=== PATIENT | female | born 1965 | race African-American/Black ===

== ENCOUNTER → 2016-02-28 | Emergency (ER) | payer MEDICARE, OTHER ==
[~2016-02-28] VITALS: Ht 172.7 cm; Wt 74.0 kg
[~2016-02-28] MED LIST: BACTDS PO; HYDR-902 PO; HYDR4TAB18 PO; LEVO175T6 PO; LINA5TAB PO; MES250 PO; METO25TA4 PO; PENT400T2 PO; SIMVASTATIN; ZANTAC
[2016-02-28 00:32] VITALS: Ht 172.7 cm; Wt 74.0 kg
--- NOTE | 2016-02-28 01:32 | RADRPT ---
PROCEDURE: CT Brain without contrast. CLINICAL INDICATION: fall TECHNIQUE: A CT of the brain was performed on a [employer] 64-slice CT scanner utilizing axial imaging from the skull base through the vertex without IV contrast. The CTDIvol is 45.01 mGy and th e DLP is 720.238 mGycm. One or more of the following dose reduction techniques were utilized: Auto mated exposure control, adjustment of the mA and/or kV according to patient size, use of iterative r econstruction technique. COMPARISON: 11/21/2012 CT brain. FINDINGS: There is no intracranial hemorrhage, mass effect, or midline shift. Large right supraorbital soft t issue hematoma without underlying fracture. No extra-axial fluid collection is seen. The ventricles and sulci are normal in size and configurati on. Mild parenchymal volume loss. The density of the brain is normal, and the lindsey white matter dif ferentiation appears well-preserved. The visualized paranasal sinuses and osseous structures are gr ossly unremarkable. IMPRESSION: 1. Large right supraorbital soft tissue hematoma without underlying calvarial or maxillofacial frac ture. 2. Mild parenchymal volume loss. RPTAT:AAJJ Physician Khari Date Time Electronically viewed and signed by Physician Khari on 02/28/2016 01:32 LEONARDO/
--- NOTE | 2016-02-28 01:52 | ERD ---
ER Documentation Chief Complaint Date/Time DATE: 02/28/16 TIME: 01:52 Chief Complaint RT FOREHEAD HEMATOMA S/P TRIP AND FALL YESTERDAY; DENIES KO OR ALOC; + ASA HPI This is a 50-year-old female who comes the right forehead hematoma status was doing fine yesterday. She denies loss consciousness. She is on aspirin. No other current complaints. ROS All systems reviewed and are negative except as per history of present illness. Medications Home Meds Active Scripts Hydromorphone Hcl* (Dilaudid*) 4 Mg Tablet, 4 MG PO Q6H Y for PAIN, #30 TAB Prov:KAYDEN VENTURA MD 10/04/15 Mesalamine* (Pentasa*) 250 Mg Capsule.sa, 1000 MG PO QID for 90 Days Prov:KAYDEN VENTURA MD 10/03/15 Pentoxifylline* (Pentoxifylline*) 400 Mg Tablet.sa, 400 MG PO TID for 90 Days, # 90 Prov:KAYDEN VENTURA MD 10/03/15 Linagliptin (TRADJENTA) 5 Mg Tablet, 5 MG PO DAILY for 90 Days, #90 TAB Prov:KAYDEN VENTURA MD 10/03/15 Sulfamethoxazole-Trimethoprim* (Bactrim* DS) 800-160 Mg Tab, 1 TAB PO BID for 7 Days, #14 TAB Prov:ARASELI MILLER MD 09/29/15 Reported Medications Metoprolol Tartrate* (Lopressor*) 25 Mg Tablet, 25 MG PO BID, #60 TAB 09/26/15 Levothyroxine Sodium* (Levothyroxine Sodium*) 175 Mcg Tablet, 175 MCG PO BEFORE BREAKFAST, #30 TAB 09/26/15 [Simvastatin] No Conflict Check 09/06/15 [Zantac] No Conflict Check 09/06/15 Allergies Allergies: Coded Allergies: No Known Drug Allergies (Verified Allergy, Unknown, 10/25/14) PMhx/Soc History of Surgery: Yes (arthoroscopy surgery RIGHT SHOULDER, AV FISTULA ) Anesthesia Reaction: No Hx Neurological Disorder: No Hx Respiratory Disorders: No Hx Cardiac Disorders: Yes (hypertension, DYSLIPIDEMIA) Hx Psychiatric Problems: No Hx Miscellaneous Medical Probl: No Hx Alcohol Use: No Hx Substance Use: No Hx Tobacco Use: No Smoking Status: Never smoker Physical Exam Vitals Vital Signs Date Time Temp Pulse Resp B/P Pulse Ox O2 Delivery O2 Flow Rate FiO2 02/28/16 00:40 98.7 102 19 169/105 100 Room Air 02/28/16 00:32 98.7 102 19 192/95 100 Physical Exam Const: [] Head: Atraumatic Eyes: Normal Conjunctiva ENT: Normal External Ears, Nose and Mouth. Neck: Full range of motion..~ No meningismus. Resp: Clear to auscultation bilaterally Cardio: Regular rate and rhythm, no murmurs Abd: Soft, non tender, non distended. Normal bowel sounds Skin: No petechiae or rashes Back: No midline or flank tenderness Ext: No cyanosis, or edema Neur: Awake and alert Psych: Normal Mood and Affect Results 24 hrs Current Medications Medications (Trade) Dose Ordered Sig/Cheng Route PRN Reason Start Time Stop Time Status Last Admin Dose Admin Hydralazine HCl (Apresoline) 100 mg ONCE ONCE PO 02/28/16 01:00 02/28/16 01:01 DC 02/28/16 01:32 Procedures/MDM Head CT is negative Medical decision-makin-year-old female suffered a mechanical fall. Clinically stable. Nonfocal neurologic. Will be discharged home. Departure Diagnosis: Primary Impression: Closed head injury Encounter type: initial encounter Qualified Code: S09.90XA - Closed head injury, initial encounter Condition: Stable EVENS WANG Feb 28, 2016 01:52
[2016-02-28 02:19] VITALS: BP 167/89; PULSE 98; RESP 19; TEMP 98.7
== END | disposition home or self-care (01) ==
LOC: E/R 00:18
DX: S00.83XA Contusion of other part of head, initial encounter (principal); I10 Essential (primary) hypertension; E11.9 Type 2 diabetes mellitus without complications; W01.0XXA Fall on same level from slipping, tripping and stumbling without subsequent striking against object, initial encounter; Y92.9 Unspecified place or not applicable; Z79.82 Long term (current) use of aspirin
CPT/HCPCS: 70450

== ENCOUNTER 2016-07-18 07:51 | Emergency (ER) | payer MEDICARE, OTHER ==
[~2016-07-18] VITALS: Ht 157.5 cm; Wt 60.0 kg
[2016-07-18 07:54] VITALS: Ht 157.5 cm; Wt 60.0 kg
[2016-07-18 08:37] LABS: ADD SCAN DIFF NO
--- NOTE | 2016-07-18 08:40 | RADRPT ---
PROCEDURE: XR Chest. CLINICAL INDICATION: Chest pain, CVA TECHNIQUE: Single frontal view of the chest was obtained. COMPARISON: 09/26/2015 FINDINGS: The heart is within normal limits. The thoracic aorta is calcified. There are mild linear bibasilar atelectatic changes. The lungs are otherwise clear. There is no pleural effusion or pneumothorax. RPTAT: AA IMPRESSION: Mild linear bibasilar atelectatic changes. Calcified aorta consistent with atherosclerotic disease. .Reji Mack MD, Date Time Electronically viewed and signed by .Reji Mack MD, on 07/18/2016 08:40 .S/
--- NOTE | 2016-07-18 08:49 | RADRPT ---
PROCEDURE: CT brain without contrast CLINICAL INDICATION: Possible stroke, neurologic deficit TECHNIQUE: CT of the brain without contrast performed on a multidetector CT scanner, with multiplan ar reformats. One or more of the following dose reduction techniques were used: Automated exposure control, adjustment in mA and / or kV according to patient size, use of iterative reconstructive sophia hnique. CTDIvol = 45 mGy; DLP = 630 mGy-cm. COMPARISON: 02/28/2016 FINDINGS: No acute intracranial hemorrhage is identified. No extra-axial fluid collection is seen. There is no mass effect. No midline shift is identified. Ventricles and sulci are mildly enlarged compatible with volume loss. There are mild areas of hypodensity in the periventricular - deep white matter which are nonspecific but suggestive of chronic small vessel ischemic changes. Todd-white differentiation appears preser mitchell. Noted is a partly empty sella. Atherosclerotic calcifications of the proximal intracranial, and visualized extracranial arteries ar e noted. Osseous structures are unremarkable. Mastoid air cells and imaged paranasal sinuses grossly clear. IMPRESSION: 1. No acute intracranial pathology identified. Consider further evaluation with MRI. 2. Mild volume loss, with mild chronic small vessel ischemic changes. RPTAT: VV .Toro Norris MD, MD Date Time Electronically viewed and signed by .Toro Norris MD, on 07/18/2016 08:48 .O/
[2016-07-18 08:57] LABS: ANION GAP 15 (8-16); BASOPHILS % 0.4 % (0.0-2.0); BLOOD UREA NITROGEN 16 mg/dl (7-20); CARBON DIOXIDE 35 mmol/L (21-31); CHLORIDE 92 mmol/L (97-110); CREATININE 4.34 mg/dl (0.44-1.00); EOSINOPHILS # 0.1 10^3/ul (0.0-0.5); EOSINOPHILS % 2.2 % (0.0-7.0); GLUCOSE 186 mg/dl (70-220); HEMATOCRIT 33.7 % (37.0-47.0); INR 0.91; LYMPHOCYTES # 1.2 10^3/ul (0.8-2.9); LYMPHOCYTES % 25.5 % (15.0-51.0); MEAN CORPUSCULAR HEMOGLOBIN 30.3 pg (29.0-33.0); MEAN CORPUSCULAR HGB CONC 32.6 g/dl (32.0-37.0); MEAN CORPUSCULAR VOLUME 92.8 fl (82.0-101.0); MEAN PLATELET VOLUME 11.6 fl (7.4-10.4); MONOCYTE # 0.4 10^3/ul (0.3-0.9); MONOCYTES % 8.1 % (0.0-11.0); NEUTROPHIL # 2.9 10^3/ul (1.6-7.5); NEUTROPHILS % 63.4 % (39.0-77.0); PLATELET COUNT 133 10^3/UL (140-415); POTASSIUM 3.8 mmol/L (3.5-5.1); PROTIME 12.3 Sec (12.2-14.2); RED BLOOD COUNT 3.63 10^6/ul (4.20-5.40); RED CELL DISTRIBUTION WIDTH 13.8 % (11.5-14.5); SODIUM 138 mmol/L (135-144); WHITE BLOOD COUNT 4.6 10^3/ul (4.8-10.8)
[2016-07-18 08:58] LABS: PARTIAL THROMBOPLASTIN TIME 29.2 Sec (25.0-35.0)
[2016-07-18] MEDS ORDERED: morphine 4 MG/ML VIAL IV STA (09:00)
[2016-07-18] MEDS ORDERED: ONDANSETRON 4 MG INJ IV STA (09:00)
[2016-07-18 09:16] LABS: TROPONIN-I < 0.012 ng/ml (0.00-0.12)
[2016-07-18] MEDS ORDERED: ONDA4TAB14 PO (09:30)
[2016-07-18] MEDS ORDERED: HYDR-902 PO (09:30)
[2016-07-18] MEDS ORDERED: MECL12.574 PO (09:30)
--- NOTE | 2016-07-18 09:32 | ERD ---
ER Documentation Chief Complaint Date/Time DATE: 07/18/16 TIME: 09:32 Chief Complaint morley,dizziness, loss balance, just had dialyisis, dc from [facility] yesterday HPI Patient is a 51-year-old female with dialysis, diabetes, hypertension, coronary disease, and recent stroke who presents with right-sided weakness. She has had more weakness with walking. Dr. Thompson had told her to come to the emergency department because "her speech was worse". She was discharged from [facility] yesterday after being admitted and having a workup for stroke including MRI of the brain and consultation with neurology. She had been admitted on Friday when "something popped in my eye and I had a headache". She had dialysis today. She tried Tylenol for pain. Her primary doctor is Dr. Stephens. Upon review of old medical record she has multiple visits to the ER for various complaints. ROS All systems reviewed and are negative except as per history of present illness. Medications Home Meds Active Scripts Meclizine Hcl* (Antivert*) 12.5 Mg Tab, 25 MG PO Q6H Y for DIZZINESS, #20 TAB Prov:LYDIA HICKEY MD 07/18/16 Ondansetron (Ondansetron Odt) 4 Mg Tab.rapdis, 4 MG PO Q6H Y for NAUSEA AND/OR VOMITING, #10 TAB Prov:LYDIA HICKEY MD 07/18/16 Hydrocodone/Acetaminophen ([place] 10-325 Tablet) 1 Each Tablet, 1 TAB PO Q6H Y for PAIN, #7 TAB Prov:LYDIA HICKEY MD 07/18/16 Hydrocodone/Acetaminophen ([place] 10-325 Tablet) 1 Each Tablet, 1 TAB PO Q6H Y for PAIN, #20 TAB Prov:EVENS WANG 02/28/16 Hydromorphone Hcl* (Dilaudid*) 4 Mg Tablet, 4 MG PO Q6H Y for PAIN, #30 TAB Prov:KAYDEN VENTURA MD 10/04/15 Mesalamine* (Pentasa*) 250 Mg Capsule.sa, 1000 MG PO QID for 90 Days Prov:KAYDEN VENTURA MD 10/03/15 Pentoxifylline* (Pentoxifylline*) 400 Mg Tablet.sa, 400 MG PO TID for 90 Days, # 90 Prov:KAYDEN VENTURA MD 10/03/15 Linagliptin (TRADJENTA) 5 Mg Tablet, 5 MG PO DAILY for 90 Days, #90 TAB Prov:KAYDEN VENTURA MD 10/03/15 Sulfamethoxazole-Trimethoprim* (Bactrim* DS) 800-160 Mg Tab, 1 TAB PO BID for 7 Days, #14 TAB Prov:ARASELI MILLER MD 09/29/15 Reported Medications Metoprolol Tartrate* (Lopressor*) 25 Mg Tablet, 25 MG PO BID, #60 TAB 09/26/15 Levothyroxine Sodium* (Levothyroxine Sodium*) 175 Mcg Tablet, 175 MCG PO BEFORE BREAKFAST, #30 TAB 09/26/15 [Simvastatin] No Conflict Check 09/06/15 [Zantac] No Conflict Check 09/06/15 Allergies Allergies: Coded Allergies: No Known Drug Allergies (Verified Allergy, Unknown, 10/25/14) PMhx/Soc History of Surgery: Yes (arthoroscopy surgery RIGHT SHOULDER, AV FISTULA ) Anesthesia Reaction: No Hx Neurological Disorder: No Hx Respiratory Disorders: No Hx Cardiac Disorders: Yes (hypertension, DYSLIPIDEMIA) Hx Psychiatric Problems: No Hx Miscellaneous Medical Probl: No Hx Alcohol Use: No Hx Substance Use: No Hx Tobacco Use: No Smoking Status: Never smoker FmHx Family History: No diabetes Physical Exam Vitals Vital Signs Date Time Temp Pulse Resp B/P Pulse Ox O2 Delivery O2 Flow Rate FiO2 07/18/16 08:29 0 07/18/16 07:54 97.8 83 18 158/76 99 Physical Exam Const: No acute distress Head: Atraumatic Eyes: Normal Conjunctiva ENT: Normal External Ears, Nose and Mouth. Neck: Full range of motion..~ No meningismus. Resp: Clear to auscultation bilaterally Cardio: Regular rate and rhythm, no murmurs Abd: Soft, non tender, non distended. Normal bowel sounds Skin: No petechiae or rashes Back: No midline or flank tenderness Ext: No cyanosis, or edema Neur: Awake and alert, slurred speech per the , no weakness of the upper or lower extremities bilaterally, no facial droop Psych: Normal Mood and Affect Result Diagram: 07/18/16 0825 07/18/16 0825 Results 24 hrs Laboratory Tests Test 07/18/16 08:25 07/18/16 09:04 White Blood Count 4.610^3/ul Red Blood Count 3.6310^6/ul Hemoglobin 11.0g/dl Hematocrit 33.7% Mean Corpuscular Volume 92.8fl Mean Corpuscular Hemoglobin 30.3pg Mean Corpuscular Hemoglobin Concent 32.6g/dl Red Cell Distribution Width 13.8% Platelet Count 92223^3/UL Mean Platelet Volume 11.6fl Neutrophils % 63.4% Lymphocytes % 25.5% Monocytes % 8.1% Eosinophils % 2.2% Basophils % 0.4% Nucleated Red Blood Cells % 0.0/100WBC Neutrophils # 2.910^3/ul Lymphocytes # 1.210^3/ul Monocytes # 0.410^3/ul Eosinophils # 0.110^3/ul Basophils # 0.010^3/ul Nucleated Red Blood Cells # 0.010^3/ul Prothrombin Time 12.3Sec Prothrombin Time Ratio 1.0 INR International Normalized Ratio 0.91 Activated Partial Thromboplast Time 29.2Sec Sodium Level 138mmol/L Potassium Level 3.8mmol/L Chloride Level 92mmol/L Carbon Dioxide Level 35mmol/L Anion Gap 15 Blood Urea Nitrogen 16mg/dl Creatinine 4.34mg/dl Glucose Level 186mg/dl Hemoglobin A1c 7.5% Calcium Level 10.0mg/dl Troponin I < 0.012ng/ml Bedside Glucose 170mg/dL Current Medications Medications (Trade) Dose Ordered Sig/Cheng Route PRN Reason Start Time Stop Time Status Last Admin Dose Admin Morphine Sulfate (morphine) 4 mg ONCE STAT IV 07/18/16 09:00 07/18/16 09:01 DC 07/18/16 09:15 Ondansetron HCl (Zofran Inj) 4 mg ONCE STAT IV 07/18/16 09:00 07/18/16 09:01 DC 07/18/16 09:15 Acetaminophen/ Hydrocodone Bitart ([place] (10/325)) 1 tab ONCE ONCE PO 07/18/16 10:00 07/18/16 10:01 DC 07/18/16 09:41 Ondansetron HCl (Zofran Odt) 4 mg ONCE STAT ODT 07/18/16 09:35 07/18/16 09:36 DC 07/18/16 09:41 Procedures/MDM EKG read by me: Rate/Rhythm: Regular rate and rhythm at a rate of 83 Intervals: Normal Impression: No evidence of ischemia or arrhythmia CT brain shows no intracranial hemorrhage or mass per radiology. Patient is a 51-year-old female with multiple medical problems as well as recent stroke who presents with slurred speech and weakness. She presents with similar symptoms that she was just admitted for on Friday to [facility]. I spoke with her doctor Dr. Stephens who does not feel that she requires a readmission as she already has been seen by neurology and had an MRI. He will follow-up with her as an outpatient and also recommended that she follow-up with her neurologist. The patient can return for any worsening symptoms. I believe outpatient management is appropriate at this time. I doubt intracranial mass or hemorrhage. I do believe the patient has had a recent acute stroke. Departure Diagnosis: Primary Impression: Dizziness Additional Impression: Stroke CVA mechanism: unspecified Qualified Code: I63.9 - Cerebrovascular accident (CVA), unspecified mechanism Condition: Fair Patient Instructions: Stroke: Self-Care Additional Instructions: Call your primary care doctor TOMORROW for an appointment during the next 1-2 days.See the doctor sooner or return here if your condition worsens before your appointment time. LYDIA HICKEY MD Jul 18, 2016 09:32
[2016-07-18] MEDS ORDERED: ONDANSETRON (ODT) 4 MG TAB ODT STA (09:35)
[2016-07-18] MEDS ORDERED: HYDROCODONE/APAP (10/325) TAB PO ONE (10:00)
== END 2016-07-18 11:31 | disposition home or self-care (01) ==
LOC: E/R 07:51
DX: R42 Dizziness and giddiness (principal); I63.9 Cerebral infarction, unspecified; I10 Essential (primary) hypertension; E11.9 Type 2 diabetes mellitus without complications; I25.10 Atherosclerotic heart disease of native coronary artery without angina pectoris; Z79.84 Long term (current) use of oral hypoglycemic drugs; Z99.2 Dependence on renal dialysis
CPT/HCPCS: 36415; 70450; 71010; 80048; 82962; 83036; 84484; 85025; 85610; 85730; 93005; 96374; 96375; 99285; J2270; J2405

== ENCOUNTER 2016-11-09 20:14 | Observation (INO) | payer MEDICARE, OTHER ==
[~2016-11-09] VITALS: Ht 167.6 cm; Wt 71.0 kg
[~2016-11-09 20:14] MED LIST changes: -HYDR4TAB18 PO; +HYDR4TAB51 PO; +MECL12.574 PO; +ONDA4TAB14 PO
[2016-11-09 20:18] VITALS: Ht 167.6 cm; Wt 71.0 kg
[2016-11-09] MEDS ORDERED: KETOROLAC 15 MG INJ IV STA (20:45)
[2016-11-09] MEDS ORDERED: ASPIRIN 81 MG TAB PO ONE (21:00)
--- NOTE | 2016-11-09 21:18 | ERA ---
ER Documentation Chief Complaint Date/Time DATE: 11/09/16 TIME: 21:13 Chief Complaint chest pain, right rib pain x 2 days, dialyzed today HPI 51-year-old woman complains of substernal chest pain vague discomfort 2 days associated with cough. Patient states the pain is only present with cough. She has had tactile fevers as well and underwent hemodialysis today. She denies sore throat, no vomiting or diarrhea, no shortness of breath, no calf or leg swelling. ROS All systems reviewed and are negative except as per history of present illness. Medications Home Meds Active Scripts Meclizine Hcl* (Antivert*) 12.5 Mg Tab, 25 MG PO Q6H Y for DIZZINESS, #20 TAB Prov:LYDIA HICKEY MD 07/18/16 Ondansetron (Ondansetron Odt) 4 Mg Tab.rapdis, 4 MG PO Q6H Y for NAUSEA AND/OR VOMITING, #10 TAB Prov:LYDIA HICKEY MD 07/18/16 Hydrocodone/Acetaminophen ([place] 10-325 Tablet) 1 Each Tablet, 1 TAB PO Q6H Y for PAIN, #7 TAB Prov:LYDIA HICKEY MD 07/18/16 Hydrocodone/Acetaminophen ([place] 10-325 Tablet) 1 Each Tablet, 1 TAB PO Q6H Y for PAIN, #20 TAB Prov:EVENS WANG 02/28/16 Hydromorphone Hcl* (Dilaudid*) 4 Mg Tablet, 4 MG PO Q6H Y for PAIN, #30 TAB Prov:KAYDEN VENTURA MD 10/04/15 Mesalamine* (Pentasa*) 250 Mg Capsule.sa, 1000 MG PO QID for 90 Days Prov:KAYDEN VENTURA MD 10/03/15 Pentoxifylline* (Pentoxifylline*) 400 Mg Tablet.sa, 400 MG PO TID for 90 Days, # 90 Prov:KAYDEN VENTURA MD 10/03/15 Linagliptin (TRADJENTA) 5 Mg Tablet, 5 MG PO DAILY for 90 Days, #90 TAB Prov:KAYDEN VENTURA MD 10/03/15 Sulfamethoxazole-Trimethoprim* (Bactrim* DS) 800-160 Mg Tab, 1 TAB PO BID for 7 Days, #14 TAB Prov:ARASELI MILLER MD 09/29/15 Reported Medications Metoprolol Tartrate* (Lopressor*) 25 Mg Tablet, 25 MG PO BID, #60 TAB 09/26/15 Levothyroxine Sodium* (Levothyroxine Sodium*) 175 Mcg Tablet, 175 MCG PO BEFORE BREAKFAST, #30 TAB 09/26/15 [Simvastatin] No Conflict Check 09/06/15 [Zantac] No Conflict Check 09/06/15 Allergies Allergies: Coded Allergies: No Known Drug Allergies (Verified Allergy, Unknown, 10/25/14) PMhx/Soc Previous ischemic colitis, colon adenoma, hyperlipidemia, papillary thyroid carcinoma, End-stage kidney disease with hemodialysis, hemodialyzed today, diabetes mellitus, hypertension, CAD status post stent placement, previous stroke with right-sided paresis History of Surgery: Yes (arthoroscopy surgery RIGHT SHOULDER, AV FISTULA ) Anesthesia Reaction: No Hx Neurological Disorder: No Hx Respiratory Disorders: No Hx Cardiac Disorders: Yes (hypertension, DYSLIPIDEMIA) Hx Psychiatric Problems: No Hx Miscellaneous Medical Probl: No Hx Alcohol Use: No Hx Substance Use: No Hx Tobacco Use: No FmHx Family History: diabetes Physical Exam Vitals Vital Signs Date Time Temp Pulse Resp B/P Pulse Ox O2 Delivery O2 Flow Rate FiO2 11/09/16 21:21 99.4 102 22 167/84 99 Room Air 11/09/16 20:18 100.1 103 20 181/92 100 Physical Exam GENERAL: Well-developed, well-nourished, well-hydrated, in no apparent distress , looks nontoxic in appearance, patient was afebrile rectal temperature 99F. HEENT: Moist mucous membranes, pink conjunctiva, no cervical spine tenderness or step-off deformities, no goiter, no jaundice or icterus, extraocular movements intact without pain. No submandibular induration, and no pharyngeal erythema NEURO: Alert and oriented 3, cranial nerves II through XII intact bilaterally, pupils equal round reactive to light, no focal deficits or facial asymmetry, sensation intact distally Strength 5/5 in upper and lower extremities bilaterally CARDIAC: Regular rate and rhythm, no murmurs rubs or gallops LUNGS: Clear bilaterally no wheezing crackles or stridor ABDOMEN: Soft nontender, no guarding, no rigidity, no rebound, no psoas sign no obturator sign. Normoactive bowel sounds SKIN: Warm and dry to touch, no abrasions, contusions, or hematomas, no lacerations, no ecchymosis, no target lesions, and without ulcers EXTREMITIES: No clubbing cyanosis or edema, calves are bilaterally symmetrical, no Homans sign, no popliteal cord sign. Distal pulses equal and bilateral PSYCH: Normal affect without agitation or irritability Result Diagram: 11/09/16209911/09/16 2100 Results 24 hrs Laboratory Tests Test 11/09/16 21:00 White Blood Count 5.910^3/ul Red Blood Count 3.4410^6/ul Hemoglobin 10.1g/dl Hematocrit 31.7% Mean Corpuscular Volume 92.2fl Mean Corpuscular Hemoglobin 29.4pg Mean Corpuscular Hemoglobin Concent 31.9g/dl Red Cell Distribution Width 13.7% Platelet Count 57457^3/UL Mean Platelet Volume 12.5fl Neutrophils % 65.8% Lymphocytes % 22.4% Monocytes % 9.3% Eosinophils % 2.0% Basophils % 0.3% Nucleated Red Blood Cells % 0.0/100WBC Neutrophils # 3.910^3/ul Lymphocytes # 1.310^3/ul Monocytes # 0.610^3/ul Eosinophils # 0.110^3/ul Basophils # 0.010^3/ul Nucleated Red Blood Cells # 0.010^3/ul Sodium Level 140mmol/L Potassium Level 4.7mmol/L Chloride Level 96mmol/L Carbon Dioxide Level 31mmol/L Anion Gap 18 Blood Urea Nitrogen 37mg/dl Creatinine 7.97mg/dl Glucose Level 119mg/dl Calcium Level 10.3mg/dl Total Bilirubin 0.3mg/dl Direct Bilirubin 0.00mg/dl Indirect Bilirubin 0.3mg/dl Aspartate Amino Transf (AST/SGOT) 14IU/L Alanine Aminotransferase (ALT/SGPT) 22IU/L Alkaline Phosphatase 253IU/L Troponin I < 0.012ng/ml Total Protein 8.2g/dl Albumin 4.3g/dl Globulin 3.90g/dl Albumin/Globulin Ratio 1.10 Lipase 65U/L Current Medications Medications (Trade) Dose Ordered Sig/Cheng Route PRN Reason Start Time Stop Time Status Last Admin Dose Admin Ketorolac Tromethamine (Toradol) 15 mg ONCE STAT IV 11/09/16 20:45 11/09/16 20:47 DC 11/09/16 20:54 Aspirin (Aspirin) 324 mg ONCE ONCE PO 11/09/16 21:00 11/09/16 21:01 DC 11/09/16 20:54 Procedures/MDM IV line was established patient was placed on alarm security or surveillance monitor rhythm strip revealed a sinus tachycardia at 110 bpm with upright P and T waves. Patient was afebrile. Blood cultures were ordered results are pending I will follow-up. EKG performed, read by me revealed a sinus tachycardia 103 bpm, normal axis, narrow QRS complex, no concerning ST elevations or depressions noted. Chest X-ray 1V Interpreted by me: Soft Tissue: No acute abnormalities Bones: No acute abnormalities Mediastinum/Cardiac Silhouette/Lungs: No acute abnormalities CBC was unremarkable, electrolytes revealed kidney failure normal potassium, liver function tests normal, troponin was negative. Given the patient's strong cardiac history and symptoms I did treat her here with aspirin 324 mg p.o. for cardioprotective measures. She was also given Toradol 15 mg IV 1. Patient will be admitted to telemetry setting for continued medical management cardiology consultation. Dr. Zeng's group was paged for cardiology consultation, Dr. Thompson has been paged as well. Departure Diagnosis: Primary Impression: Chest pain Qualified Code: R07.9 - Chest pain, unspecified type Additional Impressions: Hypertension Qualified Code: I10 - Essential hypertension End stage kidney disease Condition: MARCELLE Birch MD Nov 09, 2016 21:18
--- NOTE | 2016-11-09 21:32 | RADRPT ---
PROCEDURE: XR Chest. CLINICAL INDICATION: Abdominal pain. TECHNIQUE: Single frontal view. COMPARISON: 07/18/2016. FINDINGS: The lungs are clear. The heart is mildly enlarged. There is calcification in the aorta consistent with atherosclerosis. There is no pleural effusion or pneumothorax. Surgical clips are present in the neck IMPRESSION: 1. Clear lungs. 2. Mild cardiomegaly. 3. Atherosclerosis. 4. Surgical clips in the neck. RPTAT: QQ .Soy Steel MD, MD Date Time Electronically viewed and signed by .Soy Steel MD, MD on 11/09/2016 21:32 .R/
[2016-11-09 21:54] LABS: BASOPHILS % 0.3 % (0.0-2.0); EOSINOPHILS # 0.1 10^3/ul (0.0-0.5); HEMATOCRIT 31.7 % (37.0-47.0); HEMOGLOBIN 10.1 g/dl (12.0-16.0); LYMPHOCYTES # 1.3 10^3/ul (0.8-2.9); LYMPHOCYTES % 22.4 % (15.0-51.0); MEAN CORPUSCULAR HEMOGLOBIN 29.4 pg (29.0-33.0); MEAN CORPUSCULAR HGB CONC 31.9 g/dl (32.0-37.0); MEAN CORPUSCULAR VOLUME 92.2 fl (82.0-101.0); MEAN PLATELET VOLUME 12.5 fl (7.4-10.4); MONOCYTE # 0.6 10^3/ul (0.3-0.9); MONOCYTES % 9.3 % (0.0-11.0); NEUTROPHIL # 3.9 10^3/ul (1.6-7.5); NEUTROPHILS % 65.8 % (39.0-77.0); PLATELET COUNT 136 10^3/UL (140-415); RED BLOOD COUNT 3.44 10^6/ul (4.20-5.40); RED CELL DISTRIBUTION WIDTH 13.7 % (11.5-14.5); WHITE BLOOD COUNT 5.9 10^3/ul (4.8-10.8)
[2016-11-09 22:02] LABS: ALANINE AMINOTRANSFERASE 22 IU/L (13-69); ALBUMIN 4.3 g/dl (3.3-4.9); ALKALINE PHOSPHATASE 253 IU/L (42-121); ANION GAP 18 (8-16); ASPARTATE AMINO TRANSFERASE 14 IU/L (15-46); BILIRUBIN,INDIRECT 0.3 mg/dl (0-1.1); BILIRUBIN,TOTAL 0.3 mg/dl (0.2-1.3); BLOOD UREA NITROGEN 37 mg/dl (7-20); CALCIUM 10.3 mg/dl (8.4-10.2); CARBON DIOXIDE 31 mmol/L (21-31); CHLORIDE 96 mmol/L (97-110); CREATININE 7.97 mg/dl (0.44-1.00); GLUCOSE 119 mg/dl (70-220); POTASSIUM 4.7 mmol/L (3.5-5.1); SODIUM 140 mmol/L (135-144); TOTAL PROTEIN 8.2 g/dl (6.1-8.1)
[2016-11-09 22:15] LABS: TROPONIN-I < 0.012 ng/ml (0.00-0.12)
[2016-11-09 23:00] VITALS: TEMP 99
[2016-11-09] MEDS ORDERED: HYDROCODONE/APAP (10/325) TAB PO PRN ×2 (23:00)
[2016-11-09] MEDS ORDERED: ONDANSETRON 4 MG TAB PO PRN (23:00)
[2016-11-09] MEDS ORDERED: HYDROCODONE/APAP (5/325) TAB PO PRN (23:00)
[2016-11-09] MEDS: METOPROLOL 25 MG TAB PO SCH (23:00)
[2016-11-09] MEDS ORDERED: MECLIZINE 25 MG TAB PO PRN (23:00)
[2016-11-09] MEDS ORDERED: ACETAMINOPHEN 650 MG SUPP PR PRN (23:00)
[2016-11-09] MEDS ORDERED: LORAZEPAM 0.5 MG TAB PO PRN (23:00)
[2016-11-09] MEDS ORDERED: DOCUSATE SODIUM 100 MG CAP PO PRN (23:00)
[2016-11-09] MEDS ORDERED: ONDANSETRON (ODT) 4 MG TAB ODT PRN (23:00)
[2016-11-09] MEDS ORDERED: NACL 0.9% 3 ML SYG IV SCH (23:00)
[2016-11-09] MEDS ORDERED: SEVE800T7 PO (23:29)
[2016-11-09] MEDS ORDERED: METO-448 PO (23:29)
[2016-11-09] MEDS ORDERED: LEVO175T2 PO (23:29)
[2016-11-09 23:49] LABS: CREATINE KINASE 71 IU/L (23-200)
[2016-11-10] VITALS (8 sets, daily range): BP systolic 135–189; BP diastolic 66–92; PULSE 72–92; RESP 17–19
[2016-11-10 00:02] LABS: CK-MB 0.66 ng/ml (0.0-2.4)
[2016-11-10 00:10] LABS: TROPONIN-I < 0.012 ng/ml (0.00-0.12)
[2016-11-10] MEDS ORDERED: GLUCAGON 1 MG INJ IM PRN (00:30)
[2016-11-10] MEDS ORDERED: GLUCOSE GEL 15 GRAM TUBE BUCCAL PRN (00:30)
[2016-11-10] MEDS ORDERED: DEXTROSE 50% 50 ML SYRINGE IV PRN ×2 (00:30)
[2016-11-10] MEDS ORDERED: GLUCOSE GEL 15 GRAM TUBE PO PRN ×2 (00:30)
[2016-11-10] MEDS ORDERED: PROMETHAZINE/CODEINE 5ML CUP PO PRN (02:00)
[2016-11-10] MEDS ORDERED: ACCU-CHEK XX SCH ×2 (02:00→09:55)
[2016-11-10] MEDS: CALCIUM CARBONATE 500 MG CHEW TAB PO SCH ×3 (02:03→08:36)
[2016-11-10] MEDS ORDERED: HEPARIN 5,000 UNIT/0.5 ML VIAL SC SCH (06:00)
[2016-11-10 06:57] LABS: BASOPHILS % 0.5 % (0.0-2.0); EOSINOPHILS # 0.1 10^3/ul (0.0-0.5); EOSINOPHILS % 2.3 % (0.0-7.0); HEMOGLOBIN 8.5 g/dl (12.0-16.0); LYMPHOCYTES # 1.6 10^3/ul (0.8-2.9); MEAN CORPUSCULAR HEMOGLOBIN 28.9 pg (29.0-33.0); MEAN CORPUSCULAR HGB CONC 31.5 g/dl (32.0-37.0); MEAN CORPUSCULAR VOLUME 91.8 fl (82.0-101.0); MEAN PLATELET VOLUME 12.6 fl (7.4-10.4); MONOCYTE # 0.4 10^3/ul (0.3-0.9); MONOCYTES % 9.1 % (0.0-11.0); NEUTROPHIL # 1.9 10^3/ul (1.6-7.5); NEUTROPHILS % 48.8 % (39.0-77.0); PLATELET COUNT 110 10^3/UL (140-415); RED BLOOD COUNT 2.94 10^6/ul (4.20-5.40); RED CELL DISTRIBUTION WIDTH 13.7 % (11.5-14.5)
[2016-11-10] MEDS ORDERED: LEVOTHYROXINE 175 MCG TAB PO SCH (07:00)
[2016-11-10 07:20] LABS: CREATINE KINASE 61 IU/L (23-200)
[2016-11-10 07:30] LABS: CK-MB 0.65 ng/ml (0.0-2.4)
[2016-11-10] MEDS: SEVELAMER CARBONATE 0.8 GM PKT PO SCH ×2 (07:34→07:55)
[2016-11-10 07:35] LABS: TROPONIN-I < 0.012 ng/ml (0.00-0.12)
[2016-11-10 07:42] LABS: ALBUMIN 3.3 g/dl (3.3-4.9); ALBUMIN/GLOBULIN RATIO 1.13; BILIRUBIN,INDIRECT 0.1 mg/dl (0-1.1); BILIRUBIN,TOTAL 0.1 mg/dl (0.2-1.3); CALCIUM 9.6 mg/dl (8.4-10.2); CREATININE 8.49 mg/dl (0.44-1.00); POTASSIUM 4.9 mmol/L (3.5-5.1); TOTAL PROTEIN 6.2 g/dl (6.1-8.1)
[2016-11-10] MEDS ORDERED: INSULIN ASPART [NOVOLOG] 3 ML PEN SC SCH (07:55)
[2016-11-10] MEDS: MESALAMINE (SR) 250 MG CAP PO SCH ×2 (08:28→08:35)
[2016-11-10] MEDS: PENTOXIFYLLINE (SR) 400 MG TAB PO SCH ×2 (08:29→08:36)
[2016-11-10] MEDS: METOPROLOL 25 MG TAB PO SCH (08:31)
[2016-11-10] MEDS ORDERED: LINAGLIPTIN 5 MG TABLET PO SCH (09:00)
[2016-11-10] MEDS ORDERED: TRIMETHOPRIM/SULFAMETHOX (DS) TAB PO SCH (09:00)
[2016-11-10] MEDS ORDERED: ASPIRIN 81 MG TAB PO SCH (09:00)
[2016-11-10] MEDS ORDERED: FAMOTIDINE 20 MG TAB PO SCH (09:00)
--- NOTE | 2016-11-10 10:21 | HP ---
Date/Time of Note Date/Time of Note DATE: 11/10/16 TIME: 10:15 Assessment/Plan VTE Prophylaxis VTE Prophylaxis Intervention: heparin Lines/Catheters IV C[facility]ter Type [facility]from [facility] Urinary Cath still in place: No Assessment/Plan Problems: (1) Acute bronchitis Status: Acute Comment: Unclear cause of the bronchitis. However this is giving her the cough and the cough induced chest pain. Her admission is not an acute coronary syndrome or unstable angina. She is stable for discharge. Qualifiers: Bronchitis organism: unspecified organism Qualified Code: J20.9 - Acute bronchitis, unspecified organism (2) Hypertension Status: Acute Comment: Resume outpatient medications Qualifiers: Hypertension type: essential hypertension Qualified Code: I10 - Essential hypertension (3) End stage kidney disease Onset Date: ~ 10/2009 Status: Acute Comment: As per Dr. Ochoa Thompson (4) Papillary thyroid carcinoma Onset Date: ~ 02/2013 Status: Chronic Comment: Please note at the time of surgery she had 3 microfoci none of which were above 10 mm in size. As such she is essentially curative surgery this is not significant pathology (5) End stage renal disease on dialysis due to type 2 diabetes mellitus Status: Chronic Comment: Diabetes is adequately controlled. (6) Hiatal hernia with GERD Status: Chronic Comment: Noted and stable HPI/ROS Admit Date/Time Admit Date/Time Nov 09, 2016 at 22:29 Hx of Present Illness Charming 51-year-old -[place] woman with end-stage renal disease on CHD TIA week admitted with chest pain. As the patient tells a story she did not actually have her traditional chest pain. She does have a known history of coronary artery disease, however what had happened was that she was in her usual state of health and developed a cough. She was actually sent home from her new job on October due to this cough. She was at dialysis on Friday, 09 November and inform the dialysis team about her cough. They felt that this was not a significant cardiac issue and sent her home. She tried reaching out to Dr. Thompson her senior resident care director for assistance with above mentioned cough and received wreaked reached his covering physician. That physician advised her that since they did not know her well they would not be able to prescribe advise going to the emergency room. In the emergency room because of the pleuritic chest pain that only occurred with cough she was admitted as a rule out ROS Constitutional: no complaints Eyes: no complaints ENT: no complaints Respiratory: cough, pain (No dyspnea) Cardiovascular: no complaints Gastrointestinal: no complaints Genitourinary: no complaints Musculoskeletal: no complaints Skin: no complaints Neurologic: no complaints Endocrine: no complaints Lymphatic: no complaints PMH/Family/Social Past Medical History Medical History: cancer (Papillary carcinoma thyroid-3 microfoci at surgery i.e. incidentaloma), diabetes, hypertension, hypothyroid, renal disease Past Surgical History Status post construction of AV fistula Past Surgical Hx: no surgical history, other (Thyroidectomy) Family History Significant Family History: heart disease, diabetes, hypertension Social History Alcohol Use: none Smoking Status: Never smoker Drug Use: none Exam/Review of Systems Vital Signs Vitals Vital Signs Date Time Temp Pulse Resp B/P Pulse Ox O2 Delivery O2 Flow Rate FiO2 11/10/16 08:20 97.7 54 17 135/66 95 11/09/16 23:00 Room Air Intake and Output 11/09/16 11/09/16 11/10/16 15:00 23:00 07:00 Intake Total 200 ml Balance 200 ml Exam Constitutional: alert, oriented Eyes: EOMI, nl conjunctiva, nl lids, nl sclera Neck: non-tender, supple Respiratory: clear to auscultation, normal air movement Cardiovascular: nl pulses, regular rate and rhythm Gastrointestinal: nl liver, spleen, non-tender, soft Labs Result Diagram: 11/10/16 0610 11/10/16 0610 Medications Medications Current Medications Lorazepam (Ativan) 0.5 mg Q8H PRN PO ANXIETY; Start 11/09/16 at 23:00 Ondansetron HCl (Zofran Tab) 4 mg Q6H PRN PO NAUSEA AND/OR VOMITING; Start at 23:00 Aspirin (Aspirin) 81 mg DAILY PO Last administered on 11/10/16t 08:31; Admin Dose 81 MG; Start 11/10/16 at 09:00 Acetaminophen (Tylenol Supp) 650 mg Q6H PRN NM PAIN LEVEL 1-3 OR FEVER; Start 11/09/16 at 23:00 Acetaminophen/ Hydrocodone Bitart ([place] (5/325)) 1 tab Q6H PRN PO PAIN LEVEL 4 -6; Start 11/09/16 at 23:00 Docusate Sodium (Colace) 100 mg Q12H PRN PO CONSTIPATION; Start 11/09/16 at 23: 00 Famotidine (Pepcid) 20 mg DAILY PO ; Start 11/10/16 at 09:00 Heparin Sodium (Porcine) (Heparin (5000 Units/0.5 ml)) 5,000 unit Q8 SC Last administered on 11/10/16 06:21; Admin Dose 5,000 UNIT; Start 11/10/16 at 06:00 Calcium Carbonate (Tums) 500 mg QID PO Last administered on 11/10/16 02:03; Admin Dose 500 MG; Start 11/09/16 at 23:00 Acetaminophen/ Hydrocodone Bitart ([place] (10/325)) 1 tab Q6H PRN PO PAIN; Start 11/09/16 at 23:00 Acetaminophen/ Hydrocodone Bitart ([place] (10/325)) 1 tab Q6H PRN PO PAIN; Start 11/09/16 at 23:00 Linagliptin (Tradjenta) 5 mg DAILY PO ; Start 11/10/16 at 09:00 Meclizine HCl (Antivert) 25 mg Q6H PRN PO DIZZINESS; Start 11/09/16 at 23:00 Mesalamine (Pentasa) 1,000 mg QID PO ; Start 11/10/16 at 09:00 Metoprolol Tartrate (Lopressor) 25 mg BID PO Last administered on 11/10/16 08: 31; Admin Dose 25 MG; Start 11/09/16 at 23:00 Ondansetron HCl (Zofran Odt) 4 mg Q6H PRN ODT NAUSEA AND/OR VOMITING; Start at 23:00 Pentoxifylline (Trental) 400 mg TID PO ; Start 11/10/16 at 09:00 Trimethoprim/ Sulfamethoxazole (Bactrim (Ds)) 1 tab BID PO ; Start 11/10/16 at 09:00 Atorvastatin Calcium (Lipitor) 40 mg QHS PO ; Start 11/10/16 at 21:00 Diagnostic Test (Pha) (Accu-Chek) 1 ea 02 XX ; Start 11/10/16 at 02:00 Miscellaneous Information 1 ea NOTE XX ; Start 11/10/16 at 00:30 Glucose (Glutose) 15 gm Q15M PRN PO DECREASED GLUCOSE; Start 11/10/16 at 00:30 Glucose (Glutose) 22.5 gm Q15M PRN PO DECREASED GLUCOSE; Start 11/10/16 at 00: 30 Dextrose (D50w Syringe) 25 ml Q15M PRN IV DECREASED GLUCOSE; Start 11/10/16 at 00:30 Dextrose (D50w Syringe) 50 ml Q15M PRN IV DECREASED GLUCOSE; Start 11/10/16 at 00:30 Glucagon (Glucagen) 1 mg Q15M PRN IM DECREASED GLUCOSE; Start 11/10/16 at 00:30 Glucose (Glutose) 15 gm Q15M PRN BUCCAL DECREASED GLUCOSE; Start 11/10/16 at 00 :30 Clonidine (Catapres) 0.1 mg Q6H PRN PO ELEVATED BLOOD PRESSURE Last administered on 11/10/16 02:03; Admin Dose 0.1 MG; Start 11/10/16 at 02:00 Promethazine HCl/ Codeine (Phenergan/ Codeine) 5 ml Q4H PRN PO COUGH Last administered on 11/10/16 02:04; Admin Dose 5 ML; Start 11/10/16 at 02:00 MARGARITO VIVAR MD Nov 10, 2016 10:21
--- NOTE | 2016-11-10 10:24 | DS ---
Date/Time of Note Date/Time of Note DATE: 11/10/16 TIME: 10:22 Discharge Summary Admission/Discharge Info Admit Date/Time Nov 09, 2016 at 22:29 Discharge Date/Time November 10, 2016 Discharge Diagnosis Acute bronchitis; cough induced chest pain; diabetes mellitus type 2; end-stage renal disease due to diabetes mellitus; hypertension; hyperlipidemia; history of 3 microfoci of papillary carcinoma thyroid thyroidectomy-cured Patient Condition: Good Procedures Rule out [facility] protocol Hx of Present Illness Kevin 51-year-old -Filipino woman with end-stage renal disease on CHD TIA week admitted with chest pain. As the patient tells a story she did not actually have her traditional chest pain. She does have a known history of coronary artery disease, however what had happened was that she was in her usual state of health and developed a cough. She was actually sent home from her new job on Friday, 08 November due to this cough. She was at dialysis on Friday, 09 November and inform the dialysis team about her cough. They felt that this was not a significant cardiac issue and sent her home. She tried reaching out to Dr. Thompson her coal and ash supervisor for assistance with above mentioned cough and received wreaked reached his covering physician. That physician advised her that since they did not know her well they would not be able to prescribe advise going to the emergency room. In the emergency room because of the pleuritic chest pain that only occurred with cough she was admitted as a rule out Hospital Course Patient was admitted via the emergency room as a precaution to rule out. She has had 3 negative troponins and after careful evaluation and a careful history is determined this is noncardiac. She is stable for discharge. I will give her a medication for her cough as well as an antibiotic for the bronchitis. She will follow-up in the office in 1 week and will continue with her routine dialysis. Home Meds Active Scripts Meclizine Hcl* (Antivert*) 12.5 Mg Tab, 25 MG PO Q6H Y for DIZZINESS, #20 TAB Prov:LYDIA HICKEY MD 07/18/16 Ondansetron (Ondansetron Odt) 4 Mg Tab.rapdis, 4 MG PO Q6H Y for NAUSEA AND/OR VOMITING, #10 TAB Prov:LYDIA HICKEY MD 07/18/16 Hydrocodone/Acetaminophen ([place] 10-325 Tablet) 1 Each Tablet, 1 TAB PO Q6H Y for PAIN, #7 TAB Prov:LYDIA HICKEY MD 07/18/16 Hydrocodone/Acetaminophen ([place] 10-325 Tablet) 1 Each Tablet, 1 TAB PO Q6H Y for PAIN, #20 TAB Prov:EVENS WANG 02/28/16 Hydromorphone Hcl* (Dilaudid*) 4 Mg Tablet, 4 MG PO Q6H Y for PAIN, #30 TAB Prov:KAYDEN VENTURA MD 10/04/15 Mesalamine* (Pentasa*) 250 Mg Capsule.sa, 1000 MG PO QID for 90 Days Prov:KAYDEN VENTURA MD 10/03/15 Pentoxifylline* (Pentoxifylline*) 400 Mg Tablet.sa, 400 MG PO TID for 90 Days, # 90 Prov:KAYDEN VENTURA MD 10/03/15 Linagliptin (TRADJENTA) 5 Mg Tablet, 5 MG PO DAILY for 90 Days, #90 TAB Prov:KAYDEN VENTURA MD 10/03/15 Sulfamethoxazole-Trimethoprim* (Bactrim* DS) 800-160 Mg Tab, 1 TAB PO BID for 7 Days, #14 TAB Prov:ARASELI MILLER MD 09/29/15 Reported Medications Sevelamer Carbonate* (Renvela*) 800 Mg Tablet, 0.8 GM PO WITH MEALS, TAB 11/09/16 Levothyroxine Sodium* (Synthroid*) 175 Mcg Tablet, 175 MCG PO BEFORE BREAKFAST, #30 TAB 11/09/16 Metoprolol Tartrate* (Lopressor*) 25 Mg Tab, 25 MG PO BID, #60 TAB 11/09/16 Metoprolol Tartrate* (Lopressor*) 25 Mg Tablet, 25 MG PO BID, #60 TAB 09/26/15 Levothyroxine Sodium* (Levothyroxine Sodium*) 175 Mcg Tablet, 175 MCG PO BEFORE BREAKFAST, #30 TAB 09/26/15 [Simvastatin] No Conflict Check 09/06/15 [Zantac] No Conflict Check 09/06/15 Primary Care Provider Tae Stephens MD Time spent on discharge: > 30 minutes Pending Labs Laboratory Tests Test 11/09/16 21:00 11/09/16 23:18 11/10/16 06:10 11/10/16 07:33 White Blood Count 5.910^3/ul (4.8-10.8) 4.010^3/ul (4.8-10.8) Red Blood Count 3.4410^6/ul (4.20-5.40) 2.9410^6/ul (4.20-5.40) Hemoglobin 10.1g/dl (12.0-16.0) 8.5g/dl (12.0-16.0) Hematocrit 31.7% (37.0-47.0) 27.0% (37.0-47.0) Mean Corpuscular Volume 92.2fl (82.0-101.0) 91.8fl (82.0-101.0) Mean Corpuscular Hemoglobin 29.4pg (29.0-33.0) 28.9pg (29.0-33.0) Mean Corpuscular Hemoglobin Concent 31.9g/dl (32.0-37.0) 31.5g/dl (32.0-37.0) Red Cell Distribution Width 13.7% (11.5-14.5) 13.7% (11.5-14.5) Platelet Count 58934^3/UL (140-415) 47732^3/UL (140-415) Mean Platelet Volume 12.5fl (7.4-10.4) 12.6fl (7.4-10.4) Neutrophils % 65.8% (39.0-77.0) 48.8% (39.0-77.0) Lymphocytes % 22.4% (15.0-51.0) 39.0% (15.0-51.0) Monocytes % 9.3% (0.0-11.0) 9.1% (0.0-11.0) Eosinophils % 2.0% (0.0-7.0) 2.3% (0.0-7.0) Basophils % 0.3% (0.0-2.0) 0.5% (0.0-2.0) Nucleated Red Blood Cells % 0.0/100WBC (0.0-0.0) 0.0/100WBC (0.0-0.0) Neutrophils # 3.910^3/ul (1.6-7.5) 1.910^3/ul (1.6-7.5) Lymphocytes # 1.310^3/ul (0.8-2.9) 1.610^3/ul (0.8-2.9) Monocytes # 0.610^3/ul (0.3-0.9) 0.410^3/ul (0.3-0.9) Eosinophils # 0.110^3/ul (0.0-0.5) 0.110^3/ul (0.0-0.5) Basophils # 0.010^3/ul (0.0-0.1) 0.010^3/ul (0.0-0.1) Nucleated Red Blood Cells # 0.010^3/ul (0.0-0.0) 0.010^3/ul (0.0-0.0) Sodium Level 140mmol/L (135-144) 138mmol/L (135-144) Potassium Level 4.7mmol/L (3.5-5.1) 4.9mmol/L (3.5-5.1) Chloride Level 96mmol/L (97-110) 100mmol/L (97-110) Carbon Dioxide Level 31mmol/L (21-31) 28mmol/L (21-31) Anion Gap 18 (8-16) 15 (8-16) Blood Urea Nitrogen 37mg/dl (7-20) 45mg/dl (7-20) Creatinine 7.97mg/dl (0.44-1.00) 8.49mg/dl (0.44-1.00) Glucose Level 119mg/dl (70-220) 218mg/dl (70-220) Calcium Level 10.3mg/dl (8.4-10.2) 9.6mg/dl (8.4-10.2) Total Bilirubin 0.3mg/dl (0.2-1.3) 0.1mg/dl (0.2-1.3) Direct Bilirubin 0.00mg/dl (0.00-0.20) 0.00mg/dl (0.00-0.20) Indirect Bilirubin 0.3mg/dl (0-1.1) 0.1mg/dl (0-1.1) Aspartate Amino Transf (AST/SGOT) 14IU/L (15-46) 10IU/L (15-46) Alanine Aminotransferase (ALT/SGPT) 22IU/L (13-69) 21IU/L (13-69) Alkaline Phosphatase 253IU/L (42-121) 193IU/L (42-121) Troponin I < 0.012ng/ml (0.00-0.12) < 0.012ng/ml (0.00-0.12) < 0.012ng/ml (0.00-0.12) Total Protein 8.2g/dl (6.1-8.1) 6.2g/dl (6.1-8.1) Albumin 4.3g/dl (3.3-4.9) 3.3g/dl (3.3-4.9) Globulin 3.90g/dl (1.3-3.2) 2.90g/dl (1.3-3.2) Albumin/Globulin Ratio 1.10 1.13 Lipase 65U/L (23-300) Hemoglobin A1c 7.1% (0-5.9) Creatine Kinase 71IU/L (23-200) 61IU/L (23-200) Creatine Kinase Index 0.9 1.1 Creatinine Kinase MB (Mass) 0.66ng/ml (0.0-2.4) 0.65ng/ml (0.0-2.4) Bedside Glucose 201mg/dL (70-220) Test 11/10/16 09:38 Bedside Glucose 155mg/dL (70-220) MARGARITO VIVAR MD Nov 10, 2016 10:24
--- NOTE | 2016-11-10 10:24 | PDOCDIS ---
Discharge Instructions DIAGNOSIS Discharge Diagnosis Acute bronchitis; cough induced chest pain; diabetes mellitus type 2; end-stage renal disease due to diabetes mellitus; hypertension; hyperlipidemia; history of 3 microfoci of papillary carcinoma thyroid thyroidectomy-cured CONDITION Patient Condition: Good HOME CARE INSTRUCTIONS: Special Diet: renal diet ACTIVITY: Activity Restrictions: No Restrictions FOLLOW UP/APPOINTMENTS Follow-up Plan Routine dialysis. Follow-up with Dr. Mario in 1-2 weeks SCHOOL/WORK RELEASE May return to School/Work with: No Restrictions MARGARITO VIVAR MD Nov 10, 2016 10:24
[2016-11-10] MEDS ORDERED: predniSONE 10 MG TAB PO ONE (10:30)
[2016-11-10] MEDS ORDERED: AZITHROMYCIN 250 MG TAB PO ONE (10:30)
[2016-11-10] MEDS ORDERED: SEVELAMER 800 MG TAB PO SCH (11:50)
--- NOTE | 2016-11-10 12:04 | CONS ---
Date/Time of Note Date/Time of Note DATE: 11/10/16 TIME: 12:01 Assessment/Plan Assessment/Plan Chief Complaint/Hosp Course 1. ESRD 2. Hypertension, uncontrolled Problems: Additional Assessment/Plan 1. pt being d/c 2. Pt had HD yesterday 3. Pt is scheduled to have HD tomorrow Consultation Date/Type/Reason Admit Date/Time Nov 09, 2016 at 22:29 Initial Consult Date 11/09/2016 Type of Consultation: nephrology Reason for Consultation Dr Thompson 24 HR Interval Summary Constitutional: improved, no complaints Exam/Review of Systems Vital Signs Vitals Vital Signs Date Time Temp Pulse Resp B/P Pulse Ox O2 Delivery O2 Flow Rate FiO2 11/10/16 11:30 151/74 11/10/16 11:15 98.9 85 17 91 11/09/16 23:00 Room Air Intake and Output 11/09/16 11/09/16 11/10/16 14:59 22:59 06:59 Intake Total 200 ml Balance 200 ml Exam Constitutional: alert Eyes: nl conjunctiva ENMT: nl external ears & nose Neck: supple Respiratory: clear to auscultation Cardiovascular: regular rate and rhythm Musculoskeletal: other (L Upperarm AV fistula) Neurological: nl mental status, nl speech, nl strength Results Result Diagram: 11/10/16 0610 11/10/16 0610 Results 24 hrs Laboratory Tests Test 11/09/16 21:00 11/09/16 23:18 11/10/16 06:10 11/10/16 07:33 White Blood Count 5.9 # 4.0 #L Red Blood Count 3.44 L 2.94 L Hemoglobin 10.1 L 8.5 L Hematocrit 31.7 L 27.0 L Mean Corpuscular Volume 92.2 91.8 Mean Corpuscular Hemoglobin 29.4 28.9 L Mean Corpuscular Hemoglobin Concent 31.9 L 31.5 L Red Cell Distribution Width 13.7 13.7 Platelet Count 136 L 110 L Mean Platelet Volume 12.5 H 12.6 H Neutrophils % 65.8 48.8 Lymphocytes % 22.4 39.0 Monocytes % 9.3 9.1 Eosinophils % 2.0 2.3 Basophils % 0.3 0.5 Nucleated Red Blood Cells % 0.0 0.0 Neutrophils # 3.9 1.9 Lymphocytes # 1.3 1.6 Monocytes # 0.6 0.4 Eosinophils # 0.1 0.1 Basophils # 0.0 0.0 Nucleated Red Blood Cells # 0.0 0.0 Sodium Level 140 138 Potassium Level 4.7 4.9 Chloride Level 96 L 100 Carbon Dioxide Level 31 28 Anion Gap 18 H 15 Blood Urea Nitrogen 37 H 45 H Creatinine 7.97 H 8.49 H Glucose Level 119 218 Calcium Level 10.3 H 9.6 Total Bilirubin 0.3 0.1 L Direct Bilirubin 0.00 0.00 Indirect Bilirubin 0.3 0.1 Aspartate Amino Transf (AST/SGOT) 14 L 10 L Alanine Aminotransferase (ALT/SGPT) 22 21 Alkaline Phosphatase 253 H 193 H Troponin I < 0.012 < 0.012 < 0.012 Total Protein 8.2 H 6.2 # Albumin 4.3 3.3 # Globulin 3.90 H 2.90 Albumin/Globulin Ratio 1.10 1.13 Lipase 65 Hemoglobin A1c 7.1 H Creatine Kinase 71 61 Creatine Kinase Index 0.9 1.1 Creatinine Kinase MB (Mass) 0.66 0.65 Bedside Glucose 201 Test 11/10/16 09:38 Bedside Glucose 155 Medications Medications Current Medications Lorazepam (Ativan) 0.5 mg Q8H PRN PO ANXIETY; Start 11/09/16 at 23:00 Ondansetron HCl (Zofran Tab) 4 mg Q6H PRN PO NAUSEA AND/OR VOMITING; Start at 23:00 Aspirin (Aspirin) 81 mg DAILY PO Last administered on 11/10/16 08:31; Admin Dose 81 MG; Start 11/10/16 at 09:00 Acetaminophen (Tylenol Supp) 650 mg Q6H PRN OR PAIN LEVEL 1-3 OR FEVER; Start 11/09/16 at 23:00 Acetaminophen/ Hydrocodone Bitart ([place] (5/325)) 1 tab Q6H PRN PO PAIN LEVEL 4 -6; Start 11/09/16 at 23:00 Docusate Sodium (Colace) 100 mg Q12H PRN PO CONSTIPATION; Start 11/09/16 at 23: 00 Famotidine (Pepcid) 20 mg DAILY PO ; Start 11/10/16 at 09:00 Heparin Sodium (Porcine) (Heparin (5000 Units/0.5 ml)) 5,000 unit Q8 SC Last administered on 11/10/16 06:21; Admin Dose 5,000 UNIT; Start 11/10/16 at 06:00 Calcium Carbonate (Tums) 500 mg QID PO Last administered on 11/10/16 02:03; Admin Dose 500 MG; Start 11/09/16 at 23:00 Acetaminophen/ Hydrocodone Bitart ([place] (10/325)) 1 tab Q6H PRN PO PAIN; Start 11/09/16 at 23:00 Acetaminophen/ Hydrocodone Bitart ([place] (10/325)) 1 tab Q6H PRN PO PAIN; Start 11/09/16 at 23:00 Linagliptin (Tradjenta) 5 mg DAILY PO ; Start 11/10/16 at 09:00 Meclizine HCl (Antivert) 25 mg Q6H PRN PO DIZZINESS; Start 11/09/16 at 23:00 Mesalamine (Pentasa) 1,000 mg QID PO ; Start 11/10/16 at 09:00 Metoprolol Tartrate (Lopressor) 25 mg BID PO Last administered on 11/10/16 08: 31; Admin Dose 25 MG; Start 11/09/16 at 23:00 Ondansetron HCl (Zofran Odt) 4 mg Q6H PRN ODT NAUSEA AND/OR VOMITING; Start at 23:00 Pentoxifylline (Trental) 400 mg TID PO ; Start 11/10/16 at 09:00 Trimethoprim/ Sulfamethoxazole (Bactrim (Ds)) 1 tab BID PO ; Start 11/10/16 at 09:00 Atorvastatin Calcium (Lipitor) 40 mg QHS PO ; Start 11/10/16 at 21:00 Diagnostic Test (Pha) (Accu-Chek) 1 ea 02 XX ; Start 11/10/16 at 02:00 Miscellaneous Information 1 ea NOTE XX ; Start 11/10/16 at 00:30 Glucose (Glutose) 15 gm Q15M PRN PO DECREASED GLUCOSE; Start 11/10/16 at 00:30 Glucose (Glutose) 22.5 gm Q15M PRN PO DECREASED GLUCOSE; Start 11/10/16 at 00: 30 Dextrose (D50w Syringe) 25 ml Q15M PRN IV DECREASED GLUCOSE; Start 11/10/16 at 00:30 Dextrose (D50w Syringe) 50 ml Q15M PRN IV DECREASED GLUCOSE; Start 11/10/16 at 00:30 Glucagon (Glucagen) 1 mg Q15M PRN IM DECREASED GLUCOSE; Start 11/10/16 at 00:30 Glucose (Glutose) 15 gm Q15M PRN BUCCAL DECREASED GLUCOSE; Start 11/10/16 at 00 :30 Clonidine (Catapres) 0.1 mg Q6H PRN PO ELEVATED BLOOD PRESSURE Last administered on 11/10/16 02:03; Admin Dose 0.1 MG; Start 11/10/16 at 02:00 Promethazine HCl/ Codeine (Phenergan/ Codeine) 5 ml Q4H PRN PO COUGH Last administered on 11/10/16 02:04; Admin Dose 5 ML; Start 11/10/16 at 02:00 SHERWIN SINGLETON Nov 10, 2016 12:04
[2016-11-10] MEDS ORDERED: ATORVASTATIN 40 MG TAB PO SCH (21:00)
== END 2016-11-10 11:50 | disposition home or self-care (01) ==
LOC: E/R 20:14 → TEL 22:29 → INTOOBSV 22:29
PROVIDERS: ADMIT Internal Medicine; ATTEND Internal Medicine
DX: J20.9 Acute bronchitis, unspecified (principal); Z86.010 Personal history of colon polyps; Z85.850 Personal history of malignant neoplasm of thyroid; E11.22 Type 2 diabetes mellitus with diabetic chronic kidney disease; I12.0 Hypertensive chronic kidney disease with stage 5 chronic kidney disease or end stage renal disease; N18.6 End stage renal disease; Z99.2 Dependence on renal dialysis; I25.10 Atherosclerotic heart disease of native coronary artery without angina pectoris; Z95.5 Presence of coronary angioplasty implant and graft; R05 Cough; K44.9 Diaphragmatic hernia without obstruction or gangrene; K21.9 Gastro-esophageal reflux disease without esophagitis
CPT/HCPCS: 36415; 71010; 80053; 82550; 82553; 82962; 83036; 83690; 84484; 85025; 87040; 87081; 93005; 96374; 99285; G0378; J1644; J1815; J1885; J7512

== ENCOUNTER 2016-11-20 11:12 | Emergency (ER) | payer MEDICARE, OTHER ==
[~2016-11-20] VITALS: Ht 170.2 cm; Wt 73.0 kg
[~2016-11-20 11:12] MED LIST changes: -BACTDS PO; +SEVE800T7 PO
[2016-11-20 11:15] VITALS: Ht 170.2 cm; Wt 73.0 kg
[2016-11-20] MEDS ORDERED: ALBU8.5H3 INH (13:46)
[2016-11-20] MEDS ORDERED: CINA60TA PO (13:47)
[2016-11-20] MEDS ORDERED: LEVO200T6 PO (13:48)
[2016-11-20] MEDS ORDERED: CLOP75TA27 PO (13:48)
[2016-11-20] MEDS ORDERED: ISOS30TA5 PO (13:49)
[2016-11-20 13:51] VITALS: BP 142/75; PULSE 72; RESP 16; TEMP 98.7
[2016-11-20] MEDS ORDERED: ATOR20TA38 PO (13:51)
[2016-11-20] MEDS ORDERED: AMLO5TAB4 PO (13:51)
[2016-11-20] MEDS ORDERED: SIMV40TA2 PO (13:52)
--- NOTE | 2016-11-20 19:12 | ERD ---
ER Documentation Chief Complaint Date/Time DATE: 11/20/16 TIME: 19:09 Chief Complaint Head pain, vomiting, cough x 1 day HPI 51-year-old woman presents with continued dry cough. She states she has had cough for about 1 week although she was seen and evaluated for this a couple weeks ago, at that time her cough was associated with chest pain and she was admitted and worked up as an inpatient. Patient denies vomiting or headache at this time and states she is here simply for the cough. She denies shortness of breath or wheezing, no calf or leg swelling. She denies pain. ROS All systems reviewed and are negative except as per history of present illness. Medications Home Meds Active Scripts Albuterol Sulfate* (Proair HFA*) 8.5 Gm Hfa.aer.ad, 2 PUFF INH Q6H Y for WHEEZING AND SOB, #1 INHALER Prov:MARCELLE LAU MD 11/20/16 Reported Medications Simvastatin* (Zocor*) 40 Mg Tablet, 40 MG PO QHS, #30 TAB 11/20/16 Amlodipine Besylate* (Norvasc*) 5 Mg Tablet, 5 MG PO DAILY, TAB 11/20/16 Atorvastatin Calcium* (Atorvastatin Calcium*) 20 Mg Tablet, 20 MG PO QHS, #30 TAB 11/20/16 Isosorbide Mononitrate* (Isosorbide Mononitrate*) 30 Mg Tab.er.24h, 30 MG PO DAILY, TAB 11/20/16 Clopidogrel Bisulfate (Clopidogrel) 75 Mg Tablet, 75 MG PO DAILY, #30 TAB 11/20/16 Levothyroxine Sodium* (Levothyroxine Sodium*) 200 Mcg Tablet, 200 MCG PO BEFORE BREAKFAST, #30 TAB 11/20/16 Cinacalcet* (Sensipar*) 60 Mg Tablet, 60 MG PO DAILY, TAB 11/20/16 Metoprolol Tartrate* (Lopressor*) 25 Mg Tablet, 25 MG PO BID, #60 TAB 09/26/15 Discontinued Reported Medications Sevelamer Carbonate* (Renvela*) 800 Mg Tablet, 0.8 GM PO WITH MEALS, TAB 11/09/16 Levothyroxine Sodium* (Levothyroxine Sodium*) 175 Mcg Tablet, 175 MCG PO BEFORE BREAKFAST, #30 TAB 09/26/15 [Simvastatin] No Conflict Check 09/06/15 [Zantac] No Conflict Check 09/06/15 Discontinued Scripts Meclizine Hcl* (Antivert*) 12.5 Mg Tab, 25 MG PO Q6H Y for DIZZINESS, #20 TAB Prov:LYDIA HICKEY MD 07/18/16 Ondansetron (Ondansetron Odt) 4 Mg Tab.rapdis, 4 MG PO Q6H Y for NAUSEA AND/OR VOMITING, #10 TAB Prov:LYDIA HICKEY MD 07/18/16 Hydrocodone/Acetaminophen ([place] 10-325 Tablet) 1 Each Tablet, 1 TAB PO Q6H Y for PAIN, #7 TAB Prov:LYDIA HICKEY MD 07/18/16 Hydrocodone/Acetaminophen ([place] 10-325 Tablet) 1 Each Tablet, 1 TAB PO Q6H Y for PAIN, #20 TAB Prov:EVENS WANG 02/28/16 Hydromorphone Hcl* (Dilaudid*) 4 Mg Tablet, 4 MG PO Q6H Y for PAIN, #30 TAB Prov:KAYDEN VENTURA MD 10/04/15 Mesalamine* (Pentasa*) 250 Mg Capsule.sa, 1000 MG PO QID for 90 Days Prov:KAYDEN VENTURA MD 10/03/15 Pentoxifylline* (Pentoxifylline*) 400 Mg Tablet.sa, 400 MG PO TID for 90 Days, # 90 Prov:KAYDEN VENTURA MD 10/03/15 Linagliptin (TRADJENTA) 5 Mg Tablet, 5 MG PO DAILY for 90 Days, #90 TAB Prov:KAYDEN VENTURA MD 10/03/15 Allergies Allergies: Coded Allergies: No Known Drug Allergies (Verified Allergy, Unknown, 11/20/16) PMhx/Soc CAD, dyslipidemia, hypertension, hypothyroidism History of Surgery: Yes (STENT PLACEMENT) Anesthesia Reaction: No Hx Neurological Disorder: Yes (STROKE WITH RIGHT SIDE WEAKNESS) Hx Respiratory Disorders: No Hx Cardiac Disorders: Yes (HTN, CAD) Hx Psychiatric Problems: No Hx Miscellaneous Medical Probl: Yes (PAPILLARY THYROID CARCINOMA) Hx Alcohol Use: No Hx Substance Use: No Hx Tobacco Use: No Smoking Status: Never smoker FmHx Family History: No diabetes Physical Exam Vitals Vital Signs Date Time Temp Pulse Resp B/P Pulse Ox O2 Delivery O2 Flow Rate FiO2 11/20/16 13:51 98.7 72 16 142/75 99 Room Air 11/20/16 11:15 99.4 98 20 191/89 100 Physical Exam GENERAL: Well-developed, well-nourished, well-hydrated, in no apparent distress , looks nontoxic in appearance HEENT: Moist mucous membranes, pink conjunctiva, no cervical spine tenderness or step-off deformities, no goiter, no jaundice or icterus, extraocular movements intact without pain. No submandibular induration, and no pharyngeal erythema NEURO: Alert and oriented 3, cranial nerves II through XII intact bilaterally, pupils equal round reactive to light, no focal deficits or facial asymmetry, sensation intact distally Strength 5/5 in upper and lower extremities bilaterally CARDIAC: Regular rate and rhythm, no murmurs rubs or gallops LUNGS: Clear bilaterally no wheezing crackles or stridor ABDOMEN: Soft nontender, no guarding, no rigidity, no rebound, no psoas sign no obturator sign. Normoactive bowel sounds SKIN: Warm and dry to touch, no abrasions, contusions, or hematomas, no lacerations, no ecchymosis, no target lesions, and without ulcers EXTREMITIES: No clubbing cyanosis or edema, calves are bilaterally symmetrical, no Homans sign, no popliteal cord sign. Distal pulses equal and bilateral PSYCH: Normal affect without agitation or irritability Procedures/MDM Patient's vital signs were normal, examination was within normal limits, and she appears well. I spoke to her about multiple different etiologies for chronic and subacute cough and recommended she follow-up with her PMD. I also agreed to provide her a prescription for albuterol as needed cough. It seems she has recently used Tessalon Perles without improvement. Differential diagnoses considered, included but not limited to acute coronary syndrome, pulmonary embolism, aortic dissection, abdominal aortic aneurysm, sepsis, stroke, meningitis, encephalitis, pneumonia, appendicitis, cholecystitis , bowel obstruction, pyelonephritis, nephrolithiasis, cystitis, as well as metabolic, hematologic, and electrolyte abnormalities. As well as abscess, cellulitis, fractures, and dislocations. Patient feels much better at this time, and vital signs are normal, symptoms have improved. I did give strict instructions to return to the ED if symptoms continue or worsen, patient will otherwise follow-up with primary care physician. Patient understood instructions and agreed to plan. Disclaimer: Inadvertent spelling and grammatical errors are likely due to EHR/ dictation software use and do not reflect on the overall quality of patient care. Also, please note that the electronic time recorded on this note does not necessarily reflect the actual time of the patient encounter. Departure Diagnosis: Primary Impression: Cough Condition: Good Patient Instructions: Cough, Chronic, Uncertain Cause, (Adult) MARCELLE LAU MD Nov 20, 2016 19:12
== END 2016-11-20 13:55 | disposition home or self-care (01) ==
LOC: E/R 11:12
DX: R05 Cough (principal); I10 Essential (primary) hypertension; I25.10 Atherosclerotic heart disease of native coronary artery without angina pectoris; E03.9 Hypothyroidism, unspecified; Z79.01 Long term (current) use of anticoagulants; Z98.61 Coronary angioplasty status
CPT/HCPCS: 99283

== ENCOUNTER → 2017-04-11 | Outpatient (CLI) | END | disposition home or self-care (01) ==

== ENCOUNTER 2017-08-14 07:50 | Observation (INO) | END 2017-08-17 13:22 | disposition home or self-care (01) ==

== ENCOUNTER 2018-01-26 21:56 | Inpatient (IN) | payer MEDICARE, OTHER ==
[~2018-01-26] VITALS: Ht 172.7 cm; Wt 76.6 kg
[~2018-01-26 21:56] MED LIST changes: +ALBU8.5H8 INH; +AMLO5TAB4 PO; +ATOR20TA38 PO; +BIOT1CAP3 PO; +BIOT5TAB PO; +CINA60TA PO; +CLOP75TA27 PO; +HYDR-3980 PO; -HYDR-902 PO; -HYDR4TAB51 PO; +ISOS30TA67 PO; -LEVO175T6 PO; +LEVO200T6 PO; -LINA5TAB PO; +LOPE1LIQ63 PO; -MECL12.574 PO; -MES250 PO; -ONDA4TAB14 PO; -PENT400T2 PO; -SEVE800T7 PO; -SIMVASTATIN; -ZANTAC
[2018-01-27] VITALS (24 sets, daily range): BP systolic 127–158; BP diastolic 64–97; PULSE 80–98; RESP 9–19; Ht 172.7 cm; Wt 76.6 kg
[2018-01-27] MEDS ORDERED: NA POLYST SULFON 15 GM/60 ML BTL PO STA (03:06)
[2018-01-27] MEDS ORDERED: NA BICARBONATE 8.4% 50 ML SYG IV STA (03:06)
[2018-01-27] MEDS ORDERED: INSULIN REGULAR, HUMAN 100 UNIT/1 ML 3ML VIAL IVP STA (03:06)
[2018-01-27] MEDS ORDERED: CA CHLORIDE 10% 10 ML SYRINGE IV STA (03:06)
[2018-01-27] MEDS ORDERED: DEXTROSE 50% 50 ML SYRINGE IV PRN (03:30)
[2018-01-27] MEDS ORDERED: ONDANSETRON 4 MG INJ IV STA (04:15)
[2018-01-27] MEDS ORDERED: morphine 4 MG/ML VIAL IV STA (04:15)
--- NOTE | 2018-01-27 04:37 | ERD ---
ER Documentation Chief Complaint Chief Complaint BIB SELF, CC: MISSED 2 DIALYSIS SESSIONS THIS WEEK, JACK. LEG SWEL HPI This is a 52-year-old female end-stage renal disease patient who comes in with points of bilateral lower extremity swelling chest pain or shortness of breath over the past few days. Patient has missed her last 2 dialysis sessions. Denies any fevers or chills. Chest pain is mild to moderate intensity with no exacerbating alleviating factors. Denies any other current complaints. ROS All systems reviewed and are negative except as per history of present illness. Medications Home Meds Active Scripts Albuterol Sulfate* (Proair HFA*) 8.5 Gm Hfa.aer.ad, 2 PUFF INH Q6H PRN for WHEEZING AND SOB, #1 INHALER Prov:MARCELLE LAU MD 11/20/16 Reported Medications Hydrocodone/Acetaminophen ([place] 10-325 Tablet) 1 Each Tablet, 1 EACH PO, TAB 08/14/17 Loperamide Hcl* (Loperamide Hcl*) 1 Mg/5 Ml Liquid, 2 MG PO PRN for DIARRHEA, ML MAX 16 mg/day 08/14/17 Biotin (Biotin) 5 Mg Tablet, 5 MG PO, TAB 08/14/17 Biotin (BIOTIN) 1 Mg Capsule, 1 MG PO, CAP 08/14/17 Amlodipine Besylate* (Norvasc*) 5 Mg Tablet, 5 MG PO DAILY, TAB 11/20/16 Atorvastatin Calcium* (Atorvastatin Calcium*) 20 Mg Tablet, 20 MG PO QHS, #30 TAB 11/20/16 Isosorbide Mononitrate* (Isosorbide Mononitrate*) 30 Mg Tab.er.24h, 30 MG PO DAILY, TAB 11/20/16 Clopidogrel Bisulfate (Clopidogrel) 75 Mg Tablet, 75 MG PO DAILY, #30 TAB 11/20/16 Levothyroxine Sodium* (Levothyroxine Sodium*) 200 Mcg Tablet, 200 MCG PO BEFORE BREAKFAST, #30 TAB 11/20/16 Cinacalcet* (Sensipar*) 60 Mg Tablet, 60 MG PO DAILY, TAB 11/20/16 Metoprolol Tartrate* (Lopressor*) 25 Mg Tablet, 25 MG PO BID, #60 TAB 09/26/15 Allergies Allergies: Coded Allergies: No Known Drug Allergies (Verified Allergy, Unknown, 11/20/16) PMhx/Soc History of Surgery: Yes Anesthesia Reaction: No Hx Neurological Disorder: No Hx Respiratory Disorders: No Hx Cardiac Disorders: Yes Hx Psychiatric Problems: No Hx Miscellaneous Medical Probl: Yes Hx Substance Use: No Hx Tobacco Use: No Physical Exam Vitals Vital Signs Date Temp Pulse Resp B/P (MAP) Pulse Ox O2 O2 Flow FiO2 Time Delivery Rate 01/27/18 84 16 137/81 100 Room Air 02:58 (99) 01/26/18 97.9 93 19 167/84 100 22:00 (111) Physical Exam Const: No acute distress Head: Atraumatic Eyes: Normal Conjunctiva ENT: Normal External Ears, Nose and Mouth. Neck: Full range of motion. No meningismus. Resp: Clear to auscultation bilaterally Cardio: Regular rate and rhythm, no murmurs Abd: Soft, non tender, non distended. Normal bowel sounds Skin: No petechiae or rashes Back: No midline or flank tenderness Ext: No cyanosis, or edema Neur: Awake and alert Psych: Normal Mood and Affect Result Diagram: 01/27/18 0203 01/27/18 0203 Results 24 hrs Laboratory Tests Test 01/27/18 02:03 01/27/18 03:36 01/27/18 04:10 White Blood Count 5.4 10^3/ul Red Blood Count 3.86 10^6/ul Hemoglobin 10.9 g/dl Hematocrit 35.0 % Mean Corpuscular Volume 90.7 fl Mean Corpuscular Hemoglobin 28.2 pg Mean Corpuscular 31.1 g/dl Hemoglobin Concent Red Cell Distribution Width 16.0 % Platelet Count 176 10^3/UL Mean Platelet Volume 11.7 fl Immature Granulocytes % 0.200 % Neutrophils % 61.6 % Lymphocytes % 23.6 % Monocytes % 10.7 % Eosinophils % 3.5 % Basophils % 0.4 % Nucleated Red Blood Cells % 0.0 /100WBC Immature Granulocytes # 0.010 10^3/ul Neutrophils # 3.3 10^3/ul Lymphocytes # 1.3 10^3/ul Monocytes # 0.6 10^3/ul Eosinophils # 0.2 10^3/ul Basophils # 0.0 10^3/ul Nucleated Red Blood Cells # 0.0 10^3/ul Sodium Level 138 mmol/L Potassium Level 7.4 mmol/L Chloride Level 93 mmol/L Carbon Dioxide Level 17 mmol/L Anion Gap 28 Blood Urea Nitrogen 128 mg/dl Creatinine 17.74 mg/dl Est Glomerular Filtrat 3 mL/min Rate mL/min Glucose Level 112 mg/dl Calcium Level 9.9 mg/dl Total Bilirubin 0.1 mg/dl Direct Bilirubin 0.00 mg/dl Indirect Bilirubin 0.1 mg/dl Aspartate Amino 22 IU/L Transf (AST/SGOT) Alanine 21 IU/L Aminotransferase (ALT/SGPT) Alkaline Phosphatase 190 IU/L Troponin I < 0.012 ng/ml B-Type Natriuretic Peptide 87699 PG/ML Total Protein 7.6 g/dl Albumin 4.5 g/dl Globulin 3.10 g/dl Albumin/Globulin Ratio 1.45 Bedside Glucose 100 mg/dL 142 mg/dL Current Medications Medications Dose Sig/Cheng Start Time Status Last (Trade) Ordered Route PRN Stop Time Admin Dose Reason Admin Sodium 30 gm ONCE STAT 01/27/18 DC Polystyrene PO 03:06 Sulfonate 01/27/18 (Kayexalate) 03:19 Sodium 50 ml ONCE STAT 01/27/18 DC 01/27/18 Bicarbonate IV 03:06 03:38 (Na Bicarb 01/27/18 8.4% Syg) 03:13 Calcium 1,000 mg ONCE STAT 01/27/18 DC 01/27/18 Chloride IV 03:06 03:38 (Ca Chloride 01/27/18 10% Syg) 03:13 Insulin 10 unit ONCE STAT 01/27/18 DC 01/27/18 Human IVP 03:06 03:39 Regular 01/27/18 (Humulin R) 03:19 Dextrose ONCE PRN 01/27/18 01/27/18 (D50w IV DECREASED 03:30 03:38 Syringe) GLUCOSE 01/27/18 07:00 Morphine 4 mg ONCE STAT 01/27/18 DC Sulfate IV 04:15 (morphine) 01/27/18 04:18 Ondansetron 4 mg ONCE STAT 01/27/18 DC HCl (Zofran IV 04:15 Inj) 01/27/18 04:18 Procedures/MDM EKG: Rate/Rhythm: [Normal Sinus Rhythm] QRS, ST, T-waves: [No changes consistent w/ acute ischemia] Impression: [No evidence of ischemia or arrhythmia] Chest X-ray 1V Interpreted by me: Soft Tissue: No acute abnormalities Bones: No acute abnormalities Mediastinum/Cardiac Silhouette/Lungs: Increased interstitial fluid markings. Impression: CHF Emergency department course: Patient was seen and evaluated. She was found to have severely elevated potassium. Started on hyperkalemia protocol with calcium, bicarbonate, insulin, glucose, Kayexalate. At this point on-call for primary care physician was called. Dr. Schaefer, except patient to his service. Told medical consult was put in for Dr. Krueger for nephrology Patient's heart failure symptoms is concerning for acute decompensation and will require inpatient workup and monitoring. Further w/u for ischemia, arrhythmia, PE or dissection will be deferred to the inpatient team. Accepting Care Team: Current data and ongoing care discussed. Time: 2:30 AM Primary Provider: Dr. Schaefer Consulting: Dr. Krueger Outstanding Data: none Critical Care: Time: 35 minutes, independent of any separately billable procedural time Treatments/Evaluations: Close monitoring and treatment of unstable vital signs, cardiorespiratory, and neurologic status, while maintaining tight balance of fluid, respiratory, and cardiac interventions. Departure Diagnosis: Primary Impression: Hyperkalemia Additional Impression: Fluid overload Hypervolemia type: unspecified Qualified Codes: E87.70 - Fluid overload, unspecified Condition: Critical EVENS WANG Jan 27, 2018 04:37
[2018-01-27] MEDS ORDERED: TEMA30CA PO (05:34)
[2018-01-27] MEDS ORDERED: RANO500T2 PO (05:34)
--- NOTE | 2018-01-27 12:00 | NUR ---
RECEIVE PT FROM ER. PT IS AWAKE AND ORIENTED X 4. PT IS TELE STATUS AND AWAITING DIALYSIS FOR ELEVATED POTASSIUM AT 7.4 AND BUN AND CREATINE. PT'S V.S STABLE ONGOING CARE WILL CONTINUE.
--- NOTE | 2018-01-27 12:57 | NUR ---
DR HURST CALLED TO RECEIVE ADMISSION ORDERS. ORDERS GIVEN WILL CARRY OUT ALEXYS
[2018-01-27] MEDS ORDERED: LIDOCAINE 1% (MPF) 5 ML VIAL SC ONE (13:00)
--- NOTE | 2018-01-27 13:45 | CONS ---
Date/Time of Note Date/Time of Note DATE: 01/27/18 TIME: 13:41 Assessment/Plan Assessment/Plan Additional Assessment/Plan Shortness of breath likely secondary to volume overload and missed hemodialysis End-stage renal disease on hemodialysis Hyperkalemia CAD with history of PCI Hypertension Diabetes Dyslipidemia -Patient admits to missing multiple hemodialysis sessions now with volume overload and hyperkalemia. She is awaiting hemodialysis. Restart dual antiplatelet therapy, statin therapy, beta-mariaelena as heart rate and blood pressure permits. She is plan for outpatient PCI given known history of obstructive coronary artery disease. Consultation Date/Type/Reason Admit Date/Time Jan 27, 2018 at 04:03 Type of Consult cv Reason for Consultation Shortness of breath Hx of Present Illness This is a 52-year-old female with past medical history of end-stage renal disease on hemodialysis, CAD with history of PCI, hypertension, dyslipidemia, diabetes who presents with progressive shortness of breath after missing multiple hemodialysis sessions. The patient thinks her last session was mid last week. She does feel increased lower examinee edema and increased shortness of breath. Symptoms have been progressing. She does complain of chest discomfort with coughing. She denies exertional chest discomfort but she has been more tired. 12 point review of systems was performed with all pertinent positives and negatives mentioned above and all else is negative Past Medical History Medical History: coronary artery disease, diabetes, high cholesterol, hypertension, renal disease Past Surgical History Past Surgical Hx: angioplasty, other Family History Significant Family History: no pertinent family hx Social History Smoking Status: Never smoker Exam/Review of Systems Vital Signs Vitals Vital Signs Date Temp Pulse Resp B/P (MAP) Pulse Ox O2 O2 Flow FiO2 Time Delivery Rate 01/27/18 88 12:00 01/27/18 97.8 16 110/76 99 Room Air 11:28 (87) Exam No apparent distress, able to speak in complete sentences Constitutional: alert, oriented Head: normocephalic Respiratory: other (Coarse breath sounds bilaterally, no wheezing) Cardiovascular: regular rate and rhythm, other (S1-S2 heard) Gastrointestinal: soft, non-tender, bowel sounds Extremities: edema Medications Medications Current Medications Acetaminophen (Tylenol Tab) 650 mg Q6H PRN PO MILD PAIN(1-3)OR ELEVATED TEMP; Start 01/27/18 at 13:30 Amlodipine Besylate (Norvasc) 5 mg DAILY PO ; Start 01/27/18 at 21:00 Atorvastatin Calcium (Lipitor) 20 mg HS PO ; Start 01/27/18 at 21:00 Clopidogrel Bisulfate (plaVIX) 75 mg DAILY PO ; Start 01/27/18 at 21:00 Acetaminophen/ Hydrocodone Bitart ([place] (10/325)) 2 tab Q6H PRN PO MODERATE PAIN LEVEL 4-6; Start 01/27/18 at 13:30 Isosorbide Mononitrate (Imdur) 30 mg DAILY PO ; Start 01/28/18 at 21:00 Famotidine (Pepcid) 10 mg DAILY PO ; Start 01/27/18 at 21:00 Diagnostic Test (Pha) (Accu-Chek) 1 ea 02 XX ; Start 01/28/18 at 02:00 Insulin Aspart (Novolog Insulin Pen) NOVOLOG *MILD* ALGORITHM WITH MEALS BEDTIME SC ; Start 01/27/18 at 17:35 Metoprolol Tartrate (Lopressor) 25 mg BID PO ; Start 01/27/18 at 21:00 Levothyroxine Sodium (Synthroid) 200 mcg DAILY@06 PO ; Start 01/28/18 at 06:00 Ranolazine (Ranexa) 500 mg Q12 PO ; Start 01/27/18 at 21:00 Zolpidem Tartrate (Ambien) 5 mg HS MAY REPEAT X 1 PRN PO INSOMNIA; Start 01/27/18 at 13:30 Results Result Diagram: 01/27/18 0203 01/27/18 0203 Results 24 hrs Laboratory Tests Test 01/27/18 02:03 01/27/18 03:36 01/27/18 04:10 01/27/18 07:05 White Blood 5.4 Count Red Blood Count 3.86 L Hemoglobin 10.9 L Hematocrit 35.0 L Mean Corpuscular 90.7 Volume Mean Corpuscular 28.2 L Hemoglobin Mean Corpuscular 31.1 L Hemoglobin Nuha nt Red Cell 16.0 H Distribution Width Platelet Count 176 # Mean Platelet 11.7 H Volume Immature 0.200 Granulocytes % Neutrophils % 61.6 Lymphocytes % 23.6 Monocytes % 10.7 Eosinophils % 3.5 Basophils % 0.4 Nucleated Red 0.0 Blood Cells % Immature 0.010 Granulocytes # Neutrophils # 3.3 Lymphocytes # 1.3 Monocytes # 0.6 Eosinophils # 0.2 Basophils # 0.0 Nucleated Red 0.0 Blood Cells # Sodium Level 138 Potassium Level 7.4 *H Chloride Level 93 L Carbon Dioxide 17 L Level Anion Gap 28 H Blood Urea 128 H Nitrogen Creatinine 17.74 H Est Glomerular 3 L Filtrat Rate mL/min Glucose Level 112 Calcium Level 9.9 Total Bilirubin 0.1 L Direct Bilirubin 0.00 Indirect 0.1 Bilirubin Aspartate Amino 22 Transf (AST/SGOT ) Alanine 21 Aminotransferase (ALT/SGPT) Alkaline 190 H Phosphatase Troponin I < 0.012 B-Type 07099 H Natriuretic Peptide Total Protein 7.6 Albumin 4.5 Globulin 3.10 Albumin/Globulin 1.45 Ratio Bedside Glucose 100 142 Hepatitis B NEGATIVE Surface Antigen Hepatitis B Core NEGATIVE Total Antibody Hepatitis C NEGATIVE Antibody Test 01/27/18 08:19 01/27/18 10:51 01/27/18 11:15 Creatine Kinase 139 Creatine Kinase 2.1 Index Creatinine 2.95 H Kinase MB (Mass) Troponin I < 0.012 Bedside Glucose 68 L 81 Imaging ECG demonstrates sinus rhythm at 94 bpm, QRS 128 ms, nonspecific ST abnormalities Heri Schaefer DO Jan 27, 2018 13:45
[2018-01-27] MEDS: HYDROCODONE/APAP (10/325) TAB PO PRN (14:23)
--- NOTE | 2018-01-27 14:47 | CONS ---
DATE OF ADMISSION: 01/27/2018 DATE OF CONSULTATION: 01/27/2018 REASON FOR CONSULTATION: End-stage renal disease, hyperkalemia. PHYSICIAN REQUESTING CONSULT: Heri Alberto MD HISTORY OF PRESENT ILLNESS: This is a 52-year-old female with past medical history of end-stage maryam l disease on dialysis Friday, , Friday with access AV fistula, history of coronary artery disease, anemia, hypertension who presents to [facility] with complaints of missing dialysis, increased swelling and lethargy. The patient states that she has not been feeling well, a s a result, was unable to go to dialysis. The patient states that over the past 2 days, she has noti olga increased lower extremity swelling and increased shortness of breath. As a result, she came to [facility] emergency room. Upon arrival to the emergency room, the patient had laboratory data drawn, which showed a potassium of 7.4, BUN 128, and a creatinine of 17.74. The patient in the emergency room rec eived Kayexalate, sodium bicarbonate, insulin and was admitted to intensive care unit. Upon my evaluation of the patient at this time, she is currently stable. Denies any fevers, chills. No nausea, no vomiting. PAST MEDICAL HISTORY: As stated above, history of end-stage renal disease, history of hypertension, coronary artery disease and anemia. PAST SURGICAL HISTORY: Status post parathyroid resection. SOCIAL HISTORY: No smoking, no alcohol. FAMILY HISTORY: No family history of kidney disease. ALLERGIES: NO KNOWN DRUG ALLERGIES. MEDICATIONS: The patient's medications have been reviewed. REVIEW OF SYSTEMS: A 14-point review of systems was conducted. Pertinent positives stated in HPI, o therwise negative. PHYSICAL EXAMINATION: VITAL SIGNS: Blood pressure is 123/60, respirations 17, pulse 80, temperature 98.5. HEENT: Head is normocephalic. NECK: Supple. HEART: Regular rate. LUNGS: Show diminished breath sounds at base. ABDOMEN: Soft, nontender to palpation. No rebound or guarding. EXTREMITIES: Negative for clubbing, cyanosis. Positive edema. DERMATOLOGIC: No rashes. MUSCULOSKELETAL: No joint effusion. NEUROLOGIC: No change in exam. MEDICATIONS: The patient's medications have been reviewed. LABORATORY DATA: Shows a white count 5.4, hemoglobin 10.9, platelet count 176. Sodium 138, potassiu m 7.4, chloride 93, BUN 128, creatinine 17.74, anion gap 28. The patient's chest x-ray was reviewed. ASSESSMENT AND PLAN: This is a 52-year-old female who presents with: 1. End-stage renal disease. The patient on dialysis Friday, , Friday with access AV fist juventino. The patient's last hemodialysis was 1 week ago. Plan is for urgent hemodialysis. We will dial yze for 3-1/2 hours on 2K bath, calcium 2.5. We will ultrafiltrate as tolerated. 2. Hyperkalemia secondary to end-stage renal disease. The patient will be dialyzed on a low potassi um bath. Monitor potassium levels closely. 3. Metabolic acidosis secondary to end-stage renal disease. The patient will be dialyzed on a 35 bi carbonate bath. 4. Volume overload. Etiology secondary to end-stage renal disease. Plan is to ultrafiltrate approx imately 2 to 3 liters with hemodialysis. Anticipate dialysis again tomorrow for ultrafiltration. 5. Hypertension. Blood pressure is currently controlled. Continue current blood pressure regimen. Continue ultrafiltration. 6. Anemia. Monitor hemoglobin and hematocrit levels. We will give Epogen as needed. 7. Mild uremia secondary to end-stage renal disease. Continue hemodialysis. Anticipate daily dialy sis for solute clearance. 8. Mineral bone disorder. The patient is status post parathyroidectomy. We will continue Sensipar. Thank you, Dr. Alberto, for this interesting consult. It will be a pleasure to follow patient with y ou throughout the hospital course. Dictated By: HARVEY LUCIO DO NR/NTS Conf#: [id number] DID#: [id number] CC: HERI ALBERTO MD;*EndCC*
[2018-01-27] MEDS: DIPHENHYDRAMINE 50 MG INJ IV PRN (15:11)
--- NOTE | 2018-01-27 17:19 | HP ---
DATE OF ADMISSION: 01/27/2018 HISTORY OF PRESENT ILLNESS: This is one of several [facility] admissions for this 52-year-old woman was admitted with chief complaint of weakness and shortness of breath. Christine Youngblood a 52-year-old diabetic with chronic renal failure on dialysis, had missed several dialysis sessions and was progressively worsening with developing edema and shortness of breath. The patient presented to the emergency room with the above complaints and was evaluated. Of note other than obvious weakness and possible heart failure, the patient was noted to have a low level anemia, but more importantly her creatinine was at 17.74. Her BUN was 128. Her potassium was 7.4. Sodium and chloride were relatively normal. However, her CO2 is 17.. Her glucose was at good level. Alkaline phosphatase was markedly elevated. BNP was 95,000. Troponin was negative. The patient was admitted to the intensive care unit for further treatment and evaluation including acute dialysis need and other appropriate treatments. The patient has been under the care of a stave mill hand, Dr. Schaefer and has had a recent angiogram and angioplasty. Also she is under the care of special education teaching assistant for chronic dialysis. Her current state is relatively guarded in view of her markedly deteriorated condition. PAST MEDICAL HISTORY: Positive for the following: The patient has had multiple medical hospitalizations for weakness, heart failure and other issues related to her chronic renal failure and coronary artery disease. PAST SURGICAL HISTORY: She has had the following surgeries done: Thyroidectomy for papillary thyroid cancer, arthroscopic surgery of right shoulder, fistula in place on the right side for her dialysis,and a parathyroidectomy.She has had issues with her back and other issues for which she ended up being hospitalized medically..She has delivered three children, 1 was a vaginal delivery and 2 sections. She has not broken any bones. ALLERGIES: SHE STILL HAS NO KNOWN ALLERGIES TO ANY MEDICATIONS. CURRENT MEDICATIONS: Include the followin. Albuterol inhaler as needed q.6h for shortness of breath and wheezing. 2. Clopidogrel 75 mg daily. 3. Amlodipine 5 mg a day. 4. Lipitor 20 mg a day. 5. Isosorbide ER 30 mg 1 daily. 6. Metoprolol tartrate 25 mg b.i.d. 7. Ranexa 500 mg XR q.12 hours. 8. [place] 10/325 every 6 hours as needed. 9. Temazepam 30 mg capsules at bedtime for insomnia. 10. Loperamide hydrochloride and 5 mg p.r.n. for diarrhea. 11. Levothyroxine 200 mcg a day. 12. Biotin 1 mg and 5 mg tablets daily and as mentioned above. SOCIAL HISTORY: The patient is currently single, has 3 children and 1 grandchild. She does not smoke or drink alcohol or coffee, occasional insomnia. FAMILY HISTORY: Both parents are . Father at age 70 of heart issues. Mother is age 74 with hepatitis C. Three siblings are in good health. There is, however, a family history of diabetes and heart as well as cancer, hypertension and stroke. REVIEW OF SYSTEMS HEENT: Periodic headaches. CARDIORESPIRATORY: Denies any significant chest pain or shortness of breath. GASTROINTESTINAL: No melena or hematemesis. GENITOURINARY: Occasional urgency, frequency. GYNECOLOGIC: Postmenopause, uterine ablation. MUSCULOSKELETAL: Positive for back pain. NEUROPSYCHIATRIC: Unremarkable. GENERAL HEALTH: As above. PHYSICAL EXAMINATION: VITAL SIGNS: The patient's blood pressure was 110/76, pulse was 81 and regular, respirations were 16, temperature 97.8 and O2 sat 99% on room air. HEENT: Head was atraumatic. Eyes: Pupils were equal, reactive to light and accommodation. Fundi were poorly visualized. Tympanic membranes were unremarkable. Nose was unremarkable. Fair oral hygiene was noted. CHEST: Symmetrical. BREASTS: Done earlier this year did not reveal any masses. Scar was noted on the neck from prior surgery, her thyroidectomy. LUNGS: Revealed scattered rhonchi both of which cleared with coughing. HEART: PMI is fifth intercostal space, midclavicular line. Regular sinus rhythm was noted. No significant murmurs, rubs or gallops being elicited. ABDOMEN: Soft. Good bowel sounds were noted. No significant organomegaly, masses or tenderness. Scar from prior surgeries being noted. GENITALIA, PELVIC AND RECTAL: Up-to-date with her race steward. EXTREMITIES: Revealed no clubbing or cyanosis. Trace to 1+ edema being noted. Edema being noted. SKIN: Moist and warm without any eruptions. Multiple keratoses were noted. Skin tags. No gross lymphadenopathy was noted. Also scar was noted from her access for dialysis. NEUROLOGIC: Grossly intact. The patient was oriented, answered questions appropriately. IMPRESSION: 1. Acute and chronic renal failure. The patient failed to have dialysis for several sessions. 2. Diabetes mellitus type 2, under relatively good control. 3. Papillary thyroid cancer, post-thyroidectomy, on thyroid replacement. 4. Hypertension. 5. Degenerative joint disease. 6. Hyperlipidemia. 7, S/P Parathyroidectomy PLAN: The patient is admitted to the intensive care unit and will be seen by nephrology and cardiology and a sliding scale has been ordered for her diabetes, although it has not been a problem. Condition is currently is stable,prognosis depending upon ultimate diagnosis and her response to treatment. CONDITION: Guarded, but stable. PROGNOSIS: Obviously dependent upon how she responds to therapy. Dictated By: KISHORE HURST MD SS/NTS Conf#: [id number] DID#: [id number] CC: KEZIA COLBERT MD; HARVEY LUCIO DO;*EndCC* MTDD
[2018-01-27] MEDS: INSULIN ASPART [NOVOLOG] 3 ML PEN SC SCH ×2 (17:35→20:39)
--- NOTE | 2018-01-27 18:48 | NUR ---
EOSS PT IN BED RESTING WHILE RECEIVING DIALYSIS. POTASSIUM 7.4. ELEVATED BUN AND CREATININE. PT IS AWAKE AND ORIENTED X4. VITAL SIGN STABLE. PT MEDICATED FOR PAIN WITH NORCO X 1 FOR BILATERAL LEG PAIN. PT IS TELE STATUS BUT AWAITING BED. CARE GIVEN PER PROTOCOL. 3 LITER OF FLUID REMOVED FROM DIALYSIS
[2018-01-27] MEDS: RANOLAZINE (SR) 500 MG TAB PO SCH (20:36)
[2018-01-27] MEDS: AMLODIPINE 5 MG TAB PO SCH (20:36)
[2018-01-27] MEDS: FAMOTIDINE 20 MG TAB PO SCH (20:36)
[2018-01-27] MEDS: ATORVASTATIN 20 MG TAB PO SCH (20:36)
[2018-01-27] MEDS: CLOPIDOGREL 75 MG TAB PO SCH (20:37)
[2018-01-27] MEDS: METOPROLOL 25 MG TAB PO SCH (20:37)
[2018-01-28] VITALS (34 sets, daily range): BP systolic 84–131; BP diastolic 30–79; PULSE 77–88; RESP 10–19
[2018-01-28] MEDS: ACCU-CHEK XX SCH (01:27)
--- NOTE | 2018-01-28 05:11 | NUR ---
EOSS Pt vitals within MD parameter. Afebrile. Spo2>95% on room air. No reports of pain or discomfort overnight. Dialysis yesterday, 3L removed. Pt awaiting tele bed. Comfort and safety measures addressed, no other acute events to report.
[2018-01-28] MEDS ORDERED: LEVOTHYROXINE 100 MCG TAB PO SCH (06:00)
[2018-01-28] MEDS: INSULIN ASPART [NOVOLOG] 3 ML PEN SC SCH ×4 (07:35→21:00)
--- NOTE | 2018-01-28 08:00 | NUR ---
Confirmation # [id number] with [facility].
--- NOTE | 2018-01-28 08:10 | PN ---
Date/Time of Note Date/Time of Note DATE: 01/28/18 TIME: 08:04 Assessment/Plan VTE Prophylaxis Risk score (from Nsg)>0 risk: 4 SCD applied (from Nsg): Yes Pharmacological prophylaxis: other (plavix) Lines/Catheters IV Catheter Type (from Nrsg): Peripheral IV Urinary Cath still in place: No Assessment/Plan Hospital Course patient received for dialysis scheduled for second one today will transfer to telemetry when stable Assessment/Plan tsh elevated question of compliance will increase dose Renal and Cardiology consults appreciated patient doing better today Subjective 24 Hr Interval Summary Constitutional: improved Eyes: no complaints ENT: no complaints Respiratory: no complaints Cardiovascular: no complaints Gastrointestinal: no complaints Genitourinary: no complaints Musculoskeletal: back pain Skin: no complaints Neurologic: no complaints Endocrine: no complaints Lymphatic: no complaints Psychological: no complaints Exam/Review of Systems Vital Signs Vitals Vital Signs Date Temp Pulse Resp B/P (MAP) Pulse Ox O2 O2 Flow FiO2 Time Delivery Rate 01/28/18 79 13 110/64 98 Room Air 06:00 (79) 01/28/18 99.0 04:00 01/27/18 2.0 14:40 Intake and Output 01/27/18 01/27/18 01/28/18 1515:00 23:00 07:00 IntakeIntake Total 240 ml 120 ml OutputOutput Total 6400 ml BalanceBalance 240 ml -6280 ml Exam Constitutional: alert, oriented, well developed Psych: nl mood/affect Head: normocephalic Eyes: nl conjunctiva ENMT: nl external ears & nose Respiratory: clear to auscultation Cardiovascular: regular rate and rhythm Gastrointestinal: soft Musculoskeletal: nl extremities to inspection Extremities: normal pulses KISHORE HURST MD Jan 28, 2018 08:09
[2018-01-28] MEDS: RANOLAZINE (SR) 500 MG TAB PO SCH ×2 (08:14→21:43)
[2018-01-28] MEDS: CLOPIDOGREL 75 MG TAB PO SCH (08:15)
[2018-01-28] MEDS: FAMOTIDINE 20 MG TAB PO SCH (08:15)
[2018-01-28] MEDS: HYDROCODONE/APAP (10/325) TAB PO PRN (08:19)
--- NOTE | 2018-01-28 08:50 | PN ---
DATE: 01/28/2018 SUBJECTIVE: The patient had hemodialysis yesterday, tolerated well. No other events noted. OBJECTIVE: VITAL SIGNS: Blood pressure is 110/64, respirations 13, pulse 79, temperature 99.0. HEENT: Head is normocephalic. NECK: Supple. HEART: Regular rate. LUNGS: Show diminished breath sounds at the base. ABDOMEN: Soft, nontender to palpation. No rebound or guarding. EXTREMITIES: Negative for clubbing, cyanosis. Positive edema. DERMATOLOGIC: No rashes. MUSCULOSKELETAL: No joint effusions. NEUROLOGIC: No change in exam. MEDICATIONS: Reviewed. LABORATORY DATA: Shows sodium 137, potassium 5.0, chloride 90, BUN 57, creatinine 9.95. White count 3.9, hemoglobin 9.7, platelet count is 133. ASSESSMENT AND PLAN: 1. End-stage renal disease. The patient is on dialysis Friday, and Friday. The patient had hemodialysis yesterday. We will have another session of dialysis today for solute clearance. 2. Hyperkalemia secondary to end-stage renal disease, improved. Continue dialysis on low potassium bath. 3. Metabolic acidosis secondary to end-stage renal disease, resolved. 4. Volume overload secondary to end-stage renal disease, improved. Continue ultrafiltration with he modialysis. 5. Hypertension. Continue current blood pressure regimen. Continue ultrafiltration. 6. Anemia. Continue to monitor hemoglobin and hematocrit levels. 7. Mineral bone disorder. The patient is status post parathyroidectomy. Continue Sensipar. 8. Mild uremia, improving. Continue hemodialysis. 9. Hypothyroidism. Continue Synthroid. 10. Diabetes. Continue current insulin regimen per endocrinology. Dictated By: HARVEY LUCIO DO NR/NTS Conf#: [id number] DID#: [id number] CC: KEZIA COLBERT MD; HARVEY LUCIO DO;*EndCC*
[2018-01-28] MEDS: METOPROLOL 25 MG TAB PO SCH ×2 (09:00→21:00)
[2018-01-28] MEDS: DIPHENHYDRAMINE 50 MG INJ IV PRN ×2 (09:12→18:22)
[2018-01-28] MEDS ORDERED: DIPHENHYDRAMINE 50 MG INJ IV ONE (12:00)
--- NOTE | 2018-01-28 12:54 | CONS ---
Date/Time of Note Date/Time of Note DATE: 01/28/18 TIME: 12:52 Assessment/Plan Assessment/Plan Additional Assessment/Plan Shortness of breath likely secondary to volume overload from missed hemodialysis End-stage renal disease on hemodialysis Hyperkalemia CAD with history of PCI Hypertension Diabetes Dyslipidemia -Patient feeling much better after hemodialysis. Undergoing dialysis at the current time. Continue antiplatelet therapy, statin therapy, beta-blockers heart rate and blood pressure permits Consultation Date/Type/Reason Admit Date/Time Jan 27, 2018 at 04:03 Initial Consult Date Type of Consult cv 24 HR Interval Summary Free Text/Dictation Feeling much better today. Shortness of breath almost fully resolved. Denies any further chest pain since after hemodialysis Exam/Review of Systems Vital Signs Vitals Vital Signs Date Temp Pulse Resp B/P (MAP) Pulse Ox O2 O2 Flow FiO2 Time Delivery Rate 01/28/18 82 12:15 01/28/18 12 101/68 98 Room Air 12:00 (79) 01/28/18 98.0 08:00 01/27/18 2.0 14:40 Intake and Output 01/27/18 01/27/18 01/28/18 1515:00 23:00 07:00 IntakeIntake Total 240 ml 120 ml OutputOutput Total 6400 ml BalanceBalance 240 ml -6280 ml Exam No apparent distress, undergoing hemodialysis Constitutional: alert, oriented Head: normocephalic Respiratory: other (Coarse breath sounds bilaterally, no wheezing) Cardiovascular: regular rate and rhythm, other (S1-S2 heard) Gastrointestinal: soft, non-tender, bowel sounds Extremities: edema Heri Schaefer DO Jan 28, 2018 12:54
[2018-01-28] MEDS: AMLODIPINE 5 MG TAB PO SCH (13:56)
[2018-01-28] MEDS: ASPIRIN 81 MG TAB PO SCH (13:56)
[2018-01-28] MEDS ORDERED: GLUCAGON 1 MG INJ IM PRN (14:00)
[2018-01-28] MEDS ORDERED: GLUCOSE GEL 15 GRAM TUBE PO PRN ×2 (14:00)
[2018-01-28] MEDS ORDERED: GLUCOSE GEL 15 GRAM TUBE BUCCAL PRN (14:00)
[2018-01-28] MEDS ORDERED: DEXTROSE 50% 50 ML SYRINGE IV PRN ×2 (14:00)
[2018-01-28] MEDS: EPOETIN 4000 UNITS/1 ML INJ (ESRD) SC SCH (15:11)
[2018-01-28] MEDS: SOD CHLORIDE 0.9% 1,000 ML IV SCH (16:02)
--- NOTE | 2018-01-28 16:39 | NUR ---
Held morning Metoprolol and Norvasc. Patient received dialysis and 2.5 L were removed. VSS throughout and after. Norvasc administered at this time, Metoprolol not given after discussion with patient. Pt is now HOTN and extremely lethargic post dialysis. Dr. Stephens notified and NS @ 70mls/hr ordered until sustained SBP 100-110. Patient also encouraged to take PO food and fluid although she is only awake for a few moments at a time and mentation appropriate.
[2018-01-28] MEDS: ISOSORBIDE MONONITRATE(SR)30 MG TAB PO SCH (21:00)
[2018-01-28] MEDS: ACETAMINOPHEN 325 MG TAB PO PRN (21:43)
[2018-01-28] MEDS: ATORVASTATIN 20 MG TAB PO SCH (21:44)
[2018-01-29] VITALS (23 sets, daily range): BP systolic 91–155; BP diastolic 38–118; PULSE 78–91; RESP 11–17
[2018-01-29] MEDS: ACCU-CHEK XX SCH (02:00)
[2018-01-29] MEDS: LEVOTHYROXINE 100 MCG TAB PO SCH (05:08)
[2018-01-29] MEDS: HYDROCODONE/APAP (10/325) TAB PO PRN ×2 (05:09→20:19)
[2018-01-29] MEDS: SOD CHLORIDE 0.9% 1,000 ML IV SCH (05:10)
--- NOTE | 2018-01-29 06:19 | NUR ---
end of shift report no acute events over night. pt remains with sbp btw 95-105. pt asymptomatic. help pts metoprolol and indur due to blood pressure. one time norco given for back pain. pt slept well throughout the night. pt is more awake and talkative. alert and oriented x4. bed bath give, tolerated well. pts remained anuric throughout the shift.
--- NOTE | 2018-01-29 08:01 | PN ---
Date/Time of Note Date/Time of Note DATE: 01/29/18 TIME: 07:57 Assessment/Plan VTE Prophylaxis Risk score (from Ns)>0 risk: 5 SCD applied (from Ns): Yes Pharmacological prophylaxis: other (plavix 75 mg) Lines/Catheters IV Catheter Type (from Nrsg): Mid Line Central line still needed: Yes Urinary Cath still in place: No Assessment/Plan Hospital Course patient received for dialysis scheduled for second one today will transfer to telemetry when stable Assessment/Plan patient improving may have dialysis today will get out of bed in chair today transrfer to telemetry if bed available today. Cont Hosp Indication/DC Plan: still unstable Subjective 24 Hr Interval Summary Constitutional: improved Eyes: no complaints ENT: no complaints Respiratory: no complaints Cardiovascular: no complaints Gastrointestinal: no complaints Genitourinary: no complaints Musculoskeletal: no complaints Skin: no complaints Neurologic: no complaints Endocrine: no complaints Lymphatic: no complaints Exam/Review of Systems Vital Signs Vitals Vital Signs Date Temp Pulse Resp B/P (MAP) Pulse Ox O2 O2 Flow FiO2 Time Delivery Rate 01/29/18 78 12 101/89 93 06:00 (93) 01/29/18 98.3 04:00 01/29/18 Room Air 03:00 01/27/18 2.0 14:40 Intake and Output 01/28/18 01/28/18 01/29/18 1414:59 22:59 06:59 IntakeIntake Total 240 ml 540 ml 560 ml OutputOutput Total 200 ml BalanceBalance 40 ml 540 ml 560 ml Exam Constitutional: alert, oriented Head: normocephalic Eyes: nl conjunctiva ENMT: nl external ears & nose Neck: supple Respiratory: clear to auscultation Cardiovascular: regular rate and rhythm Gastrointestinal: soft Musculoskeletal: nl extremities to inspection KISHORE HURST MD Jan 29, 2018 08:01
[2018-01-29] MEDS: INSULIN ASPART [NOVOLOG] 3 ML PEN SC SCH ×4 (08:16→20:19)
[2018-01-29] MEDS: ISOSORBIDE MONONITRATE(SR)30 MG TAB PO SCH (08:21)
[2018-01-29] MEDS: RANOLAZINE (SR) 500 MG TAB PO SCH ×2 (08:21→20:20)
[2018-01-29] MEDS: ASPIRIN 81 MG TAB PO SCH (08:21)
[2018-01-29] MEDS: CLOPIDOGREL 75 MG TAB PO SCH (08:21)
[2018-01-29] MEDS: FAMOTIDINE 20 MG TAB PO SCH (08:21)
[2018-01-29] MEDS: METOPROLOL 25 MG TAB PO SCH ×2 (08:22→20:20)
[2018-01-29] MEDS: AMLODIPINE 5 MG TAB PO SCH (08:22)
--- NOTE | 2018-01-29 08:36 | NUR ---
Schedule with [facility] dialysis for 01/30/18 per MD order (Dr. Krueger confirmed d/t pts low bp) Confirmation [id number]
[2018-01-29] MEDS: DIPHENHYDRAMINE 50 MG INJ IV PRN ×2 (10:43→20:31)
[2018-01-29] MEDS: SEVELAMER CARBONATE 2.4 GM PKT GTB SCH ×2 (11:39→17:36)
--- NOTE | 2018-01-29 13:48 | NUR ---
Report called to CORRIE Vega on 5W. patient resting in bed at this time with no c/o pain. VSS. Chart and personal belongings to be transferred with patient.
--- NOTE | 2018-01-29 16:08 | CONS ---
Date/Time of Note Date/Time of Note DATE: 01/29/18 TIME: 16:07 Assessment/Plan Assessment/Plan Additional Assessment/Plan Shortness of breath likely secondary to volume overload from missed hemodialysis End-stage renal disease on hemodialysis Hyperkalemia CAD with history of PCI Hypertension Diabetes Dyslipidemia -Patient feeling much better after hemodialysis sessions. Continue antiplatelet therapy, statin therapy, beta-mariaelena as heart rate and blood pressure permits. DC planning Consultation Date/Type/Reason Admit Date/Time Jan 27, 2018 at 04:03 Initial Consult Date Type of Consult cv 24 HR Interval Summary Free Text/Dictation Denies shortness of breath, chest pain or palpitations Exam/Review of Systems Vital Signs Vitals Vital Signs Date Temp Pulse Resp B/P (MAP) Pulse Ox O2 O2 Flow FiO2 Time Delivery Rate 01/29/18 97.8 82 15 155/65 96 15:18 (95) 01/29/18 Room Air 13:00 01/27/18 2.0 14:40 Intake and Output 01/28/18 01/28/18 01/29/18 1515:00 23:00 07:00 IntakeIntake Total 240 ml 610 ml 560 ml OutputOutput Total 200 ml BalanceBalance 40 ml 610 ml 560 ml Exam No apparent distress Constitutional: alert, oriented Head: normocephalic Respiratory: other (Coarse breath sounds bilaterally, no wheezing) Cardiovascular: regular rate and rhythm, other (S1-S2 heard) Gastrointestinal: soft, non-tender, bowel sounds Extremities: edema Heri Schaefer DO Jan 29, 2018 16:08
--- NOTE | 2018-01-29 18:27 | NUR ---
EOSS: Received pt from ICU to 5W Rm 510B. Pt is AAOx4, VSS, denies pain or SOB. Skin checked w/ battery charger tester, Porsha. Plans for HD tomorrow. Hourly rounding done, fall precautions initiated, all needs attended to. Pt is stable - will endorse to oncoming shift.
[2018-01-29] MEDS: ATORVASTATIN 20 MG TAB PO SCH (20:20)
[2018-01-30] VITALS (24 sets, daily range): BP systolic 109–152; BP diastolic 46–84; PULSE 76–81; RESP 18
[2018-01-30] MEDS: ACCU-CHEK XX SCH (02:00)
[2018-01-30] MEDS: LEVOTHYROXINE 100 MCG TAB PO SCH (06:41)
--- NOTE | 2018-01-30 07:03 | NUR ---
EOSS: Pt resting in stable condition. Pt a/o X4 and on room air. VS stable. Will endorse to oncoming RN.
[2018-01-30] MEDS: INSULIN ASPART [NOVOLOG] 3 ML PEN SC SCH ×4 (07:55→20:01)
--- NOTE | 2018-01-30 07:59 | PN ---
Date/Time of Note Date/Time of Note DATE: 01/30/18 TIME: 07:54 Assessment/Plan VTE Prophylaxis Risk score (from Nsg)>0 risk: 3 SCD applied (from Nsg): Yes Pharmacological prophylaxis: other (plavix) Lines/Catheters IV Catheter Type (from Nrsg): Mid Line Central line still needed: Yes Urinary Cath still in place: No Assessment/Plan Hospital Course patient received for dialysis scheduled for second one today will transfer to telemetry when stable Assessment/Plan patient scheduled for dialysis today will ask process planner to see patient .She usually is quite symptomatic post dialysis .anticipate discharge 01/31/2018 Subjective 24 Hr Interval Summary Constitutional: no complaints Eyes: no complaints ENT: no complaints Respiratory: no complaints Cardiovascular: no complaints Gastrointestinal: no complaints Genitourinary: no complaints Musculoskeletal: no complaints Skin: no complaints Neurologic: no complaints Endocrine: no complaints Psychological: no complaints Exam/Review of Systems Vital Signs Vitals Vital Signs Date Temp Pulse Resp B/P (MAP) Pulse Ox O2 O2 Flow FiO2 Time Delivery Rate 01/30/18 98.1 78 18 128/58 95 Room Air 07:10 (81) 01/27/18 2.0 14:40 Intake and Output 01/29/18 01/29/18 01/30/18 1515:00 23:00 07:00 IntakeIntake Total 430 ml 700 ml 600 ml BalanceBalance 430 ml 700 ml 600 ml Exam Constitutional: alert, oriented Psych: no complaints Head: normocephalic, atraumatic Eyes: nl conjunctiva ENMT: nl external ears & nose Neck: supple Respiratory: clear to auscultation Cardiovascular: regular rate and rhythm Gastrointestinal: soft Musculoskeletal: nl extremities to inspection KISHORE HURST MD Jan 30, 2018 07:59
[2018-01-30] MEDS: DIPHENHYDRAMINE 50 MG INJ IV PRN (08:10)
[2018-01-30] MEDS: ISOSORBIDE MONONITRATE(SR)30 MG TAB PO SCH (08:12)
[2018-01-30] MEDS: RANOLAZINE (SR) 500 MG TAB PO SCH ×2 (08:12→19:56)
[2018-01-30] MEDS: AMLODIPINE 5 MG TAB PO SCH (08:12)
[2018-01-30] MEDS: METOPROLOL 25 MG TAB PO SCH ×2 (08:13→19:56)
[2018-01-30] MEDS: SEVELAMER CARBONATE 2.4 GM PKT GTB SCH ×3 (08:13→17:40)
[2018-01-30] MEDS: FAMOTIDINE 20 MG TAB PO SCH (08:13)
[2018-01-30] MEDS: ASPIRIN 81 MG TAB PO SCH (08:13)
[2018-01-30] MEDS: CLOPIDOGREL 75 MG TAB PO SCH (08:13)
--- NOTE | 2018-01-30 10:50 | PN ---
DATE: 01/29/2018 SUBJECTIVE: The patient had hemodialysis yesterday, tolerated well. OBJECTIVE: VITAL SIGNS: Blood pressure is 101/89, respiration 12, pulse 78, temperature 98.3. HEENT: Head is normocephalic. NECK: Supple. HEART: Regular rate. LUNGS: Show diminished breath sounds at the base. ABDOMEN: Soft, nontender to palpation. No rebound or guarding. EXTREMITIES: Negative for clubbing, cyanosis, no edema. DERMATOLOGIC: No rashes. MUSCULOSKELETAL: No joint effusion. NEUROLOGIC: No change in exam. MEDICATIONS: The patient's medications have been reviewed. LABORATORY DATA: Shows sodium 140, potassium 4.5, chloride 94, BUN 34, creatinine 7.04, phosphorus 7 .6. White count 4.1, hemoglobin 9.9, platelet count is 142. ASSESSMENT AND PLAN: 1. End-stage renal disease. The patient is on dialysis Friday, , Friday. Plan for dialy sis again today to keep patient on schedule. 2. Volume overload, improved. Will hold ultrafiltration hemodialysis. 3. Hyperkalemia, resolved. 4. Metabolic acidosis, resolved. 5. Hypertension. The patient now normotensive to hypotensive. We will hold ultrafiltration with he modialysis. 6. Anemia. Continue to monitor hemoglobin and hematocrit levels. 7. Mineral bone disorder. The patient is status post thyroidectomy. Continue the patient on phosph ate binders. 8. Uremia, resolving. 9. Hypothyroidism. Continue Synthroid. 10. Diabetes. Continue current insulin regimen. Dictated By: HARVEY BAIN/DANA Conf#: [id number] DID#: [id number] CC: KEZIA COLBERT MD;*EndCC*
[2018-01-30] MEDS: CINACALCET 30 MG TAB PO SCH (10:52)
--- NOTE | 2018-01-30 12:40 | CONS ---
Date/Time of Note Date/Time of Note DATE: 01/30/18 TIME: 12:39 Assessment/Plan Assessment/Plan Additional Assessment/Plan Shortness of breath likely secondary to volume overload from missed hemodialysis End-stage renal disease on hemodialysis Hyperkalemia CAD with history of PCI Hypertension Diabetes Dyslipidemia -Patient feeling much better after hemodialysis sessions. Continue antiplatelet therapy, statin therapy, beta-mariaelena as heart rate and blood pressure permits. DC planning Consultation Date/Type/Reason Admit Date/Time Jan 27, 2018 at 04:03 Initial Consult Date Type of Consult cv 24 HR Interval Summary Free Text/Dictation Patient feeling better. Denies shortness of breath, chest pain or palpitations Exam/Review of Systems Vital Signs Vitals Vital Signs Date Temp Pulse Resp B/P (MAP) Pulse Ox O2 O2 Flow FiO2 Time Delivery Rate 01/30/18 79 12:04 01/30/18 98.2 18 126/69 98 Room Air 11:05 (88) 01/27/18 2.0 14:40 Intake and Output 01/29/18 01/29/18 01/30/18 1414:59 22:59 06:59 IntakeIntake Total 500 ml 700 ml 600 ml BalanceBalance 500 ml 700 ml 600 ml Exam No apparent distress Constitutional: alert, oriented Head: normocephalic Respiratory: other (Coarse breath sounds bilaterally, no wheezing) Cardiovascular: regular rate and rhythm, other (S1-S2 heard) Gastrointestinal: soft, non-tender, bowel sounds Extremities: edema (Trace) Heri Schaefer DO Jan 30, 2018 12:40
--- NOTE | 2018-01-30 14:25 | NUR ---
SW: CONSULT SW MET W/ PT @ BEDSIDE, PT "HAS RECENT LOSS." PT STATES SHE WAS PREVIOUSLY LIVING W/ HER BF OF 5 YEARS, BUT STATES THAT HE ON . STATES SHE IS COPING ADEQUATELY & STATES HAS GOOD FAMILY SUPPORT. SW PROVIDED RESOURCES FOR GRIEF SUPPORT. STATES SHE HAS BEEN STAYING W/ HER NIECE LASHONDA ([phone]), WHO SHE VERBALLY DESIGNATED SURROGATE SPOKESPERSON. PT STATES SHE IS ABOUT TO BE APPROVED FOR SECTION 8 IN THE NEXT FEW DAYS, & STATES SHE PLANS TO MOVE OUT OF [employer] HOUSE WHEN SHE RECEIVES HER SECTION 8 VOUCHER. PT STATES SHES DISABLED AND RECEIVES $[id number] IN SSI MONTHLY. STATES SHES RECIPIENT OF [facility], & SON IS PROVIDER FOR 120 HOURS A MONY. [facility] SON & TRANSPORT COMPANY ARE PRIMARY MODE OF TRANSPORTATION. PT DENIESANY QUESTIONS/ CONCERNS. SW REMAINS AVAILABLE NEEDED.
--- NOTE | 2018-01-30 14:46 | PN ---
DATE: 01/30/2018 SUBJECTIVE: The patient is stable. No events overnight. No fevers, chills, nausea, vomiting. OBJECTIVE: VITAL SIGNS: Blood pressure is 128/58, pulse 78, respiration 18, temperature 98.1. HEENT: Head is normocephalic. NECK: Supple. HEART: Regular rate. LUNGS: Show diminished breath sounds at the base. ABDOMEN: Soft, nontender to palpation. No rebound or guarding. EXTREMITIES: Negative for clubbing, cyanosis, no edema. DERMATOLOGIC: No rashes. MUSCULOSKELETAL: No joint effusion. NEUROLOGIC: No change in exam. MEDICATIONS: Reviewed. Laboratory data from 01/29/2018 was reviewed. Laboratory data from 01/31/20 18 is pending. ASSESSMENT AND PLAN: 1. End-stage renal disease. The patient is on dialysis Friday, and Friday. Currently, off schedule. Plan for hemodialysis today. We will dialyze for 3 hours, 3k bath, calcium 2.5. 2. Hyperkalemia, resolved. 3. Metabolic acidosis, resolved. 4. Volume overload, improved. Continue ultrafiltration dialysis. 5. Hypertension, improved. Continue medical management. 6. Anemia. Monitor hemoglobin and hematocrit levels. 7. Mineral bone disorder. The patient is status post parathyroidectomy. Will resume the patient's Sensipar, check a PTH level. 8. Mild uremia, improved. 9. Hypothyroidism. Continue Synthroid. 10. Diabetes. Continue current medical management. Dictated By: HARVEY BAIN/DANA Conf#: [id number] DID#: [id number] CC: KEZIA COLBERT MD;*EndCC*
--- NOTE | 2018-01-30 19:05 | NUR ---
Patient in bed sleeping but easily arousable. No distress or discomfort noted during this shift. Will endorse.
[2018-01-30] MEDS: HYDROCODONE/APAP (10/325) TAB PO PRN (19:55)
[2018-01-30] MEDS: ATORVASTATIN 20 MG TAB PO SCH (19:56)
--- NOTE | 2018-01-30 20:30 | NUR ---
Nursing Note: Notified Dr. Alberto that pt is experiencing nausea. New order for Zofran 4 mg IV q 4 PRN. Will continue to monitor.
[2018-01-30] MEDS: ONDANSETRON 4 MG INJ IV PRN (21:14)
[2018-01-31] VITALS (13 sets, daily range): BP systolic 94–141; BP diastolic 49–98; PULSE 55–77; RESP 17–20
[2018-01-31] MEDS: ACETAMINOPHEN 325 MG TAB PO PRN (00:19)
[2018-01-31] MEDS: ACCU-CHEK XX SCH (02:00)
[2018-01-31] MEDS: ONDANSETRON 4 MG INJ IV PRN ×3 (06:28→15:14)
--- NOTE | 2018-01-31 06:56 | NUR ---
EOSS: Pt resting in bed. Pt a/o x4 and on room air. Notified Dr. Krueger that had SBP of 94 and is feeling lightheaded. New order for NS 500 bolus. Will endorse to oncoming RN.
[2018-01-31] MEDS: LEVOTHYROXINE 100 MCG TAB PO SCH (06:57)
[2018-01-31] MEDS ORDERED: SOD CHLORIDE 0.9% 500 ML IV ONE (07:00)
[2018-01-31] MEDS: INSULIN ASPART [NOVOLOG] 3 ML PEN SC SCH ×4 (07:55→21:00)
[2018-01-31] MEDS: FAMOTIDINE 20 MG TAB PO SCH (08:06)
[2018-01-31] MEDS: SEVELAMER CARBONATE 2.4 GM PKT GTB SCH ×4 (08:06→21:35)
[2018-01-31] MEDS: CINACALCET 30 MG TAB PO SCH (08:06)
[2018-01-31] MEDS: CLOPIDOGREL 75 MG TAB PO SCH (08:06)
[2018-01-31] MEDS: ASPIRIN 81 MG TAB PO SCH (08:06)
[2018-01-31] MEDS: METOPROLOL 25 MG TAB PO SCH ×2 (08:07→21:35)
[2018-01-31] MEDS: RANOLAZINE (SR) 500 MG TAB PO SCH ×2 (08:07→21:35)
[2018-01-31] MEDS: HYDROCODONE/APAP (10/325) TAB PO PRN (09:16)
--- NOTE | 2018-01-31 11:13 | PN ---
Date/Time of Note Date/Time of Note DATE: 01/31/18 TIME: 11:00 Assessment/Plan VTE Prophylaxis Risk score (from Ns)>0 risk: 4 SCD applied (from Ns): Yes Pharmacological prophylaxis: NA/contraindicated Pharm contraindication: renal impairment Lines/Catheters IV [facility]from [facility] Mid Line Urinary Cath still in place: No Assessment/Plan Problems: (1) Fluid overload Status: Acute Comment: Improving. Cont. HD per nephrology Qualifiers: Hypervolemia type: unspecified Qualified Codes: E87.70 - Fluid overload, unspecified (2) Hyperkalemia Status: Acute Comment: Recurrent although pt. had HD yesterday. Defer to nephrology if pt. to have another HD today or to get kayexelate (3) End stage renal disease on dialysis due to type 2 diabetes mellitus Status: Chronic Comment: Cont. HD per nephrology (4) Noncompliance of patient with renal dialysis Status: Acute Comment: Likely due to depression. Work w/ SW. Treat depression (5) Major depressive disorder, single episode, severe without psychotic features Status: Chronic Comment: Start escitalopram 10 mg/d (6) Papillary thyroid carcinoma Onset Date: ~ 02/2013 Status: Chronic Comment: Cont. LT4 daily (7) DM (diabetes mellitus), type 2 Status: Chronic Comment: Good glycemic control on no meds. Will monitor and decide if meds need to be added (8) Hiatal hernia with GERD Status: Chronic Comment: Cont. famotidine (9) Secondary hyperparathyroidism of renal origin Status: Chronic Comment: Cont. cinacalcet. Calcium controlled (10) Essential (primary) hypertension Status: Chronic Comment: Cont. amlodipine and metoprolol (11) Hyperlipidemia Status: Chronic Comment: Cont. statin (12) Atherosclerotic heart disease of [place] coronary artery without angina pectoris Status: Chronic Comment: Cont. isosorbide, ranexa, clopidogrel, metoprolol (13) Headache Status: Acute Comment: Uncertain etiology. Likely due to recovery from missed HD. Cont. tylenol/norco (14) Pain in right leg Status: Acute Comment: Uncertain etiology. Likely due to recovery from missed HD. Cont. tylenol/norco (15) Nausea Status: Acute Comment: Ondansetron not effective. Will add metoclopramide prn. Subjective 24 Hr Interval Summary Constitutional: No no complaints (doesn't feel well over all.) Respiratory: no complaints Cardiovascular: no complaints Gastrointestinal: nausea Genitourinary: no complaints Musculoskeletal: bone/joint pain (R calf hurts) Neurologic: headache Exam/Review of Systems Vital Signs Vitals VS - Last 72 Hours, by Label Date Temp Pulse Resp B/P (MAP) Pulse Ox O2 O2 Flow FiO2 Time Delivery Rate 01/31/18 65 129/98 09:13 (108) 01/31/18 64 08:18 01/31/18 98.0 63 20 100/49 97 Room Air 07:15 (66) 01/31/18 63 18 94/52 (66) 94 06:22 01/31/18 64 04:00 01/31/18 98.6 77 17 141/55 98 03:28 (83) 01/31/18 98.3 75 17 107/54 97 00:00 (71) 01/31/18 74 00:00 01/30/18 77 20:00 01/30/18 98.5 79 18 152/59 97 19:34 (90) 01/30/18 76 16:48 01/30/18 97.7 78 18 122/54 97 Room Air 15:05 (76) 01/30/18 78 12:39 01/30/18 76 12:35 01/30/18 77 12:20 01/30/18 79 12:04 01/30/18 79 11:49 01/30/18 79 11:33 01/30/18 79 11:19 01/30/18 98.2 79 18 126/69 98 Room Air 11:05 (88) 01/30/18 79 11:03 01/30/18 81 10:49 01/30/18 81 10:34 01/30/18 78 10:19 01/30/18 80 10:03 01/30/18 80 09:49 01/30/18 79 09:33 01/30/18 78 18 128/76 98 Room Air 09:33 (93) 01/30/18 81 08:21 01/30/18 98.1 78 18 128/58 95 Room Air 07:10 (81) 01/30/18 98.2 77 18 118/59 100 04:27 (78) 01/30/18 77 04:00 01/30/18 80 00:00 01/29/18 98.1 87 17 122/66 100 23:42 (84) 01/29/18 91 20:00 01/29/18 97.9 91 16 123/56 100 19:56 (78) 01/29/18 85 16:16 01/29/18 97.8 82 15 155/65 96 15:18 (95) 01/29/18 83 12 112/68 95 13:30 (83) 01/29/18 85 12 116/42 100 13:00 (66) 01/29/18 85 12 116/42 100 Room Air 13:00 (66) 01/29/18 98.0 89 13 118/50 100 Room Air 12:30 (72) 01/29/18 82 12:00 01/29/18 84 16 100 12:00 01/29/18 80 12 129/118 98 Room Air 11:00 (122) 01/29/18 78 11 116/64 100 Room Air 10:00 (81) 01/29/18 82 13 143/59 100 Room Air 09:00 (87) 01/29/18 84 08:00 01/29/18 97.7 82 98 08:00 01/29/18 80 97 07:59 01/29/18 80 109/65 07:57 (80) 01/29/18 78 96/55 (69) 98 07:00 01/29/18 78 12 101/89 93 06:00 (93) 01/29/18 82 13 94/62 (73) 91 05:00 01/29/18 80 04:00 01/29/18 98.3 78 11 91/47 (62) 98 04:00 01/29/18 80 17 96/59 (71) 97 Room Air 03:00 01/29/18 81 14 106/54 95 Room Air 02:00 (71) 01/29/18 82 93/45 (61) Room Air 01:00 01/29/18 83 00:00 01/29/18 98.4 82 13 103/38 95 Room Air 00:00 (59) 01/28/18 83 19 96/57 (70) 100 Room Air 23:00 01/28/18 84 11 104/43 100 Room Air 22:00 (63) 01/28/18 84 15 99/36 (57) 97 Room Air 21:00 01/28/18 85 20:00 01/28/18 98.5 85 16 103/41 99 Room Air 20:00 (61) 01/28/18 84 14 100/43 99 Room Air 19:00 (62) 01/28/18 98.0 81 12 84/38 (53) 100 Room Air 16:00 01/28/18 81 16:00 01/28/18 80 10 91/30 (50) 92 Room Air 15:00 01/28/18 85 16 115/45 Room Air 14:00 (68) 01/28/18 81 19 123/74 94 Room Air 13:02 (90) 01/28/18 85 13 129/75 100 Room Air 13:00 (93) 01/28/18 79 12:45 01/28/18 80 12:30 01/28/18 82 12:15 01/28/18 97.7 81 12 101/68 98 12:00 (79) 01/28/18 81 12 101/68 98 Room Air 12:00 (79) 01/28/18 80 12:00 01/28/18 80 12:00 01/28/18 79 11:45 01/28/18 81 11:30 01/28/18 78 11:15 Vital Signs Date Temp Pulse Resp B/P (MAP) Pulse Ox O2 O2 Flow FiO2 Time Delivery Rate 01/31/18 65 129/98 09:13 (108) 01/31/18 98.0 20 97 Room Air 07:15 01/27/18 2.0 14:40 Intake and Output 01/30/18 01/30/18 01/31/18 1515:00 23:00 07:00 IntakeIntake Total 800 ml 500 ml OutputOutput Total 1400 ml BalanceBalance -1400 ml 800 ml 500 ml Exam Constitutional: alert, oriented, well developed Psych: depression Respiratory: clear to auscultation, normal air movement Cardiovascular: regular rate and rhythm, nl pulses; No edema, No murmurs/extra sounds, No rub Gastrointestinal: soft, nl liver, spleen, non-tender, bowel sounds; No mass, No rebound or guarding Musculoskeletal: nl extremities to inspection Extremities: normal pulses; No cyanosis, No clubbing, No edema Neurological: DESIGNER/WRITER II-XII intact, nl mental status, nl speech, nl strength Additional Comments Bedside Glucose - 72 Hours Test 01/28/18 11:48 01/28/18 17:10 01/28/18 21:33 01/29/18 08:12 Bedside 105 178 166 149 Glucose mg/dL (70-220) mg/dL (70-220) mg/dL (70-220) mg/dL (70-220) Test 01/29/18 11:35 01/29/18 17:20 01/29/18 20:17 01/30/18 07:59 Bedside 144 131 147 117 Glucose mg/dL (70-220) mg/dL (70-220) mg/dL (70-220) mg/dL (70-220) Test 01/30/18 12:43 01/30/18 17:37 01/30/18 20:00 01/31/18 08:05 Bedside 92 127 113 126 Glucose mg/dL (70-220) mg/dL (70-220) mg/dL (70-220) mg/dL (70-220) KEZIA COLBERT MD Jan 31, 2018 11:10
[2018-01-31] MEDS: AMLODIPINE 5 MG TAB PO SCH (11:54)
[2018-01-31] MEDS: ISOSORBIDE MONONITRATE(SR)30 MG TAB PO SCH (11:54)
[2018-01-31] MEDS: ESCITALOPRAM 10 MG TAB PO SCH (12:01)
--- NOTE | 2018-01-31 14:07 | PN ---
DATE: 01/31/2018 SUBJECTIVE: The patient had hemodialysis yesterday, tolerated well. This morning, patient was compl aining of lightheadedness and dizziness. Denies any chest pain, fevers or chills. OBJECTIVE: VITAL SIGNS: Blood pressure is100/49, respirations 20, pulse 63, temperature 98.0. HEENT: Head is normocephalic. NECK: Supple. HEART: Regular rate. LUNGS: Show diminished breath sounds at the base. ABDOMEN: Soft, nontender to palpation. No rebound or guarding. EXTREMITIES: Negative for clubbing, cyanosis, no edema. DERMATOLOGIC: No rashes. MUSCULOSKELETAL: No joint effusion. NEUROLOGIC: No change in exam. MEDICATIONS: Reviewed. LABORATORY DATA: Currently pending. ASSESSMENT AND PLAN: 1. End-stage renal disease. The patient is on dialysis Friday, and Friday, currently of f schedule. The patient had hemodialysis yesterday, tolerated well. Anticipate next dialysis tomorr ow. 2. Hypertension. Etiology may be secondary to ultrafiltration dialysis. Plan is to give the patien t a fluid bolus challenge of 500 mL. Will monitor closely. 3. Anemia. Monitor H and H levels. Will give Epogen as needed. 4. Mineral bone disorder. The patient is currently on Sensipar. Follow up PTH level. The patient is now status post parathyroidectomy. 5. Hypothyroidism. Continue Synthroid. 6. Diabetes. Continue current insulin regimen. Dictated By: HARVEY LUCIO DO NR/NTS Conf#: [id number] DID#: [id number] CC: KEZIA COLBERT MD;*EndCC*
[2018-01-31] MEDS: METOCLOPRAMIDE 10 MG INJ IV PRN (15:14)
--- NOTE | 2018-01-31 18:15 | NUR ---
EOSS Patient hypotensive this morning and was endorsed a 500ml bolus which was given and her blood pressure stabilized at 129/98, administered norco 2 tab once for pain in legs and head, administered zofran 4 mg IV twice and reglan 10mg IV once for nausea, no vomiting, no shortness of breath, cough, fever, chills, dizziness, but patient was lethargic and slept most of the day, blood glucose controlled, tolerating diet, initiated first dose of lexapro today, patient is scheduled for hemodialysis tomorrow with confirmation #[id number], blood pressure was 91/[address] Alberto aware with no new orders at this time, just to monitor the patient. Will endorse care to manager shift.
[2018-01-31] MEDS: ATORVASTATIN 20 MG TAB PO SCH (21:36)
[2018-02-01] VITALS (26 sets, daily range): BP systolic 82–141; BP diastolic 46–73; PULSE 59–87; RESP 18–20
[2018-02-01] MEDS: ACCU-CHEK XX SCH (02:00)
[2018-02-01] MEDS: LEVOTHYROXINE 100 MCG TAB PO SCH (05:51)
[2018-02-01] MEDS: INSULIN ASPART [NOVOLOG] 3 ML PEN SC SCH ×4 (07:54→21:00)
[2018-02-01] MEDS: CINACALCET 30 MG TAB PO SCH (07:54)
[2018-02-01] MEDS: ISOSORBIDE MONONITRATE(SR)30 MG TAB PO SCH (07:55)
[2018-02-01] MEDS: AMLODIPINE 5 MG TAB PO SCH (07:55)
[2018-02-01] MEDS: ASPIRIN 81 MG TAB PO SCH (07:55)
[2018-02-01] MEDS: RANOLAZINE (SR) 500 MG TAB PO SCH ×2 (07:56→21:00)
[2018-02-01] MEDS: CLOPIDOGREL 75 MG TAB PO SCH (07:56)
[2018-02-01] MEDS: METOPROLOL 25 MG TAB PO SCH ×2 (07:56→21:00)
[2018-02-01] MEDS: FAMOTIDINE 20 MG TAB PO SCH (07:57)
[2018-02-01] MEDS: ESCITALOPRAM 10 MG TAB PO SCH (07:57)
--- NOTE | 2018-02-01 11:55 | PN ---
Date/Time of Note Date/Time of Note DATE: 02/01/18 TIME: 11:48 Assessment/Plan VTE Prophylaxis Risk score (from Ns)>0 risk: 3 SCD applied (from Ns): Yes Pharmacological prophylaxis: NA/contraindicated Pharm contraindication: renal impairment Lines/Catheters IV Catheter Type (from Nrsg): Mid Line Urinary Cath still in place: No Assessment/Plan Problems: (1) Headache Status: Acute Comment: Uncertain etiology. Cont. tylenol (2) Nausea Status: Acute Comment: uncertain etiology. Add pantoprazole to see if this helps. Cont. zofran and metoclopramide (3) Pain in right leg Status: Acute Comment: Cont. tylenol. Etiology uncertain (4) Hyperkalemia Status: Acute Comment: Persisted yesterday; awaiting labs today (5) Fluid overload Status: Acute Comment: cont. HD per nephrology Qualifiers: Hypervolemia type: unspecified Qualified Codes: E87.70 - Fluid overload, unspecified (6) Hiatal hernia with GERD Status: Chronic Comment: Add pantoprazole daily (7) Major depressive disorder, single episode, severe without psychotic features Status: Chronic Comment: Cont. escitalopram (8) Noncompliance of patient with renal dialysis Status: Acute Comment: Cont. escitalopram; defer to nephrology (9) End stage renal disease on dialysis due to type 2 diabetes mellitus Status: Chronic Comment: defer to nephrology (10) DM (diabetes mellitus), type 2 Status: Chronic Comment: BG in excellent control on no therapy (11) Papillary thyroid carcinoma Onset Date: ~ 02/2013 Status: Chronic Comment: Cont. LT4 (12) Secondary hyperparathyroidism of renal origin Status: Chronic Comment: Cont. cinacalcet (13) Essential (primary) hypertension Status: Chronic Comment: Cont. amlodipine, metoprolol (14) Hyperlipidemia Status: Chronic Comment: Cont. statin (15) Atherosclerotic heart disease of [place] coronary artery without angina pectoris Status: Chronic Comment: cont. clopidogrel Subjective 24 Hr Interval Summary Constitutional: no complaints, improved Respiratory: no complaints Cardiovascular: no complaints Gastrointestinal: nausea Genitourinary: no complaints Musculoskeletal: bone/joint pain (BLE pain in the calves) Neurologic: headache (bifrontal) Exam/Review of Systems Vital Signs Vitals VS - Last 72 Hours, by Label Date Temp Pulse Resp B/P (MAP) Pulse Ox O2 O2 Flow FiO2 Time Delivery Rate 02/01/18 98.0 63 20 98/56 (70) 97 Room Air 11:08 02/01/18 64 08:20 02/01/18 97.5 63 20 141/62 98 Room Air 07:31 (88) 02/01/18 98.0 87 18 120/61 98 05:17 (80) 02/01/18 62 04:00 02/01/18 97.9 59 18 110/59 97 00:17 (76) 02/01/18 61 00:00 01/31/18 57 20:00 01/31/18 97.7 55 18 107/54 96 19:43 (71) 01/31/18 65 16:20 01/31/18 98.0 65 20 102/51 100 Room Air 15:25 (68) 01/31/18 63 12:36 01/31/18 97.7 64 20 95/52 (66) 96 Room Air 11:06 01/31/18 65 129/98 09:13 (108) 01/31/18 64 08:18 01/31/18 98.0 63 20 100/49 97 Room Air 07:15 (66) 01/31/18 63 18 94/52 (66) 94 06:22 01/31/18 64 04:00 01/31/18 98.6 77 17 141/55 98 03:28 (83) 01/31/18 98.3 75 17 107/54 97 00:00 (71) 01/31/18 74 00:00 01/30/18 77 20:00 01/30/18 98.5 79 18 152/59 97 19:34 (90) 01/30/18 76 16:48 01/30/18 97.7 78 18 122/54 97 Room Air 15:05 (76) 01/30/18 78 12:39 01/30/18 76 12:35 01/30/18 77 12:20 01/30/18 79 12:04 01/30/18 79 11:49 01/30/18 79 11:33 01/30/18 79 11:19 01/30/18 98.2 79 18 126/69 98 Room Air 11:05 (88) 01/30/18 79 11:03 01/30/18 81 10:49 12/21/18 81 10:34 01/30/18 78 10:19 01/30/18 80 10:03 01/30/18 80 09:49 01/30/18 79 09:33 01/30/18 78 18 128/76 98 Room Air 09:33 (93) 01/30/18 81 08:21 01/30/18 98.1 78 18 128/58 95 Room Air 07:10 (81) 01/30/18 98.2 77 18 118/59 100 04:27 (78) 01/30/18 77 04:00 01/30/18 80 00:00 01/29/18 98.1 87 17 122/66 100 23:42 (84) 01/29/18 91 20:00 01/29/18 97.9 91 16 123/56 100 19:56 (78) 01/29/18 85 16:16 01/29/18 97.8 82 15 155/65 96 15:18 (95) 01/29/18 83 12 112/68 95 13:30 (83) 01/29/18 85 12 116/42 100 13:00 (66) 01/29/18 85 12 116/42 100 Room Air 13:00 (66) 01/29/18 98.0 89 13 118/50 100 Room Air 12:30 (72) 01/29/18 82 12:00 01/29/18 84 16 100 12:00 Vital Signs Date Temp Pulse Resp B/P (MAP) Pulse Ox O2 O2 Flow FiO2 Time Delivery Rate 02/01/18 98.0 63 20 98/56 (70) 97 Room Air 11:08 Intake and Output 01/31/18 01/31/18 02/01/18 1515:00 23:00 07:00 IntakeIntake Total 500 ml 720 ml 400 ml BalanceBalance 500 ml 720 ml 400 ml Exam Constitutional: alert, oriented, well developed Psych: depression Respiratory: clear to auscultation, normal air movement Cardiovascular: regular rate and rhythm, nl pulses; No edema, No murmurs/extra sounds, No rub Gastrointestinal: soft, nl liver, spleen, tender (diffusely TTP); No non-tender Musculoskeletal: nl extremities to inspection, other (TTP B calves) Extremities: No cyanosis, No clubbing, No edema Neurological: DIRECTOR DIGITAL SALES II-XII intact, nl mental status, nl speech, nl strength Additional Comments Bedside Glucose - 72 Hours Test 01/29/18 17:20 01/29/18 20:17 01/30/18 07:59 01/30/18 12:43 Bedside 131 147 117 92 Glucose mg/dL (70-220) mg/dL (70-220) mg/dL (70-220) mg/dL (70-220) Test 01/30/18 17:37 01/30/18 20:00 01/31/18 08:05 01/31/18 11:59 Bedside 127 113 126 109 Glucose mg/dL (70-220) mg/dL (70-220) mg/dL (70-220) mg/dL (70-220) Test 01/31/18 16:52 01/31/18 21:33 02/01/18 02:10 02/01/18 07:53 Bedside 118 105 96 129 Glucose mg/dL (70-220) mg/dL (70-220) mg/dL (70-220) mg/dL (70-220) KEZIA COLBERT MD Feb 01, 2018 11:55
[2018-02-01] MEDS: PANTOPRAZOLE (EC) 40 MG TAB PO SCH (12:11)
[2018-02-01] MEDS: SEVELAMER CARBONATE 2.4 GM PKT GTB SCH ×2 (12:11→17:35)
--- NOTE | 2018-02-01 12:29 | PN ---
DATE: 02/01/2018 SUBJECTIVE: The patient is stable, no events overnight. No fevers, chills, nausea, vomiting. OBJECTIVE: VITAL SIGNS: Blood pressure is 141/62, pulse 64, respirations 20, temperature 97.5. HEENT: Head is normocephalic. NECK: Supple. HEART: Regular rate. LUNGS: Show diminished breath sounds at the base. ABDOMEN: Soft, nontender to palpation without rebound or guarding. EXTREMITIES: Negative for clubbing, cyanosis, no edema. DERMATOLOGIC: No rashes. MUSCULOSKELETAL: No joint effusion. NEUROLOGIC: No change in exam. MEDICATIONS: Reviewed. LABORATORY DATA: Has been reviewed. ASSESSMENT AND PLAN: 1. End-stage renal disease. The patient is on dialysis Friday, and Friday. Currently, off schedule. Plan for dialysis today. We will dialyze 3 hours 2k bath, calcium 2.5, no ultrafiltra tion. 2. Hypotension. Etiology is likely secondary to ultrafiltration dialysis. The patient is normotens sandro. Will hold ultrafiltration today with hemodialysis. 3. Anemia. Monitor hemoglobin and hematocrit levels. 4. Mineral bone disorder. Continue Sensipar. Follow PTH level. 5. Hypothyroidism. Continue Synthroid. 6. Diabetes. Continue current insulin regimen. Dictated By: HARVEY LUCIO DO NR/NTS Conf#: [id number] DID#: [id number] CC: KEZIA COLBERT MD; KISHORE HURST MD;*EndCC*
[2018-02-01] MEDS ORDERED: LORAZEPAM 0.5 MG TAB PO ONE (15:30)
[2018-02-01] MEDS ORDERED: QUETIAPINE 25 MG TAB PO ONE (15:30)
--- NOTE | 2018-02-01 18:28 | NUR ---
EOSS Patient was scheduled for dialysis at 1430 but was postponed due to a STAT patient on another unit, patient was refusing labs most of the day but this afternoon was able to complete and potassium was 6.4 reported as critical at [address] Krueger responded at 1600 with orders to make patient a STAT dialysis, patient also started having hallucinations around 1500 claiming she saw a woman trying to shoot her and someone watching her from the ceiling, she attempted to leave and also called 10-11-, was able to calm the patient and put her on the phone with family who was made aware of the situation, per Dr. Alberto administered seroquel 25mg PO once and ativan 5mg PO once, but patient continued to hallucinate and did not sleep at all, educated the patient that her hallucinations are likely related to toxic metabolic encephalopathy and delirium due to her medical condition and consequences of missing dialysis as stated by Dr. Alberto, patient is currently being dialyzed and is hypotensive therefore Dr. Krueger ordered albumin PRN for pressure support and no fluid removal. Otherwise no complaints of pain today, tolerating diet but refused to eat dinner this evening, blood glucose controlled, and family updated on plan of care.
[2018-02-01] MEDS: ALBUMIN HUMAN 25% 100 ML IV PRN (19:12)
--- NOTE | 2018-02-01 19:41 | NUR ---
RN NOTES: CURRENTLY, ON DIALYSIS.
[2018-02-01] MEDS: ATORVASTATIN 20 MG TAB PO SCH (21:00)
[2018-02-02] VITALS (12 sets, daily range): BP systolic 101–138; BP diastolic 49–70; PULSE 65–75; RESP 16–19
[2018-02-02] MEDS: ACCU-CHEK XX SCH (02:00)
[2018-02-02] MEDS: LEVOTHYROXINE 100 MCG TAB PO SCH (05:26)
[2018-02-02] MEDS: PANTOPRAZOLE (EC) 40 MG TAB PO SCH (05:26)
--- NOTE | 2018-02-02 07:35 | NUR ---
EOSS: PATIENT HAD OCCASIONAL VISUAL HALLUCINATION LAST NIGHT POST DIALYSIS. PATIENT CALM AND COOPERATIVE AT THIS TIME. NO OUTPUT TAKEN FROM DIALYSIS LAST NIGHT.
[2018-02-02] MEDS: INSULIN ASPART [NOVOLOG] 3 ML PEN SC SCH ×4 (07:55→21:00)
--- NOTE | 2018-02-02 08:05 | PN ---
Date/Time of Note Date/Time of Note DATE: 02/02/18 TIME: 08:00 Assessment/Plan VTE Prophylaxis Risk score (from Nsg)>0 risk: 5 SCD applied (from Nsg): Yes Pharmacological prophylaxis: other (plavix) Lines/Catheters IV Catheter Type (from Nrsg): Mid Line Central line still needed: Yes Urinary Cath still in place: No Assessment/Plan Hospital Course patient received for dialysis scheduled for second one today will transfer to telemetry when stable Assessment/Plan patient to have dialysis today will discuss with Dr.Hakimi ko chest pain if OK will discharge post dialysis Cont Hosp Indication/DC Plan: if ok with cardiology and renal may go home today Subjective 24 Hr Interval Summary Constitutional: other (chest pain) Eyes: no complaints ENT: no complaints Respiratory: no complaints Cardiovascular: chest pain Gastrointestinal: no complaints Genitourinary: no complaints Musculoskeletal: no complaints Skin: no complaints Endocrine: no complaints Psychological: no complaints Exam/Review of Systems Vital Signs Vitals Vital Signs Date Temp Pulse Resp B/P (MAP) Pulse Ox O2 O2 Flow FiO2 Time Delivery Rate 02/02/18 98.5 70 19 129/69 97 04:30 (89) 02/01/18 Room Air 22:30 Intake and Output 02/01/18 02/01/18 02/02/18 1515:00 23:00 07:00 IntakeIntake Total 720 ml 300 ml OutputOutput Total 500 ml BalanceBalance 220 ml 300 ml Exam Constitutional: alert, oriented Psych: no complaints Head: normocephalic Eyes: nl conjunctiva ENMT: nl external ears & nose Neck: supple Respiratory: clear to auscultation Cardiovascular: regular rate and rhythm Gastrointestinal: soft Musculoskeletal: nl extremities to inspection KISHORE HURST MD Feb 02, 2018 08:05
[2018-02-02] MEDS: FAMOTIDINE 20 MG TAB PO SCH (08:25)
[2018-02-02] MEDS: CLOPIDOGREL 75 MG TAB PO SCH (08:25)
[2018-02-02] MEDS: ESCITALOPRAM 10 MG TAB PO SCH (08:25)
[2018-02-02] MEDS: ASPIRIN 81 MG TAB PO SCH (08:25)
[2018-02-02] MEDS: SEVELAMER CARBONATE 2.4 GM PKT GTB SCH ×3 (08:26→17:55)
[2018-02-02] MEDS: RANOLAZINE (SR) 500 MG TAB PO SCH ×2 (08:26→21:14)
[2018-02-02] MEDS: CINACALCET 30 MG TAB PO SCH (08:26)
[2018-02-02] MEDS: AMLODIPINE 5 MG TAB PO SCH (09:00)
[2018-02-02] MEDS: ISOSORBIDE MONONITRATE(SR)30 MG TAB PO SCH (09:00)
[2018-02-02] MEDS: METOPROLOL 25 MG TAB PO SCH ×2 (09:00→21:15)
--- NOTE | 2018-02-02 12:36 | PN ---
DATE: 02/02/2018 SUBJECTIVE: The patient is stable, had hemodialysis yesterday, tolerated well. OBJECTIVE: VITAL SIGNS: Blood pressure is 101/49, pulse 68, respiration 16, temperature 98.2. HEENT: Head is normocephalic. NECK: Supple. HEART: Regular rate. LUNGS: Show diminished breath sounds at the base. ABDOMEN: Soft, nontender to palpation without rebound or guarding. EXTREMITIES: Negative for clubbing, cyanosis, no edema. DERMATOLOGIC: No rashes. MUSCULOSKELETAL: No joint effusion. NEUROLOGIC: No change in exam. MEDICATIONS: Reviewed. LABORATORY DATA: From 02/01/2018 was reviewed. Laboratory data from 02/02/2018 is pending. ASSESSMENT AND PLAN: 1. End-stage renal disease. The patient had hemodialysis yesterday, tolerated well. Plan for dialy sis again tomorrow. 2. Hypokalemia. Continue dialysis on low potassium bath. Continue renal diet. 3. Anemia. Continue to monitor hemoglobin and hematocrit levels. 4. Mineral bone disorder, monitor calcium and phosphorus levels. Continue Sensipar. 5. Hypothyroidism. Continue Synthroid. 6. Diabetes. Continue current insulin regimen. Dictated By: HARVEY BAIN/NTS Conf#: [id number] DID#: [id number]
--- NOTE | 2018-02-02 13:19 | CONS ---
Date/Time of Note Date/Time of Note DATE: 02/02/18 TIME: 13:17 Assessment/Plan Assessment/Plan Additional Assessment/Plan Shortness of breath likely secondary to volume overload from missed hemodialysis End-stage renal disease on hemodialysis Hyperkalemia CAD with history of PCI Hypertension Diabetes Dyslipidemia -Patient with episode of hallucinations and became anxious. Developed sharp chest discomfort that was worse with pushing on her chest and coughing, denied associated shortness of breath or diaphoresis. Symptoms have since resolved. Chest pain does not appear cardiac in etiology. Patient is on dual antiplatelet therapy, she is awaiting outpatient PCI of a chronic total occlusion of her RCA. Continue statin therapy, Ranexa, long-acting nitroglycerin. Consultation Date/Type/Reason Admit Date/Time Jan 27, 2018 at 04:03 Initial Consult Date Type of Consult cv 24 HR Interval Summary Free Text/Dictation Patient complaining of seeing people in the room. She is not sure if she is hallucinating. At one time she saw many people in the room and became anxious and had chest pain. Chest pain was sharp in nature and worse with coughing and has since resolved. Exam/Review of Systems Vital Signs Vitals Vital Signs Date Temp Pulse Resp B/P (MAP) Pulse Ox O2 O2 Flow FiO2 Time Delivery Rate 02/02/18 98.4 70 16 127/69 97 12:24 (88) 02/01/18 Room Air 22:30 Intake and Output 02/01/18 02/01/18 02/02/18 1515:00 23:00 07:00 IntakeIntake Total 720 ml 300 ml OutputOutput Total 500 ml BalanceBalance 220 ml 300 ml Exam Slightly anxious Constitutional: alert, oriented Head: normocephalic Respiratory: other (Coarse breath sounds bilaterally, no wheezing) Cardiovascular: regular rate and rhythm, other (S1-S2 heard) Gastrointestinal: soft, non-tender, bowel sounds Musculoskeletal: other (Chest wall discomfort with palpation) Extremities: edema (Trace) Medications Medications Current Medications Acetaminophen (Tylenol Tab) 650 mg Q6H PRN PO MILD PAIN(1-3)OR ELEVATED TEMP Last administered on 01/31/18at 00:19; Admin Dose 650 MG; Start 01/27/18 at 13:30 Amlodipine Besylate (Norvasc) 5 mg DAILY PO Last administered on 02/01/18at 07:55; Admin Dose 5 MG; Start 01/27/18 at 21:00 Atorvastatin Calcium (Lipitor) 20 mg HS PO Last administered on 01/31/18at 21 :36; Admin Dose 20 MG; Start 01/27/18 at 21:00 Clopidogrel Bisulfate (plaVIX) 75 mg DAILY PO Last administered on 02/02/18at 0 8:25; Admin Dose 75 MG; Start 01/27/18 at 21:00 Acetaminophen/ Hydrocodone Bitart ([place] (10/325)) 2 tab Q6H PRN PO MODERATE P AIN LEVEL 4-6 Last administered on 01/31/18 09:16; Admin Dose 2 TAB; Start 01/27/18 at 13:30 Isosorbide Mononitrate (Imdur) 30 mg DAILY PO Last administered on 02/01/18 07:55; Admin Dose 30 MG; Start 01/28/18 at 21:00 Famotidine (Pepcid) 10 mg DAILY PO Last administered on 02/02/18 08:25; Admin Dose 10 MG; Start 01/27/18 at 21:00 Diagnostic Test (Pha) (Accu-Chek) 1 ea 02 XX Last administered on 02/01/18at 02:00; Admin Dose 1 EA; Start 01/28/18 at 02:00 Insulin Aspart (Novolog Insulin Pen) NOVOLOG *MILD* ALGORITHM WITH MEALS BEDTIME SC Last administered on 01/29/18 11:43; Admin Dose 1 UNIT; Start 01/27/18 at 17:35 Metoprolol Tartrate (Lopressor) 25 mg BID PO Last administered on 02/01/18 07:56; Admin Dose 25 MG; Start 01/27/18 at 21:00 Ranolazine (Ranexa) 500 mg Q12 PO Last administered on 02/02/18 08:26; Admin Dose 500 MG; Start 01/27/18 at 21:00 Zolpidem Tartrate (Ambien) 5 mg HS MAY REPEAT X 1 PRN PO INSOMNIA; Start 01/27/18 at 13:30 Diphenhydramine HCl (Benadryl) 25 mg Q6H PRN IV ITCHING Last administered on 01/30/18at 08:10; Admin Dose 25 MG; Start 01/27/18 at 14:30 Epoetin Geo (Epogen (Esrd)) 8,000 units AFTER DIALYSIS SC Last administered on 01/28/18at 15:11; Admin Dose 8,000 UNITS; Start 01/28/18 at 08:00 Levothyroxine Sodium (Synthroid) 225 mcg DAILY@06 PO Last administered on 02/02/18at 05:26; Admin Dose 225 MCG; Start 01/29/18 at 06:00 Aspirin (Aspirin) 81 mg DAILY PO Last administered on 02/02/18at 08:25; Admin Dose 81 MG; Start 01/28/18 at 13:00 Miscellaneous Information 1 ea NOTE XX ; Start 01/28/18 at 14:00 Glucose (Glutose) 15 gm Q15M PRN PO DECREASED GLUCOSE; Start 01/28/18 at 14:00 Glucose (Glutose) 22.5 gm Q15M PRN PO DECREASED GLUCOSE; Start 01/28/18 at 14:00 Dextrose (D50w Syringe) 25 ml Q15M PRN IV DECREASED GLUCOSE; Start 01/28/18 at 14:00 Dextrose (D50w Syringe) 50 ml Q15M PRN IV DECREASED GLUCOSE; Start 01/28/18 at 14:00 Glucagon (Glucagen) 1 mg Q15M PRN IM DECREASED GLUCOSE; Start 01/28/18 at 14:00 Glucose (Glutose) 15 gm Q15M PRN BUCCAL DECREASED GLUCOSE; Start 01/28/18 at 14:00 Sevelamer Carbonate (Renvela) 2.4 gm WITH MEALS GTB Last administered on 02/02/18at 11:50; Admin Dose 2.4 GM; Start 01/29/18 at 11:30 Cinacalcet (Sensipar) 60 mg WITH BREAKFAST PO Last administered on 02/02/18at 08:26; Admin Dose 60 MG; Start 01/30/18 at 09:00 Ondansetron HCl (Zofran Inj) 4 mg Q4H PRN IV NAUSEA AND/OR VOMITING Last administered on 01/31/18at 15:14; Admin Dose 4 MG; Start 01/30/18 at 20:30 Metoclopramide HCl (Reglan) 10 mg Q6H PRN IV NAUSEA Last administered on 01/31/18at 15:14; Admin Dose 10 MG; Start 01/31/18 at 11:00 Escitalopram Oxalate (Lexapro) 10 mg DAILY PO Last administered on 02/02/18at 08:25; Admin Dose 10 MG; Start 01/31/18 at 11:30 Pantoprazole (Protonix Tab) 40 mg DAILY@06 PO Last administered on 02/02/18at 05:26; Admin Dose 40 MG; Start 02/01/18 at 12:00 Albumin Human 100 ml @ 100 mls/hr DURING DIALYSIS PRN IV BLOOD PRESSURE SUPPORT Last administered on 02/01/18at 19:12; Admin Dose 100 MLS/HR; Start 02/01/18 at 18:30 Heri Schaefer DO Feb 02, 2018 13:19
[2018-02-02 15:16] LABS: PTH CALCIUM 8.2 mg/dL (8.6-10.4)
[2018-02-02] MEDS: HYDROCODONE/APAP (10/325) TAB PO PRN (17:52)
--- NOTE | 2018-02-02 18:41 | NUR ---
RN NOTE PT WAS CALM WITH OCCASIONAL HALLUCINATIONS . HD FRO TOMORROW , CONFIRMATION NUMBER [id number] . PT REFUSED THE MRI AT THE TIME OF PATIENT SUPPORT PARTNER , PAGED DR HURST TO NOTIFY HIM , WAITING FOR CALL BACK .
[2018-02-02] MEDS: ATORVASTATIN 20 MG TAB PO SCH (21:15)
[2018-02-03] VITALS (23 sets, daily range): BP systolic 94–164; BP diastolic 44–107; PULSE 64–76; RESP 16–18
[2018-02-03] MEDS ORDERED: HALOPERIDOL 5 MG INJ IM ONE ×2 (01:30→02:00)
[2018-02-03] MEDS: ACCU-CHEK XX SCH (02:00)
[2018-02-03] MEDS: LEVOTHYROXINE 100 MCG TAB PO SCH (06:19)
[2018-02-03] MEDS: PANTOPRAZOLE (EC) 40 MG TAB PO SCH (06:19)
--- NOTE | 2018-02-03 07:00 | NUR ---
RN NOTES: PT HALLUCINATING, SAID "SEEING ANTS ALL OVER IN THE ROOM, BEHIND TV AND THE WALL, WANTED TO SPRAY OUT. SHE PICKED HOSPITAL PHONE AND WANTED TO CALL 911, WANTED TO GO HOME, GOT OUT OF BED AND WANDERING ON HALLWAY. ALL CHARGE NURSE, RN ANTE PARTUM, AND RN ASSIST PT BACK TO ROOM BUT PT WANTED TO SIT IN HALLWAY. PUT PT ON W/C. CALLED MD FOR MEDICATION TO CALM PT. VERIFIED DOSAGE OF HALDOL WITH MD AFTER SPOKE WITH ALLI/PHARMACIST. ORDERS HALDOL 5MG GIVEN IM X1 CARRIED OUT. PT STILL WAKE ALL NIGHT AND WANTED TO GET OUT OF BED. PUT PT IN W/C, NEXT TO NURSE STATION. CALLED MD IN AM FOR ORDER SITTER 1:1. FAXED THE ORDER. ENDORSED.
[2018-02-03] MEDS: INSULIN ASPART [NOVOLOG] 3 ML PEN SC SCH ×4 (07:55→20:43)
[2018-02-03] MEDS: SEVELAMER CARBONATE 2.4 GM PKT GTB SCH ×3 (07:55→17:55)
[2018-02-03] MEDS: METOPROLOL 25 MG TAB PO SCH ×2 (09:00→21:00)
[2018-02-03] MEDS: AMLODIPINE 5 MG TAB PO SCH (09:00)
[2018-02-03] MEDS: ISOSORBIDE MONONITRATE(SR)30 MG TAB PO SCH (09:00)
--- NOTE | 2018-02-03 09:34 | PN ---
Date/Time of Note Date/Time of Note DATE: 02/03/18 TIME: 09:27 Assessment/Plan VTE Prophylaxis Risk score (from Ns)>0 risk: 3 SCD applied (from Ns): Yes Pharmacological prophylaxis: LMWH Lines/Catheters IV Catheter Type (from Nrsg): Mid Line Urinary Cath still in place: No Assessment/Plan Problems: (1) Major depressive disorder, single episode, severe without psychotic features Status: Chronic Comment: She has started to have hallucinations and I have requested a [facility] consultation for this. This is actually been going on for a couple of days and our colleagues had placed her on Seroquel. She received a single dose of Haldol last night. According to her she is not having much issues however feel she needs to be on somewhat more medication management for which we are asking for professional consult (2) DM (diabetes mellitus), type 2 Status: Chronic Comment: Sugar control is adequate at the present time. 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 Recheck her labs. I do not believe that this or his treatment is accounting for her change in mental status and the hallucinations (4) End stage renal disease on dialysis due to type 2 diabetes mellitus Status: Chronic Comment: As per nephrology. She is on cinacalcet. (5) Essential (primary) hypertension Status: Chronic Comment: Adequate control (6) Secondary hyperparathyroidism of renal origin Status: Chronic Comment: Check labs now to make sure we do not need to adjust the Sensipar (7) Hyperlipidemia Status: Chronic Comment: Noted. Qualifiers: Hyperlipidemia type: pure hypercholesterolemia Qualified Codes: E78.00 - Pure hypercholesterolemia, unspecified (8) Pain in right leg Status: Acute Comment: Noted. Result Diagram: 02/03/18 0803 02/01/18 1419 Results 24hrs Laboratory Tests Test 02/02/18 12:19 02/02/18 17:04 02/02/18 21:12 02/03/18 08:00 Bedside Glucose 109 105 121 123 Test 02/03/18 08:03 White Blood 5.5 Count Red Blood Count 3.61 L Hemoglobin 10.8 L Hematocrit 34.9 L Mean Corpuscular 96.7 Volume Mean Corpuscular 29.9 Hemoglobin Mean Corpuscular 30.9 L Hemoglobin Nuha nt Red Cell 17.1 H Distribution Width Platelet Count 157 Mean Platelet 11.1 H Volume Immature 0.400 Granulocytes % Neutrophils % 65.0 Lymphocytes % 21.9 Monocytes % 11.3 H Eosinophils % 0.9 Basophils % 0.5 Nucleated Red 1.3 H Blood Cells % Immature 0.020 Granulocytes # Neutrophils # 3.6 Lymphocytes # 1.2 Monocytes # 0.6 Eosinophils # 0.1 Basophils # 0.0 Nucleated Red 0.1 H Blood Cells # Subjective 24 Hr Interval Summary Free Text/Dictation Please see the nurse's notes about the patient's overnight. At this time she states that she is feeling okay and hopes that this is over with. Constitutional: no complaints (No fevers chills or sweats) Eyes: no complaints Respiratory: no complaints Cardiovascular: no complaints Gastrointestinal: no complaints Genitourinary: no complaints Psychological: other (She denies any suicidal or homicidal ideation. At this time she denies any visual or auditory hallucinations. She did feel that there was something on her bed covers but in fact there was actually some length there which I cleaned up) Exam/Review of Systems Vital Signs Vitals Vital Signs Date Temp Pulse Resp B/P (MAP) Pulse Ox O2 O2 Flow FiO2 Time Delivery Rate 02/03/18 65 08:42 02/03/18 98.0 18 129/ 99 Room Air 08:00 Intake and Output 02/02/18 02/02/18 02/03/18 1515:00 23:00 07:00 IntakeIntake Total 250 ml BalanceBalance 250 ml Exam Constitutional: alert, oriented (Oriented to person she is oriented to place she is oriented to time.) Psych: depression (Complains of depression. Again denies hallucinations although I am not certain how much she is holding back) Neck: supple, non-tender Respiratory: clear to auscultation, normal air movement Cardiovascular: regular rate and rhythm, nl pulses Medications Medications Current Medications Acetaminophen (Tylenol Tab) 650 mg Q6H PRN PO MILD PAIN(1-3)OR ELEVATED TEMP Last administered on 01/31/18 00:19; Admin Dose 650 MG; Start 01/27/18 at 13:30 Amlodipine Besylate (Norvasc) 5 mg DAILY PO Last administered on 02/01/18 07:55; Admin Dose 5 MG; Start 01/27/18 at 21:00 Atorvastatin Calcium (Lipitor) 20 mg HS PO Last administered on 02/02/18 21:15; Admin Dose 20 MG; Start 01/27/18 at 21:00 Clopidogrel Bisulfate (plaVIX) 75 mg DAILY PO Last administered on 02/02/18 08:25; Admin Dose 75 MG; Start 01/27/18 at 21:00 Acetaminophen/ Hydrocodone Bitart ([place] (10/325)) 2 tab Q6H PRN PO MODERATE PAIN LEVEL 4-6 Last administered on 02/02/18 17:52; Admin Dose 2 TAB; Start 01/27/18 at 13:30 Isosorbide Mononitrate (Imdur) 30 mg DAILY PO Last administered on 02/01/18 07:55; Admin Dose 30 MG; Start 01/28/18 at 21:00 Famotidine (Pepcid) 10 mg DAILY PO Last administered on 02/02/18 08:25; Admin Dose 10 MG; Start 01/27/18 at 21:00 Diagnostic Test (Pha) (Accu-Chek) 1 ea 02 XX Last administered on 02/01/18 02:00; Admin Dose 1 EA; Start 01/28/18 at 02:00 Insulin Aspart (Novolog Insulin Pen) NOVOLOG *MILD* ALGORITHM WITH MEALS BEDTIME SC Last administered on 01/29/18 11:43; Admin Dose 1 UNIT; Start 01/27/18 at 17:35 Metoprolol Tartrate (Lopressor) 25 mg BID PO Last administered on 02/02/18 21:15; Admin Dose 25 MG; Start 01/27/18 at 21:00 Ranolazine (Ranexa) 500 mg Q12 PO Last administered on 02/02/18 21:14; Admin Dose 500 MG; Start 01/27/18 at 21:00 Zolpidem Tartrate (Ambien) 5 mg HS MAY REPEAT X 1 PRN PO INSOMNIA; Start 01/27/18 at 13:30 Diphenhydramine HCl (Benadryl) 25 mg Q6H PRN IV ITCHING Last administered on 01/30/18at 08:10; Admin Dose 25 MG; Start 01/27/18 at 14:30 Epoetin Geo (Epogen (Esrd)) 8,000 units AFTER DIALYSIS SC Last administered on 01/28/18at 15:11; Admin Dose 8,000 UNITS; Start 01/28/18 at 08:00 Levothyroxine Sodium (Synthroid) 225 mcg DAILY@06 PO Last administered on 02/03/18at 06:19; Admin Dose 225 MCG; Start 01/29/18 at 06:00 Aspirin (Aspirin) 81 mg DAILY PO Last administered on 02/02/18at 08:25; Admin Dose 81 MG; Start 01/28/18 at 13:00 Miscellaneous Information 1 ea NOTE XX ; Start 01/28/18 at 14:00 Glucose (Glutose) 15 gm Q15M PRN PO DECREASED GLUCOSE; Start 01/28/18 at 14:00 Glucose (Glutose) 22.5 gm Q15M PRN PO DECREASED GLUCOSE; Start 01/28/18 at 14:00 Dextrose (D50w Syringe) 25 ml Q15M PRN IV DECREASED GLUCOSE; Start 01/28/18 at 14:00 Dextrose (D50w Syringe) 50 ml Q15M PRN IV DECREASED GLUCOSE; Start 01/28/18 at 14:00 Glucagon (Glucagen) 1 mg Q15M PRN IM DECREASED GLUCOSE; Start 01/28/18 at 14:00 Glucose (Glutose) 15 gm Q15M PRN BUCCAL DECREASED GLUCOSE; Start 01/28/18 at 14:00 Sevelamer Carbonate (Renvela) 2.4 gm WITH MEALS GTB Last administered on 02/02/18at 17:55; Admin Dose 2.4 GM; Start 01/29/18 at 11:30 Cinacalcet (Sensipar) 60 mg WITH BREAKFAST PO Last administered on 02/02/18at 08:26; Admin Dose 60 MG; Start 01/30/18 at 09:00 Ondansetron HCl (Zofran Inj) 4 mg Q4H PRN IV NAUSEA AND/OR VOMITING Last administered on 01/31/18at 15:14; Admin Dose 4 MG; Start 01/30/18 at 20:30 Metoclopramide HCl (Reglan) 10 mg Q6H PRN IV NAUSEA Last administered on 01/31/18at 15:14; Admin Dose 10 MG; Start 01/31/18 at 11:00 Escitalopram Oxalate (Lexapro) 10 mg DAILY PO Last administered on 02/02/18at 08:25; Admin Dose 10 MG; Start 01/31/18 at 11:30 Pantoprazole (Protonix Tab) 40 mg DAILY@06 PO Last administered on 02/03/18at 0 6:19; Admin Dose 40 MG; Start 02/01/18 at 12:00 Albumin Human 100 ml @ 100 mls/hr DURING DIALYSIS PRN IV BLOOD PRESSURE SUPPORT Last administered on 02/01/18at 19:12; Admin Dose 100 MLS/HR; Start 02/01/18 at 18:30 MARGARITO VIVAR MD Feb 03, 2018 09:34
[2018-02-03] MEDS: ESCITALOPRAM 10 MG TAB PO SCH (09:44)
[2018-02-03] MEDS: CINACALCET 30 MG TAB PO SCH (09:44)
[2018-02-03] MEDS: ASPIRIN 81 MG TAB PO SCH (09:44)
[2018-02-03] MEDS: CLOPIDOGREL 75 MG TAB PO SCH (09:44)
[2018-02-03] MEDS: FAMOTIDINE 20 MG TAB PO SCH (09:44)
[2018-02-03] MEDS: RANOLAZINE (SR) 500 MG TAB PO SCH ×2 (09:44→21:00)
--- NOTE | 2018-02-03 09:54 | CONS ---
Date/Time of Note Date/Time of Note DATE: 02/03/18 TIME: 09:53 Consult Date/Type/Reason Admit Date/Time Jan 27, 2018 at 04:03 Initial Consult Date Subjective cardiology f/u note Subjective: Discussed with staff and rhythm was reviewed. Patient remained sinus rhythm. Patient complains of back pain to me but no chest pain or pressure no palpitation. Patient is on hemodialysis now denies shortness of breath to me Objective: General: no acute distress HEENT: NC/AT. pupils are equal. round. NECK: NO JVD. no stridor. CV: RRR. systolic murmur; no gallop or rubs. PULM: no wheezing or rhonchi. GI: SOFT, NT, ND, no rebound or guarding Extremity: trace B/L LE edema. no clubbing. neuro: awake and alert, response appropriately Psych: calm and pleasant rectal: deferred Objective Vital Signs Date Temp Pulse Resp B/P (MAP) Pulse Ox O2 O2 Flow FiO2 Time Delivery Rate 02/03/18 65 08:42 02/03/18 98.0 18 129/65 99 Room Air 08:00 (86) Intake and Output 02/02/18 02/02/18 02/03/18 1515:00 23:00 07:00 IntakeIntake Total 250 ml BalanceBalance 250 ml Results/Medications Result Diagram: 02/03/18 0803 02/03/18 0803 Results 24 hrs Laboratory Tests Test 02/02/18 12:19 02/02/18 17:04 02/02/18 21:12 02/03/18 08:00 Bedside Glucose 109 105 121 123 Test 02/03/18 08:03 White Blood 5.5 Count Red Blood Count 3.61 L Hemoglobin 10.8 L Hematocrit 34.9 L Mean Corpuscular 96.7 Volume Mean Corpuscular 29.9 Hemoglobin Mean Corpuscular 30.9 L Hemoglobin Nuha nt Red Cell 17.1 H Distribution Width Platelet Count 157 Mean Platelet 11.1 H Volume Immature 0.400 Granulocytes % Neutrophils % 65.0 Lymphocytes % 21.9 Monocytes % 11.3 H Eosinophils % 0.9 Basophils % 0.5 Nucleated Red 1.3 H Blood Cells % Immature 0.020 Granulocytes # Neutrophils # 3.6 Lymphocytes # 1.2 Monocytes # 0.6 Eosinophils # 0.1 Basophils # 0.0 Nucleated Red 0.1 H Blood Cells # Sodium Level 143 Potassium Level 5.1 Chloride Level 97 Carbon Dioxide 26 Level Anion Gap 20 H Blood Urea 33 #H Nitrogen Creatinine 6.89 H Est Glomerular 8 L Filtrat Rate mL/min Glucose Level 127 Calcium Level 6.9 L Total Bilirubin 0.1 L Direct Bilirubin 0.00 Indirect 0.1 Bilirubin Aspartate Amino 437 H Transf (AST/SGOT ) Alanine 470 H Aminotransferase (ALT/SGPT) Alkaline 283 H Phosphatase Total Protein 7.9 Albumin 4.3 Globulin 3.60 H Albumin/Globulin 1.19 Ratio Medications Current Medications Acetaminophen (Tylenol Tab) 650 mg Q6H PRN PO MILD PAIN(1-3)OR ELEVATED TEMP Last administered on 01/31/18 00:19; Admin Dose 650 MG; Start 01/27/18 at 13:30 Amlodipine Besylate (Norvasc) 5 mg DAILY PO Last administered on 02/01/18 07:55; Admin Dose 5 MG; Start 01/27/18 at 21:00 Atorvastatin Calcium (Lipitor) 20 mg HS PO Last administered on 02/02/18 21:15; Admin Dose 20 MG; Start 01/27/18 at 21:00 Clopidogrel Bisulfate (plaVIX) 75 mg DAILY PO Last administered on 02/03/18 09:44; Admin Dose 75 MG; Start 01/27/18 at 21:00 Acetaminophen/ Hydrocodone Bitart ([place] (10/325)) 2 tab Q6H PRN PO MODERATE P AIN LEVEL 4-6 Last administered on 02/02/18 17:52; Admin Dose 2 TAB; Start 01/27/18 at 13:30 Isosorbide Mononitrate (Imdur) 30 mg DAILY PO Last administered on 02/01/18 07:55; Admin Dose 30 MG; Start 01/28/18 at 21:00 Famotidine (Pepcid) 10 mg DAILY PO Last administered on 02/03/18 09:44; Admin Dose 10 MG; Start 01/27/18 at 21:00 Diagnostic Test (Pha) (Accu-Chek) 1 ea 02 XX Last administered on 02/01/18 02:00; Admin Dose 1 EA; Start 01/28/18 at 02:00 Insulin Aspart (Novolog Insulin Pen) NOVOLOG *MILD* ALGORITHM WITH MEALS BEDTIME SC Last administered on 01/29/18at 11:43; Admin Dose 1 UNIT; Start 01/27/18 at 17:35 Metoprolol Tartrate (Lopressor) 25 mg BID PO Last administered on 02/02/18at 21:15; Admin Dose 25 MG; Start 01/27/18 at 21:00 Ranolazine (Ranexa) 500 mg Q12 PO Last administered on 02/03/18at 09:44; Admin Dose 500 MG; Start 01/27/18 at 21:00 Zolpidem Tartrate (Ambien) 5 mg HS MAY REPEAT X 1 PRN PO INSOMNIA; Start 01/27/18 at 13:30 Diphenhydramine HCl (Benadryl) 25 mg Q6H PRN IV ITCHING Last administered on 01/30/18at 08:10; Admin Dose 25 MG; Start 01/27/18 at 14:30 Epoetin Geo (Epogen (Esrd)) 8,000 units AFTER DIALYSIS SC Last administered on 01/28/18at 15:11; Admin Dose 8,000 UNITS; Start 01/28/18 at 08:00 Levothyroxine Sodium (Synthroid) 225 mcg DAILY@06 PO Last administered on 02/03/18at 06:19; Admin Dose 225 MCG; Start 01/29/18 at 06:00 Aspirin (Aspirin) 81 mg DAILY PO Last administered on 02/03/18at 09:44; Admin Dose 81 MG; Start 01/28/18 at 13:00 Miscellaneous Information 1 ea NOTE XX ; Start 01/28/18 at 14:00 Glucose (Glutose) 15 gm Q15M PRN PO DECREASED GLUCOSE; Start 01/28/18 at 14:00 Glucose (Glutose) 22.5 gm Q15M PRN PO DECREASED GLUCOSE; Start 01/28/18 at 14:00 Dextrose (D50w Syringe) 25 ml Q15M PRN IV DECREASED GLUCOSE; Start 01/28/18 at 14:00 Dextrose (D50w Syringe) 50 ml Q15M PRN IV DECREASED GLUCOSE; Start 01/28/18 at 14:00 Glucagon (Glucagen) 1 mg Q15M PRN IM DECREASED GLUCOSE; Start 01/28/18 at 14:00 Glucose (Glutose) 15 gm Q15M PRN BUCCAL DECREASED GLUCOSE; Start 01/28/18 at 14:00 Sevelamer Carbonate (Renvela) 2.4 gm WITH MEALS GTB Last administered on 02/02/18 17:55; Admin Dose 2.4 GM; Start 01/29/18 at 11:30 Cinacalcet (Sensipar) 60 mg WITH BREAKFAST PO Last administered on 02/03/18 09:44; Admin Dose 60 MG; Start 01/30/18 at 09:00 Ondansetron HCl (Zofran Inj) 4 mg Q4H PRN IV NAUSEA AND/OR VOMITING Last administered on 01/31/18 15:14; Admin Dose 4 MG; Start 01/30/18 at 20:30 Metoclopramide HCl (Reglan) 10 mg Q6H PRN IV NAUSEA Last administered on 01/31/18 15:14; Admin Dose 10 MG; Start 01/31/18 at 11:00 Escitalopram Oxalate (Lexapro) 10 mg DAILY PO Last administered on 02/03/18 09:44; Admin Dose 10 MG; Start 01/31/18 at 11:30 Pantoprazole (Protonix Tab) 40 mg DAILY@06 PO Last administered on 02/03/18 06:19; Admin Dose 40 MG; Start 02/01/18 at 12:00 Albumin Human 100 ml @ 100 mls/hr DURING DIALYSIS PRN IV BLOOD PRESSURE SUPPORT Last administered on 02/01/18 19:12; Admin Dose 100 MLS/HR; Start 02/01/18 at 18:30 Assessment/Plan Chief Complaint/Hosp Course Shortness of breath likely secondary to volume overload from missed hemodialysis; improved now End-stage renal disease on hemodialysis Hyperkalemia CAD with history of PCI Hypertension Diabetes Dyslipidemia Chest pain: Has resolved now Recommendations: Continue with current cardiac care including aggressive medical therapy with aspirin Plavix beta-blockers Hemodialysis as per renal Patient is awaiting outpatient PCI of her chronic total occlusion Fluid management through hemodialysis Thank you for his referral. We will continue to follow along with you until Dr. Damari BERNABE MD [facility] YESI BERNABE MD Feb 03, 2018 09:54
--- NOTE | 2018-02-03 10:33 | NUR ---
SW: PSYCH CONSULT SW met with this 52-year-old [place]ese speaking female at bedside, per Dr. Mondragon's request. Per MD, patient having hallucinations of a man in the room with intent to hurt her. SW met with patient at bedside. Patient was having dialysis at time of this interview. Patient admits to seeing a person in the room with a knife. States that she also hears him speak. States that she sees and hears this man frequently. Patient receptive to psych consult, per MD's recommendation. LIZA put telepsych machine in the room, and community advocate Lilian calling in for consult. SW remains available as needed throughout patient's treatment process.
--- NOTE | 2018-02-03 11:00 | PSY ---
Date/Time of Note Date/Time of Note DATE: 02/03/18 TIME: 10:54 Psychiatric Subjective Eval Subjective Evaluation Patient location: inpatient Chief Complaint: BIB SELF, CC: MISSED 2 DIALYSIS SESSIONS THIS WEEK, JACK. LEG SWEL History of present illness report received from CORRIE Bernard. Pt is 52 yo single disabled female wtih ESRD admitted due to hyperkalemia. Pt was hallucinating last night. pt is calm, cooperative; she denies AH or Vh now; she denies paranoia. Last night she was seeing ants and people in the room, was paranoid people will hurt her. She denies it now; she admits to feeling depressed "sometimes" but denies feeling hopeless and helpless; she reprots insomnia nad poor appetite. She denies past or current treatment. She denies anger outbursts or miriam. Per chart pt was started on lexapro 10 mg poqd. Past psychiatric history pt denies Hospitalization: no Family History denies Medical history Problems Medical Problems: (1) Abdominal pain Status: Acute (2) Acute bronchitis Status: Acute (3) Acute colitis Status: Acute (4) Acute colitis Onset: ~ 10/2014 Status: Acute (5) Acute exacerbation of chronic low back pain Status: Acute (6) Atherosclerotic heart disease of [place] coronary artery without angina pectoris Status: Chronic (7) Back pain Status: Acute (8) Bilateral sacroiliitis Status: Acute (9) Chest pain Status: Acute (10) Chest pain Status: Acute (11) Closed head injury Status: Acute (12) Cough Status: Acute (13) Cough Status: Acute (14) Diarrhea Status: Acute (15) Dizziness Status: Acute (16) DM (diabetes mellitus), type 2 Status: Chronic (17) End stage kidney disease Onset: ~ 10/2009 Status: Acute (18) End stage renal disease on dialysis due to type 2 diabetes mellitus Status: Chronic (19) Essential (primary) hypertension Status: Chronic (20) Fluid overload Status: Acute (21) Headache Status: Acute (22) Hematemesis Status: Acute (23) Hiatal hernia with GERD Status: Chronic (24) Hyperkalemia Status: Acute (25) Hyperlipidemia Status: Chronic (26) Hypertension Status: Acute (27) Injury of back Status: Acute (28) Major depressive disorder, single episode, severe without psychotic features Status: Chronic (29) Nausea Status: Acute (30) Noncompliance of patient with renal dialysis Status: Acute (31) Old myocardial infarction Status: Chronic (32) Pain in right leg Status: Acute (33) Papillary thyroid carcinoma Onset: ~ 02/2013 Status: Chronic (34) Secondary hyperparathyroidism of renal origin Status: Chronic (35) Sore throat Status: Acute (36) STEMI (ST elevation myocardial infarction) Status: Acute (37) STEMI (ST elevation myocardial infarction) Status: Acute (38) Stroke Status: Acute (39) Swelling Status: Acute Allergies: Coded Allergies: No Known Drug Allergies (Unverified Allergy, Unknown, 01/27/18) Substance Abuse Substance use: No known substance abuse Social History Marital status: single Level of education: 10th grade Occupation/Half-Way: disabled Psychiatric Objective Eval Review of Systems: Review of Systems: Not Applicable Physical Examination: Physical Examination: Not Applicable Sleep: Insomnia Appetite: Decreased Energy: Decreased Interest: Decreased Mental Status Examination: Appearance: Groomed Eye Contact: Good Psychomotor Activity: Normal Behavior: Cooperative Speech: Clear AFFECT: Appropriate Mood: Depressed Though Process: Linear Thought Content: Normal Suicidal: No Homicidal: No On 72 hour hold: No Orientation: x4 Cognition: Alert Insight: Impared Judgement: Intact Laboratory Results Laboratory Tests Test 02/01/18 12:07 02/01/18 14:19 02/01/18 17:34 02/01/18 21:05 Bedside Glucose 135 mg/dL 121 mg/dL 102 mg/dL White Blood 4.7 10^3/ul Count Red Blood Count 3.54 10^6/ul Hemoglobin 10.2 g/dl Hematocrit 33.4 % Mean Corpuscular 94.4 fl Volume Mean Corpuscular 28.8 pg Hemoglobin Mean Corpuscular 30.5 g/dl Hemoglobin Nuha nt Red Cell 16.4 % Distribution Width Platelet Count 176 10^3/UL Mean Platelet 11.0 fl Volume Immature 0.200 % Granulocytes % Neutrophils % 55.1 % Lymphocytes % 29.0 % Monocytes % 12.7 % Eosinophils % 2.4 % Basophils % 0.6 % Nucleated Red 0.0 /100WBC Blood Cells % Immature 0.010 10^3/ul Granulocytes # Neutrophils # 2.6 10^3/ul Lymphocytes # 1.4 10^3/ul Monocytes # 0.6 10^3/ul Eosinophils # 0.1 10^3/ul Basophils # 0.0 10^3/ul Nucleated Red 0.0 10^3/ul Blood Cells # Sodium Level 138 mmol/L Potassium Level 6.4 mmol/L Chloride Level 96 mmol/L Carbon Dioxide 26 mmol/L Level Anion Gap 16 Blood Urea 45 mg/dl Nitrogen Creatinine 8.09 mg/dl Est Glomerular 6 mL/min Filtrat Rate mL/min Glucose Level 119 mg/dl Calcium Level 7.2 mg/dl Phosphorus Level 7.3 mg/dl Magnesium Level 1.9 mg/dl Test 02/02/18 07:50 02/02/18 12:19 02/02/18 17:04 02/02/18 21:12 Bedside Glucose 116 mg/dL 109 mg/dL 105 mg/dL 121 mg/dL Test 02/03/18 08:00 02/03/18 08:03 Bedside Glucose 123 mg/dL White Blood 5.5 10^3/ul Count Red Blood Count 3.61 10^6/ul Hemoglobin 10.8 g/dl Hematocrit 34.9 % Mean Corpuscular 96.7 fl Volume Mean Corpuscular 29.9 pg Hemoglobin Mean Corpuscular 30.9 g/dl Hemoglobin Nuha nt Red Cell 17.1 % Distribution Width Platelet Count 157 10^3/UL Mean Platelet 11.1 fl Volume Immature 0.400 % Granulocytes % Neutrophils % 65.0 % Lymphocytes % 21.9 % Monocytes % 11.3 % Eosinophils % 0.9 % Basophils % 0.5 % Nucleated Red 1.3 /100WBC Blood Cells % Immature 0.020 10^3/ul Granulocytes # Neutrophils # 3.6 10^3/ul Lymphocytes # 1.2 10^3/ul Monocytes # 0.6 10^3/ul Eosinophils # 0.1 10^3/ul Basophils # 0.0 10^3/ul Nucleated Red 0.1 10^3/ul Blood Cells # Sodium Level 143 mmol/L Potassium Level 5.1 mmol/L Chloride Level 97 mmol/L Carbon Dioxide 26 mmol/L Level Anion Gap 20 Blood Urea 33 mg/dl Nitrogen Creatinine 6.89 mg/dl Est Glomerular 8 mL/min Filtrat Rate mL/min Glucose Level 127 mg/dl Calcium Level 6.9 mg/dl Total Bilirubin 0.1 mg/dl Direct Bilirubin 0.00 mg/dl Indirect 0.1 mg/dl Bilirubin Aspartate Amino 437 IU/L Transf (AST/SGOT ) Alanine 470 IU/L Aminotransferase (ALT/SGPT) Alkaline 283 IU/L Phosphatase Total Protein 7.9 g/dl Albumin 4.3 g/dl Globulin 3.60 g/dl Albumin/Globulin 1.19 Ratio Assessment and Plan Assessment/Diagnosis Diagnosis Delirium, multifactorial. Unspecified depressive disorder. Recommendation/Plan Medication Management For hallucinations: Haldol 1-2 mg po/im prn q 8 hrs. Consider Remeron 7.5 mg poqhs for depression, insomnia; increase to 15 mg poqhs if no overt AM sedation. Discharge Disposition: Community (home) Legal Status: Voluntary BRUNILDA PIMENTEL MD Feb 03, 2018 11:00
--- NOTE | 2018-02-03 11:49 | PN ---
DATE: 02/03/2018 SUBJECTIVE: The patient remains markedly confused. No other events noted overnight. No hemoptysis, hematemesis, hematochezia. OBJECTIVE: VITAL SIGNS: Blood pressure is 198/52, respiration 18, pulse 66, temperature 98.0. HEENT: Head is normocephalic. NECK: Supple. HEART: Regular rate. LUNGS: Show diminished breath sounds at the base. ABDOMEN: Soft, nontender to palpation without rebound or guarding. EXTREMITIES: Negative for clubbing, cyanosis, no edema. DERMATOLOGIC: No rashes. MUSCULOSKELETAL: No joint effusion. NEUROLOGIC: No change in exam. MEDICATIONS: Have been reviewed. LABORATORY DATA: Has been reviewed. ASSESSMENT AND PLAN: 1. End-stage renal disease. The patient is scheduled for dialysis today. Will dialyze 3 hours 2k b ath, calcium 2.5. 2. Hyperkalemia. Continue dialysis and low potassium bath. 3. Anemia. Monitor hemoglobin and hematocrit levels. 4. Mineral bone disorder, monitor calcium and phosphorus levels. 5. Acute encephalopathy, etiology unclear, toxic metabolic, questionable CVA. Patient currently has a sitter. Continue to monitor. Consider MRI or CT scan. 6. Diabetes. Continue current insulin regimen. Dictated By: HARVEY LUCIO DO NR/NTS Conf#: [id number] DID#: [id number] CC: KEZIA COLBERT MD; KISHORE HURST MD;*EndCC*
--- NOTE | 2018-02-03 13:20 | NUR ---
RN NOTES: Pt c/o chest pain, described by pt as crushing sensation, 10/10 pain level. VS stable. Called Dr. Mondragon, 12 lead-EKG was done, no abnormal findings. MD aware. Pt is more calm at this time, telepsych done; notified MD of recommendations. Pt's 1:1 sitter discontinued. Will continue to monitor pt.
[2018-02-03] MEDS ORDERED: HALOPERIDOL 1 MG TAB PO PRN (16:00)
[2018-02-03] MEDS: MIRTAZAPINE 15 MG TAB PO SCH (18:06)
--- NOTE | 2018-02-03 19:02 | NUR ---
EOSS: Pt laying in bed comfortably, sitter discontinued, pt more calm and cooperative today, s/p HD, 1500 out. VS stable, denies pain. Pt had telepsych done today, recommendations reported to Dr. Mondragon and orders placed. Pt's son at bedside and instructed on fall precautions ant to call for help, voiced understanding. All needs attended, will endorse to oncoming shift accordingly.
[2018-02-03] MEDS: ATORVASTATIN 20 MG TAB PO SCH (21:00)
[2018-02-03] MEDS: HALOPERIDOL 1 MG TAB PO SCH (21:00)
[2018-02-04] VITALS (10 sets, daily range): BP systolic 95–150; BP diastolic 54–78; PULSE 60–77; RESP 17–19
[2018-02-04] MEDS: ACCU-CHEK XX SCH (02:00)
[2018-02-04] MEDS: LEVOTHYROXINE 100 MCG TAB PO SCH (05:47)
[2018-02-04] MEDS: PANTOPRAZOLE (EC) 40 MG TAB PO SCH (05:47)
--- NOTE | 2018-02-04 07:00 | NUR ---
RN NOTES: PT STARTED SLEEP AT 1999. UNABLE TO GIVE MEDS SCHEDULED AT 2100. SON STAYED OVER NIGHT, TRIED TO GIVE HER DINNER TRAY. BUT PT HAD A GOOD SLEEP ALL NIGHT. WOKE UP AT 0600 AND TOOK MEDICATION AT THIS TIME. VS STABLE. NO C/O PAIN. ON ROOM AIR. ENDORSED.
[2018-02-04] MEDS: INSULIN ASPART [NOVOLOG] 3 ML PEN SC SCH ×4 (07:55→20:53)
[2018-02-04] MEDS: SEVELAMER CARBONATE 2.4 GM PKT GTB SCH ×3 (07:55→17:56)
--- NOTE | 2018-02-04 08:27 | PN ---
Date/Time of Note Date/Time of Note DATE: 02/04/18 TIME: 08:19 Assessment/Plan VTE Prophylaxis Risk score (from Ns)>0 risk: 3 SCD applied (from Nsg): Yes Pharmacological prophylaxis: other (plavix) Lines/Catheters IV Catheter Type (from Nrs): Mid Line Urinary Cath still in place: No Assessment/Plan Hospital Course patient received for dialysis scheduled for second one today will transfer to telemetry when stable Assessment/Plan patient lethargic this am brain imaging still pending await neurology consultation. repeat LFT's may need acute hepatitis panel,patient sedated overnight .being followed by cardiology.Psychiatry consult appreciated. Result Diagram: 02/03/18 1402 02/03/18 1402 Results 24hrs Laboratory Tests Test 02/03/18 11:43 02/03/18 14:02 02/03/18 17:08 02/03/18 20:42 Bedside Glucose 97 89 101 White Blood 4.1 #L Count Red Blood Count 3.62 L Hemoglobin 10.7 L Hematocrit 34.7 L Mean Corpuscular 95.9 Volume Mean Corpuscular 29.6 Hemoglobin Mean Corpuscular 30.8 L Hemoglobin Nuha nt Red Cell 17.0 H Distribution Width Platelet Count 146 Mean Platelet 11.0 H Volume Immature 0.200 Granulocytes % Neutrophils % 65.9 Lymphocytes % 19.4 Monocytes % 11.9 H Eosinophils % 1.9 Basophils % 0.7 Nucleated Red 1.0 H Blood Cells % Immature 0.010 Granulocytes # Neutrophils # 2.7 Lymphocytes # 0.8 Monocytes # 0.5 Eosinophils # 0.1 Basophils # 0.0 Nucleated Red 0.0 Blood Cells # Sodium Level 144 Potassium Level 3.9 Chloride Level 98 Carbon Dioxide 30 Level Anion Gap 16 H Blood Urea 14 # Nitrogen Creatinine 3.44 #H Est Glomerular 17 L Filtrat Rate mL/min Glucose Level 91 Calcium Level 8.9 Ionized Calcium 1.1 (Measured) Phosphorus Level 3.5 # Total Bilirubin 0.3 Direct Bilirubin 0.00 Indirect 0.3 Bilirubin Aspartate Amino 363 H Transf (AST/SGOT ) Alanine 461 H Aminotransferase (ALT/SGPT) Alkaline 328 H Phosphatase Total Protein 7.8 Albumin 4.2 Globulin 3.60 H Albumin/Globulin 1.16 Ratio Thyroid 5.510 H Stimulating Hormone (TSH) Test 02/04/18 08:04 Bedside Glucose 69 L Subjective 24 Hr Interval Summary Constitutional: other (sleepy) Eyes: no complaints ENT: no complaints Respiratory: no complaints Cardiovascular: no complaints Gastrointestinal: no complaints Genitourinary: no complaints Musculoskeletal: no complaints Skin: no complaints Neurologic: no complaints Endocrine: no complaints Psychological: confusion, depression Exam/Review of Systems Vital Signs Vitals Vital Signs Date Temp Pulse Resp B/P (MAP) Pulse Ox O2 O2 Flow FiO2 Time Delivery Rate 02/04/18 97.8 68 18 144/78 97 07:34 (100) 02/03/18 Room Air 09:40 Intake and Output 02/03/18 02/03/18 02/04/18 1515:00 23:00 07:00 IntakeIntake Total 400 ml 250 ml OutputOutput Total 2100 ml BalanceBalance -2100 ml 400 ml 250 ml Exam Constitutional: other (lethargic rousable) Psych: depression, other (confused and hallucinating yesterday) Head: normocephalic Eyes: nl conjunctiva ENMT: nl external ears & nose Neck: supple Respiratory: clear to auscultation Cardiovascular: regular rate and rhythm Musculoskeletal: nl extremities to inspection Medications Medications Current Medications Acetaminophen (Tylenol Tab) 650 mg Q6H PRN PO MILD PAIN(1-3)OR ELEVATED TEMP Last administered on 01/31/18at 00:19; Admin Dose 650 MG; Start 01/27/18 at 13:30 Amlodipine Besylate (Norvasc) 5 mg DAILY PO Last administered on 02/01/18 07:55; Admin Dose 5 MG; Start 01/27/18 at 21:00 Atorvastatin Calcium (Lipitor) 20 mg HS PO Last administered on 02/02/18at 21:15; Admin Dose 20 MG; Start 01/27/18 at 21:00 Clopidogrel Bisulfate (plaVIX) 75 mg DAILY PO Last administered on 02/03/18at 09:44; Admin Dose 75 MG; Start 01/27/18 at 21:00 Acetaminophen/ Hydrocodone Bitart (Lane (10/325)) 2 tab Q6H PRN PO MODERATE P AIN LEVEL 4-6 Last administered on 02/02/18 17:52; Admin Dose 2 TAB; Start 01/27/18 at 13:30 Isosorbide Mononitrate (Imdur) 30 mg DAILY PO Last administered on 02/01/18 07:55; Admin Dose 30 MG; Start 01/28/18 at 21:00 Famotidine (Pepcid) 10 mg DAILY PO Last administered on 02/03/18 09:44; Admin Dose 10 MG; Start 01/27/18 at 21:00 Diagnostic Test (Pha) (Accu-Chek) 1 ea 02 XX Last administered on 02/01/18 02:00; Admin Dose 1 EA; Start 01/28/18 at 02:00 Insulin Aspart (Novolog Insulin Pen) NOVOLOG *MILD* ALGORITHM WITH MEALS BEDTIME SC Last administered on 01/29/18 11:43; Admin Dose 1 UNIT; Start 01/27/18 at 17:35 Metoprolol Tartrate (Lopressor) 25 mg BID PO Last administered on 02/02/18 21:15; Admin Dose 25 MG; Start 01/27/18 at 21:00 Ranolazine (Ranexa) 500 mg Q12 PO Last administered on 02/03/18 09:44; Admin Dose 500 MG; Start 01/27/18 at 21:00 Zolpidem Tartrate (Ambien) 5 mg HS MAY REPEAT X 1 PRN PO INSOMNIA; Start 01/27/18 at 13:30 Diphenhydramine HCl (Benadryl) 25 mg Q6H PRN IV ITCHING Last administered on 01/30/18at 08:10; Admin Dose 25 MG; Start 01/27/18 at 14:30 Epoetin Geo (Epogen (Esrd)) 8,000 units AFTER DIALYSIS SC Last administered on 01/28/18at 15:11; Admin Dose 8,000 UNITS; Start 01/28/18 at 08:00 Levothyroxine Sodium (Synthroid) 225 mcg DAILY@06 PO Last administered on 02/04/18at 05:47; Admin Dose 225 MCG; Start 01/29/18 at 06:00 Aspirin (Aspirin) 81 mg DAILY PO Last administered on 02/03/18 09:44; Admin Dose 81 MG; Start 01/28/18 at 13:00 Miscellaneous Information 1 ea NOTE XX ; Start 01/28/18 at 14:00 Glucose (Glutose) 15 gm Q15M PRN PO DECREASED GLUCOSE; Start 01/28/18 at 14:00 Glucose (Glutose) 22.5 gm Q15M PRN PO DECREASED GLUCOSE; Start 01/28/18 at 14:00 Dextrose (D50w Syringe) 25 ml Q15M PRN IV DECREASED GLUCOSE; Start 01/28/18 at 14:00 Dextrose (D50w Syringe) 50 ml Q15M PRN IV DECREASED GLUCOSE; Start 01/28/18 at 14:00 Glucagon (Glucagen) 1 mg Q15M PRN IM DECREASED GLUCOSE; Start 01/28/18 at 14:00 Glucose (Glutose) 15 gm Q15M PRN BUCCAL DECREASED GLUCOSE; Start 01/28/18 at 14:00 Sevelamer Carbonate (Renvela) 2.4 gm WITH MEALS GTB Last administered on 02/03/18at 14:06; Admin Dose 2.4 GM; Start 01/29/18 at 11:30 Cinacalcet (Sensipar) 60 mg WITH BREAKFAST PO Last administered on 02/03/18at 09:44; Admin Dose 60 MG; Start 01/30/18 at 09:00 Ondansetron HCl (Zofran Inj) 4 mg Q4H PRN IV NAUSEA AND/OR VOMITING Last administered on 01/31/18at 15:14; Admin Dose 4 MG; Start 01/30/18 at 20:30 Metoclopramide HCl (Reglan) 10 mg Q6H PRN IV NAUSEA Last administered on 01/31/18at 15:14; Admin Dose 10 MG; Start 01/31/18 at 11:00 Escitalopram Oxalate (Lexapro) 10 mg DAILY PO Last administered on 02/03/18at 09:44; Admin Dose 10 MG; Start 01/31/18 at 11:30 Pantoprazole (Protonix Tab) 40 mg DAILY@06 PO Last administered on 02/04/18at 05:47; Admin Dose 40 MG; Start 02/01/18 at 12:00 Albumin Human 100 ml @ 100 mls/hr DURING DIALYSIS PRN IV BLOOD PRESSURE SUPPORT Last administered on 02/01/18at 19:12; Admin Dose 100 MLS/HR; Start 02/01/18 at 18:30 Haloperidol (Haldol) 2 mg Q6H PRN PO Hallucination; Start 02/03/18 at 16:00 Mirtazapine (Remeron) 7.5 mg PC DINNER PO ; Start 02/03/18 at 18:55 Haloperidol (Haldol) 2 mg QHS PO ; Start 02/03/18 at 21:00 KISHORE HURST MD Feb 04, 2018 08:27
[2018-02-04] MEDS: METOPROLOL 25 MG TAB PO SCH ×2 (09:41→20:52)
[2018-02-04] MEDS: ISOSORBIDE MONONITRATE(SR)30 MG TAB PO SCH (09:41)
[2018-02-04] MEDS: RANOLAZINE (SR) 500 MG TAB PO SCH ×2 (09:42→20:51)
[2018-02-04] MEDS: ESCITALOPRAM 10 MG TAB PO SCH (09:42)
[2018-02-04] MEDS: CINACALCET 30 MG TAB PO SCH (09:42)
[2018-02-04] MEDS: AMLODIPINE 5 MG TAB PO SCH (09:42)
[2018-02-04] MEDS: CLOPIDOGREL 75 MG TAB PO SCH (09:42)
[2018-02-04] MEDS: FAMOTIDINE 20 MG TAB PO SCH (09:42)
[2018-02-04] MEDS: ASPIRIN 81 MG TAB PO SCH (09:42)
--- NOTE | 2018-02-04 10:55 | NUR ---
RN NOTES: Pt to CT scan at this time.
--- NOTE | 2018-02-04 11:05 | PN ---
DATE: 02/04/2018 SUBJECTIVE: The patient is stable. No events over night. No fevers, chills, nausea, vomiting. OBJECTIVE: VITAL SIGNS: Blood pressure is 144/78, pulse 68, respiration 18, temperature 97.8. HEENT: Head is normocephalic. NECK: Supple. HEART: Regular rate. LUNGS: Show diminished breath sounds at the base. ABDOMEN: Soft, nontender to palpation without rebound or guarding. EXTREMITIES: Negative for clubbing, cyanosis, no edema. DERMATOLOGIC: No rashes. MUSCULOSKELETAL: No joint effusion. NEUROLOGIC: No change in exam. MEDICATIONS: Reviewed. LABORATORY DATA: From 02/03/2018 was reviewed. ASSESSMENT AND PLAN: 1. End-stage renal disease. The patient had hemodialysis yesterday, tolerated well. Anticipate hem odialysis again tomorrow. 2. Hypokalemia, improved. Continue dialysis on a low potassium bath. 3. Anemia. Continue to monitor hemoglobin and hematocrit levels. 4. Mineral bone disorder, monitor calcium and phosphatase levels. 5. Acute encephalopathy, etiology is unclear, questionable uremia. The patient was seen by hawa crisostomo. Follow up recommendations. Continue to monitor. 6. Diabetes. Continue current insulin regimen. Dictated By: HARVEY LUCIO DO NR/NTS Conf#: [id number] DID#: [id number] CC: KEZIA COLBERT MD;*EndCC*
--- NOTE | 2018-02-04 12:32 | CONS ---
Date/Time of Note Date/Time of Note DATE: 02/04/18 TIME: 12:30 Assessment/Plan Assessment/Plan Assessment/Plan Shortness of breath likely secondary to volume overload from missed hemodialysis End-stage renal disease on hemodialysis Hyperkalemia CAD with history of PCI Hypertension Diabetes Dyslipidemia -Patient denies any chest pain, shortness of breath or palpitations. Overall feeling much better. Blood pressure trend remained stable. Continue antiplatelet therapy, statin therapy as long as LFTs continue to improve. DC planning Result Diagram: 02/03/18 1402 02/03/18 1402 Results 24hrs Laboratory Tests Test 02/03/18 14:02 02/03/18 17:08 02/03/18 20:42 02/04/18 08:04 White Blood 4.1 #L Count Red Blood Count 3.62 L Hemoglobin 10.7 L Hematocrit 34.7 L Mean Corpuscular 95.9 Volume Mean Corpuscular 29.6 Hemoglobin Mean Corpuscular 30.8 L Hemoglobin Nuha nt Red Cell 17.0 H Distribution Width Platelet Count 146 Mean Platelet 11.0 H Volume Immature 0.200 Granulocytes % Neutrophils % 65.9 Lymphocytes % 19.4 Monocytes % 11.9 H Eosinophils % 1.9 Basophils % 0.7 Nucleated Red 1.0 H Blood Cells % Immature 0.010 Granulocytes # Neutrophils # 2.7 Lymphocytes # 0.8 Monocytes # 0.5 Eosinophils # 0.1 Basophils # 0.0 Nucleated Red 0.0 Blood Cells # Sodium Level 144 Potassium Level 3.9 Chloride Level 98 Carbon Dioxide 30 Level Anion Gap 16 H Blood Urea 14 # Nitrogen Creatinine 3.44 #H Est Glomerular 17 L Filtrat Rate mL/min Glucose Level 91 Calcium Level 8.9 Ionized Calcium 1.1 (Measured) Phosphorus Level 3.5 # Total Bilirubin 0.3 Direct Bilirubin 0.00 Indirect 0.3 Bilirubin Aspartate Amino 363 H Transf (AST/SGOT ) Alanine 461 H Aminotransferase (ALT/SGPT) Alkaline 328 H Phosphatase Total Protein 7.8 Albumin 4.2 Globulin 3.60 H Albumin/Globulin 1.16 Ratio Thyroid 5.510 H Stimulating Hormone (TSH) Bedside Glucose 89 101 69 L Test 02/04/18 08:31 02/04/18 08:33 02/04/18 09:35 02/04/18 11:23 Hepatitis B NEGATIVE Surface Antigen Hepatitis B Core NEGATIVE Total Antibody Hepatitis C NEGATIVE Antibody Total Bilirubin 0.1 L Direct Bilirubin 0.00 Indirect 0.1 Bilirubin Aspartate Amino 212 H Transf (AST/SGOT ) Alanine 363 H Aminotransferase (ALT/SGPT) Alkaline 290 H Phosphatase Total Protein 6.8 # Albumin 4.1 Bedside Glucose 87 118 Consultation Date/Type/Reason Admit Date/Time Jan 27, 2018 at 04:03 Initial Consult Date Type of Consult cv 24 HR Interval Summary Free Text/Dictation Patient seen and examined. Denies any chest pain, palpitations or shortness of breath Exam/Review of Systems Vital Signs Vitals Vital Signs Date Temp Pulse Resp B/P (MAP) Pulse Ox O2 O2 Flow FiO2 Time Delivery Rate 02/04/18 72 12:00 02/04/18 98.4 18 122/57 97 Room Air 11:01 (78) Intake and Output 02/03/18 02/03/18 02/04/18 1515:00 23:00 07:00 IntakeIntake Total 400 ml 250 ml OutputOutput Total 2100 ml BalanceBalance -2100 ml 400 ml 250 ml Exam No apparent distress Constitutional: alert, oriented Head: normocephalic Respiratory: other (Coarse breath sounds bilaterally, no wheezing) Cardiovascular: regular rate and rhythm, other (S1-S2 heard) Gastrointestinal: soft, non-tender, bowel sounds Extremities: other (With no significant edema) Medications Medications Current Medications Acetaminophen (Tylenol Tab) 650 mg Q6H PRN PO MILD PAIN(1-3)OR ELEVATED TEMP Last administered on 01/31/18at 00:19; Admin Dose 650 MG; Start 01/27/18 at 13:30 Amlodipine Besylate (Norvasc) 5 mg DAILY PO Last administered on 02/04/18at 09:42; Admin Dose 5 MG; Start 01/27/18 at 21:00 Atorvastatin Calcium (Lipitor) 20 mg HS PO Last administered on 02/02/18at 21:15; Admin Dose 20 MG; Start 01/27/18 at 21:00 Clopidogrel Bisulfate (plaVIX) 75 mg DAILY PO Last administered on 02/04/18 09:42; Admin Dose 75 MG; Start 01/27/18 at 21:00 Acetaminophen/ Hydrocodone Bitart ([place] (10/325)) 2 tab Q6H PRN PO MODERATE PAIN LEVEL 4-6 Last administered on 02/02/18 17:52; Admin Dose 2 TAB; Start 01/27/18 at 13:30 Isosorbide Mononitrate (Imdur) 30 mg DAILY PO Last administered on 02/04/18 09:41; Admin Dose 30 MG; Start 01/28/18 at 21:00 Famotidine (Pepcid) 10 mg DAILY PO Last administered on 02/04/18 09:42; Admin Dose 10 MG; Start 01/27/18 at 21:00 Diagnostic Test (Pha) (Accu-Chek) 1 ea 02 XX Last administered on 02/01/18 02:00; Admin Dose 1 EA; Start 01/28/18 at 02:00 Insulin Aspart (Novolog Insulin Pen) NOVOLOG *MILD* ALGORITHM WITH MEALS BEDTIME SC Last administered on 01/29/18 11:43; Admin Dose 1 UNIT; Start 01/27/18 at 17:35 Metoprolol Tartrate (Lopressor) 25 mg BID PO Last administered on 02/04/18 09:41; Admin Dose 25 MG; Start 01/27/18 at 21:00 Ranolazine (Ranexa) 500 mg Q12 PO Last administered on 02/04/18 09:42; Admin Dose 500 MG; Start 01/27/18 at 21:00 Zolpidem Tartrate (Ambien) 5 mg HS MAY REPEAT X 1 PRN PO INSOMNIA; Start 01/27/18 at 13:30 Diphenhydramine HCl (Benadryl) 25 mg Q6H PRN IV ITCHING Last administered on 01/30/18at 08:10; Admin Dose 25 MG; Start 01/27/18 at 14:30 Epoetin Geo (Epogen (Esrd)) 8,000 units AFTER DIALYSIS SC Last administered on 01/28/18at 15:11; Admin Dose 8,000 UNITS; Start 01/28/18 at 08:00 Levothyroxine Sodium (Synthroid) 225 mcg DAILY@06 PO Last administered on 02/04/18 05:47; Admin Dose 225 MCG; Start 01/29/18 at 06:00 Aspirin (Aspirin) 81 mg DAILY PO Last administered on 02/04/18 09:42; Admin Dose 81 MG; Start 01/28/18 at 13:00 Miscellaneous Information 1 ea NOTE XX ; Start 01/28/18 at 14:00 Glucose (Glutose) 15 gm Q15M PRN PO DECREASED GLUCOSE; Start 01/28/18 at 14:00 Glucose (Glutose) 22.5 gm Q15M PRN PO DECREASED GLUCOSE; Start 01/28/18 at 14:00 Dextrose (D50w Syringe) 25 ml Q15M PRN IV DECREASED GLUCOSE; Start 01/28/18 at 14:00 Dextrose (D50w Syringe) 50 ml Q15M PRN IV DECREASED GLUCOSE; Start 01/28/18 at 14:00 Glucagon (Glucagen) 1 mg Q15M PRN IM DECREASED GLUCOSE; Start 01/28/18 at 14:00 Glucose (Glutose) 15 gm Q15M PRN BUCCAL DECREASED GLUCOSE; Start 01/28/18 at 14:00 Sevelamer Carbonate (Renvela) 2.4 gm WITH MEALS GTB Last administered on 02/04/18at 12:29; Admin Dose 2.4 GM; Start 01/29/18 at 11:30 Cinacalcet (Sensipar) 60 mg WITH BREAKFAST PO Last administered on 02/04/18at 09:42; Admin Dose 60 MG; Start 01/30/18 at 09:00 Ondansetron HCl (Zofran Inj) 4 mg Q4H PRN IV NAUSEA AND/OR VOMITING Last administered on 01/31/18at 15:14; Admin Dose 4 MG; Start 01/30/18 at 20:30 Metoclopramide HCl (Reglan) 10 mg Q6H PRN IV NAUSEA Last administered on 01/31/18at 15:14; Admin Dose 10 MG; Start 01/31/18 at 11:00 Escitalopram Oxalate (Lexapro) 10 mg DAILY PO Last administered on 02/04/18at 09:42; Admin Dose 10 MG; Start 01/31/18 at 11:30 Pantoprazole (Protonix Tab) 40 mg DAILY@06 PO Last administered on 02/04/18at 05:47; Admin Dose 40 MG; Start 02/01/18 at 12:00 Albumin Human 100 ml @ 100 mls/hr DURING DIALYSIS PRN IV BLOOD PRESSURE SUPPORT Last administered on 02/01/18at 19:12; Admin Dose 100 MLS/HR; Start 02/01/18 at 18:30 Haloperidol (Haldol) 2 mg Q6H PRN PO Hallucination; Start 02/03/18 at 16:00 Mirtazapine (Remeron) 7.5 mg PC DINNER PO ; Start 02/03/18 at 18:55 Haloperidol (Haldol) 2 mg QHS PO ; Start 02/03/18 at 21:00 Heri Schaefer DO Feb 04, 2018 12:32
--- NOTE | 2018-02-04 13:05 | RADRPT ---
Vent Rate: 71 bpm RR Interval: 0 msec MS Interval: 184 msec QRS Duration: 126 msec QT Interval: 484 msec QTC Interval: 525 msec P-R-T Har[place]inger: 61 - -27 - 80 degrees Normal sinus rhythm Nonspecific intraventricular block Inferior infarct , age undetermined Abnormal ECG Electronically Signed By: Heri Schaefer [id number]
--- NOTE | 2018-02-04 14:49 | CONS ---
Assessment/Plan Assessment/Plan Hospital Course A: 52 yo F with ESRD on HD and other comorbidities... who initially presented for evaluation of shortness of breath and other sx... Of note, she is reported to have missed several hemodialysis sessions prior to presentation... Neurology is consulted to evaluate altered mental status. Most clinically consistent with an acute toxic metabolic encephalopathy Stroke is unlikely. Seizure is unlikely. Head CT is unrevealing. P: OK to defer additional neuroimaging for now Cont medical management per primary Reorient as necessary Limit sedating medications where possible PT/OT as tolerated Will follow clinically Result Diagram: 02/03/18 1402 02/03/18 1402 Results 24hrs Laboratory Tests Test 02/03/18 17:08 02/03/18 20:42 02/04/18 08:04 02/04/18 08:31 Bedside Glucose 89 101 69 L Hepatitis B NEGATIVE Surface Antigen Hepatitis B Core NEGATIVE Total Antibody Hepatitis C NEGATIVE Antibody Test 02/04/18 08:33 02/04/18 09:35 02/04/18 11:23 Total Bilirubin 0.1 L Direct Bilirubin 0.00 Indirect 0.1 Bilirubin Aspartate Amino 212 H Transf (AST/SGOT ) Alanine 363 H Aminotransferase (ALT/SGPT) Alkaline 290 H Phosphatase Total Protein 6.8 # Albumin 4.1 Bedside Glucose 87 118 Consultation Date/Type/Reason Admit Date/Time Jan 27, 2018 at 04:03 Type of Consult Neurology Requesting Provider: KISHORE HURST MD Date/Time of Note DATE: 02/04/18 TIME: 14:49 Hx of Present Illness This is a 52 yo F with hx of ESRD on HD and other comorbidities who presented to the ED with worsening edema and SOB after missing several HD sessions. History was obtained from pt and chart review. It is additionally elsewhere noted: HISTORY OF PRESENT ILLNESS: This is one of several [facility] admissions for this 52-year-old woman was admitted with chief complaint of weakness and shortness of breath. Christine Youngblood a 52-year-old diabetic with chronic renal failure on dialysis, had missed several dialysis sessions and was progressively worsening with developing edema and shortness of breath. The patient presented to the emergency room with the above complaints and was evaluated. Of note other than obvious weakness and possible heart failure, the patient was noted to have a low level anemia, but more importantly her creatinine was at 17.74. Her BUN was 128. Her potassium was 7.4. Sodium and chloride were relatively normal. However, her CO2 is 17.. Her glucose was at good level. Alkaline phosphatase was markedly elevated. BNP was 95,000. Troponin was negative. The patient was admitted to the intensive care unit for further treatment and evaluation including acute dialysis need and other appropriate treatments. The patient has been under the care of a provider service representative, Dr. Schaefer and has had a recent angiogram and angioplasty. Also she is under the care of transport conductor for chronic dialysis. Her current state is relatively guarded in view of her markedly deteriorated condition. negative unless noted otherwise in HPI Exam/Review of Systems Vital Signs Vitals Vital Signs Date Temp Pulse Resp B/P (MAP) Pulse Ox O2 O2 Flow FiO2 Time Delivery Rate 02/04/18 72 12:00 02/04/18 98.4 18 122/57 97 Room Air 11:01 (78) Intake and Output 02/03/18 02/03/18 02/04/18 1515:00 23:00 07:00 IntakeIntake Total 400 ml 250 ml OutputOutput Total 2100 ml BalanceBalance -2100 ml 400 ml 250 ml Exam PE: Gen Appearance: No Apparent Distress HEENT: Normocephalic Cardiovascular: Regular rate Lungs: Clear bilaterally Abdomen: Soft Extremities: Dry NE: The patient was alert though somewhat disoriented. Oriented to self, place, and situation. Language was normal. Fund of knowledge was normal. Pupils were equal and reactive to light. There was no afferent pupillary defect. Visual alvarez were normal. Funduscopic examination was limited.. Extra-ocular movements were full. Ptosis was absent. There was no nystagmus. Facial sensation was normal. Face was symmetric with normal strength. Hearing was intact. Palate movements were normal. Neck strength was normal. There was normal tongue bulk and speed of movement. Tone was normal. Muscle bulk was normal. I did not see fasciculations. Arms and legs were mildly weak and symmetric. . Vibration sensation was normal. Temperature and pinprick sensation was normal. Rapid alternating movements were normal. There was no dysmetria. There was no intention tremor. Gait was deferred due to bedrest. Arm and leg reflexes were 2+ and symmetric. Merlos's sign was absent. Plantar responses were flexor. Medications Medications Current Medications Acetaminophen (Tylenol Tab) 650 mg Q6H PRN PO MILD PAIN(1-3)OR ELEVATED TEMP Last administered on 01/31/18 00:19; Admin Dose 650 MG; Start 01/27/18 at 13:30 Amlodipine Besylate (Norvasc) 5 mg DAILY PO Last administered on 02/04/18 09:42; Admin Dose 5 MG; Start 01/27/18 at 21:00 Atorvastatin Calcium (Lipitor) 20 mg HS PO Last administered on 02/02/18 21:15; Admin Dose 20 MG; Start 01/27/18 at 21:00 Clopidogrel Bisulfate (plaVIX) 75 mg DAILY PO Last administered on 02/04/18 09:42; Admin Dose 75 MG; Start 01/27/18 at 21:00 Acetaminophen/ Hydrocodone Bitart ([place] (10/325)) 2 tab Q6H PRN PO MODERATE PA IN LEVEL 4-6 Last administered on 02/02/18 17:52; Admin Dose 2 TAB; Start 01/27/18 at 13:30 Isosorbide Mononitrate (Imdur) 30 mg DAILY PO Last administered on 02/04/18 09:41; Admin Dose 30 MG; Start 01/28/18 at 21:00 Famotidine (Pepcid) 10 mg DAILY PO Last administered on 02/04/18 09:42; Admin Dose 10 MG; Start 01/27/18 at 21:00 Diagnostic Test (Pha) (Accu-Chek) 1 ea 02 XX Last administered on 02/01/18 02:00; Admin Dose 1 EA; Start 01/28/18 at 02:00 Insulin Aspart (Novolog Insulin Pen) NOVOLOG *MILD* ALGORITHM WITH MEALS BEDTIME SC Last administered on 01/29/18 11:43; Admin Dose 1 UNIT; Start 01/27/18 at 17:35 Metoprolol Tartrate (Lopressor) 25 mg BID PO Last administered on 02/04/18 09:41; Admin Dose 25 MG; Start 01/27/18 at 21:00 Ranolazine (Ranexa) 500 mg Q12 PO Last administered on 02/04/18 09:42; Admin Dose 500 MG; Start 01/27/18 at 21:00 Zolpidem Tartrate (Ambien) 5 mg HS MAY REPEAT X 1 PRN PO INSOMNIA; Start 01/27/18 at 13:30 Diphenhydramine HCl (Benadryl) 25 mg Q6H PRN IV ITCHING Last administered on 01/30/18at 08:10; Admin Dose 25 MG; Start 01/27/18 at 14:30 Epoetin Geo (Epogen (Esrd)) 8,000 units AFTER DIALYSIS SC Last administered on 01/28/18at 15:11; Admin Dose 8,000 UNITS; Start 01/28/18 at 08:00 Levothyroxine Sodium (Synthroid) 225 mcg DAILY@06 PO Last administered on 02/04/18at 05:47; Admin Dose 225 MCG; Start 01/29/18 at 06:00 Aspirin (Aspirin) 81 mg DAILY PO Last administered on 02/04/18at 09:42; Admin Dose 81 MG; Start 01/28/18 at 13:00 Miscellaneous Information 1 ea NOTE XX ; Start 01/28/18 at 14:00 Glucose (Glutose) 15 gm Q15M PRN PO DECREASED GLUCOSE; Start 01/28/18 at 14:00 Glucose (Glutose) 22.5 gm Q15M PRN PO DECREASED GLUCOSE; Start 01/28/18 at 14:00 Dextrose (D50w Syringe) 25 ml Q15M PRN IV DECREASED GLUCOSE; Start 01/28/18 at 14:00 Dextrose (D50w Syringe) 50 ml Q15M PRN IV DECREASED GLUCOSE; Start 01/28/18 at 14:00 Glucagon (Glucagen) 1 mg Q15M PRN IM DECREASED GLUCOSE; Start 01/28/18 at 1 4:00 Glucose (Glutose) 15 gm Q15M PRN BUCCAL DECREASED GLUCOSE; Start 01/28/18 at 14:00 Sevelamer Carbonate (Renvela) 2.4 gm WITH MEALS GTB Last administered on 02/04/18at 12:29; Admin Dose 2.4 GM; Start 01/29/18 at 11:30 Cinacalcet (Sensipar) 60 mg WITH BREAKFAST PO Last administered on 02/04/18at 09:42; Admin Dose 60 MG; Start 01/30/18 at 09:00 Ondansetron HCl (Zofran Inj) 4 mg Q4H PRN IV NAUSEA AND/OR VOMITING Last administered on 01/31/18at 15:14; Admin Dose 4 MG; Start 01/30/18 at 20:30 Metoclopramide HCl (Reglan) 10 mg Q6H PRN IV NAUSEA Last administered on 01/31/18at 15:14; Admin Dose 10 MG; Start 01/31/18 at 11:00 Escitalopram Oxalate (Lexapro) 10 mg DAILY PO Last administered on 02/04/18 09:42; Admin Dose 10 MG; Start 01/31/18 at 11:30 Pantoprazole (Protonix Tab) 40 mg DAILY@06 PO Last administered on 02/04/18at 05:47; Admin Dose 40 MG; Start 02/01/18 at 12:00 Albumin Human 100 ml @ 100 mls/hr DURING DIALYSIS PRN IV BLOOD PRESSURE SUPPORT Last administered on 02/01/18at 19:12; Admin Dose 100 MLS/HR; Start 02/01/18 at 18:30 Haloperidol (Haldol) 2 mg Q6H PRN PO Hallucination; Start 02/03/18 at 16:00 Mirtazapine (Remeron) 7.5 mg PC DINNER PO ; Start 02/03/18 at 18:55 Haloperidol (Haldol) 2 mg QHS PO ; Start 02/03/18 at 21:00 Past Medical History reviewed Medical History: coronary artery disease, diabetes, high cholesterol, hypertension, renal disease Medications Current Medications Acetaminophen (Tylenol Tab) 650 mg Q6H PRN PO MILD PAIN(1-3)OR ELEVATED TEMP Last administered on 01/31/18at 00:19; Admin Dose 650 MG; Start 01/27/18 at 13:30 Amlodipine Besylate (Norvasc) 5 mg DAILY PO Last administered on 02/04/18 09:42; Admin Dose 5 MG; Start 01/27/18 at 21:00 Atorvastatin Calcium (Lipitor) 20 mg HS PO Last administered on 02/02/18 21:15; Admin Dose 20 MG; Start 01/27/18 at 21:00 Clopidogrel Bisulfate (plaVIX) 75 mg DAILY PO Last administered on 02/04/18 09:42; Admin Dose 75 MG; Start 01/27/18 at 21:00 Acetaminophen/ Hydrocodone Bitart ([place] (10/325)) 2 tab Q6H PRN PO MODERATE PAIN LEVEL 4-6 Last administered on 02/02/18 17:52; Admin Dose 2 TAB; Start 01/27/18 at 13:30 Isosorbide Mononitrate (Imdur) 30 mg DAILY PO Last administered on 02/04/18 09:41; Admin Dose 30 MG; Start 01/28/18 at 21:00 Famotidine (Pepcid) 10 mg DAILY PO Last administered on 02/04/18 09:42; Admin Dose 10 MG; Start 01/27/18 at 21:00 Diagnostic Test (Pha) (Accu-Chek) 1 ea 02 XX Last administered on 02/01/18at 02:00; Admin Dose 1 EA; Start 01/28/18 at 02:00 Insulin Aspart (Novolog Insulin Pen) NOVOLOG *MILD* ALGORITHM WITH MEALS BEDTIME SC Last administered on 01/29/18 11:43; Admin Dose 1 UNIT; Start 01/27/18 at 17:35 Metoprolol Tartrate (Lopressor) 25 mg BID PO Last administered on 02/04/18 09:41; Admin Dose 25 MG; Start 01/27/18 at 21:00 Ranolazine (Ranexa) 500 mg Q12 PO Last administered on 02/04/18 09:42; Admin Dose 500 MG; Start 01/27/18 at 21:00 Zolpidem Tartrate (Ambien) 5 mg HS MAY REPEAT X 1 PRN PO INSOMNIA; Start 01/27/18 at 13:30 Diphenhydramine HCl (Benadryl) 25 mg Q6H PRN IV ITCHING Last administered on 01/30/18at 08:10; Admin Dose 25 MG; Start 01/27/18 at 14:30 Epoetin Geo (Epogen (Esrd)) 8,000 units AFTER DIALYSIS SC Last administered on 01/28/18at 15:11; Admin Dose 8,000 UNITS; Start 01/28/18 at 08:00 Levothyroxine Sodium (Synthroid) 225 mcg DAILY@06 PO Last administered on 02/04/18at 05:47; Admin Dose 225 MCG; Start 01/29/18 at 06:00 Aspirin (Aspirin) 81 mg DAILY PO Last administered on 02/04/18 09:42; Admin Dose 81 MG; Start 01/28/18 at 13:00 Miscellaneous Information 1 ea NOTE XX ; Start 01/28/18 at 14:00 Glucose (Glutose) 15 gm Q15M PRN PO DECREASED GLUCOSE; Start 01/28/18 at 14:00 Glucose (Glutose) 22.5 gm Q15M PRN PO DECREASED GLUCOSE; Start 01/28/18 at 14:00 Dextrose (D50w Syringe) 25 ml Q15M PRN IV DECREASED GLUCOSE; Start 01/28/18 at 14:00 Dextrose (D50w Syringe) 50 ml Q15M PRN IV DECREASED GLUCOSE; Start 01/28/18 at 14:00 Glucagon (Glucagen) 1 mg Q15M PRN IM DECREASED GLUCOSE; Start 01/28/18 at 14:00 Glucose (Glutose) 15 gm Q15M PRN BUCCAL DECREASED GLUCOSE; Start 01/28/18 at 14:00 Sevelamer Carbonate (Renvela) 2.4 gm WITH MEALS GTB Last administered on 02/04/18at 12:29; Admin Dose 2.4 GM; Start 01/29/18 at 11:30 Cinacalcet (Sensipar) 60 mg WITH BREAKFAST PO Last administered on 02/04/18at 09:42; Admin Dose 60 MG; Start 01/30/18 at 09:00 Ondansetron HCl (Zofran Inj) 4 mg Q4H PRN IV NAUSEA AND/OR VOMITING Last administered on 01/31/18at 15:14; Admin Dose 4 MG; Start 01/30/18 at 20:30 Metoclopramide HCl (Reglan) 10 mg Q6H PRN IV NAUSEA Last administered on 01/31/18at 15:14; Admin Dose 10 MG; Start 01/31/18 at 11:00 Escitalopram Oxalate (Lexapro) 10 mg DAILY PO Last administered on 02/04/18at 09:42; Admin Dose 10 MG; Start 01/31/18 at 11:30 Pantoprazole (Protonix Tab) 40 mg DAILY@06 PO Last administered on 02/04/18at 05:47; Admin Dose 40 MG; Start 02/01/18 at 12:00 Albumin Human 100 ml @ 100 mls/hr DURING DIALYSIS PRN IV BLOOD PRESSURE SUPPORT Last administered on 02/01/18at 19:12; Admin Dose 100 MLS/HR; Start 02/01/18 at 18:30 Haloperidol (Haldol) 2 mg Q6H PRN PO Hallucination; Start 02/03/18 at 16:00 Mirtazapine (Remeron) 7.5 mg PC DINNER PO ; Start 02/03/18 at 18:55 Haloperidol (Haldol) 2 mg QHS PO ; Start 02/03/18 at 21:00 Allergies: Coded Allergies: No Known Drug Allergies (Verified Allergy, Unknown, 02/03/18) Past Surgical History reviewed Past Surgical Hx: angioplasty, other Social History reviewed Smoking Status: Never smoker JASEN GRIFFITH NP Feb 04, 2018 14:49 TAMMI DELEON Feb 05, 2018 05:58
[2018-02-04] MEDS: MIRTAZAPINE 15 MG TAB PO SCH (17:56)
--- NOTE | 2018-02-04 18:58 | NUR ---
EOSS: Pt laying in bed comfortably, VS stable, denies pain. Called [facility], scheduled appointment for tomorrow, confirmation #[id number]. CT brain was done. All needs attended at this time. Will endorse to oncoming shift accordingly.
[2018-02-04] MEDS: ATORVASTATIN 20 MG TAB PO SCH (20:51)
[2018-02-04] MEDS: HALOPERIDOL 1 MG TAB PO SCH (21:00)
[2018-02-05] VITALS (23 sets, daily range): BP systolic 90–161; BP diastolic 41–99; PULSE 59–78; RESP 18–20
[2018-02-05] MEDS: ACCU-CHEK XX SCH (02:00)
[2018-02-05] MEDS: LEVOTHYROXINE 100 MCG TAB PO SCH (06:18)
[2018-02-05] MEDS: PANTOPRAZOLE (EC) 40 MG TAB PO SCH (06:18)
--- NOTE | 2018-02-05 07:00 | NUR ---
no significant changes in condition , monitor vitals , no distress ,nor sign of anxiety . re orient pt. to date and time ,for HD today
[2018-02-05] MEDS: INSULIN ASPART [NOVOLOG] 3 ML PEN SC SCH ×4 (07:51→21:00)
--- NOTE | 2018-02-05 08:04 | PN ---
Date/Time of Note Date/Time of Note DATE: 02/05/18 TIME: 07:54 Assessment/Plan VTE Prophylaxis Risk score (from Ns)>0 risk: 3 SCD applied (from [facility] [place] No SCD contraindicated: patient refusal Pharmacological prophylaxis: other (plavix) Lines/Catheters IV Catheter Type (from [facility] Mid Line Urinary Cath still in place: No Assessment/Plan Hospital Course patient received for dialysis scheduled for second one today will transfer to telemetry when stable Assessment/Plan patient gradually improving re:hallucinations will try to ambulate today CAT scan negative for stroke or bleed. Neurology [id number] appreciated. LFT's still elevated hepatitis panel negative so far.Will hold lipitor for now and possibly other meds with potential hepatic adverse effects. Appears slightly improved today .PT re progressive ambulation. Result Diagram: 02/05/18 0559 02/05/18 0559 Results 24hrs Laboratory Tests Test 02/04/18 08:04 02/04/18 08:31 02/04/18 08:33 02/04/18 09:35 Bedside Glucose 69 L 87 Hepatitis B NEGATIVE Surface Antigen Hepatitis B Core NEGATIVE Total Antibody Hepatitis C NEGATIVE Antibody Total Bilirubin 0.1 L Direct Bilirubin 0.00 Indirect 0.1 Bilirubin Aspartate Amino 212 H Transf (AST/SGOT ) Alanine 363 H Aminotransferase (ALT/SGPT) Alkaline 290 H Phosphatase Total Protein 6.8 # Albumin 4.1 Test 02/04/18 09:41 02/04/18 11:23 02/04/18 17:39 02/04/18 20:50 Hepatitis A IgM NON-REACTIVE Antibody Bedside Glucose 118 123 112 Test 02/05/18 05:59 02/05/18 07:50 White Blood 5.8 # Count Red Blood Count 3.76 L Hemoglobin 10.8 L Hematocrit 35.7 L Mean Corpuscular 94.9 Volume Mean Corpuscular 28.7 L Hemoglobin Mean Corpuscular 30.3 L Hemoglobin Nuha nt Red Cell 17.8 H Distribution Width Platelet Count 133 L Mean Platelet 10.9 H Volume Immature 0.700 H Granulocytes % Neutrophils % 57.8 Lymphocytes % 26.6 Monocytes % 12.8 H Eosinophils % 1.6 Basophils % 0.5 Nucleated Red 2.4 H Blood Cells % Immature 0.040 H Granulocytes # Neutrophils # 3.3 Lymphocytes # 1.5 Monocytes # 0.7 Eosinophils # 0.1 Basophils # 0.0 Nucleated Red 0.1 H Blood Cells # Sodium Level 143 Potassium Level 4.6 Chloride Level 95 L Carbon Dioxide 25 Level Anion Gap 23 #H Blood Urea 31 #H Nitrogen Creatinine 6.77 #H Est Glomerular 8 L Filtrat Rate mL/min Glucose Level 114 Calcium Level 6.5 L Total Bilirubin 0.1 L Direct Bilirubin 0.00 Indirect 0.1 Bilirubin Aspartate Amino 253 H Transf (AST/SGOT ) Alanine 392 H Aminotransferase (ALT/SGPT) Alkaline 321 H Phosphatase Total Protein 6.9 Albumin 4.1 Globulin 2.80 Albumin/Globulin 1.46 Ratio Bedside Glucose 104 Subjective 24 Hr Interval Summary Constitutional: improved Eyes: no complaints ENT: no complaints Respiratory: no complaints Cardiovascular: no complaints Gastrointestinal: no complaints Genitourinary: no complaints Musculoskeletal: no complaints Skin: no complaints Neurologic: no complaints Endocrine: no complaints Lymphatic: no complaints Psychological: depression Immunologic: no complaints Exam/Review of Systems Vital Signs Vitals Vital Signs Date Temp Pulse Resp B/P (MAP) Pulse Ox O2 O2 Flow FiO2 Time Delivery Rate 02/05/18 98.6 59 18 118/66 99 07:19 (83) 02/04/18 Room Air 15:19 Intake and Output 02/04/18 02/04/18 02/05/18 1515:00 23:00 07:00 IntakeIntake Total 580 ml 300 ml BalanceBalance 580 ml 300 ml Exam Constitutional: alert, oriented Psych: depression Head: normocephalic Eyes: nl conjunctiva ENMT: nl external ears & nose Neck: supple Respiratory: clear to auscultation Cardiovascular: regular rate and rhythm Gastrointestinal: soft Musculoskeletal: nl extremities to inspection Medications Medications Current Medications Acetaminophen (Tylenol Tab) 650 mg Q6H PRN PO MILD PAIN(1-3)OR ELEVATED TEMP Last administered on 01/31/18at 00:19; Admin Dose 650 MG; Start 01/27/18 at 13:30 Amlodipine Besylate (Norvasc) 5 mg DAILY PO Last administered on 02/04/18at 09:42; Admin Dose 5 MG; Start 01/27/18 at 21:00 Atorvastatin Calcium (Lipitor) 20 mg HS PO Last administered on 02/04/18at 20:51; Admin Dose 20 MG; Start 01/27/18 at 21:00 Clopidogrel Bisulfate (plaVIX) 75 mg DAILY PO Last administered on 02/04/18 09:42; Admin Dose 75 MG; Start 01/27/18 at 21:00 Acetaminophen/ Hydrocodone Bitart ([place] (10/325)) 2 tab Q6H PRN PO MODERATE PAIN LEVEL 4-6 Last administered on 02/02/18 17:52; Admin Dose 2 TAB; Start 01/27/18 at 13:30 Isosorbide Mononitrate (Imdur) 30 mg DAILY PO Last administered on 02/04/18 09:41; Admin Dose 30 MG; Start 01/28/18 at 21:00 Famotidine (Pepcid) 10 mg DAILY PO Last administered on 02/04/18 09:42; Admin Dose 10 MG; Start 01/27/18 at 21:00 Diagnostic Test (Pha) (Accu-Chek) 1 ea 02 XX Last administered on 02/01/18at 0 2:00; Admin Dose 1 EA; Start 01/28/18 at 02:00 Insulin Aspart (Novolog Insulin Pen) NOVOLOG *MILD* ALGORITHM WITH MEALS BEDTIME SC Last administered on 01/29/18 11:43; Admin Dose 1 UNIT; Start 1 03/30/17 at 17:35 Metoprolol Tartrate (Lopressor) 25 mg BID PO Last administered on 02/04/18 20:52; Admin Dose 25 MG; Start 01/27/18 at 21:00 Ranolazine (Ranexa) 500 mg Q12 PO Last administered on 02/04/18 20:51; Admin Dose 500 MG; Start 01/27/18 at 21:00 Zolpidem Tartrate (Ambien) 5 mg HS MAY REPEAT X 1 PRN PO INSOMNIA; Start 01/27/18 at 13:30 Diphenhydramine HCl (Benadryl) 25 mg Q6H PRN IV ITCHING Last administered on 01/30/18 08:10; Admin Dose 25 MG; Start 01/27/18 at 14:30 Epoetin Geo (Epogen (Esrd)) 8,000 units AFTER DIALYSIS SC Last administered on 01/28/18 15:11; Admin Dose 8,000 UNITS; Start 01/28/18 at 08:00 Levothyroxine Sodium (Synthroid) 225 mcg DAILY@06 PO Last administered on 12/27/18at 06:18; Admin Dose 225 MCG; Start 01/29/18 at 06:00 Aspirin (Aspirin) 81 mg DAILY PO Last administered on 02/04/18at 09:42; Admin Dose 81 MG; Start 01/28/18 at 13:00 Miscellaneous Information 1 ea NOTE XX ; Start 01/28/18 at 14:00 Glucose (Glutose) 15 gm Q15M PRN PO DECREASED GLUCOSE; Start 01/28/18 at 14:00 Glucose (Glutose) 22.5 gm Q15M PRN PO DECREASED GLUCOSE; Start 01/28/18 at 14:00 Dextrose (D50w Syringe) 25 ml Q15M PRN IV DECREASED GLUCOSE; Start 01/28/18 at 14:00 Dextrose (D50w Syringe) 50 ml Q15M PRN IV DECREASED GLUCOSE; Start 01/28/18 at 14:00 Glucagon (Glucagen) 1 mg Q15M PRN IM DECREASED GLUCOSE; Start 01/28/18 at 14:00 Glucose (Glutose) 15 gm Q15M PRN BUCCAL DECREASED GLUCOSE; Start 01/28/18 at 14:00 Sevelamer Carbonate (Renvela) 2.4 gm WITH MEALS GTB Last administered on 02/04/18at 17:56; Admin Dose 2.4 GM; Start 01/29/18 at 11:30 Cinacalcet (Sensipar) 60 mg WITH BREAKFAST PO Last administered on 02/04/18at 09:42; Admin Dose 60 MG; Start 01/30/18 at 09:00 Ondansetron HCl (Zofran Inj) 4 mg Q4H PRN IV NAUSEA AND/OR VOMITING Last administered on 01/31/18at 15:14; Admin Dose 4 MG; Start 01/30/18 at 20:30 Metoclopramide HCl (Reglan) 10 mg Q6H PRN IV NAUSEA Last administered on 01/31/18at 15:14; Admin Dose 10 MG; Start 01/31/18 at 11:00 Escitalopram Oxalate (Lexapro) 10 mg DAILY PO Last administered on 02/04/18at 09:42; Admin Dose 10 MG; Start 01/31/18 at 11:30 Pantoprazole (Protonix Tab) 40 mg DAILY@06 PO Last administered on 02/05/18at 06:18; Admin Dose 40 MG; Start 02/01/18 at 12:00 Albumin Human 100 ml @ 100 mls/hr DURING DIALYSIS PRN IV BLOOD PRESSURE SUPPORT Last administered on 02/01/18at 19:12; Admin Dose 100 MLS/HR; Start 02/01/18 at 18:30 Haloperidol (Haldol) 2 mg Q6H PRN PO Hallucination; Start 02/03/18 at 16:00 Mirtazapine (Remeron) 7.5 mg PC DINNER PO Last administered on 02/04/18at 17:56; Admin Dose 7.5 MG; Start 02/03/18 at 18:55 Haloperidol (Haldol) 2 mg QHS PO ; Start 02/03/18 at 21:00 KISHORE HURST MD Feb 05, 2018 08:04
[2018-02-05] MEDS: SEVELAMER CARBONATE 2.4 GM PKT GTB SCH ×3 (08:08→17:44)
[2018-02-05] MEDS: RANOLAZINE (SR) 500 MG TAB PO SCH ×2 (08:08→21:12)
[2018-02-05] MEDS: CLOPIDOGREL 75 MG TAB PO SCH (08:09)
[2018-02-05] MEDS: ASPIRIN 81 MG TAB PO SCH (08:09)
[2018-02-05] MEDS: FAMOTIDINE 20 MG TAB PO SCH (08:09)
[2018-02-05] MEDS: ISOSORBIDE MONONITRATE(SR)30 MG TAB PO SCH (08:09)
[2018-02-05] MEDS: ESCITALOPRAM 10 MG TAB PO SCH (08:09)
[2018-02-05] MEDS: CINACALCET 30 MG TAB PO SCH (08:09)
[2018-02-05] MEDS: METOPROLOL 25 MG TAB PO SCH ×2 (08:10→21:17)
[2018-02-05] MEDS: AMLODIPINE 5 MG TAB PO SCH (08:10)
--- NOTE | 2018-02-05 09:20 | PN ---
DATE: 02/05/2018 SUBJECTIVE: The patient is stable, less confused. No other events noted overnight. OBJECTIVE: VITAL SIGNS: Blood pressure is 119/66, pulse 69, respiration 18, temperature 98.6. HEENT: Head is normocephalic. NECK: Supple. HEART: Regular rate. LUNGS: Show diminished breath sounds at base. ABDOMEN: Soft, nontender to palpation without rebound or guarding. EXTREMITIES: Negative for clubbing, cyanosis, no edema. DERMATOLOGIC: No rashes. MUSCULOSKELETAL: No joint effusions. NEUROLOGIC: No change in exam. MEDICATIONS: Reviewed. LABORATORY DATA: Has been reviewed. ASSESSMENT AND PLAN: 1. End stage renal disease. Plan is for hemodialysis today. We will dialyze for 3 hours, 3k bath, calcium 2.5, ultrafiltrate as tolerated. 2. Hyperkalemia, improved. Continue dialysis on a low potassium bath. 3. Anemia. Continue to monitor hemoglobin and hematocrit levels. Will continue Epogen. 4. Mineral bone disorder, monitor calcium and phosphorus levels. 5. Acute encephalopathy, etiology is toxic metabolic. Mental status is improving. Continue to [facility]. 6. Diabetes. Continue current insulin regimen. Dictated By: HARVEY LUCIO DO NR/NTS Conf#: [id number] DID#: [id number] CC: KEZIA COLBERT MD;*EndCC*
--- NOTE | 2018-02-05 11:27 | NUR ---
PT evaluation note: S: HPI per MD note: HISTORY OF PRESENT ILLNESS: This is one of several [facility] admissions for this 52-year-old woman was admitted with chief complaint of weakness and shortness of breath. Christine Youngblood a 52-year-old diabetic with chronic renal failure on dialysis, had missed several dialysis sessions and was progressively worsening with developing edema and shortness of breath. The patient presented to the emergency room with the above complaints and was evaluated. Of note other than obvious weakness and possible heart failure, the patient was noted to have a low level anemia, but more importantly her creatinine was at 17.74. Her BUN was 128. Her potassium was 7.4. Sodium and chloride were relatively normal. However, her CO2 is 17.. Her glucose was at good level. Alkaline phosphatase was markedly elevated. BNP was 95,000. Troponin was negative. The patient was admitted to the intensive care unit for further treatment and evaluation including acute dialysis need and other appropriate treatments. The patient has been under the care of a district court bailiff, Dr. Schaefer and has had a recent angiogram and angioplasty. Also she is under the care of applier for chronic dialysis. Her current state is relatively guarded in view of her markedly deteriorated condition. PREC: HIGH fall risk, knees buckling, HD patient PLOF: Patient was independent in all ADL and ambulatory without AD, lives alone in single story house with 2 regular steps to enter, 2 sons coming to assist pt at home if needed per pt. Pt doesn't owned any DME. Per pt she haven't walked for a week MD order received for PT consult. Patient feeling weak but agreeable to participate, cleared by nursing to proceed. CLOF: patient needed min assist for bed mobility, min/mod fo sit/stand and pre-gait activities along bed side with FWW. patient noted to be shaky on both arms and legs with mobility, tolerated 1 side step however knees shaky and buckled, scooted along EOB to get higher in bed but with mod assist. Patient overall HIGH fall risk, deconditioned, decreased energy level. A: Patient can benefit from either ARU or HHPT f/u with 24/7 care- pending progress. P: Cont PT and progress as able, 2P for safety
--- NOTE | 2018-02-05 14:11 | CONS ---
Date/Time of Note Date/Time of Note DATE: 02/05/18 TIME: 14:01 Assessment/Plan Assessment/Plan Assessment/Plan Shortness of breath likely secondary to volume overload from missed hemodialysis, resolved End-stage renal disease on hemodialysis CAD with history of PCI Hypertension Diabetes Dyslipidemia -Patient denies any chest pain, shortness of breath or palpitations. Overall feeling much better. Blood pressure trend remained stable. Continue antiplatelet therapy, statin therapy as long as LFTs continue to improve. DC planning Result Diagram: 02/05/18 0559 02/05/18 0559 Results 24hrs Laboratory Tests Test 02/04/18 17:39 02/04/18 20:50 02/05/18 05:59 02/05/18 07:50 Bedside Glucose 123 112 104 White Blood 5.8 # Count Red Blood Count 3.76 L Hemoglobin 10.8 L Hematocrit 35.7 L Mean Corpuscular 94.9 Volume Mean Corpuscular 28.7 L Hemoglobin Mean Corpuscular 30.3 L Hemoglobin Nuha nt Red Cell 17.8 H Distribution Width Platelet Count 133 L Mean Platelet 10.9 H Volume Immature 0.700 H Granulocytes % Neutrophils % 57.8 Lymphocytes % 26.6 Monocytes % 12.8 H Eosinophils % 1.6 Basophils % 0.5 Nucleated Red 2.4 H Blood Cells % Immature 0.040 H Granulocytes # Neutrophils # 3.3 Lymphocytes # 1.5 Monocytes # 0.7 Eosinophils # 0.1 Basophils # 0.0 Nucleated Red 0.1 H Blood Cells # Sodium Level 143 Potassium Level 4.6 Chloride Level 95 L Carbon Dioxide 25 Level Anion Gap 23 #H Blood Urea 31 #H Nitrogen Creatinine 6.77 #H Est Glomerular 8 L Filtrat Rate mL/min Glucose Level 114 Calcium Level 6.5 L Total Bilirubin 0.1 L Direct Bilirubin 0.00 Indirect 0.1 Bilirubin Aspartate Amino 253 H Transf (AST/SGOT ) Alanine 392 H Aminotransferase (ALT/SGPT) Alkaline 321 H Phosphatase Total Protein 6.9 Albumin 4.1 Globulin 2.80 Albumin/Globulin 1.46 Ratio Test 02/05/18 12:25 Bedside Glucose 94 Consultation Date/Type/Reason Admit Date/Time Jan 27, 2018 at 04:03 Initial Consult Date Type of Consult cv Requesting Provider: KISHORE HURST MD 24 HR Interval Summary Free Text/Dictation Denies chest pain, shortness of breath or palpitations Exam/Review of Systems Vital Signs Vitals Vital Signs Date Temp Pulse Resp B/P (MAP) Pulse Ox O2 O2 Flow FiO2 Time Delivery Rate 02/05/18 66 12:00 02/05/18 99.9 18 99/58 (72) 93 11:23 02/04/18 Room Air 15:19 Intake and Output 02/04/18 02/04/18 02/05/18 1515:00 23:00 07:00 IntakeIntake Total 580 ml 300 ml BalanceBalance 580 ml 300 ml Exam nad Constitutional: alert, oriented Head: normocephalic Respiratory: other (course bs, no wheeze) Cardiovascular: regular rate and rhythm, other (s1s2) Gastrointestinal: soft, non-tender, bowel sounds Extremities: edema Medications Medications Current Medications Acetaminophen (Tylenol Tab) 650 mg Q6H PRN PO MILD PAIN(1-3)OR ELEVATED TEMP Last administered on 01/31/18 00:19; Admin Dose 650 MG; Start 01/27/18 at 13:30; Status Hold Amlodipine Besylate (Norvasc) 5 mg DAILY PO Last administered on 02/04/18 09:42; Admin Dose 5 MG; Start 01/27/18 at 21:00 Atorvastatin Calcium (Lipitor) 20 mg HS PO Last administered on 02/04/18 20:51; Admin Dose 20 MG; Start 01/27/18 at 21:00; Status Hold Clopidogrel Bisulfate (plaVIX) 75 mg DAILY PO Last administered on 02/05/18 08:09; Admin Dose 75 MG; Start 01/27/18 at 21:00 Acetaminophen/ Hydrocodone Bitart ([place] (10/325)) 2 tab Q6H PRN PO MODERATE PAIN LEVEL 4-6 Last administered on 02/02/18 17:52; Admin Dose 2 TAB; Start 01/27/18 at 13:30; Status Hold Isosorbide Mononitrate (Imdur) 30 mg DAILY PO Last administered on 02/04/18 09:41; Admin Dose 30 MG; Start 01/28/18 at 21:00 Famotidine (Pepcid) 10 mg DAILY PO Last administered on 02/05/18 08:09; Admin Dose 10 MG; Start 01/27/18 at 21:00 Diagnostic Test (Pha) (Accu-Chek) 1 ea 02 XX Last administered on 02/01/18at 02:00; Admin Dose 1 EA; Start 01/28/18 at 02:00 Insulin Aspart (Novolog Insulin Pen) NOVOLOG *MILD* ALGORITHM WITH MEALS BEDTIME SC Last administered on 01/29/18at 11:43; Admin Dose 1 UNIT; Start 01/27/18 at 17:35 Metoprolol Tartrate (Lopressor) 25 mg BID PO Last administered on 02/04/18at 20:52; Admin Dose 25 MG; Start 01/27/18 at 21:00 Ranolazine (Ranexa) 500 mg Q12 PO Last administered on 02/05/18at 08:08; Admin Dose 500 MG; Start 01/27/18 at 21:00 Zolpidem Tartrate (Ambien) 5 mg HS MAY REPEAT X 1 PRN PO INSOMNIA; Start at 13:30 Diphenhydramine HCl (Benadryl) 25 mg Q6H PRN IV ITCHING Last administered on 01/30/18at 08:10; Admin Dose 25 MG; Start 01/27/18 at 14:30 Epoetin Geo (Epogen (Esrd)) 8,000 units AFTER DIALYSIS SC Last administered on 01/28/18at 15:11; Admin Dose 8,000 UNITS; Start 01/28/18 at 08:00 Levothyroxine Sodium (Synthroid) 225 mcg DAILY@06 PO Last administered on 02/05/18at 06:18; Admin Dose 225 MCG; Start 01/29/18 at 06:00 Aspirin (Aspirin) 81 mg DAILY PO Last administered on 02/05/18at 08:09; Admin Dose 81 MG; Start 01/28/18 at 13:00 Miscellaneous Information 1 ea NOTE XX ; Start 01/28/18 at 14:00 Glucose (Glutose) 15 gm Q15M PRN PO DECREASED GLUCOSE; Start 01/28/18 at 14:00 Glucose (Glutose) 22.5 gm Q15M PRN PO DECREASED GLUCOSE; Start 01/28/18 at 14:00 Dextrose (D50w Syringe) 25 ml Q15M PRN IV DECREASED GLUCOSE; Start 01/28/18 at 14:00 Dextrose (D50w Syringe) 50 ml Q15M PRN IV DECREASED GLUCOSE; Start 01/28/18 at 14:00 Glucagon (Glucagen) 1 mg Q15M PRN IM DECREASED GLUCOSE; Start 01/28/18 at 14:00 Glucose (Glutose) 15 gm Q15M PRN BUCCAL DECREASED GLUCOSE; Start 01/28/18 at 14:00 Sevelamer Carbonate (Renvela) 2.4 gm WITH MEALS GTB Last administered on 02/05/18 08:08; Admin Dose 2.4 GM; Start 01/29/18 at 11:30 Cinacalcet (Sensipar) 60 mg WITH BREAKFAST PO Last administered on 02/05/18 08:09; Admin Dose 60 MG; Start 01/30/18 at 09:00 Ondansetron HCl (Zofran Inj) 4 mg Q4H PRN IV NAUSEA AND/OR VOMITING Last administered on 01/31/18 15:14; Admin Dose 4 MG; Start 01/30/18 at 20:30 Metoclopramide HCl (Reglan) 10 mg Q6H PRN IV NAUSEA Last administered on 01/31/18 15:14; Admin Dose 10 MG; Start 01/31/18 at 11:00 Escitalopram Oxalate (Lexapro) 10 mg DAILY PO Last administered on 02/05/18 08:09; Admin Dose 10 MG; Start 01/31/18 at 11:30 Pantoprazole (Protonix Tab) 40 mg DAILY@06 PO Last administered on 02/05/18 06:18; Admin Dose 40 MG; Start 02/01/18 at 12:00 Albumin Human 100 ml @ 100 mls/hr DURING DIALYSIS PRN IV BLOOD PRESSURE SUPPORT Last administered on 02/01/18at 19:12; Admin Dose 100 MLS/HR; Start 02/01/18 at 18:30 Haloperidol (Haldol) 2 mg Q6H PRN PO Hallucination; Start 02/03/18 at 16:00 Mirtazapine (Remeron) 7.5 mg PC DINNER PO Last administered on 02/04/18at 17:56; Admin Dose 7.5 MG; Start 02/03/18 at 18:55 Haloperidol (Haldol) 2 mg QHS PO ; Start 02/03/18 at 21:00 Heri Schaefer DO Feb 05, 2018 14:11
--- NOTE | 2018-02-05 14:45 | CONS ---
Assessment/Plan Assessment/Plan Assessment/Plan A: 52 yo F with ESRD on HD and other comorbidities... who initially presented for evaluation of shortness of breath and other sx... Of note, she is reported to have missed several hemodialysis sessions prior to presentation... Neurology is consulted to evaluate altered mental status. Most clinically consistent with an acute toxic metabolic encephalopathy Stroke is unlikely. Seizure is unlikely. Head CT is unrevealing. P: OK to defer additional neuroimaging for now Cont medical management per primary Reorient as necessary Limit sedating medications where possible PT/OT as tolerated Will follow clinically Result Diagram: 02/05/18 0559 02/05/18 0559 Results 24hrs Laboratory Tests Test 02/04/18 17:39 02/04/18 20:50 02/05/18 05:59 02/05/18 07:50 Bedside Glucose 123 112 104 White Blood 5.8 # Count Red Blood Count 3.76 L Hemoglobin 10.8 L Hematocrit 35.7 L Mean Corpuscular 94.9 Volume Mean Corpuscular 28.7 L Hemoglobin Mean Corpuscular 30.3 L Hemoglobin Nuha nt Red Cell 17.8 H Distribution Width Platelet Count 133 L Mean Platelet 10.9 H Volume Immature 0.700 H Granulocytes % Neutrophils % 57.8 Lymphocytes % 26.6 Monocytes % 12.8 H Eosinophils % 1.6 Basophils % 0.5 Nucleated Red 2.4 H Blood Cells % Immature 0.040 H Granulocytes # Neutrophils # 3.3 Lymphocytes # 1.5 Monocytes # 0.7 Eosinophils # 0.1 Basophils # 0.0 Nucleated Red 0.1 H Blood Cells # Sodium Level 143 Potassium Level 4.6 Chloride Level 95 L Carbon Dioxide 25 Level Anion Gap 23 #H Blood Urea 31 #H Nitrogen Creatinine 6.77 #H Est Glomerular 8 L Filtrat Rate mL/min Glucose Level 114 Calcium Level 6.5 L Total Bilirubin 0.1 L Direct Bilirubin 0.00 Indirect 0.1 Bilirubin Aspartate Amino 253 H Transf (AST/SGOT ) Alanine 392 H Aminotransferase (ALT/SGPT) Alkaline 321 H Phosphatase Total Protein 6.9 Albumin 4.1 Globulin 2.80 Albumin/Globulin 1.46 Ratio Test 02/05/18 12:25 Bedside Glucose 94 Consultation Date/Type/Reason Admit Date/Time Jan 27, 2018 at 04:03 Type of Consult Neurology Requesting Provider: KISHORE HURST MD Date/Time of Note DATE: 02/05/18 TIME: 14:45 24 HR Interval Summary Free Text/Dictation Continues telemetry monitoring. Currently receiving HD. Pt states that she is doing much better than yesterday. Exam Vital Signs Vitals Vital Signs Date Temp Pulse Resp B/P (MAP) Pulse Ox O2 O2 Flow FiO2 Time Delivery Rate 02/05/18 66 12:00 02/05/18 99.9 18 99/58 (72) 93 11:23 02/04/18 Room Air 15:19 Intake and Output 02/04/18 02/04/18 02/05/18 1515:00 23:00 07:00 IntakeIntake Total 580 ml 300 ml BalanceBalance 580 ml 300 ml Exam PE: Gen Appearance: No Apparent Distress HEENT: Normocephalic Cardiovascular: Regular rate Lungs: Clear bilaterally Abdomen: Soft Extremities: Dry NE: The patient was alert though somewhat disoriented. Oriented to self, place, and situation. Language was normal. Fund of knowledge was normal. Pupils were equal and reactive to light. There was no afferent pupillary defect. Visual alvarez were normal. Funduscopic examination was limited.. Extra-ocular movements were full. Ptosis was absent. There was no nystagmus. Facial sensation was normal. Face was symmetric with normal strength. Hearing was intact. Palate movements were normal. Neck strength was normal. There was normal tongue bulk and speed of movement. Tone was normal. Muscle bulk was normal. I did not see fasciculations. Arms and legs were mildly weak and symmetric. . Vibration sensation was normal. Temperature and pinprick sensation was normal. Rapid alternating movements were normal. There was no dysmetria. There was no intention tremor. Gait was deferred due to bedrest. Arm and leg reflexes were 2+ and symmetric. Merlos's sign was absent. Plantar responses were flexor. JASEN GRIFFITH NP Feb 05, 2018 14:45 TAMMI DELEON Feb 06, 2018 06:20
--- NOTE | 2018-02-05 16:25 | NUR ---
RN NOTE PT IS HALLUCINATING SEEING PEOPLE IN HER ROOM, CLAIMS THERE IS A [place] WITH A GUN POINTING IT AT HER, AND SEES LITTLE PEOPLE COMING OUT OF THE VENT. PT REFUSES TO GO BACK IN HER ROOM AND FEELS UNSAFE. CHARGE NURSE MADE AWARE AND CHANGED HER ROOM TO 506. PER PT, I STILL DON'T FEEL SAFE HERE. PT'S GAIT IS U Addendum: 02/05/18 at 1628 by MAXX ACEVEDO RN GAIT IS UNSTEADY AND TRIES TO GET UP. CHAIR ALARM IS ACTIVATED AND SHE IS AWARE THERE IS AN ALARM WHEN SHE GETS UP. WILL CONTINUE TO MONITOR.
[2018-02-05] MEDS: EPOETIN 4000 UNITS/1 ML INJ (ESRD) SC SCH (17:49)
--- NOTE | 2018-02-05 18:10 | NUR ---
EOSS PT IS AX2, CONFUSED, AND HALLUCINATING. DIALYSIS WAS DONE TODAY, 1 LITER OUT. PT REFUSED TO EAT BREAKFAST AND LUNCH. CONTINUED TO ORIENT THE PATIENT, PT CONTINUES TO SEE THINGS. HOURLY ROUNDING DONE, BED ALARM, CALL LIGHT WITHIN REACH, VS WNL.
[2018-02-05] MEDS: MIRTAZAPINE 15 MG TAB PO SCH (18:49)
[2018-02-05] MEDS: HALOPERIDOL 1 MG TAB PO SCH (21:18)
[2018-02-06] VITALS (9 sets, daily range): BP systolic 94–120; BP diastolic 51–62; PULSE 59–88; RESP 18–22
[2018-02-06] MEDS: ACCU-CHEK XX SCH (02:00)
[2018-02-06] MEDS: LEVOTHYROXINE 100 MCG TAB PO SCH (05:42)
[2018-02-06] MEDS: PANTOPRAZOLE (EC) 40 MG TAB PO SCH (05:42)
--- NOTE | 2018-02-06 06:33 | NUR ---
PATIENT STILL WITH ON AND OFF CONFUSION . GETTING OUT OF BED WITH ASSIST ,SON AT BEDSIDE . FALL PRECAUTION IMPLEMENTED . BED LOW POSITION ,ALARM ON AT ALLTIMES . ENCOURAGED TO EAT MORE ,BLOOD SUGAR CONTROLLED CONTINUE TO MONITOR..
--- NOTE | 2018-02-06 07:53 | PN ---
Date/Time of Note Date/Time of Note DATE: 02/06/18 TIME: 07:49 Assessment/Plan VTE Prophylaxis Risk score (from Ns)>0 risk: 3 SCD applied (from Ns): No SCD contraindicated: patient refusal Pharmacological prophylaxis: other (plavix) Lines/Catheters IV Catheter Type (from Nrs): Mid Line Urinary Cath still in place: No Assessment/Plan Hospital Course patient received for dialysis scheduled for second one today will transfer to telemetry when stable Assessment/Plan patient gradually improving still a little confused especially at night.will ask msocial service to evaluate. Cont Hosp Indication/DC Plan: still sick Result Diagram: 02/05/18 0559 02/05/18 0559 Results 24hrs Laboratory Tests Test 02/05/18 07:50 02/05/18 12:25 02/05/18 17:17 02/05/18 21:09 Bedside Glucose 104 94 81 125 Subjective 24 Hr Interval Summary Constitutional: improved Eyes: no complaints ENT: no complaints Respiratory: no complaints Cardiovascular: no complaints Gastrointestinal: no complaints Genitourinary: no complaints Musculoskeletal: no complaints Skin: no complaints Neurologic: confusion Endocrine: no complaints Psychological: confusion, depression Immunologic: no complaints Exam/Review of Systems Vital Signs Vitals Vital Signs Date Temp Pulse Resp B/P (MAP) Pulse Ox O2 O2 Flow FiO2 Time Delivery Rate 02/06/18 98.2 88 18 120/62 97 Nasal 07:24 (81) Cannula Intake and Output 02/05/18 02/05/18 02/06/18 1515:00 23:00 07:00 IntakeIntake Total 200 ml OutputOutput Total 200 ml 1400 ml BalanceBalance -200 ml -1200 ml Exam Constitutional: alert, oriented Psych: confusion Head: normocephalic Eyes: nl conjunctiva ENMT: nl external ears & nose Neck: supple Respiratory: clear to auscultation Cardiovascular: regular rate and rhythm Gastrointestinal: soft Musculoskeletal: nl extremities to inspection Skin: nl turgor Medications Medications Current Medications Acetaminophen (Tylenol Tab) 650 mg Q6H PRN PO MILD PAIN(1-3)OR ELEVATED TEMP [place] [facility] administered on 01/31/18at 00:19; Admin Dose 650 MG; Start 01/27/18 at 13:30; Status Hold Amlodipine Besylate (Norvasc) 5 mg DAILY PO Last administered on 02/04/18at 09:42; Admin Dose 5 MG; Start 01/27/18 at 21:00 Atorvastatin Calcium (Lipitor) 20 mg HS PO Last administered on 02/04/18 20: 51; Admin Dose 20 MG; Start 01/27/18 at 21:00; Status Hold Clopidogrel Bisulfate (plaVIX) 75 mg DAILY PO Last administered on 02/05/18 08:09; Admin Dose 75 MG; Start 01/27/18 at 21:00 Acetaminophen/ Hydrocodone Bitart ([place] (10/325)) 2 tab Q6H PRN PO MODERATE PAIN LEVEL 4-6 Last administered on 02/02/18 17:52; Admin Dose 2 TAB; Start 01/27/18 at 13:30; Status Hold Isosorbide Mononitrate (Imdur) 30 mg DAILY PO Last administered on 02/04/18 09:41; Admin Dose 30 MG; Start 01/28/18 at 21:00 Famotidine (Pepcid) 10 mg DAILY PO Last administered on 02/05/18 08:09; Admin Dose 10 MG; Start 01/27/18 at 21:00 Diagnostic Test (Pha) (Accu-Chek) 1 ea 02 XX Last administered on 02/01/18 02:00; Admin Dose 1 EA; Start 01/28/18 at 02:00 Insulin Aspart (Novolog Insulin Pen) NOVOLOG *MILD* ALGORITHM WITH MEALS BEDTIME SC Last administered on 01/29/18 11:43; Admin Dose 1 UNIT; Start 01/27/18 at 17:35 Metoprolol Tartrate (Lopressor) 25 mg BID PO Last administered on 02/05/18 21:17; Admin Dose 25 MG; Start 01/27/18 at 21:00 Ranolazine (Ranexa) 500 mg Q12 PO Last administered on 02/05/18 21:12; Admin Dose 500 MG; Start 01/27/18 at 21:00 Zolpidem Tartrate (Ambien) 5 mg HS MAY REPEAT X 1 PRN PO INSOMNIA; Start 01/27/18 at 13:30 Diphenhydramine HCl (Benadryl) 25 mg Q6H PRN IV ITCHING Last administered on 01/30/18 08:10; Admin Dose 25 MG; Start 01/27/18 at 14:30 Epoetin Geo (Epogen (Esrd)) 8,000 units AFTER DIALYSIS SC Last administered on 02/05/18at 17:49; Admin Dose 8,000 UNITS; Start 01/28/18 at 08:00 Levothyroxine Sodium (Synthroid) 225 mcg DAILY@06 PO Last administered on 02/06/18at 05:42; Admin Dose 225 MCG; Start 01/29/18 at 06:00 Aspirin (Aspirin) 81 mg DAILY PO Last administered on 02/05/18at 08:09; Admin Dose 81 MG; Start 01/28/18 at 13:00 Miscellaneous Information 1 ea NOTE XX ; Start 01/28/18 at 14:00 Glucose (Glutose) 15 gm Q15M PRN PO DECREASED GLUCOSE; Start 01/28/18 at 14:00 Glucose (Glutose) 22.5 gm Q15M PRN PO DECREASED GLUCOSE; Start 01/28/18 at 14:00 Dextrose (D50w Syringe) 25 ml Q15M PRN IV DECREASED GLUCOSE; Start 01/28/18 at 14:00 Dextrose (D50w Syringe) 50 ml Q15M PRN IV DECREASED GLUCOSE; Start 01/28/18 at 14:00 Glucagon (Glucagen) 1 mg Q15M PRN IM DECREASED GLUCOSE; Start 01/28/18 at 14:00 Glucose (Glutose) 15 gm Q15M PRN BUCCAL DECREASED GLUCOSE; Start 01/28/18 at 14:00 Sevelamer Carbonate (Renvela) 2.4 gm WITH MEALS GTB Last administered on 02/05/18at 08:08; Admin Dose 2.4 GM; Start 01/29/18 at 11:30 Cinacalcet (Sensipar) 60 mg WITH BREAKFAST PO Last administered on 02/05/18at 08:09; Admin Dose 60 MG; Start 01/30/18 at 09:00 Ondansetron HCl (Zofran Inj) 4 mg Q4H PRN IV NAUSEA AND/OR VOMITING Last administered on 01/31/18at 15:14; Admin Dose 4 MG; Start 01/30/18 at 20:30 Metoclopramide HCl (Reglan) 10 mg Q6H PRN IV NAUSEA Last administered on 01/31/18at 15:14; Admin Dose 10 MG; Start 01/31/18 at 11:00 Escitalopram Oxalate (Lexapro) 10 mg DAILY PO Last administered on 02/05/18at 08:09; Admin Dose 10 MG; Start 01/31/18 at 11:30 Pantoprazole (Protonix Tab) 40 mg DAILY@06 PO Last administered on 02/06/18at 05:42; Admin Dose 40 MG; Start 02/01/18 at 12:00 Albumin Human 100 ml @ 100 mls/hr DURING DIALYSIS PRN IV BLOOD PRESSURE SUPPORT Last administered on 02/01/18at 19:12; Admin Dose 100 MLS/HR; Start 02/01/18 at 18:30 Haloperidol (Haldol) 2 mg Q6H PRN PO Hallucination; Start 02/03/18 at 16:00 Mirtazapine (Remeron) 7.5 mg PC DINNER PO Last administered on 02/04/18at 17:56; Admin Dose 7.5 MG; Start 02/03/18 at 18:55 Haloperidol (Haldol) 2 mg QHS PO Last administered on 02/05/18at 21:18; Admin Dose 2 MG; Start 02/03/18 at 21:00 KISHORE HURST MD Feb 06, 2018 07:53
[2018-02-06] MEDS: AMLODIPINE 5 MG TAB PO SCH (09:00)
[2018-02-06] MEDS: ISOSORBIDE MONONITRATE(SR)30 MG TAB PO SCH (09:00)
[2018-02-06] MEDS: METOPROLOL 25 MG TAB PO SCH ×2 (09:00→20:51)
[2018-02-06] MEDS: ESCITALOPRAM 10 MG TAB PO SCH (09:03)
[2018-02-06] MEDS: CLOPIDOGREL 75 MG TAB PO SCH (09:03)
[2018-02-06] MEDS: SEVELAMER CARBONATE 2.4 GM PKT GTB SCH ×3 (09:03→17:56)
[2018-02-06] MEDS: CINACALCET 30 MG TAB PO SCH (09:03)
[2018-02-06] MEDS: RANOLAZINE (SR) 500 MG TAB PO SCH ×2 (09:04→20:54)
[2018-02-06] MEDS: ASPIRIN 81 MG TAB PO SCH (09:04)
[2018-02-06] MEDS: FAMOTIDINE 20 MG TAB PO SCH (09:06)
[2018-02-06] MEDS: INSULIN ASPART [NOVOLOG] 3 ML PEN SC SCH ×4 (09:30→21:00)
--- NOTE | 2018-02-06 09:49 | NUR ---
RN NOTES: SPOKE WITH BERNARDA FROM [facility]. PT WILL HAVE DIALYSIS TOMORROW. CONFIRMATION#:[id number]
--- NOTE | 2018-02-06 10:26 | PN ---
DATE: 02/06/2018 SUBJECTIVE: The patient remains confused. No other events overnight. The patient had hemodialysis yesterday, tolerated well. OBJECTIVE: VITAL SIGNS: Blood pressure is 120/62, pulse 60, temperature 98.2. HEENT: Head is normocephalic. NECK: Supple. HEART: Regular rate. LUNGS: Show diminished breath sounds at the base. ABDOMEN: Soft, nontender to palpation without rebound or guarding. EXTREMITIES: Negative for clubbing, cyanosis, no edema. DERMATOLOGIC: No rashes. MUSCULOSKELETAL: No joint effusion. NEUROLOGIC: No change in exam. MEDICATIONS: Reviewed. LABORATORY DATA: Has been reviewed. ASSESSMENT AND PLAN: 1. End-stage renal disease. Plan is for hemodialysis tomorrow. 2. Hyperkalemia, improved. Continue dialysis on low potassium bath. 3. Anemia. Continue to monitor hemoglobin and hematocrit levels. Continue Epogen. 4. Mineral bone disorder, monitor calcium and phosphorus levels. Continue phos binders. Continue S ensipar. 5. Acute encephalopathy, etiology toxic metabolic. Continue current medical management. Mental sta tus has been improving. 6. Diabetes. Continue current insulin regimen. 7. Coronary artery disease, with history of PCI. Continue medical management. Dictated By: HARVEY LUCIO DO NR/NTS Conf#: [id number] DID#: [id number] CC: KEZIA COLBERT MD;*EndCC*
--- NOTE | 2018-02-06 10:35 | NUR ---
PT NOTE [facility] Patient: Christine Youngblood : 1965 Age/Sex: 52/F Unit#: [id number] Room/Bed: 506/A User: Yaritza Scott PTA Date: 02/06/18 10:35 Type: PT Technical Record Therapy day number 2 Subjective Denies pain Pain Scale NUMERIC Pain Intensity 0 (0-10) Patient Stated Goal for Pain Relief 0 (0-10) Pain Level Comment denied pain Exercise Assessment Label Bilat Lower Extremity Exercise Type Active ROM Additional Exercise Comments Selena, CATRINA, fran munson 2x10 Exercise Start Time 10:04 Exercise End Time 10:18 Total Exercise Time 14 min (8-127) Transfer Training Start Time 10:14 Supine to Sit Minimum Assist Transfer Sit to Stand Ability Moderate Assist Bed Mobility Sit to Supine Minimum Assist Additional Mobility Comments STS x4 Transfer Training End Time 10:35 Total Transfer Training Time 21 min (8-127) Gait Assist Levels Moderate Assist Assistive Devices Front Wheel Walker Ambulation Distance 0 feet Additional Gait Comments pregait; lateral weight shifting, small side step Static Sitting Balance Fair plus Dynamic Sitting Balance Fair Standing Static Balance Fair minus Dynamic Standing Balance Poor plus Additional Balance Assessments Comments FWW Safety Judgement Fair Activity Tolerance Fair Post Treatment Pain Intensity 0 0-10 Variance Documentation See note Additional Post Treatment Comment B knee buckling Total Treament Time 35 min (8-127) Total Minutes 35 Total Units 2 PT Technical Record Comment S: CORRIE Mitchell cleared pt for PT. Pt denied pain and agreeable to tx O: Received pt in semifowler w/ visitor present in room. See above for assist levels. Performed sit to stand x4 and noted pt bilateral arms and legs shaky. Blocked bilateral knees due to buckling, LLE>RLE. Performed pregait training; lateral weight shifting and side step. Pt unable to take side steps d/t weakness. Returned pt back to bed. Positioned pt to comfort in semifowler. Call light/phone within reach. Bed alarm on. Needs met A: Fair tolerance to tx. Pt confused. Min/ModA throughout tx. Required blocking of bilateral knee due to buckling. 2PA sit to stand for safety P: Continue w/ POC and progress as tolerated.
--- NOTE | 2018-02-06 11:54 | CONS ---
Date/Time of Note Date/Time of Note DATE: 02/06/18 TIME: 11:53 Assessment/Plan Assessment/Plan Assessment/Plan Shortness of breath likely secondary to volume overload from missed hemodialysis, resolved End-stage renal disease on hemodialysis CAD with history of PCI Hypertension Diabetes Dyslipidemia -Patient denies any chest pain, shortness of breath or palpitations. Overall feeling much better. Blood pressure trend remained stable episodes of blood pressure on the lower side, holding parameters on antihypertensives, would decrease dose of Norvasc.. Continue antiplatelet therapy, statin therapy as long as LFTs continue to improve. DC planning Result Diagram: 02/05/18 0559 02/05/18 0559 Results 24hrs Laboratory Tests Test 02/05/18 12:25 02/05/18 17:17 02/05/18 21:09 02/06/18 08:05 Bedside Glucose 94 81 125 178 Test 02/06/18 09:02 Bedside Glucose 172 Consultation Date/Type/Reason Admit Date/Time Jan 27, 2018 at 04:03 Initial Consult Date Type of Consult cv Requesting Provider: KISHORE HURST MD 24 HR Interval Summary Free Text/Dictation Denies chest pain, shortness of breath or palpitations. Overall feeling better with more energy Exam/Review of Systems Vital Signs Vitals Vital Signs Date Temp Pulse Resp B/P (MAP) Pulse Ox O2 O2 Flow FiO2 Time Delivery Rate 02/06/18 98.0 63 22 100/53 100 Room Air 11:24 (69) Intake and Output 02/05/18 02/05/18 02/06/18 1515:00 23:00 07:00 IntakeIntake Total 200 ml OutputOutput Total 200 ml 1400 ml BalanceBalance -200 ml -1200 ml Exam No apparent distress Constitutional: alert, oriented Head: normocephalic Respiratory: other (Coarse breath sounds bilaterally, no wheezing) Cardiovascular: regular rate and rhythm, other (S1-S2 heard) Gastrointestinal: soft, non-tender, bowel sounds Extremities: other (No significant edema) Medications Medications Current Medications Acetaminophen (Tylenol Tab) 650 mg Q6H PRN PO MILD PAIN(1-3)OR ELEVATED TEMP Last administered on 01/31/18at 00:19; Admin Dose 650 MG; Start 01/27/18 at 13: 30; Status Hold Amlodipine Besylate (Norvasc) 5 mg DAILY PO Last administered on 02/04/18 09:42; Admin Dose 5 MG; Start 01/27/18 at 21:00 Atorvastatin Calcium (Lipitor) 20 mg HS PO Last administered on 02/04/18 20:51; Admin Dose 20 MG; Start 01/27/18 at 21:00; Status Hold Clopidogrel Bisulfate (plaVIX) 75 mg DAILY PO Last administered on 02/06/18 09:03; Admin Dose 75 MG; Start 01/27/18 at 21:00 Acetaminophen/ Hydrocodone Bitart ([place] (10/325)) 2 tab Q6H PRN PO MODERATE PAIN LEVEL 4-6 Last administered on 02/02/18 17:52; Admin Dose 2 TAB; Start 01/27/18 at 13:30; Status Hold Isosorbide Mononitrate (Imdur) 30 mg DAILY PO Last administered on 02/04/18 09:41; Admin Dose 30 MG; Start 01/28/18 at 21:00 Famotidine (Pepcid) 10 mg DAILY PO Last administered on 02/06/18 09:06; Admin Dose 10 MG; Start 01/27/18 at 21:00 Diagnostic Test (Pha) (Accu-Chek) 1 ea 02 XX Last administered on 02/01/18 02:00; Admin Dose 1 EA; Start 01/28/18 at 02:00 Insulin Aspart (Novolog Insulin Pen) NOVOLOG *MILD* ALGORITHM WITH MEALS BEDTIME SC Last administered on 02/06/18 09:30; Admin Dose 1 UNIT; Start 01/27/18 at 17:35 Metoprolol Tartrate (Lopressor) 25 mg BID PO Last administered on 02/05/18 21:17; Admin Dose 25 MG; Start 01/27/18 at 21:00 Ranolazine (Ranexa) 500 mg Q12 PO Last administered on 02/06/18 09:04; Admin Dose 500 MG; Start 01/27/18 at 21:00 Zolpidem Tartrate (Ambien) 5 mg HS MAY REPEAT X 1 PRN PO INSOMNIA; Start 01/27/18 at 13:30 Diphenhydramine HCl (Benadryl) 25 mg Q6H PRN IV ITCHING Last administered on 01/30/18 08:10; Admin Dose 25 MG; Start 01/27/18 at 14:30 Epoetin Geo (Epogen (Esrd)) 8,000 units AFTER DIALYSIS SC Last administered on 02/05/18at 17:49; Admin Dose 8,000 UNITS; Start 01/28/18 at 08:00 Levothyroxine Sodium (Synthroid) 225 mcg DAILY@06 PO Last administered on 02/06/18at 05:42; Admin Dose 225 MCG; Start 01/29/18 at 06:00 Aspirin (Aspirin) 81 mg DAILY PO Last administered on 02/06/18at 09:04; Admin Dose 81 MG; Start 01/28/18 at 13:00 Miscellaneous Information 1 ea NOTE XX ; Start 01/28/18 at 14:00 Glucose (Glutose) 15 gm Q15M PRN PO DECREASED GLUCOSE; Start 01/28/18 at 14:00 Glucose (Glutose) 22.5 gm Q15M PRN PO DECREASED GLUCOSE; Start 01/28/18 at 14:00 Dextrose (D50w Syringe) 25 ml Q15M PRN IV DECREASED GLUCOSE; Start 01/28/18 at 14:00 Dextrose (D50w Syringe) 50 ml Q15M PRN IV DECREASED GLUCOSE; Start 01/28/18 at 14:00 Glucagon (Glucagen) 1 mg Q15M PRN IM DECREASED GLUCOSE; Start 01/28/18 at 14:00 Glucose (Glutose) 15 gm Q15M PRN BUCCAL DECREASED GLUCOSE; Start 01/28/18 at 14:00 Sevelamer Carbonate (Renvela) 2.4 gm WITH MEALS GTB Last administered on 02/06/18at 09:03; Admin Dose 2.4 GM; Start 01/29/18 at 11:30 Cinacalcet (Sensipar) 60 mg WITH BREAKFAST PO Last administered on 02/06/18at 09:03; Admin Dose 60 MG; Start 01/30/18 at 09:00 Ondansetron HCl (Zofran Inj) 4 mg Q4H PRN IV NAUSEA AND/OR VOMITING Last administered on 01/31/18at 15:14; Admin Dose 4 MG; Start 01/30/18 at 20:30 Metoclopramide HCl (Reglan) 10 mg Q6H PRN IV NAUSEA Last administered on 01/31/18at 15:14; Admin Dose 10 MG; Start 01/31/18 at 11:00 Escitalopram Oxalate (Lexapro) 10 mg DAILY PO Last administered on 02/06/18at 09:03; Admin Dose 10 MG; Start 01/31/18 at 11:30 Pantoprazole (Protonix Tab) 40 mg DAILY@06 PO Last administered on 02/06/18at 05:42; Admin Dose 40 MG; Start 02/01/18 at 12:00 Albumin Human 100 ml @ 100 mls/hr DURING DIALYSIS PRN IV BLOOD PRESSURE SUPPORT Last administered on 02/01/18at 19:12; Admin Dose 100 MLS/HR; Start 02/01/18 at 18:30 Haloperidol (Haldol) 2 mg Q6H PRN PO Hallucination; Start 02/03/18 at 16:00 Mirtazapine (Remeron) 7.5 mg PC DINNER PO Last administered on 02/04/18at 17:56; Admin Dose 7.5 MG; Start 02/03/18 at 18:55 Haloperidol (Haldol) 2 mg QHS PO Last administered on 02/05/18at 21:18; Admin Dose 2 MG; Start 02/03/18 at 21:00 Heri Schaefer DO Feb 06, 2018 11:54
--- NOTE | 2018-02-06 13:35 | CONS ---
Assessment/Plan Assessment/Plan Hospital Course A: 52 yo F with ESRD on HD and other comorbidities... who initially presented for evaluation of shortness of breath and other sx... Of note, she is reported to have missed several hemodialysis sessions prior to presentation... Neurology is consulted to evaluate altered mental status. Most clinically consistent with an acute toxic metabolic encephalopathy Stroke is unlikely. Seizure is unlikely. Head CT is unrevealing. P: OK to defer additional neuroimaging for now Cont medical management per primary Reorient as necessary Limit sedating medications where possible PT/OT as tolerated Will follow clinically Result Diagram: 02/05/18 0559 02/05/18 0559 Results 24hrs Laboratory Tests Test 02/05/18 17:17 02/05/18 21:09 02/06/18 08:05 02/06/18 09:02 Bedside Glucose 81 125 178 172 Test 02/06/18 11:48 Bedside Glucose 187 Consultation Date/Type/Reason Admit Date/Time Jan 27, 2018 at 04:03 Type of Consult Neurology Requesting Provider: KISHORE HURST MD Date/Time of Note DATE: 02/06/18 TIME: 13:35 24 HR Interval Summary Free Text/Dictation Continues telemetry monitoring. Pt states that she's doing okay but feels a little weaker today since she hasn't been out of bed. Exam Vital Signs Vitals Vital Signs Date Temp Pulse Resp B/P (MAP) Pulse Ox O2 O2 Flow FiO2 Time Delivery Rate 02/06/18 63 12:10 02/06/18 98.0 22 100/53 100 Room Air 11:24 (69) Intake and Output 02/05/18 02/05/18 02/06/18 1515:00 23:00 07:00 IntakeIntake Total 200 ml OutputOutput Total 200 ml 1400 ml BalanceBalance -200 ml -1200 ml Exam PE: Gen Appearance: No Apparent Distress HEENT: Normocephalic Cardiovascular: Regular rate Lungs: Clear bilaterally Abdomen: Soft Extremities: Dry NE: The patient was alert though somewhat disoriented. Oriented to self, place, and situation. Language was normal. Fund of knowledge was normal. Pupils were equal and reactive to light. There was no afferent pupillary defect. Visual alvarez were normal. Funduscopic examination was limited.. Extra-ocular movements were full. Ptosis was absent. There was no nystagmus. Facial sensation was normal. Face was symmetric with normal strength. Hearing was intact. Palate movements were normal. Neck strength was normal. There was normal tongue bulk and speed of movement. Tone was normal. Muscle bulk was normal. I did not see fasciculations. Arms and legs were mildly weak and symmetric. . Vibration sensation was normal. Temperature and pinprick sensation was normal. Rapid alternating movements were normal. There was no dysmetria. There was no intention tremor. Gait was deferred due to bedrest. Arm and leg reflexes were 2+ and symmetric. Merlos's sign was absent. Plantar r esponses were flexor. JASEN GRIFFITH NP Feb 06, 2018 13:35 TAMMI DELEON Feb 06, 2018 18:52
--- NOTE | 2018-02-06 18:36 | NUR ---
EOSS: NO ACUTE DISTRESS DURING DAY SHIFT. PT IS AOX1-2, CONFUSED/HALLUCINATING, DENIES PAIN, RESPIRATIONS UNLABORED.ACCUCHECKS HAVE BEEN DONE ACHS. ALL MEDICATIONS HAVE BEEN GIVEN SCHEDULED. ALL PT'S NEEDS HAVE BEEN MET. WILL ENDORSE TO LEAD TELLER NURSE.
[2018-02-06] MEDS: MIRTAZAPINE 15 MG TAB PO SCH (18:55)
[2018-02-06] MEDS: HALOPERIDOL 1 MG TAB PO SCH (20:55)
[2018-02-07] VITALS (26 sets, daily range): BP systolic 89–173; BP diastolic 43–125; PULSE 62–78; RESP 16–19
[2018-02-07] MEDS: ACCU-CHEK XX SCH (02:00)
--- NOTE | 2018-02-07 06:00 | NUR ---
End of Shift Summary No change in pt condition. See pt assessment and EMAR.
[2018-02-07] MEDS: INSULIN ASPART [NOVOLOG] 3 ML PEN SC SCH ×4 (07:55→20:16)
--- NOTE | 2018-02-07 08:35 | PN ---
Date/Time of Note Date/Time of Note DATE: 02/07/18 TIME: 08:34 Assessment/Plan VTE Prophylaxis Risk score (from Ns)>0 risk: 6 SCD applied (from [facility] [place]): No SCD contraindicated: other Pharmacological prophylaxis: other Lines/Catheters IV Catheter Type (from [facility]): Mid Line Urinary Cath still in place: No Assessment/Plan Hospital Course renal follow up SUBJECTIVE: d/w Dr Krueger. No other events overnight. OBJECTIVE: VITAL SIGNS: Blood pressure is 120/62, pulse 60, temperature 98.2. HEENT: Head is normocephalic. NECK: Supple. HEART: Regular rate. LUNGS: Show diminished breath sounds at the base. ABDOMEN: Soft, nontender to palpation without rebound or guarding. EXTREMITIES: Negative for clubbing, cyanosis, no edema. DERMATOLOGIC: No rashes. MUSCULOSKELETAL: No joint effusion. NEUROLOGIC: No change in exam. MEDICATIONS: Reviewed. LABORATORY DATA: Has been reviewed. ASSESSMENT AND PLAN: 1. End-stage renal disease. continue hd today 2. Hyperkalemia, improved. Continue dialysis on low potassium bath. 3. Anemia. Continue to monitor hemoglobin and hematocrit levels. Continue Epogen. 4. Mineral bone disorder, monitor calcium and phosphorus levels. Continue phos binders. Continue Sensipar. 5. Acute encephalopathy, etiology toxic metabolic. Continue current medical management. Mental status has been improving. 6. Diabetes. Continue current insulin regimen. 7. Coronary artery disease, with history of PCI. Continue medical management. Result Diagram: 02/07/18 0549 02/07/18 0549 Results 24hrs Laboratory Tests Test 02/06/18 09:02 02/06/18 11:48 02/06/18 17:33 02/06/18 21:53 Bedside Glucose 172 187 130 133 Test 02/07/18 05:49 White Blood 7.8 # Count Red Blood Count 3.66 L Hemoglobin 10.8 L Hematocrit 33.6 L Mean Corpuscular 91.8 Volume Mean Corpuscular 29.5 Hemoglobin Mean Corpuscular 32.1 Hemoglobin Nuha nt Red Cell 18.7 H Distribution Width Platelet Count 82 #L Mean Platelet 11.7 H Volume Immature 0.600 H Granulocytes % Neutrophils % 64.7 Lymphocytes % 20.3 Monocytes % 13.8 H Eosinophils % 0.3 Basophils % 0.3 Nucleated Red 4.1 H Blood Cells % Immature 0.050 H Granulocytes # Neutrophils # 5.0 Lymphocytes # 1.6 Monocytes # 1.1 H Eosinophils # 0.0 Basophils # 0.0 Nucleated Red 0.3 H Blood Cells # Sodium Level 144 Potassium Level 4.8 Chloride Level 98 Carbon Dioxide 23 Level Anion Gap 23 H Blood Urea 37 H Nitrogen Creatinine 6.59 H Est Glomerular 8 L Filtrat Rate mL/min Glucose Level 113 Calcium Level 6.2 L Total Bilirubin 0.3 Direct Bilirubin 0.20 # Indirect 0.1 Bilirubin Aspartate Amino 1283 H Transf (AST/SGOT ) Alanine 1343 H Aminotransferase (ALT/SGPT) Alkaline 440 H Phosphatase Total Protein 6.7 Albumin 3.8 Globulin 2.90 Albumin/Globulin 1.31 Ratio Exam/Review of Systems Vital Signs Vitals Vital Signs Date Temp Pulse Resp B/P (MAP) Pulse Ox O2 O2 Flow FiO2 Time Delivery Rate 02/07/18 63 08:14 02/07/18 97.9 18 89/51 (64) 95 Room Air 07:20 Intake and Output 02/06/18 02/06/18 02/07/18 1515:00 23:00 07:00 IntakeIntake Total 510 ml 200 ml BalanceBalance 510 ml 200 ml Medications Medications Current Medications Acetaminophen (Tylenol Tab) 650 mg Q6H PRN PO MILD PAIN(1-3)OR ELEVATED TEMP Last administered on 01/31/18at 00:19; Admin Dose 650 MG; Start 01/27/18 at 13:30; Status Hold Atorvastatin Calcium (Lipitor) 20 mg HS PO Last administered on 02/04/18at 20:51; Admin Dose 20 MG; Start 01/27/18 at 21:00; Status Hold Clopidogrel Bisulfate (plaVIX) 75 mg DAILY PO Last administered on 02/06/18 09:03; Admin Dose 75 MG; Start 01/27/18 at 21:00 Acetaminophen/ Hydrocodone Bitart (Ducor (10/325)) 2 tab Q6H PRN PO MODERATE PAIN LEVEL 4-6 Last administered on 02/02/18 17:52; Admin Dose 2 TAB; Start 01/27/18 at 13:30; Status Hold Isosorbide Mononitrate (Imdur) 30 mg DAILY PO Last administered on 02/04/18 09:41; Admin Dose 30 MG; Start 01/28/18 at 21:00 Famotidine (Pepcid) 10 mg DAILY PO Last administered on 02/06/18 09:06; Admin Dose 10 MG; Start 01/27/18 at 21:00 Diagnostic Test (Pha) (Accu-Chek) 1 ea 02 XX Last administered on 02/01/18at 02:00; Admin Dose 1 EA; Start 01/28/18 at 02:00 Insulin Aspart (Novolog Insulin Pen) NOVOLOG *MILD* ALGORITHM WITH MEALS BEDTIME SC Last administered on 02/06/18at 11:55; Admin Dose 2 UNIT; Start 01/27/18 at 17:35 Metoprolol Tartrate (Lopressor) 25 mg BID PO Last administered on 02/05/18 21:17; Admin Dose 25 MG; Start 01/27/18 at 21:00 Ranolazine (Ranexa) 500 mg Q12 PO Last administered on 02/06/18 20:54; Admin Dose 500 MG; Start 01/27/18 at 21:00 Zolpidem Tartrate (Ambien) 5 mg HS MAY REPEAT X 1 PRN PO INSOMNIA; Start 01/27/18 at 13:30 Diphenhydramine HCl (Benadryl) 25 mg Q6H PRN IV ITCHING Last administered on 01/30/18at 08:10; Admin Dose 25 MG; Start 01/27/18 at 14:30 Epoetin Geo (Epogen (Esrd)) 8,000 units AFTER DIALYSIS SC Last administered on 02/05/18at 17:49; Admin Dose 8,000 UNITS; Start 01/28/18 at 08:00 Levothyroxine Sodium (Synthroid) 225 mcg DAILY@06 PO Last administered on 02/06/18at 05:42; Admin Dose 225 MCG; Start 01/29/18 at 06:00 Aspirin (Aspirin) 81 mg DAILY PO Last administered on 02/06/18 09:04; Admin Dose 81 MG; Start 01/28/18 at 13:00 Miscellaneous Information 1 ea NOTE XX ; Start 01/28/18 at 14:00 Glucose (Glutose) 15 gm Q15M PRN PO DECREASED GLUCOSE; Start 01/28/18 at 14:00 Glucose (Glutose) 22.5 gm Q15M PRN PO DECREASED GLUCOSE; Start 01/28/18 at 14:00 Dextrose (D50w Syringe) 25 ml Q15M PRN IV DECREASED GLUCOSE; Start 01/28/18 at 14:00 Dextrose (D50w Syringe) 50 ml Q15M PRN IV DECREASED GLUCOSE; Start 01/28/18 at 14:00 Glucagon (Glucagen) 1 mg Q15M PRN IM DECREASED GLUCOSE; Start 01/28/18 at 14:00 Glucose (Glutose) 15 gm Q15M PRN BUCCAL DECREASED GLUCOSE; Start 01/28/18 at 14:00 Sevelamer Carbonate (Renvela) 2.4 gm WITH MEALS GTB Last administered on 02/06/18 17:56; Admin Dose 2.4 GM; Start 01/29/18 at 11:30 Cinacalcet (Sensipar) 60 mg WITH BREAKFAST PO Last administered on 02/06/18 09:03; Admin Dose 60 MG; Start 01/30/18 at 09:00 Ondansetron HCl (Zofran Inj) 4 mg Q4H PRN IV NAUSEA AND/OR VOMITING Last administered on 01/31/18at 15:14; Admin Dose 4 MG; Start 01/30/18 at 20:30 Metoclopramide HCl (Reglan) 10 mg Q6H PRN IV NAUSEA Last administered on 01/31/18 15:14; Admin Dose 10 MG; Start 01/31/18 at 11:00 Pantoprazole (Protonix Tab) 40 mg DAILY@06 PO Last administered on 02/06/18 05:42; Admin Dose 40 MG; Start 02/01/18 at 12:00 Albumin Human 100 ml @ 100 mls/hr DURING DIALYSIS PRN IV BLOOD PRESSURE SUPPORT Last administered on 02/01/18at 19:12; Admin Dose 100 MLS/HR; Start 02/01/18 at 18:30 Haloperidol (Haldol) 2 mg Q6H PRN PO Hallucination Last administered on 02/06/18at 16:47; Admin Dose 2 MG; Start 02/03/18 at 16:00 Mirtazapine (Remeron) 7.5 mg PC DINNER PO Last administered on 02/04/18 17:56; Admin Dose 7.5 MG; Start 02/03/18 at 18:55 Haloperidol (Haldol) 2 mg QHS PO Last administered on 12/28/18at 20:55; Admin Dose 2 MG; Start 02/03/18 at 21:00 Amlodipine Besylate (Norvasc) 2.5 mg DAILY PO ; Start 02/07/18 at 09:00 DEANDRE ROCHE DO Feb 07, 2018 08:35
[2018-02-07] MEDS: PANTOPRAZOLE (EC) 40 MG TAB PO SCH (10:09)
[2018-02-07] MEDS: LEVOTHYROXINE 100 MCG TAB PO SCH (10:09)
[2018-02-07] MEDS: SEVELAMER CARBONATE 2.4 GM PKT GTB SCH ×3 (10:53→17:49)
[2018-02-07] MEDS: ISOSORBIDE MONONITRATE(SR)30 MG TAB PO SCH (10:53)
[2018-02-07] MEDS: ASPIRIN 81 MG TAB PO SCH (10:53)
[2018-02-07] MEDS: METOPROLOL 25 MG TAB PO SCH ×2 (10:54→22:44)
[2018-02-07] MEDS: FAMOTIDINE 20 MG TAB PO SCH (10:55)
[2018-02-07] MEDS: AMLODIPINE 2.5 MG TAB PO SCH (10:55)
[2018-02-07] MEDS: CLOPIDOGREL 75 MG TAB PO SCH (10:55)
[2018-02-07] MEDS: RANOLAZINE (SR) 500 MG TAB PO SCH ×2 (10:56→22:43)
[2018-02-07] MEDS: CINACALCET 30 MG TAB PO SCH (10:56)
--- NOTE | 2018-02-07 10:56 | PN ---
Date/Time of Note Date/Time of Note DATE: 02/07/18 TIME: 10:52 Assessment/Plan VTE Prophylaxis Risk score (from Ns)>0 risk: 3 SCD applied (from Ns): Yes Pharmacological prophylaxis: heparin Lines/Catheters IV Catheter Type (from [facility]): Mid Line Urinary Cath still in place: No Assessment/Plan Problems: (1) Hypocalcemia Status: Acute Comment: At this time her mental status is not normal and she been having hallucinations. At the time of admission her calciums were normal and her ionized calcium was normal. However her albumin is held up and her serum calciums have dropped significantly. I am not entirely clear what is doing this and repeating labs with an ionized calcium today. If I was forced to speculate before I have the results back it may be that the patient was not compliant with her Sensipar as an outpatient since we have been giving it to her here this is caused a change in her metabolic status. (2) Secondary hyperparathyroidism of renal origin Status: Chronic Comment: Recheck labs. Please note her parathyroid hormone levels at the time of coming in were not consistent with an elevated parathyroid state (3) Abnormal liver function tests Status: Acute Comment: This is an acute event. I am going to check acute hepatitis serologies and a liver ultrasound (4) Major depressive disorder, single episode, severe without psychotic features Status: Chronic Comment: Noted and on medications. (5) End stage renal disease on dialysis due to type 2 diabetes mellitus Status: Chronic Comment: For dialysis today. Dialysis to be adjusted to help compensate for metabolic abnormalities (6) DM (diabetes mellitus), type 2 Status: Chronic Comment: Adequate glycemic control Qualifiers: Diabetes mellitus detention insulin use: with detention use Diabetes mellitus complication status: with kidney complications Diabetes mellitus complication detail: with chronic kidney disease Chronic kidney disease stage: on chronic dialysis Qualified Codes: E11.22 - Type 2 diabetes mellitus with diabetic chronic kidney disease; N18.6 - End stage renal disease; Z79.4 - FPC (current) use of insulin; Z99.2 - Dependence on renal dialysis (7) Papillary thyroid carcinoma Onset Date: ~ 02/2013 Status: Chronic Comment: Noted. Quiescent (8) Hyperlipidemia Status: Chronic Comment: Continue statin therapy Qualifiers: Hyperlipidemia type: pure hypercholesterolemia Qualified Codes: E78.00 - Pure hypercholesterolemia, unspecified Result Diagram: 02/07/18 0549 02/07/18 0549 Results 24hrs Laboratory Tests Test 02/06/18 11:48 02/06/18 17:33 02/06/18 21:53 02/07/18 05:49 Bedside Glucose 187 130 133 White Blood 7.8 # Count Red Blood Count 3.66 L Hemoglobin 10.8 L Hematocrit 33.6 L Mean Corpuscular 91.8 Volume Mean Corpuscular 29.5 Hemoglobin Mean Corpuscular 32.1 Hemoglobin Nuha nt Red Cell 18.7 H Distribution Width Platelet Count 82 #L Mean Platelet 11.7 H Volume Immature 0.600 H Granulocytes % Neutrophils % 64.7 Lymphocytes % 20.3 Monocytes % 13.8 H Eosinophils % 0.3 Basophils % 0.3 Nucleated Red 4.1 H Blood Cells % Immature 0.050 H Granulocytes # Neutrophils # 5.0 Lymphocytes # 1.6 Monocytes # 1.1 H Eosinophils # 0.0 Basophils # 0.0 Nucleated Red 0.3 H Blood Cells # Sodium Level 144 Potassium Level 4.8 Chloride Level 98 Carbon Dioxide 23 Level Anion Gap 23 H Blood Urea 37 H Nitrogen Creatinine 6.59 H Est Glomerular 8 L Filtrat Rate mL/min Glucose Level 113 Calcium Level 6.2 L Total Bilirubin 0.3 Direct Bilirubin 0.20 # Indirect 0.1 Bilirubin Aspartate Amino 1283 H Transf (AST/SGOT ) Alanine 1343 H Aminotransferase (ALT/SGPT) Alkaline 440 H Phosphatase Total Protein 6.7 Albumin 3.8 Globulin 2.90 Albumin/Globulin 1.31 Ratio Test 02/07/18 08:24 Bedside Glucose 104 Subjective 24 Hr Interval Summary Free Text/Dictation Patient sleeping in bed and not easily aroused. Please note she had been given a sedative. Please see the calcium levels in the labs section Subjective hx not possible: pt non-verbal Exam/Review of Systems Vital Signs Vitals Vital Signs Date Temp Pulse Resp B/P (MAP) Pulse Ox O2 O2 Flow FiO2 Time Delivery Rate 02/07/18 106/64 09:16 (78) 02/07/18 63 08:14 02/07/18 97.9 18 95 Room Air 07:20 Intake and Output 02/06/18 02/06/18 02/07/18 1515:00 23:00 07:00 IntakeIntake Total 510 ml 200 ml BalanceBalance 510 ml 200 ml Exam Constitutional: non-verbal Respiratory: clear to auscultation, normal air movement Cardiovascular: regular rate and rhythm, nl pulses Medications Medications Current Medications Acetaminophen (Tylenol Tab) 650 mg Q6H PRN PO MILD PAIN(1-3)OR ELEVATED TEMP Last administered on 01/31/18 00:19; Admin Dose 650 MG; Start 01/27/18 at 13:30; Status Hold Atorvastatin Calcium (Lipitor) 20 mg HS PO Last administered on 02/04/18 20:51; Admin Dose 20 MG; Start 01/27/18 at 21:00; Status Hold Clopidogrel Bisulfate (plaVIX) 75 mg DAILY PO Last administered on 02/06/18 09:03; Admin Dose 75 MG; Start 01/27/18 at 21:00 Acetaminophen/ Hydrocodone Bitart (Vesuvius (10/325)) 2 tab Q6H PRN PO MODERATE PAIN LEVEL 4-6 Last administered on 02/02/18 17:52; Admin Dose 2 TAB; Start 01/27/18 at 13:30; Status Hold Isosorbide Mononitrate (Imdur) 30 mg DAILY PO Last administered on 02/04/18 09:41; Admin Dose 30 MG; Start 01/28/18 at 21:00 Famotidine (Pepcid) 10 mg DAILY PO Last administered on 02/06/18 09:06; Admin Dose 10 MG; Start 01/27/18 at 21:00 Diagnostic Test (Pha) (Accu-Chek) 1 ea 02 XX Last administered on 02/01/18at 02:00; Admin Dose 1 EA; Start 01/28/18 at 02:00 Insulin Aspart (Novolog Insulin Pen) NOVOLOG *MILD* ALGORITHM WITH MEALS BEDTIME SC Last administered on 02/06/18 11:55; Admin Dose 2 UNIT; Start 01/27/18 at 17:35 Metoprolol Tartrate (Lopressor) 25 mg BID PO Last administered on 02/05/18 21:17; Admin Dose 25 MG; Start 01/27/18 at 21:00 Ranolazine (Ranexa) 500 mg Q12 PO Last administered on 02/06/18 20:54; Admin Dose 500 MG; Start 01/27/18 at 21:00 Zolpidem Tartrate (Ambien) 5 mg HS MAY REPEAT X 1 PRN PO INSOMNIA; Start 01/27/18 at 13:30 Diphenhydramine HCl (Benadryl) 25 mg Q6H PRN IV ITCHING Last administered on 01/30/18at 08:10; Admin Dose 25 MG; Start 01/27/18 at 14:30 Epoetin Geo (Epogen (Esrd)) 8,000 units AFTER DIALYSIS SC Last administered on 02/05/18at 17:49; Admin Dose 8,000 UNITS; Start 01/28/18 at 08:00 Levothyroxine Sodium (Synthroid) 225 mcg DAILY@06 PO Last administered on 02/06/18at 05:42; Admin Dose 225 MCG; Start 01/29/18 at 06:00 Aspirin (Aspirin) 81 mg DAILY PO Last administered on 02/06/18at 09:04; Admin Dose 81 MG; Start 01/28/18 at 13:00 Miscellaneous Information 1 ea NOTE XX ; Start 01/28/18 at 14:00 Glucose (Glutose) 15 gm Q15M PRN PO DECREASED GLUCOSE; Start 01/28/18 at 14:00 Glucose (Glutose) 22.5 gm Q15M PRN PO DECREASED GLUCOSE; Start 01/28/18 at 14:00 Dextrose (D50w Syringe) 25 ml Q15M PRN IV DECREASED GLUCOSE; Start 01/28/18 at 14:00 Dextrose (D50w Syringe) 50 ml Q15M PRN IV DECREASED GLUCOSE; Start 01/28/18 at 14:00 Glucagon (Glucagen) 1 mg Q15M PRN IM DECREASED GLUCOSE; Start 01/28/18 at 1 4:00 Glucose (Glutose) 15 gm Q15M PRN BUCCAL DECREASED GLUCOSE; Start 01/28/18 at 14:00 Sevelamer Carbonate (Renvela) 2.4 gm WITH MEALS GTB Last administered on 02/06/18at 17:56; Admin Dose 2.4 GM; Start 01/29/18 at 11:30 Cinacalcet (Sensipar) 60 mg WITH BREAKFAST PO Last administered on 02/06/18at 09:03; Admin Dose 60 MG; Start 01/30/18 at 09:00; Status Hold Ondansetron HCl (Zofran Inj) 4 mg Q4H PRN IV NAUSEA AND/OR VOMITING Last administered on 01/31/18at 15:14; Admin Dose 4 MG; Start 01/30/18 at 20:30 Metoclopramide HCl (Reglan) 10 mg Q6H PRN IV NAUSEA Last administered on 01/31at 15:14; Admin Dose 10 MG; Start 01/31/18 at 11:00 Pantoprazole (Protonix Tab) 40 mg DAILY@06 PO Last administered on 02/06/18at 05:42; Admin Dose 40 MG; Start 02/01/18 at 12:00 Albumin Human 100 ml @ 100 mls/hr DURING DIALYSIS PRN IV BLOOD PRESSURE SUPPORT Last administered on 02/01/18at 19:12; Admin Dose 100 MLS/HR; Start 02/01/18 at 18:30 Haloperidol (Haldol) 2 mg Q6H PRN PO Hallucination Last administered on 02/06/18at 16:47; Admin Dose 2 MG; Start 02/03/18 at 16:00 Mirtazapine (Remeron) 7.5 mg PC DINNER PO Last administered on 02/04/18at 17:56; Admin Dose 7.5 MG; Start 02/03/18 at 18:55 Haloperidol (Haldol) 2 mg QHS PO Last administered on 02/06/18at 20:55; Admin Dose 2 MG; Start 02/03/18 at 21:00 Amlodipine Besylate (Norvasc) 2.5 mg DAILY PO ; Start 02/07/18 at 09:00 MARGARITO VIVAR MD Feb 07, 2018 10:56
--- NOTE | 2018-02-07 10:57 | NUR ---
RN note: Pt conts to refuse medications, pt states she feels tired and she would rather sleep. Pt is able to answered questions and communicate needs to RN. Vital signs within range. Charge nurse Maria De Jesus clark. Dr. Mondragon informed. Will cont to monitor
--- NOTE | 2018-02-07 13:06 | CONS ---
Assessment/Plan Assessment/Plan Hospital Course A: 52 yo F with ESRD on HD and other comorbidities... who initially presented for evaluation of shortness of breath and other sx... Of note, she is reported to have missed several hemodialysis sessions prior to presentation... Neurology is consulted to evaluate altered mental status. Most clinically consistent with an acute toxic metabolic encephalopathy Stroke is unlikely. Seizure is unlikely. Head CT is unrevealing. P: OK to defer additional neuroimaging for now Cont medical management per primary Reorient as necessary Limit sedating medications where possible PT/OT as tolerated Will follow clinically Result Diagram: 02/07/18 0549 02/07/18 0549 Results 24hrs Laboratory Tests Test 02/06/18 17:33 02/06/18 21:53 02/07/18 05:49 02/07/18 08:24 Bedside Glucose 130 133 104 White Blood 7.8 # Count Red Blood Count 3.66 L Hemoglobin 10.8 L Hematocrit 33.6 L Mean Corpuscular 91.8 Volume Mean Corpuscular 29.5 Hemoglobin Mean Corpuscular 32.1 Hemoglobin Nuha nt Red Cell 18.7 H Distribution Width Platelet Count 82 #L Mean Platelet 11.7 H Volume Immature 0.600 H Granulocytes % Neutrophils % 64.7 Lymphocytes % 20.3 Monocytes % 13.8 H Eosinophils % 0.3 Basophils % 0.3 Nucleated Red 4.1 H Blood Cells % Immature 0.050 H Granulocytes # Neutrophils # 5.0 Lymphocytes # 1.6 Monocytes # 1.1 H Eosinophils # 0.0 Basophils # 0.0 Nucleated Red 0.3 H Blood Cells # Sodium Level 144 Potassium Level 4.8 Chloride Level 98 Carbon Dioxide 23 Level Anion Gap 23 H Blood Urea 37 H Nitrogen Creatinine 6.59 H Est Glomerular 8 L Filtrat Rate mL/min Glucose Level 113 Calcium Level 6.2 L Total Bilirubin 0.3 Direct Bilirubin 0.20 # Indirect 0.1 Bilirubin Aspartate Amino 1283 H Transf (AST/SGOT ) Alanine 1343 H Aminotransferase (ALT/SGPT) Alkaline 440 H Phosphatase Total Protein 6.7 Albumin 3.8 Globulin 2.90 Albumin/Globulin 1.31 Ratio Test 02/07/18 11:31 02/07/18 11:37 02/07/18 11:55 Vitamin D < 12.8 L 1,25-Dihydroxy Hepatitis A Pending Antibody Total Hepatitis B Pending Surface Antigen Hepatitis B Core Pending Total Antibody Hepatitis C Pending Antibody Bedside Glucose 103 Consultation Date/Type/Reason Admit Date/Time Jan 27, 2018 at 04:03 Type of Consult Neurology Requesting Provider: KSIHORE HURST MD Date/Time of Note DATE: 02/07/18 TIME: 13:06 24 HR Interval Summary Free Text/Dictation Continues telemetry monitoring. Pt states she's more tired today. Exam Vital Signs Vitals Vital Signs Date Temp Pulse Resp B/P (MAP) Pulse Ox O2 O2 Flow FiO2 Time Delivery Rate 02/07/18 65 12:04 02/07/18 97.9 100/58 94 Room Air 11:50 (72) 02/07/18 18 07:20 Intake and Output 02/06/18 02/06/18 02/07/18 1515:00 23:00 07:00 IntakeIntake Total 510 ml 200 ml BalanceBalance 510 ml 200 ml Exam PE: Gen Appearance: No Apparent Distress HEENT: Normocephalic Cardiovascular: Regular rate Lungs: Clear bilaterally Abdomen: Soft Extremities: Dry NE: The patient was alert though somewhat disoriented. Oriented to self, place, and situation. Language was normal. Fund of knowledge was normal. Pupils were equal and reactive to light. There was no afferent pupillary defect. Visual alvarez were normal. Funduscopic examination was limited.. Extra-ocular movements were full. Ptosis was absent. There was no nystagmus. Facial sensation was normal. Face was symmetric with normal strength. Hearing was intact. Palate movements were normal. Neck strength was normal. There was normal tongue bulk and speed of movement. Tone was normal. Muscle bulk was normal. I did not see fasciculations. Arms and legs were mildly weak and symmetric. . Vibration sensation was normal. Temperature and pinprick sensation was normal. Rapid alternating movements were normal. There was no dysmetria. There was no intention tremor. Gait was deferred due to bedrest. Arm and leg reflexes were 2+ and symmetric. Merlos's sign was absent. Plantar responses were flexor. JASEN GRIFFITH NP Feb 07, 2018 13:06 TAMMI DELEON Feb 08, 2018 07:04
--- NOTE | 2018-02-07 16:30 | NUR ---
Notified by primary RN about low calcium level of 6.2 as of 02/07/18, notified electrical power station technician Lupe Valentine MD. Communicated with primary RN about MD notification.
[2018-02-07] MEDS: DIPHENHYDRAMINE 50 MG INJ IV PRN (17:49)
--- NOTE | 2018-02-07 18:21 | NUR ---
EOSS AO x 3, pt is able to answered questions and communicates needs to RN, vital signs within range, SR on the monitor. Pt refused meds and food during shift. MD aware. This RN communicate to HD RN that per Dr. Mondragon's orders nephro needs to be inform of Ca levels. HD RN agreed to communicate with Dr. minaya. HD on going without complications, All needs attended at bedside. Will; endorse.
[2018-02-07] MEDS: MIRTAZAPINE 15 MG TAB PO SCH (19:03)
[2018-02-07] MEDS: HALOPERIDOL 1 MG TAB PO SCH (20:16)
--- NOTE | 2018-02-07 20:56 | NUR ---
Dialysis order changed per patient condition; -BFR reduced from 400 mL/hour to 350 mL/hour due to blood pressure trend. -Potassium bath changed from 2K to 3K using the sliding scale due to K lab value of 4.8 as of 02/07/2018. Dr. Krueger notified.
[2018-02-08] VITALS (13 sets, daily range): BP systolic 90–155; BP diastolic 50–73; PULSE 64–75; RESP 18
[2018-02-08] MEDS: ACCU-CHEK XX SCH (02:00)
--- NOTE | 2018-02-08 06:43 | NUR ---
End of Shift Summary No change in pt condition. See pt assessment and EMAR.
--- NOTE | 2018-02-08 07:44 | PN ---
Date/Time of Note Date/Time of Note DATE: 02/08/18 TIME: 07:44 Assessment/Plan VTE Prophylaxis Risk score (from Ns)>0 risk: 5 SCD applied (from Ns): No SCD contraindicated: other Pharmacological prophylaxis: other Lines/Catheters IV [facility]ter [facility]from [facility] Mid Line Urinary Cath still in place: No Assessment/Plan Hospital Course renal follow up SUBJECTIVE: d/w Dr Krueger. No other events overnight. OBJECTIVE: HEENT: Head is normocephalic. NECK: Supple. HEART: Regular rate. LUNGS: Show diminished breath sounds at the base. ABDOMEN: Soft, nontender to palpation without rebound or guarding. EXTREMITIES: Negative for clubbing, cyanosis, no edema. DERMATOLOGIC: No rashes. MUSCULOSKELETAL: No joint effusion. NEUROLOGIC: No change in exam. MEDICATIONS: Reviewed. LABORATORY DATA: Has been reviewed. ASSESSMENT AND PLAN: 1. End-stage renal disease. continue hd in am 2. Hyperkalemia, improved. Continue dialysis on low potassium bath. 3. Anemia. Continue to monitor hemoglobin and hematocrit levels. Continue Epogen. 4. Mineral bone disorder, monitor calcium and phosphorus levels. Continue phos binders. Continue Sensipar. 5. Acute encephalopathy, etiology toxic metabolic. Continue current medical management. Mental status has been improving. 6. Diabetes. Continue current insulin regimen. 7. Coronary artery disease, with history of PCI. Continue medical management. Result Diagram: 02/07/18 0549 02/08/18 0614 Results 24hrs Laboratory Tests Test 02/07/18 08:24 02/07/18 11:31 02/07/18 11:37 02/07/18 11:55 Bedside Glucose 104 103 Ionized Calcium 0.7 L (Measured) Vitamin D < 12.8 L 1,25-Dihydroxy Hepatitis A NEGATIVE Antibody Total Hepatitis B NEGATIVE Surface Antigen Hepatitis B Core NEGATIVE Total Antibody Hepatitis C NEGATIVE Antibody Test 02/07/18 17:27 02/07/18 20:02 02/08/18 06:14 Bedside Glucose 113 101 Sodium Level 143 Potassium Level 4.7 Chloride Level 99 Carbon Dioxide 28 Level Anion Gap 16 #H Blood Urea 24 #H Nitrogen Creatinine 4.55 #H Est Glomerular 12 L Filtrat Rate mL/min Glucose Level 91 Calcium Level 6.6 L Total Bilirubin 0.3 Direct Bilirubin 0.00 # Indirect 0.3 Bilirubin Aspartate Amino 748 H Transf (AST/SGOT ) Alanine 1147 H Aminotransferase (ALT/SGPT) Alkaline 491 H Phosphatase Total Protein 6.6 Albumin 3.7 Globulin 2.90 Albumin/Globulin 1.27 Ratio Exam/Review of Systems Vital Signs Vitals Vital Signs Date Temp Pulse Resp B/P (MAP) Pulse Ox O2 O2 Flow FiO2 Time Delivery Rate 02/08/18 99.3 70 18 130/58 92 Room Air 07:25 (82) Intake and Output 02/07/18 02/07/18 02/08/18 1515:00 23:00 07:00 IntakeIntake Total 300 ml 250 ml OutputOutput Total 900 ml BalanceBalance -600 ml 250 ml Medications Medications Current Medications Acetaminophen (Tylenol Tab) 650 mg Q6H PRN PO MILD PAIN(1-3)OR ELEVATED TEMP Last administered on 01/31/18at 00:19; Admin Dose 650 MG; Start 01/27/18 at 13:30; Status Hold Atorvastatin Calcium (Lipitor) 20 mg HS PO Last administered on 02/04/18at 20:51; Admin Dose 20 MG; Start 01/27/18 at 21:00; Status Hold Clopidogrel Bisulfate (plaVIX) 75 mg DAILY PO Last administered on 02/06/18 09:03; Admin Dose 75 MG; Start 01/27/18 at 21:00 Acetaminophen/ Hydrocodone Bitart ([place] (10/325)) 2 tab Q6H PRN PO MODERATE PAIN LEVEL 4-6 Last administered on 02/02/18 17:52; Admin Dose 2 TAB; Start 01/27/18 at 13:30; Status Hold Isosorbide Mononitrate (Imdur) 30 mg DAILY PO Last administered on 02/04/18 09:41; Admin Dose 30 MG; Start 01/28/18 at 21:00 Famotidine (Pepcid) 10 mg DAILY PO Last administered on 02/06/18 09:06; Admin Dose 10 MG; Start 01/27/18 at 21:00 Diagnostic Test (Pha) (Accu-Chek) 1 ea 02 XX Last administered on 02/01/18 02:00; Admin Dose 1 EA; Start 01/28/18 at 02:00 Insulin Aspart (Novolog Insulin Pen) NOVOLOG *MILD* ALGORITHM WITH MEALS BEDTIME SC Last administered on 12/28/18at 11:55; Admin Dose 2 UNIT; Start 01/27/18 at 17:35 Metoprolol Tartrate (Lopressor) 25 mg BID PO Last administered on 02/07/18at 22:44; Admin Dose 25 MG; Start 01/27/18 at 21:00 Ranolazine (Ranexa) 500 mg Q12 PO Last administered on 02/07/18at 22:43; Admin Dose 500 MG; Start 01/27/18 at 21:00 Zolpidem Tartrate (Ambien) 5 mg HS MAY REPEAT X 1 PRN PO INSOMNIA; Start 01/27/18 at 13:30 Diphenhydramine HCl (Benadryl) 25 mg Q6H PRN IV ITCHING Last administered on 02/07/18at 17:49; Admin Dose 25 MG; Start 01/27/18 at 14:30 Epoetin Geo (Epogen (Esrd)) 8,000 units AFTER DIALYSIS SC Last administered on 02/05/18at 17:49; Admin Dose 8,000 UNITS; Start 01/28/18 at 08:00 Levothyroxine Sodium (Synthroid) 225 mcg DAILY@06 PO Last administered on 02/06/18at 05:42; Admin Dose 225 MCG; Start 01/29/18 at 06:00 Aspirin (Aspirin) 81 mg DAILY PO Last administered on 02/06/18at 09:04; Admin Dose 81 MG; Start 01/28/18 at 13:00 Miscellaneous Information 1 ea NOTE XX ; Start 01/28/18 at 14:00 Glucose (Glutose) 15 gm Q15M PRN PO DECREASED GLUCOSE; Start 01/28/18 at 14:00 Glucose (Glutose) 22.5 gm Q15M PRN PO DECREASED GLUCOSE; Start 01/28/18 at 14:00 Dextrose (D50w Syringe) 25 ml Q15M PRN IV DECREASED GLUCOSE; Start 01/28/18 at 14:00 Dextrose (D50w Syringe) 50 ml Q15M PRN IV DECREASED GLUCOSE; Start 01/28/18 at 14:00 Glucagon (Glucagen) 1 mg Q15M PRN IM DECREASED GLUCOSE; Start 01/28/18 at 14:00 Glucose (Glutose) 15 gm Q15M PRN BUCCAL DECREASED GLUCOSE; Start 01/28/18 at 14:00 Sevelamer Carbonate (Renvela) 2.4 gm WITH MEALS GTB Last administered on 02/06/18 17:56; Admin Dose 2.4 GM; Start 01/29/18 at 11:30 Cinacalcet (Sensipar) 60 mg WITH BREAKFAST PO Last administered on 02/06/18 09:03; Admin Dose 60 MG; Start 01/30/18 at 09:00; Status Hold Ondansetron HCl (Zofran Inj) 4 mg Q4H PRN IV NAUSEA AND/OR VOMITING Last administered on 01/31/18 15:14; Admin Dose 4 MG; Start 01/30/18 at 20:30 Metoclopramide HCl (Reglan) 10 mg Q6H PRN IV NAUSEA Last administered on 01/31/18 15:14; Admin Dose 10 MG; Start 01/31/18 at 11:00 Pantoprazole (Protonix Tab) 40 mg DAILY@06 PO Last administered on 02/06/18 05:42; Admin Dose 40 MG; Start 02/01/18 at 12:00 Albumin Human 100 ml @ 100 mls/hr DURING DIALYSIS PRN IV BLOOD PRESSURE SUPPORT Last administered on 02/01/18 19:12; Admin Dose 100 MLS/HR; Start 02/01/18 at 18:30 Haloperidol (Haldol) 2 mg Q6H PRN PO Hallucination Last administered on 02/06/18 16:47; Admin Dose 2 MG; Start 02/03/18 at 16:00 Mirtazapine (Remeron) 7.5 mg PC DINNER PO Last administered on 02/07/18 19:03; Admin Dose 7.5 MG; Start 02/03/18 at 18:55 Haloperidol (Haldol) 2 mg QHS PO Last administered on 02/07/18 20:16; Admin Dose 2 MG; Start 02/03/18 at 21:00 Amlodipine Besylate (Norvasc) 2.5 mg DAILY PO ; Start 02/07/18 at 09:00 DEANDRE ROCHE DO Feb 08, 2018 07:44
[2018-02-08] MEDS: INSULIN ASPART [NOVOLOG] 3 ML PEN SC SCH ×4 (07:55→21:00)
[2018-02-08] MEDS: LEVOTHYROXINE 100 MCG TAB PO SCH (07:56)
[2018-02-08] MEDS: PANTOPRAZOLE (EC) 40 MG TAB PO SCH (07:57)
[2018-02-08] MEDS: SEVELAMER CARBONATE 2.4 GM PKT GTB SCH ×3 (07:58→17:41)
[2018-02-08] MEDS ORDERED: ACETAMINOPHEN 325 MG TAB PO PRN (09:00)
--- NOTE | 2018-02-08 09:07 | CONS ---
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 plan has been discussed with patient before repetitively, but patient seems to be unable to make appt, get CD etc. discussed all details Result Diagram: 02/07/18 0549 02/08/18 0614 Results 24hrs Laboratory Tests Test 02/07/18 11:31 02/07/18 11:37 02/07/18 11:55 02/07/18 17:27 Ionized Calcium 0.7 L (Measured) Vitamin D < 12.8 L 1,25-Dihydroxy Hepatitis A NEGATIVE Antibody Total Hepatitis B NEGATIVE Surface Antigen Hepatitis B Core NEGATIVE Total Antibody Hepatitis C NEGATIVE Antibody Bedside Glucose 103 113 Test 02/07/18 20:02 02/08/18 06:14 02/08/18 07:55 Bedside Glucose 101 87 Sodium Level 143 Potassium Level 4.7 Chloride Level 99 Carbon Dioxide 28 Level Anion Gap 16 #H Blood Urea 24 #H Nitrogen Creatinine 4.55 #H Est Glomerular 12 L Filtrat Rate mL/min Glucose Level 91 Calcium Level 6.6 L Total Bilirubin 0.3 Direct Bilirubin 0.00 # Indirect 0.3 Bilirubin Aspartate Amino 748 H Transf (AST/SGOT ) Alanine 1147 H Aminotransferase (ALT/SGPT) Alkaline 491 H Phosphatase Total Protein 6.6 Albumin 3.7 Globulin 2.90 Albumin/Globulin 1.27 Ratio Consultation Date/Type/Reason Admit Date/Time Jan 27, 2018 at 04:03 Initial Consult Date Type of Consult cv Requesting Provider: KISHORE HURST MD 24 HR Interval Summary Free Text/Dictation no chest pain, no sob, no palpitations, son at bedside Detailed Summary Respiratory: no complaints Cardiovascular: no complaints Gastrointestinal: no complaints Musculoskeletal: no complaints Skin: no complaints Neurologic: no complaints Exam/Review of Systems Vital Signs Vitals Vital Signs Date Temp Pulse Resp B/P (MAP) Pulse Ox O2 O2 Flow FiO2 Time Delivery Rate 02/08/18 70 08:12 02/08/18 99.3 18 130/58 92 Room Air 07:25 (82) Intake and Output 02/07/18 02/07/18 02/08/18 1515:00 23:00 07:00 IntakeIntake Total 300 ml 250 ml OutputOutput Total 900 ml BalanceBalance -600 ml 250 ml Exam Constitutional: alert, oriented ENMT: nl external ears & nose Neck: supple Respiratory: clear to auscultation Cardiovascular: regular rate and rhythm Gastrointestinal: soft Musculoskeletal: nl extremities to inspection Extremities: normal pulses Medications Medications Current Medications Atorvastatin Calcium (Lipitor) 20 mg HS PO Last administered on 02/04/18 20:51; Admin Dose 20 MG; Start 01/27/18 at 21:00; Status Hold Clopidogrel Bisulfate (plaVIX) 75 mg DAILY PO Last administered on 02/06/18 09:03; Admin Dose 75 MG; Start 01/27/18 at 21:00 Acetaminophen/ Hydrocodone Bitart ([place] (10/325)) 2 tab Q6H PRN PO MODERATE PAIN LEVEL 4-6 Last administered on 02/02/18 17:52; Admin Dose 2 TAB; Start 01/27/18 at 13:30; Status Hold Isosorbide Mononitrate (Imdur) 30 mg DAILY PO Last administered on 02/04/18 09:41; Admin Dose 30 MG; Start 01/28/18 at 21:00 Famotidine (Pepcid) 10 mg DAILY PO Last administered on 02/06/18 09:06; Admin Dose 10 MG; Start 01/27/18 at 21:00 Diagnostic Test (Pha) (Accu-Chek) 1 ea 02 XX Last administered on 02/01/18at 02:00; Admin Dose 1 EA; Start 01/28/18 at 02:00 Insulin Aspart (Novolog Insulin Pen) NOVOLOG *MILD* ALGORITHM WITH MEALS BEDTIME SC Last administered on 02/06/18 11:55; Admin Dose 2 UNIT; Start 01/27/18 at 17:35 Metoprolol Tartrate (Lopressor) 25 mg BID PO Last administered on 02/07/18 22:44; Admin Dose 25 MG; Start 01/27/18 at 21:00 Ranolazine (Ranexa) 500 mg Q12 PO Last administered on 02/07/18 22:43; Admin Dose 500 MG; Start 01/27/18 at 21:00 Zolpidem Tartrate (Ambien) 5 mg HS MAY REPEAT X 1 PRN PO INSOMNIA; Start 01/27/18 at 13:30 Diphenhydramine HCl (Benadryl) 25 mg Q6H PRN IV ITCHING Last administered on 02/07/18at 17:49; Admin Dose 25 MG; Start 01/27/18 at 14:30 Epoetin Geo (Epogen (Esrd)) 8,000 units AFTER DIALYSIS SC Last administered on 02/05/18at 17:49; Admin Dose 8,000 UNITS; Start 01/28/18 at 08:00 Levothyroxine Sodium (Synthroid) 225 mcg DAILY@06 PO Last administered on 02/08/18 07:56; Admin Dose 225 MCG; Start 01/29/18 at 06:00 Aspirin (Aspirin) 81 mg DAILY PO Last administered on 02/06/18at 09:04; Admin Dose 81 MG; Start 01/28/18 at 13:00 Miscellaneous Information 1 ea NOTE XX ; Start 01/28/18 at 14:00 Glucose (Glutose) 15 gm Q15M PRN PO DECREASED GLUCOSE; Start 01/28/18 at 14:00 Glucose (Glutose) 22.5 gm Q15M PRN PO DECREASED GLUCOSE; Start 01/28/18 at 14:00 Dextrose (D50w Syringe) 25 ml Q15M PRN IV DECREASED GLUCOSE; Start 01/28/18 at 14:00 Dextrose (D50w Syringe) 50 ml Q15M PRN IV DECREASED GLUCOSE; Start 01/28/18 at 14:00 Glucagon (Glucagen) 1 mg Q15M PRN IM DECREASED GLUCOSE; Start 01/28/18 at 14:00 Glucose (Glutose) 15 gm Q15M PRN BUCCAL DECREASED GLUCOSE; Start 01/28/18 at 14:00 Sevelamer Carbonate (Renvela) 2.4 gm WITH MEALS GTB Last administered on 02/08/18at 07:58; Admin Dose 2.4 GM; Start 01/29/18 at 11:30 Cinacalcet (Sensipar) 60 mg WITH BREAKFAST PO Last administered on 02/06/18 09:03; Admin Dose 60 MG; Start 01/30/18 at 09:00; Status Hold Ondansetron HCl (Zofran Inj) 4 mg Q4H PRN IV NAUSEA AND/OR VOMITING Last administered on 01/31/18 15:14; Admin Dose 4 MG; Start 01/30/18 at 20:30 Metoclopramide HCl (Reglan) 10 mg Q6H PRN IV NAUSEA Last administered on 01/31/18at 15:14; Admin Dose 10 MG; Start 01/31/18 at 11:00 Pantoprazole (Protonix Tab) 40 mg DAILY@06 PO Last administered on 02/08/18 07:57; Admin Dose 40 MG; Start 02/01/18 at 12:00 Albumin Human 100 ml @ 100 mls/hr DURING DIALYSIS PRN IV BLOOD PRESSURE SUPPORT Last administered on 02/01/18 19:12; Admin Dose 100 MLS/HR; Start 02/01/18 at 18:30 Haloperidol (Haldol) 2 mg Q6H PRN PO Hallucination Last administered on at 16:47; Admin Dose 2 MG; Start 02/03/18 at 16:00 Mirtazapine (Remeron) 7.5 mg PC DINNER PO Last administered on 02/07/18at 19:03; Admin Dose 7.5 MG; Start 02/03/18 at 18:55 Haloperidol (Haldol) 2 mg QHS PO Last administered on 02/07/18at 20:16; Admin Dose 2 MG; Start 02/03/18 at 21:00 Amlodipine Besylate (Norvasc) 2.5 mg DAILY PO ; Start 02/07/18 at 09:00 Acetaminophen (Tylenol Tab) 650 mg Q6H PRN PO MILD PAIN(1-3)OR ELEVATED TEMP; Start 02/08/18 at 09:00; Status UNV Nystatin (Nystatin Susp) 5 ml QID PO ; Start 02/08/18 at 09:00; Status UNV HUMAIRA CELESTIN MD Feb 08, 2018 09:07
[2018-02-08] MEDS: CLOPIDOGREL 75 MG TAB PO SCH (09:16)
[2018-02-08] MEDS: ASPIRIN 81 MG TAB PO SCH (09:17)
[2018-02-08] MEDS: AMLODIPINE 2.5 MG TAB PO SCH (09:17)
[2018-02-08] MEDS: ISOSORBIDE MONONITRATE(SR)30 MG TAB PO SCH (09:17)
[2018-02-08] MEDS: RANOLAZINE (SR) 500 MG TAB PO SCH ×2 (09:18→21:08)
[2018-02-08] MEDS: METOPROLOL 25 MG TAB PO SCH ×2 (09:18→21:00)
[2018-02-08] MEDS: FAMOTIDINE 20 MG TAB PO SCH (09:18)
[2018-02-08] MEDS: NYSTATIN SUSP 5 ML CUP PO SCH ×4 (09:23→21:00)
--- NOTE | 2018-02-08 11:51 | NUR ---
Eric Confirmation Number: [id number]
--- NOTE | 2018-02-08 11:55 | PN ---
Date/Time of Note Date/Time of Note DATE: 02/08/18 TIME: 11:50 Assessment/Plan VTE Prophylaxis Risk score (from Ns)>0 risk: 5 SCD applied (from Ns): No SCD contraindicated: low risk/ambulating Pharmacological prophylaxis: LMWH Lines/Catheters IV Catheter Type (from Nrs): Peripheral IV Urinary Cath still in place: No Assessment/Plan Problems: (1) Hypocalcemia Status: Acute Comment: This is certainly a clear-cut entity. If I had to speculate that speculate that she was not cooperative with her Sensipar as an outpatient and since we have been giving it to her here is because her calcium to drop. Please note she has a rather significantly low 1,25 dihydroxy vitamin D level. I will go ahead and give her a dose of 1, will try and get the calcium corrected as it stands now she is symptomatically hypocalcemic 25 dihydroxy vitamin D and reduce the dosage of Sensipar. (2) Essential (primary) hypertension Status: Chronic Comment: Adequate blood pressure control (3) Secondary hyperparathyroidism of renal origin Status: Chronic Comment: She clearly has secondary hyperparathyroidism however I suspect she was not taking her medications for this. Recheck of the PTH level is pending (4) Abnormal liver function tests Status: Acute Comment: These remain elevated. She does have hepatic steatosis on ultrasound. However I am concerned there may be something else driving this (5) Hyperlipidemia Status: Chronic Comment: Noted. In light of the liver chemistries hold the statins for the time being Qualifiers: Hyperlipidemia type: pure hypercholesterolemia Qualified Codes: E78.00 - Pure hypercholesterolemia, unspecified (6) Hepatic steatosis Status: Chronic Comment: Noted on examination. 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 Please note they have deferred management of the calcium disturbance to the primary team (9) Papillary thyroid carcinoma Onset Date: ~ 02/2013 Status: Chronic Comment: Thyroid hormone dosage adjusted (10) Hiatal hernia with GERD Status: Chronic Comment: Noted. (11) Major depressive disorder, single episode, severe without psychotic features Status: Chronic Comment: Improved markedly. DC haloperidol Result Diagram: 02/07/18 0549 02/08/18 0614 Results 24hrs Laboratory Tests Test 02/07/18 11:55 02/07/18 17:27 02/07/18 20:02 02/08/18 06:14 Bedside Glucose 103 113 101 Sodium Level 143 Potassium Level 4.7 Chloride Level 99 Carbon Dioxide 28 Level Anion Gap 16 #H Blood Urea 24 #H Nitrogen Creatinine 4.55 #H Est Glomerular 12 L Filtrat Rate mL/min Glucose Level 91 Calcium Level 6.6 L Ionized Calcium 0.8 L (Measured) Phosphorus Level 3.5 Magnesium Level 2.2 Total Bilirubin 0.3 Direct Bilirubin 0.00 # Indirect 0.3 Bilirubin Aspartate Amino 748 H Transf (AST/SGOT ) Alanine 1147 H Aminotransferase (ALT/SGPT) Alkaline 491 H Phosphatase Total Protein 6.6 Albumin 3.7 Globulin 2.90 Albumin/Globulin 1.27 Ratio Test 02/08/18 07:55 Bedside Glucose 87 Subjective 24 Hr Interval Summary Free Text/Dictation Patient reports she is feeling a little bit better than yesterday but still is having a great deal of a sensation of stiffness in the hands and also in the mouth and tongue. Constitutional: no complaints Respiratory: no complaints Cardiovascular: no complaints Gastrointestinal: no complaints Exam/Review of Systems Vital Signs Vitals Vital Signs Date Temp Pulse Resp B/P (MAP) Pulse Ox O2 O2 Flow FiO2 Time Delivery Rate 02/08/18 70 08:12 02/08/18 99.3 18 130/58 92 Room Air 07:25 (82) Intake and Output 02/07/18 02/07/18 02/08/18 1515:00 23:00 07:00 IntakeIntake Total 300 ml 250 ml OutputOutput Total 900 ml BalanceBalance -600 ml 250 ml Exam Positive Trousseau sign positive [place] sign Constitutional: alert, oriented Respiratory: clear to auscultation, normal air movement Cardiovascular: regular rate and rhythm, nl pulses Medications Medications Current Medications Atorvastatin Calcium (Lipitor) 20 mg HS PO Last administered on 02/04/18 20:51; Admin Dose 20 MG; Start 01/27/18 at 21:00; Status Hold Clopidogrel Bisulfate (plaVIX) 75 mg DAILY PO Last administered on 02/08/18 09:16; Admin Dose 75 MG; Start 01/27/18 at 21:00 Acetaminophen/ Hydrocodone Bitart ([place] (10/325)) 2 tab Q6H PRN PO MODERATE PAIN LEVEL 4-6 Last administered on 02/02/18 17:52; Admin Dose 2 TAB; Start 01/27/18 at 13:30; Status Hold Isosorbide Mononitrate (Imdur) 30 mg DAILY PO Last administered on 02/08/18 09:17; Admin Dose 30 MG; Start 01/28/18 at 21:00 Famotidine (Pepcid) 10 mg DAILY PO Last administered on 02/08/18 09:18; Admin Dose 10 MG; Start 01/27/18 at 21:00 Diagnostic Test (Pha) (Accu-Chek) 1 ea 02 XX Last administered on 02/01/18 02:00; Admin Dose 1 EA; Start 01/28/18 at 02:00 Insulin Aspart (Novolog Insulin Pen) NOVOLOG *MILD* ALGORITHM WITH MEALS BEDTIME SC Last administered on 02/06/18 11:55; Admin Dose 2 UNIT; Start 01/27/18 at 17:35 Metoprolol Tartrate (Lopressor) 25 mg BID PO Last administered on 02/08/18 09:18; Admin Dose 25 MG; Start 01/27/18 at 21:00 Ranolazine (Ranexa) 500 mg Q12 PO Last administered on 02/08/18 09:18; Admin Dose 500 MG; Start 01/27/18 at 21:00 Zolpidem Tartrate (Ambien) 5 mg HS MAY REPEAT X 1 PRN PO INSOMNIA; Start 01/27/18 at 13:30 Diphenhydramine HCl (Benadryl) 25 mg Q6H PRN IV ITCHING Last administered on 02/07/18 17:49; Admin Dose 25 MG; Start 01/27/18 at 14:30 Epoetin Geo (Epogen (Esrd)) 8,000 units AFTER DIALYSIS SC Last administered on 02/05/18 17:49; Admin Dose 8,000 UNITS; Start 01/28/18 at 08:00 Levothyroxine Sodium (Synthroid) 225 mcg DAILY@06 PO Last administered on 02/08/18at 07:56; Admin Dose 225 MCG; Start 01/29/18 at 06:00 Aspirin (Aspirin) 81 mg DAILY PO Last administered on 02/08/18at 09:17; Admin Dose 81 MG; Start 01/28/18 at 13:00 Miscellaneous Information 1 ea NOTE XX ; Start 01/28/18 at 14:00 Glucose (Glutose) 15 gm Q15M PRN PO DECREASED GLUCOSE; Start 01/28/18 at 14:00 Glucose (Glutose) 22.5 gm Q15M PRN PO DECREASED GLUCOSE; Start 01/28/18 at 14:00 Dextrose (D50w Syringe) 25 ml Q15M PRN IV DECREASED GLUCOSE; Start 01/28/18 at 14:00 Dextrose (D50w Syringe) 50 ml Q15M PRN IV DECREASED GLUCOSE; Start 01/28/18 at 14:00 Glucagon (Glucagen) 1 mg Q15M PRN IM DECREASED GLUCOSE; Start 01/28/18 at 14:00 Glucose (Glutose) 15 gm Q15M PRN BUCCAL DECREASED GLUCOSE; Start 01/28/18 at 14:00 Sevelamer Carbonate (Renvela) 2.4 gm WITH MEALS GTB Last administered on 02/08/18at 07:58; Admin Dose 2.4 GM; Start 01/29/18 at 11:30 Ondansetron HCl (Zofran Inj) 4 mg Q4H PRN IV NAUSEA AND/OR VOMITING Last administered on 01/31/18at 15:14; Admin Dose 4 MG; Start 01/30/18 at 20:30 Metoclopramide HCl (Reglan) 10 mg Q6H PRN IV NAUSEA Last administered on 01/31/18at 15:14; Admin Dose 10 MG; Start 01/31/18 at 11:00 Pantoprazole (Protonix Tab) 40 mg DAILY@06 PO Last administered on 02/08/18 07:57; Admin Dose 40 MG; Start 02/01/18 at 12:00 Albumin Human 100 ml @ 100 mls/hr DURING DIALYSIS PRN IV BLOOD PRESSURE SUPPORT Last administered on 02/01/18at 19:12; Admin Dose 100 MLS/HR; Start 02/01/18 at 18:30 Haloperidol (Haldol) 2 mg Q6H PRN PO Hallucination Last administered on 02/06/18at 16:47; Admin Dose 2 MG; Start 02/03/18 at 16:00 Mirtazapine (Remeron) 7.5 mg PC DINNER PO Last administered on 02/07/18at 19:03; Admin Dose 7.5 MG; Start 02/03/18 at 18:55 Haloperidol (Haldol) 2 mg QHS PO Last administered on 02/07/18at 20:16; Admin Dose 2 MG; Start 02/03/18 at 21:00 Amlodipine Besylate (Norvasc) 2.5 mg DAILY PO Last administered on 02/08/18at 09:17; Admin Dose 2.5 MG; Start 02/07/18 at 09:00 Acetaminophen (Tylenol Tab) 650 mg Q6H PRN PO MILD PAIN(1-3)OR ELEVATED TEMP Last administered on 02/08/18at 09:24; Admin Dose 650 MG; Start 02/08/18 at 09:00 Nystatin (Nystatin Susp) 5 ml QID PO Last administered on 02/08/18at 09:23; Admin Dose 5 ML; Start 02/08/18 at 09:00 Cinacalcet (Sensipar) 30 mg WITH BREAKFAST PO ; Start 02/09/18 at 07:55; Status UNV Calcitriol (Calcitriol) 1 mcg ONCE ONCE IV ; Start 02/08/18 at 12:00; Stop 02/08/18 at 12:01; Status UNV MARGARITO VIVAR MD Feb 08, 2018 11:55
[2018-02-08] MEDS: ONDANSETRON 4 MG INJ IV PRN (12:09)
[2018-02-08] MEDS ORDERED: CALCITRIOL 1 MCG INJ IV ONE (13:00)
[2018-02-08] MEDS: METOCLOPRAMIDE 10 MG INJ IV PRN (13:24)
[2018-02-08] MEDS: MIRTAZAPINE 15 MG TAB PO SCH (17:42)
[2018-02-08] MEDS ORDERED: traMADol 50 MG TAB PO PRN (20:30)
[2018-02-08] MEDS: ZOLPIDEM 5 MG TAB PO PRN (21:37)
[2018-02-09] VITALS (25 sets, daily range): BP systolic 87–152; BP diastolic 56–82; PULSE 59–78; RESP 16–20
[2018-02-09] MEDS: ZOLPIDEM 5 MG TAB PO PRN (00:24)
[2018-02-09] MEDS: ACCU-CHEK XX SCH ×2 (01:56→23:44)
[2018-02-09] MEDS: PANTOPRAZOLE (EC) 40 MG TAB PO SCH (06:06)
[2018-02-09] MEDS: LEVOTHYROXINE 100 MCG TAB PO SCH (06:06)
--- NOTE | 2018-02-09 06:35 | NUR ---
End of Shift Summary No change in pt condition. See pt assessment and EMAR.
--- NOTE | 2018-02-09 07:30 | NUR ---
Paged Dr. Krueger to notify him of pt calcium 5.9. Endorsed to oncoming RN, Piero.
[2018-02-09] MEDS ORDERED: CINACALCET 30 MG TAB PO SCH (07:55)
[2018-02-09] MEDS: SOD CHLORIDE 0.9% 1,000 ML IV SCH ×2 (08:09→23:14)
--- NOTE | 2018-02-09 08:16 | PN ---
Date/Time of Note Date/Time of Note DATE: 02/09/18 TIME: 08:13 Assessment/Plan VTE Prophylaxis Risk score (from Nsg)>0 risk: 3 SCD applied (from Ns): No SCD contraindicated: low risk/ambulating Pharmacological prophylaxis: other (plavix) Lines/Catheters IV Catheter Type (from Nrs): Saline Lock Urinary Cath still in place: No Assessment/Plan Hospital Course patient received for dialysis scheduled for second one today will transfer to telemetry when stable Assessment/Plan LFT's improving blood pressure low fluid intake low devin,l start I.V. fluids will reevaluate later when patient more alert Result Diagram: 02/07/18 0549 02/09/18 0556 Results 24hrs Laboratory Tests Test 02/08/18 12:04 02/08/18 16:54 02/08/18 21:03 02/09/18 05:56 Bedside Glucose 79 134 143 Sodium Level 143 Potassium Level 4.7 Chloride Level 100 Carbon Dioxide 26 Level Anion Gap 17 H Blood Urea 36 #H Nitrogen Creatinine 6.24 H Est Glomerular 9 L Filtrat Rate mL/min Glucose Level 211 # Calcium Level 6.0 L Phosphorus Level 3.5 Total Bilirubin 0.2 Direct Bilirubin 0.00 Indirect 0.2 Bilirubin Aspartate Amino 339 H Transf (AST/SGOT ) Alanine 706 H Aminotransferase (ALT/SGPT) Alkaline 463 H Phosphatase Total Protein 6.4 Albumin 3.7 Globulin 2.70 Albumin/Globulin 1.37 Ratio Test 02/09/18 08:09 Bedside Glucose 217 Subjective 24 Hr Interval Summary Constitutional: other (sleepy hard to wake up) Exam/Review of Systems Vital Signs Vitals Vital Signs Date Temp Pulse Resp B/P (MAP) Pulse Ox O2 O2 Flow FiO2 Time Delivery Rate 02/09/18 68 08:05 02/09/18 98.6 16 93/59 (70) 95 Room Air 04:06 Intake and Output 02/08/18 02/08/18 02/09/18 1515:00 23:00 07:00 IntakeIntake Total 450 ml 350 ml BalanceBalance 450 ml 350 ml Exam Constitutional: other (sleeping) Psych: no complaints Head: normocephalic ENMT: nl external ears & nose Respiratory: clear to auscultation Cardiovascular: regular rate and rhythm Gastrointestinal: soft Medications Medications Current Medications Clopidogrel Bisulfate (plaVIX) 75 mg DAILY PO Last administered on 02/08/18 09:16; Admin Dose 75 MG; Start 01/27/18 at 21:00 Acetaminophen/ Hydrocodone Bitart ([place] (10/325)) 2 tab Q6H PRN PO MODERATE PAIN LEVEL 4-6 Last administered on 02/02/18 17:52; Admin Dose 2 TAB; Start 01/27/18 at 13:30; Status Hold Isosorbide Mononitrate (Imdur) 30 mg DAILY PO Last administered on 02/08/18 09:17; Admin Dose 30 MG; Start 01/28/18 at 21:00 Famotidine (Pepcid) 10 mg DAILY PO Last administered on 02/08/18 09:18; Admin Dose 10 MG; Start 01/27/18 at 21:00 Diagnostic Test (Pha) (Accu-Chek) 1 ea 02 XX Last administered on 02/01/18 02:00; Admin Dose 1 EA; Start 01/28/18 at 02:00 Insulin Aspart (Novolog Insulin Pen) NOVOLOG *MILD* ALGORITHM WITH MEALS BEDTIME SC Last administered on 02/06/18 11:55; Admin Dose 2 UNIT; Start 01/27/18 at 17:35 Metoprolol Tartrate (Lopressor) 25 mg BID PO Last administered on 02/08/18 09:18; Admin Dose 25 MG; Start 01/27/18 at 21:00 Ranolazine (Ranexa) 500 mg Q12 PO Last administered on 02/08/18 21:08; Admin Dose 500 MG; Start 01/27/18 at 21:00 Zolpidem Tartrate (Ambien) 5 mg HS MAY REPEAT X 1 PRN PO INSOMNIA Last adminis tered on 02/09/18 00:24; Admin Dose 5 MG; Start 01/27/18 at 13:30 Diphenhydramine HCl (Benadryl) 25 mg Q6H PRN IV ITCHING Last administered on 02/07/18 17:49; Admin Dose 25 MG; Start 01/27/18 at 14:30 Epoetin Geo (Epogen (Esrd)) 8,000 units AFTER DIALYSIS SC Last administered on 02/05/18 17:49; Admin Dose 8,000 UNITS; Start 01/28/18 at 08:00 Levothyroxine Sodium (Synthroid) 225 mcg DAILY@06 PO Last administered on 02/09/18at 06:06; Admin Dose 225 MCG; Start 01/29/18 at 06:00 Aspirin (Aspirin) 81 mg DAILY PO Last administered on 02/08/18at 09:17; Admin Dose 81 MG; Start 01/28/18 at 13:00 Miscellaneous Information 1 ea NOTE XX ; Start 01/28/18 at 14:00 Glucose (Glutose) 15 gm Q15M PRN PO DECREASED GLUCOSE; Start 01/28/18 at 14:00 Glucose (Glutose) 22.5 gm Q15M PRN PO DECREASED GLUCOSE; Start 01/28/18 at 14:00 Dextrose (D50w Syringe) 25 ml Q15M PRN IV DECREASED GLUCOSE; Start 01/28/18 at 14:00 Dextrose (D50w Syringe) 50 ml Q15M PRN IV DECREASED GLUCOSE; Start 01/28/18 at 14:00 Glucagon (Glucagen) 1 mg Q15M PRN IM DECREASED GLUCOSE; Start 01/28/18 at 14:00 Glucose (Glutose) 15 gm Q15M PRN BUCCAL DECREASED GLUCOSE; Start 01/28/18 at 14:00 Sevelamer Carbonate (Renvela) 2.4 gm WITH MEALS GTB Last administered on 02/08/18at 17:41; Admin Dose 2.4 GM; Start 01/29/18 at 11:30 Ondansetron HCl (Zofran Inj) 4 mg Q4H PRN IV NAUSEA AND/OR VOMITING Last administered on 02/08/18at 12:09; Admin Dose 4 MG; Start 01/30/18 at 20:30 Metoclopramide HCl (Reglan) 10 mg Q6H PRN IV NAUSEA Last administered on 02/08/18at 13:24; Admin Dose 10 MG; Start 01/31/18 at 11:00 Pantoprazole (Protonix Tab) 40 mg DAILY@06 PO Last administered on 02/09/18at 06:06; Admin Dose 40 MG; Start 02/01/18 at 12:00 Albumin Human 100 ml @ 100 mls/hr DURING DIALYSIS PRN IV BLOOD PRESSURE SUPPORT Last administered on 02/01/18at 19:12; Admin Dose 100 MLS/HR; Start 02/01/18 at 18:30 Haloperidol (Haldol) 2 mg Q6H PRN PO Hallucination Last administered on 02/06/18 16:47; Admin Dose 2 MG; Start 02/03/18 at 16:00 Mirtazapine (Remeron) 7.5 mg PC DINNER PO Last administered on 02/07/18 19:03; Admin Dose 7.5 MG; Start 02/03/18 at 18:55 Amlodipine Besylate (Norvasc) 2.5 mg DAILY PO Last administered on 02/08/18 09:17; Admin Dose 2.5 MG; Start 02/07/18 at 09:00 Acetaminophen (Tylenol Tab) 650 mg Q6H PRN PO MILD PAIN(1-3)OR ELEVATED TEMP Last administered on 02/08/18at 09:24; Admin Dose 650 MG; Start 02/08/18 at 09:00 Nystatin (Nystatin Susp) 5 ml QID PO Last administered on 02/08/18at 17:41; Admin Dose 5 ML; Start 02/08/18 at 09:00 Cinacalcet (Sensipar) 30 mg WITH BREAKFAST PO ; Start 02/09/18 at 07:55 Tramadol HCl (Ultram) 50 mg Q8 PRN PO MODERATE PAIN LEVEL 4-6 Last administered on 02/08/18 21:08; Admin Dose 50 MG; Start 02/08/18 at 20:30 KISHORE HURST MD Feb 09, 2018 08:16
[2018-02-09] MEDS: RANOLAZINE (SR) 500 MG TAB PO SCH ×2 (08:30→20:25)
[2018-02-09] MEDS: CLOPIDOGREL 75 MG TAB PO SCH (08:30)
[2018-02-09] MEDS: ASPIRIN 81 MG TAB PO SCH (08:30)
[2018-02-09] MEDS: NYSTATIN SUSP 5 ML CUP PO SCH ×4 (08:30→20:25)
[2018-02-09] MEDS ORDERED: CALCITRIOL 1 MCG INJ IV ONE ×2 (08:30→15:00)
[2018-02-09] MEDS: SEVELAMER CARBONATE 2.4 GM PKT GTB SCH ×3 (08:30→17:47)
[2018-02-09] MEDS: FAMOTIDINE 20 MG TAB PO SCH (08:30)
[2018-02-09] MEDS: ISOSORBIDE MONONITRATE(SR)30 MG TAB PO SCH (08:31)
[2018-02-09] MEDS: AMLODIPINE 2.5 MG TAB PO SCH (08:31)
[2018-02-09] MEDS: METOPROLOL 25 MG TAB PO SCH ×2 (08:31→17:47)
[2018-02-09] MEDS: INSULIN ASPART [NOVOLOG] 3 ML PEN SC SCH ×4 (08:39→20:24)
--- NOTE | 2018-02-09 09:49 | PN ---
DATE: 02/09/2018 SUBJECTIVE: The patient is stable, no events overnight. No fever, chills, nausea, or vomiting. OBJECTIVE: VITAL SIGNS: Blood pressure is 89/56, respirations 20, pulse 68, temperature 98.3. HEENT: Head is normocephalic. NECK: Supple. HEART: Regular rate. LUNGS: Show diminished breath sounds at the base. ABDOMEN: Soft, nontender to palpation. No rebound or guarding. EXTREMITIES: Negative for clubbing, cyanosis, no edema. DERMATOLOGIC: No rashes. MUSCULOSKELETAL: No joint effusions. NEUROLOGIC: No change in exam. MEDICATIONS: Reviewed. LABORATORY DATA: Shows a sodium 143, potassium 4.7, chloride 100, BUN 36, creatinine 6.24, calcium 6 .5. ASSESSMENT AND PLAN: 1. End-stage renal disease. The patient had hemodialysis yesterday, tolerated well. Plan for next dialysis tomorrow. 2. Hyperkalemia, improved. Continue dialysis on low potassium bath. 3. Anemia. Continue to monitor hemoglobin and hematocrit levels. Continue Epogen as needed. 4. Mineral bone disorder, monitor calcium and phosphorus levels. Continue Sensipar. 5. Acute encephalopathy, etiology is toxic metabolic. Continue current medical management. 6. Diabetes. Continue current insulin regimen. 7. History of coronary artery disease. Continue current treatment plan. Dictated By: HARVEY LUCIO DO NR/NTS Conf#: [id number] DID#: [id number] CC: KEZIA COLBERT MD; HARVEY LUCIO DO; KISHORE HURST MD;*EndCC*
[2018-02-09] MEDS: ALBUMIN HUMAN 25% 100 ML IV PRN (11:46)
--- NOTE | 2018-02-09 12:03 | CONS ---
Assessment/Plan Assessment/Plan Hospital Course A: 52 yo F with ESRD on HD and other comorbidities... who initially presented for evaluation of shortness of breath and other sx... Of note, she is reported to have missed several hemodialysis sessions prior to presentation... Neurology is consulted to evaluate altered mental status. Most clinically consistent with an acute toxic metabolic encephalopathy Stroke is unlikely. Seizure is unlikely. Head CT is unrevealing. P: OK to defer additional neuroimaging for now Cont medical management per primary Reorient as necessary Limit sedating medications where possible PT/OT as tolerated Will follow clinically Result Diagram: 02/07/18 0549 02/09/18 0556 Results 24hrs Laboratory Tests Test 02/08/18 12:04 02/08/18 16:54 02/08/18 21:03 02/09/18 05:56 Bedside Glucose 79 134 143 Sodium Level 143 Potassium Level 4.7 Chloride Level 100 Carbon Dioxide 26 Level Anion Gap 17 H Blood Urea 36 #H Nitrogen Creatinine 6.24 H Est Glomerular 9 L Filtrat Rate mL/min Glucose Level 211 # Calcium Level 6.0 L Ionized Calcium 0.8 L (Measured) Phosphorus Level 3.5 Total Bilirubin 0.2 Direct Bilirubin 0.00 Indirect 0.2 Bilirubin Aspartate Amino 339 H Transf (AST/SGOT ) Alanine 706 H Aminotransferase (ALT/SGPT) Alkaline 463 H Phosphatase Total Protein 6.4 Albumin 3.7 Globulin 2.70 Albumin/Globulin 1.37 Ratio Test 02/09/18 08:09 Bedside Glucose 217 Consultation Date/Type/Reason Admit Date/Time Jan 27, 2018 at 04:03 Type of Consult Neurology Requesting Provider: KISHORE HURST MD Date/Time of Note DATE: 02/09/18 TIME: 12:03 24 HR Interval Summary Free Text/Dictation Continues telemetry monitoring. Receiving HD right now. Pt is without complaints at this time. Exam Vital Signs Vitals Vital Signs Date Temp Pulse Resp B/P (MAP) Pulse Ox O2 O2 Flow FiO2 Time Delivery Rate 02/09/18 98.3 68 20 89/57 (68) 100 Room Air 08:07 Intake and Output 02/08/18 02/08/18 02/09/18 1515:00 23:00 07:00 IntakeIntake Total 450 ml 350 ml BalanceBalance 450 ml 350 ml Exam PE: Gen Appearance: No Apparent Distress HEENT: Normocephalic Cardiovascular: Regular rate Lungs: Clear bilaterally Abdomen: Soft Extremities: Dry NE: The patient was alert though somewhat disoriented. Oriented to self, place, and situation. Language was normal. Fund of knowledge was normal. Pupils were equal and reactive to light. There was no afferent pupillary defect. Visual alvarez were normal. Funduscopic examination was limited.. Extra-ocular movements were full. Ptosis was absent. There was no nystagmus. Facial sensation was normal. Face was symmetric with normal strength. Hearing was intact. Palate movements were normal. Neck strength was normal. There was normal tongue bulk and speed of movement. Tone was normal. Muscle bulk was normal. I did not see fasciculations. Arms and legs were mildly weak and symmetric. . Vibration sensation was normal. Temperature and pinprick sensation was normal. Rapid alternating movements were normal. There was no dysmetria. There was no intention tremor. Gait was deferred due to bedrest. Arm and leg reflexes were 2+ and symmetric. Merlos's sign was absent. Plantar responses were flexor. JASEN GRIFFITH NP Feb 09, 2018 12:03 TAMMI DELEON Feb 09, 2018 20:38
--- NOTE | 2018-02-09 13:31 | QN ---
Documentation Comment 1300 visit patient still sleepy in the middle of dialysis hypotensive will hold on dose of B-mariaelena and hold amlodipine cause of sedation ?? will continue present Rx KISHORE HURST MD Feb 09, 2018 13:31
--- NOTE | 2018-02-09 14:04 | NUR ---
Order change due to patient condition. Blood pressure SBP less than 90, Addendum: 02/09/18 at 1409 by SAMANTHA JHA Order change due to patient condition. Blood pressure SBP less than 90 mmHg, Ana Valentine MD notified of patient condition prior to treatment start, order no UF, administer Albumin 25% 100mL IVPB as needed. BFR reduced to 350 from 400 per city distribution clerk judgement, patient not able to tolerate BFR greater than 350.
--- NOTE | 2018-02-09 14:24 | CONS ---
Date/Time of Note Date/Time of Note DATE: 02/09/18 TIME: 14:22 Assessment/Plan Assessment/Plan Assessment/Plan End-stage renal disease on hemodialysis CAD with history of PCI History of hypertension, currently with hypotension Diabetes Dyslipidemia Encephalopathy -Patient with blood pressure on the lower side, would DC Norvasc, holding parameters on isosorbide. Continue antiplatelet therapy if no contraindication. Fluid management via hemodialysis as per nephrology. Result Diagram: 02/07/18 0549 02/09/18 0556 Results 24hrs Laboratory Tests Test 02/08/18 16:54 02/08/18 21:03 02/09/18 05:56 02/09/18 08:09 Bedside Glucose 134 143 217 Sodium Level 143 Potassium Level 4.7 Chloride Level 100 Carbon Dioxide 26 Level Anion Gap 17 H Blood Urea 36 #H Nitrogen Creatinine 6.24 H Est Glomerular 9 L Filtrat Rate mL/min Glucose Level 211 # Calcium Level 6.0 L Ionized Calcium 0.8 L (Measured) Phosphorus Level 3.5 Total Bilirubin 0.2 Direct Bilirubin 0.00 Indirect 0.2 Bilirubin Aspartate Amino 339 H Transf (AST/SGOT ) Alanine 706 H Aminotransferase (ALT/SGPT) Alkaline 463 H Phosphatase Total Protein 6.4 Albumin 3.7 Globulin 2.70 Albumin/Globulin 1.37 Ratio Test 02/09/18 12:19 Bedside Glucose 184 Consultation Date/Type/Reason Admit Date/Time Jan 27, 2018 at 04:03 Initial Consult Date Type of Consult cv Requesting Provider: KISHORE HURST MD 24 HR Interval Summary Free Text/Dictation Patient seen and examined. Underwent hemodialysis Exam/Review of Systems Vital Signs Vitals Vital Signs Date Temp Pulse Resp B/P (MAP) Pulse Ox O2 O2 Flow FiO2 Time Delivery Rate 02/09/18 73 14:02 02/09/18 16 88/56 (67) 95 Nasal 2.0 12:40 Cannula 02/09/18 98.3 08:07 Intake and Output 02/08/18 02/08/18 02/09/18 1515:00 23:00 07:00 IntakeIntake Total 450 ml 350 ml BalanceBalance 450 ml 350 ml Exam Sleeping, undergoing hemodialysis, son at bedside Head: normocephalic Respiratory: other (Coarse breath sounds bilaterally, no wheezing) Cardiovascular: regular rate and rhythm, other (S1-S2 heard) Gastrointestinal: soft, non-tender, bowel sounds Extremities: other (No significant edema) Medications Medications Current Medications Clopidogrel Bisulfate (plaVIX) 75 mg DAILY PO Last administered on 02/09/18 08:30; Admin Dose 75 MG; Start 01/27/18 at 21:00 Acetaminophen/ Hydrocodone Bitart ([place] (10/325)) 2 tab Q6H PRN PO MODERATE PAIN LEVEL 4-6 Last administered on 02/02/18 17:52; Admin Dose 2 TAB; Start 01/27/18 at 13:30; Status Hold Isosorbide Mononitrate (Imdur) 30 mg DAILY PO Last administered on 02/08/18 09:17; Admin Dose 30 MG; Start 01/28/18 at 21:00 Famotidine (Pepcid) 10 mg DAILY PO Last administered on 02/09/18 08:30; Admin Dose 10 MG; Start 01/27/18 at 21:00 Diagnostic Test (Pha) (Accu-Chek) 1 ea 02 XX Last administered on 02/01/18 02:00; Admin Dose 1 EA; Start 01/28/18 at 02:00 Insulin Aspart (Novolog Insulin Pen) NOVOLOG *MILD* ALGORITHM WITH MEALS BEDTIME SC Last administered on 02/09/18 08:39; Admin Dose 3 UNIT; Start 01/27/18 at 17:35 Ranolazine (Ranexa) 500 mg Q12 PO Last administered on 02/09/18 08:30; Admin Dose 500 MG; Start 01/27/18 at 21:00 Zolpidem Tartrate (Ambien) 5 mg HS MAY REPEAT X 1 PRN PO INSOMNIA Last administered on 02/09/18 00:24; Admin Dose 5 MG; Start 01/27/18 at 13:30; Status Hold Diphenhydramine HCl (Benadryl) 25 mg Q6H PRN IV ITCHING Last administered on 02/07/18 17:49; Admin Dose 25 MG; Start 01/27/18 at 14:30 Epoetin Geo (Epogen (Esrd)) 8,000 units AFTER DIALYSIS SC Last administered on 02/05/18 17:49; Admin Dose 8,000 UNITS; Start 01/28/18 at 08:00 Levothyroxine Sodium (Synthroid) 225 mcg DAILY@06 PO Last administered on 02/09/18at 06:06; Admin Dose 225 MCG; Start 01/29/18 at 06:00 Aspirin (Aspirin) 81 mg DAILY PO Last administered on 02/09/18at 08:30; Admin Dose 81 MG; Start 01/28/18 at 13:00 Miscellaneous Information 1 ea NOTE XX ; Start 01/28/18 at 14:00 Glucose (Glutose) 15 gm Q15M PRN PO DECREASED GLUCOSE; Start 01/28/18 at 14:00 Glucose (Glutose) 22.5 gm Q15M PRN PO DECREASED GLUCOSE; Start 01/28/18 at 14:00 Dextrose (D50w Syringe) 25 ml Q15M PRN IV DECREASED GLUCOSE; Start 01/28/18 at 14:00 Dextrose (D50w Syringe) 50 ml Q15M PRN IV DECREASED GLUCOSE; Start 01/28/18 at 14:00 Glucagon (Glucagen) 1 mg Q15M PRN IM DECREASED GLUCOSE; Start 01/28/18 at 14:00 Glucose (Glutose) 15 gm Q15M PRN BUCCAL DECREASED GLUCOSE; Start 01/28/18 at 14:00 Sevelamer Carbonate (Renvela) 2.4 gm WITH MEALS GTB Last administered on 02/09/18at 08:30; Admin Dose 2.4 GM; Start 01/29/18 at 11:30 Ondansetron HCl (Zofran Inj) 4 mg Q4H PRN IV NAUSEA AND/OR VOMITING Last administered on 02/08/18at 12:09; Admin Dose 4 MG; Start 01/30/18 at 20:30 Metoclopramide HCl (Reglan) 10 mg Q6H PRN IV NAUSEA Last administered on 02/08/18at 13:24; Admin Dose 10 MG; Start 01/31/18 at 11:00 Pantoprazole (Protonix Tab) 40 mg DAILY@06 PO Last administered on 02/09/18at 06:06; Admin Dose 40 MG; Start 02/01/18 at 12:00 Albumin Human 100 ml @ 100 mls/hr DURING DIALYSIS PRN IV BLOOD PRESSURE SUPPORT Last administered on 02/09/18at 11:46; Admin Dose 100 MLS/HR; Start 02/01/18 at 18:30 Haloperidol (Haldol) 2 mg Q6H PRN PO Hallucination Last administered on 02/06/18 16:47; Admin Dose 2 MG; Start 02/03/18 at 16:00 Mirtazapine (Remeron) 7.5 mg PC DINNER PO Last administered on 02/07/18at 19:03; Admin Dose 7.5 MG; Start 02/03/18 at 18:55 Amlodipine Besylate (Norvasc) 2.5 mg DAILY PO Last administered on 02/08/18 09:17; Admin Dose 2.5 MG; Start 02/07/18 at 09:00 Acetaminophen (Tylenol Tab) 650 mg Q6H PRN PO MILD PAIN(1-3)OR ELEVATED TEMP Last administered on 02/08/18 09:24; Admin Dose 650 MG; Start 02/08/18 at 09:00 Nystatin (Nystatin Susp) 5 ml QID PO Last administered on 02/09/18 08:30; Admin Dose 5 ML; Start 02/08/18 at 09:00 Cinacalcet (Sensipar) 30 mg WITH BREAKFAST PO ; Start 02/09/18 at 07:55; Status Hold Tramadol HCl (Ultram) 50 mg Q8 PRN PO MODERATE PAIN LEVEL 4-6 Last administered on 02/08/18 21:08; Admin Dose 50 MG; Start 02/08/18 at 20:30 Sodium Chloride 1,000 ml @ 75 mls/hr [id number] IV Last administered on 02/09/18 08:09; Admin Dose 50 MLS/HR; Start 02/09/18 at 08:09 Metoprolol Tartrate (Lopressor) 25 mg AC DINNER PO ; Start 02/09/18 at 17:25 Calcitriol (Calcitriol) 1 mcg ONCE ONCE IV ; Start 02/09/18 at 13:30; Stop 02/09/18 at 13:31; Status Heri Carpenter DO Feb 09, 2018 14:24
--- NOTE | 2018-02-09 15:47 | NUR ---
[facility] Patient: Christine Youngblood : 1965 Age/Sex: 52/F Unit#: [id number] Room/Bed: 506/A User: Michael Schulte PTA Date: 02/09/18 14:00 Type: PT Technical Record Therapy day number 3 Total Minutes 0 Total Units 0 PT Technical Record Comment PT notes: patients' on dialysis; will follow up next treatment schedule.
[2018-02-09] MEDS: MIRTAZAPINE 15 MG TAB PO SCH (17:48)
--- NOTE | 2018-02-09 18:24 | NUR ---
EOSS: pt resting on bed comfortably, pt drowsy by arousable throughout shift. hourly rounding done per unit's protocol, bed brakes engaged, side rails up, call light within reach, will endorse to night guard nurse.
[2018-02-09 20:02] LABS: PTH CALCIUM 6.4 mg/dL (8.6-10.4)
--- NOTE | 2018-02-09 22:33 | NUR ---
Pt is alert and oriented x 3. In good spirits. pt's son in the room. Denies pain. Ate good amount of food for late dinner. On going IVF. Reposition for comfort. Glucose level at 2100 was WNL.
[2018-02-10] VITALS (13 sets, daily range): BP systolic 113–124; BP diastolic 63–73; PULSE 73–79; RESP 16–19
[2018-02-10] MEDS: PANTOPRAZOLE (EC) 40 MG TAB PO SCH (04:56)
[2018-02-10] MEDS: SOD CHLORIDE 0.9% 1,000 ML IV SCH ×2 (04:56→21:31)
[2018-02-10] MEDS: LEVOTHYROXINE 100 MCG TAB PO SCH (04:56)
--- NOTE | 2018-02-10 05:40 | NUR ---
Pt refused bedbath. She told REPACK ROOM WORKER that [facility] had it yesterday. Will endorse to morning nurse.
--- NOTE | 2018-02-10 05:59 | NUR ---
Pt is now awake. Denies pain. No resp distress noted. On 2L of O2 via nasal cannula. Bed alarm on ,call light within reach.
[2018-02-10] MEDS: SEVELAMER CARBONATE 2.4 GM PKT GTB SCH ×2 (07:55→11:50)
[2018-02-10] MEDS: INSULIN ASPART [NOVOLOG] 3 ML PEN SC SCH ×4 (07:55→21:00)
[2018-02-10] MEDS: CLOPIDOGREL 75 MG TAB PO SCH (08:05)
[2018-02-10] MEDS: RANOLAZINE (SR) 500 MG TAB PO SCH ×2 (08:05→21:30)
[2018-02-10] MEDS: ISOSORBIDE MONONITRATE(SR)30 MG TAB PO SCH (08:05)
[2018-02-10] MEDS: NYSTATIN SUSP 5 ML CUP PO SCH ×5 (08:06→21:30)
[2018-02-10] MEDS: FAMOTIDINE 20 MG TAB PO SCH (08:06)
[2018-02-10] MEDS: ASPIRIN 81 MG TAB PO SCH (08:06)
--- NOTE | 2018-02-10 10:01 | PN ---
DATE: 02/10/2018 SUBJECTIVE: The patient is stable, no events overnight. The patient had hemodialysis yesterday, karma erated well. OBJECTIVE: VITAL SIGNS: Blood pressure is 124/73, pulse 76, respirations 16, temperature 99.2. HEENT: Head is normocephalic. NECK: Supple. HEART: Regular rate. LUNGS: Show diminished breath sounds at the base. ABDOMEN: Soft, nontender to palpation. No rebound or guarding. EXTREMITIES: Negative for clubbing, cyanosis, no edema. DERMATOLOGIC: No rashes. MUSCULOSKELETAL: No joint effusions. NEUROLOGIC: No change in exam. MEDICATIONS: The patient's medications have been reviewed. LABORATORY DATA: Shows white count 5.9, hemoglobin 9.0, platelet count is 62. Sodium 142, potassium 4.1, BUN 21, creatinine 4.41. ASSESSMENT AND PLAN: 1. End-stage renal disease. The patient had hemodialysis yesterday, tolerated well. Plan for dialy sis tomorrow. 2. Hyperkalemia, improved. Continue dialysis a low potassium bath. 3. Anemia. Monitor hemoglobin and hematocrit levels. We will continue Epogen. 4. Mineral bone disorder, monitor calcium and phosphorus levels. The patient's Sensipar was held du e to persistent hypocalcemia. Will continue to monitor closely. The patient's PTH levels are marked ly elevated despite recent parathyroidectomy. 5. Acute encephalopathy, etiology toxic metabolic. Continue to monitor. 6. Diabetes. Continue current insulin regimen. 7. Coronary artery disease. Continue current treatment plan. Dictated By: HARVEY LUCIO DO NR/NTS Conf#: [id number] DID#: [id number] CC: KISHORE HURST MD; KEZIA COLBERT MD;*EndCC*
--- NOTE | 2018-02-10 11:42 | PN ---
Date/Time of Note Date/Time of Note DATE: 02/10/18 TIME: 11:32 Assessment/Plan VTE Prophylaxis Risk score (from Ns)>0 risk: 3 SCD applied (from Ns): No SCD contraindicated: low risk/ambulating Pharmacological prophylaxis: other (plavix) Lines/Catheters IV [facility]ter Type [facility]from [facility]): [facility] Urinary Cath still in place: No Assessment/Plan Hospital Course patient received for dialysis scheduled for second one today will transfer to telemetry when stable Assessment/Plan patient more alert today ambulating LFT's improving seem adam improving. will have logistics planner evaluate re possible discharge one to two days from now Result Diagram: 02/10/18 0543 02/10/18 0543 Results 24hrs Laboratory Tests Test 02/09/18 12:19 02/09/18 17:39 02/09/18 19:37 02/10/18 05:43 Bedside Glucose 184 147 113 White Blood Count 5.9 # Red Blood Count 3.75 L Hemoglobin 11.0 L Hematocrit 35.2 L Mean Corpuscular 93.9 Volume Mean Corpuscular 29.3 Hemoglobin Mean Corpuscular 31.3 L Hemoglobin Concent Red Cell 20.2 H Distribution Width Platelet Count 62 #L Mean Platelet 10.0 Volume Immature 0.300 Granulocytes % Neutrophils % 52.4 Lymphocytes % 31.0 Monocytes % 13.1 H Eosinophils % 2.7 Basophils % 0.5 Nucleated Red 1.0 H Blood Cells % Immature 0.020 Granulocytes # Neutrophils # 3.1 Lymphocytes # 1.8 Monocytes # 0.8 Eosinophils # 0.2 Basophils # 0.0 Nucleated Red 0.1 H Blood Cells # Sodium Level 142 Potassium Level 4.1 Chloride Level 97 Carbon Dioxide 32 H Level Anion Gap 13 Blood Urea 21 #H Nitrogen Creatinine 4.41 #H Est Glomerular 13 L Filtrat Rate mL/min Glucose Level 148 # Calcium Level 6.6 L Total Bilirubin 0.4 Direct Bilirubin 0.00 Indirect Bilirubin 0.4 Aspartate Amino 173 H Transf (AST/SGOT) Alanine 529 H Aminotransferase ( ALT/SGPT) Alkaline 422 H Phosphatase Total Protein 6.4 Albumin 3.6 Globulin 2.80 Albumin/Globulin 1.28 Ratio Test 02/10/18 08:03 Bedside Glucose 133 Subjective 24 Hr Interval Summary Constitutional: no complaints, improved Eyes: no complaints ENT: no complaints Respiratory: no complaints Cardiovascular: no complaints Gastrointestinal: no complaints Genitourinary: no complaints Musculoskeletal: no complaints Skin: no complaints Neurologic: no complaints Endocrine: no complaints Psychological: no complaints Exam/Review of Systems Vital Signs Vitals Vital Signs Date Temp Pulse Resp B/P (MAP) Pulse Ox O2 O2 Flow FiO2 Time Delivery Rate 02/10/18 76 08:57 02/10/18 99.2 16 124/73 95 Room Air 08:00 (90) 02/10/18 2.0 07:40 Intake and Output 02/09/18 02/09/18 02/10/18 1515:00 23:00 07:00 IntakeIntake Total 550 ml 1100 ml OutputOutput Total 500 ml 700 ml BalanceBalance -500 ml -150 ml 1100 ml Exam Constitutional: alert, oriented Psych: nl mood/affect Head: normocephalic Eyes: nl conjunctiva ENMT: nl external ears & nose Neck: supple Respiratory: clear to auscultation Cardiovascular: regular rate and rhythm Gastrointestinal: soft Musculoskeletal: nl extremities to inspection Medications Medications Current Medications Clopidogrel Bisulfate (plaVIX) 75 mg DAILY PO Last administered on 02/10/18 08:05; Admin Dose 75 MG; Start 01/27/18 at 21:00 Acetaminophen/ Hydrocodone Bitart ([place] (10/325)) 2 tab Q6H PRN PO MODERATE PAIN LEVEL 4-6 Last administered on 02/02/18at 17:52; Admin Dose 2 TAB; Start 01/27/18 at 13:30; Status Hold Isosorbide Mononitrate (Imdur) 30 mg DAILY PO Last administered on 02/10/18 08:05; Admin Dose 30 MG; Start 01/28/18 at 21:00 Famotidine (Pepcid) 10 mg DAILY PO Last administered on 02/10/18 08:06; Admin Dose 10 MG; Start 01/27/18 at 21:00 Diagnostic Test (Pha) (Accu-Chek) 1 ea 02 XX Last administered on 02/01/18at 02:00; Admin Dose 1 EA; Start 01/28/18 at 02:00 Insulin Aspart (Novolog Insulin Pen) NOVOLOG *MILD* ALGORITHM WITH MEALS BEDTIME SC Last administered on 02/09/18at 17:55; Admin Dose 1 UNIT; Start 01/27/18 at 17:35 Ranolazine (Ranexa) 500 mg Q12 PO Last administered on 02/10/18 08:05; Admin Dose 500 MG; Start 01/27/18 at 21:00 Zolpidem Tartrate (Ambien) 5 mg HS MAY REPEAT X 1 PRN PO INSOMNIA Last administered on 02/09/18 00:24; Admin Dose 5 MG; Start 01/27/18 at 13:30; Status Hold Diphenhydramine HCl (Benadryl) 25 mg Q6H PRN IV ITCHING Last administered on 02/07/18at 17:49; Admin Dose 25 MG; Start 01/27/18 at 14:30 Epoetin Geo (Epogen (Esrd)) 8,000 units AFTER DIALYSIS SC Last administered on 02/05/18 17:49; Admin Dose 8,000 UNITS; Start 01/28/18 at 08:00 Levothyroxine Sodium (Synthroid) 225 mcg DAILY@06 PO Last administered on 02/10/18 04:56; Admin Dose 225 MCG; Start 01/29/18 at 06:00 Aspirin (Aspirin) 81 mg DAILY PO Last administered on 02/10/18 08:06; Admin Dose 81 MG; Start 01/28/18 at 13:00 Miscellaneous Information 1 ea NOTE XX ; Start 01/28/18 at 14:00 Glucose (Glutose) 15 gm Q15M PRN PO DECREASED GLUCOSE; Start 01/28/18 at 14:00 Glucose (Glutose) 22.5 gm Q15M PRN PO DECREASED GLUCOSE; Start 01/28/18 at 14:00 Dextrose (D50w Syringe) 25 ml Q15M PRN IV DECREASED GLUCOSE; Start 01/28/18 at 14:00 Dextrose (D50w Syringe) 50 ml Q15M PRN IV DECREASED GLUCOSE; Start 01/28/18 at 14:00 Glucagon (Glucagen) 1 mg Q15M PRN IM DECREASED GLUCOSE; Start 01/28/18 at 14:00 Glucose (Glutose) 15 gm Q15M PRN BUCCAL DECREASED GLUCOSE; Start 01/28/18 at 14:00 Sevelamer Carbonate (Renvela) 2.4 gm WITH MEALS GTB Last administered on at 17:47; Admin Dose 2.4 GM; Start 01/29/18 at 11:30 Ondansetron HCl (Zofran Inj) 4 mg Q4H PRN IV NAUSEA AND/OR VOMITING Last administered on 02/08/18 12:09; Admin Dose 4 MG; Start 01/30/18 at 20:30 Metoclopramide HCl (Reglan) 10 mg Q6H PRN IV NAUSEA Last administered on 02/08/18 13:24; Admin Dose 10 MG; Start 01/31/18 at 11:00 Pantoprazole (Protonix Tab) 40 mg DAILY@06 PO Last administered on 02/10/18 04:56; Admin Dose 40 MG; Start 02/01/18 at 12:00 Albumin Human 100 ml @ 100 mls/hr DURING DIALYSIS PRN IV BLOOD PRESSURE SUPPORT Last administered on 02/09/18 11:46; Admin Dose 100 MLS/HR; Start 02/01/18 at 18:30 Haloperidol (Haldol) 2 mg Q6H PRN PO Hallucination Last administered on 02/06/18 16:47; Admin Dose 2 MG; Start 02/03/18 at 16:00 Mirtazapine (Remeron) 7.5 mg PC DINNER PO Last administered on 02/09/18 17:48; Admin Dose 7.5 MG; Start 02/03/18 at 18:55 Acetaminophen (Tylenol Tab) 650 mg Q6H PRN PO MILD PAIN(1-3)OR ELEVATED TEMP Last administered on 02/08/18 09:24; Admin Dose 650 MG; Start 02/08/18 at 09:00 Nystatin (Nystatin Susp) 5 ml QID PO Last administered on 02/09/18 20:25; Admin Dose 5 ML; Start 02/08/18 at 09:00 Cinacalcet (Sensipar) 30 mg WITH BREAKFAST PO ; Start 02/09/18 at 07:55; Status Hold Tramadol HCl (Ultram) 50 mg Q8 PRN PO MODERATE PAIN LEVEL 4-6 Last administered on 02/08/18 21:08; Admin Dose 50 MG; Start 02/08/18 at 20:30 Sodium Chloride 1,000 ml @ 75 mls/hr [id number] IV Last administered on 02/10/18 04:56; Admin Dose 75 MLS/HR; Start 02/09/18 at 08:09 Metoprolol Tartrate (Lopressor) 25 mg AC DINNER PO Last administered on 02/09/18at 17:47; Admin Dose 25 MG; Start 02/09/18 at 17:25 KISHORE HURST MD Feb 10, 2018 11:42
--- NOTE | 2018-02-10 11:53 | CONS ---
Date/Time of Note Date/Time of Note DATE: 02/10/18 TIME: 11:51 Assessment/Plan Assessment/Plan Assessment/Plan End-stage renal disease on hemodialysis CAD with history of PCI History of hypertension Diabetes Dyslipidemia Encephalopathy -Blood pressure trend overall improved after stopping Norvasc, continue beta-mariaelena and isosorbide as tolerated. Continue antiplatelet therapy if no contraindication. Fluid management via hemodialysis as per nephrology. DC planning Result Diagram: 02/10/18 0543 02/10/18 0543 Results 24hrs Laboratory Tests Test 02/09/18 12:19 02/09/18 17:39 02/09/18 19:37 02/10/18 05:43 Bedside Glucose 184 147 113 White Blood Count 5.9 # Red Blood Count 3.75 L Hemoglobin 11.0 L Hematocrit 35.2 L Mean Corpuscular 93.9 Volume Mean Corpuscular 29.3 Hemoglobin Mean Corpuscular 31.3 L Hemoglobin Concent Red Cell 20.2 H Distribution Width Platelet Count 62 #L Mean Platelet 10.0 Volume Immature 0.300 Granulocytes % Neutrophils % 52.4 Lymphocytes % 31.0 Monocytes % 13.1 H Eosinophils % 2.7 Basophils % 0.5 Nucleated Red 1.0 H Blood Cells % Immature 0.020 Granulocytes # Neutrophils # 3.1 Lymphocytes # 1.8 Monocytes # 0.8 Eosinophils # 0.2 Basophils # 0.0 Nucleated Red 0.1 H Blood Cells # Sodium Level 142 Potassium Level 4.1 Chloride Level 97 Carbon Dioxide 32 H Level Anion Gap 13 Blood Urea 21 #H Nitrogen Creatinine 4.41 #H Est Glomerular 13 L Filtrat Rate mL/min Glucose Level 148 # Calcium Level 6.6 L Total Bilirubin 0.4 Direct Bilirubin 0.00 Indirect Bilirubin 0.4 Aspartate Amino 173 H Transf (AST/SGOT) Alanine 529 H Aminotransferase ( ALT/SGPT) Alkaline 422 H Phosphatase Total Protein 6.4 Albumin 3.6 Globulin 2.80 Albumin/Globulin 1.28 Ratio Test 02/10/18 08:03 Bedside Glucose 133 Consultation Date/Type/Reason Admit Date/Time Jan 27, 2018 at 04:03 Initial Consult Date Type of Consult cv Requesting Provider: KISHORE HURST MD 24 HR Interval Summary Free Text/Dictation Overall feeling better, denies chest pain, shortness of breath at rest or with ambulation Exam/Review of Systems Vital Signs Vitals Vital Signs Date Temp Pulse Resp B/P (MAP) Pulse Ox O2 O2 Flow FiO2 Time Delivery Rate 02/10/18 76 08:57 02/10/18 99.2 16 124/73 95 Room Air 08:00 (90) 02/10/18 2.0 07:40 Intake and Output 02/09/18 02/09/18 02/10/18 1515:00 23:00 07:00 IntakeIntake Total 550 ml 1100 ml OutputOutput Total 500 ml 700 ml BalanceBalance -500 ml -150 ml 1100 ml Exam No apparent distress Constitutional: alert, oriented Head: normocephalic Respiratory: other (Coarse breath sounds bilaterally, no wheezing) Cardiovascular: regular rate and rhythm, other Gastrointestinal: soft, non-tender, bowel sounds Extremities: edema (Trace) Medications Medications Current Medications Clopidogrel Bisulfate (plaVIX) 75 mg DAILY PO Last administered on 02/10/18 08:05; Admin Dose 75 MG; Start 01/27/18 at 21:00 Acetaminophen/ Hydrocodone Bitart ([place] (10/325)) 2 tab Q6H PRN PO MODERATE PAIN LEVEL 4-6 Last administered on 02/02/18 17:52; Admin Dose 2 TAB; Start 01/27/18 at 13:30; Status Hold Isosorbide Mononitrate (Imdur) 30 mg DAILY PO Last administered on 02/10/18 08:05; Admin Dose 30 MG; Start 01/28/18 at 21:00 Famotidine (Pepcid) 10 mg DAILY PO Last administered on 02/10/18 08:06; Admin Dose 10 MG; Start 01/27/18 at 21:00 Diagnostic Test (Pha) (Accu-Chek) 1 ea 02 XX Last administered on 02/01/18at 02:00; Admin Dose 1 EA; Start 01/28/18 at 02:00 Insulin Aspart (Novolog Insulin Pen) NOVOLOG *MILD* ALGORITHM WITH MEALS BEDTIME SC Last administered on 02/09/18 17:55; Admin Dose 1 UNIT; Start 01/27/18 at 17:35 Ranolazine (Ranexa) 500 mg Q12 PO Last administered on 02/10/18 08:05; Admin Dose 500 MG; Start 01/27/18 at 21:00 Zolpidem Tartrate (Ambien) 5 mg HS MAY REPEAT X 1 PRN PO INSOMNIA Last administered on 02/09/18at 00:24; Admin Dose 5 MG; Start 01/27/18 at 13:30; Status Hold Diphenhydramine HCl (Benadryl) 25 mg Q6H PRN IV ITCHING Last administered on 02/07/18 17:49; Admin Dose 25 MG; Start 01/27/18 at 14:30 Epoetin Geo (Epogen (Esrd)) 8,000 units AFTER DIALYSIS SC Last administered on 02/05/18at 17:49; Admin Dose 8,000 UNITS; Start 01/28/18 at 08:00 Levothyroxine Sodium (Synthroid) 225 mcg DAILY@06 PO Last administered on 02/10/18 04:56; Admin Dose 225 MCG; Start 01/29/18 at 06:00 Aspirin (Aspirin) 81 mg DAILY PO Last administered on 02/10/18 08:06; Admin Dose 81 MG; Start 01/28/18 at 13:00 Miscellaneous Information 1 ea NOTE XX ; Start 01/28/18 at 14:00 Glucose (Glutose) 15 gm Q15M PRN PO DECREASED GLUCOSE; Start 01/28/18 at 14:00 Glucose (Glutose) 22.5 gm Q15M PRN PO DECREASED GLUCOSE; Start 01/28/18 at 14:00 Dextrose (D50w Syringe) 25 ml Q15M PRN IV DECREASED GLUCOSE; Start 01/28/18 at 14:00 Dextrose (D50w Syringe) 50 ml Q15M PRN IV DECREASED GLUCOSE; Start 01/28/18 at 14:00 Glucagon (Glucagen) 1 mg Q15M PRN IM DECREASED GLUCOSE; Start 01/28/18 at 14:00 Glucose (Glutose) 15 gm Q15M PRN BUCCAL DECREASED GLUCOSE; Start 01/28/18 at 14:00 Sevelamer Carbonate (Renvela) 2.4 gm WITH MEALS GTB Last administered on 02/09/18at 17:47; Admin Dose 2.4 GM; Start 01/29/18 at 11:30 Ondansetron HCl (Zofran Inj) 4 mg Q4H PRN IV NAUSEA AND/OR VOMITING Last administered on 02/08/18at 12:09; Admin Dose 4 MG; Start 01/30/18 at 20:30 Metoclopramide HCl (Reglan) 10 mg Q6H PRN IV NAUSEA Last administered on 02/08/18 13:24; Admin Dose 10 MG; Start 01/31/18 at 11:00 Pantoprazole (Protonix Tab) 40 mg DAILY@06 PO Last administered on 02/10/18 04:56; Admin Dose 40 MG; Start 02/01/18 at 12:00 Albumin Human 100 ml @ 100 mls/hr DURING DIALYSIS PRN IV BLOOD PRESSURE SUPPORT Last administered on 02/09/18 11:46; Admin Dose 100 MLS/HR; Start 02/01/18 at 18:30 Haloperidol (Haldol) 2 mg Q6H PRN PO Hallucination Last administered on 02/06/18 16:47; Admin Dose 2 MG; Start 02/03/18 at 16:00 Mirtazapine (Remeron) 7.5 mg PC DINNER PO Last administered on 02/09/18 17:48; Admin Dose 7.5 MG; Start 02/03/18 at 18:55 Acetaminophen (Tylenol Tab) 650 mg Q6H PRN PO MILD PAIN(1-3)OR ELEVATED TEMP Last administered on 02/08/18 09:24; Admin Dose 650 MG; Start 02/08/18 at 09:00 Nystatin (Nystatin Susp) 5 ml QID PO Last administered on 02/09/18 20:25; Admin Dose 5 ML; Start 02/08/18 at 09:00 Cinacalcet (Sensipar) 30 mg WITH BREAKFAST PO ; Start 02/09/18 at 07:55; Status Hold Tramadol HCl (Ultram) 50 mg Q8 PRN PO MODERATE PAIN LEVEL 4-6 Last administered on 02/08/18 21:08; Admin Dose 50 MG; Start 02/08/18 at 20:30 Sodium Chloride 1,000 ml @ 75 mls/hr [id number] IV Last administered on 02/10/18 04:56; Admin Dose 75 MLS/HR; Start 02/09/18 at 08:09 Metoprolol Tartrate (Lopressor) 25 mg AC DINNER PO Last administered on 02/09/18 17:47; Admin Dose 25 MG; Start 02/09/18 at 17:25 Heri Schaefer DO Feb 10, 2018 11:53
--- NOTE | 2018-02-10 12:27 | CONS ---
Assessment/Plan Assessment/Plan Hospital Course A: 52 yo F with ESRD on HD and other comorbidities... who initially presented for evaluation of shortness of breath and other sx... Of note, she is reported to have missed several hemodialysis sessions prior to presentation... Neurology is consulted to evaluate altered mental status. Most clinically consistent with an acute toxic-metabolic encephalopathy Stroke is unlikely. Seizure is unlikely. Head CT is unrevealing. P: OK to defer additional neuroimaging for now Cont medical management per primary Reorient as necessary Limit sedating medications where possible PT/OT as tolerated Will follow clinically Result Diagram: 02/10/18 0543 02/10/18 0543 Results 24hrs Laboratory Tests Test 02/09/18 17:39 02/09/18 19:37 02/10/18 05:43 02/10/18 08:03 Bedside Glucose 147 113 133 White Blood Count 5.9 # Red Blood Count 3.75 L Hemoglobin 11.0 L Hematocrit 35.2 L Mean Corpuscular 93.9 Volume Mean Corpuscular 29.3 Hemoglobin Mean Corpuscular 31.3 L Hemoglobin Concent Red Cell 20.2 H Distribution Width Platelet Count 62 #L Mean Platelet Volume 10.0 Immature 0.300 Granulocytes % Neutrophils % 52.4 Lymphocytes % 31.0 Monocytes % 13.1 H Eosinophils % 2.7 Basophils % 0.5 Nucleated Red Blood 1.0 H Cells % Immature 0.020 Granulocytes # Neutrophils # 3.1 Lymphocytes # 1.8 Monocytes # 0.8 Eosinophils # 0.2 Basophils # 0.0 Nucleated Red Blood 0.1 H Cells # Sodium Level 142 Potassium Level 4.1 Chloride Level 97 Carbon Dioxide Level 32 H Anion Gap 13 Blood Urea Nitrogen 21 #H Creatinine 4.41 #H Est Glomerular 13 L Filtrat Rate mL/min Glucose Level 148 # Calcium Level 6.6 L Total Bilirubin 0.4 Direct Bilirubin 0.00 Indirect Bilirubin 0.4 Aspartate Amino 173 H Transf (AST/SGOT) Alanine 529 H Aminotransferase (AL T/SGPT) Alkaline Phosphatase 422 H Total Protein 6.4 Albumin 3.6 Globulin 2.80 Albumin/Globulin 1.28 Ratio Test 02/10/18 12:03 Bedside Glucose 171 Consultation Date/Type/Reason Admit Date/Time Jan 27, 2018 at 04:03 Type of Consult Neurology Requesting Provider: KISHORE HURST MD Date/Time of Note DATE: 02/10/18 TIME: 12:27 24 HR Interval Summary Free Text/Dictation Continues telemetry monitoring. Pt states that she is doing better today. Exam Vital Signs Vitals Vital Signs Date Temp Pulse Resp B/P (MAP) Pulse Ox O2 O2 Flow FiO2 Time Delivery Rate 02/10/18 76 08:57 02/10/18 99.2 16 124/73 95 Room Air 08:00 (90) 02/10/18 2.0 07:40 Intake and Output 02/09/18 02/09/18 02/10/18 1515:00 23:00 07:00 IntakeIntake Total 550 ml 1100 ml OutputOutput Total 500 ml 700 ml BalanceBalance -500 ml -150 ml 1100 ml Exam PE: Gen Appearance: No Apparent Distress HEENT: Normocephalic Cardiovascular: Regular rate Lungs: Clear bilaterally Abdomen: Soft Extremities: Dry NE: The patient was alert though somewhat disoriented. Oriented to self, place, and situation. Language was normal. Fund of knowledge was normal. Pupils were equal and reactive to light. There was no afferent pupillary defect. Visual alvarez were normal. Funduscopic examination was limited.. Extra-ocular movements were full. Ptosis was absent. There was no nystagmus. Facial sensation was normal. Face was symmetric with normal strength. Hearing was intact. Palate movements were normal. Neck strength was normal. There was normal tongue bulk and speed of movement. Tone was normal. Muscle bulk was normal. I did not see fasciculations. Arms and legs were mildly weak and symmetric. . Vibration sensation was normal. Temperature and pinprick sensation was normal. Rapid alternating movements were normal. There was no dysmetria. There was no intention tremor. Gait was deferred due to bedrest. Arm and leg reflexes were 2+ and symmetric. Merlos's sign was absent. Plantar responses were flexor. JASEN GRIFFITH NP Feb 10, 2018 12:27
--- NOTE | 2018-02-10 16:15 | NUR ---
pt to be dialyzed tomorrow, order # [id number]
[2018-02-10] MEDS: ONDANSETRON 4 MG INJ IV PRN (16:27)
[2018-02-10] MEDS: SEVELAMER CARBONATE 800 MG TABLET PO SCH (17:19)
[2018-02-10] MEDS: METOPROLOL 25 MG TAB PO SCH (17:20)
[2018-02-10] MEDS: MIRTAZAPINE 15 MG TAB PO SCH (17:20)
--- NOTE | 2018-02-10 18:33 | NUR ---
EOSS: pt resting on bed comfortably, hourly rounding done per unit's protocol, VS stable, denies pain, denies SOB. bed brakes engaged, side rails up, call light within reach, will endorse to scene shifter nurse.
[2018-02-10] MEDS: DIPHENHYDRAMINE 50 MG INJ IV PRN (21:30)
--- NOTE | 2018-02-10 22:00 | NUR ---
patient was given cheese stick for snack, patient also requested cracker; explained the importance of blood glucose control and compliance with diet; patient claimed she is still hungry and insisted on a cracker; patient was given cracker; she claimed she does not eat much the food on the tray; will request dietary consult; patient was found eating burger from outside; educated on the importance of compliance with the diet; will continue to monitor patient
[2018-02-11] VITALS (26 sets, daily range): BP systolic 106–153; BP diastolic 59–90; PULSE 76–90; RESP 18
[2018-02-11] MEDS: SOD CHLORIDE 0.9% 1,000 ML IV SCH (01:54)
[2018-02-11] MEDS: ACCU-CHEK XX SCH (02:00)
[2018-02-11] MEDS: DIPHENHYDRAMINE 50 MG INJ IV PRN ×3 (03:44→21:56)
[2018-02-11] MEDS: PANTOPRAZOLE (EC) 40 MG TAB PO SCH (06:15)
[2018-02-11] MEDS: LEVOTHYROXINE 100 MCG TAB PO SCH (06:15)
--- NOTE | 2018-02-11 06:46 | NUR ---
end of shift: patient is alert and oriented, sinus rhythm on monitor, anuric, for hemodialysis today, had difficulty falling asleep but sedatives and narcotics were discontinued; patient given IV Diphenhydramine twice for itching which somehow help with sleep; needs attended; placed patient on dietary consult; got order from Dr. Krueger to discontinue IVF and change diet to renal, carb controlled diet; will endorse to dayshift nurse
--- NOTE | 2018-02-11 07:51 | PN ---
Date/Time of Note Date/Time of Note DATE: 02/11/18 TIME: 07:47 Assessment/Plan VTE Prophylaxis Risk score (from Ns)>0 risk: 4 SCD applied (from Ns): No SCD contraindicated: low risk/ambulating Pharmacological prophylaxis: other (plavix) Lines/Catheters IV Catheter Type (from [facility]): Peripheral IV Urinary Cath still in place: No Assessment/Plan Hospital Course patient received for dialysis scheduled for second one today will transfer to telemetry when stable Assessment/Plan patient improving scheduled for dialysis today probable discharge 02/12/2018 Result Diagram: 02/10/18 0543 02/11/18 0532 Results 24hrs Laboratory Tests Test 02/10/18 08:03 02/10/18 12:03 02/10/18 17:17 02/10/18 21:37 Bedside Glucose 133 171 286 H 152 Test 02/11/18 05:32 White Blood Count Pending Red Blood Count Pending Hemoglobin Pending Hematocrit Pending Mean Corpuscular Volume Pending Mean Corpuscular Pending Hemoglobin Mean Corpuscular Pending Hemoglobin Concent Red Cell Distribution Pending Width Platelet Count Pending Mean Platelet Volume Pending Sodium Level 143 Potassium Level 4.5 Chloride Level 102 Carbon Dioxide Level 28 Anion Gap 13 Blood Urea Nitrogen 31 H Creatinine 5.83 H Glucose Level 184 Calcium Level 6.5 L Phosphorus Level 3.6 Total Bilirubin 0.3 Direct Bilirubin 0.00 Indirect Bilirubin 0.3 Aspartate Amino 115 H Transf (AST/SGOT) Alanine 415 H Aminotransferase (ALT/SG PT) Alkaline Phosphatase 430 H Total Protein 6.4 Albumin 3.9 Free Thyroxine 2.08 H Subjective 24 Hr Interval Summary Constitutional: improved, other (itchy eyes) Eyes: other (itchy eyes) ENT: no complaints Respiratory: no complaints Cardiovascular: no complaints Gastrointestinal: no complaints Genitourinary: no complaints Musculoskeletal: no complaints Skin: no complaints Neurologic: no complaints Endocrine: no complaints Lymphatic: no complaints Psychological: no complaints Immunologic: no complaints Exam/Review of Systems Vital Signs Vitals Vital Signs Date Temp Pulse Resp B/P (MAP) Pulse Ox O2 O2 Flow FiO2 Time Delivery Rate 02/11/18 79 04:00 02/11/18 98.5 18 106/68 97 04:00 (81) 02/10/18 Room Air 15:38 02/10/18 2.0 07:40 Intake and Output 02/10/18 02/10/18 02/11/18 1515:00 23:00 07:00 IntakeIntake Total 750 ml 1100 ml BalanceBalance 750 ml 1100 ml Exam Constitutional: alert, oriented, well developed Psych: no complaints Head: normocephalic Eyes: nl conjunctiva, EOMI ENMT: nl external ears & nose Neck: supple Cardiovascular: regular rate and rhythm Gastrointestinal: soft Musculoskeletal: nl extremities to inspection Medications Medications Current Medications Clopidogrel Bisulfate (plaVIX) 75 mg DAILY PO Last administered on 02/10/18 08:05; Admin Dose 75 MG; Start 01/27/18 at 21:00 Acetaminophen/ Hydrocodone Bitart ([place] (10/325)) 2 tab Q6H PRN PO MODERATE PAIN LEVEL 4-6 Last administered on 02/02/18 17:52; Admin Dose 2 TAB; Start 01/27/18 at 13:30; Status Hold Isosorbide Mononitrate (Imdur) 30 mg DAILY PO Last administered on 02/10/18 08:05; Admin Dose 30 MG; Start 01/28/18 at 21:00 Famotidine (Pepcid) 10 mg DAILY PO Last administered on 02/10/18 08:06; Admin Dose 10 MG; Start 01/27/18 at 21:00 Diagnostic Test (Pha) (Accu-Chek) 1 ea 02 XX Last administered on 02/01/18 02:00; Admin Dose 1 EA; Start 01/28/18 at 02:00 Insulin Aspart (Novolog Insulin Pen) NOVOLOG *MILD* ALGORITHM WITH MEALS BEDTIME SC Last administered on 02/10/18 17:37; Admin Dose 4 UNIT; Start 01/27/18 at 17:35 Ranolazine (Ranexa) 500 mg Q12 PO Last administered on 02/10/18 21:30; Admin Dose 500 MG; Start 01/27/18 at 21:00 Zolpidem Tartrate (Ambien) 5 mg HS MAY REPEAT X 1 PRN PO INSOMNIA Last administered on 02/09/18 00:24; Admin Dose 5 MG; Start 01/27/18 at 13:30; Status Hold Diphenhydramine HCl (Benadryl) 25 mg Q6H PRN IV ITCHING Last administered on 02/11/18 03:44; Admin Dose 25 MG; Start 01/27/18 at 14:30 Epoetin Geo (Epogen (Esrd)) 8,000 units AFTER DIALYSIS SC Last administered on 02/05/18 17:49; Admin Dose 8,000 UNITS; Start 01/28/18 at 08:00 Levothyroxine Sodium (Synthroid) 225 mcg DAILY@06 PO Last administered on 02/11/18 06:15; Admin Dose 225 MCG; Start 01/29/18 at 06:00 Aspirin (Aspirin) 81 mg DAILY PO Last administered on 02/10/18 08:06; Admin Dose 81 MG; Start 01/28/18 at 13:00 Miscellaneous Information 1 ea NOTE XX ; Start 01/28/18 at 14:00 Glucose (Glutose) 15 gm Q15M PRN PO DECREASED GLUCOSE; Start 01/28/18 at 14:00 Glucose (Glutose) 22.5 gm Q15M PRN PO DECREASED GLUCOSE; Start 01/28/18 at 14:00 Dextrose (D50w Syringe) 25 ml Q15M PRN IV DECREASED GLUCOSE; Start 01/28/18 at 14:00 Dextrose (D50w Syringe) 50 ml Q15M PRN IV DECREASED GLUCOSE; Start 01/28/18 at 14:00 Glucagon (Glucagen) 1 mg Q15M PRN IM DECREASED GLUCOSE; Start 01/28/18 at 14:00 Glucose (Glutose) 15 gm Q15M PRN BUCCAL DECREASED GLUCOSE; Start 01/28/18 at 14:00 Ondansetron HCl (Zofran Inj) 4 mg Q4H PRN IV NAUSEA AND/OR VOMITING Last administered on 02/10/18 16:27; Admin Dose 4 MG; Start 01/30/18 at 20:30 Metoclopramide HCl (Reglan) 10 mg Q6H PRN IV NAUSEA Last administered on 02/08/18at 13:24; Admin Dose 10 MG; Start 01/31/18 at 11:00 Pantoprazole (Protonix Tab) 40 mg DAILY@06 PO Last administered on 02/11/18 06:15; Admin Dose 40 MG; Start 02/01/18 at 12:00 Albumin Human 100 ml @ 100 mls/hr DURING DIALYSIS PRN IV BLOOD PRESSURE SUPPORT Last administered on 02/09/18at 11:46; Admin Dose 100 MLS/HR; Start 02/01/18 at 18:30 Haloperidol (Haldol) 2 mg Q6H PRN PO Hallucination Last administered on 02/06/18at 16:47; Admin Dose 2 MG; Start 02/03/18 at 16:00 Mirtazapine (Remeron) 7.5 mg PC DINNER PO Last administered on 02/10/18 17:20; Admin Dose 7.5 MG; Start 02/03/18 at 18:55 Acetaminophen (Tylenol Tab) 650 mg Q6H PRN PO MILD PAIN(1-3)OR ELEVATED TEMP Last administered on 02/08/18at 09:24; Admin Dose 650 MG; Start 02/08/18 at 09:00 Nystatin (Nystatin Susp) 5 ml QID PO Last administered on 02/09/18at 20:25; Admin Dose 5 ML; Start 02/08/18 at 09:00 Cinacalcet (Sensipar) 30 mg WITH BREAKFAST PO ; Start 02/09/18 at 07:55; Status Hold Tramadol HCl (Ultram) 50 mg Q8 PRN PO MODERATE PAIN LEVEL 4-6 Last administered on 02/08/18 21:08; Admin Dose 50 MG; Start 02/08/18 at 20:30 Metoprolol Tartrate (Lopressor) 25 mg AC DINNER PO Last administered on 02/10/18 17:20; Admin Dose 25 MG; Start 02/09/18 at 17:25 Sevelamer Carbonate (Renvela) 800 mg WITH MEALS PO Last administered on 02/10/18 17:19; Admin Dose 800 MG; Start 02/10/18 at 17:55 KISHORE HURST MD Feb 11, 2018 07:51
[2018-02-11] MEDS: SEVELAMER CARBONATE 800 MG TABLET PO SCH ×3 (07:55→17:38)
--- NOTE | 2018-02-11 08:46 | PN ---
DATE: 02/11/2018 SUBJECTIVE: The patient remains stable. No events overnight. No fevers, chills, nausea, vomiting. OBJECTIVE: VITAL SIGNS: Blood pressure is 106/68, respiration 18, pulse 79, temperature 98.5. HEENT: Head is normocephalic. NECK: Supple. HEART: Regular rate. LUNGS: Show diminished breath sounds at the base. ABDOMEN: Soft, nontender to palpation. No rebound or guarding. EXTREMITIES: Negative for clubbing, cyanosis, no edema. DERMATOLOGIC: No rashes. MUSCULOSKELETAL: No joint effusion. NEUROLOGIC: No change in exam. MEDICATIONS: The patient's medications have been reviewed. LABORATORY DATA: Shows sodium 143, potassium 4.5, chloride 102, BUN 31, creatinine 0.583, calcium is 6.5. The patient's CBC is pending. ASSESSMENT AND PLAN: 1. End-stage renal disease. Plan is for hemodialysis today. Will dialyze for 3 hours 3k bath, calc ium 3. 2. Hyperkalemia improved. Continue dialysis low potassium bath. 3. Anemia. Continue to monitor hemoglobin and hematocrit levels. Continue Epogen. 3. Mineral bone disorder. The patient remains hypocalcemic. 4. Sensipar subsequently been held. Will continue dialysis on a high calcium bath. Continue active vitamin D analogs. The patient's repeat PTH levels are markedly improved and is currently near goal . Will continue to monitor closely. 5. Acute encephalopathy, improving. 6. Diabetes. Continue current insulin regimen. 7. Coronary artery disease. Continue current treatment plan. Dictated By: HARVEY LUCIO DO NR/NTS Conf#: [id number] DID#: [id number] CC: KEZIA COLBERT MD;*EndCC*
[2018-02-11] MEDS: CLOPIDOGREL 75 MG TAB PO SCH (08:57)
[2018-02-11] MEDS: RANOLAZINE (SR) 500 MG TAB PO SCH ×2 (08:57→20:31)
[2018-02-11] MEDS: ONDANSETRON 4 MG INJ IV PRN (08:58)
[2018-02-11] MEDS: ASPIRIN 81 MG TAB PO SCH (08:58)
[2018-02-11] MEDS: FAMOTIDINE 20 MG TAB PO SCH (09:00)
[2018-02-11] MEDS ORDERED: CALCITRIOL 1 MCG INJ IV ONE (09:00)
[2018-02-11] MEDS: MULTIVIT/CA CARB/B CMPLX/FA TAB PO SCH (09:00)
[2018-02-11] MEDS: ISOSORBIDE MONONITRATE(SR)30 MG TAB PO SCH (09:00)
[2018-02-11] MEDS: CHOLECALCIFEROL 1,000 UNIT TAB PO SCH (09:00)
[2018-02-11] MEDS: NYSTATIN SUSP 5 ML CUP PO SCH ×4 (09:00→20:32)
[2018-02-11] MEDS: INSULIN ASPART [NOVOLOG] 3 ML PEN SC SCH ×4 (09:13→20:31)
--- NOTE | 2018-02-11 11:37 | NUR ---
NUTRITION NOTE: Consult received 2/2 pt has been reported to being noncompliant with diet, per RN. Eating foods brought from outside. Currently on a diabetic renal diet. Tolerating PO intake without n/v/d. LBM 02/10. Spoke to pt and pt's son regarding diabetic renal diet guidelines including foods that are appropriate on this diet. Encouraged diet compliance, including when bringing foods from outside. Pt seemed disinterested in education, however pt's son acknowledged understanding and accepted copies of handout. Will continue to monitor.
--- NOTE | 2018-02-11 12:18 | NUR ---
PT NOTE Therapy day number 4 Subjective Denies pain Pain Intensity 0 (0-10) Patient Stated Goal for Pain Relief 0 (0-10) Pain Level Comment denies Pre Treatment Vital Signs Stable Yes Exercise Assessment Label Bilat Lower Extremity Exercise Type Active ROM Additional Exercise Comments EOB LAQ, AP, ankle circles, STS x5, BUE scap depres, trunk control Exercise Start Time 12:18 Exercise End Time 12:30 Total Exercise Time 12 min (8-127) Supine to Sit Contact Guard Assist Transfer Sit to Stand Ability Contact Guard Assist Additional Mobility Comments left sitting at EOB with RN present, CGA Bed mobility Gait Training Start Time 12:30 Gait Assist Levels Contact Guard Assist Assistive Devices Front Wheel Walker Ambulation Distance 150 feet Additional Gait Comments reciprocal, decreased cad, flexed posture, NBOS, no LOB Gait Training End Time 12:47 Total Gait Training Treatment Time 17 min (8-127) Static Sitting Balance Fair plus Dynamic Sitting Balance Fair plus Standing Static Balance Fair Dynamic Standing Balance Fair Additional Balance Assessments Comments with FWW Safety Judgement Fair Activity Tolerance Fair Post Treatment Pain Intensity 0 0-10 Additional Post Treatment Comment See BElow Total Treament Time 29 min (8-127) Total Minutes 29 Total Units 2 PT Technical Record Comment PT NOTE S: Pt agreeable to PT, cleared for PT per RN. O: Pt received semifowler in bed, alert and appropriate. Performed transfer tr, bed mob tr, thera ex and gait tr per tech record with CGA using FWW. Attempted gait training with no AD, 20', using unilateral HR with CGA: pt with increased postural sway, continues to benefit from FWW. Pt left sitting at EOB post tx with call light and needs in reach, RN present, pt in no apparent distress A: Pt karma tx fairly, limited by fatigue, BLE weakness P: Cont POC
--- NOTE | 2018-02-11 12:23 | NUR ---
Transfer of care to [employer]- Pt VSS, AOOx4, linens changed and hygiene attended to. Pt has itchy eyes and appropriate meds ordered. Pt aware of transfer of care. Report given. All other needs met and questions answered. HD to be completed today around 1230.
--- NOTE | 2018-02-11 12:25 | CONS ---
Assessment/Plan Assessment/Plan Hospital Course A: 52 yo F with ESRD on HD and other comorbidities... who initially presented for evaluation of shortness of breath and other sx... Of note, she is reported to have missed several hemodialysis sessions prior to presentation... Neurology is consulted to evaluate altered mental status. Most clinically consistent with an acute toxic-metabolic encephalopathy Stroke is unlikely. Seizure is unlikely. Head CT is unrevealing. P: OK to defer additional neuroimaging for now Cont medical management per primary Reorient as necessary Limit sedating medications where possible PT/OT as tolerated Will follow clinically Result Diagram: 02/11/18 0532 02/11/18 0532 Results 24hrs Laboratory Tests Test 02/10/18 17:17 02/10/18 21:37 02/11/18 05:32 02/11/18 08:13 Bedside Glucose 286 H 152 176 White Blood Count 5.2 Red Blood Count 3.73 L Hemoglobin 11.2 L Hematocrit 35.5 L Mean Corpuscular Volume 95.2 Mean Corpuscular 30.0 Hemoglobin Mean Corpuscular 31.5 L Hemoglobin Concent Red Cell Distribution 20.8 H Width Platelet Count 64 L Mean Platelet Volume 10.8 H Immature Granulocytes % 0.400 Neutrophils % 51.2 Lymphocytes % 31.9 Monocytes % 12.2 H Eosinophils % 3.7 Basophils % 0.6 Nucleated Red Blood 0.0 Cells % Immature Granulocytes # 0.020 Neutrophils # 2.7 Lymphocytes # 1.7 Monocytes # 0.6 Eosinophils # 0.2 Basophils # 0.0 Nucleated Red Blood 0.0 Cells # Sodium Level 143 Potassium Level 4.5 Chloride Level 102 Carbon Dioxide Level 28 Anion Gap 13 Blood Urea Nitrogen 31 H Creatinine 5.83 H Glucose Level 184 Calcium Level 6.5 L Ionized Calcium 0.8 L (Measured) Phosphorus Level 3.6 Total Bilirubin 0.3 Direct Bilirubin 0.00 Indirect Bilirubin 0.3 Aspartate Amino 115 H Transf (AST/SGOT) Alanine 415 H Aminotransferase (ALT/SG PT) Alkaline Phosphatase 430 H Total Protein 6.4 Albumin 3.9 Thyroid Stimulating 2.660 Hormone (TSH) Free Thyroxine 2.08 H Consultation Date/Type/Reason Admit Date/Time Jan 27, 2018 at 04:03 Type of Consult Neurology Requesting Provider: KISHORE HURST MD Date/Time of Note DATE: 02/11/18 TIME: 12:24 24 HR Interval Summary Free Text/Dictation Continues telemetry monitoring. No acute events or changes in pt condition noted Exam Vital Signs Vitals Vital Signs Date Temp Pulse Resp B/P (MAP) Pulse Ox O2 O2 Flow FiO2 Time Delivery Rate 02/11/18 98.0 88 18 107/59 97 Room Air 11:13 (75) 02/10/18 2.0 07:40 Intake and Output 02/10/18 02/10/18 02/11/18 1515:00 23:00 07:00 IntakeIntake Total 750 ml 1100 ml BalanceBalance 750 ml 1100 ml Exam PE: Gen Appearance: No Apparent Distress HEENT: Normocephalic Cardiovascular: Regular rate Lungs: Clear bilaterally Abdomen: Soft Extremities: Dry NE: The patient was alert though somewhat disoriented. Oriented to self, place, and situation. Language was normal. Fund of knowledge was normal. Pupils were equal and reactive to light. There was no afferent pupillary defect. Visual alvarez were normal. Funduscopic examination was limited.. Extra-ocular movements were full. Ptosis was absent. There was no nystagmus. Facial sensation was normal. Face was symmetric with normal strength. Hearing was intact. Palate movements were normal. Neck strength was normal. There was normal tongue bulk and speed of movement. Tone was normal. Muscle bulk was normal. I did not see fasciculations. Arms and legs were mildly weak and symmetric. . Vibration sensation was normal. Temperature and pinprick sensation was normal. Rapid alternating movements were normal. There was no dysmetria. There was no intention tremor. Gait was deferred due to bedrest. Arm and leg reflexes were 2+ and symmetric. Merlos's sign was absent. Plantar responses were flexor. JASEN GRIFFITH NP Feb 11, 2018 12:24 TAMMI DELEON Feb 11, 2018 13:10
[2018-02-11] MEDS: NEOMYC/POLYMYX/DEXAMETH OPH 5 ML BOTH EYES SCH ×2 (12:52→20:31)
[2018-02-11] MEDS ORDERED: NEOMYC/POLYMYX/HC 7.5 ML OPH BOTH EYES SCH (13:00)
[2018-02-11] MEDS ORDERED: ERGOCALCIFEROL 50,000 UNIT CAP PO SCH (13:00)
--- NOTE | 2018-02-11 13:18 | CONS ---
Date/Time of Note Date/Time of Note DATE: 02/11/18 TIME: 13:17 Assessment/Plan Assessment/Plan Assessment/Plan End-stage renal disease on hemodialysis CAD with history of PCI History of hypertension Diabetes Dyslipidemia Encephalopathy -Continue beta-mariaelena and isosorbide as tolerated. Continue antiplatelet therapy if no contraindication. Fluid management via hemodialysis as per nephrology. DC planning Result Diagram: 02/11/18 0532 02/11/18 0532 Results 24hrs Laboratory Tests Test 02/10/18 17:17 02/10/18 21:37 02/11/18 05:32 02/11/18 08:13 Bedside Glucose 286 H 152 176 White Blood Count 5.2 Red Blood Count 3.73 L Hemoglobin 11.2 L Hematocrit 35.5 L Mean Corpuscular Volume 95.2 Mean Corpuscular 30.0 Hemoglobin Mean Corpuscular 31.5 L Hemoglobin Concent Red Cell Distribution 20.8 H Width Platelet Count 64 L Mean Platelet Volume 10.8 H Immature Granulocytes % 0.400 Neutrophils % 51.2 Lymphocytes % 31.9 Monocytes % 12.2 H Eosinophils % 3.7 Basophils % 0.6 Nucleated Red Blood 0.0 Cells % Immature Granulocytes # 0.020 Neutrophils # 2.7 Lymphocytes # 1.7 Monocytes # 0.6 Eosinophils # 0.2 Basophils # 0.0 Nucleated Red Blood 0.0 Cells # Sodium Level 143 Potassium Level 4.5 Chloride Level 102 Carbon Dioxide Level 28 Anion Gap 13 Blood Urea Nitrogen 31 H Creatinine 5.83 H Glucose Level 184 Calcium Level 6.5 L Ionized Calcium 0.8 L (Measured) Phosphorus Level 3.6 Total Bilirubin 0.3 Direct Bilirubin 0.00 Indirect Bilirubin 0.3 Aspartate Amino 115 H Transf (AST/SGOT) Alanine 415 H Aminotransferase (ALT/SG PT) Alkaline Phosphatase 430 H Total Protein 6.4 Albumin 3.9 Thyroid Stimulating 2.660 Hormone (TSH) Free Thyroxine 2.08 H Test 02/11/18 12:51 Bedside Glucose 179 Consultation Date/Type/Reason Admit Date/Time Jan 27, 2018 at 04:03 Initial Consult Date Type of Consult cv Requesting Provider: KISHORE HURST MD 24 HR Interval Summary Free Text/Dictation Denies chest pain, shortness of breath or palpitations Exam/Review of Systems Vital Signs Vitals Vital Signs Date Temp Pulse Resp B/P (MAP) Pulse Ox O2 O2 Flow FiO2 Time Delivery Rate 02/11/18 88 12:24 02/11/18 98.0 18 107/59 97 Room Air 11:13 (75) 02/10/18 2.0 07:40 Intake and Output 02/10/18 02/10/18 02/11/18 1515:00 23:00 07:00 IntakeIntake Total 750 ml 1100 ml BalanceBalance 750 ml 1100 ml Exam No apparent distress, sitting in chair Constitutional: alert, oriented Head: normocephalic Respiratory: other (Coarse breath sounds bilaterally, no wheezing) Cardiovascular: regular rate and rhythm, other (S1-S2 heard) Gastrointestinal: soft, non-tender, bowel sounds Extremities: edema (Trace) Medications Medications Current Medications Clopidogrel Bisulfate (plaVIX) 75 mg DAILY PO Last administered on 02/11/18 08:57; Admin Dose 75 MG; Start 01/27/18 at 21:00 Acetaminophen/ Hydrocodone Bitart ([place] (10/325)) 2 tab Q6H PRN PO MODERATE PAIN LEVEL 4-6 Last administered on 02/02/18 17:52; Admin Dose 2 TAB; Start 01/27/18 at 13:30; Status Hold Isosorbide Mononitrate (Imdur) 30 mg DAILY PO Last administered on 02/10/18 08:05; Admin Dose 30 MG; Start 01/28/18 at 21:00 Famotidine (Pepcid) 10 mg DAILY PO Last administered on 02/10/18 08:06; Admin Dose 10 MG; Start 01/27/18 at 21:00 Diagnostic Test (Pha) (Accu-Chek) 1 ea 02 XX Last administered on 02/01/18at 02:00; Admin Dose 1 EA; Start 01/28/18 at 02:00 Insulin Aspart (Novolog Insulin Pen) NOVOLOG *MILD* ALGORITHM WITH MEALS BEDTIME SC Last administered on 02/11/18 13:01; Admin Dose 1 UNIT; Start 01/27/18 at 17:35 Ranolazine (Ranexa) 500 mg Q12 PO Last administered on 02/11/18 08:57; Admin Dose 500 MG; Start 01/27/18 at 21:00 Zolpidem Tartrate (Ambien) 5 mg HS MAY REPEAT X 1 PRN PO INSOMNIA Last administered on 02/09/18 00:24; Admin Dose 5 MG; Start 01/27/18 at 13:30; Status Hold Diphenhydramine HCl (Benadryl) 25 mg Q6H PRN IV ITCHING Last administered on 02/11/18 11:04; Admin Dose 25 MG; Start 01/27/18 at 14:30 Epoetin Geo (Epogen (Esrd)) 8,000 units AFTER DIALYSIS SC Last administered on 02/05/18at 17:49; Admin Dose 8,000 UNITS; Start 01/28/18 at 08:00; Status Hold Levothyroxine Sodium (Synthroid) 225 mcg DAILY@06 PO Last administered on 02/11/18 06:15; Admin Dose 225 MCG; Start 01/29/18 at 06:00 Aspirin (Aspirin) 81 mg DAILY PO Last administered on 02/11/18 08:58; Admin Dose 81 MG; Start 01/28/18 at 13:00 Miscellaneous Information 1 ea NOTE XX ; Start 01/28/18 at 14:00 Glucose (Glutose) 15 gm Q15M PRN PO DECREASED GLUCOSE; Start 01/28/18 at 14:00 Glucose (Glutose) 22.5 gm Q15M PRN PO DECREASED GLUCOSE; Start 01/28/18 at 14:00 Dextrose (D50w Syringe) 25 ml Q15M PRN IV DECREASED GLUCOSE; Start 01/28/18 at 14:00 Dextrose (D50w Syringe) 50 ml Q15M PRN IV DECREASED GLUCOSE; Start 01/28/18 at 14:00 Glucagon (Glucagen) 1 mg Q15M PRN IM DECREASED GLUCOSE; Start 01/28/18 at 14:00 Glucose (Glutose) 15 gm Q15M PRN BUCCAL DECREASED GLUCOSE; Start 01/28/18 at 14:00 Ondansetron HCl (Zofran Inj) 4 mg Q4H PRN IV NAUSEA AND/OR VOMITING Last administered on 02/11/18 08:58; Admin Dose 4 MG; Start 01/30/18 at 20:30 Metoclopramide HCl (Reglan) 10 mg Q6H PRN IV NAUSEA Last administered on 02/08/18 13:24; Admin Dose 10 MG; Start 01/31/18 at 11:00 Pantoprazole (Protonix Tab) 40 mg DAILY@06 PO Last administered on 02/11/18 06:15; Admin Dose 40 MG; Start 02/01/18 at 12:00 Albumin Human 100 ml @ 100 mls/hr DURING DIALYSIS PRN IV BLOOD PRESSURE SUPPORT Last administered on 02/09/18 11:46; Admin Dose 100 MLS/HR; Start 02/01/18 at 18:30 Haloperidol (Haldol) 2 mg Q6H PRN PO Hallucination Last administered on 02/06/18 16:47; Admin Dose 2 MG; Start 02/03/18 at 16:00 Mirtazapine (Remeron) 7.5 mg PC DINNER PO Last administered on 02/10/18 17:20; Admin Dose 7.5 MG; Start 02/03/18 at 18:55 Acetaminophen (Tylenol Tab) 650 mg Q6H PRN PO MILD PAIN(1-3)OR ELEVATED TEMP L ast administered on 02/08/18 09:24; Admin Dose 650 MG; Start 02/08/18 at 09:00 Nystatin (Nystatin Susp) 5 ml QID PO Last administered on 02/09/18 20:25; Admin Dose 5 ML; Start 02/08/18 at 09:00 Tramadol HCl (Ultram) 50 mg Q8 PRN PO MODERATE PAIN LEVEL 4-6 Last administered on 02/08/18 21:08; Admin Dose 50 MG; Start 02/08/18 at 20:30 Metoprolol Tartrate (Lopressor) 25 mg AC DINNER PO Last administered on 02/10/18 17:20; Admin Dose 25 MG; Start 02/09/18 at 17:25 Sevelamer Carbonate (Renvela) 800 mg WITH MEALS PO Last administered on 02/11/18 12:52; Admin Dose 800 MG; Start 02/10/18 at 17:55 Multivit/Ca Carb/ B Cmplx/FA/Prenat ([place]-Rodolfo) 1 tab DAILY PO ; Start 02/11/18 at 09:00 Cholecalciferol (Vitamin D) 1,000 unit DAILY PO ; Start 02/11/18 at 09:00 Neomycin/ Polymyxin/ Dexamethasone (Maxitrol Oph Susp) 2 drop TID BOTH EYES Last administered on 02/11/18 12:52; Admin Dose 2 DROP; Start 02/11/18 at 13:00 Ergocalciferol (Drisdol) 100,000 unit ONCE PO Last administered on 02/11/18at 12:52; Admin Dose 100,000 UNIT; Start 02/11/18 at 13:00; Stop 02/11/18 at 18:00 Heri Schaefer DO Feb 11, 2018 13:18
--- NOTE | 2018-02-11 17:30 | NUR ---
Pt completed hemodialyis well. Total uf removal 1200 ml. Endorsed to Gaby Crawley Rn.
[2018-02-11] MEDS: METOPROLOL 25 MG TAB PO SCH (17:38)
[2018-02-11] MEDS: MIRTAZAPINE 15 MG TAB PO SCH (18:10)
--- NOTE | 2018-02-11 18:14 | NUR ---
END OF SHIFT SUMMARY Patient awake and alert, and able to follow commands. Patient afebrile. Rhythm as charted. Room air. Renal diet. No new development of wounds. Patient self-repositions. Ambulated with PT. Comfort and safety measures/ fall precautions in place. Dialysis performed without complications -- 1.2L out. Plan for possible discharge tomorrow. Patient updated on status, and plan of care. All of patient's needs met, and no acute distress/events. Will continue to monitor, and endorse care to director medical science RN.
[2018-02-12] VITALS (8 sets, daily range): BP systolic 132–139; BP diastolic 71–80; PULSE 79–86; RESP 18–19
[2018-02-12] MEDS: ACCU-CHEK XX SCH (01:30)
[2018-02-12] MEDS ORDERED: LEVOTHYROXINE 100 MCG TAB PO SCH (03:53)
[2018-02-12] MEDS ORDERED: LEVOTHYROXINE 125 MCG TAB PO SCH (06:00)
--- NOTE | 2018-02-12 06:18 | NUR ---
patient is alert and oriented, sinus rhythm on monitor, complained of itching on the forehead and eyes, given eyedrops and Benadryl, needs attended; for discharge planning today; will endorse to dayshift nurse
[2018-02-12] MEDS: PANTOPRAZOLE (EC) 40 MG TAB PO SCH (06:41)
--- NOTE | 2018-02-12 07:59 | PDOCDIS ---
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WORK RE[employer] May return to School/Work on: Feb 12, 2018 May return to School/Work with: n/a KISHORE HURST MD Feb 12, 2018 07:57
--- NOTE | 2018-02-12 08:12 | DS ---
Date/Time of Note Date/Time of Note DATE: 02/12/18 TIME: 08:05 Discharge Summary Admission/Discharge Info Admit Date/Time Jan 27, 2018 at 04:03 Discharge Date/Time 02/12/2018 Discharge Diagnosis 1) hyperkalemia ,renal failure improved with dialysis 2) metabolic encephalopathy resolved 3)D.M type 2 under control 4) Papillary thyroid cancer and 2nd hypothyroidism stable 5)hypertension 6) hyperlipidemia 7)2nd hyperparathyroidism 8)lumbar disc disease stable 9) coronary artery disease Consults nephrology ,neurology ,cardiology Procedures dialysis Hx of Present Illness patient discontinued dialysis and medications for almost two weeks found to be profoundly hyperkalemic and severy chf and fluiod overload Hospital Course patient received for dialysis scheduled for second one today will transfer to telemetry when stable.patient renal function and electrolytes gradually improved however metabolic encephalopathy took 7-10 days longer to improve.patient now fully oriented and back to baseline Home Meds Active Scripts Albuterol Sulfate* (Proair HFA*) 8.5 Gm Hfa.aer.ad, 2 PUFF INH Q6H PRN for WHEEZING AND SOB, #1 INHALER Prov:MARCELLE LAU MD 11/20/16 Reported Medications Temazepam* (Temazepam*) 30 Mg Capsule, 30 MG PO HS PRN for INSOMNIA, CAP 01/27/18 Ranolazine* (Ranexa*) 500 Mg Tab.sr.12h, 500 MG PO Q12, TAB 01/27/18 Hydrocodone/Acetaminophen ([place] 10-325 Tablet) 1 Each Tablet, 1 EACH PO, TAB 08/14/17 Loperamide Hcl* (Loperamide Hcl*) 1 Mg/5 Ml Liquid, 2 MG PO PRN for DIARRHEA, ML MAX 16 mg/day 08/14/17 Biotin (Biotin) 5 Mg Tablet, 5 MG PO, TAB 08/14/17 Biotin (BIOTIN) 1 Mg Capsule, 1 MG PO, CAP 08/14/17 Amlodipine Besylate* (Norvasc*) 5 Mg Tablet, 5 MG PO DAILY, TAB 11/20/16 Atorvastatin Calcium* (Atorvastatin Calcium*) 20 Mg Tablet, 20 MG PO QHS, #30 TAB 11/20/16 Isosorbide Mononitrate* (Isosorbide Mononitrate*) 30 Mg Tab.er.24h, 30 MG PO DAILY, TAB 11/20/16 Clopidogrel Bisulfate (Clopidogrel) 75 Mg Tablet, 75 MG PO DAILY, #30 TAB 11/20/16 Levothyroxine Sodium* (Levothyroxine Sodium*) 200 Mcg Tablet, 200 MCG PO BEFORE BREAKFAST, #30 TAB 11/20/16 Metoprolol Tartrate* (Lopressor*) 25 Mg Tablet, 25 MG PO BID, #60 TAB 09/26/15 Follow-up Plan office visit 02/16/2018 make sure to keep dialysis appointments take usual medications Primary Care Provider Tae Stephens MD Time spent on discharge: < 30 minutes Pending Labs Laboratory Tests Test 02/11/18 08:13 02/11/18 12:51 02/11/18 17:38 02/11/18 20:30 Bedside 176 179 126 122 Glucose mg/dL (70-220) mg/dL (70-220) mg/dL (70-220) mg/dL (70-220) Test 02/12/18 05:46 White Blood 5.0 Count 10^3/ul (4.8-10 .8) Red Blood 3.57 Count 10^6/ul (4.20-5 .40) Hemoglobin 10.8 g/dl (12.0-16.0 ) Hematocrit 34.1 % (37.0-47.0) Mean 95.5 Corpuscular fl (82.0-101.0) Volume Mean 30.3 Corpuscular pg (29.0-33.0) Hemoglobin Mean 31.7 Corpuscular g/dl (32.0-37.0 Hemoglobin Conc ) ent Red Cell 20.3 Distribution % (11.5-14.5) Width Platelet Count 58 10^3/UL (140-41 5) Mean Platelet 10.1 Volume fl (7.4-10.4) Immature 0.200 Granulocytes % % (0.001-0.429) Neutrophils % 56.6 % (39.0-77.0) Lymphocytes % 25.1 % (15.0-51.0) Monocytes % 14.5 % (0.0-11.0) Eosinophils % 3.0 % (0.0-7.0) Basophils % 0.6 % (0.0-2.0) Nucleated Red 0.0 Blood Cells % /100WBC (0.0-0. 0) Immature 0.010 Granulocytes # 10^3/ul (0.0-0. 031) Neutrophils # 2.8 10^3/ul (1.6-7. 5) Lymphocytes # 1.3 10^3/ul (0.8-2. 9) Monocytes # 0.7 10^3/ul (0.3-0. 9) Eosinophils # 0.2 10^3/ul (0.0-0. 5) Basophils # 0.0 10^3/ul (0.0-0. 1) Nucleated Red 0.0 Blood Cells # 10^3/ul (0.0-0. 0) Sodium Level 143 mmol/L (135-144 ) Potassium 4.3 Level mmol/L (3.5-5.1 ) Chloride Level 100 mmol/L (97-110) Carbon Dioxide 29 Level mmol/L (21-31) Anion Gap 14 (5-13) Blood Urea 24 mg/dl (7-20) Nitrogen Creatinine 4.54 mg/dl (0.44-1.0 0) Est Glomerular 12 mL/min (>60) Filtrat Rate mL/min Glucose Level 197 mg/dl (70-220) Calcium Level 7.5 mg/dl (8.4-10.2 ) TAE STEPHENS MD Feb 12, 2018 08:12
[2018-02-12] MEDS: SEVELAMER CARBONATE 800 MG TABLET PO SCH ×2 (08:18→11:50)
[2018-02-12] MEDS: NEOMYC/POLYMYX/DEXAMETH OPH 5 ML BOTH EYES SCH ×2 (08:18→13:16)
[2018-02-12] MEDS: RANOLAZINE (SR) 500 MG TAB PO SCH (08:18)
[2018-02-12] MEDS: ASPIRIN 81 MG TAB PO SCH (08:19)
[2018-02-12] MEDS: FAMOTIDINE 20 MG TAB PO SCH (08:19)
[2018-02-12] MEDS: ISOSORBIDE MONONITRATE(SR)30 MG TAB PO SCH (08:19)
[2018-02-12] MEDS: CHOLECALCIFEROL 1,000 UNIT TAB PO SCH (08:19)
[2018-02-12] MEDS: MULTIVIT/CA CARB/B CMPLX/FA TAB PO SCH (08:19)
[2018-02-12] MEDS: CLOPIDOGREL 75 MG TAB PO SCH (08:19)
--- NOTE | 2018-02-12 08:58 | PN ---
DATE: 02/12/2018 SUBJECTIVE: The patient is stable, no events overnight. no fever, chills, nausea, vomiting. OBJECTIVE: VITAL SIGNS: Blood pressure is 136/80, pulse 81, respiration 18, temperature 97.6. HEENT: Head is normocephalic. NECK: Supple. HEART: Regular rate. LUNGS: Show diminished breath sounds at the base. ABDOMEN: Soft, nontender to palpation without rebound or guarding. EXTREMITIES: Negative for clubbing, cyanosis, no edema. DERMATOLOGIC: No rashes. MUSCULOSKELETAL: No joint effusion. NEUROLOGIC: No change in exam. MEDICATIONS: Reviewed. LABORATORY DATA: The laboratory data from 02/12/2018 was reviewed. The patient's BUN is 24, creatin ine 4.54. White count 5.0, hemoglobin 10.8, platelet count is 58. ASSESSMENT AND PLAN: 1. End-stage renal disease. The patient had hemodialysis yesterday, tolerated well. Plan for dialy sis again tomorrow. 2. Hyperkalemia, resolved. Continue dialysis low potassium bath. 3. Anemia. Monitor hemoglobin and hematocrit levels. Continue Epogen. 4. Mineral bone disorder, monitor calcium and phosphatase levels. The patient remains hypocalcemic. Sensipar has been held. Continue dialysis on a high calcium bath. Continue vitamin D analogs, repe at PTH levels have been reviewed. Monitor closely. 5. Acute encephalopathy, improving. 6. Diabetes. Continue current insulin regimen. 7. Coronary artery disease. Continue medical management. Dictated By: HARVEY LUCIO DO NR/NTS Conf#: [id number] DID#: [id number] CC: KEZIA COLBERT MD; KISHORE HURST MD;*EndCC*
[2018-02-12] MEDS: NYSTATIN SUSP 5 ML CUP PO SCH ×2 (09:00→13:00)
[2018-02-12] MEDS: DIPHENHYDRAMINE 50 MG INJ IV PRN (09:28)
[2018-02-12] MEDS: INSULIN ASPART [NOVOLOG] 3 ML PEN SC SCH ×2 (10:02→11:50)
[2018-02-12] MEDS: ONDANSETRON 4 MG INJ IV PRN (10:53)
--- NOTE | 2018-02-12 13:10 | NUR ---
PT Note Therapy day number 5 Subjective Denies pain Pain Scale NUMERIC Pain Intensity 0 (0-10) Patient Stated Goal for Pain Relief 0 (0-10) Pain Level Comment No pain Pre Treatment Vital Signs Stable Yes Supine to Sit Modified Independent Transfer Sit to Stand Ability Modified Independent Bed Mobility Sit to Supine Modified Independent Bed Transfer Ability Modified Independent Chair Transfer Ability Modified Independent Patient uses wheelchair Not Applicable Gait Training Start Time 13:10 Gait Assist Levels Supervised Assistive Devices None Ambulation Distance 150 feet Additional Gait Comments reciprocal gait, reduced delphine, flexed posture Gait Training End Time 13:25 Total Gait Training Treatment Time 15 min (8-127) Stair Training Start Time 13:25 Stair Climbing Ability Contact Guard Assist Number of Stairs 2 Stairs Additional Stairs Assist Comments BUE support R rail, minor LOB 1st attempt, no LOB 2nd attempt Stair Training End Time 13:33 Total Stair Training Time 8 min (8-127) Static Sitting Balance Good Dynamic Sitting Balance Good Standing Static Balance Fair plus Dynamic Standing Balance Fair plus Additional Balance Assessments Comments with no AD Post Treatment Pain Intensity 0 0-10 Total Treament Time 23 min (8-127) Total Minutes 23 Total Units 2 PT Technical Record Comment S: Pt found supine in bed with son at bedside, agreeable to PT. RN cleared for activity. Pt reports anxiety about going home and states that she is not back to baseline. O: Pt seen for bed mobility, gait training, stair training. Supervised for gait, no LOB. Pt required standing rest break after 75 feet and was able to complete 150' supervised with no AD. Stair training: BUE support on R rail CGA. Minor LOB with Nancy to recover on 1st attempt, no LOB on 2nd attempt. No reports of pain, dizziness, SOB during treatment. Pt assisted back to EOB at end of treatment, call light nearby, son nearby to assist. RN was informed of pt response to activity. A: Pt is limited primarily by fatigue during ambulation, however demonstrates good strength, balance, control during activity. Pt required more assistance during stair training. Pt has not achieved baseline, still demonstrating reduced endurance and strength during mobility, however is safe to return home with family assist when cleared by MD. P: Pt would benefit from HHPT when medically cleared by MD. No DME recommended at this time.
--- NOTE | 2018-02-12 14:17 | NUR ---
Discharge disposition: Pt VSS, AOOx4, ambulatory with stand by assist, cleared by PT to safety be discharged home with family assistance. Pt has no complaints of pain, SOB, s/s of distress. Pt still has itchy eyes but will follow up with PCP and [facility] out[facility]. All discharge instructions reviewed at bedside with RN, no new prescriptions given to pt at time of discharge. Pt and family verbalized understanding and stated they had no further questions at this time. director of academic support, IV, ID wristbands d/c'ed. All belongings accounted for. Pt escorted off unit via wheelchair with volunteer.
--- NOTE | 2018-02-12 14:32 | CONS ---
Assessment/Plan Assessment/Plan Hospital Course A: 52 yo F with ESRD on HD and other comorbidities... who initially presented for evaluation of shortness of breath and other sx... Of note, she is reported to have missed several hemodialysis sessions prior to presentation... Neurology is consulted to evaluate altered mental status. Most clinically consistent with an acute toxic-metabolic encephalopathy Stroke is unlikely. Seizure is unlikely. Head CT is unrevealing. P: OK to defer additional neuroimaging for now Cont medical management per primary Reorient as necessary Limit sedating medications where possible PT/OT as tolerated Will follow clinically Result Diagram: 02/12/18 0546 02/12/18 0546 Results 24hrs Laboratory Tests Test 02/11/18 17:38 02/11/18 20:30 02/12/18 05:46 02/12/18 08:05 Bedside Glucose 126 122 158 White Blood Count 5.0 Red Blood Count 3.57 L Hemoglobin 10.8 L Hematocrit 34.1 L Mean Corpuscular Volume 95.5 Mean Corpuscular 30.3 Hemoglobin Mean Corpuscular 31.7 L Hemoglobin Concent Red Cell Distribution 20.3 H Width Platelet Count 58 L Mean Platelet Volume 10.1 Immature Granulocytes % 0.200 Neutrophils % 56.6 Lymphocytes % 25.1 Monocytes % 14.5 H Eosinophils % 3.0 Basophils % 0.6 Nucleated Red Blood 0.0 Cells % Immature Granulocytes # 0.010 Neutrophils # 2.8 Lymphocytes # 1.3 Monocytes # 0.7 Eosinophils # 0.2 Basophils # 0.0 Nucleated Red Blood 0.0 Cells # Sodium Level 143 Potassium Level 4.3 Chloride Level 100 Carbon Dioxide Level 29 Anion Gap 14 H Blood Urea Nitrogen 24 H Creatinine 4.54 #H Est Glomerular Filtrat 12 L Rate mL/min Glucose Level 197 Calcium Level 7.5 L Test 02/12/18 12:24 Bedside Glucose 163 Consultation Date/Type/Reason Admit Date/Time Jan 27, 2018 at 04:03 Type of Consult Neurology Requesting Provider: KISHORE HURST MD Date/Time of Note DATE: 02/12/18 TIME: 14:02 24 HR Interval Summary Free Text/Dictation Continues telemetry monitoring. Pt states that she is doing better today. Is awaiting discharge. Exam Vital Signs Vitals Vital Signs Date Temp Pulse Resp B/P (MAP) Pulse Ox O2 O2 Flow FiO2 Time Delivery Rate 02/12/18 82 12:00 02/12/18 97.5 19 132/72 97 11:59 (92) 02/11/18 Room Air 17:12 02/10/18 2.0 07:40 Intake and Output 02/11/18 02/11/18 02/12/18 1515:00 23:00 07:00 IntakeIntake Total 680 ml OutputOutput Total 200 ml 200 ml BalanceBalance -200 ml 480 ml Exam PE: Gen Appearance: No Apparent Distress HEENT: Normocephalic Cardiovascular: Regular rate Lungs: Clear bilaterally Abdomen: Soft Extremities: Dry NE: The patient was alert though somewhat disoriented. Oriented to self, place, and situation. Language was normal. Fund of knowledge was normal. Pupils were equal and reactive to light. There was no afferent pupillary defect. Visual alvarez were normal. Funduscopic examination was limited.. Extra-ocular movements were full. Ptosis was absent. There was no nystagmus. Facial sensation was normal. Face was symmetric with normal strength. Hearing was intact. Palate movements were normal. Neck strength was normal. There was normal tongue bulk and speed of movement. Tone was normal. Muscle bulk was normal. I did not see fasciculations. Arms and legs were mildly weak and symmetric. . Vibration sensation was normal. Temperature and pinprick sensation was normal. Rapid alternating movements were normal. There was no dysmetria. There was no intention tremor. Gait was deferred due to bedrest. Arm and leg reflexes were 2+ and symmetric. Merlos's sign was absent. Plantar responses were flexor. JASEN GRIFFITH NP Feb 12, 2018 14:32
== END 2018-02-12 14:10 | disposition home or self-care (01) | DRG 640 ==
LOC: E/R 21:56 → ICU 01-27 04:03 → TEL 01-29 14:28
PROVIDERS: ADMIT Internal Medicine; ATTEND Internal Medicine
PROC: 5A1D70Z Performance of Urinary Filtration, Intermittent, Less than 6 Hours Per Day (ICD-10-PCS; principal; 2018-01-27)
DX: E87.5 Hyperkalemia (principal); N18.6 End stage renal disease; G92 Toxic encephalopathy; I13.11 Hypertensive heart and chronic kidney disease without heart failure, with stage 5 chronic kidney disease, or end stage renal disease; F32.2 Major depressive disorder, single episode, severe without psychotic features; N25.81 Secondary hyperparathyroidism of renal origin; I50.42 Chronic combined systolic (congestive) and diastolic (congestive) heart failure; E87.70 Fluid overload, unspecified; E87.2 Acidosis; E83.51 Hypocalcemia; E11.22 Type 2 diabetes mellitus with diabetic chronic kidney disease; I25.10 Atherosclerotic heart disease of native coronary artery without angina pectoris; E78.5 Hyperlipidemia, unspecified; D63.1 Anemia in chronic kidney disease; K21.9 Gastro-esophageal reflux disease without esophagitis; M19.90 Unspecified osteoarthritis, unspecified site; M51.9 Unspecified thoracic, thoracolumbar and lumbosacral intervertebral disc disorder; Z91.15 Patient's noncompliance with renal dialysis; Z99.2 Dependence on renal dialysis; Z85.850 Personal history of malignant neoplasm of thyroid
CPT/HCPCS: 36415; 70450; 71045; 76700; 80048; 80053; 80069; 80076; 82306; 82310; 82330; 82550; 82553; 82652; 82962; 83735; 83880; 83970; 84100; 84439; 84443; 84484; 85025; 86704; 86706; 86708; 86709; 86803; 87340; 90686; 90935; 93005; 96374; 96375; 97110; 97116; 97162; 97530; J1200; J1630; J1815; J2270; J2405; J2765; J7030; J7040; P9047; Q4081

== ENCOUNTER 2018-02-22 19:17 | Inpatient (IN) | payer MEDICARE, OTHER ==
[~2018-02-22] VITALS: Ht 170.2 cm; Wt 73.0 kg
[~2018-02-22 19:17] MED LIST changes: -CINA60TA PO; +RANO500T2 PO; +TEMA30CA PO
--- NOTE | 2018-02-22 20:40 | ERD ---
ER Documentation Chief Complaint Chief Complaint chest pain/sob since this am HPI 52-year-old woman complaining of substernal chest pain or shortness of breath beginning this morning. She has had similar episodes in the past and has a history of coronary artery disease and PTCA with stent placement. Her last dialysis was about a week ago and she is doing 2 days, she missed Friday's session. She states she used low-dose aspirin this morning as well. She denies fevers or chills, no cough, no headache or blurry vision, no vomiting or diarrhea ROS All systems reviewed and are negative except as per history of present illness. Medications Home Meds Active Scripts Albuterol Sulfate* (Proair HFA*) 8.5 Gm Hfa.aer.ad, 2 PUFF INH Q6H PRN for WHEEZING AND SOB, #1 INHALER Prov:MARCELLE LAU MD 11/20/16 Reported Medications Temazepam* (Temazepam*) 30 Mg Capsule, 30 MG PO HS PRN for INSOMNIA, CAP 01/27/18 Ranolazine* (Ranexa*) 500 Mg Tab.sr.12h, 500 MG PO Q12, TAB 01/27/18 Hydrocodone/Acetaminophen ([place] 10-325 Tablet) 1 Each Tablet, 1 EACH PO, TAB 08/14/17 Loperamide Hcl* (Loperamide Hcl*) 1 Mg/5 Ml Liquid, 2 MG PO PRN for DIARRHEA, ML MAX 16 mg/day 08/14/17 Biotin (Biotin) 5 Mg Tablet, 5 MG PO, TAB 08/14/17 Biotin (BIOTIN) 1 Mg Capsule, 1 MG PO, CAP 08/14/17 Amlodipine Besylate* (Norvasc*) 5 Mg Tablet, 5 MG PO DAILY, TAB 11/20/16 Atorvastatin Calcium* (Atorvastatin Calcium*) 20 Mg Tablet, 20 MG PO QHS, #30 TAB 11/20/16 Isosorbide Mononitrate* (Isosorbide Mononitrate*) 30 Mg Tab.er.24h, 30 MG PO DAILY, TAB 11/20/16 Clopidogrel Bisulfate (Clopidogrel) 75 Mg Tablet, 75 MG PO DAILY, #30 TAB 11/20/16 Levothyroxine Sodium* (Levothyroxine Sodium*) 200 Mcg Tablet, 200 MCG PO BEFORE BREAKFAST, #30 TAB 10/11/17 Metoprolol Tartrate* (Lopressor*) 25 Mg Tablet, 25 MG PO BID, #60 TAB 09/26/15 Allergies Allergies: Coded Allergies: No Known Drug Allergies (Verified Allergy, Unknown, 02/03/18) PMhx/Soc Hypertension, diabetes mellitus, CHF, history of papillary thyroid cancer status post thyroidectomy, hyperlipidemia, end-stage kidney disease hemodialyzed on Friday, , Saturdays, lumbago, CAD with PTCA in the past and stent place ment History of Surgery: Yes (FISTULA, C SECTION) Anesthesia Reaction: No Hx Neurological Disorder: No Hx Respiratory Disorders: No Hx Cardiac Disorders: Yes (HTN, HYPERLIPIDEMIA ) Hx Psychiatric Problems: No Hx Miscellaneous Medical Probl: Yes (HYPOTHYROID ) Hx Alcohol Use: No Hx Substance Use: No Hx Tobacco Use: No Smoking Status: Never smoker FmHx Family History: No diabetes Physical Exam Vitals Vital Signs Date Temp Pulse Resp B/P (MAP) Pulse Ox O2 O2 Flow FiO2 Time Delivery Rate 02/22/18 97.4 103 22 166/103 99 Room Air 20:18 (124) 02/22/18 97.5 112 20 182/101 97 19:20 (128) Physical Exam GENERAL: Well-developed, well-nourished, well-hydrated, in no apparent distress, looks nontoxic in appearance HEENT: Moist mucous membranes, pink conjunctiva, no cervical spine tenderness or step-off deformities, no goiter, no jaundice or icterus, extraocular movements intact without pain. No submandibular induration, and no pharyngeal erythema NEURO: Alert and oriented 3, cranial nerves II through XII intact bilaterally, pupils equal round reactive to light, no focal deficits or facial asymmetry, sensation intact distally Strength 5/5 in upper and lower extremities bilaterally CARDIAC: Tachycardic and regular LUNGS: Poor breath sounds bilaterally, crackles at the bases ABDOMEN: Soft nontender, no guarding, no rigidity, no rebound, no psoas sign no obturator sign. Normoactive bowel sounds SKIN: Warm and dry to touch, no abrasions, contusions, or hematomas, no lacerations, no ecchymosis, no target lesions, and without ulcers EXTREMITIES: No clubbing cyanosis, 1+ pitting edema in the lower extremities bilaterally, calves are bilaterally symmetrical, no Homans sign, no popliteal cord sign. Distal pulses equal and bilateral PSYCH: Normal affect without agitation or irritability Result Diagram: 02/22/18204902/22/182049 Results 24 hrs Laboratory Tests Test 02/22/18 20:50 White Blood Count 4.4 10^3/ul Red Blood Count 3.59 10^6/ul Hemoglobin 10.1 g/dl Hematocrit 33.6 % Mean Corpuscular Volume 93.6 fl Mean Corpuscular Hemoglobin 28.1 pg Mean Corpuscular Hemoglobin Concent 30.1 g/dl Red Cell Distribution Width 19.2 % Platelet Count 173 10^3/UL Mean Platelet Volume 11.9 fl Immature Granulocytes % 0.200 % Neutrophils % 55.0 % Lymphocytes % 34.0 % Monocytes % 7.8 % Eosinophils % 2.1 % Basophils % 0.9 % Nucleated Red Blood Cells % 0.0 /100WBC Immature Granulocytes # 0.010 10^3/ul Neutrophils # 2.4 10^3/ul Lymphocytes # 1.5 10^3/ul Monocytes # 0.3 10^3/ul Eosinophils # 0.1 10^3/ul Basophils # 0.0 10^3/ul Nucleated Red Blood Cells # 0.0 10^3/ul Prothrombin Time 16.1 Sec Prothrombin Time Ratio 1.3 INR International Normalized Ratio 1.28 Activated Partial Thromboplast Time 30.9 Sec Sodium Level 142 mmol/L Potassium Level 6.5 mmol/L Chloride Level 96 mmol/L Carbon Dioxide Level 24 mmol/L Anion Gap 22 Blood Urea Nitrogen 71 mg/dl Creatinine 10.18 mg/dl Est Glomerular Filtrat Rate mL/min 5 mL/min Glucose Level 187 mg/dl Calcium Level 9.6 mg/dl Total Bilirubin 0.3 mg/dl Direct Bilirubin 0.00 mg/dl Indirect Bilirubin 0.3 mg/dl Aspartate Amino Transf (AST/SGOT) 27 IU/L Alanine Aminotransferase (ALT/SGPT) 58 IU/L Alkaline Phosphatase 249 IU/L Troponin I < 0.012 ng/ml Total Protein 8.0 g/dl Albumin 4.3 g/dl Globulin 3.70 g/dl Albumin/Globulin Ratio 1.16 Lipase 211 U/L Current Medications Medications Dose Sig/Cheng Start Time Status Last (Trade) Ordered Route PRN Stop Time Admin Dose Reason Admin 1 tab ONCE ONCE 02/22/18 DC Nitroglycerin SL 21:00 02/22/18 21:01 (Nitroglyceri n (Sl Tab) 0.4 Mg) Hydralazine 10 mg ONCE ONCE 02/22/18 DC 02/22/18 HCl IV 21:00 21:21 (Apresoline) 02/22/18 21:01 Aspirin 324 mg ONCE ONCE 02/22/18 DC 02/22/18 (Aspirin) PO 21:00 21:07 02/22/18 21:01 Albuterol 10 mg ONCE STAT 02/22/18 DC (Proventil INH 21:40 0.5% (Neb)) 02/22/18 21:45 Dextrose 50 ml ONCE STAT 02/22/18 DC (D50w IV 21:40 Syringe) 02/22/18 21:45 Insulin 8 unit ONCE ONCE 02/22/18 Human SC 22:00 Regular 02/22/18 22:01 (Humulin R) Procedures/MDM IV line was established patient was placed on ediphone operator rhythm strip revealed a sinus tachycardia at 110 bpm with upright P and T waves. Patient was afebrile EKG performed, read by me revealed a sinus tachycardia at 110 bpm, normal axis, right bundle branch block, no concerning ST elevations or depressions noted, prolonged QT of 503 ms I administered aspirin 324 mg p.o. for cardioprotective measures, nitroglycerin 0.4 mg sublingual, hydralazine 10 mg IV x1 EKG #2 was performed after above therapy revealing a sinus tachycardia at 101 bpm, normal axis, right bundle branch block, no concerning ST elevations or depressions noted 1 view chest x-ray performed, read by me reveals bilateral pulmonary congestion and cardiomegaly, no acute infiltrates, no pneumothorax CBC reveals mild leukopenia, electrolytes significant for end-stage kidney disease and hyperkalemia at 6.5, liver function tests are unremarkable, troponin was negative For acute hyperkalemia administered albuterol 10 mg via nebulizer, dextrose 25 g IV and regular insulin 8 units IV Critical Care: Time: 44 minutes, this was time separate from other billable procedures. Treatments/Evaluations: Close monitoring and treatment of unstable vital signs, cardiorespiratory, and neurologic status, while maintaining tight balance of fluid, respiratory, and cardiac interventions. Patient will be admitted to telemetry setting for continued medical management, urgent hemodialysis, and cardiology consultation Departure Diagnosis: Primary Impression: Chest pain Chest pain type: unspecified Qualified Codes: R07.9 - Chest pain, unspecified Additional Impressions: End stage renal disease on dialysis due to type 2 diabetes mellitus Essential (primary) hypertension Acute hyperkalemia Condition: MARCELLE Birch MD Feb 22, 2018 20:40
[2018-02-22] MEDS ORDERED: hydrALAzine 20 MG INJ IV ONE (21:00)
[2018-02-22] MEDS ORDERED: ASPIRIN 81 MG TAB PO ONE (21:00)
[2018-02-22] MEDS ORDERED: NITROGLYCERIN (SL) 0.4 MG TAB SL ONE (21:00)
[2018-02-22] MEDS ORDERED: DEXTROSE 50% 50 ML SYRINGE IV STA (21:40)
[2018-02-22] MEDS ORDERED: ALBUTEROL 0.5% (NEB) 2.5 MG/0.5 ML AMP INH STA (21:40)
[2018-02-22] MEDS ORDERED: INSULIN REGULAR, HUMAN 100 UNIT/1 ML 3ML VIAL SC ONE (22:00)
[2018-02-22] MEDS ORDERED: NA POLYST SULFON 15 GM/60 ML BTL PO ONE (23:00)
[2018-02-22] MEDS ORDERED: METOPROLOL 25 MG TAB PO SCH (23:00)
[2018-02-22] MEDS ORDERED: GLUCAGON 1 MG INJ IM PRN (23:30)
[2018-02-22] MEDS ORDERED: ALBUTEROL/IPRATROPIUM (NEB) 3 ML AMP HHN PRN (23:30)
[2018-02-22] MEDS ORDERED: DEXTROSE 50% 50 ML SYRINGE IV PRN ×2 (23:30)
[2018-02-22] MEDS ORDERED: GLUCOSE GEL 15 GRAM TUBE PO PRN ×2 (23:30)
[2018-02-22] MEDS: ISOSORBIDE MONONITRATE(SR)30 MG TAB PO SCH (23:30)
[2018-02-22] MEDS ORDERED: GLUCOSE GEL 15 GRAM TUBE BUCCAL PRN (23:30)
[2018-02-23] VITALS (25 sets, daily range): BP systolic 124–170; BP diastolic 50–125; PULSE 71–103; RESP 18–20; Ht 170.2 cm; Wt 73.0 kg
[2018-02-23] MEDS ORDERED: HYDROCODONE/APAP (5/325) TAB PO ONE
--- NOTE | 2018-02-23 | NUR ---
RECEIVED THE PT FROM ER WITH STABLE CONDITION PT SON AT BED SIDE MD ORDERS MARY BETH OUT
[2018-02-23] MEDS ORDERED: morphine SULFATE/PF (2 MG/2 ML) SYG IV PRN (03:00)
[2018-02-23] MEDS ORDERED: METOPROLOL 25 MG TAB PO SCH (05:00)
--- NOTE | 2018-02-23 07:49 | CONS ---
DATE OF ADMISSION: 02/22/2018 DATE OF CONSULTATION: 02/23/2018 REASON FOR CONSULTATION: End-stage renal disease. REQUESTING PHYSICIAN: Dr. Osborn HISTORY OF PRESENT ILLNESS: This is a 52-year-old female with a past medical history of end-stage re nal disease, history of hypertension, history of mineral bone disorder, history of hypothyroidism, dy slipidemia, history of congestive heart failure, diabetes, who presented to [facility] with chest pain and shortness of breath. The patient previously had a prolonged stay at [facility]. After discharge, the patient was in her usual state of health until she develo ped chest pain in the morning prior to admission. As a result, she came to [facility] Emerg ency Room. In the emergency room, the patient had laboratory data drawn, which showed a potassium le joseph of 6.5. The patient was given Kayexalate, was given nitroglycerin, aspirin and admitted to [facility] for further evaluation. In terms of patient's renal history, she is on dialysis 3 times weekly. The patient has been noncomp liant in the past with dialysis sessions. The patient did miss her hemodialysis session on Friday. PAST MEDICAL HISTORY: As stated above, history of end-stage renal disease, history of anemia, histor y of mineral bone disorder, history of diabetes, congestive heart failure, hypothyroidism, coronary a rtery disease. PAST SURGICAL HISTORY: The patient is status post parathyroidectomy, status post AV fistula placemen t. FAMILY HISTORY: No family history of kidney disease. SOCIAL HISTORY: She does not drink, smoke or do drugs. MEDICATIONS: The patient's medications have been reviewed. REVIEW OF SYSTEMS: A 14-point review of systems was conducted. Pertinent positives stated in HPI, o therwise negative. PHYSICAL EXAMINATION: VITAL SIGNS: Blood pressure is 156/65, respirations 18, pulse 102, temperature 98.3. HEENT: Head is normocephalic. NECK: Supple. HEART: Regular rate. LUNGS: Show diminished breath sounds at the base. ABDOMEN: Soft, nontender to palpation. No rebound or guarding. EXTREMITIES: Negative for clubbing, cyanosis. Trace edema. DERMATOLOGIC: No rashes. MUSCULOSKELETAL: No joint effusions. NEUROLOGIC: No change in exam. LABORATORY DATA: Shows sodium 141, potassium 5.9, BUN 73, creatinine 10.56. White count 4.4, hemogl obin 10.1, platelet count is 173. ASSESSMENT AND PLAN: This is a 52-year-old female who presents with: 1. End-stage renal disease. The patient is on dialysis Friday, , Friday with access AV f istula. Plan is for hemodialysis today. We will dialyze for 3 hours 2k bath, calcium 2.5. 2. Hyperkalemia. The patient will be dialyzed on a low potassium bath. 3. Volume overloaded etiology is secondary to end-stage renal disease. Plan is for ultrafiltration hemodialysis. 4. Hypertension in part due to increased intravascular volume. Continue current medical management. Continue ultrafiltration dialysis. 5. Anemia. Monitor hemoglobin and hematocrit levels. We will give Epogen as needed. 6. 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 We will monitor calcium and phosphorus levels. Check a PTH level. 7. Chest pain. The patient will be ruled out for acute coronary syndrome. Check serial troponins. Check a 2D echo. Other etiologies may be gastroesophageal reflux disease. Continue to monitor clos crow. Thank you, Dr. Osborn for this interesting consult. It will be a pleasure to follow the patient with katy christian throughout the hospital course. Dictated By: HARVEY LUCIO DO NR/NTS Conf#: [id number] DID#: [id number] CC: CHEYENNE OSBORN MD; KEZIA BRANDT DO;*EndCC*
[2018-02-23] MEDS: INSULIN ASPART [NOVOLOG] 3 ML PEN SC SCH ×4 (08:00→20:54)
[2018-02-23] MEDS: LEVOTHYROXINE 25 MCG TAB PO SCH (08:11)
[2018-02-23] MEDS: LEVOTHYROXINE 100 MCG TAB PO SCH (08:11)
--- NOTE | 2018-02-23 08:12 | NUR ---
RN NOTES CALLED THE [facility] AND HAVE APPNT FOR TODAY DIALYSIS WITH CONFIRMATION # [id number]. SPOKED WITH JANELLE.
[2018-02-23] MEDS: HEPARIN 5,000 UNIT/1 ML VIAL SC SCH ×2 (09:00→20:57)
[2018-02-23] MEDS ORDERED: DIPHENHYDRAMINE 50 MG INJ IV ONE (09:30)
--- NOTE | 2018-02-23 11:27 | NUR ---
SW: READMISSION QUESTIONNAIRE SW met with this 52-year-old Belarusian speaking female and her son Layo at bedside regarding readmission questionnaire. Patient recently d/c'd home on 02/12/18 and readmitted on 02/22/18 with admitting diagnosis of ESKD, CP and Hyperkalemia. Patient states that she did understand the dc instructions from previous admission. States that she did not follow up with her PMD because her insurance has been cancelled due to not submitting some paperwork. States that she did get all of her medications filled since last d/c. Denies having any issues with her medications. She denied having any questions/ concerns regarding her medical condition. Patient states she lives with her son at [address] [place] [address] [address], [place] [id number]. States she is disabled and receives SSI benefits. Denies having an AHCD, and verbally designated her son Layo Mcintosh ([phone]) as surrogate medical spokesperson. Patient states that her [employer] benefits were cancelled last month due to not submitting paperwork. SW notified financial counselor, Chace Almendarez [phone], who states he will f/u with patient and son and will try to assist with reinstating her benefits. Patient states her son is her primary caregiver and primary mode of transportation at this time. All other questions/ concerns denied at this time. Oil Plant Operator remains available as needed throughout patient's treatment process.
[2018-02-23] MEDS: CLOPIDOGREL 75 MG TAB PO SCH (13:31)
[2018-02-23] MEDS: AMLODIPINE 5 MG TAB PO SCH (13:32)
[2018-02-23] MEDS: ASPIRIN 81 MG TAB PO SCH (13:32)
[2018-02-23] MEDS: FAMOTIDINE 20 MG TAB PO SCH (13:32)
[2018-02-23] MEDS: ISOSORBIDE MONONITRATE(SR)30 MG TAB PO SCH (13:32)
[2018-02-23] MEDS: ATORVASTATIN 80 MG TAB PO SCH (13:33)
[2018-02-23] MEDS: MULTIVIT/CA CARB/B CMPLX/FA TAB PO SCH (13:36)
--- NOTE | 2018-02-23 14:55 | HP ---
Date/Time of Note Date/Time of Note DATE: 02/23/18 TIME: 14:44 Assessment/Plan VTE Prophylaxis Risk score (from Ns)>0 risk: 1 SCD applied (from [facility] [place]): No SCD contraindicated: patient refusal Pharmacological prophylaxis: heparin Lines/Catheters IV [facility]ter [facility]from [facility] Saline Lock Assessment/Plan Problems: (1) Acute bronchitis Status: Acute Comment: Brief course of antibiotics. Will not be giving steroids at this time but I can use an inhaled steroid to help knock this down Qualifiers: Bronchitis organism: unspecified organism Qualified Codes: J20.9 - Acute bronchitis, unspecified (2) Chest pain Status: Acute Comment: Standard rule out protocol, will have her radio performer see her Qualifiers: Chest pain type: unspecified Qualified Codes: R07.9 - Chest pain, unspecified (3) DM (diabetes mellitus), type 2 Status: Chronic Comment: Continue outpatient regimen for control Qualifiers: Diabetes mellitus bar useful or busser insulin use: with penitentiary use Diabetes mellitus complication status: with kidney complications Diabetes mellitus complication detail: with chronic kidney disease Chronic kidney disease stage: on chronic dialysis Qualified Codes: E11.22 - Type 2 diabetes mellitus with diabetic chronic kidney disease; N18.6 - End stage renal disease; Z79.4 - clutch assembler (current) use of insulin; Z99.2 - Dependence on renal dialysis (4) End stage renal disease on dialysis due to type 2 diabetes mellitus Status: Chronic Comment: Continue with hemodialysis and have social services counselor assist with getting her back on track with transportation (5) Essential (primary) hypertension Status: Chronic Comment: Continue medication therapy (6) Hepatic steatosis Status: Chronic Comment: Noted. (7) Hyperlipidemia Status: Chronic Comment: Continue with statin therapy Qualifiers: Hyperlipidemia type: pure hypercholesterolemia Qualified Codes: E78.00 - Pure hypercholesterolemia, unspecified (8) Hiatal hernia with GERD Status: Chronic Comment: Noted. 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 transplanted heart: [place] heart Qualified Codes: I25.10 - Atherosclerotic heart disease of [place] coronary artery without angina pectoris Result Diagram: 02/22/18204902/23/18 0451 Results 24hrs Laboratory Tests Test 02/22/18 20:50 02/22/18 22:34 02/22/18 23:00 02/23/18 04:51 White Blood Count 4.4 L Red Blood Count 3.59 L Hemoglobin 10.1 L Hematocrit 33.6 L Mean Corpuscular 93.6 Volume Mean Corpuscular 28.1 L Hemoglobin Mean Corpuscular 30.1 L Hemoglobin Concent Red Cell 19.2 H Distribution Width Platelet Count 173 # Mean Platelet Volume 11.9 H Immature 0.200 Granulocytes % Neutrophils % 55.0 Lymphocytes % 34.0 Monocytes % 7.8 Eosinophils % 2.1 Basophils % 0.9 Nucleated Red Blood 0.0 Cells % Immature 0.010 Granulocytes # Neutrophils # 2.4 Lymphocytes # 1.5 Monocytes # 0.3 Eosinophils # 0.1 Basophils # 0.0 Nucleated Red Blood 0.0 Cells # Prothrombin Time 16.1 H Prothrombin Time 1.3 Ratio INR International 1.28 Normalized Ratio Activated 30.9 Partial Thromboplast Time Sodium Level 142 141 Potassium Level 6.5 *H 5.9 H Chloride Level 96 L 101 Carbon Dioxide Level 24 21 Anion Gap 22 H 19 H Blood Urea Nitrogen 71 H 73 H Creatinine 10.18 H 10.57 H Est Glomerular 5 L 5 L Filtrat Rate mL/min Glucose Level 187 94 # Calcium Level 9.6 9.6 Total Bilirubin 0.3 Direct Bilirubin 0.00 Indirect Bilirubin 0.3 Aspartate Amino 27 Transf (AST/SGOT) Alanine 58 Aminotransferase (AL T/SGPT) Alkaline Phosphatase 249 H Troponin I < 0.012 < 0.012 Total Protein 8.0 Albumin 4.3 Globulin 3.70 H Albumin/Globulin 1.16 Ratio Lipase 211 Bedside Glucose 154 192 Test 02/23/18 08:00 02/23/18 12:00 Bedside Glucose 74 117 HPI/ROS Admit Date/Time Admit Date/Time Feb 22, 2018 at 23:02 Hx of Present Illness 52-year-old -Belgian female admitted after discharge 10 days ago. She reports that she developed a cough after discharge from the hospital. The cough persisted and she thinks it may have started causing her chest pain. In addition she missed a dialysis session as she reports because [facility] counseled her transportation to and from dialysis. She had left anterior chest pain with possibly shortness of breath. 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), diabetes, GERD, high cholesterol, hypertension, renal disease (End-stage renal disease on hemodialysis 3 days a week), other (Abnormal liver function test; hypocalcemia; vitamin D deficiency; secondary hyperparathyroidism;) Medications Current Medications Clopidogrel Bisulfate (plaVIX) 75 mg DAILY PO Last administered on 02/23/18 13:31; Admin Dose 75 MG; Start 02/23/18 at 09:00 Isosorbide Mononitrate (Imdur) 30 mg DAILY PO Last administered on 02/23/18 13 :32; Admin Dose 30 MG; Start 02/22/18 at 23:30 Famotidine (Pepcid) 10 mg DAILY PO Last administered on 02/23/18 13:32; Admin Dose 10 MG; Start 02/23/18 at 09:00 Insulin Aspart (Novolog Insulin Pen) NOVOLOG *MILD* ALGORITHM WITH MEALS BEDTIME SC ; Start 02/23/18 at 08:00 Levothyroxine Sodium (Synthroid) 200 mcg DAILY@0700 PO Last administered on 02/23/18 08:11; Admin Dose 200 MCG; Start 02/23/18 at 07:00 Levothyroxine Sodium (Synthroid) 25 mcg DAILY@0700 PO Last administered on 02/23/18 08:11; Admin Dose 25 MCG; Start 02/23/18 at 07:00 Aspirin (Aspirin) 81 mg DAILY PO Last administered on 02/23/18 13:32; Admin Dose 81 MG; Start 02/23/18 at 09:00 Atorvastatin Calcium (Lipitor) 80 mg DAILY PO Last administered on 02/23/18 13:33; Admin Dose 80 MG; Start 02/23/18 at 09:00 Amlodipine Besylate (Norvasc) 5 mg DAILY PO Last administered on 02/23/18 13:32; Admin Dose 5 MG; Start 02/23/18 at 09:00 Hydralazine HCl (Apresoline) 50 mg Q8H PRN PO ELEVATED SYSTOLIC BP; Start 02/22/18 at 23:30 Heparin Sodium (Porcine) (Heparin (5000 Units/1ml)) 5,000 unit BID SC ; Start 02/23/18 at 09:00 Metoprolol Tartrate (Lopressor) 25 mg BID PO Last administered on 02/23/18at 05:00; Admin Dose 25 MG; Start 02/23/18 at 05:00 Albuterol/ Ipratropium (Duoneb) 3 ml Q6H RESP THERAPY PRN HHN sob; Start 02/22/18 at 23:30 Miscellaneous Information 1 ea NOTE XX ; Start 02/22/18 at 23:30 Glucose (Glutose) 15 gm Q15M PRN PO DECREASED GLUCOSE; Start 02/22/18 at 23:30 Glucose (Glutose) 22.5 gm Q15M PRN PO DECREASED GLUCOSE; Start 02/22/18 at 23:30 Dextrose (D50w Syringe) 25 ml Q15M PRN IV DECREASED GLUCOSE; Start 02/22/18 at 23:30 Dextrose (D50w Syringe) 50 ml Q15M PRN IV DECREASED GLUCOSE; Start 02/22/18 at 23:30 Glucagon (Glucagen) 1 mg Q15M PRN IM DECREASED GLUCOSE; Start 02/22/18 at 23:30 Glucose (Glutose) 15 gm Q15M PRN BUCCAL DECREASED GLUCOSE; Start 02/22/18 at 23:30 Morphine Sulfate (morphine SULFATE (PF)) 2 mg Q4H PRN IV SEVERE PAIN LEVEL 7- 10; Start 02/23/18 at 03:00 Morphine Sulfate (morphine) 3 mg Q4H PRN IV SEVERE PAIN LEVEL 7-10; Start 02/23/18 at 03:00 Multivit/Ca Carb/ B Cmplx/FA/Prenat (Rizwana-Rodolfo) 1 tab DAILY PO Last administered on 02/23/18at 13:36; Admin Dose 1 TAB; Start 02/23/18 at 09:00 Epoetin Geo (Epogen (Esrd)) 8,000 units AFTER DIALYSIS SC ; Start 02/23/18 at 08:00 Coded Allergies: No Known Drug Allergies (Verified Allergy, Unknown, 02/03/18) Past Surgical History Past Surgical Hx: angioplasty, other (Status post thyroidectomy; history of C- section; construction of AV fistula) Family History Significant Family History: no pertinent family hx Social History Alcohol Use: none Smoking Status: Never smoker Drug Use: none Exam/Review of Systems Vital Signs Vitals Vital Signs Date Temp Pulse Resp B/P (MAP) Pulse Ox O2 O2 Flow FiO2 Time Delivery Rate 02/23/18 91 14:27 02/23/18 97.9 18 131/77 97 11:36 (95) 02/23/18 Room Air 09:35 02/22/18 21 22:01 Intake and Output 02/22/18 02/22/18 02/23/18 1515:00 23:00 07:00 IntakeIntake Total 100 ml BalanceBalance 100 ml Exam Constitutional: alert, oriented Head: normocephalic, atraumatic Eyes: nl conjunctiva, EOMI, nl lids ENMT: nl external ears & nose, nl lips & teeth, nl nasal mucosa & septum Neck: supple, non-tender Respiratory: clear to auscultation, normal air movement Cardiovascular: regular rate and rhythm, nl pulses Gastrointestinal: soft, nl liver, spleen, non-tender Musculoskeletal: nl extremities to inspection, nl gait and stance MARGARITO VIVAR MD Feb 23, 2018 14:55
[2018-02-23] MEDS ORDERED: METOPROLOL 25 MG TAB PO ONE (15:46)
--- NOTE | 2018-02-23 15:50 | CONS ---
Date/Time of Note Date/Time of Note DATE: 02/23/18 TIME: 15:44 Assessment/Plan Assessment/Plan Assessment/Plan Possible bronchitis Chest pain with coughing End-stage renal disease on hemodialysis CAD with history of PCI History of hypertension Diabetes Dyslipidemia -Patient complains of chest pain with coughing and is nonexertional. Serial cardiac enzymes were negative. Patient with known history of coronary artery disease with chronic total occlusion of RCA, patient has been pending intervention to be done at [facility]. -We will continue anti-platelet therapy, beta-mariaelena and titrate as heart rate and blood pressure permits, long-acting nitroglycerin. Result Diagram: 02/22/18204902/23/18 0451 Results 24hrs Laboratory Tests Test 02/22/18 20:50 02/22/18 22:34 02/22/18 23:00 02/23/18 04:51 White Blood Count 4.4 L Red Blood Count 3.59 L Hemoglobin 10.1 L Hematocrit 33.6 L Mean Corpuscular 93.6 Volume Mean Corpuscular 28.1 L Hemoglobin Mean Corpuscular 30.1 L Hemoglobin Concent Red Cell 19.2 H Distribution Width Platelet Count 173 # Mean Platelet Volume 11.9 H Immature 0.200 Granulocytes % Neutrophils % 55.0 Lymphocytes % 34.0 Monocytes % 7.8 Eosinophils % 2.1 Basophils % 0.9 Nucleated Red Blood 0.0 Cells % Immature 0.010 Granulocytes # Neutrophils # 2.4 Lymphocytes # 1.5 Monocytes # 0.3 Eosinophils # 0.1 Basophils # 0.0 Nucleated Red Blood 0.0 Cells # Prothrombin Time 16.1 H Prothrombin Time 1.3 Ratio INR International 1.28 Normalized Ratio Activated 30.9 Partial Thromboplast Time Sodium Level 142 141 Potassium Level 6.5 *H 5.9 H Chloride Level 96 L 101 Carbon Dioxide Level 24 21 Anion Gap 22 H 19 H Blood Urea Nitrogen 71 H 73 H Creatinine 10.18 H 10.57 H Est Glomerular 5 L 5 L Filtrat Rate mL/min Glucose Level 187 94 # Calcium Level 9.6 9.6 Total Bilirubin 0.3 Direct Bilirubin 0.00 Indirect Bilirubin 0.3 Aspartate Amino 27 Transf (AST/SGOT) Alanine 58 Aminotransferase (AL T/SGPT) Alkaline Phosphatase 249 H Troponin I < 0.012 < 0.012 Total Protein 8.0 Albumin 4.3 Globulin 3.70 H Albumin/Globulin 1.16 Ratio Lipase 211 Bedside Glucose 154 192 Test 02/23/18 08:00 02/23/18 12:00 Bedside Glucose 74 117 Consultation Date/Type/Reason Admit Date/Time Feb 22, 2018 at 23:02 Type of Consult cv Reason for Consultation Chest pain Hx of Present Illness This is a 52-year-old female well-known to me from multiple previous admissions with history of coronary artery disease, hypertension, end-stage renal disease on hemodialysis who presents with cough and chest pain. Patient with progressive worsening cough over the past week with fatigue. Patient then developed chest pain with coughing. Denies chest pain without coughing. Denies shortness of breath or dizziness. Because of worsening symptoms, patient came to the emergency room. She denies any fevers or chills. 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), diabetes, GERD, high cholesterol, hypertension, renal disease (End-stage renal disease on hemodialysis 3 days a week), other (Abnormal liver function test; hypocalcemia; vitamin D deficiency; secondary hyperparathyroidism;) Medications Current Medications Clopidogrel Bisulfate (plaVIX) 75 mg DAILY PO Last administered on 02/23/18at 13:31; Admin Dose 75 MG; Start 02/23/18 at 09:00 Isosorbide Mononitrate (Imdur) 30 mg DAILY PO Last administered on 02/23/18at 13:32; Admin Dose 30 MG; Start 02/22/18 at 23:30 Famotidine (Pepcid) 10 mg DAILY PO Last administered on 02/23/18at 13:32; Admin Dose 10 MG; Start 02/23/18 at 09:00 Insulin Aspart (Novolog Insulin Pen) NOVOLOG *MILD* ALGORITHM WITH MEALS BEDTIME SC ; Start 02/23/18 at 08:00 Levothyroxine Sodium (Synthroid) 200 mcg DAILY@0700 PO Last administered on 02/23/18at 08:11; Admin Dose 200 MCG; Start 02/23/18 at 07:00 Levothyroxine Sodium (Synthroid) 25 mcg DAILY@0700 PO Last administered on 02/23/18at 08:11; Admin Dose 25 MCG; Start 02/23/18 at 07:00 Aspirin (Aspirin) 81 mg DAILY PO Last administered on 02/23/18at 13:32; Admin Dose 81 MG; Start 02/23/18 at 09:00 Atorvastatin Calcium (Lipitor) 80 mg DAILY PO Last administered on 02/23/18at 13:33; Admin Dose 80 MG; Start 02/23/18 at 09:00 Amlodipine Besylate (Norvasc) 5 mg DAILY PO Last administered on 02/23/18at 13:32; Admin Dose 5 MG; Start 02/23/18 at 09:00 Hydralazine HCl (Apresoline) 50 mg Q8H PRN PO ELEVATED SYSTOLIC BP; Start 02/22/18 at 23:30 Heparin Sodium (Porcine) (Heparin (5000 Units/1ml)) 5,000 unit BID SC ; Start 02/23/18 at 09:00 Metoprolol Tartrate (Lopressor) 25 mg BID PO Last administered on 02/23/18at 05:00; Admin Dose 25 MG; Start 02/23/18 at 05:00 Albuterol/ Ipratropium (Duoneb) 3 ml Q6H RESP THERAPY PRN HHN sob; Start 02/22/18 at 23:30 Miscellaneous Information 1 ea NOTE XX ; Start 02/22/18 at 23:30 Glucose (Glutose) 15 gm Q15M PRN PO DECREASED GLUCOSE; Start 02/22/18 at 23:30 Glucose (Glutose) 22.5 gm Q15M PRN PO DECREASED GLUCOSE; Start 02/22/18 at 23:30 Dextrose (D50w Syringe) 25 ml Q15M PRN IV DECREASED GLUCOSE; Start 02/22/18 at 23:30 Dextrose (D50w Syringe) 50 ml Q15M PRN IV DECREASED GLUCOSE; Start 02/22/18 at 23:30 Glucagon (Glucagen) 1 mg Q15M PRN IM DECREASED GLUCOSE; Start 02/22/18 at 23:30 Glucose (Glutose) 15 gm Q15M PRN BUCCAL DECREASED GLUCOSE; Start 02/22/18 at 23:30 Morphine Sulfate (morphine SULFATE (PF)) 2 mg Q4H PRN IV SEVERE PAIN LEVEL 7- 10; Start 02/23/18 at 03:00 Morphine Sulfate (morphine) 3 mg Q4H PRN IV SEVERE PAIN LEVEL 7-10; Start 02/23/18 at 03:00 Multivit/Ca Carb/ B Cmplx/FA/Prenat (Rizwana-Rodolfo) 1 tab DAILY PO Last administered on 02/23/18at 13:36; Admin Dose 1 TAB; Start 02/23/18 at 09:00 Epoetin Geo (Epogen (Esrd)) 8,000 units AFTER DIALYSIS SC ; Start 02/23/18 at 08:00 Tiotropium [place] (Spiriva) 1 inh DAILY INH ; Start 02/23/18 at 15:00 Fluticasone/ Vilanterol (Breo Ellipta 100-25 Mcg Inh) 1 inh DAILY INH ; Start 02/23/18 at 15:00 Cholecalciferol (Vitamin D) 2,000 unit DAILY PO ; Start 02/24/18 at 09:00 Calcitriol (Rocaltrol) 0.25 mcg AC BREAKFAST PO ; Start 02/24/18 at 07:00 Allergies: Coded Allergies: No Known Drug Allergies (Verified Allergy, Unknown, 02/03/18) Past Surgical History Past Surgical Hx: angioplasty, other (Status post thyroidectomy; history of C- section; construction of AV fistula) Social History Alcohol Use: none Smoking Status: Never smoker Drug Use: none Exam/Review of Systems Vital Signs Vitals Vital Signs Date Temp Pulse Resp B/P (MAP) Pulse Ox O2 O2 Flow FiO2 Time Delivery Rate 02/23/18 91 14:27 02/23/18 97.9 18 131/77 97 11:36 (95) 02/23/18 Room Air 09:35 02/22/18 21 22:01 Intake and Output 02/22/18 02/22/18 02/23/18 1515:00 23:00 07:00 IntakeIntake Total 100 ml BalanceBalance 100 ml Exam No apparent distress Constitutional: alert, oriented Head: normocephalic Respiratory: other (Coarse breath sounds bilaterally, no wheezing) Cardiovascular: regular rate and rhythm, other (S1-S2 heard) Gastrointestinal: soft, non-tender, bowel sounds Extremities: other (No significant edema) Medications Medications Current Medications Clopidogrel Bisulfate (plaVIX) 75 mg DAILY PO Last administered on 02/23/18at 13:31; Admin Dose 75 MG; Start 02/23/18 at 09:00 Isosorbide Mononitrate (Imdur) 30 mg DAILY PO Last administered on 02/23/18at 13:32; Admin Dose 30 MG; Start 02/22/18 at 23:30 Famotidine (Pepcid) 10 mg DAILY PO Last administered on 02/23/18at 13:32; Admin Dose 10 MG; Start 02/23/18 at 09:00 Insulin Aspart (Novolog Insulin Pen) NOVOLOG *MILD* ALGORITHM WITH MEALS BEDTIME SC ; Start 02/23/18 at 08:00 Levothyroxine Sodium (Synthroid) 200 mcg DAILY@0700 PO Last administered on 02/23/18at 08:11; Admin Dose 200 MCG; Start 02/23/18 at 07:00 Levothyroxine Sodium (Synthroid) 25 mcg DAILY@0700 PO Last administered on 02/23/18at 08:11; Admin Dose 25 MCG; Start 02/23/18 at 07:00 Aspirin (Aspirin) 81 mg DAILY PO Last administered on 02/23/18at 13:32; Admin Dose 81 MG; Start 02/23/18 at 09:00 Atorvastatin Calcium (Lipitor) 80 mg DAILY PO Last administered on 02/23/18at 13:33; Admin Dose 80 MG; Start 02/23/18 at 09:00 Amlodipine Besylate (Norvasc) 5 mg DAILY PO Last administered on 02/23/18at 13:32; Admin Dose 5 MG; Start 02/23/18 at 09:00 Hydralazine HCl (Apresoline) 50 mg Q8H PRN PO ELEVATED SYSTOLIC BP; Start 02/22/18 at 23:30 Heparin Sodium (Porcine) (Heparin (5000 Units/1ml)) 5,000 unit BID SC ; Start 02/23/18 at 09:00 Metoprolol Tartrate (Lopressor) 25 mg BID PO Last administered on 02/23/18at 05:00; Admin Dose 25 MG; Start 02/23/18 at 05:00 Albuterol/ Ipratropium (Duoneb) 3 ml Q6H RESP THERAPY PRN HHN sob; Start 02/22/18 at 23:30 Miscellaneous Information 1 ea NOTE XX ; Start 02/22/18 at 23:30 Glucose (Glutose) 15 gm Q15M PRN PO DECREASED GLUCOSE; Start 02/22/18 at 23:30 Glucose (Glutose) 22.5 gm Q15M PRN PO DECREASED GLUCOSE; Start 02/22/18 at 23:30 Dextrose (D50w Syringe) 25 ml Q15M PRN IV DECREASED GLUCOSE; Start 02/22/18 at 23:30 Dextrose (D50w Syringe) 50 ml Q15M PRN IV DECREASED GLUCOSE; Start 02/22/18 at 23:30 Glucagon (Glucagen) 1 mg Q15M PRN IM DECREASED GLUCOSE; Start 02/22/18 at 23:30 Glucose (Glutose) 15 gm Q15M PRN BUCCAL DECREASED GLUCOSE; Start 02/22/18 at 23:30 Morphine Sulfate (morphine SULFATE (PF)) 2 mg Q4H PRN IV SEVERE PAIN LEVEL 7- 10; Start 02/23/18 at 03:00 Morphine Sulfate (morphine) 3 mg Q4H PRN IV SEVERE PAIN LEVEL 7-10; Start 02/23/18 at 03:00 Multivit/Ca Carb/ B Cmplx/FA/Prenat (Rizwana-Rodolfo) 1 tab DAILY PO Last administered on 02/23/18at 13:36; Admin Dose 1 TAB; Start 02/23/18 at 09:00 Epoetin Geo (Epogen (Esrd)) 8,000 units AFTER DIALYSIS SC ; Start 02/23/18 at 08:00 Tiotropium Chardon (Spiriva) 1 inh DAILY INH ; Start 02/23/18 at 15:00 Fluticasone/ Vilanterol (Breo Ellipta 100-25 Mcg Inh) 1 inh DAILY INH ; Start 02/23/18 at 15:00 Cholecalciferol (Vitamin D) 2,000 unit DAILY PO ; Start 02/24/18 at 09:00 Calcitriol (Rocaltrol) 0.25 mcg AC BREAKFAST PO ; Start 02/24/18 at 07:00 Imaging Imaging ECG performed yesterday demonstrates sinus tachycardia at 110 bpm, QRS 124 ms, nonspecific ST abnormalities Heri Schaefer DO Feb 23, 2018 15:50
[2018-02-23] MEDS: FLUTICASONE/VILANTEROL 100-25 INH SCH (16:05)
[2018-02-23] MEDS: TIOTROPIUM 18 MCG CAPSULE INHA DEV INH SCH (16:06)
[2018-02-23] MEDS ORDERED: DIPHENHYDRAMINE 25 MG CAP PO ONE (17:30)
[2018-02-23] MEDS: EPOETIN 4000 UNITS/1 ML INJ (ESRD) SC SCH (17:40)
--- NOTE | 2018-02-23 18:22 | NUR ---
[facility] PT. IS ALERT, CALL LIGHT W/IN REACH. DIALYSIS WAS DONE TODAY WITH 2LITERS OUTPUT. NO SOB OR DISTRESS NOTED. KEPT CLEAN AND DRY. ENCOURAGE REPOSITIONING. WILL CONTINUE TO MONITOR.
[2018-02-23] MEDS: METOPROLOL 25 MG TAB PO SCH (20:55)
[2018-02-24] VITALS (10 sets, daily range): BP systolic 125–157; BP diastolic 58–71; PULSE 81–88; RESP 18–20
[2018-02-24] MEDS: LEVOTHYROXINE 25 MCG TAB PO SCH (06:30)
[2018-02-24] MEDS: METOPROLOL 25 MG TAB PO SCH ×2 (06:30→21:48)
[2018-02-24] MEDS: CALCITRIOL 0.25 MCG CAP PO SCH (06:30)
[2018-02-24] MEDS: LEVOTHYROXINE 100 MCG TAB PO SCH (06:30)
[2018-02-24] MEDS: INSULIN ASPART [NOVOLOG] 3 ML PEN SC SCH ×3 (07:44→17:23)
--- NOTE | 2018-02-24 07:58 | NUR ---
RN NOTES CALLED [facility] FOR THE DIALYSIS ON 02/25/18 OF THE PT. WITH CONFIRMATION #[id number]. SPOKE WITH KAIN.
--- NOTE | 2018-02-24 08:03 | PN ---
DATE: 02/24/2018 SUBJECTIVE: The patient is stable. No events overnight. No fevers, chills, nausea, vomiting. OBJECTIVE: VITAL SIGNS: Blood pressure is 125/58, respiratory rate 20, pulse 86, temperature 98.5. HEENT: Head is normocephalic. NECK: Supple. HEART: Regular rate. LUNGS: Show diminished breath sounds at the base. ABDOMEN: Soft, nontender to palpation without rebound or guarding. EXTREMITIES: Negative for clubbing, cyanosis, edema. DERMATOLOGIC: No rashes. MUSCULOSKELETAL: No joint effusions. NEUROLOGIC: No change in exam. MEDICATIONS: The patient's medications have been reviewed. LABORATORY DATA: Shows sodium 145, BUN 43, creatinine 7.42, phosphorus is 7.2. White count 3.7, hem oglobin 10.3, platelet count is 156. ASSESSMENT AND PLAN: 1. End-stage renal disease. The patient had hemodialysis yesterday and tolerated well. Anticipate dialysis again tomorrow. 2. Hyperkalemia, resolved. Continue dialysis on a low potassium bath. 3. Volume overload. Continue ultrafiltration dialysis. 4. Hypertension. Continue medical management. Continue ultrafiltration hemodialysis. 5. Anemia. Monitor H and H levels. Continue Epogen. 6. 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 Continue vitamin D analogs. Continue p hos binders. Will check a calcium and phosphorus level. 7. Chest pain. The patient is being ruled out for acute coronary syndrome. Etiology appears to be non-cardiac at this time. Continue medical management. Follow up with cardiology. 8. Bronchitis. Continue current antibiotic regimen. Follow up with primary team. 9. Diabetes. Continue current insulin regimen. Dictated By: HARVEY BAIN/NTS Conf#: [id number] DID#: [id number] CC: CHEYENNE OSBORN MD;*EndCC*
--- NOTE | 2018-02-24 08:46 | PN ---
Date/Time of Note Date/Time of Note DATE: 02/24/18 TIME: 08:43 Assessment/Plan VTE Prophylaxis Risk score (from Ns)>0 risk: 1 SCD applied (from Ns): No SCD contraindicated: low risk/ambulating Pharmacological prophylaxis: heparin Lines/Catheters IV Catheter Type (from Nrsg): Saline Lock Assessment/Plan Problems: (1) Acute bronchitis Status: Acute Comment: 1 dosage of IV steroids. I understand that this will raise her sugars briefly. In addition 1 dose of azithromycin Qualifiers: Bronchitis organism: unspecified organism Qualified Codes: J20.9 - Acute bronchitis, unspecified (2) Chest pain Status: Acute Comment: Has ruled out for cardiac event. This is most likely chest wall pain although she has known coronary disease. Qualifiers: Chest pain type: unspecified Qualified Codes: R07.9 - Chest pain, unspecified (3) Atherosclerotic heart disease of [place] coronary artery without angina pectoris Status: Chronic Comment: Patient reports she understands she needs to make her appointment [facility] for the intervention Qualifiers: [place] vs. transplanted heart: [place] heart Qualified Codes: I25.10 - Atherosclerotic heart disease of [place] coronary artery without angina pectoris (4) Hyperlipidemia Status: Chronic Comment: On full dose treatment Qualifiers: Hyperlipidemia type: pure hypercholesterolemia Qualified Codes: E78.00 - Pure hypercholesterolemia, unspecified (5) End stage renal disease on dialysis due to type 2 diabetes mellitus Status: Chronic Comment: As per nephrology. Need to work out her [employer]i-[employer] stuff so that she does not miss dialysis due to lack of transportation (6) DM (diabetes mellitus), type 2 Status: Chronic Comment: Presently with adequate control. 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 We have room to move up with a beta-mariaelena and I will increase this (9) Secondary hyperparathyroidism of renal origin Status: Chronic Comment: Noted and controlled Result Diagram: 02/24/18 0518 02/24/18 0518 Results 24hrs Laboratory Tests Test 02/23/18 12:00 02/23/18 17:07 02/23/18 20:26 02/24/18 05:18 Bedside Glucose 117 134 168 White Blood Count 3.7 L Red Blood Count 3.60 L Hemoglobin 10.3 L Hematocrit 34.0 L Mean Corpuscular 94.4 Volume Mean Corpuscular 28.6 L Hemoglobin Mean Corpuscular 30.3 L Hemoglobin Concent Red Cell 19.3 H Distribution Width Platelet Count 156 Mean Platelet Volume 11.3 H Immature 0.000 L Granulocytes % Neutrophils % 49.9 Lymphocytes % 36.7 Monocytes % 8.2 Eosinophils % 4.1 Basophils % 1.1 Nucleated Red Blood 0.0 Cells % Immature 0.000 Granulocytes # Neutrophils # 1.8 Lymphocytes # 1.4 Monocytes # 0.3 Eosinophils # 0.2 Basophils # 0.0 Nucleated Red Blood 0.0 Cells # Sodium Level 145 H Potassium Level 5.1 Chloride Level 99 Carbon Dioxide Level 27 Anion Gap 19 H Blood Urea Nitrogen 43 #H Creatinine 7.42 #H Est Glomerular 7 L Filtrat Rate mL/min Glucose Level 131 Calcium Level 9.0 Phosphorus Level 7.2 H Magnesium Level 2.3 Test 02/24/18 07:43 Bedside Glucose 110 Subjective 24 Hr Interval Summary Free Text/Dictation Patient reports she still has the cough especially overnight. She reports no chest pain and denies any shortness of breath Constitutional: no complaints Respiratory: cough Cardiovascular: no complaints Gastrointestinal: no complaints Musculoskeletal: no complaints Exam/Review of Systems Vital Signs Vitals Vital Signs Date Temp Pulse Resp B/P (MAP) Pulse Ox O2 O2 Flow FiO2 Time Delivery Rate 02/24/18 98.5 86 20 125/58 97 07:32 (80) 02/23/18 Room Air 09:35 02/22/18 21 22:01 Intake and Output 02/23/18 02/23/18 02/24/18 1515:00 23:00 07:00 IntakeIntake Total 250 ml 300 ml OutputOutput Total 2700 ml BalanceBalance -2700 ml 250 ml 300 ml Exam [place] -[place] female just waking up Constitutional: alert, oriented Respiratory: clear to auscultation (Improved versus yesterday's exam), normal air movement Cardiovascular: regular rate and rhythm, nl pulses Gastrointestinal: soft, nl liver, spleen, non-tender Medications Medications Current Medications Clopidogrel Bisulfate (plaVIX) 75 mg DAILY PO Last administered on 02/23/18 13:31; Admin Dose 75 MG; Start 02/23/18 at 09:00 Isosorbide Mononitrate (Imdur) 30 mg DAILY PO Last administered on 02/23/18 13:32; Admin Dose 30 MG; Start 02/22/18 at 23:30 Famotidine (Pepcid) 10 mg DAILY PO Last administered on 02/23/18 13:32; Admin Dose 10 MG; Start 02/23/18 at 09:00 Insulin Aspart (Novolog Insulin Pen) NOVOLOG *MILD* ALGORITHM WITH MEALS BEDTIME SC ; Start 02/23/18 at 08:00 Levothyroxine Sodium (Synthroid) 200 mcg DAILY@0700 PO Last administered on 02/24/18 06:30; Admin Dose 200 MCG; Start 02/23/18 at 07:00 Levothyroxine Sodium (Synthroid) 25 mcg DAILY@0700 PO Last administered on 02/24/18 06:30; Admin Dose 25 MCG; Start 02/23/18 at 07:00 Aspirin (Aspirin) 81 mg DAILY PO Last administered on 02/23/18 13:32; Admin Dose 81 MG; Start 02/23/18 at 09:00 Atorvastatin Calcium (Lipitor) 80 mg DAILY PO Last administered on 02/23/18 13:33; Admin Dose 80 MG; Start 02/23/18 at 09:00 Amlodipine Besylate (Norvasc) 5 mg DAILY PO Last administered on 02/23/18 13:32; Admin Dose 5 MG; Start 02/23/18 at 09:00 Hydralazine HCl (Apresoline) 50 mg Q8H PRN PO ELEVATED SYSTOLIC BP; Start 02/22/18 at 23:30 Heparin Sodium (Porcine) (Heparin (5000 Units/1ml)) 5,000 unit BID SC Last administered on 02/23/18at 20:57; Admin Dose 5,000 UNIT; Start 02/23/18 at 09:00 Albuterol/ Ipratropium (Duoneb) 3 ml Q6H RESP THERAPY PRN HHN sob; Start 02/22/18 at 23:30 Miscellaneous Information 1 ea NOTE XX ; Start 02/22/18 at 23:30 Glucose (Glutose) 15 gm Q15M PRN PO DECREASED GLUCOSE; Start 02/22/18 at 23:30 Glucose (Glutose) 22.5 gm Q15M PRN PO DECREASED GLUCOSE; Start 02/22/18 at 23:30 Dextrose (D50w Syringe) 25 ml Q15M PRN IV DECREASED GLUCOSE; Start 02/22/18 at 23:30 Dextrose (D50w Syringe) 50 ml Q15M PRN IV DECREASED GLUCOSE; Start 02/22/18 at 23:30 Glucagon (Glucagen) 1 mg Q15M PRN IM DECREASED GLUCOSE; Start 02/22/18 at 23:30 Glucose (Glutose) 15 gm Q15M PRN BUCCAL DECREASED GLUCOSE; Start 02/22/18 at 23:30 Morphine Sulfate (morphine SULFATE (PF)) 2 mg Q4H PRN IV SEVERE PAIN LEVEL 7-10 Last administered on 02/23/18at 21:07; Admin Dose 2 MG; Start 02/23/18 at 03:00 Morphine Sulfate (morphine) 3 mg Q4H PRN IV SEVERE PAIN LEVEL 7-10; Start 02/23/18 at 03:00 Multivit/Ca Carb/ B Cmplx/FA/Prenat (Rizwana-Rodolfo) 1 tab DAILY PO Last administered on 02/23/18at 13:36; Admin Dose 1 TAB; Start 02/23/18 at 09:00 Epoetin Geo (Epogen (Esrd)) 8,000 units AFTER DIALYSIS SC Last administered on 02/23/18at 17:40; Admin Dose 8,000 UNITS; Start 02/23/18 at 08:00 Tiotropium [place] (Spiriva) 1 inh DAILY INH Last administered on 02/23/18at 16:06; Admin Dose 1 INH; Start 02/23/18 at 15:00 Fluticasone/ Vilanterol (Breo Ellipta 100-25 Mcg Inh) 1 inh DAILY INH Last administered on 02/23/18at 16:05; Admin Dose 1 INH; Start 02/23/18 at 15:00 Cholecalciferol (Vitamin D) 2,000 unit DAILY PO ; Start 02/24/18 at 09:00 Calcitriol (Rocaltrol) 0.25 mcg AC BREAKFAST PO Last administered on 02/24/18at 06:30; Admin Dose 0.25 MCG; Start 02/24/18 at 07:00 Sevelamer Carbonate (Renvela) 800 mg WITH MEALS PO ; Start 02/24/18 at 08:00 Metoprolol Tartrate (Lopressor) 50 mg Q12 PO ; Start 02/24/18 at 21:00 Metoprolol Tartrate (Lopressor) 25 mg ONCE ONCE PO ; Start 02/24/18 at 09:00; Stop 02/24/18 at 09:01 MARGARITO VIVAR MD Feb 24, 2018 08:46
[2018-02-24] MEDS ORDERED: HYDROCORTISONE 100 MG INJ IV ONE (09:00)
[2018-02-24] MEDS ORDERED: METOPROLOL 25 MG TAB PO ONE (09:00)
[2018-02-24] MEDS ORDERED: NPH, HUMAN INSULIN ISOPHANE 3ML VIAL SC ONE (09:00)
[2018-02-24] MEDS: ISOSORBIDE MONONITRATE(SR)30 MG TAB PO SCH (09:31)
[2018-02-24] MEDS: SEVELAMER CARBONATE 800 MG TABLET PO SCH ×3 (09:31→17:19)
[2018-02-24] MEDS: ASPIRIN 81 MG TAB PO SCH (09:31)
[2018-02-24] MEDS: AMLODIPINE 5 MG TAB PO SCH (09:31)
[2018-02-24] MEDS: CLOPIDOGREL 75 MG TAB PO SCH (09:32)
[2018-02-24] MEDS: CHOLECALCIFEROL 2,000 UNIT CAP PO SCH (09:32)
[2018-02-24] MEDS: MULTIVIT/CA CARB/B CMPLX/FA TAB PO SCH (09:32)
[2018-02-24] MEDS: ATORVASTATIN 80 MG TAB PO SCH (09:32)
[2018-02-24] MEDS: FAMOTIDINE 20 MG TAB PO SCH (09:32)
[2018-02-24] MEDS: AZITHROMYCIN 250 MG TAB PO SCH (09:33)
[2018-02-24] MEDS: HEPARIN 5,000 UNIT/1 ML VIAL SC SCH ×2 (09:44→21:52)
[2018-02-24] MEDS: FLUTICASONE/VILANTEROL 100-25 INH SCH (09:48)
[2018-02-24] MEDS: TIOTROPIUM 18 MCG CAPSULE INHA DEV INH SCH (09:48)
--- NOTE | 2018-02-24 13:20 | NUR ---
LIZA: FOLLOW UP Dr. Mondragon requested that this marketing writer follow up with Chace Almendarez, financial counselor, regarding the status of patient's Medi-[employer]. LIZA followed up with Chace, who states that he is currently waiting for patient's son to bring in appropriate paperwork for Medi-Brian redetermination. LIZA followed up with patient's son and informed him of the importance of bringing in such documentation. He states he will bring it in today. SW remains available as needed.
--- NOTE | 2018-02-24 14:16 | NUR ---
CM NOTE FOLLOWED UP WITH OCTAVIA AND AT THIS TIME, HE IS WAITING FOR SON TO BRING PROOF OF INCOME AND IS WAITING ON FAMILY TO PROVIDE NEEDED PAPERWORK, IN ORDER TO SU[facility]. CM WILL REMAIN AVAILABLE.
--- NOTE | 2018-02-24 17:40 | NUR ---
RN NOTES. SPOKED WITH DR. OSBORN AND INFORMED HER THAT PT. IS C/O GEN ITCHINESS. SHE ORDERED TO GIVE ONE TIME DOSE OF BENADRYL 25MG CAP. CARRIED OUT ORDERED.
[2018-02-24] MEDS ORDERED: DIPHENHYDRAMINE 25 MG CAP PO ONE (18:00)
--- NOTE | 2018-02-24 18:43 | NUR ---
RN NOTES PT. IS AWAKE AND ORIENTED ABLE TO MAKE NEEDS KNOWN, CALL LIGHT W/IN REACH. FOR HD CAL ORDERED. NO SOB OR DISTRESS NOTED. KEPT CLEAN AND DRY. WILL CONTINUE TO MONITOR.
--- NOTE | 2018-02-24 19:13 | CONS ---
Date/Time of Note Date/Time of Note DATE: 02/24/18 TIME: 19:12 Assessment/Plan Assessment/Plan Assessment/Plan Possible bronchitis Chest pain with coughing End-stage renal disease on hemodialysis CAD with history of PCI History of hypertension Diabetes Dyslipidemia -Cough is still present but chest discomfort is improving. As mentioned serial cardiac enzymes have been negative and symptoms not appear cardiac in origin. -Patient with known history of coronary artery disease with chronic total occlusion of RCA, patient has been pending intervention to be done at [facility]. -We will continue anti-platelet therapy, beta-mariaelena dose has been increased, continue long-acting nitroglycerin as blood pressure tolerates. Result Diagram: 02/24/1818 02/24/18517 Results 24hrs Laboratory Tests Test 02/23/18 20:26 02/24/18 05:18 02/24/18 07:43 02/24/18 09:47 Bedside Glucose 168 110 95 White Blood Count 3.7 L Red Blood Count 3.60 L Hemoglobin 10.3 L Hematocrit 34.0 L Mean Corpuscular 94.4 Volume Mean Corpuscular 28.6 L Hemoglobin Mean Corpuscular 30.3 L Hemoglobin Concent Red Cell 19.3 H Distribution Width Platelet Count 156 Mean Platelet Volume 11.3 H Immature 0.000 L Granulocytes % Neutrophils % 49.9 Lymphocytes % 36.7 Monocytes % 8.2 Eosinophils % 4.1 Basophils % 1.1 Nucleated Red Blood 0.0 Cells % Immature 0.000 Granulocytes # Neutrophils # 1.8 Lymphocytes # 1.4 Monocytes # 0.3 Eosinophils # 0.2 Basophils # 0.0 Nucleated Red Blood 0.0 Cells # Sodium Level 145 H Potassium Level 5.1 Chloride Level 99 Carbon Dioxide Level 27 Anion Gap 19 H Blood Urea Nitrogen 43 #H Creatinine 7.42 #H Est Glomerular 7 L Filtrat Rate mL/min Glucose Level 131 Calcium Level 9.0 Phosphorus Level 7.2 H Magnesium Level 2.3 Test 02/24/18 11:38 02/24/18 12:40 02/24/18 17:06 Bedside Glucose 159 168 273 H Consultation Date/Type/Reason Admit Date/Time Feb 22, 2018 at 23:02 Initial Consult Date Type of Consult cv 24 HR Interval Summary Free Text/Dictation Cough is the same, chest discomfort is less. Denies shortness of breath Exam/Review of Systems Vital Signs Vitals Vital Signs Date Temp Pulse Resp B/P (MAP) Pulse Ox O2 O2 Flow FiO2 Time Delivery Rate 02/24/18 88 16:45 02/24/18 98.3 20 145/67 94 15:28 (93) 02/23/18 Room Air 09:35 02/22/18 21 22:01 Intake and Output 02/23/18 02/23/18 02/24/18 1414:59 22:59 06:59 IntakeIntake Total 250 ml 300 ml OutputOutput Total 2700 ml BalanceBalance -2700 ml 250 ml 300 ml Exam No apparent distress Constitutional: alert, oriented Head: normocephalic Respiratory: other (Coarse breath sounds bilaterally, no wheezing) Cardiovascular: regular rate and rhythm, other (S1-S2 heard) Gastrointestinal: soft, non-tender, bowel sounds Extremities: edema (Trace) Medications Medications Current Medications Clopidogrel Bisulfate (plaVIX) 75 mg DAILY PO Last administered on 02/24/18 09:32; Admin Dose 75 MG; Start 02/23/18 at 09:00 Isosorbide Mononitrate (Imdur) 30 mg DAILY PO Last administered on 02/24/18 09:31; Admin Dose 30 MG; Start 02/22/18 at 23:30 Famotidine (Pepcid) 10 mg DAILY PO Last administered on 02/24/18 09:32; Admin Dose 10 MG; Start 02/23/18 at 09:00 Insulin Aspart (Novolog Insulin Pen) NOVOLOG *MILD* ALGORITHM WITH MEALS BEDTIME SC Last administered on 02/24/18 17:23; Admin Dose 4 UNIT; Start 02/23 at 08:00 Levothyroxine Sodium (Synthroid) 200 mcg DAILY@0700 PO Last administered on 02/24/18 06:30; Admin Dose 200 MCG; Start 02/23/18 at 07:00 Levothyroxine Sodium (Synthroid) 25 mcg DAILY@0700 PO Last administered on 02/24/18 06:30; Admin Dose 25 MCG; Start 02/23/18 at 07:00 Aspirin (Aspirin) 81 mg DAILY PO Last administered on 02/24/18 09:31; Admin Dose 81 MG; Start 02/23/18 at 09:00 Atorvastatin Calcium (Lipitor) 80 mg DAILY PO Last administered on 1/15/19at 09:32; Admin Dose 80 MG; Start 02/23/18 at 09:00 Amlodipine Besylate (Norvasc) 5 mg DAILY PO Last administered on 02/24/18at 09:31; Admin Dose 5 MG; Start 02/23/18 at 09:00 Hydralazine HCl (Apresoline) 50 mg Q8H PRN PO ELEVATED SYSTOLIC BP; Start 02/22/18 at 23:30 Heparin Sodium (Porcine) (Heparin (5000 Units/1ml)) 5,000 unit BID SC Last administered on 02/24/18at 09:44; Admin Dose 5,000 UNIT; Start 02/23/18 at 09:00 Albuterol/ Ipratropium (Duoneb) 3 ml Q6H RESP THERAPY PRN HHN sob; Start 02/22/18 at 23:30 Miscellaneous Information 1 ea NOTE XX ; Start 02/22/18 at 23:30 Glucose (Glutose) 15 gm Q15M PRN PO DECREASED GLUCOSE; Start 02/22/18 at 23:30 Glucose (Glutose) 22.5 gm Q15M PRN PO DECREASED GLUCOSE; Start 02/22/18 at 23:30 Dextrose (D50w Syringe) 25 ml Q15M PRN IV DECREASED GLUCOSE; Start 02/22/18 at 23:30 Dextrose (D50w Syringe) 50 ml Q15M PRN IV DECREASED GLUCOSE; Start 02/22/18 at 23:30 Glucagon (Glucagen) 1 mg Q15M PRN IM DECREASED GLUCOSE; Start 02/22/18 at 23:30 Glucose (Glutose) 15 gm Q15M PRN BUCCAL DECREASED GLUCOSE; Start 02/22/18 at 23:30 Morphine Sulfate (morphine) 3 mg Q4H PRN IV SEVERE PAIN LEVEL 7-10; Start 02/23/18 at 03:00 Multivit/Ca Carb/ B Cmplx/FA/Prenat (Rizwana-Rodolfo) 1 tab DAILY PO Last administered on 02/24/18at 09:32; Admin Dose 1 TAB; Start 02/23/18 at 09:00 Epoetin Geo (Epogen (Esrd)) 8,000 units AFTER DIALYSIS SC Last administered on 02/23/18at 17:40; Admin Dose 8,000 UNITS; Start 02/23/18 at 08:00 Tiotropium [place] (Spiriva) 1 inh DAILY INH Last administered on 02/24/18 09:48; Admin Dose 1 INH; Start 02/23/18 at 15:00 Fluticasone/ Vilanterol (Breo Ellipta 100-25 Mcg Inh) 1 inh DAILY INH Last administered on 02/24/18 09:48; Admin Dose 1 INH; Start 02/23/18 at 15:00 Cholecalciferol (Vitamin D) 2,000 unit DAILY PO Last administered on 02/24/18 09:32; Admin Dose 2,000 UNIT; Start 02/24/18 at 09:00 Calcitriol (Rocaltrol) 0.25 mcg AC BREAKFAST PO Last administered on 02/24/18 06:30; Admin Dose 0.25 MCG; Start 02/24/18 at 07:00 Sevelamer Carbonate (Renvela) 800 mg WITH MEALS PO Last administered on 02/24/18 17:19; Admin Dose 800 MG; Start 02/24/18 at 08:00 Metoprolol Tartrate (Lopressor) 50 mg Q12 PO ; Start 02/24/18 at 21:00 Azithromycin (Zithromax) 500 mg DAILY PO Last administered on 02/24/18at 09:33; Admin Dose 500 MG; Start 02/24/18 at 09:00; Stop 02/27/18 at 08:59 Morphine Sulfate (morphine) 6 mg Q4H PRN PO SEVERE PAIN LEVEL 7-10; Start 02/24/18 at 17:00 Heri Schaefer DO Feb 24, 2018 19:13
[2018-02-25] VITALS (24 sets, daily range): BP systolic 121–159; BP diastolic 45–71; PULSE 75–84; RESP 18–20
[2018-02-25] MEDS: morphine LIQ (10 MG/5 ML) CUP PO PRN (00:28)
[2018-02-25] MEDS: INSULIN ASPART [NOVOLOG] 3 ML PEN SC SCH ×5 (00:38→20:51)
[2018-02-25] MEDS: LEVOTHYROXINE 100 MCG TAB PO SCH (06:26)
[2018-02-25] MEDS: LEVOTHYROXINE 25 MCG TAB PO SCH (06:26)
[2018-02-25] MEDS: CALCITRIOL 0.25 MCG CAP PO SCH (06:27)
[2018-02-25] MEDS: TIOTROPIUM 18 MCG CAPSULE INHA DEV INH SCH (07:46)
[2018-02-25] MEDS: FLUTICASONE/VILANTEROL 100-25 INH SCH (07:46)
--- NOTE | 2018-02-25 07:58 | NUR ---
Try to get a hold of Dr. Krueger for Benadryl PRN for patient. Awaiting for call back.
[2018-02-25] MEDS: SEVELAMER CARBONATE 800 MG TABLET PO SCH ×3 (08:00→18:00)
[2018-02-25] MEDS ORDERED: DIPHENHYDRAMINE 50 MG INJ IV SCH (08:20)
--- NOTE | 2018-02-25 08:29 | PN ---
DATE: 02/25/2018 SUBJECTIVE: The patient is stable, no acute events overnight. No fevers, chills, nausea, vomiting. OBJECTIVE: VITAL SIGNS: Blood pressure is 135/62, pulse 79, respirations 20, temperature 97.7. HEENT: Head is normocephalic. NECK: Supple. HEART: Regular rate. LUNGS: Show diminished breath sounds at the base. ABDOMEN: Soft, nontender to palpation without rebound or guarding. EXTREMITIES: Negative for clubbing, cyanosis, no edema. DERMATOLOGIC: No rashes. MUSCULOSKELETAL: No joint effusion. NEUROLOGIC: No change in exam. MEDICATIONS: Reviewed. LABORATORY DATA: From 02/24/2018 has been reviewed. ASSESSMENT AND PLAN: 1. End-stage renal disease. The patient is scheduled for dialysis today. We will dialyze 3 hours 3 k bath, calcium 2.5, ultrafiltrate as tolerated. 2. Hyperkalemia, resolved. Continue dialysis on low potassium bath. 3. Volume overload, improved. Continue ultrafiltration with hemodialysis to maintain euvolemia. 4. Hypertension. Continue current blood pressure regimen. 5. Anemia. Continue Epogen. Monitor hemoglobin and hematocrit levels. 6. 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 Continue vitamin D analogs, continue ph os binders, monitor calcium and phosphorus levels. 7. Bronchitis. Continue current antibiotic regimen. Continue nebulizers. 8. Diabetes. Continue current insulin regimen. 9. Chest pain. Etiology is likely secondary to bronchitis. The patient was ruled out for acute cor onary syndrome. Continue to monitor. Dictated By: HARVEY BAIN/NTS Conf#: [id number] DID#: [id number] CC: CHEYENNE OSBORN MD;*EndCC*
--- NOTE | 2018-02-25 12:58 | PN ---
Date/Time of Note Date/Time of Note DATE: 02/25/18 TIME: 12:56 Assessment/Plan VTE Prophylaxis Risk score (from Nsg)>0 risk: 1 SCD applied (from Ns): No SCD contraindicated: low risk/ambulating Pharmacological prophylaxis: heparin Lines/Catheters IV Catheter Type (from Nrsg): Saline Lock Assessment/Plan Problems: (1) Chest pain Status: Resolved Comment: Resolved. Qualifiers: Chest pain type: unspecified Qualified Codes: R07.9 - Chest pain, unspecified (2) Acute bronchitis Status: Acute Comment: Persists and were working on this. Qualifiers: Bronchitis organism: unspecified organism Qualified Codes: J20.9 - Acute bronchitis, unspecified (3) DM (diabetes mellitus), type 2 Status: Chronic Comment: Adequate glycemic control though she did have a brief rise after the dosage of steroids Qualifiers: Diabetes mellitus shaker washer insulin use: with halfway use Diabetes mellitus complication status: with kidney complications Diabetes mellitus complication detail: with chronic kidney disease Chronic kidney disease stage: on chronic dialysis Qualified Codes: E11.22 - Type 2 diabetes mellitus with diabetic chronic kidney disease; N18.6 - End stage renal disease; Z79.4 - halfway (current) use of insulin; Z99.2 - Dependence on renal dialysis (4) End stage renal disease on dialysis due to type 2 diabetes mellitus Status: Chronic Comment: Continue with dialysis. Her major stumbling block for discharge is if we do not have the [employer] operational for the transportation and she will not be able to get to her dialysis which means that she will miss dialysis which means then she will need to be readmitted to the hospital. The family states that he turned in the papers yesterday (5) Hyperlipidemia Status: Chronic Comment: On treatment Qualifiers: Hyperlipidemia type: pure hypercholesterolemia Qualified Codes: E78.00 - Pure hypercholesterolemia, unspecified (6) Papillary thyroid carcinoma Onset Date: ~ 02/2013 Status: Chronic Comment: Thyroid hormone dosing is appropriate Result Diagram: 02/24/1851702/24/1818 Results 24hrs Laboratory Tests Test 02/24/18 17:06 02/24/18 21:31 02/25/18 00:34 02/25/18 06:24 Bedside Glucose 273 H 381 H 290 H 193 Test 02/25/18 07:43 02/25/18 11:26 Bedside Glucose 185 143 Subjective 24 Hr Interval Summary Free Text/Dictation Patient reports she still has her cough without significant change despite antibiotics and a dosage of IV steroids. Constitutional: no complaints Respiratory: cough Cardiovascular: no complaints Gastrointestinal: no complaints Genitourinary: no complaints Exam/Review of Systems Vital Signs Vitals Vital Signs Date Temp Pulse Resp B/P (MAP) Pulse Ox O2 O2 Flow FiO2 Time Delivery Rate 02/25/18 82 11:30 02/25/18 97.9 20 132/45 99 11:29 (74) 02/25/18 Room Air 10:48 02/24/18 21 21:30 Intake and Output 02/24/18 02/24/18 02/25/18 1515:00 23:00 07:00 IntakeIntake Total 600 ml 400 ml BalanceBalance 600 ml 400 ml Exam Constitutional: alert, oriented Respiratory: clear to auscultation, normal air movement Cardiovascular: regular rate and rhythm, nl pulses Medications Medications Current Medications Clopidogrel Bisulfate (plaVIX) 75 mg DAILY PO Last administered on 02/24/18 09:32; Admin Dose 75 MG; Start 02/23/18 at 09:00 Isosorbide Mononitrate (Imdur) 30 mg DAILY PO Last administered on 02/24/18 09:31; Admin Dose 30 MG; Start 02/22/18 at 23:30 Famotidine (Pepcid) 10 mg DAILY PO Last administered on 02/24/18 09:32; Admin Dose 10 MG; Start 02/23/18 at 09:00 Insulin Aspart (Novolog Insulin Pen) NOVOLOG *MILD* ALGORITHM WITH MEALS BEDTIME SC Last administered on 02/25/18at 11:33; Admin Dose 1 UNIT; Start 02/23/18 at 08:00 Levothyroxine Sodium (Synthroid) 200 mcg DAILY@0700 PO Last administered on 02/25/18 06:26; Admin Dose 200 MCG; Start 02/23/18 at 07:00 Levothyroxine Sodium (Synthroid) 25 mcg DAILY@0700 PO Last administered on 02/25/18 06:26; Admin Dose 25 MCG; Start 02/23/18 at 07:00 Aspirin (Aspirin) 81 mg DAILY PO Last administered on 02/24/18 09:31; Admin Do se 81 MG; Start 02/23/18 at 09:00 Atorvastatin Calcium (Lipitor) 80 mg DAILY PO Last administered on 02/24/18at 09:32; Admin Dose 80 MG; Start 02/23/18 at 09:00 Amlodipine Besylate (Norvasc) 5 mg DAILY PO Last administered on 02/24/18at 09:31; Admin Dose 5 MG; Start 02/23/18 at 09:00 Hydralazine HCl (Apresoline) 50 mg Q8H PRN PO ELEVATED SYSTOLIC BP; Start 02/22/18 at 23:30 Heparin Sodium (Porcine) (Heparin (5000 Units/1ml)) 5,000 unit BID SC Last administered on 02/24/18at 21:52; Admin Dose 5,000 UNIT; Start 02/23/18 at 09:00 Albuterol/ Ipratropium (Duoneb) 3 ml Q6H RESP THERAPY PRN HHN sob; Start 02/22/18 at 23:30 Miscellaneous Information 1 ea NOTE XX ; Start 02/22/18 at 23:30 Glucose (Glutose) 15 gm Q15M PRN PO DECREASED GLUCOSE; Start 02/22/18 at 23:30 Glucose (Glutose) 22.5 gm Q15M PRN PO DECREASED GLUCOSE; Start 02/22/18 at 23:30 Dextrose (D50w Syringe) 25 ml Q15M PRN IV DECREASED GLUCOSE; Start 02/22/18 at 23:30 Dextrose (D50w Syringe) 50 ml Q15M PRN IV DECREASED GLUCOSE; Start 02/22/18 at 23:30 Glucagon (Glucagen) 1 mg Q15M PRN IM DECREASED GLUCOSE; Start 02/22/18 at 23:30 Glucose (Glutose) 15 gm Q15M PRN BUCCAL DECREASED GLUCOSE; Start 02/22/18 at 23:30 Morphine Sulfate (morphine) 3 mg Q4H PRN IV SEVERE PAIN LEVEL 7-10; Start 02/23/18 at 03:00 Multivit/Ca Carb/ B Cmplx/FA/Prenat (Rizwana-Rodolfo) 1 tab DAILY PO Last administered on 02/24/18at 09:32; Admin Dose 1 TAB; Start 02/23/18 at 09:00 Epoetin Geo (Epogen (Esrd)) 8,000 units AFTER DIALYSIS SC Last administered on 02/23/18at 17:40; Admin Dose 8,000 UNITS; Start 02/23/18 at 08:00 Tiotropium [place] (Spiriva) 1 inh DAILY INH Last administered on 02/25/18 07:46; Admin Dose 1 INH; Start 02/23/18 at 15:00 Fluticasone/ Vilanterol (Breo Ellipta 100-25 Mcg Inh) 1 inh DAILY INH Last administered on 02/25/18 07:46; Admin Dose 1 INH; Start 02/23/18 at 15:00 Cholecalciferol (Vitamin D) 2,000 unit DAILY PO Last administered on 02/24/18 09:32; Admin Dose 2,000 UNIT; Start 02/24/18 at 09:00 Calcitriol (Rocaltrol) 0.25 mcg AC BREAKFAST PO Last administered on 02/25/18 06:27; Admin Dose 0.25 MCG; Start 02/24/18 at 07:00 Sevelamer Carbonate (Renvela) 800 mg WITH MEALS PO Last administered on 02/24/18 17:19; Admin Dose 800 MG; Start 02/24/18 at 08:00 Metoprolol Tartrate (Lopressor) 50 mg Q12 PO Last administered on 02/24/18 21:48; Admin Dose 50 MG; Start 02/24/18 at 21:00 Azithromycin (Zithromax) 500 mg DAILY PO Last administered on 02/24/18 09:33; Admin Dose 500 MG; Start 02/24/18 at 09:00; Stop 02/27/18 at 08:59 Morphine Sulfate (morphine) 6 mg Q4H PRN PO SEVERE PAIN LEVEL 7-10 Last a dministered on 02/25/18 00:28; Admin Dose 6 MG; Start 02/24/18 at 17:00 MARGARITO VIVAR MD Feb 25, 2018 12:58
[2018-02-25] MEDS: ATORVASTATIN 80 MG TAB PO SCH (13:43)
[2018-02-25] MEDS: ASPIRIN 81 MG TAB PO SCH (13:43)
[2018-02-25] MEDS: CLOPIDOGREL 75 MG TAB PO SCH (13:44)
[2018-02-25] MEDS: MULTIVIT/CA CARB/B CMPLX/FA TAB PO SCH (13:44)
[2018-02-25] MEDS: ISOSORBIDE MONONITRATE(SR)30 MG TAB PO SCH (13:44)
[2018-02-25] MEDS: AZITHROMYCIN 250 MG TAB PO SCH (13:44)
[2018-02-25] MEDS: CHOLECALCIFEROL 2,000 UNIT CAP PO SCH (13:44)
[2018-02-25] MEDS: FAMOTIDINE 20 MG TAB PO SCH (13:45)
[2018-02-25] MEDS: METOPROLOL 25 MG TAB PO SCH ×2 (13:45→20:44)
[2018-02-25] MEDS: AMLODIPINE 5 MG TAB PO SCH (13:45)
[2018-02-25] MEDS: HEPARIN 5,000 UNIT/1 ML VIAL SC SCH ×2 (13:51→20:50)
--- NOTE | 2018-02-25 18:26 | CONS ---
Date/Time of Note Date/Time of Note DATE: 02/25/18 TIME: 18:24 Assessment/Plan Assessment/Plan Assessment/Plan Possible bronchitis Chest pain with coughing End-stage renal disease on hemodialysis CAD with history of PCI History of hypertension Diabetes Dyslipidemia -Cough is improving and chest discomfort is improving. As mentioned serial cardiac enzymes have been negative and symptoms not appear cardiac in origin. -Patient with known history of coronary artery disease with chronic total occlusion of RCA, patient has been pending intervention to be done at [facility]. -We will continue anti-platelet therapy, tolerating higher dose beta-mariaelena, continue long-acting nitroglycerin as blood pressure tolerates. Result Diagram: 02/24/1818 02/24/1818 Results 24hrs Laboratory Tests Test 02/24/18 21:31 02/25/18 00:34 02/25/18 06:24 02/25/18 07:43 Bedside Glucose 381 H 290 H 193 185 Test 02/25/18 11:26 02/25/18 18:00 Bedside Glucose 143 95 Consultation Date/Type/Reason Admit Date/Time Feb 22, 2018 at 23:02 Initial Consult Date Type of Consult cv 24 HR Interval Summary Free Text/Dictation Patient feeling better, cough is less. Chest discomfort improving, denies current shortness of breath Exam/Review of Systems Vital Signs Vitals Vital Signs Date Temp Pulse Resp B/P (MAP) Pulse Ox O2 O2 Flow FiO2 Time Delivery Rate 02/25/18 75 16:00 02/25/18 98.3 20 130/71 98 15:09 (90) 02/25/18 Room Air 10:48 02/24/18 21 21:30 Intake and Output 02/24/18 02/24/18 02/25/18 1414:59 22:59 06:59 IntakeIntake Total 600 ml 400 ml BalanceBalance 600 ml 400 ml Exam Undergoing hemodialysis Constitutional: alert, oriented Head: normocephalic Respiratory: other (Coarse breath sounds bilaterally, no wheezing) Cardiovascular: regular rate and rhythm, other (S1-S2 heard) Gastrointestinal: soft, non-tender, bowel sounds Extremities: edema (Trace) Medications Medications Current Medications Clopidogrel Bisulfate (plaVIX) 75 mg DAILY PO Last administered on 02/25/18at 13:44; Admin Dose 75 MG; Start 02/23/18 at 09:00 Isosorbide Mononitrate (Imdur) 30 mg DAILY PO Last administered on 02/25/18 13:44; Admin Dose 30 MG; Start 02/22/18 at 23:30 Famotidine (Pepcid) 10 mg DAILY PO Last administered on 02/25/18 13:45; Admin Dose 10 MG; Start 02/23/18 at 09:00 Insulin Aspart (Novolog Insulin Pen) NOVOLOG *MILD* ALGORITHM WITH MEALS BEDTIME SC Last administered on 02/25/18 11:33; Admin Dose 1 UNIT; Start 02/23/18 at 08:00 Levothyroxine Sodium (Synthroid) 200 mcg DAILY@0700 PO Last administered on 06:26; Admin Dose 200 MCG; Start 02/23/18 at 07:00 Levothyroxine Sodium (Synthroid) 25 mcg DAILY@0700 PO Last administered on 02/25/18 06:26; Admin Dose 25 MCG; Start 02/23/18 at 07:00 Aspirin (Aspirin) 81 mg DAILY PO Last administered on 02/25/18 13:43; Admin Dose 81 MG; Start 02/23/18 at 09:00 Atorvastatin Calcium (Lipitor) 80 mg DAILY PO Last administered on 02/25/18 13:43; Admin Dose 80 MG; Start 02/23/18 at 09:00 Amlodipine Besylate (Norvasc) 5 mg DAILY PO Last administered on 02/25/18 13:45; Admin Dose 5 MG; Start 02/23/18 at 09:00 Hydralazine HCl (Apresoline) 50 mg Q8H PRN PO ELEVATED SYSTOLIC BP; Start 02/22/18 at 23:30 Heparin Sodium (Porcine) (Heparin (5000 Units/1ml)) 5,000 unit BID SC Last administered on 02/25/18 13:51; Admin Dose 5,000 UNIT; Start 02/23/18 at 09:00 Albuterol/ Ipratropium (Duoneb) 3 ml Q6H RESP THERAPY PRN HHN sob; Start 02/22/18 at 23:30 Miscellaneous Information 1 ea NOTE XX ; Start 02/22/18 at 23:30 Glucose (Glutose) 15 gm Q15M PRN PO DECREASED GLUCOSE; Start 02/22/18 at 23:30 Glucose (Glutose) 22.5 gm Q15M PRN PO DECREASED GLUCOSE; Start 02/22/18 at 23:30 Dextrose (D50w Syringe) 25 ml Q15M PRN IV DECREASED GLUCOSE; Start 02/22/18 at 23:30 Dextrose (D50w Syringe) 50 ml Q15M PRN IV DECREASED GLUCOSE; Start 02/22/18 at 23:30 Glucagon (Glucagen) 1 mg Q15M PRN IM DECREASED GLUCOSE; Start 02/22/18 at 23:30 Glucose (Glutose) 15 gm Q15M PRN BUCCAL DECREASED GLUCOSE; Start 02/22/18 at 23:30 Morphine Sulfate (morphine) 3 mg Q4H PRN IV SEVERE PAIN LEVEL 7-10; Start 02/23/18 at 03:00 Multivit/Ca Carb/ B Cmplx/FA/Prenat (Rizwana-Rodolfo) 1 tab DAILY PO Last administered on 02/25/18at 13:44; Admin Dose 1 TAB; Start 02/23/18 at 09:00 Epoetin Geo (Epogen (Esrd)) 8,000 units AFTER DIALYSIS SC Last administered on 02/23/18at 17:40; Admin Dose 8,000 UNITS; Start 02/23/18 at 08:00 Tiotropium [place] (Spiriva) 1 inh DAILY INH Last administered on 02/25/18 07:46; Admin Dose 1 INH; Start 02/23/18 at 15:00 Fluticasone/ Vilanterol (Breo Ellipta 100-25 Mcg Inh) 1 inh DAILY INH Last administered on 02/25/18at 07:46; Admin Dose 1 INH; Start 02/23/18 at 15:00 Cholecalciferol (Vitamin D) 2,000 unit DAILY PO Last administered on 02/25/18at 13:44; Admin Dose 2,000 UNIT; Start 02/24/18 at 09:00 Calcitriol (Rocaltrol) 0.25 mcg AC BREAKFAST PO Last administered on 02/25/18at 06:27; Admin Dose 0.25 MCG; Start 02/24/18 at 07:00 Sevelamer Carbonate (Renvela) 800 mg WITH MEALS PO Last administered on 02/24/18at 17:19; Admin Dose 800 MG; Start 02/24/18 at 08:00 Metoprolol Tartrate (Lopressor) 50 mg Q12 PO Last administered on 02/25/18at 13:45; Admin Dose 50 MG; Start 02/24/18 at 21:00 Azithromycin (Zithromax) 500 mg DAILY PO Last administered on 02/25/18at 13:44; Admin Dose 500 MG; Start 02/24/18 at 09:00; Stop 02/27/18 at 08:59 Morphine Sulfate (morphine) 6 mg Q4H PRN PO SEVERE PAIN LEVEL 7-10 Last administered on 02/25/18 00:28; Admin Dose 6 MG; Start 02/24/18 at 17:00 Heri Schaefer DO Feb 25, 2018 18:26
--- NOTE | 2018-02-25 18:59 | NUR ---
EOSS: Patient remain stable. No significant changes. VS within normal limits. BS within normal limits. Hourly rounding done. Assisted with ADL's care. Administered scheduled meds. PRN pain meds provided. HD done today 1L out. Will endorse plan of care to the next shift.
[2018-02-25] MEDS: DIPHENHYDRAMINE 50 MG INJ IV PRN (20:44)
[2018-02-26] VITALS (13 sets, daily range): BP systolic 118–146; BP diastolic 57–80; PULSE 73–91; RESP 18–20
--- NOTE | 2018-02-26 05:26 | NUR ---
PT A/O X4, AFEBRILE, REMAIN IN STABLE CONDITION DURING SHIFT. NO ACUTE CHANGES NOTED. VITAL SIGNS WITHIN NORMAL LIMITS. ALL SAFETY CARE AND COMFORT MEASURES ADDRESSED. WILL ENDORSE TO DAY SHIFT FOR CONTINUITY OF CARE.
--- NOTE | 2018-02-26 07:41 | NUR ---
conf#([id number]) for 02/27/18
[2018-02-26] MEDS: INSULIN ASPART [NOVOLOG] 3 ML PEN SC SCH ×4 (08:00→22:55)
[2018-02-26] MEDS: CALCITRIOL 0.25 MCG CAP PO SCH (08:42)
[2018-02-26] MEDS: CHOLECALCIFEROL 2,000 UNIT CAP PO SCH (08:43)
[2018-02-26] MEDS: MULTIVIT/CA CARB/B CMPLX/FA TAB PO SCH (08:43)
[2018-02-26] MEDS: AZITHROMYCIN 250 MG TAB PO SCH (08:43)
[2018-02-26] MEDS: ATORVASTATIN 80 MG TAB PO SCH (08:43)
[2018-02-26] MEDS: ASPIRIN 81 MG TAB PO SCH (08:43)
[2018-02-26] MEDS: ISOSORBIDE MONONITRATE(SR)30 MG TAB PO SCH (08:43)
[2018-02-26] MEDS: CLOPIDOGREL 75 MG TAB PO SCH (08:44)
[2018-02-26] MEDS: METOPROLOL 25 MG TAB PO SCH ×2 (08:44→21:42)
[2018-02-26] MEDS: SEVELAMER CARBONATE 800 MG TABLET PO SCH ×3 (08:44→18:00)
[2018-02-26] MEDS: AMLODIPINE 5 MG TAB PO SCH (08:45)
[2018-02-26] MEDS: HEPARIN 5,000 UNIT/1 ML VIAL SC SCH ×2 (08:46→21:52)
[2018-02-26] MEDS: LEVOTHYROXINE 100 MCG TAB PO SCH (08:50)
[2018-02-26] MEDS: LEVOTHYROXINE 25 MCG TAB PO SCH (08:50)
[2018-02-26] MEDS: TIOTROPIUM 18 MCG CAPSULE INHA DEV INH SCH (08:50)
[2018-02-26] MEDS: FAMOTIDINE 20 MG TAB PO SCH (08:50)
[2018-02-26] MEDS: FLUTICASONE/VILANTEROL 100-25 INH SCH (08:50)
--- NOTE | 2018-02-26 09:50 | PN ---
DATE: 02/26/2018 SUBJECTIVE: The patient is stable, no events overnight. The patient had hemodialysis yesterday, karma erated well. OBJECTIVE: VITAL SIGNS: Blood pressure is 120/58, respirations 20, pulse 73, temperature 98.2. HEENT: Head is normocephalic. NECK: Supple. HEART: Regular rate. LUNGS: Show diminished breath sounds at base. ABDOMEN: Soft, nontender to palpation without rebound or guarding. EXTREMITIES: Negative for clubbing, cyanosis, no edema. DERMATOLOGIC: No rashes. MUSCULOSKELETAL: No joint effusion. NEUROLOGIC: No change in exam. MEDICATIONS: Reviewed. LABORATORY DATA: Shows sodium 140, potassium 4.5, BUN 31, creatinine 5.93 phosphorus 6.6. White cou nt 4.3, hemoglobin 10.3, platelet count is 161. ASSESSMENT AND PLAN: 1. End-stage renal disease. The patient had hemodialysis yesterday, tolerated well, will plan for d ialysis tomorrow. 2. Hyperkalemia, improving. Continue dialysis on a low potassium bath. Continue renal diet. 3. Volume overload, improved. Continue ultrafiltration with hemodialysis. 4. Hypertension. Continue current blood pressure regimen. 5. Anemia. Continue Epogen. 6. 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 Continue vitamin D analogs, phosphate b inders, monitor calcium and phosphorus levels. 7. Bronchitis, improving. Continue medical management. 8. Diabetes. Continue current insulin regimen. 9. Chest pain, resolved. Dictated By: HARVEY LUCIO DO NR/NTS Conf#: [id number] DID#: [id number] CC: CHEYENNE OSBORN MD;*EndCC*
[2018-02-26] MEDS: morphine 4 MG/ML VIAL IV PRN ×2 (12:01→21:59)
--- NOTE | 2018-02-26 12:59 | PN ---
Date/Time of Note Date/Time of Note DATE: 02/26/18 TIME: 12:56 Assessment/Plan VTE Prophylaxis Risk score (from Ns)>0 risk: 1 SCD applied (from Ns): No SCD contraindicated: low risk/ambulating Pharmacological prophylaxis: heparin Lines/Catheters IV [facility]from [facility] Saline Lock Assessment/Plan Problems: (1) Acute bronchitis Status: Acute Comment: Despite inhaler therapy, course of steroids, and azithromycin her cough persists and according to the patient is unchanged. Transition over to quinolone briefly. Dose adjusted for renal failure. This could be managed as an outpatient Qualifiers: Bronchitis organism: unspecified organism Qualified Codes: J20.9 - Acute bronchitis, unspecified (2) End stage renal disease on dialysis due to type 2 diabetes mellitus Status: Chronic Comment: She remains on dialysis as per nephrology. This is a major stumbling block in the discharge planning process. If we discharge her without having her [facility] in place to supply the transportation to and from dialysis then she is going to miss dialysis again and then come in the emergency room with renal issues due to having missed dialysis. 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 Diabetes mellitus complication status: with kidney complications Diabetes mellitus complication detail: with chronic kidney disease Chronic kidney disease stage: on chronic dialysis Qualified Codes: E11.22 - Type 2 diabetes mellitus with diabetic chronic kidney disease; N18.6 - End stage renal disease; Z79.4 - USP (current) use of insulin; Z99.2 - Dependence on renal dialysis (4) Papillary thyroid carcinoma Onset Date: ~ 02/2013 Status: Chronic Comment: Stable on thyroid hormone therapy, no evidence of recurrence (5) Hyperlipidemia Status: Chronic Qualifiers: Hyperlipidemia type: pure hypercholesterolemia Qualified Codes: E78.00 - Pure hypercholesterolemia, unspecified (6) Atherosclerotic heart disease of [place] coronary artery without angina pectoris Status: Chronic Comment: Presently stable on higher dose beta-blockade. Please note I do not believe the beta-mariaelena is inducing the cough in this individual patient Qualifiers: [place] vs. transplanted heart: [place] heart Qualified Codes: I25.10 - Atherosclerotic heart disease of [place] coronary artery without angina pectoris (7) Major depressive disorder, single episode, severe without psychotic features Status: Chronic Comment: Noted and on treatment Result Diagram: 02/26/18 0508 02/26/18 0508 Results 24hrs Laboratory Tests Test 02/25/18 18:00 02/25/18 20:36 02/26/18 05:08 02/26/18 08:07 Bedside Glucose 95 158 110 White Blood Count 4.3 L Red Blood Count 3.57 L Hemoglobin 10.3 L Hematocrit 33.8 L Mean Corpuscular 94.7 Volume Mean Corpuscular 28.9 L Hemoglobin Mean Corpuscular 30.5 L Hemoglobin Concent Red Cell 19.8 H Distribution Width Platelet Count 161 Mean Platelet Volume 11.9 H Immature 0.200 Granulocytes % Neutrophils % 39.9 Lymphocytes % 48.0 Monocytes % 9.1 Eosinophils % 2.1 Basophils % 0.7 Nucleated Red Blood 0.5 H Cells % Immature 0.010 Granulocytes # Neutrophils # 1.7 Lymphocytes # 2.1 Monocytes # 0.4 Eosinophils # 0.1 Basophils # 0.0 Nucleated Red Blood 0.0 Cells # Sodium Level 140 Potassium Level 4.5 Chloride Level 97 Carbon Dioxide Level 27 Anion Gap 16 H Blood Urea Nitrogen 31 #H Creatinine 5.93 H Est Glomerular 9 L Filtrat Rate mL/min Glucose Level 134 Calcium Level 9.7 Phosphorus Level 6.6 H Magnesium Level 2.2 Total Bilirubin 0.3 Direct Bilirubin 0.00 Indirect Bilirubin 0.3 Aspartate Amino 44 Transf (AST/SGOT) Alanine 58 Aminotransferase (AL T/SGPT) Alkaline Phosphatase 242 H Total Protein 7.5 Albumin 3.9 Globulin 3.60 H Albumin/Globulin 1.08 Ratio Test 02/26/18 11:51 Bedside Glucose 95 Subjective 24 Hr Interval Summary Free Text/Dictation Patient very specifically informs me that her cough is identical to the time of admission no better no worse no change Constitutional: no complaints Respiratory: no complaints Cardiovascular: no complaints Gastrointestinal: no complaints Genitourinary: no complaints Exam/Review of Systems Vital Signs Vitals Vital Signs Date Temp Pulse Resp B/P (MAP) Pulse Ox O2 O2 Flow FiO2 Time Delivery Rate 02/26/18 97.4 79 18 146/80 97 Room Air 11:28 (102) 02/26/18 21 10:40 Intake and Output 02/25/18 02/25/18 02/26/18 1515:00 23:00 07:00 IntakeIntake Total 650 ml 600 ml OutputOutput Total 400 ml BalanceBalance -400 ml 650 ml 600 ml Exam Constitutional: alert, oriented Neck: supple, non-tender Respiratory: clear to auscultation, normal air movement, other (Dull at bases. No wheezing on forced expiratory maneuver) Cardiovascular: regular rate and rhythm, nl pulses Medications Medications Current Medications Clopidogrel Bisulfate (plaVIX) 75 mg DAILY PO Last administered on 02/26/18 08:44; Admin Dose 75 MG; Start 02/23/18 at 09:00 Isosorbide Mononitrate (Imdur) 30 mg DAILY PO Last administered on 02/26/18 08:43; Admin Dose 30 MG; Start 02/22/18 at 23:30 Famotidine (Pepcid) 10 mg DAILY PO Last administered on 02/26/18 08:50; Admin Dose 10 MG; Start 02/23/18 at 09:00 Insulin Aspart (Novolog Insulin Pen) NOVOLOG *MILD* ALGORITHM WITH MEALS BEDTIME SC Last administered on 02/25/18 11:33; Admin Dose 1 UNIT; Start 02/23/18 at 08:00 Levothyroxine Sodium (Synthroid) 200 mcg DAILY@0700 PO Last administered on 02/26/18 08:50; Admin Dose 200 MCG; Start 02/23/18 at 07:00 Levothyroxine Sodium (Synthroid) 25 mcg DAILY@0700 PO Last administered on 02/26/18 08:50; Admin Dose 25 MCG; Start 02/23/18 at 07:00 Aspirin (Aspirin) 81 mg DAILY PO Last administered on 02/26/18 08:43; Admin Dose 81 MG; Start 02/23/18 at 09:00 Atorvastatin Calcium (Lipitor) 80 mg DAILY PO Last administered on 02/26/18 08:43; Admin Dose 80 MG; Start 02/23/18 at 09:00 Amlodipine Besylate (Norvasc) 5 mg DAILY PO Last administered on 02/26/18 08:45; Admin Dose 5 MG; Start 02/23/18 at 09:00 Hydralazine HCl (Apresoline) 50 mg Q8H PRN PO ELEVATED SYSTOLIC BP; Start 02/22/18 at 23:30 Heparin Sodium (Porcine) (Heparin (5000 Units/1ml)) 5,000 unit BID SC Last administered on 02/26/18at 08:46; Admin Dose 5,000 UNIT; Start 02/23/18 at 09:00 Albuterol/ Ipratropium (Duoneb) 3 ml Q6H RESP THERAPY PRN HHN sob; Start 02/22/18 at 23:30 Miscellaneous Information 1 ea NOTE XX ; Start 02/22/18 at 23:30 Glucose (Glutose) 15 gm Q15M PRN PO DECREASED GLUCOSE; Start 02/22/18 at 23:30 Glucose (Glutose) 22.5 gm Q15M PRN PO DECREASED GLUCOSE; Start 02/22/18 at 23:30 Dextrose (D50w Syringe) 25 ml Q15M PRN IV DECREASED GLUCOSE; Start 02/22/18 at 23:30 Dextrose (D50w Syringe) 50 ml Q15M PRN IV DECREASED GLUCOSE; Start 02/22/18 at 23:30 Glucagon (Glucagen) 1 mg Q15M PRN IM DECREASED GLUCOSE; Start 02/22/18 at 23:30 Glucose (Glutose) 15 gm Q15M PRN BUCCAL DECREASED GLUCOSE; Start 02/22/18 at 23:30 Morphine Sulfate (morphine) 3 mg Q4H PRN IV SEVERE PAIN LEVEL 7-10 Last ad ministered on 02/26/18at 12:01; Admin Dose 3 MG; Start 02/23/18 at 03:00 Multivit/Ca Carb/ B Cmplx/FA/Prenat (Rizwana-Rodolfo) 1 tab DAILY PO Last administered on 02/26/18at 08:43; Admin Dose 1 TAB; Start 02/23/18 at 09:00 Epoetin Geo (Epogen (Esrd)) 8,000 units AFTER DIALYSIS SC Last administered on 02/23/18at 17:40; Admin Dose 8,000 UNITS; Start 02/23/18 at 08:00 Tiotropium [place] (Spiriva) 1 inh DAILY INH Last administered on 02/26/18at 08:50; Admin Dose 1 INH; Start 02/23/18 at 15:00 Fluticasone/ Vilanterol (Breo Ellipta 100-25 Mcg Inh) 1 inh DAILY INH Last administered on 02/26/18at 08:50; Admin Dose 1 INH; Start 02/23/18 at 15:00 Cholecalciferol (Vitamin D) 2,000 unit DAILY PO Last administered on 02/26/18 08:43; Admin Dose 2,000 UNIT; Start 02/24/18 at 09:00 Calcitriol (Rocaltrol) 0.25 mcg AC BREAKFAST PO Last administered on 02/26/18 08:42; Admin Dose 0.25 MCG; Start 02/24/18 at 07:00 Sevelamer Carbonate (Renvela) 800 mg WITH MEALS PO Last administered on 02/26/18 12:00; Admin Dose 800 MG; Start 02/24/18 at 08:00 Metoprolol Tartrate (Lopressor) 50 mg Q12 PO Last administered on 02/26/18 08:44; Admin Dose 50 MG; Start 02/24/18 at 21:00 Azithromycin (Zithromax) 500 mg DAILY PO Last administered on 02/26/18 08:43; Admin Dose 500 MG; Start 02/24/18 at 09:00; Stop 02/27/18 at 08:59 Morphine Sulfate (morphine) 6 mg Q4H PRN PO SEVERE PAIN LEVEL 7-10 Last administered on 02/25/18 00:28; Admin Dose 6 MG; Start 02/24/18 at 17:00 Diphenhydramine HCl (Benadryl) 25 mg Q8H PRN IV PRURITUS Last administered on 02/25/18 20:44; Admin Dose 25 MG; Start 02/25/18 at 20:00 MARGARITO VIVAR MD Feb 26, 2018 12:59
--- NOTE | 2018-02-26 15:26 | CONS ---
Date/Time of Note Date/Time of Note DATE: 02/26/18 TIME: 15:25 Assessment/Plan Assessment/Plan Assessment/Plan Possible bronchitis Chest pain with coughing End-stage renal disease on hemodialysis CAD with history of PCI History of hypertension Diabetes Dyslipidemia -Cough is improving and chest discomfort is improving. As mentioned serial cardiac enzymes have been negative and symptoms not appear cardiac in origin. -Patient with known history of coronary artery disease with chronic total occlusion of RCA, patient has been pending intervention to be done at [facility]. -We will continue anti-platelet therapy, beta-mariaelena as heart rate and blood pressure permits, continue long-acting nitroglycerin as blood pressure tolerates. Result Diagram: 02/26/18 0508 02/26/18 0508 Results 24hrs Laboratory Tests Test 02/25/18 18:00 02/25/18 20:36 02/26/18 05:08 02/26/18 08:07 Bedside Glucose 95 158 110 White Blood Count 4.3 L Red Blood Count 3.57 L Hemoglobin 10.3 L Hematocrit 33.8 L Mean Corpuscular 94.7 Volume Mean Corpuscular 28.9 L Hemoglobin Mean Corpuscular 30.5 L Hemoglobin Concent Red Cell 19.8 H Distribution Width Platelet Count 161 Mean Platelet Volume 11.9 H Immature 0.200 Granulocytes % Neutrophils % 39.9 Lymphocytes % 48.0 Monocytes % 9.1 Eosinophils % 2.1 Basophils % 0.7 Nucleated Red Blood 0.5 H Cells % Immature 0.010 Granulocytes # Neutrophils # 1.7 Lymphocytes # 2.1 Monocytes # 0.4 Eosinophils # 0.1 Basophils # 0.0 Nucleated Red Blood 0.0 Cells # Sodium Level 140 Potassium Level 4.5 Chloride Level 97 Carbon Dioxide Level 27 Anion Gap 16 H Blood Urea Nitrogen 31 #H Creatinine 5.93 H Est Glomerular 9 L Filtrat Rate mL/min Glucose Level 134 Calcium Level 9.7 Phosphorus Level 6.6 H Magnesium Level 2.2 Total Bilirubin 0.3 Direct Bilirubin 0.00 Indirect Bilirubin 0.3 Aspartate Amino 44 Transf (AST/SGOT) Alanine 58 Aminotransferase (AL T/SGPT) Alkaline Phosphatase 242 H Total Protein 7.5 Albumin 3.9 Globulin 3.60 H Albumin/Globulin 1.08 Ratio Test 02/26/18 11:51 Bedside Glucose 95 Consultation Date/Type/Reason Admit Date/Time Feb 22, 2018 at 23:02 Initial Consult Date Type of Consult cv 24 HR Interval Summary Free Text/Dictation Denies shortness of breath with ambulating. Chest wall discomfort is improving, still with cough Exam/Review of Systems Vital Signs Vitals Vital Signs Date Temp Pulse Resp B/P (MAP) Pulse Ox O2 O2 Flow FiO2 Time Delivery Rate 02/26/18 76 12:00 02/26/18 97.4 18 146/80 97 Room Air 11:28 (102) 02/26/18 21 10:40 Intake and Output 02/25/18 02/25/18 02/26/18 1515:00 23:00 07:00 IntakeIntake Total 650 ml 600 ml OutputOutput Total 400 ml BalanceBalance -400 ml 650 ml 600 ml Exam No apparent distress Constitutional: alert, oriented Head: normocephalic Respiratory: other (Coarse breath sounds bilaterally, no wheezing) Cardiovascular: regular rate and rhythm, other (S1-S2 heard) Gastrointestinal: soft, non-tender, bowel sounds Extremities: edema Medications Medications Current Medications Clopidogrel Bisulfate (plaVIX) 75 mg DAILY PO Last administered on 02/26/18 08:44; Admin Dose 75 MG; Start 02/23/18 at 09:00 Isosorbide Mononitrate (Imdur) 30 mg DAILY PO Last administered on 02/26/18 08:43; Admin Dose 30 MG; Start 02/22/18 at 23:30 Famotidine (Pepcid) 10 mg DAILY PO Last administered on 02/26/18 08:50; Admin Dose 10 MG; Start 02/23/18 at 09:00 Insulin Aspart (Novolog Insulin Pen) NOVOLOG *MILD* ALGORITHM WITH MEALS BEDTIME SC Last administered on 02/25/18at 11:33; Admin Dose 1 UNIT; Start 02/23/18 at 08:00 Levothyroxine Sodium (Synthroid) 200 mcg DAILY@0700 PO Last administered on 02/26/18 08:50; Admin Dose 200 MCG; Start 02/23/18 at 07:00 Levothyroxine Sodium (Synthroid) 25 mcg DAILY@0700 PO Last administered on 02/26/18at 08:50; Admin Dose 25 MCG; Start 02/23/18 at 07:00 Aspirin (Aspirin) 81 mg DAILY PO Last administered on 02/26/18at 08:43; Admin Dose 81 MG; Start 02/23/18 at 09:00 Atorvastatin Calcium (Lipitor) 80 mg DAILY PO Last administered on 02/26/18at 08:43; Admin Dose 80 MG; Start 02/23/18 at 09:00 Amlodipine Besylate (Norvasc) 5 mg DAILY PO Last administered on 02/26/18at 08:45; Admin Dose 5 MG; Start 02/23/18 at 09:00 Hydralazine HCl (Apresoline) 50 mg Q8H PRN PO ELEVATED SYSTOLIC BP; Start 02/22/18 at 23:30 Heparin Sodium (Porcine) (Heparin (5000 Units/1ml)) 5,000 unit BID SC Last administered on 02/26/18at 08:46; Admin Dose 5,000 UNIT; Start 02/23/18 at 09:00 Albuterol/ Ipratropium (Duoneb) 3 ml Q6H RESP THERAPY PRN HHN sob; Start 02/22/18 at 23:30 Miscellaneous Information 1 ea NOTE XX ; Start 02/22/18 at 23:30 Glucose (Glutose) 15 gm Q15M PRN PO DECREASED GLUCOSE; Start 02/22/18 at 23:30 Glucose (Glutose) 22.5 gm Q15M PRN PO DECREASED GLUCOSE; Start 02/22/18 at 23:30 Dextrose (D50w Syringe) 25 ml Q15M PRN IV DECREASED GLUCOSE; Start 02/22/18 at 23:30 Dextrose (D50w Syringe) 50 ml Q15M PRN IV DECREASED GLUCOSE; Start 02/22/18 at 23:30 Glucagon (Glucagen) 1 mg Q15M PRN IM DECREASED GLUCOSE; Start 02/22/18 at 23:30 Glucose (Glutose) 15 gm Q15M PRN BUCCAL DECREASED GLUCOSE; Start 02/22/18 at 23:30 Morphine Sulfate (morphine) 3 mg Q4H PRN IV SEVERE PAIN LEVEL 7-10 Last administered on 02/26/18at 12:01; Admin Dose 3 MG; Start 02/23/18 at 03:00 Multivit/Ca Carb/ B Cmplx/FA/Prenat (Rizwana-Rodolfo) 1 tab DAILY PO Last administered on 02/26/18at 08:43; Admin Dose 1 TAB; Start 02/23/18 at 09:00 Epoetin Geo (Epogen (Esrd)) 8,000 units AFTER DIALYSIS SC Last administered on 02/23/18 17:40; Admin Dose 8,000 UNITS; Start 02/23/18 at 08:00 Tiotropium [place] (Spiriva) 1 inh DAILY INH Last administered on 02/26/18 08:50; Admin Dose 1 INH; Start 02/23/18 at 15:00 Fluticasone/ Vilanterol (Breo Ellipta 100-25 Mcg Inh) 1 inh DAILY INH Last administered on 02/26/18 08:50; Admin Dose 1 INH; Start 02/23/18 at 15:00 Cholecalciferol (Vitamin D) 2,000 unit DAILY PO Last administered on 02/26/18 08:43; Admin Dose 2,000 UNIT; Start 02/24/18 at 09:00 Calcitriol (Rocaltrol) 0.25 mcg AC BREAKFAST PO Last administered on 02/26/18 08:42; Admin Dose 0.25 MCG; Start 02/24/18 at 07:00 Sevelamer Carbonate (Renvela) 800 mg WITH MEALS PO Last administered on 12:00; Admin Dose 800 MG; Start 02/24/18 at 08:00 Metoprolol Tartrate (Lopressor) 50 mg Q12 PO Last administered on 02/26/18 08:44; Admin Dose 50 MG; Start 02/24/18 at 21:00 Azithromycin (Zithromax) 500 mg DAILY PO Last administered on 02/26/18 08:43; Admin Dose 500 MG; Start 02/24/18 at 09:00; Stop 02/27/18 at 08:59 Morphine Sulfate (morphine) 6 mg Q4H PRN PO SEVERE PAIN LEVEL 7-10 Last administered on 02/25/18 00:28; Admin Dose 6 MG; Start 02/24/18 at 17:00 Diphenhydramine HCl (Benadryl) 25 mg Q8H PRN IV PRURITUS Last administered on 02/25/18 20:44; Admin Dose 25 MG; Start 02/25/18 at 20:00 Levofloxacin (Levaquin) 250 mg DAILY@06 PO ; Start 02/27/18 at 06:00; Stop 03/04/18 at 05:59 Heri Schaefer DO Feb 26, 2018 15:26
[2018-02-27] VITALS (27 sets, daily range): BP systolic 121–144; BP diastolic 56–88; PULSE 67–95; RESP 17–18
--- NOTE | 2018-02-27 05:46 | NUR ---
EOSS. Patient alert and oriented x 4, no acute distress noted over night, stable vs. Plan for hemodialysis today.
[2018-02-27] MEDS: LEVOTHYROXINE 100 MCG TAB PO SCH (06:17)
[2018-02-27] MEDS: LEVOTHYROXINE 25 MCG TAB PO SCH (06:17)
[2018-02-27] MEDS: CALCITRIOL 0.25 MCG CAP PO SCH (06:17)
[2018-02-27] MEDS: LEVOFLOXACIN 250 MG TAB PO SCH (06:17)
[2018-02-27] MEDS: INSULIN ASPART [NOVOLOG] 3 ML PEN SC SCH ×4 (08:00→21:00)
--- NOTE | 2018-02-27 08:20 | PN ---
DATE: 02/27/2018 SUBJECTIVE: The patient is stable, no events overnight. No fevers, chills, nausea, vomiting. OBJECTIVE: VITAL SIGNS: Blood pressure is 146/80, pulse 79, respiration 18, temperature 98.2. HEENT: Head is normocephalic. NECK: Supple. HEART: Regular rate. LUNGS: Show diminished breath sounds at the base. ABDOMEN: Soft, nontender to palpation. No rebound or guarding. EXTREMITIES: Negative for clubbing, cyanosis. No edema. DERMATOLOGIC: No rashes. MUSCULOSKELETAL: No joint effusions. NEUROLOGIC: No change in exam. MEDICATIONS: The patient's medications have been reviewed. LABORATORY DATA: Shows a white count 4.3, hemoglobin 10.3, platelet count 161. Patient's BMP from 0 02/26/2018 was reviewed. ASSESSMENT AND PLAN: 1. End-stage renal disease. The patient is scheduled for dialysis today. We will dialyze 3 hours 3 k bath, calcium 2.5, ultra filtrate as tolerated. 2. Hyperkalemia, improved. Continue dialysis and low potassium bath. 3. Volume overload, improving. Continue ultra filtration dialysis. 4. Hypertension. Continue current blood pressure regimen. 5. Anemia. Continue to monitor hemoglobin and hematocrit levels. Continue Epogen. 6. 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 Continue vitamin D analogs and phosphat e binders, monitor calcium and phosphorus levels. 7. Bronchitis, improving. Continue medical management. 8. Diabetes. Continue insulin regimen. 9. Coronary artery disease. Continue medical management. Dictated By: HRAVEY LUCIO DO NR/NTS Conf#: [id number] DID#: [id number] CC: CHEYENNE OSBORN MD;*EndCC*
[2018-02-27] MEDS: CLOPIDOGREL 75 MG TAB PO SCH (08:45)
[2018-02-27] MEDS: FAMOTIDINE 20 MG TAB PO SCH (08:45)
[2018-02-27] MEDS: ATORVASTATIN 80 MG TAB PO SCH (08:45)
[2018-02-27] MEDS: MULTIVIT/CA CARB/B CMPLX/FA TAB PO SCH (08:45)
[2018-02-27] MEDS: AMLODIPINE 5 MG TAB PO SCH (08:46)
[2018-02-27] MEDS: ISOSORBIDE MONONITRATE(SR)30 MG TAB PO SCH (08:46)
[2018-02-27] MEDS: SEVELAMER CARBONATE 800 MG TABLET PO SCH ×3 (08:46→18:05)
[2018-02-27] MEDS: CHOLECALCIFEROL 2,000 UNIT CAP PO SCH (08:46)
[2018-02-27] MEDS: ASPIRIN 81 MG TAB PO SCH (08:46)
[2018-02-27] MEDS: TIOTROPIUM 18 MCG CAPSULE INHA DEV INH SCH (08:47)
[2018-02-27] MEDS: FLUTICASONE/VILANTEROL 100-25 INH SCH (08:47)
[2018-02-27] MEDS: METOPROLOL 25 MG TAB PO SCH ×2 (08:49→21:37)
[2018-02-27] MEDS: HEPARIN 5,000 UNIT/1 ML VIAL SC SCH ×2 (08:57→21:49)
[2018-02-27] MEDS: DIPHENHYDRAMINE 50 MG INJ IV PRN ×2 (12:06→21:37)
--- NOTE | 2018-02-27 12:36 | CONS ---
Date/Time of Note Date/Time of Note DATE: 02/27/18 TIME: 12:34 Assessment/Plan Assessment/Plan Assessment/Plan Possible bronchitis Chest pain with coughing End-stage renal disease on hemodialysis CAD with history of PCI History of hypertension Diabetes Dyslipidemia -Cough is improving and chest discomfort is improving. As mentioned serial cardiac enzymes have been negative and symptoms do not appear cardiac in origin. -Patient with known history of coronary artery disease with chronic total occlusion of RCA, patient has been pending intervention to be done at [facility]. -We will continue anti-platelet therapy, beta-mariaelena as heart rate and blood pressure permits, continue long-acting nitroglycerin as blood pressure tolerates. Result Diagram: 02/26/18 0508 02/26/18 0508 Results 24hrs Laboratory Tests Test 02/26/18 18:10 02/26/18 22:04 02/27/18 07:42 02/27/18 11:52 Bedside Glucose 155 110 96 85 Consultation Date/Type/Reason Admit Date/Time Feb 22, 2018 at 23:02 Initial Consult Date Type of Consult cv 24 HR Interval Summary Free Text/Dictation Chest discomfort almost resolved, cough is getting better. Denies shortness of breath Exam/Review of Systems Vital Signs Vitals Vital Signs Date Temp Pulse Resp B/P (MAP) Pulse Ox O2 O2 Flow FiO2 Time Delivery Rate 02/27/18 97.6 71 18 128/60 95 Room Air 11:30 (82) 02/26/18 21 10:40 Intake and Output 02/26/18 02/26/18 02/27/18 1515:00 23:00 07:00 IntakeIntake Total 620 ml 460 ml BalanceBalance 620 ml 460 ml Exam Undergoing hemodialysis Constitutional: alert, oriented Head: normocephalic Respiratory: other (Coarse breath sounds bilaterally, no wheezing) Cardiovascular: regular rate and rhythm, other (S1-S2 heard) Gastrointestinal: soft, non-tender, bowel sounds Extremities: edema Medications Medications Current Medications Clopidogrel Bisulfate (plaVIX) 75 mg DAILY PO Last administered on 02/27/18at 08:45; Admin Dose 75 MG; Start 02/23/18 at 09:00 Isosorbide Mononitrate (Imdur) 30 mg DAILY PO Last administered on 02/27/18at 08:46; Admin Dose 30 MG; Start 02/22/18 at 23:30 Famotidine (Pepcid) 10 mg DAILY PO Last administered on 02/27/18at 08:45; Admin Dose 10 MG; Start 02/23/18 at 09:00 Insulin Aspart (Novolog Insulin Pen) NOVOLOG *MILD* ALGORITHM WITH MEALS BEDTIME SC Last administered on 02/26/18at 18:15; Admin Dose 1 UNIT; Start 02/23/18 at 08:00 Levothyroxine Sodium (Synthroid) 200 mcg DAILY@0700 PO Last administered on 02/27/18at 06:17; Admin Dose 200 MCG; Start 02/23/18 at 07:00 Levothyroxine Sodium (Synthroid) 25 mcg DAILY@0700 PO Last administered on 02/27/18at 06:17; Admin Dose 25 MCG; Start 02/23/18 at 07:00 Aspirin (Aspirin) 81 mg DAILY PO Last administered on 02/27/18at 08:46; Admin Dose 81 MG; Start 02/23/18 at 09:00 Atorvastatin Calcium (Lipitor) 80 mg DAILY PO Last administered on 02/27/18at 08:45; Admin Dose 80 MG; Start 02/23/18 at 09:00 Amlodipine Besylate (Norvasc) 5 mg DAILY PO Last administered on 02/27/18at 08:46; Admin Dose 5 MG; Start 02/23/18 at 09:00 Hydralazine HCl (Apresoline) 50 mg Q8H PRN PO ELEVATED SYSTOLIC BP; Start 02/22/18 at 23:30 Heparin Sodium (Porcine) (Heparin (5000 Units/1ml)) 5,000 unit BID SC Last administered on 02/27/18at 08:57; Admin Dose 5,000 UNIT; Start 02/23/18 at 09:00 Albuterol/ Ipratropium (Duoneb) 3 ml Q6H RESP THERAPY PRN HHN sob; Start 02/22/18 at 23:30 Miscellaneous Information 1 ea NOTE XX ; Start 02/22/18 at 23:30 Glucose (Glutose) 15 gm Q15M PRN PO DECREASED GLUCOSE; Start 02/22/18 at 23:30 Glucose (Glutose) 22.5 gm Q15M PRN PO DECREASED GLUCOSE; Start 02/22/18 at 23: 30 Dextrose (D50w Syringe) 25 ml Q15M PRN IV DECREASED GLUCOSE; Start 02/22/18 at 23:30 Dextrose (D50w Syringe) 50 ml Q15M PRN IV DECREASED GLUCOSE; Start 02/22/18 at 23:30 Glucagon (Glucagen) 1 mg Q15M PRN IM DECREASED GLUCOSE; Start 02/22/18 at 23:30 Glucose (Glutose) 15 gm Q15M PRN BUCCAL DECREASED GLUCOSE; Start 02/22/18 at 23:30 Morphine Sulfate (morphine) 3 mg Q4H PRN IV SEVERE PAIN LEVEL 7-10 Last administered on 02/26/18 21:59; Admin Dose 3 MG; Start 02/23/18 at 03:00 Multivit/Ca Carb/ B Cmplx/FA/Prenat (Rizwana-Rodolfo) 1 tab DAILY PO Last administered on 02/27/18 08:45; Admin Dose 1 TAB; Start 02/23/18 at 09:00 Epoetin Geo (Epogen (Esrd)) 8,000 units AFTER DIALYSIS SC Last administered on 02/23/18 17:40; Admin Dose 8,000 UNITS; Start 02/23/18 at 08:00 Tiotropium [place] (Spiriva) 1 inh DAILY INH Last administered on 02/27/18 08:47; Admin Dose 1 INH; Start 02/23/18 at 15:00 Fluticasone/ Vilanterol (Breo Ellipta 100-25 Mcg Inh) 1 inh DAILY INH Last administered on 02/27/18 08:47; Admin Dose 1 INH; Start 02/23/18 at 15:00 Cholecalciferol (Vitamin D) 2,000 unit DAILY PO Last administered on 02/27/18 08:46; Admin Dose 2,000 UNIT; Start 02/24/18 at 09:00 Calcitriol (Rocaltrol) 0.25 mcg AC BREAKFAST PO Last administered on 02/27/18 06:17; Admin Dose 0.25 MCG; Start 02/24/18 at 07:00 Sevelamer Carbonate (Renvela) 800 mg WITH MEALS PO Last administered on 02/27 12:06; Admin Dose 800 MG; Start 02/24/18 at 08:00 Metoprolol Tartrate (Lopressor) 50 mg Q12 PO Last administered on 02/27/18 08:49; Admin Dose 50 MG; Start 02/24/18 at 21:00 Morphine Sulfate (morphine) 6 mg Q4H PRN PO SEVERE PAIN LEVEL 7-10 Last administered on 02/25/18at 00:28; Admin Dose 6 MG; Start 02/24/18 at 17:00 Diphenhydramine HCl (Benadryl) 25 mg Q8H PRN IV PRURITUS Last administered on 02/27/18at 12:06; Admin Dose 25 MG; Start 02/25/18 at 20:00 Levofloxacin (Levaquin) 250 mg DAILY@06 PO Last administered on 02/27/18at 06:17; Admin Dose 250 MG; Start 02/27/18 at 06:00; Stop 03/04/18 at 05:59 Heri Schaefer DO Feb 27, 2018 12:36
--- NOTE | 2018-02-27 14:05 | PN ---
Date/Time of Note Date/Time of Note DATE: 02/27/18 TIME: 14:01 Assessment/Plan VTE Prophylaxis Risk score (from Ns)>0 risk: 1 SCD applied (from Ns): No SCD contraindicated: low risk/ambulating Pharmacological prophylaxis: heparin Lines/Catheters [facility]from [facility] Saline Lock Assessment/Plan Problems: (1) Acute bronchitis Status: Acute Comment: With the change in antibiotics the patient is now improving. We will continue these and they have already a time limitation-end date. Qualifiers: Bronchitis organism: unspecified organism Qualified Codes: J20.9 - Acute bronchitis, unspecified (2) End stage renal disease on dialysis due to type 2 diabetes mellitus Status: Chronic Comment: She continues on dialysis. I spoken with the director of case management today who did a little bit of checking and is found out that the paperwork is gone through the [facility] office and will be approved. This information about the approval be in the system as of this coming Friday, March 02, 2018. Given that we need the approval in the system to then set up the transportation she will be here at least until March 02. As the best we can do (3) DM (diabetes mellitus), type 2 Status: Chronic Comment: Adequate control Qualifiers: Diabetes mellitus termite helper insulin use: with skilled nursing use Diabetes mellitus complication status: with kidney complications Diabetes mellitus complication detail: with chronic kidney disease Chronic kidney disease stage: on chronic dialysis Qualified Codes: E11.22 - Type 2 diabetes mellitus with diabetic chronic kidney disease; N18.6 - End stage renal disease; Z79.4 - nursing home (current) use of insulin; Z99.2 - Dependence on renal dialysis (4) Papillary thyroid carcinoma Onset Date: ~ 02/2013 Status: Chronic Comment: In active at this time and on replacement thyroid hormone therapy- suppressive therapy (5) Essential (primary) hypertension Status: Chronic Comment: Adequate control (6) Hyperlipidemia Status: Chronic Comment: Continue with statin therapy Qualifiers: Hyperlipidemia type: pure hypercholesterolemia Qualified Codes: E78.00 - Pure hypercholesterolemia, unspecified (7) Atherosclerotic heart disease of [place] coronary artery without angina pectoris Status: Chronic Comment: Stable and quiescent at this time with high-dose beta-blockade. The patient still needs to go to [facility] for her specialized intervention Qualifiers: [place] vs. transplanted heart: [place] heart Qualified Codes: I25.10 - Atherosclerotic heart disease of [place] coronary artery without angina pectoris Result Diagram: 02/26/18 0508 02/26/18 0508 Results 24hrs Laboratory Tests Test 02/26/18 18:10 02/26/18 22:04 02/27/18 07:42 02/27/18 11:52 Bedside Glucose 155 110 96 85 Subjective 24 Hr Interval Summary Free Text/Dictation Patient reports for the first time that her cough is decreasing. Constitutional: no complaints, improved Respiratory: no complaints Cardiovascular: no complaints Gastrointestinal: no complaints Musculoskeletal: no complaints Exam/Review of Systems Vital Signs Vitals Vital Signs Date Temp Pulse Resp B/P (MAP) Pulse Ox O2 O2 Flow FiO2 Time Delivery Rate 02/27/18 71 13:20 02/27/18 17 125/59 96 Room Air 13:18 (81) 02/27/18 97.6 11:30 02/26/18 21 10:40 Intake and Output 02/26/18 02/26/18 02/27/18 1515:00 23:00 07:00 IntakeIntake Total 620 ml 460 ml BalanceBalance 620 ml 460 ml Exam Constitutional: alert, oriented Neck: supple, non-tender Respiratory: clear to auscultation, normal air movement Medications Medications Current Medications Clopidogrel Bisulfate (plaVIX) 75 mg DAILY PO Last administered on 02/27/18at 08:45; Admin Dose 75 MG; Start 02/23/18 at 09:00 Isosorbide Mononitrate (Imdur) 30 mg DAILY PO Last administered on 02/27/18at 08:46; Admin Dose 30 MG; Start 02/22/18 at 23:30 Famotidine (Pepcid) 10 mg DAILY PO Last administered on 02/27/18at 08:45; Admin Dose 10 MG; Start 02/23/18 at 09:00 Insulin Aspart (Novolog Insulin Pen) NOVOLOG *MILD* ALGORITHM WITH MEALS BEDTIME SC Last administered on 02/26/18at 18:15; Admin Dose 1 UNIT; Start 02/23/18 at 08:00 Levothyroxine Sodium (Synthroid) 200 mcg DAILY@0700 PO Last administered on 02/27/18at 06:17; Admin Dose 200 MCG; Start 02/23/18 at 07:00 Levothyroxine Sodium (Synthroid) 25 mcg DAILY@0700 PO Last administered on 02/27/18at 06:17; Admin Dose 25 MCG; Start 02/23/18 at 07:00 Aspirin (Aspirin) 81 mg DAILY PO Last administered on 02/27/18at 08:46; Admin Dose 81 MG; Start 02/23/18 at 09:00 Atorvastatin Calcium (Lipitor) 80 mg DAILY PO Last administered on 02/27/18at 08:45; Admin Dose 80 MG; Start 02/23/18 at 09:00 Amlodipine Besylate (Norvasc) 5 mg DAILY PO Last administered on 02/27/18at 08:46; Admin Dose 5 MG; Start 02/23/18 at 09:00 Hydralazine HCl (Apresoline) 50 mg Q8H PRN PO ELEVATED SYSTOLIC BP; Start 02/22/18 at 23:30 Heparin Sodium (Porcine) (Heparin (5000 Units/1ml)) 5,000 unit BID SC Last administered on 02/27/18at 08:57; Admin Dose 5,000 UNIT; Start 02/23/18 at 09:00 Albuterol/ Ipratropium (Duoneb) 3 ml Q6H RESP THERAPY PRN HHN sob; Start at 23:30 Miscellaneous Information 1 ea NOTE XX ; Start 02/22/18 at 23:30 Glucose (Glutose) 15 gm Q15M PRN PO DECREASED GLUCOSE; Start 02/22/18 at 23:30 Glucose (Glutose) 22.5 gm Q15M PRN PO DECREASED GLUCOSE; Start 02/22/18 at 23:30 Dextrose (D50w Syringe) 25 ml Q15M PRN IV DECREASED GLUCOSE; Start 02/22/18 at 23:30 Dextrose (D50w Syringe) 50 ml Q15M PRN IV DECREASED GLUCOSE; Start 02/22/18 at 23:30 Glucagon (Glucagen) 1 mg Q15M PRN IM DECREASED GLUCOSE; Start 02/22/18 at 23:30 Glucose (Glutose) 15 gm Q15M PRN BUCCAL DECREASED GLUCOSE; Start 02/22/18 at 23:30 Morphine Sulfate (morphine) 3 mg Q4H PRN IV SEVERE PAIN LEVEL 7-10 Last administered on 02/26/18at 21:59; Admin Dose 3 MG; Start 02/23/18 at 03:00 Multivit/Ca Carb/ B Cmplx/FA/Prenat (Rizwana-Rodolfo) 1 tab DAILY PO Last admin istered on 02/27/18 08:45; Admin Dose 1 TAB; Start 02/23/18 at 09:00 Epoetin Geo (Epogen (Esrd)) 8,000 units AFTER DIALYSIS SC Last administered on 02/23/18 17:40; Admin Dose 8,000 UNITS; Start 02/23/18 at 08:00 Tiotropium [place] (Spiriva) 1 inh DAILY INH Last administered on 02/27/18 08:47; Admin Dose 1 INH; Start 02/23/18 at 15:00 Fluticasone/ Vilanterol (Breo Ellipta 100-25 Mcg Inh) 1 inh DAILY INH Last administered on 02/27/18 08:47; Admin Dose 1 INH; Start 02/23/18 at 15:00 Cholecalciferol (Vitamin D) 2,000 unit DAILY PO Last administered on 02/27/18 08:46; Admin Dose 2,000 UNIT; Start 02/24/18 at 09:00 Calcitriol (Rocaltrol) 0.25 mcg AC BREAKFAST PO Last administered on 02/27/18 06:17; Admin Dose 0.25 MCG; Start 02/24/18 at 07:00 Sevelamer Carbonate (Renvela) 800 mg WITH MEALS PO Last administered on 02/27/18 12:06; Admin Dose 800 MG; Start 02/24/18 at 08:00 Metoprolol Tartrate (Lopressor) 50 mg Q12 PO Last administered on 02/27/18 08:49; Admin Dose 50 MG; Start 02/24/18 at 21:00 Morphine Sulfate (morphine) 6 mg Q4H PRN PO SEVERE PAIN LEVEL 7-10 Last admini stered on 02/25/18 00:28; Admin Dose 6 MG; Start 02/24/18 at 17:00 Diphenhydramine HCl (Benadryl) 25 mg Q8H PRN IV PRURITUS Last administered on 02/27/18 12:06; Admin Dose 25 MG; Start 02/25/18 at 20:00 Levofloxacin (Levaquin) 250 mg DAILY@06 PO Last administered on 02/27/18 06:17; Admin Dose 250 MG; Start 02/27/18 at 06:00; Stop 03/04/18 at 05:59 MARGARITO VIVAR MD Feb 27, 2018 14:05
--- NOTE | 2018-02-27 16:03 | NUR ---
MediCAL status; Followed up with [facility] Financial Counselor about Patient's MediCAL status and has been approved by [facility] and should take into effect within 24 hours. Will inform Care Team.
--- NOTE | 2018-02-27 18:53 | NUR ---
RN NOTE HD DONE AND 1 L WAS OUT , PT TOLERATED VERY WELL .
[2018-02-28] VITALS (12 sets, daily range): BP systolic 102–149; BP diastolic 52–84; PULSE 69–91; RESP 18–20
[2018-02-28] MEDS: morphine LIQ (10 MG/5 ML) CUP PO PRN ×3 (00:14→20:38)
[2018-02-28] MEDS: LEVOFLOXACIN 250 MG TAB PO SCH (06:06)
--- NOTE | 2018-02-28 06:59 | NUR ---
EOSS pt. AAO x4. No s/s of respiratory distress, pain or discomfort at this time. Provided Morphine PO for neck pain with good effect. Pt had low BS check last night provided hypoglycemia protocol. BS this AM was 162mg/dl. Pt reported that she didn't have dinner last due that she dislike the food. Placed a new IV on left wrist with good blood returned, but after 30min pt reported bleeding at site. Iv was not flushing and it was removed. Charge nurse called [facility] for a midline , but no one available. Notified Gigi Dugan regarding low BS and no iv access. Report given to CORRIE Barbosa
--- NOTE | 2018-02-28 07:25 | PN ---
Date/Time of Note Date/Time of Note DATE: 02/28/18 TIME: 07:24 Assessment/Plan VTE Prophylaxis Risk score (from Nsg)>0 risk: 2 SCD applied (from Ns): No SCD contraindicated: other Pharmacological prophylaxis: other Lines/Catheters [facility] [place] Assessment/Plan Hospital Course renal follow up SUBJECTIVE: The patient is stable, no events overnight. No fevers, chills, nausea, vomiting. d/w family at the bedside OBJECTIVE: HEENT: Head is normocephalic. NECK: Supple. HEART: Regular rate. LUNGS: Show diminished breath sounds at the base. ABDOMEN: Soft, nontender to palpation. No rebound or guarding. EXTREMITIES: Negative for clubbing, cyanosis. No edema. DERMATOLOGIC: No rashes. MUSCULOSKELETAL: No joint effusions. NEUROLOGIC: No change in exam. MEDICATIONS: The patient's medications have been reviewed. LABORATORY DATA: reviewed ASSESSMENT AND PLAN: 1. End-stage renal disease. The patient is scheduled for dialysis in am. 2. Hyperkalemia, improved. Continue dialysis and low potassium bath. 3. Volume overload, improving. Continue ultra filtration dialysis. 4. Hypertension. Continue current blood pressure regimen. 5. Anemia. Continue to monitor hemoglobin and hematocrit levels. Continue Epogen. 6. 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 Continue vitamin D analogs and phosphate binders, monitor calcium and phosphorus levels. 7. Bronchitis, improving. Continue medical management. 8. Diabetes. Continue insulin regimen. 9. Coronary artery disease. Continue medical management. Result Diagram: 02/26/18 0508 02/26/18 0508 Results 24hrs Laboratory Tests Test 02/27/18 07:42 02/27/18 11:52 02/27/18 17:00 02/27/18 21:40 Bedside Glucose 96 85 110 63 L Test 02/27/18 22:23 02/27/18 22:54 02/27/18 23:18 02/28/18 03:38 Bedside Glucose 77 96 93 162 Exam/Review of Systems Vital Signs Vitals Vital Signs Date Temp Pulse Resp B/P (MAP) Pulse Ox O2 O2 Flow FiO2 Time Delivery Rate 02/28/18 73 04:00 02/28/18 98.0 18 132/52 100 Room Air 03:45 (78) 02/26/18 21 10:40 Intake and Output 02/27/18 02/27/18 02/28/18 1515:00 23:00 07:00 IntakeIntake Total 300 ml OutputOutput Total 0 ml 1400 ml BalanceBalance 0 ml -1100 ml Medications Medications Current Medications Clopidogrel Bisulfate (plaVIX) 75 mg DAILY PO Last administered on 02/27/18 08:45; Admin Dose 75 MG; Start 02/23/18 at 09:00 Isosorbide Mononitrate (Imdur) 30 mg DAILY PO Last administered on 02/27/18 08:46; Admin Dose 30 MG; Start 02/22/18 at 23:30 Famotidine (Pepcid) 10 mg DAILY PO Last administered on 02/27/18 08:45; Admin Dose 10 MG; Start 02/23/18 at 09:00 Insulin Aspart (Novolog Insulin Pen) NOVOLOG *MILD* ALGORITHM WITH MEALS BEDTIME SC Last administered on 02/26/18 18:15; Admin Dose 1 UNIT; Start 02/23/18 at 08:00 Levothyroxine Sodium (Synthroid) 200 mcg DAILY@0700 PO Last administered on 02/27/18 06:17; Admin Dose 200 MCG; Start 02/23/18 at 07:00 Levothyroxine Sodium (Synthroid) 25 mcg DAILY@0700 PO Last administered on 02/27/18at 06:17; Admin Dose 25 MCG; Start 02/23/18 at 07:00 Aspirin (Aspirin) 81 mg DAILY PO Last administered on 02/27/18 08:46; Admin D ose 81 MG; Start 02/23/18 at 09:00 Atorvastatin Calcium (Lipitor) 80 mg DAILY PO Last administered on 02/27/18at 08:45; Admin Dose 80 MG; Start 02/23/18 at 09:00 Amlodipine Besylate (Norvasc) 5 mg DAILY PO Last administered on 02/27/18 08:46; Admin Dose 5 MG; Start 02/23/18 at 09:00 Hydralazine HCl (Apresoline) 50 mg Q8H PRN PO ELEVATED SYSTOLIC BP; Start 02/22/18 at 23:30 Heparin Sodium (Porcine) (Heparin (5000 Units/1ml)) 5,000 unit BID SC Last administered on 02/27/18at 21:49; Admin Dose 5,000 UNIT; Start 02/23/18 at 09:00 Albuterol/ Ipratropium (Duoneb) 3 ml Q6H RESP THERAPY PRN HHN sob; Start 02/22/18 at 23:30 Miscellaneous Information 1 ea NOTE XX ; Start 02/22/18 at 23:30 Glucose (Glutose) 15 gm Q15M PRN PO DECREASED GLUCOSE; Start 02/22/18 at 23:30 Glucose (Glutose) 22.5 gm Q15M PRN PO DECREASED GLUCOSE; Start 02/22/18 at 23:30 Dextrose (D50w Syringe) 25 ml Q15M PRN IV DECREASED GLUCOSE; Start 02/22/18 at 23:30 Dextrose (D50w Syringe) 50 ml Q15M PRN IV DECREASED GLUCOSE; Start 02/22/18 at 23:30 Glucagon (Glucagen) 1 mg Q15M PRN IM DECREASED GLUCOSE; Start 02/22/18 at 23:30 Glucose (Glutose) 15 gm Q15M PRN BUCCAL DECREASED GLUCOSE; Start 02/22/18 at 23:30 Morphine Sulfate (morphine) 3 mg Q4H PRN IV SEVERE PAIN LEVEL 7-10 Last administered on 02/26/18at 21:59; Admin Dose 3 MG; Start 02/23/18 at 03:00 Multivit/Ca Carb/ B Cmplx/FA/Prenat (Rizwana-Rodolfo) 1 tab DAILY PO Last administered on 02/27/18 08:45; Admin Dose 1 TAB; Start 02/23/18 at 09:00 Epoetin Geo (Epogen (Esrd)) 8,000 units AFTER DIALYSIS SC Last administered on 02/23/18 17:40; Admin Dose 8,000 UNITS; Start 02/23/18 at 08:00 Tiotropium [place] (Spiriva) 1 inh DAILY INH Last administered on 02/27/18 08:47; Admin Dose 1 INH; Start 02/23/18 at 15:00 Fluticasone/ Vilanterol (Breo Ellipta 100-25 Mcg Inh) 1 inh DAILY INH Last administered on 02/27/18 08:47; Admin Dose 1 INH; Start 02/23/18 at 15:00 Cholecalciferol (Vitamin D) 2,000 unit DAILY PO Last administered on 02/27/18 08:46; Admin Dose 2,000 UNIT; Start 02/24/18 at 09:00 Calcitriol (Rocaltrol) 0.25 mcg AC BREAKFAST PO Last administered on 02/27/18 06:17; Admin Dose 0.25 MCG; Start 02/24/18 at 07:00 Sevelamer Carbonate (Renvela) 800 mg WITH MEALS PO Last administered on 02/27/18at 18:05; Admin Dose 800 MG; Start 02/24/18 at 08:00 Metoprolol Tartrate (Lopressor) 50 mg Q12 PO Last administered on 02/27/18at 21:37; Admin Dose 50 MG; Start 02/24/18 at 21:00 Morphine Sulfate (morphine) 6 mg Q4H PRN PO SEVERE PAIN LEVEL 7-10 Last administered on 02/28/18 00:14; Admin Dose 6 MG; Start 02/24/18 at 17:00 Diphenhydramine HCl (Benadryl) 25 mg Q8H PRN IV PRURITUS Last administered on 02/27/18at 21:37; Admin Dose 25 MG; Start 02/25/18 at 20:00 Levofloxacin (Levaquin) 250 mg DAILY@06 PO Last administered on 02/28/18 06:06; Admin Dose 250 MG; Start 02/27/18 at 06:00; Stop 03/04/18 at 05:59 DEANDRE ROCHE DO Feb 28, 2018 07:25
[2018-02-28] MEDS: INSULIN ASPART [NOVOLOG] 3 ML PEN SC SCH ×4 (08:00→20:54)
[2018-02-28] MEDS: CALCITRIOL 0.25 MCG CAP PO SCH (08:42)
[2018-02-28] MEDS: METOPROLOL 25 MG TAB PO SCH ×2 (08:42→20:39)
[2018-02-28] MEDS: ATORVASTATIN 80 MG TAB PO SCH (08:42)
[2018-02-28] MEDS: SEVELAMER CARBONATE 800 MG TABLET PO SCH ×3 (08:42→18:00)
[2018-02-28] MEDS: FAMOTIDINE 20 MG TAB PO SCH (08:43)
[2018-02-28] MEDS: AMLODIPINE 5 MG TAB PO SCH (08:43)
[2018-02-28] MEDS: MULTIVIT/CA CARB/B CMPLX/FA TAB PO SCH (08:43)
[2018-02-28] MEDS: ASPIRIN 81 MG TAB PO SCH (08:43)
[2018-02-28] MEDS: ISOSORBIDE MONONITRATE(SR)30 MG TAB PO SCH (08:43)
[2018-02-28] MEDS: CLOPIDOGREL 75 MG TAB PO SCH (08:43)
[2018-02-28] MEDS: FLUTICASONE/VILANTEROL 100-25 INH SCH (08:44)
[2018-02-28] MEDS: HEPARIN 5,000 UNIT/1 ML VIAL SC SCH ×2 (08:52→20:53)
[2018-02-28] MEDS: CHOLECALCIFEROL 2,000 UNIT CAP PO SCH (09:00)
[2018-02-28] MEDS: LEVOTHYROXINE 25 MCG TAB PO SCH (09:11)
[2018-02-28] MEDS: LEVOTHYROXINE 100 MCG TAB PO SCH (09:12)
--- NOTE | 2018-02-28 11:17 | PN ---
Date/Time of Note Date/Time of Note DATE: 02/28/18 TIME: 11:15 Assessment/Plan VTE Prophylaxis Risk score (from Ns)>0 risk: 2 SCD applied (from Ns): No SCD contraindicated: low risk/ambulating Pharmacological prophylaxis: heparin Lines/Catheters IV Catheter Type (from [facility]): Saline Lock Assessment/Plan Problems: (1) Acute bronchitis Status: Acute Comment: Stabilizing nicely. Qualifiers: Bronchitis organism: unspecified organism Qualified Codes: J20.9 - Acute bronchitis, unspecified (2) DM (diabetes mellitus), type 2 Status: Chronic Comment: Adequate glycemic control Qualifiers: Diabetes mellitus custodial insulin use: with custodial use Diabetes mellitus complication status: with kidney complications Diabetes mellitus complication detail: with chronic kidney disease Chronic kidney disease stage: on chronic dialysis Qualified Codes: E11.22 - Type 2 diabetes mellitus with diabetic chronic kidney disease; N18.6 - End stage renal disease; Z79.4 - remote computer terminal operator (current) use of insulin; Z99.2 - Dependence on renal dialysis (3) End stage renal disease on dialysis due to type 2 diabetes mellitus Status: Chronic Comment: For dialysis as per nephrology. Attempting to make all the arrangements so that she can get back and forth to her outpatient dialysis center. I have spoken with the director of case management, Mulu Francisco, who informed me that this would get put in an improved [facility] on Friday but would not appear in their system until Friday. As such as soon as we have verification a transportation some place this young lady can go home (4) Papillary thyroid carcinoma Onset Date: ~ 02/2013 Status: Chronic Comment: Controlled and quiescent (5) Essential (primary) hypertension Status: Chronic Comment: Adequate control (6) Major depressive disorder, single episode, severe without psychotic features Status: Chronic Comment: Adequate control Result Diagram: 02/26/18 0508 02/26/18 0508 Results 24hrs Laboratory Tests Test 02/27/18 11:52 02/27/18 17:00 02/27/18 21:40 02/27/18 22:23 Bedside Glucose 85 110 63 L 77 Test 02/27/18 22:54 02/27/18 23:18 02/28/18 03:38 02/28/18 08:41 Bedside Glucose 96 93 162 163 Subjective 24 Hr Interval Summary Free Text/Dictation Patient reports she is having some neck pain and still little bit of cough Constitutional: no complaints (No fevers chills or sweats) Respiratory: cough (Cough still present but less) Cardiovascular: no complaints Gastrointestinal: no complaints Genitourinary: no complaints Musculoskeletal: neck pain Exam/Review of Systems Vital Signs Vitals Vital Signs Date Temp Pulse Resp B/P (MAP) Pulse Ox O2 O2 Flow FiO2 Time Delivery Rate 02/28/18 69 08:00 02/28/18 97.9 18 143/84 100 07:39 (103) 02/28/18 Room Air 03:45 02/26/18 21 10:40 Intake and Output 02/27/18 02/27/18 02/28/18 1515:00 23:00 07:00 IntakeIntake Total 300 ml OutputOutput Total 0 ml 1400 ml BalanceBalance 0 ml -1100 ml Exam Constitutional: alert, oriented Neck: supple, non-tender, other (No trigger point) Respiratory: clear to auscultation, normal air movement Cardiovascular: regular rate and rhythm, nl pulses Medications Medications Current Medications Clopidogrel Bisulfate (plaVIX) 75 mg DAILY PO Last administered on 02/28/18 08:43; Admin Dose 75 MG; Start 02/23/18 at 09:00 Isosorbide Mononitrate (Imdur) 30 mg DAILY PO Last administered on 02/28/18 08:43; Admin Dose 30 MG; Start 02/22/18 at 23:30 Famotidine (Pepcid) 10 mg DAILY PO Last administered on 02/28/18 08:43; Admin Dose 10 MG; Start 02/23/18 at 09:00 Insulin Aspart (Novolog Insulin Pen) NOVOLOG *MILD* ALGORITHM WITH MEALS BEDTIME SC Last administered on 02/26/18 18:15; Admin Dose 1 UNIT; Start 02/23/18 at 08:00 Levothyroxine Sodium (Synthroid) 200 mcg DAILY@0700 PO Last administered on 02/28/18 09:12; Admin Dose 200 MCG; Start 02/23/18 at 07:00 Levothyroxine Sodium (Synthroid) 25 mcg DAILY@0700 PO Last administered on 02/28/18 09:11; Admin Dose 25 MCG; Start 02/23/18 at 07:00 Aspirin (Aspirin) 81 mg DAILY PO Last administered on 02/28/18 08:43; Admin Do se 81 MG; Start 02/23/18 at 09:00 Atorvastatin Calcium (Lipitor) 80 mg DAILY PO Last administered on 02/28/18at 08:42; Admin Dose 80 MG; Start 02/23/18 at 09:00 Amlodipine Besylate (Norvasc) 5 mg DAILY PO Last administered on 02/28/18 08:43; Admin Dose 5 MG; Start 02/23/18 at 09:00 Hydralazine HCl (Apresoline) 50 mg Q8H PRN PO ELEVATED SYSTOLIC BP; Start 02/22/18 at 23:30 Heparin Sodium (Porcine) (Heparin (5000 Units/1ml)) 5,000 unit BID SC Last administered on 02/28/18 08:52; Admin Dose 5,000 UNIT; Start 02/23/18 at 09:00 Albuterol/ Ipratropium (Duoneb) 3 ml Q6H RESP THERAPY PRN HHN sob; Start 02/22/18 at 23:30 Miscellaneous Information 1 ea NOTE XX ; Start 02/22/18 at 23:30 Glucose (Glutose) 15 gm Q15M PRN PO DECREASED GLUCOSE; Start 02/22/18 at 23:30 Glucose (Glutose) 22.5 gm Q15M PRN PO DECREASED GLUCOSE; Start 02/22/18 at 23:30 Dextrose (D50w Syringe) 25 ml Q15M PRN IV DECREASED GLUCOSE; Start 02/22/18 at 23:30 Dextrose (D50w Syringe) 50 ml Q15M PRN IV DECREASED GLUCOSE; Start 02/22/18 at 23:30 Glucagon (Glucagen) 1 mg Q15M PRN IM DECREASED GLUCOSE; Start 02/22/18 at 23:30 Glucose (Glutose) 15 gm Q15M PRN BUCCAL DECREASED GLUCOSE; Start 02/22/18 at 23:30 Morphine Sulfate (morphine) 3 mg Q4H PRN IV SEVERE PAIN LEVEL 7-10 Last administered on 02/26/18at 21:59; Admin Dose 3 MG; Start 02/23/18 at 03:00 Multivit/Ca Carb/ B Cmplx/FA/Prenat (Rizwana-Rodolfo) 1 tab DAILY PO Last administered on 02/28/18at 08:43; Admin Dose 1 TAB; Start 02/23/18 at 09:00 Epoetin Geo (Epogen (Esrd)) 8,000 units AFTER DIALYSIS SC Last administered on 02/23/18 17:40; Admin Dose 8,000 UNITS; Start 02/23/18 at 08:00 Tiotropium [place] (Spiriva) 1 inh DAILY INH Last administered on 02/27/18 08:47; Admin Dose 1 INH; Start 02/23/18 at 15:00 Fluticasone/ Vilanterol (Breo Ellipta 100-25 Mcg Inh) 1 inh DAILY INH Last administered on 02/28/18 08:44; Admin Dose 1 INH; Start 02/23/18 at 15:00 Cholecalciferol (Vitamin D) 2,000 unit DAILY PO Last administered on 02/27/18 08:46; Admin Dose 2,000 UNIT; Start 02/24/18 at 09:00 Calcitriol (Rocaltrol) 0.25 mcg AC BREAKFAST PO Last administered on 02/28/18 08:42; Admin Dose 0.25 MCG; Start 02/24/18 at 07:00 Sevelamer Carbonate (Renvela) 800 mg WITH MEALS PO Last administered on 02/28/18 08:42; Admin Dose 800 MG; Start 02/24/18 at 08:00 Metoprolol Tartrate (Lopressor) 50 mg Q12 PO Last administered on 02/28/18 08:42; Admin Dose 50 MG; Start 02/24/18 at 21:00 Morphine Sulfate (morphine) 6 mg Q4H PRN PO SEVERE PAIN LEVEL 7-10 Last administered on 02/28/18 00:14; Admin Dose 6 MG; Start 02/24/18 at 17:00 Diphenhydramine HCl (Benadryl) 25 mg Q8H PRN IV PRURITUS Last administered on 02/27/18 21:37; Admin Dose 25 MG; Start 02/25/18 at 20:00 Levofloxacin (Levaquin) 250 mg DAILY@06 PO Last administered on 02/28/18 06:06; Admin Dose 250 MG; Start 02/27/18 at 06:00; Stop 03/04/18 at 05:59 MARGARITO VIVAR MD Feb 28, 2018 11:17
[2018-02-28] MEDS: TIOTROPIUM 18 MCG CAPSULE INHA DEV INH SCH (12:04)
[2018-02-28] MEDS: DIPHENHYDRAMINE 25 MG CAP PO PRN ×2 (15:03→20:59)
--- NOTE | 2018-02-28 18:52 | NUR ---
EOSS HD FOR TOMORROW , CONFIRMATION NUMBER IS [id number] .NO ACUTE DISTRESS NOTED DURING THIS SHIFT .
[2018-03-01] VITALS (25 sets, daily range): BP systolic 138–164; BP diastolic 68–97; PULSE 69–77; RESP 18–20
--- NOTE | 2018-03-01 04:48 | NUR ---
Pt. have been stable, rested comfortably; complained of back pain x1, relieved by Morphine 6 mg po. Restarted peripheral IV after 2 attempts, guage 24 on the left hand, NSR, normal V/S.
[2018-03-01] MEDS: LEVOTHYROXINE 100 MCG TAB PO SCH (06:06)
[2018-03-01] MEDS: LEVOFLOXACIN 250 MG TAB PO SCH (06:06)
[2018-03-01] MEDS: CALCITRIOL 0.25 MCG CAP PO SCH (06:06)
[2018-03-01] MEDS: LEVOTHYROXINE 25 MCG TAB PO SCH (06:06)
[2018-03-01] MEDS: INSULIN ASPART [NOVOLOG] 3 ML PEN SC SCH ×4 (08:00→23:25)
--- NOTE | 2018-03-01 08:47 | PN ---
Date/Time of Note Date/Time of Note DATE: 03/01/18 TIME: 08:45 Assessment/Plan VTE Prophylaxis Risk score (from Nsg)>0 risk: 2 SCD applied (from Ns): No SCD contraindicated: other Pharmacological prophylaxis: other Lines/Catheters IV Catheter Type (from [facility]): Saline Lock Assessment/Plan Hospital Course renal follow up SUBJECTIVE: The patient is stable, no events overnight. No fevers, chills, nausea, vomiting. d/w family at the bedside OBJECTIVE: HEENT: Head is normocephalic. NECK: Supple. HEART: Regular rate. LUNGS: Show diminished breath sounds at the base. ABDOMEN: Soft, nontender to palpation. No rebound or guarding. EXTREMITIES: Negative for clubbing, cyanosis. No edema. DERMATOLOGIC: No rashes. MUSCULOSKELETAL: No joint effusions. NEUROLOGIC: No change in exam. MEDICATIONS: The patient's medications have been reviewed. LABORATORY DATA: reviewed ASSESSMENT AND PLAN: 1. End-stage renal disease. continue HD today 2. Hyperkalemia, improved. Continue dialysis and low potassium bath. 3. Volume overload, improving. Continue ultra filtration dialysis. 4. Hypertension. Continue current blood pressure regimen. 5. Anemia. Continue to monitor hemoglobin and hematocrit levels. Continue Epogen. 6. 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 Continue vitamin D analogs and phosphate binders, monitor calcium and phosphorus levels. 7. Bronchitis, improving. Continue medical management. 8. Diabetes. Continue insulin regimen. 9. Coronary artery disease. Continue medical management. Result Diagram: 02/26/18 0508 02/26/18 0508 Results 24hrs Laboratory Tests Test 02/28/18 12:02 02/28/18 17:03 02/28/18 20:45 03/01/18 01:46 Bedside Glucose 156 165 198 171 Test 03/01/18 08:03 Bedside Glucose 183 Exam/Review of Systems Vital Signs Vitals Vital Signs Date Temp Pulse Resp B/P (MAP) Pulse Ox O2 O2 Flow FiO2 Time Delivery Rate 03/01/18 98.1 70 19 150/81 97 07:24 (104) 03/01/18 Room Air 04:10 02/26/18 21 10:40 Intake and Output 02/28/18 02/28/18 03/01/18 1414:59 22:59 06:59 IntakeIntake Total 200 ml 200 ml BalanceBalance 200 ml 200 ml Medications Medications Current Medications Clopidogrel Bisulfate (plaVIX) 75 mg DAILY PO Last administered on 02/28/18 08:43; Admin Dose 75 MG; Start 02/23/18 at 09:00 Isosorbide Mononitrate (Imdur) 30 mg DAILY PO Last administered on 02/28/18 08:43; Admin Dose 30 MG; Start 02/22/18 at 23:30 Famotidine (Pepcid) 10 mg DAILY PO Last administered on 02/28/18 08:43; Admin Dose 10 MG; Start 02/23/18 at 09:00 Insulin Aspart (Novolog Insulin Pen) NOVOLOG *MILD* ALGORITHM WITH MEALS BEDTIME SC Last administered on 02/28/18 20:54; Admin Dose 1 UNIT; Start 02/23/18 at 08:00 Levothyroxine Sodium (Synthroid) 200 mcg DAILY@0700 PO Last administered on 03/01/18 06:06; Admin Dose 200 MCG; Start 02/23/18 at 07:00 Levothyroxine Sodium (Synthroid) 25 mcg DAILY@0700 PO Last administered on 03/01/18 06:06; Admin Dose 25 MCG; Start 02/23/18 at 07:00 Aspirin (Aspirin) 81 mg DAILY PO Last administered on 02/28/18 08:43; Admin Dose 81 MG; Start 02/23/18 at 09:00 Atorvastatin Calcium (Lipitor) 80 mg DAILY PO Last administered on 02/28/18 08:42; Admin Dose 80 MG; Start 02/23/18 at 09:00 Amlodipine Besylate (Norvasc) 5 mg DAILY PO Last administered on 02/28/18 08:43; Admin Dose 5 MG; Start 02/23/18 at 09:00 Hydralazine HCl (Apresoline) 50 mg Q8H PRN PO ELEVATED SYSTOLIC BP; Start 02/22/18 at 23:30 Heparin Sodium (Porcine) (Heparin (5000 Units/1ml)) 5,000 unit BID SC Last administered on 02/28/18 20:53; Admin Dose 5,000 UNIT; Start 02/23/18 at 09:00 Albuterol/ Ipratropium (Duoneb) 3 ml Q6H RESP THERAPY PRN HHN sob; Start 02/22/18 at 23:30 Miscellaneous Information 1 ea NOTE XX ; Start 02/22/18 at 23:30 Glucose (Glutose) 15 gm Q15M PRN PO DECREASED GLUCOSE; Start 02/22/18 at 23:30 Glucose (Glutose) 22.5 gm Q15M PRN PO DECREASED GLUCOSE; Start 02/22/18 at 23:30 Dextrose (D50w Syringe) 25 ml Q15M PRN IV DECREASED GLUCOSE; Start 02/22/18 at 23:30 Dextrose (D50w Syringe) 50 ml Q15M PRN IV DECREASED GLUCOSE; Start 02/22/18 at 23:30 Glucagon (Glucagen) 1 mg Q15M PRN IM DECREASED GLUCOSE; Start 02/22/18 at 23:30 Glucose (Glutose) 15 gm Q15M PRN BUCCAL DECREASED GLUCOSE; Start 02/22/18 at 23:30 Morphine Sulfate (morphine) 3 mg Q4H PRN IV SEVERE PAIN LEVEL 7-10 Last administered on 02/26/18at 21:59; Admin Dose 3 MG; Start 02/23/18 at 03:00 Multivit/Ca Carb/ B Cmplx/FA/Prenat (Rizwana-Rodolfo) 1 tab DAILY PO Last administered on 02/28/18at 08:43; Admin Dose 1 TAB; Start 02/23/18 at 09:00 Epoetin Geo (Epogen (Esrd)) 8,000 units AFTER DIALYSIS SC Last administered on 02/23/18at 17:40; Admin Dose 8,000 UNITS; Start 02/23/18 at 08:00 Tiotropium [place] (Spiriva) 1 inh DAILY INH Last administered on 02/28/18at 12:04; Admin Dose 1 INH; Start 02/23/18 at 15:00 Fluticasone/ Vilanterol (Breo Ellipta 100-25 Mcg Inh) 1 inh DAILY INH Last administered on 02/28/18at 08:44; Admin Dose 1 INH; Start 02/23/18 at 15:00 Cholecalciferol (Vitamin D) 2,000 unit DAILY PO Last administered on 02/28/18at 09:00; Admin Dose 2,000 UNIT; Start 02/24/18 at 09:00 Calcitriol (Rocaltrol) 0.25 mcg AC BREAKFAST PO Last administered on 03/01/18at 06:06; Admin Dose 0.25 MCG; Start 02/24/18 at 07:00 Sevelamer Carbonate (Renvela) 800 mg WITH MEALS PO Last administered on 02/28/18 12:03; Admin Dose 800 MG; Start 02/24/18 at 08:00 Metoprolol Tartrate (Lopressor) 50 mg Q12 PO Last administered on 02/28/18 20:39; Admin Dose 50 MG; Start 02/24/18 at 21:00 Morphine Sulfate (morphine) 6 mg Q4H PRN PO SEVERE PAIN LEVEL 7-10 Last administered on 02/28/18 20:38; Admin Dose 6 MG; Start 02/24/18 at 17:00 Diphenhydramine HCl (Benadryl) 25 mg Q8H PRN IV PRURITUS Last administered on 02/27/18 21:37; Admin Dose 25 MG; Start 02/25/18 at 20:00 Levofloxacin (Levaquin) 250 mg DAILY@06 PO Last administered on 03/01/18 06 :06; Admin Dose 250 MG; Start 02/27/18 at 06:00; Stop 03/04/18 at 05:59 Diphenhydramine HCl (Benadryl) 25 mg Q6H PRN PO ITCHING Last administered on 02/28/18 20:59; Admin Dose 25 MG; Start 02/28/18 at 15:00 DEANDRE ROCHE DO Mar 01, 2018 08:46
--- NOTE | 2018-03-01 09:07 | PN ---
Date/Time of Note Date/Time of Note DATE: 03/01/18 TIME: 09:05 Assessment/Plan VTE Prophylaxis Risk score (from Ns)>0 risk: 2 SCD applied (from [facility]): No SCD contraindicated: low risk/ambulating Pharmacological prophylaxis: heparin Pharm contraindication: low risk/ambulating Lines/Catheters IV [facility]from [facility] Saline Lock Assessment/Plan Problems: (1) End stage renal disease on dialysis due to type 2 diabetes mellitus Status: Chronic Comment: As per nephrology. Hopefully our lining caser will be able to get the arrangements made for transportation. With that the patient can be discharged. (2) Acute bronchitis Status: Acute Comment: Resolving nicely Qualifiers: Bronchitis organism: unspecified organism Qualified Codes: J20.9 - Acute bronchitis, unspecified (3) DM (diabetes mellitus), type 2 Status: Chronic Comment: Adequate control Qualifiers: Diabetes mellitus care home insulin use: with poultry husbandry teacher use Diabetes mellitus complication status: with kidney complications Diabetes mellitus complication detail: with chronic kidney disease Chronic kidney disease stage: on chronic dialysis Qualified Codes: E11.22 - Type 2 diabetes mellitus with diabetic chronic kidney disease; N18.6 - End stage renal disease; Z79.4 - quarter folder (current) use of insulin; Z99.2 - Dependence on renal dialysis (4) Atherosclerotic heart disease of [place] coronary artery without angina pectoris Status: Chronic Comment: Please see notes from cardiology the patient needs to go for more formalized intervention at a [place] [facility] Qualifiers: [place] vs. transplanted heart: [place] heart Qualified Codes: I25.10 - Atherosclerotic heart disease of [place] coronary artery without angina pectoris (5) Hyperlipidemia Status: Chronic Comment: Continue with statin therapy Qualifiers: Hyperlipidemia type: pure hypercholesterolemia Qualified Codes: E78.00 - Pure hypercholesterolemia, unspecified (6) Hepatic steatosis Status: Chronic Comment: Noted. (7) Essential (primary) hypertension Status: Chronic Comment: Good control. (8) Papillary thyroid carcinoma Onset Date: ~ 02/2013 Status: Chronic Comment: Quiescent at this time Result Diagram: 02/26/18 0508 02/26/18 0508 Results 24hrs Laboratory Tests Test 02/28/18 12:02 02/28/18 17:03 02/28/18 20:45 03/01/18 01:46 Bedside Glucose 156 165 198 171 Test 03/01/18 08:03 Bedside Glucose 183 Subjective 24 Hr Interval Summary Free Text/Dictation She reports that she still has a cough but generally it has improved somewhat. Constitutional: no complaints Respiratory: cough Cardiovascular: no complaints Gastrointestinal: no complaints Genitourinary: no complaints Exam/Review of Systems Vital Signs Vitals Vital Signs Date Temp Pulse Resp B/P (MAP) Pulse Ox O2 O2 Flow FiO2 Time Delivery Rate 03/01/18 71 08:48 03/01/18 98.1 19 150/81 97 07:24 (104) 03/01/18 Room Air 04:10 02/26/18 21 10:40 Intake and Output 02/28/18 02/28/18 03/01/18 1515:00 23:00 07:00 IntakeIntake Total 200 ml 200 ml BalanceBalance 200 ml 200 ml Exam Constitutional: alert, oriented, well developed Respiratory: clear to auscultation, normal air movement Cardiovascular: regular rate and rhythm, nl pulses Medications Medications Current Medications Clopidogrel Bisulfate (plaVIX) 75 mg DAILY PO Last administered on 02/28/18at 08:43; Admin Dose 75 MG; Start 02/23/18 at 09:00 Isosorbide Mononitrate (Imdur) 30 mg DAILY PO Last administered on 02/28/18 08:43; Admin Dose 30 MG; Start 02/22/18 at 23:30 Famotidine (Pepcid) 10 mg DAILY PO Last administered on 02/28/18 08:43; Admin Dose 10 MG; Start 02/23/18 at 09:00 Insulin Aspart (Novolog Insulin Pen) NOVOLOG *MILD* ALGORITHM WITH MEALS BEDTIME SC Last administered on 02/28/18at 20:54; Admin Dose 1 UNIT; Start 02/23/18 at 08:00 Levothyroxine Sodium (Synthroid) 200 mcg DAILY@0700 PO Last administered on 03/01/18 06:06; Admin Dose 200 MCG; Start 02/23/18 at 07:00 Levothyroxine Sodium (Synthroid) 25 mcg DAILY@0700 PO Last administered on 03/01/18at 06:06; Admin Dose 25 MCG; Start 02/23/18 at 07:00 Aspirin (Aspirin) 81 mg DAILY PO Last administered on 02/28/18at 08:43; Admin Dose 81 MG; Start 02/23/18 at 09:00 Atorvastatin Calcium (Lipitor) 80 mg DAILY PO Last administered on 02/28/18at 08:42; Admin Dose 80 MG; Start 02/23/18 at 09:00 Amlodipine Besylate (Norvasc) 5 mg DAILY PO Last administered on 02/28/18at 08:43; Admin Dose 5 MG; Start 02/23/18 at 09:00 Hydralazine HCl (Apresoline) 50 mg Q8H PRN PO ELEVATED SYSTOLIC BP; Start 02/22/18 at 23:30 Heparin Sodium (Porcine) (Heparin (5000 Units/1ml)) 5,000 unit BID SC Last administered on 02/28/18at 20:53; Admin Dose 5,000 UNIT; Start 02/23/18 at 09:00 Albuterol/ Ipratropium (Duoneb) 3 ml Q6H RESP THERAPY PRN HHN sob; Start 02/22/18 at 23:30 Miscellaneous Information 1 ea NOTE XX ; Start 02/22/18 at 23:30 Glucose (Glutose) 15 gm Q15M PRN PO DECREASED GLUCOSE; Start 02/22/18 at 23:30 Glucose (Glutose) 22.5 gm Q15M PRN PO DECREASED GLUCOSE; Start 02/22/18 at 23 :30 Dextrose (D50w Syringe) 25 ml Q15M PRN IV DECREASED GLUCOSE; Start 02/22/18 at 23:30 Dextrose (D50w Syringe) 50 ml Q15M PRN IV DECREASED GLUCOSE; Start 02/22/18 at 23:30 Glucagon (Glucagen) 1 mg Q15M PRN IM DECREASED GLUCOSE; Start 02/22/18 at 23:30 Glucose (Glutose) 15 gm Q15M PRN BUCCAL DECREASED GLUCOSE; Start 02/22/18 at 23:30 Morphine Sulfate (morphine) 3 mg Q4H PRN IV SEVERE PAIN LEVEL 7-10 Last administered on 02/26/18at 21:59; Admin Dose 3 MG; Start 02/23/18 at 03:00 Multivit/Ca Carb/ B Cmplx/FA/Prenat (Rizwana-Rodolfo) 1 tab DAILY PO Last administered on 02/28/18at 08:43; Admin Dose 1 TAB; Start 02/23/18 at 09:00 Epoetin Geo (Epogen (Esrd)) 8,000 units AFTER DIALYSIS SC Last administered on 02/23/18 17:40; Admin Dose 8,000 UNITS; Start 02/23/18 at 08:00 Tiotropium [place] (Spiriva) 1 inh DAILY INH Last administered on 02/28/18 12:04; Admin Dose 1 INH; Start 02/23/18 at 15:00 Fluticasone/ Vilanterol (Breo Ellipta 100-25 Mcg Inh) 1 inh DAILY INH Last administered on 02/28/18 08:44; Admin Dose 1 INH; Start 02/23/18 at 15:00 Cholecalciferol (Vitamin D) 2,000 unit DAILY PO Last administered on 02/28/18 09:00; Admin Dose 2,000 UNIT; Start 02/24/18 at 09:00 Calcitriol (Rocaltrol) 0.25 mcg AC BREAKFAST PO Last administered on 03/01/18 06:06; Admin Dose 0.25 MCG; Start 02/24/18 at 07:00 Sevelamer Carbonate (Renvela) 800 mg WITH MEALS PO Last administered on 02/10 12:03; Admin Dose 800 MG; Start 02/24/18 at 08:00 Metoprolol Tartrate (Lopressor) 50 mg Q12 PO Last administered on 02/28/18 20:39; Admin Dose 50 MG; Start 02/24/18 at 21:00 Morphine Sulfate (morphine) 6 mg Q4H PRN PO SEVERE PAIN LEVEL 7-10 Last administered on 02/28/18 20:38; Admin Dose 6 MG; Start 02/24/18 at 17:00 Diphenhydramine HCl (Benadryl) 25 mg Q8H PRN IV PRURITUS Last administered on 02/27/18 21:37; Admin Dose 25 MG; Start 02/25/18 at 20:00 Levofloxacin (Levaquin) 250 mg DAILY@06 PO Last administered on 03/01/18 06:06; Admin Dose 250 MG; Start 02/27/18 at 06:00; Stop 03/04/18 at 05:59 Diphenhydramine HCl (Benadryl) 25 mg Q6H PRN PO ITCHING Last administered on 02/28/18 20:59; Admin Dose 25 MG; Start 02/28/18 at 15:00 MARGARITO VIVAR MD Mar 01, 2018 09:07
[2018-03-01] MEDS: CHOLECALCIFEROL 2,000 UNIT CAP PO SCH (09:14)
[2018-03-01] MEDS: MULTIVIT/CA CARB/B CMPLX/FA TAB PO SCH (09:14)
[2018-03-01] MEDS: SEVELAMER CARBONATE 800 MG TABLET PO SCH ×3 (09:14→17:41)
[2018-03-01] MEDS: TIOTROPIUM 18 MCG CAPSULE INHA DEV INH SCH (09:14)
[2018-03-01] MEDS: AMLODIPINE 5 MG TAB PO SCH (09:15)
[2018-03-01] MEDS: CLOPIDOGREL 75 MG TAB PO SCH (09:15)
[2018-03-01] MEDS: METOPROLOL 25 MG TAB PO SCH ×2 (09:15→21:23)
[2018-03-01] MEDS: ISOSORBIDE MONONITRATE(SR)30 MG TAB PO SCH (09:15)
[2018-03-01] MEDS: ASPIRIN 81 MG TAB PO SCH (09:15)
[2018-03-01] MEDS: FAMOTIDINE 20 MG TAB PO SCH (09:15)
[2018-03-01] MEDS: ATORVASTATIN 80 MG TAB PO SCH (09:15)
[2018-03-01] MEDS: FLUTICASONE/VILANTEROL 100-25 INH SCH (09:16)
[2018-03-01] MEDS: HEPARIN 5,000 UNIT/1 ML VIAL SC SCH ×2 (09:22→21:30)
[2018-03-01] MEDS: DIPHENHYDRAMINE 25 MG CAP PO PRN ×2 (15:33→21:39)
--- NOTE | 2018-03-01 19:39 | NUR ---
RN NOTE HD DONE , 2 L OUT , PT IN STABLE CONDITION , PT HAS POOR APPETITE .
[2018-03-01] MEDS: morphine LIQ (10 MG/5 ML) CUP PO PRN (21:21)
[2018-03-01] MEDS: EPOETIN 4000 UNITS/1 ML INJ (ESRD) SC SCH (21:33)
[2018-03-02] VITALS (11 sets, daily range): BP systolic 122–159; BP diastolic 53–79; PULSE 69–76; RESP 18–19
[2018-03-02] MEDS: LEVOTHYROXINE 25 MCG TAB PO SCH (06:09)
[2018-03-02] MEDS: CALCITRIOL 0.25 MCG CAP PO SCH (06:09)
[2018-03-02] MEDS: LEVOFLOXACIN 250 MG TAB PO SCH (06:09)
[2018-03-02] MEDS: LEVOTHYROXINE 100 MCG TAB PO SCH (06:10)
--- NOTE | 2018-03-02 06:46 | NUR ---
Pt. was stable the whole night, no complaints, normal V/S, SR.
--- NOTE | 2018-03-02 07:51 | PN ---
DATE: 03/02/2018 SUBJECTIVE: The patient had hemodialysis yesterday, tolerated well. No other events noted. OBJECTIVE: VITAL SIGNS: Blood pressure is 144/79, respirations 19, pulse 71, temperature 99.0. HEENT: Head is normocephalic. NECK: Supple. HEART: Regular rate. LUNGS: Show diminished breath sounds at the base. ABDOMEN: Soft, nontender to palpation without rebound or guarding. EXTREMITIES: Negative for clubbing, cyanosis, no edema. DERMATOLOGIC: No rashes. MUSCULOSKELETAL: No joint effusion. NEUROLOGIC: No change in exam. MEDICATIONS: Reviewed. LABORATORY DATA: Reviewed. ASSESSMENT AND PLAN: 1. End-stage renal disease. The patient had hemodialysis yesterday, tolerated well. Plan is for di alysis tomorrow. 2. Hyperkalemia, improved. Continue dialysis on low potassium bath. 3. Volume overload, improving. Continue ultrafiltration dialysis. 4. Hypertension. Continue current blood pressure regimen. 5. Anemia. Monitor hemoglobin and hematocrit levels. Continue Epogen. 6. 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 Continue vitamin D analogs and phosphat e binders, monitor calcium and phosphorus levels. 7. Bronchitis, improving. Continue medical management. 8. Diabetes. Continue current insulin regimen. 9. Coronary artery disease. Continue medical management. Dictated By: HARVEY LUCIO DO NR/NTS Conf#: [id number] DID#: [id number] CC: CHEYENNE OSBORN MD; KEZIA BRANDT DO;*EndCC*
[2018-03-02] MEDS: INSULIN ASPART [NOVOLOG] 3 ML PEN SC SCH ×4 (08:00→20:56)
[2018-03-02] MEDS: ASPIRIN 81 MG TAB PO SCH (08:52)
[2018-03-02] MEDS: ATORVASTATIN 80 MG TAB PO SCH (08:52)
[2018-03-02] MEDS: AMLODIPINE 5 MG TAB PO SCH (08:53)
[2018-03-02] MEDS: FAMOTIDINE 20 MG TAB PO SCH (08:53)
[2018-03-02] MEDS: SEVELAMER CARBONATE 800 MG TABLET PO SCH ×3 (08:53→17:08)
[2018-03-02] MEDS: ISOSORBIDE MONONITRATE(SR)30 MG TAB PO SCH (08:54)
[2018-03-02] MEDS: MULTIVIT/CA CARB/B CMPLX/FA TAB PO SCH (08:54)
[2018-03-02] MEDS: METOPROLOL 25 MG TAB PO SCH ×2 (08:54→20:42)
[2018-03-02] MEDS: CLOPIDOGREL 75 MG TAB PO SCH (08:54)
[2018-03-02] MEDS: TIOTROPIUM 18 MCG CAPSULE INHA DEV INH SCH (08:54)
[2018-03-02] MEDS: HEPARIN 5,000 UNIT/1 ML VIAL SC SCH ×2 (09:02→20:55)
[2018-03-02] MEDS: FLUTICASONE/VILANTEROL 100-25 INH SCH (09:03)
[2018-03-02] MEDS: CHOLECALCIFEROL 2,000 UNIT CAP PO SCH (09:06)
--- NOTE | 2018-03-02 09:42 | NUR ---
Spoke with Jessica hardy [facility] from tomorrow`s dialysis at 0800. Confirmation#[id number].
--- NOTE | 2018-03-02 14:15 | PN ---
Date/Time of Note Date/Time of Note DATE: 03/02/18 TIME: 14:13 Assessment/Plan VTE Prophylaxis Risk score (from Nsg)>0 risk: 2 SCD applied (from Nsg): No SCD contraindicated: low risk/ambulating Pharmacological prophylaxis: heparin Lines/Catheters IV Catheter Type (from Nrsg): Saline Lock Assessment/Plan Problems: (1) End stage renal disease on dialysis due to type 2 diabetes mellitus Status: Chronic Comment: Patient is stable hemodialysis, however she cannot be discharged. Her Medi-[employer] is approved however the individual insurance company [employer] does not have the approval nurse salon assistant which means we can get the transportation which means she has no way of getting to dialysis which means she will get sick again and will be readmitted. Awaiting completion of connecting the dots (2) DM (diabetes mellitus), type 2 Status: Chronic Comment: Good sugar control Qualifiers: Diabetes mellitus alf insulin use: with oysterman use Diabetes mellitus complication status: with kidney complications Diabetes mellitus complication detail: with chronic kidney disease Chronic kidney disease stage: on chronic dialysis Qualified Codes: E11.22 - Type 2 diabetes mellitus with diabetic chronic kidney disease; N18.6 - End stage renal disease; Z79.4 - MCFP (current) use of insulin; Z99.2 - Dependence on renal dialysis (3) Papillary thyroid carcinoma Onset Date: ~ 02/2013 Status: Chronic Comment: Stable on replacement therapy (4) Hyperlipidemia Status: Chronic Comment: Stable on statin therapy Qualifiers: Hyperlipidemia type: pure hypercholesterolemia Qualified Codes: E78.00 - Pure hypercholesterolemia, unspecified Result Diagram: 02/26/18 0508 02/26/18 0508 Results 24hrs Laboratory Tests Test 03/01/18 16:54 03/01/18 23:24 03/02/18 08:04 03/02/18 11:36 Bedside Glucose 110 83 116 103 Subjective 24 Hr Interval Summary Free Text/Dictation Patient remains without complaint. Constitutional: no complaints Respiratory: cough Cardiovascular: no complaints Gastrointestinal: no complaints Exam/Review of Systems Vital Signs Vitals Vital Signs Date Temp Pulse Resp B/P (MAP) Pulse Ox O2 O2 Flow FiO2 Time Delivery Rate 03/02/18 72 12:01 03/02/18 97.8 18 130/58 96 Room Air 11:30 (82) 02/26/18 21 10:40 Intake and Output 03/01/18 03/01/1803/02/19 1515:00 23:00 07:00 IntakeIntake Total 175 ml OutputOutput Total 2500 ml 0 ml BalanceBalance -2500 ml 175 ml Exam Constitutional: alert, oriented Respiratory: clear to auscultation, normal air movement Cardiovascular: regular rate and rhythm, nl pulses Gastrointestinal: soft, nl liver, spleen, non-tender Medications Medications Current Medications Clopidogrel Bisulfate (plaVIX) 75 mg DAILY PO Last administered on 03/02/18 08:54; Admin Dose 75 MG; Start 02/23/18 at 09:00 Isosorbide Mononitrate (Imdur) 30 mg DAILY PO Last administered on 03/02/18 08:54; Admin Dose 30 MG; Start 02/22/18 at 23:30 Famotidine (Pepcid) 10 mg DAILY PO Last administered on 03/02/18 08:53; Admin Dose 10 MG; Start 02/23/18 at 09:00 Insulin Aspart (Novolog Insulin Pen) NOVOLOG *MILD* ALGORITHM WITH MEALS BEDTIME SC Last administered on 02/28/18 20:54; Admin Dose 1 UNIT; Start 02/23/18 at 08:00 Levothyroxine Sodium (Synthroid) 200 mcg DAILY@0700 PO Last administered on 03/02/18 06:10; Admin Dose 200 MCG; Start 02/23/18 at 07:00 Levothyroxine Sodium (Synthroid) 25 mcg DAILY@0700 PO Last administered on 03/02/18 06:09; Admin Dose 25 MCG; Start 02/23/18 at 07:00 Aspirin (Aspirin) 81 mg DAILY PO Last administered on 03/02/18 08:52; Admin Dose 81 MG; Start 02/23/18 at 09:00 Atorvastatin Calcium (Lipitor) 80 mg DAILY PO Last administered on 03/02/18 08:52; Admin Dose 80 MG; Start 02/23/18 at 09:00 Amlodipine Besylate (Norvasc) 5 mg DAILY PO Last administered on 03/02/18 08:53; Admin Dose 5 MG; Start 02/23/18 at 09:00 Hydralazine HCl (Apresoline) 50 mg Q8H PRN PO ELEVATED SYSTOLIC BP; Start 02/22/18 at 23:30 Heparin Sodium (Porcine) (Heparin (5000 Units/1ml)) 5,000 unit BID SC Last administered on 03/02/18at 09:02; Admin Dose 5,000 UNIT; Start 02/23/18 at 09:00 Albuterol/ Ipratropium (Duoneb) 3 ml Q6H RESP THERAPY PRN HHN sob; Start 02/22/18 at 23:30 Miscellaneous Information 1 ea NOTE XX ; Start 02/22/18 at 23:30 Glucose (Glutose) 15 gm Q15M PRN PO DECREASED GLUCOSE; Start 02/22/18 at 23:30 Glucose (Glutose) 22.5 gm Q15M PRN PO DECREASED GLUCOSE; Start 02/22/18 at 23:30 Dextrose (D50w Syringe) 25 ml Q15M PRN IV DECREASED GLUCOSE; Start 02/22/18 at 23:30 Dextrose (D50w Syringe) 50 ml Q15M PRN IV DECREASED GLUCOSE; Start 02/22/18 at 23:30 Glucagon (Glucagen) 1 mg Q15M PRN IM DECREASED GLUCOSE; Start 02/22/18 at 23:30 Glucose (Glutose) 15 gm Q15M PRN BUCCAL DECREASED GLUCOSE; Start 02/22/18 at 23:30 Morphine Sulfate (morphine) 3 mg Q4H PRN IV SEVERE PAIN LEVEL 7-10 Last administered on 02/26/18at 21:59; Admin Dose 3 MG; Start 02/23/18 at 03:00 Multivit/Ca Carb/ B Cmplx/FA/Prenat (Rizwana-Rodolfo) 1 tab DAILY PO Last administered on 03/02/18at 08:54; Admin Dose 1 TAB; Start 02/23/18 at 09:00 Epoetin Geo (Epogen (Esrd)) 8,000 units AFTER DIALYSIS SC Last administered on 03/01/18at 21:33; Admin Dose 8,000 UNITS; Start 02/23/18 at 08:00 Tiotropium [place] (Spiriva) 1 inh DAILY INH Last administered on 03/02/18at 08:54; Admin Dose 1 INH; Start 02/23/18 at 15:00 Fluticasone/ Vilanterol (Breo Ellipta 100-25 Mcg Inh) 1 inh DAILY INH Last administered on 03/02/18at 09:03; Admin Dose 1 INH; Start 02/23/18 at 15:00 Cholecalciferol (Vitamin D) 2,000 unit DAILY PO Last administered on 03/02/18 09:06; Admin Dose 2,000 UNIT; Start 02/24/18 at 09:00 Calcitriol (Rocaltrol) 0.25 mcg AC BREAKFAST PO Last administered on 03/02/18 06:09; Admin Dose 0.25 MCG; Start 02/24/18 at 07:00 Sevelamer Carbonate (Renvela) 800 mg WITH MEALS PO Last administered on 03/02/18 12:17; Admin Dose 800 MG; Start 02/24/18 at 08:00 Metoprolol Tartrate (Lopressor) 50 mg Q12 PO Last administered on 03/02/18 08:54; Admin Dose 50 MG; Start 02/24/18 at 21:00 Morphine Sulfate (morphine) 6 mg Q4H PRN PO SEVERE PAIN LEVEL 7-10 Last administered on 03/01/18 21:21; Admin Dose 6 MG; Start 02/24/18 at 17:00 Diphenhydramine HCl (Benadryl) 25 mg Q8H PRN IV PRURITUS Last administered on 02/27/18 21:37; Admin Dose 25 MG; Start 02/25/18 at 20:00 Levofloxacin (Levaquin) 250 mg DAILY@06 PO Last administered on 03/02/18 06:0 9; Admin Dose 250 MG; Start 02/27/18 at 06:00; Stop 03/04/18 at 05:59 Diphenhydramine HCl (Benadryl) 25 mg Q6H PRN PO ITCHING Last administered on 03/01/18 21:39; Admin Dose 25 MG; Start 02/28/18 at 15:00 MARGARITO VIVAR MD Mar 02, 2018 14:15
--- NOTE | 2018-03-02 15:24 | CONS ---
Date/Time of Note Date/Time of Note DATE: 03/02/18 TIME: 15:23 Assessment/Plan Assessment/Plan Assessment/Plan Possible bronchitis Chest pain with coughing End-stage renal disease on hemodialysis CAD with history of PCI History of hypertension Diabetes Dyslipidemia -Cough is improving and chest discomfort is improving. As mentioned serial cardiac enzymes have been negative and symptoms do not appear cardiac in origin. -Patient with known history of coronary artery disease with chronic total occlusion of RCA, patient has been pending intervention to be done at [facility]. -We will continue anti-platelet therapy, beta-mariaelena as heart rate and blood pressure permits, continue long-acting nitroglycerin as blood pressure tolerates. Result Diagram: 02/26/18 0508 02/26/18 0508 Results 24hrs Laboratory Tests Test 03/01/18 16:54 03/01/18 23:24 03/02/18 08:04 03/02/18 11:36 Bedside Glucose 110 83 116 103 Consultation Date/Type/Reason Admit Date/Time Feb 22, 2018 at 23:02 Initial Consult Date Type of Consult cv 24 HR Interval Summary Free Text/Dictation Still complains of chest pain with coughing and slightly improved. Denies shortness of breath Exam/Review of Systems Vital Signs Vitals Vital Signs Date Temp Pulse Resp B/P (MAP) Pulse Ox O2 O2 Flow FiO2 Time Delivery Rate 03/02/18 72 12:01 03/02/18 97.8 18 130/58 96 Room Air 11:30 (82) 02/26/18 21 10:40 Intake and Output 03/01/18 03/01/18 03/02/18 1414:59 22:59 06:59 IntakeIntake Total 175 ml OutputOutput Total 2500 ml 0 ml BalanceBalance -2500 ml 175 ml Exam No apparent distress Constitutional: alert, oriented Head: normocephalic Respiratory: other (Coarse breath sounds bilaterally, no wheezing) Cardiovascular: regular rate and rhythm, other (S1-S2 heard) Gastrointestinal: soft, non-tender, bowel sounds Extremities: edema (Trace) Medications Medications Current Medications Clopidogrel Bisulfate (plaVIX) 75 mg DAILY PO Last administered on 03/02/18at 0 8:54; Admin Dose 75 MG; Start 02/23/18 at 09:00 Isosorbide Mononitrate (Imdur) 30 mg DAILY PO Last administered on 03/02/18 08:54; Admin Dose 30 MG; Start 02/22/18 at 23:30 Famotidine (Pepcid) 10 mg DAILY PO Last administered on 03/02/18 08:53; Admin Dose 10 MG; Start 02/23/18 at 09:00 Insulin Aspart (Novolog Insulin Pen) NOVOLOG *MILD* ALGORITHM WITH MEALS BEDTIME SC Last administered on 02/28/18 20:54; Admin Dose 1 UNIT; Start 02/23/18 at 08:00 Levothyroxine Sodium (Synthroid) 200 mcg DAILY@0700 PO Last administered on 03/02/18 06:10; Admin Dose 200 MCG; Start 02/23/18 at 07:00 Levothyroxine Sodium (Synthroid) 25 mcg DAILY@0700 PO Last administered on 03/02/18 06:09; Admin Dose 25 MCG; Start 02/23/18 at 07:00 Aspirin (Aspirin) 81 mg DAILY PO Last administered on 03/02/18 08:52; Admin Dose 81 MG; Start 02/23/18 at 09:00 Atorvastatin Calcium (Lipitor) 80 mg DAILY PO Last administered on 03/02/18 08:52; Admin Dose 80 MG; Start 02/23/18 at 09:00 Amlodipine Besylate (Norvasc) 5 mg DAILY PO Last administered on 03/02/18 08:53; Admin Dose 5 MG; Start 02/23/18 at 09:00 Hydralazine HCl (Apresoline) 50 mg Q8H PRN PO ELEVATED SYSTOLIC BP; Start 02/22/18 at 23:30 Heparin Sodium (Porcine) (Heparin (5000 Units/1ml)) 5,000 unit BID SC Last administered on 03/02/18 09:02; Admin Dose 5,000 UNIT; Start 02/23/18 at 09:00 Albuterol/ Ipratropium (Duoneb) 3 ml Q6H RESP THERAPY PRN HHN sob; Start 02/22/18 at 23:30 Miscellaneous Information 1 ea NOTE XX ; Start 02/22/18 at 23:30 Glucose (Glutose) 15 gm Q15M PRN PO DECREASED GLUCOSE; Start 02/22/18 at 23:30 Glucose (Glutose) 22.5 gm Q15M PRN PO DECREASED GLUCOSE; Start 02/22/18 at 23:30 Dextrose (D50w Syringe) 25 ml Q15M PRN IV DECREASED GLUCOSE; Start 02/22/18 at 23:30 Dextrose (D50w Syringe) 50 ml Q15M PRN IV DECREASED GLUCOSE; Start 02/22/18 at 23:30 Glucagon (Glucagen) 1 mg Q15M PRN IM DECREASED GLUCOSE; Start 02/22/18 at 23:30 Glucose (Glutose) 15 gm Q15M PRN BUCCAL DECREASED GLUCOSE; Start 02/22/18 at 23:30 Morphine Sulfate (morphine) 3 mg Q4H PRN IV SEVERE PAIN LEVEL 7-10 Last administered on 02/26/18 21:59; Admin Dose 3 MG; Start 02/23/18 at 03:00 Multivit/Ca Carb/ B Cmplx/FA/Prenat (Rizwana-Rodolfo) 1 tab DAILY PO Last administered on 03/02/18 08:54; Admin Dose 1 TAB; Start 02/23/18 at 09:00 Epoetin Geo (Epogen (Esrd)) 8,000 units AFTER DIALYSIS SC Last administered on 03/01/18 21:33; Admin Dose 8,000 UNITS; Start 02/23/18 at 08:00 Tiotropium [place] (Spiriva) 1 inh DAILY INH Last administered on 03/02/18 08:54; Admin Dose 1 INH; Start 02/23/18 at 15:00 Fluticasone/ Vilanterol (Breo Ellipta 100-25 Mcg Inh) 1 inh DAILY INH Last administered on 03/02/18 09:03; Admin Dose 1 INH; Start 02/23/18 at 15:00 Cholecalciferol (Vitamin D) 2,000 unit DAILY PO Last administered on 03/02/18 09:06; Admin Dose 2,000 UNIT; Start 02/24/18 at 09:00 Calcitriol (Rocaltrol) 0.25 mcg AC BREAKFAST PO Last administered on 03/02/18 06:09; Admin Dose 0.25 MCG; Start 02/24/18 at 07:00 Sevelamer Carbonate (Renvela) 800 mg WITH MEALS PO Last administered on 03/02/18 12:17; Admin Dose 800 MG; Start 02/24/18 at 08:00 Metoprolol Tartrate (Lopressor) 50 mg Q12 PO Last administered on 03/02/18 08:54; Admin Dose 50 MG; Start 02/24/18 at 21:00 Morphine Sulfate (morphine) 6 mg Q4H PRN PO SEVERE PAIN LEVEL 7-10 Last administered on 03/01/18 21:21; Admin Dose 6 MG; Start 02/24/18 at 17:00 Diphenhydramine HCl (Benadryl) 25 mg Q8H PRN IV PRURITUS Last administered on 02/27/18at 21:37; Admin Dose 25 MG; Start 02/25/18 at 20:00 Levofloxacin (Levaquin) 250 mg DAILY@06 PO Last administered on 03/02/18 06:09; Admin Dose 250 MG; Start 02/27/18 at 06:00; Stop 03/04/18 at 05:59 Diphenhydramine HCl (Benadryl) 25 mg Q6H PRN PO ITCHING Last administered on 03/01/18at 21:39; Admin Dose 25 MG; Start 02/28/18 at 15:00 Heri Schaefer DO Mar 02, 2018 15:24
[2018-03-02] MEDS: morphine 4 MG/ML VIAL IV PRN (17:08)
[2018-03-02] MEDS: ONDANSETRON 4 MG INJ IV PRN (17:08)
--- NOTE | 2018-03-02 18:23 | NUR ---
END OF SHIFT REPORT: Uneventful day for patient. No new complaints. VSS. Medicated once for pain and for nausea with good relief. Called [facility] again to inform them patient still in the hospital for hemodialysis tomorrow.
[2018-03-02] MEDS: DIPHENHYDRAMINE 50 MG INJ IV PRN (20:43)
[2018-03-03] VITALS (26 sets, daily range): BP systolic 115–152; BP diastolic 53–85; PULSE 64–84; RESP 16–18
[2018-03-03] MEDS: morphine 4 MG/ML VIAL IV PRN ×3 (00:22→21:19)
[2018-03-03] MEDS: LEVOFLOXACIN 250 MG TAB PO SCH (06:23)
[2018-03-03] MEDS: LEVOTHYROXINE 100 MCG TAB PO SCH (06:23)
[2018-03-03] MEDS: LEVOTHYROXINE 25 MCG TAB PO SCH (06:23)
[2018-03-03] MEDS: CALCITRIOL 0.25 MCG CAP PO SCH (06:23)
--- NOTE | 2018-03-03 07:04 | NUR ---
EOSS: Patient alert and oriented, ambulatory. Patient's VS were WNL. Patient c/o of pain in neck and back, pain medication administered x2. Patient c/o of itchiness, Benadryl administered x1. Patient slept most of the night, no c/o of chest pain or shortness of breath. Hourly rounding conducted. Patient will have HD this morning. Continue with plan of care. Will endorse to AM nurse.
[2018-03-03] MEDS: INSULIN ASPART [NOVOLOG] 3 ML PEN SC SCH ×4 (07:56→21:00)
[2018-03-03] MEDS: CLOPIDOGREL 75 MG TAB PO SCH (08:09)
[2018-03-03] MEDS: ATORVASTATIN 80 MG TAB PO SCH (08:09)
[2018-03-03] MEDS: FAMOTIDINE 20 MG TAB PO SCH (08:09)
[2018-03-03] MEDS: ASPIRIN 81 MG TAB PO SCH (08:09)
[2018-03-03] MEDS: CHOLECALCIFEROL 2,000 UNIT CAP PO SCH (08:09)
[2018-03-03] MEDS: MULTIVIT/CA CARB/B CMPLX/FA TAB PO SCH (08:09)
[2018-03-03] MEDS: SEVELAMER CARBONATE 800 MG TABLET PO SCH ×3 (08:09→17:36)
[2018-03-03] MEDS: TIOTROPIUM 18 MCG CAPSULE INHA DEV INH SCH (08:09)
[2018-03-03] MEDS: FLUTICASONE/VILANTEROL 100-25 INH SCH (08:14)
--- NOTE | 2018-03-03 08:24 | PN ---
DATE: 03/03/2018 SUBJECTIVE: The patient is stable, no events overnight. No fever, chills, nausea, or vomiting. OBJECTIVE: VITAL SIGNS: Blood pressure is 118/53, pulse 65, respirations 18, temperature 97.0. HEENT: Head is normocephalic. NECK: Supple. HEART: Regular rate. LUNGS: Show diminished breath sounds at the base. ABDOMEN: Soft, nontender to palpation. No rebound or guarding. EXTREMITIES: Negative for clubbing, cyanosis, no edema. DERMATOLOGIC: No rashes. MUSCULOSKELETAL: No joint effusion. NEUROLOGIC: No change in exam. MEDICATIONS: Reviewed. LABORATORY DATA: Reviewed. ASSESSMENT AND PLAN: 1. End-stage renal disease. The patient is scheduled for dialysis today. We will dialyze for 3 rosemary rs 3k bath, calcium 2.5. 2. Hyperkalemia, improved. Continue dialysis and low potassium bath. 3. Volume overload, improving. Continue ultrafiltration dialysis. 4. Hypertension. Continue current blood pressure regimen. 5. Anemia. Monitor hemoglobin and hematocrit levels. Continue Epogen. 6. Mineral bone disorder. Continue vitamin D analogs and phosphate binders. Continue to monitor ca lcium and phosphorus levels. 7. Bronchitis, improving. 8. Diabetes. Continue current insulin regimen. 9. Coronary artery disease. Continue medical management. Dictated By: HARVEY LUCIO DO NR/NTS Conf#: [id number] DID#: [id number] CC: KEZIA BRANDT DO; CHEYENNE OSBORN MD;*EndCC*
[2018-03-03] MEDS: HEPARIN 5,000 UNIT/1 ML VIAL SC SCH ×2 (08:25→21:15)
[2018-03-03] MEDS: DIPHENHYDRAMINE 25 MG CAP PO PRN ×2 (08:26→16:44)
[2018-03-03] MEDS: AMLODIPINE 5 MG TAB PO SCH ×2 (09:00→14:04)
[2018-03-03] MEDS: METOPROLOL 25 MG TAB PO SCH ×3 (09:00→21:13)
[2018-03-03] MEDS: ISOSORBIDE MONONITRATE(SR)30 MG TAB PO SCH ×2 (09:00→14:04)
--- NOTE | 2018-03-03 13:03 | PN ---
Date/Time of Note Date/Time of Note DATE: 03/03/18 TIME: 12:59 Assessment/Plan VTE Prophylaxis Risk score (from Ns)>0 risk: 2 SCD applied (from Ns): No SCD contraindicated: low risk/ambulating Pharmacological prophylaxis: heparin Lines/Catheters IV Cathe[facility]from [facility] Saline Lock Assessment/Plan Problems: (1) End stage renal disease on dialysis due to type 2 diabetes mellitus Status: Chronic Comment: Patient is being dialyzed at this time. Again we are handicapped by her ability to discharge this patient due to the logistics for the transportation. I have just spoken to the case technician again now who advises that they will follow-up to make sure that the transportation is in place. Since she is being dialyzed now she can be discharged as her next dialysis would be due in 2 days. However I need to have information that this will be a safe discharge given the frequency of the readmissions. Alternatively appropriately an ECF would work. One hopes that she is not lost her home and is now in a different situation due to the duration of time she has been in the hospital (2) DM (diabetes mellitus), type 2 Status: Chronic Comment: Adequate control Qualifiers: Diabetes mellitus alf insulin use: with termite exterminator helper use Diabetes mellitus complication status: with kidney complications Diabetes mellitus complication detail: with chronic kidney disease Chronic kidney disease stage: on chronic dialysis Qualified Codes: E11.22 - Type 2 diabetes mellitus with diabetic chronic kidney disease; N18.6 - End stage renal disease; Z79.4 - keno terminal operator (current) use of insulin; Z99.2 - Dependence on renal dialysis (3) Essential (primary) hypertension Status: Chronic Comment: Adequate control (4) Hyperlipidemia Status: Chronic Comment: Stable on statin therapy Qualifiers: Hyperlipidemia type: pure hypercholesterolemia Qualified Codes: E78.00 - Pure hypercholesterolemia, unspecified (5) Major depressive disorder, single episode, severe without psychotic features Status: Chronic Comment: Noted (6) Papillary thyroid carcinoma Onset Date: ~ 02/2013 Status: Chronic Comment: Controlled and stable and quiescent (7) Acute bronchitis Status: Acute Comment: Improving nicely. Qualifiers: Bronchitis organism: unspecified organism Qualified Codes: J20.9 - Acute bronchitis, unspecified Results 24hrs Laboratory Tests Test 03/02/18 16:59 03/02/18 20:48 03/03/18 07:29 03/03/18 11:56 Bedside Glucose 109 136 131 104 Subjective 24 Hr Interval Summary Free Text/Dictation Patient is being dialyzed and offers no new complaints Constitutional: no complaints Respiratory: cough (Cough is improved) Cardiovascular: no complaints Gastrointestinal: no complaints Genitourinary: no complaints Exam/Review of Systems Vital Signs Vitals Vital Signs Date Temp Pulse Resp B/P (MAP) Pulse Ox O2 O2 Flow FiO2 Time Delivery Rate 03/03/18 73 12:45 03/03/18 97.4 18 135/72 100 Nasal 11:25 (93) Cannula 03/03/18 2.0 10:15 03/03/18 21 01:24 Intake and Output 03/02/18 03/02/18 03/03/18 1515:00 23:00 07:00 IntakeIntake Total 580 ml 60 ml OutputOutput Total 0 ml 0 ml BalanceBalance 580 ml 60 ml Exam Constitutional: alert, oriented Respiratory: clear to auscultation, normal air movement Cardiovascular: regular rate and rhythm, nl pulses Gastrointestinal: soft, nl liver, spleen, non-tender Medications Medications Current Medications Clopidogrel Bisulfate (plaVIX) 75 mg DAILY PO Last administered on 03/03/18 08:09; Admin Dose 75 MG; Start 02/23/18 at 09:00 Isosorbide Mononitrate (Imdur) 30 mg DAILY PO Last administered on 03/02/18 08:54; Admin Dose 30 MG; Start 02/22/18 at 23:30 Famotidine (Pepcid) 10 mg DAILY PO Last administered on 03/03/18 08:09; Admin Dose 10 MG; Start 02/23/18 at 09:00 Insulin Aspart (Novolog Insulin Pen) NOVOLOG *MILD* ALGORITHM WITH MEALS BEDTIME SC Last administered on 02/28/18 20:54; Admin Dose 1 UNIT; Start 02/23/18 at 08:00 Levothyroxine Sodium (Synthroid) 200 mcg DAILY@0700 PO Last administered on 03/03/18 06:23; Admin Dose 200 MCG; Start 02/23/18 at 07:00 Levothyroxine Sodium (Synthroid) 25 mcg DAILY@0700 PO Last administered on 03/03/18 06:23; Admin Dose 25 MCG; Start 02/23/18 at 07:00 Aspirin (Aspirin) 81 mg DAILY PO Last administered on 03/03/18at 08:09; Admin Dose 81 MG; Start 02/23/18 at 09:00 Atorvastatin Calcium (Lipitor) 80 mg DAILY PO Last administered on 03/03/18at 08:09; Admin Dose 80 MG; Start 02/23/18 at 09:00 Amlodipine Besylate (Norvasc) 5 mg DAILY PO Last administered on 03/02/18at 08:53; Admin Dose 5 MG; Start 02/23/18 at 09:00 Hydralazine HCl (Apresoline) 50 mg Q8H PRN PO ELEVATED SYSTOLIC BP; Start 02/22/18 at 23:30 Heparin Sodium (Porcine) (Heparin (5000 Units/1ml)) 5,000 unit BID SC Last administered on 03/03/18at 08:25; Admin Dose 5,000 UNIT; Start 02/23/18 at 09:00 Albuterol/ Ipratropium (Duoneb) 3 ml Q6H RESP THERAPY PRN HHN sob; Start 02/22/18 at 23:30 Miscellaneous Information 1 ea NOTE XX ; Start 02/22/18 at 23:30 Glucose (Glutose) 15 gm Q15M PRN PO DECREASED GLUCOSE; Start 02/22/18 at 23:30 Glucose (Glutose) 22.5 gm Q15M PRN PO DECREASED GLUCOSE; Start 02/22/18 at 23:30 Dextrose (D50w Syringe) 25 ml Q15M PRN IV DECREASED GLUCOSE; Start 02/22/18 at 23:30 Dextrose (D50w Syringe) 50 ml Q15M PRN IV DECREASED GLUCOSE; Start 02/22/18 at 23:30 Glucagon (Glucagen) 1 mg Q15M PRN IM DECREASED GLUCOSE; Start 02/22/18 at 23:30 Glucose (Glutose) 15 gm Q15M PRN BUCCAL DECREASED GLUCOSE; Start 02/22/18 at 23:30 Morphine Sulfate (morphine) 3 mg Q4H PRN IV SEVERE PAIN LEVEL 7-10 Last administered on 03/03/18at 06:32; Admin Dose 3 MG; Start 02/23/18 at 03:00 Multivit/Ca Carb/ B Cmplx/FA/Prenat (Rizwana-Rodolfo) 1 tab DAILY PO Last administered on 03/03/18at 08:09; Admin Dose 1 TAB; Start 02/23/18 at 09:00 Epoetin Geo (Epogen (Esrd)) 8,000 units AFTER DIALYSIS SC Last administered on 03/01/18 21:33; Admin Dose 8,000 UNITS; Start 02/23/18 at 08:00 Tiotropium [place] (Spiriva) 1 inh DAILY INH Last administered on 03/03/18 08:09; Admin Dose 1 INH; Start 02/23/18 at 15:00 Fluticasone/ Vilanterol (Breo Ellipta 100-25 Mcg Inh) 1 inh DAILY INH Last administered on 03/03/18 08:14; Admin Dose 1 INH; Start 02/23/18 at 15:00 Cholecalciferol (Vitamin D) 2,000 unit DAILY PO Last administered on 03/03/18 08:09; Admin Dose 2,000 UNIT; Start 02/24/18 at 09:00 Calcitriol (Rocaltrol) 0.25 mcg AC BREAKFAST PO Last administered on 03/03/18 06:23; Admin Dose 0.25 MCG; Start 02/24/18 at 07:00 Sevelamer Carbonate (Renvela) 800 mg WITH MEALS PO Last administered on 03/03/18 08:09; Admin Dose 800 MG; Start 02/24/18 at 08:00 Metoprolol Tartrate (Lopressor) 50 mg Q12 PO Last administered on 03/02/18 20:42; Admin Dose 50 MG; Start 02/24/18 at 21:00 Morphine Sulfate (morphine) 6 mg Q4H PRN PO SEVERE PAIN LEVEL 7-10 Last administered on 03/01/18 21:21; Admin Dose 6 MG; Start 02/24/18 at 17:00 Diphenhydramine HCl (Benadryl) 25 mg Q8H PRN IV PRURITUS Last administered on 03/02/18 20:43; Admin Dose 25 MG; Start 02/25/18 at 20:00 Levofloxacin (Levaquin) 250 mg DAILY@06 PO Last administered on 03/03/18 06:23; Admin Dose 250 MG; Start 02/27/18 at 06:00; Stop 03/04/18 at 05:59 Diphenhydramine HCl (Benadryl) 25 mg Q6H PRN PO ITCHING Last administered on 03/03/18 08:26; Admin Dose 25 MG; Start 02/28/18 at 15:00 Ondansetron HCl (Zofran Inj) 4 mg Q6H PRN IV NAUSEA AND/OR VOMITING Last administered on 03/02/18at 17:08; Admin Dose 4 MG; Start 03/02/18 at 17:00 MARGARITO VIVAR MD Mar 03, 2018 13:03
--- NOTE | 2018-03-03 13:10 | CONS ---
Assessment/Plan Assessment/Plan Hospital Course Possible bronchitis Chest pain with coughing End-stage renal disease on hemodialysis CAD with history of PCI History of hypertension Diabetes Dyslipidemia Assessment/Plan no changes in cardiac mgt Results 24hrs Laboratory Tests Test 03/02/18 16:59 03/02/18 20:48 03/03/18 07:29 03/03/18 11:56 Bedside Glucose 109 136 131 104 Consultation Date/Type/Reason Admit Date/Time Feb 22, 2018 at 23:02 Initial Consult Date Type of Consult cv 24 HR Interval Summary Free Text/Dictation no chest pain, no sob, being HD, resting, with family resting at bedside Detailed Summary Respiratory: no complaints Cardiovascular: no complaints Gastrointestinal: no complaints Musculoskeletal: no complaints Skin: no complaints Neurologic: no complaints Exam/Review of Systems Vital Signs Vitals Vital Signs Date Temp Pulse Resp B/P (MAP) Pulse Ox O2 O2 Flow FiO2 Time Delivery Rate 03/03/18 73 13:00 03/03/18 97.4 18 135/72 100 Nasal 11:25 (93) Cannula 03/03/18 2.0 10:15 03/03/18 21 01:24 Intake and Output 03/02/18 03/02/18 03/03/18 1515:00 23:00 07:00 IntakeIntake Total 580 ml 60 ml OutputOutput Total 0 ml 0 ml BalanceBalance 580 ml 60 ml Exam Constitutional: frail Head: normocephalic, atraumatic Neck: supple Respiratory: clear to auscultation Cardiovascular: regular rate and rhythm Gastrointestinal: soft Musculoskeletal: nl extremities to inspection Medications Medications Current Medications Clopidogrel Bisulfate (plaVIX) 75 mg DAILY PO Last administered on 03/03/18at 08:09; Admin Dose 75 MG; Start 02/23/18 at 09:00 Isosorbide Mononitrate (Imdur) 30 mg DAILY PO Last administered on 03/02/18at 08:54; Admin Dose 30 MG; Start 02/22/18 at 23:30 Famotidine (Pepcid) 10 mg DAILY PO Last administered on 03/03/18at 08:09; Admin Dose 10 MG; Start 02/23/18 at 09:00 Insulin Aspart (Novolog Insulin Pen) NOVOLOG *MILD* ALGORITHM WITH MEALS BEDTIME SC Last administered on 02/28/18at 20:54; Admin Dose 1 UNIT; Start 02/23/18 at 08:00 Levothyroxine Sodium (Synthroid) 200 mcg DAILY@0700 PO Last administered on 03/03/18at 06:23; Admin Dose 200 MCG; Start 02/23/18 at 07:00 Levothyroxine Sodium (Synthroid) 25 mcg DAILY@0700 PO Last administered on 03/03/18at 06:23; Admin Dose 25 MCG; Start 02/23/18 at 07:00 Aspirin (Aspirin) 81 mg DAILY PO Last administered on 03/03/18at 08:09; Admin Dose 81 MG; Start 02/23/18 at 09:00 Atorvastatin Calcium (Lipitor) 80 mg DAILY PO Last administered on 03/03/18at 08:09; Admin Dose 80 MG; Start 02/23/18 at 09:00 Amlodipine Besylate (Norvasc) 5 mg DAILY PO Last administered on 03/02/18at 08:53; Admin Dose 5 MG; Start 02/23/18 at 09:00 Hydralazine HCl (Apresoline) 50 mg Q8H PRN PO ELEVATED SYSTOLIC BP; Start 02/22/18 at 23:30 Heparin Sodium (Porcine) (Heparin (5000 Units/1ml)) 5,000 unit BID SC Last administered on 03/03/18at 08:25; Admin Dose 5,000 UNIT; Start 02/23/18 at 09:00 Albuterol/ Ipratropium (Duoneb) 3 ml Q6H RESP THERAPY PRN HHN sob; Start 02/22/18 at 23:30 Miscellaneous Information 1 ea NOTE XX ; Start 02/22/18 at 23:30 Glucose (Glutose) 15 gm Q15M PRN PO DECREASED GLUCOSE; Start 02/22/18 at 23:30 Glucose (Glutose) 22.5 gm Q15M PRN PO DECREASED GLUCOSE; Start 02/22/18 at 23:30 Dextrose (D50w Syringe) 25 ml Q15M PRN IV DECREASED GLUCOSE; Start 02/22/18 at 23:30 Dextrose (D50w Syringe) 50 ml Q15M PRN IV DECREASED GLUCOSE; Start 02/22/18 at 23:30 Glucagon (Glucagen) 1 mg Q15M PRN IM DECREASED GLUCOSE; Start 02/22/18 at 23:30 Glucose (Glutose) 15 gm Q15M PRN BUCCAL DECREASED GLUCOSE; Start 02/22/18 at 23:30 Morphine Sulfate (morphine) 3 mg Q4H PRN IV SEVERE PAIN LEVEL 7-10 Last administered on 03/03/18 06:32; Admin Dose 3 MG; Start 02/23/18 at 03:00 Multivit/Ca Carb/ B Cmplx/FA/Prenat (Rizwana-Rodolfo) 1 tab DAILY PO Last administered on 03/03/18 08:09; Admin Dose 1 TAB; Start 02/23/18 at 09:00 Epoetin Geo (Epogen (Esrd)) 8,000 units AFTER DIALYSIS SC Last administered on 03/01/18 21:33; Admin Dose 8,000 UNITS; Start 02/23/18 at 08:00 Tiotropium Raccoon (Spiriva) 1 inh DAILY INH Last administered on 03/03/18 08:09; Admin Dose 1 INH; Start 02/23/18 at 15:00 Fluticasone/ Vilanterol (Breo Ellipta 100-25 Mcg Inh) 1 inh DAILY INH Last administered on 03/03/18 08:14; Admin Dose 1 INH; Start 02/23/18 at 15:00 Cholecalciferol (Vitamin D) 2,000 unit DAILY PO Last administered on 03/03/18 08:09; Admin Dose 2,000 UNIT; Start 02/24/18 at 09:00 Calcitriol (Rocaltrol) 0.25 mcg AC BREAKFAST PO Last administered on 03/03/18 06:23; Admin Dose 0.25 MCG; Start 02/24/18 at 07:00 Sevelamer Carbonate (Renvela) 800 mg WITH MEALS PO Last administered on 03/03/18 13:04; Admin Dose 800 MG; Start 02/24/18 at 08:00 Metoprolol Tartrate (Lopressor) 50 mg Q12 PO Last administered on 03/02/18 20:42; Admin Dose 50 MG; Start 02/24/18 at 21:00 Morphine Sulfate (morphine) 6 mg Q4H PRN PO SEVERE PAIN LEVEL 7-10 Last administered on 03/01/18 21:21; Admin Dose 6 MG; Start 02/24/18 at 17:00 Diphenhydramine HCl (Benadryl) 25 mg Q8H PRN IV PRURITUS Last administered on 1/21/19at 20:43; Admin Dose 25 MG; Start 02/25/18 at 20:00 Levofloxacin (Levaquin) 250 mg DAILY@06 PO Last administered on 03/03/18at 06:23; Admin Dose 250 MG; Start 02/27/18 at 06:00; Stop 03/04/18 at 05:59 Diphenhydramine HCl (Benadryl) 25 mg Q6H PRN PO ITCHING Last administered on 03/03/18at 08:26; Admin Dose 25 MG; Start 02/28/18 at 15:00 Ondansetron HCl (Zofran Inj) 4 mg Q6H PRN IV NAUSEA AND/OR VOMITING Last administered on 03/02/18at 17:08; Admin Dose 4 MG; Start 03/02/18 at 17:00 Date/Time of Note Date/Time of Note DATE: 03/03/18 TIME: 13:09 HUMAIRA CELESTIN MD Mar 03, 2018 13:10
[2018-03-03] MEDS: EPOETIN 4000 UNITS/1 ML INJ (ESRD) SC SCH (16:46)
--- NOTE | 2018-03-03 18:40 | NUR ---
EOSS: PT AO x 4, VSS, had HD today. All due meds given. PRN PO Benadryl given for itching. Poor appetite. Pending discharge once transportation to and from outpatient dialysis is arranged. Will endorse accordingly to oncoming shift.
[2018-03-04] VITALS (7 sets, daily range): BP systolic 117–126; BP diastolic 64; PULSE 68–85; RESP 18–20
[2018-03-04] MEDS: DIPHENHYDRAMINE 50 MG INJ IV PRN ×2 (04:17→10:38)
[2018-03-04] MEDS: LEVOTHYROXINE 100 MCG TAB PO SCH (06:00)
[2018-03-04] MEDS: LEVOTHYROXINE 25 MCG TAB PO SCH (06:00)
[2018-03-04] MEDS: CALCITRIOL 0.25 MCG CAP PO SCH (06:34)
--- NOTE | 2018-03-04 06:43 | NUR ---
EOSS: No acute events overnight. Patient requested pain medication x1 and Benadryl x1. VSS WNL. Patient denied any chest pain or shortness of breath. AM care offered, but refused. Hourly rounding conducted. Patient still waiting for transportation to be set up to and from HD center. Continue with plan of care. Will endorse to AM nurse.
[2018-03-04] MEDS: INSULIN ASPART [NOVOLOG] 3 ML PEN SC SCH ×2 (07:20→12:32)
--- NOTE | 2018-03-04 07:56 | NUR ---
Hemodialysis Order: Confirmation #[id number]. Spoke to Jessica. HD ordered for tomorrow.
--- NOTE | 2018-03-04 08:22 | PN ---
DATE: 03/04/2018 SUBJECTIVE: The patient is stable, no events overnight. The patient had hemodialysis yesterday and tolerated well. OBJECTIVE: VITAL SIGNS: Blood pressure is 126/64, pulse 81, respirations 20, temperature 97.9. HEENT: Head is normocephalic. NECK: Supple. HEART: Regular rate. LUNGS: Show diminished breath sounds at the base. ABDOMEN: Soft, nontender to palpation without rebound or guarding. EXTREMITIES: Negative for clubbing, cyanosis, no edema. DERMATOLOGIC: No rashes. MUSCULOSKELETAL: No joint effusions. NEUROLOGIC: No change in exam. MEDICATIONS: The patient's medications have been reviewed. LABORATORY DATA: Reviewed. ASSESSMENT AND PLAN: 1. End-stage renal disease. The patient's had hemodialysis yesterday, tolerated well. Plan is for dialysis again tomorrow. 2. Hyperkalemia, improved. Continue dialysis on low potassium bath. 3. Volume overload, improved. Continue ultrafiltration dialysis. 4. Hypertension. Continue current blood pressure regimen. 5. Anemia. Continue to monitor hemoglobin and hematocrit levels. Continue Epogen. 6. Mineral bone disorder. Continue to monitor calcium and phosphorus levels. Continue phosphate bi nders and vitamin D analogs. 7. Bronchitis, improving. 8. Diabetes. Continue current insulin regimen. 9. Coronary artery disease. Continue medical management. Dictated By: HARVEY LUCIO DO NR/NTS Conf#: [id number] DID#: [id number] CC: CHEYENNE OSBORN MD; KEZIA BRANDT DO;*EndCC*
--- NOTE | 2018-03-04 08:25 | NUR ---
Pt requests to take medications later.
[2018-03-04] MEDS: ASPIRIN 81 MG TAB PO SCH (10:12)
[2018-03-04] MEDS: SEVELAMER CARBONATE 800 MG TABLET PO SCH ×2 (10:12→12:18)
[2018-03-04] MEDS: CLOPIDOGREL 75 MG TAB PO SCH (10:12)
[2018-03-04] MEDS: MULTIVIT/CA CARB/B CMPLX/FA TAB PO SCH (10:12)
[2018-03-04] MEDS: ISOSORBIDE MONONITRATE(SR)30 MG TAB PO SCH (10:13)
[2018-03-04] MEDS: AMLODIPINE 5 MG TAB PO SCH (10:13)
[2018-03-04] MEDS: METOPROLOL 25 MG TAB PO SCH (10:13)
[2018-03-04] MEDS: CHOLECALCIFEROL 2,000 UNIT CAP PO SCH (10:14)
[2018-03-04] MEDS: ATORVASTATIN 80 MG TAB PO SCH (10:14)
[2018-03-04] MEDS: FLUTICASONE/VILANTEROL 100-25 INH SCH (10:15)
[2018-03-04] MEDS: TIOTROPIUM 18 MCG CAPSULE INHA DEV INH SCH (10:15)
[2018-03-04] MEDS: FAMOTIDINE 20 MG TAB PO SCH (10:15)
[2018-03-04] MEDS: ONDANSETRON 4 MG INJ IV PRN (10:38)
[2018-03-04] MEDS: HEPARIN 5,000 UNIT/1 ML VIAL SC SCH (10:52)
--- NOTE | 2018-03-04 12:09 | NUR ---
Pt requesting to eat lunch later. Will check glucose and give renal medications before pt is ready to eat lunch.
--- NOTE | 2018-03-04 12:51 | DS ---
Date/Time of Note Date/Time of Note DATE: 03/04/18 TIME: 12:48 Discharge Summary Admission/Discharge Info Admit Date/Time Feb 22, 2018 at 23:02 Discharge Date/Time March 04 2018 Discharge Diagnosis Noncardiac chest pain syndrome; bronchitis; end-stage renal disease on hemodialysis; diabetes mellitus type 2; history of papillary carcinoma thyroid; coronary artery disease; hyperlipidemia; essential hypertension; depression Patient Condition: Fair Consults Cardiology; nephrology Procedures Hemodialysis; rule out AL protocol; echocardiogram Hx of Present Illness 52-year-old -[place] female admitted after discharge 10 days ago. She reports that she developed a cough after discharge from the hospital. The cough persisted and she thinks it may have started causing her chest pain. In addition she missed a dialysis session as she reports because [facility] counseled her transportation to and from dialysis. She had left anterior chest pain with possibly shortness of breath. Hospital Course Patient was admitted and ruled out. Her bronchitis was treated which was modestly recalcitrant treatment but did improve. She continued to be dialyzed and we are a bit limited as she had missed dialysis due to not having transportation which was due to a breakdown in her Medi-Brian status. It took some time to get the paperwork to communicate through and finally fully into everybody systems. This is now been accomplished and she can be discharged without the fear of her missing her dialysis episodes. Home Meds Active Scripts Albuterol Sulfate* (Proair HFA*) 8.5 Gm Hfa.aer.ad, 2 PUFF INH Q6H PRN for WHEEZING AND SOB, #1 INHALER Prov:MARCELLE LAU MD 11/20/16 Reported Medications Temazepam* (Temazepam*) 30 Mg Capsule, 30 MG PO HS PRN for INSOMNIA, CAP 01/27/18 Ranolazine* (Ranexa*) 500 Mg Tab.sr.12h, 500 MG PO Q12, TAB 01/27/18 Hydrocodone/Acetaminophen (Jay 10-325 Tablet) 1 Each Tablet, 1 EACH PO, TAB 08/14/17 Loperamide Hcl* (Loperamide Hcl*) 1 Mg/5 Ml Liquid, 2 MG PO PRN for DIARRHEA, ML MAX 16 mg/day 08/14/17 Biotin (Biotin) 5 Mg Tablet, 5 MG PO, TAB 08/14/17 Biotin (BIOTIN) 1 Mg Capsule, 1 MG PO, CAP 08/14/17 Amlodipine Besylate* (Norvasc*) 5 Mg Tablet, 5 MG PO DAILY, TAB 11/20/16 Atorvastatin Calcium* (Atorvastatin Calcium*) 20 Mg Tablet, 20 MG PO QHS, #30 TAB 11/20/16 Isosorbide Mononitrate* (Isosorbide Mononitrate*) 30 Mg Tab.er.24h, 30 MG PO DAILY, TAB 11/20/16 Clopidogrel Bisulfate (Clopidogrel) 75 Mg Tablet, 75 MG PO DAILY, #30 TAB 11/20/16 Levothyroxine Sodium* (Levothyroxine Sodium*) 200 Mcg Tablet, 200 MCG PO BEFORE BREAKFAST, #30 TAB 11/20/16 Metoprolol Tartrate* (Lopressor*) 25 Mg Tablet, 25 MG PO BID, #60 TAB 09/26/15 Follow-up Plan Outpatient hemodialysis tomorrow; nephrology in the next 2 weeks; our office in 1 month Primary Care Provider Tae Stephens MD Time spent on discharge: > 30 minutes Pending Labs Laboratory Tests Test 03/03/18 17:16 03/03/18 21:25 03/04/18 07:14 03/04/18 12:23 Bedside 82 106 218 180 Glucose mg/dL (70-220) mg/dL (70-220) mg/dL (70-220) mg/dL (70-220) MARGARITO VIVAR MD Mar 04, 2018 12:51
--- NOTE | 2018-03-04 12:51 | PDOCDIS ---
Discharge Instructions DIAGNOSIS Discharge Diagnosis Noncardiac chest pain syndrome; bronchitis; end-stage renal disease on hemodialysis; diabetes mellitus type 2; history of papillary carcinoma thyroid; coronary artery disease; hyperlipidemia; essential hypertension; depression CONDITION [id number] Patient Condition: [id number] Fair HOME CARE INSTRUCTIONS: Zhen Special Diet: [id number] renal ACTIVITY: [id number] Activity Restrictions: [id number] Slowly Increase Activity Do not operate Machinery Do not operate Power Tool FOLLOW UP/APPOINTMENTS Follow-up Plan Outpatient hemodialysis tomorrow; nephrology in the next 2 weeks; our office in 1 month MARGARITO VIVAR MD Mar 04, 2018 12:51
[2018-03-04] MEDS ORDERED: ATOR-2 PO (12:54)
[2018-03-04] MEDS ORDERED: SEVE800T7 PO (12:54)
[2018-03-04] MEDS ORDERED: TIOT18CA INH (12:54)
[2018-03-04] MEDS ORDERED: ASPI-831 PO (12:54)
--- NOTE | 2018-03-04 13:56 | NUR ---
Discharge Instructions: Pt signed d/c paperwork. Son at bedside and listened to d/c instructions/medications/follow ups. Pt states that she will follow up with her PCP in 1 month, her javascript developer in 2 weeks, and will go to HD tomorrow. Pt states that she understands the new medications and medication changes and will follow them. Pt has her copy of d/c instructions, health summary, and education. Pt states that she will cook pickled meat her new prescriptions today. Susana, manager of case management, setting up transportation so that pt can go to hemodialysis
--- NOTE | 2018-03-04 14:06 | NUR ---
CASE MANAGEMENT NOTE TRANSPORTATION ARRANGEMENT MADE, THIS CM MET WITH PATIENT AT BEDSIDE AND WAS PROVIDED WITH HER NEW ADDRESS, [address] [place] [id number] , PHONE NUMBER [phone]. CM CALLED [facility] [phone] AND S/W CHEO AND TRANSPORTATION ARRANGED, ADDRESS UPDATED AND PT WILL TRANSFER FROM HER HOME ADDRESS TO [address] [place] [address] EFFICIENCY MINER TIME 1:45-2:15 AM CHAIR TIME 3:15 AM FRIDAY,FRIDAY,FRIDAY TRIP NUMBER FOR FRIDAY THE [id number] AND 03/07/18 370-12, 03/10/18 895-64 AND 03/12/18 [id number], CM MADE HER AWARE.
--- NOTE | 2018-03-04 14:27 | NUR ---
CM NOTE UPDATE PT WAS PROVIDED WITH A THIS COPY UPDATED ADDRESS PROVIDED TO [facility] [address], PHONE NUMBER [phone] [employer] [facility] [phone] AND S/W CHEO AND TRANSPORTATION ARRANGED, ADDRESS UPDATED AND PT WILL TRANSFER FROM HER HOME ADDRESS TO [facility] [address] FIELD MARKETING MANAGER TIME 1:45-2:15 AM CHAIR TIME 3:15 AM FRIDAY, FRIDAY, FRIDAY TRIP NUMBER FOR FRIDAY THE [id number] 03/07/18 370-12, 03/10/18 830-75 AND 03/12/18 [id number],
--- NOTE | 2018-03-04 14:35 | NUR ---
Pt D/C via w/c with volunteer. Pt states that she has all belongings. Son at bedside and is driving her home. Pt stable. No complaints. Not in distress. Not bleeding from IV removal site. Denies SOB. Steady gait. Denies pain.
== END 2018-03-04 14:32 | disposition home or self-care (01) | DRG 640 ==
LOC: E/R 19:17 → 6WM 23:02
PROVIDERS: ADMIT Student in an Organized Health Care Education/Training Program; ATTEND Student in an Organized Health Care Education/Training Program
PROC: 5A1D70Z Performance of Urinary Filtration, Intermittent, Less than 6 Hours Per Day (ICD-10-PCS; principal; 2018-02-23)
DX: E87.70 Fluid overload, unspecified (principal); N18.6 End stage renal disease; I12.0 Hypertensive chronic kidney disease with stage 5 chronic kidney disease or end stage renal disease; N25.81 Secondary hyperparathyroidism of renal origin; E87.5 Hyperkalemia; E11.22 Type 2 diabetes mellitus with diabetic chronic kidney disease; Z99.2 Dependence on renal dialysis; J20.9 Acute bronchitis, unspecified; Z95.5 Presence of coronary angioplasty implant and graft; E03.9 Hypothyroidism, unspecified; Z85.850 Personal history of malignant neoplasm of thyroid; D64.9 Anemia, unspecified; R07.9 Chest pain, unspecified; F32.9 Major depressive disorder, single episode, unspecified
CPT/HCPCS: 36415; 71045; 80048; 80053; 82962; 83690; 83735; 84100; 84484; 85025; 85610; 85730; 90935; 93005; 94664; 96372; 96374; 96375; J0360; J1200; J1644; J1720; J1815; J2270; J2274; J2405; Q4081

== ENCOUNTER 2018-05-09 04:24 | Observation (INO) | payer MEDICARE, OTHER ==
[~2018-05-09] VITALS: Ht 170.2 cm; Wt 70.3 kg
[2018-05-09] VITALS (10 sets, daily range): BP systolic 118–159; BP diastolic 55–70; PULSE 77–91; RESP 17–19; Ht 170.2 cm; Wt 70.3 kg
[~2018-05-09 04:24] MED LIST changes: +ASPI-831 PO; +ATOR-2 PO; -ATOR20TA38 PO; +SEVE800T7 PO; +TIOT18CA INH
[2018-05-09] MEDS ORDERED: SOD CHLORIDE 0.9% 1,000 ML IV STA (05:12)
[2018-05-09] MEDS ORDERED: IPRATROPIUM (NEB) 0.5 MG/2.5 ML AMP NEB ONE (06:53)
[2018-05-09] MEDS ORDERED: ALBUTEROL 0.083% (NEB) 2.5 MG/3 ML AMP NEB ONE (06:53)
--- NOTE | 2018-05-09 07:53 | ERD ---
ER Documentation Chief Complaint Chief Complaint bib ra from dialysis for cp, given [address], completed dialysis HPI This is a 53-year-old female with a past medical history of end-stage renal disease on hemodialysis every Friday and Friday. 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 The patient indicated she was at her dialysis center this morning and had received 17 minutes of dialysis when she developed c hest pain. She stated it was a pressure-like sensation. The pain was 8 out of 10 in intensity. The pain did not radiate to her neck arm back or jaw. She had no associated symptoms of nausea vomiting or diaphoresis. The patient indicated that roughly 2 weeks ago at [facility] she had an angiogram and a cardiac stent that was placed. The patient indicated that during the procedure a second stent was to be placed however she developed a seizure had a witnessed cardiac arrest requiring intubation and had return of spontaneous circulation. Therefore she states there is still a coronary artery that is occluded and was instructed that at a later time the second cardiac stent will be placed. 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 Blanco at [facility] but she states she normally sees Dr. Garcias. ROS All systems reviewed and are negative except as per history of present illness. Medications Home Meds Active Scripts Sevelamer Carbonate* (Renvela*) 800 Mg Tablet, 800 MG PO WITH MEALS for 30 Days, #90 TAB Prov:MARGARITO VIVAR MD 03/04/18 Aspirin (Aspirin) 81 Mg Chew, 81 MG PO DAILY for 30 Days, #30 TAB Prov:MARGARITO VIVAR MD 03/04/18 Atorvastatin* (Atorvastatin*) 80 Mg Tablet, 80 MG PO DAILY for 30 Days, #30 TAB 1 Refill Prov:MARGARITO VIVAR MD 03/04/18 Tiotropium Bonanza* (Spiriva*) 18 Mcg Cap.w.dev, 1 INH INH DAILY for 30 Days, #30 CAP 1 Refill Prov:MARGARITO VIVAR MD 03/04/18 Albuterol Sulfate* (Proair HFA*) 8.5 Gm Hfa.aer.ad, 2 PUFF INH Q6H PRN for WHEEZING AND SOB, #1 INHALER Prov:MARCELLE LAU MD 11/20/16 Reported Medications Temazepam* (Temazepam*) 30 Mg Capsule, 30 MG PO HS PRN for INSOMNIA, CAP 01/27/18 Ranolazine* (Ranexa*) 500 Mg Tab.sr.12h, 500 MG PO Q12, TAB 01/27/18 Hydrocodone/Acetaminophen (Poyntelle 10-325 Tablet) 1 Each Tablet, 1 EACH PO, TAB 08/14/17 Loperamide Hcl* (Loperamide Hcl*) 1 Mg/5 Ml Liquid, 2 MG PO PRN for DIARRHEA, ML MAX 16 mg/day 08/14/17 Biotin (Biotin) 5 Mg Tablet, 5 MG PO, TAB 08/14/17 Biotin (BIOTIN) 1 Mg Capsule, 1 MG PO, CAP 08/14/17 Amlodipine Besylate* (Norvasc*) 5 Mg Tablet, 5 MG PO DAILY, TAB 11/20/16 Isosorbide Mononitrate* (Isosorbide Mononitrate*) 30 Mg Tab.er.24h, 30 MG PO DAILY, TAB 11/20/16 Clopidogrel Bisulfate (Clopidogrel) 75 Mg Tablet, 75 MG PO DAILY, #30 TAB 11/20/16 Levothyroxine Sodium* (Levothyroxine Sodium*) 200 Mcg Tablet, 200 MCG PO BEFORE BREAKFAST, #30 TAB 11/20/16 Metoprolol Tartrate* (Lopressor*) 25 Mg Tablet, 25 MG PO BID, #60 TAB 09/26/15 Allergies Allergies: Coded Allergies: No Known Drug Allergies (Verified Allergy, Unknown, 02/03/18) PMhx/Soc History of Surgery: Yes (fistula placement) Anesthesia Reaction: No Hx Neurological Disorder: No Hx Respiratory Disorders: No Hx Cardiac Disorders: Yes (HTN HYPELIPIDEMIA) Hx Psychiatric Problems: No Hx Miscellaneous Medical Probl: No (dm, kidney failure) Hx Alcohol Use: No Hx Substance Use: No Hx Tobacco Use: No Smoking Status: Never smoker Physical Exam Vitals Vital Signs Date Temp Pulse Resp B/P (MAP) Pulse Ox O2 O2 Flow FiO2 Time Delivery Rate 05/09/18 85 19 97 21 07:32 05/09/18 98.0 94 19 166/101 100 04:33 (122) Physical Exam Constitutional:Well-developed. Well-nourished. HEENT:Normocephalic. Atraumatic.Pupils were equal round reactive to light. Moist mucous membranes.No tonsillar exudates. Neck: No nuchal rigidity. No lymphadenopathy. No posterior cervical spine tenderness or step-offs. Respiratory: Not using accessory muscles of respiration.Lungs were clear to auscultation bilaterally. No rhonchi. No rales. Mild wheezing bilaterally. Cardiovascular: Regular rate regular rhythm. Systolic murmur stage IV nonradiating, heard most prominently between the first and second intercostal space. No rubs were appreciated.S1, S2 normal. Distal pulses are palpable 2+ bilaterally. GI: Abdomen was soft. Nontender. Non Distended. No pulsatile abdominal masses or bruits. No rebound. No guarding. Bowel sounds were present and normal. Muscle skeletal: Full range of motion of both the upper and lower extremities bilaterally.Normal muscle tone.No assymetrical calf tenderness or swelling. Skin: No petechia, no purpura. No lesions on the palms or the soles of the feet. No maculopapular rash. Thrill and bruit of the right upper extremity fistula NEURO: Patient was alert, awake, orientated x3.No facial droop. Gait observed and normal with no ataxia.Speech had regular rate and rhythm. No focal neurological deficits. Result Diagram: 05/09/1822 05/09/1822 Results 24 hrs Laboratory Tests Test 05/09/18 05:22 White Blood Count 3.8 10^3/ul Red Blood Count 3.49 10^6/ul Hemoglobin 11.1 g/dl Hematocrit 33.7 % Mean Corpuscular Volume 96.6 fl Mean Corpuscular Hemoglobin 31.8 pg Mean Corpuscular Hemoglobin Concent 32.9 g/dl Red Cell Distribution Width 22.6 % Platelet Count 77 10^3/UL Mean Platelet Volume 12.7 fl Immature Granulocytes % 0.000 % Neutrophils % 47.8 % Lymphocytes % 41.2 % Monocytes % 6.3 % Eosinophils % 3.9 % Basophils % 0.8 % Nucleated Red Blood Cells % 0.0 /100WBC Immature Granulocytes # 0.000 10^3/ul Neutrophils # 1.8 10^3/ul Lymphocytes # 1.6 10^3/ul Monocytes # 0.2 10^3/ul Eosinophils # 0.2 10^3/ul Basophils # 0.0 10^3/ul Nucleated Red Blood Cells # 0.0 10^3/ul Sodium Level 144 mmol/L Potassium Level 4.4 mmol/L Chloride Level 99 mmol/L Carbon Dioxide Level 30 mmol/L Anion Gap 15 Blood Urea Nitrogen 25 mg/dl Creatinine 6.48 mg/dl Est Glomerular Filtrat Rate mL/min 8 mL/min Glucose Level 111 mg/dl Calcium Level 9.1 mg/dl Total Bilirubin 0.6 mg/dl Direct Bilirubin 0.00 mg/dl Indirect Bilirubin 0.6 mg/dl Aspartate Amino Transf (AST/SGOT) 28 IU/L Alanine Aminotransferase (ALT/SGPT) 8 IU/L Alkaline Phosphatase 328 IU/L Troponin I < 0.012 ng/ml B-Type Natriuretic Peptide [id number] PG/ML Total Protein 8.3 g/dl Albumin 4.4 g/dl Globulin 3.90 g/dl Albumin/Globulin Ratio 1.12 Lipase 188 U/L Current Medications Medications Dose Sig/Cheng Start Time Status Last (Trade) Ordered Route PRN Stop Time Admin Dose Reason Admin Sodium 1,000 ml @ Q1H STAT 05/09/18 DC 05/09/18 Chloride 1,000 mls/hr IV 05:12 05:38 05/09/18 06:11 Morphine 4 mg ONCE ONCE 05/09/18 DC Sulfate IV 06:53 (morphine) 05/09/18 08:23 Ondansetron 4 mg ONCE ONCE 05/09/18 DC HCl (Zofran IV 06:53 Inj) 05/09/18 08:23 Albuterol 5 mg ONCE ONCE 05/09/18 DC 05/09/18 (Proventil NEB 06:53 07:31 0.083% (Neb)) 05/09/18 06:54 Ipratropium 0.5 mg ONCE ONCE 05/09/18 DC 05/09/18 Bonanza NEB 06:53 07:31 (Atrovent 05/09/18 06:54 0.02% (Neb)) Aspirin 325 mg ONCE ONCE 05/09/18 DC 05/09/18 (Aspirin) PO 08:00 08:31 05/09/18 08:01 Ondansetron 4 mg ER BRIDGE 05/09/18 HCl (Zofran PRN IV 09:00 Inj) NAUSEA/VOMITI 05/10/18 08:59 NG 650 mg ER BRIDGE 05/09/18 Acetaminophen PRN PO 09:00 (Tylenol .MILD PAIN 05/10/18 08:59 Tab) 1-3 OR TEMP Procedures/MDM The patient presented to the emergency department with chest pain. My clinical evaluation and workup was to distinguish minor causes of chest pain from acute life threatening conditions such as myocardial infarction, pulmonary embolism, aortic dissection, esophageal rupture, cardiac tamponade. The patient was placed on a monitoring specialist and continuous pulse oximetry. IV access established by nursing staff. The patient received aspirin. She is currently on Plavix. 12 Lead EKG tracing ordered and reviewed by myself showed: Normal sinus rhythm of 92 bpm and no arrhythmia. TX interval normal. QRS duration normal. No ST segment elevation No ST segment depression. No changes consistent with acute ischemia. I obtained a 1 view chest radiograph which showed no infiltrates pneumothorax or pleural effusions. The patient's pain was 25 and creatinine was 6.48. The patient's potassium was within normal limits. The patient's BNP was significantly elevated 105,000 however I did feel this was more a result of the patient's renal failure as the patient had no physical exam findings at this time to suggest congestive heart failure. Patient will be admitted for serial twelve-lead EKG tracing and car diac set of enzymes due to her multiple cardiac risk factors. However the patient's initial cardiac enzyme was within normal limits. She also have emergent hemodialysis performed upon her admission to the hospital. The patient will be going to the telemetry service and admitted to the panel physician Departure Diagnosis: Primary Impression: Chest pain Chest pain type: unspecified Qualified Codes: R07.9 - Chest pain, unspecified Additional Impression: Renal failure (ARF), acute on chronic Acute renal failure type: unspecified Chronic kidney disease stage: on chronic dialysis Qualified Codes: N17.9 - Acute kidney failure, unspecified; N18.9 - Chronic kidney disease, unspecified; Z99.2 - Dependence on renal dialysis Condition: Serious DORA PETER MD May 09, 2018 07:50
[2018-05-09] MEDS ORDERED: ASPIRIN 325 MG TAB PO ONE (08:00)
[2018-05-09] MEDS: ONDANSETRON 4 MG INJ IV ONE ×2 (08:20→08:24)
[2018-05-09] MEDS: morphine 4 MG/ML VIAL IV ONE ×2 (08:20→08:23)
[2018-05-09] MEDS ORDERED: ACETAMINOPHEN 325 MG TAB PO PRN (09:00)
[2018-05-09] MEDS ORDERED: ONDANSETRON 4 MG INJ IV PRN (09:00)
[2018-05-09] MEDS ORDERED: HYDR-3980 PO (10:42)
[2018-05-09] MEDS ORDERED: LEVO200T6 PO (10:42)
[2018-05-09] MEDS ORDERED: METO-448 PO (10:43)
[2018-05-09] MEDS ORDERED: LEVE500T8 PO (10:44)
[2018-05-09] MEDS ORDERED: TEMA30CA PO (10:45)
[2018-05-09] MEDS ORDERED: SENN-120 PO (10:46)
[2018-05-09] MEDS ORDERED: **FLU VACCINE PREVIOUSLY DISPENSED XX PRN (12:30)
[2018-05-09] MEDS ORDERED: morphine 2 MG INJ IV STA (12:55)
[2018-05-09] MEDS ORDERED: NACL 0.9% 3 ML SYG IV SCH (13:30)
[2018-05-09] MEDS ORDERED: BISACODYL (EC) 5 MG TAB PO PRN (13:30)
[2018-05-09] MEDS ORDERED: ONDANSETRON 4 MG TAB PO PRN (13:30)
[2018-05-09] MEDS ORDERED: ZOLPIDEM 5 MG TAB PO PRN (13:30)
[2018-05-09] MEDS ORDERED: LORAZEPAM 0.5 MG TAB PO PRN (13:30)
[2018-05-09] MEDS ORDERED: HYDROCODONE/APAP (5/325) TAB PO PRN (13:30)
--- NOTE | 2018-05-09 14:01 | HP ---
Date/Time of Note Date/Time of Note DATE: 05/09/18 TIME: 13:48 Assessment/Plan VTE Prophylaxis SCD applied (from Nsg): Yes Pharmacological prophylaxis: heparin Lines/Catheters IV Catheter Type (from Nrsg): Mid Line Assessment/Plan Problems: (1) Chest pain Status: Acute Comment: Patient admitted to the hospital go through the rule out protocol. She will be seen by cardiology in consultation, as well as nephrology. Qualifiers: Chest pain type: unspecified Qualified Codes: R07.9 - Chest pain, unspecified (2) End stage renal disease on dialysis due to type 2 diabetes mellitus Status: Chronic Comment: As per nephrology to maintain dialysis. Please note she did not have a full dialysis session today (3) DM (diabetes mellitus), type 2 Status: Chronic Comment: Adequate control at this time. 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 Please note hold the blood pressure medicines prior to dialysis (5) Hyperlipidemia Status: Chronic Comment: Contains statin therapy Qualifiers: Hyperlipidemia type: pure hypercholesterolemia Qualified Codes: E78.00 - Pure hypercholesterolemia, unspecified (6) Atherosclerotic heart disease of [place] coronary artery without angina pectoris Status: Chronic Comment: Noted. Cardiology consultation Qualifiers: [place] vs. transplanted heart: [place] heart Qualified Codes: I25.10 - Atherosclerotic heart disease of [place] coronary artery without angina pectoris (7) Secondary hyperparathyroidism of renal origin Status: Chronic Comment: Noted. (8) Hiatal hernia with GERD Status: Chronic Comment: Noted. Stable and compensated (9) Papillary thyroid carcinoma Onset Date: ~ 02/2013 Status: Chronic Comment: In remission Result Diagram: 05/09/18 0522 05/09/18 0522 Results 24hrs Laboratory Tests Test 05/09/18 05:22 White Blood Count 3.8 L Red Blood Count 3.49 L Hemoglobin 11.1 L Hematocrit 33.7 L Mean Corpuscular Volume 96.6 Mean Corpuscular Hemoglobin 31.8 Mean Corpuscular Hemoglobin Concent 32.9 Red Cell Distribution Width 22.6 H Platelet Count 77 #L Mean Platelet Volume 12.7 H Immature Granulocytes % 0.000 L Neutrophils % 47.8 Lymphocytes % 41.2 Monocytes % 6.3 Eosinophils % 3.9 Basophils % 0.8 Nucleated Red Blood Cells % 0.0 Immature Granulocytes # 0.000 Neutrophils # 1.8 Lymphocytes # 1.6 Monocytes # 0.2 L Eosinophils # 0.2 Basophils # 0.0 Nucleated Red Blood Cells # 0.0 Sodium Level 144 Potassium Level 4.4 Chloride Level 99 Carbon Dioxide Level 30 Anion Gap 15 H Blood Urea Nitrogen 25 H Creatinine 6.48 H Est Glomerular Filtrat Rate mL/min 8 L Glucose Level 111 Calcium Level 9.1 Total Bilirubin 0.6 Direct Bilirubin 0.00 Indirect Bilirubin 0.6 Aspartate Amino Transf (AST/SGOT) 28 Alanine Aminotransferase (ALT/SGPT) 8 L Alkaline Phosphatase 328 H Troponin I < 0.012 B-Type Natriuretic Peptide 027687 H Total Protein 8.3 H Albumin 4.4 Globulin 3.90 H Albumin/Globulin Ratio 1.12 Lipase 188 CC: DEANDRE ROCHE DO; HUMAIRA CELESTIN MD ; HPI/ROS Admit Date/Time Admit Date/Time May 09, 2018 at 08:36 Hx of Present Illness Charming 53-year-old -Greek female well-known to us. She has a history of end-stage renal disease disease on hemodialysis Friday. She also has a history of coronary artery disease with diffuse cabral ry disease. She had been referred by local cardiology to [facility] to have complicated endovascular stenting of the coronary. She had 2 sites to hit and had 1 of them done. Postprocedure when she was coming into the recovery room she suffered a seizure which was a new event for her and arrested. She was successfully resuscitated and ultimately discharged. She reports since that time when she goes for dialysis her blood pressure drops. When her blood pressure dropped she does get chest pain. In addition she states that her chest has been achy since she was resuscitated [facility] due to the chest compressions she had there. ROS Constitutional: no complaints (No fevers chills or sweats) Eyes: no complaints ENT: no complaints Respiratory: no complaints Cardiovascular: no complaints (His only chest pain is resolved unless she twists or turns or takes a very deep breath) Gastrointestinal: no complaints Genitourinary: no complaints Skin: no complaints Neurologic: no complaints Endocrine: no complaints PMH/Family/Social Past Medical History Medical History: cancer (History of well differentiated papillary carcinoma thyroid), coronary artery disease, diabetes (Type II complicated by end-stage renal disease, retinopathy, peripheral neuropathy), GERD, high cholesterol, hypertension, hypothyroid, renal disease (End-stage renal disease on hemodialysis Friday) Medications Current Medications Miscellaneous Information (Flu Vaccine Previously Dispensed) FLU VACCINE PREVIOUSLY DISPENSED ... NOTE PRN XX NOTE; Start 05/09/18 at 12:30 IV Flush (NS 3 ml) 3 ml PER PROTOCOL IV ; Start 05/09/18 at 13:30 Lorazepam (Ativan) 0.5 mg Q8H PRN PO .ANXIETY; Start 05/09/18 at 13:30 Ondansetron HCl (Zofran Tab) 4 mg Q6H PRN PO NAUSEA/VOMITING; Start 05/09/18 at 13:30 Acetaminophen/ Hydrocodone Bitart ([place] (5/325)) 1 tab Q6H PRN PO .PAIN 4-6; Start 05/09/18 at 13:30 Morphine Sulfate (morphine) 2 mg Q4H PRN IV .PAIN 7-10; Start 05/09/18 at 13:30 Bisacodyl (Dulcolax) 5 mg DAILY PRN PO .CONSTIPATION; Start 05/09/18 at 13:30 Famotidine (Pepcid) 20 mg DAILY PO ; Start 05/09/18 at 14:00 Heparin Sodium (Porcine) (Heparin (5000 Units/1ml)) 5,000 unit Q12 SC ; Start 05/09/18 at 21:00 Aspirin (Aspirin) 81 mg DAILY PO ; Start 05/09/18 at 13:30 Atorvastatin Calcium (Lipitor) 80 mg DAILY PO ; Start 05/09/18 at 13:30 Levetiracetam (Keppra) 500 mg BID PO ; Start 05/09/18 at 21:00 Levothyroxine Sodium (Synthroid) 200 mcg BEFORE BREAKFAST PO ; Start 05/10/18 at 07:00 Metoprolol Tartrate (Lopressor) 25 mg BID PO ; Start 05/09/18 at 13:30 Senna (Senokot) 1 tab BID PO ; Start 05/09/18 at 21:00 Sevelamer Carbonate (Renvela) 0.8 gm WITH MEALS PO ; Start 05/09/18 at 17:35 Tiotropium [place] (Spiriva) 1 inh DAILY INH ; Start 05/10/18 at 09:00 Zolpidem Tartrate (Ambien) 5 mg HS MAY REPEAT X 1 PRN PO INSOMNIA; Start 05/09/18 at 13:30 Coded Allergies: No Known Drug Allergies (Verified Allergy, Unknown, 05/09/18) Past Surgical History Past Surgical Hx: angioplasty, other (Status post ; status post near total thyroidectomy) Family History Significant Family History: no pertinent family hx, diabetes Social History Alcohol Use: none Smoking Status: Never smoker Drug Use: none Exam/Review of Systems Vital Signs Vitals Vital Signs Date Temp Pulse Resp B/P (MAP) Pulse Ox O2 O2 Flow FiO2 Time Delivery Rate 05/09/18 86 126/58 13:12 (80) 05/09/18 98.4 19 98 Room Air 12:11 05/09/18 21 07:32 Exam Constitutional: alert, oriented Neck: supple, non-tender Respiratory: clear to auscultation, normal air movement Cardiovascular: nl pulses, other (Tenderness at the costosternal junction) Gastrointestinal: soft, nl liver, spleen, non-tender Musculoskeletal: nl extremities to inspection, nl gait and stance MARGARITO VIVAR MD May 09, 2018 13:59
[2018-05-09] MEDS: ASPIRIN 81 MG TAB PO SCH (14:07)
[2018-05-09] MEDS: FAMOTIDINE 20 MG TAB PO SCH (14:07)
[2018-05-09] MEDS: METOPROLOL 25 MG TAB PO SCH ×2 (14:57→20:14)
[2018-05-09] MEDS: ATORVASTATIN 80 MG TAB PO SCH (14:57)
[2018-05-09] MEDS: SEVELAMER CARBONATE 0.8 GM PKT PO SCH (17:38)
--- NOTE | 2018-05-09 19:17 | CONS ---
Assessment/Plan Assessment/Plan Hospital Course (Demo Recall) 1. Chest pain rule out acute coronary syndrome 2. History of coronary artery disease status post likely PCI of chronic total occlusion of the right coronary artery although details not clear to me at this point 3. History of postop seizure versus cardiac arrest requiring appears to be hypothermia protocol 4. Renal failure on dialysis 5. History of hypertension 6. History of diabetes 7. History of thyroid cancer Recommendation: Continue with aspirin. I will started on Plavix given his history of recent PCI We will try to get the old records from [facility] Hemodialysis as per renal we will monitor on telemetry statin will be continued Diabetic management as per Dr. Mondragon I would also add Ranexa to her regimen Further recommendations after more information including angiogram report and discharge summary from [facility] is available Thank you for his referral. We will continue to follow along with you until or his associate return on Friday YESI BERNABE MD [facility] Consultation Date/Type/Reason Admit Date/Time May 09, 2018 at 08:36 Date of Consultation: May 09, 2018 Type of Consult Cardiology Reason for Consultation chest pain Requesting Provider: MARGARITO MONDRAGON MD Date/Time of Note DATE: 05/09/18 TIME: 19:11 Hx of Present Illness Interventional cardiology consultation note Chief complaint: Chest pain Reason for consult: Chest pain History of present illness: Thank you for this referral. History was obtained from the patient from review of the old chart discussion with physicians and staff. This is a 53-year-old -Serbian female with history of coronary artery disease apparently status post recent PCI at [facility]' who was admitted because of chest pain syndrome. 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 She said that she had a angioplasty and stenting done about 2 weeks ago at [facility]. She stated a postop she had a "seizure,"and had loaded and had to be placed on hypothermia protocol. She reports that after she has come out of seizures every time she gets diagnosed her blood pressure drops too much and she gets chest pain with it. Today it got worse and they brought her to the emergency room. He does not exercise or walk much. He has no chest pain at the moment. Pain is anteriorly sharp. Last a few minutes to hours until he dialysis is finished Patient said that she was told accident she has one other arteries is completely blocked and needs to be angioplastied Allergies: No known drug allergies Medications were reviewed as per medical reconciliation sheet + Plavix as far as she can tell me Family history: No history of early coronary artery disease Social history: Does not smoke or drink Past medical history: History of well differentiated papillary carcinoma thyroid), coronary artery disease that is post PCI, diabetes (Type II complicated by end-stage renal disease, retinopathy, peripheral neuropathy), GERD, high cholesterol, hypertension, hypothyroid, renal disease (End-stage renal disease on hemo dialysis Friday) Review of system: Patient denies all others except for above-mentioned Past Medical History Home Meds Active Scripts Sevelamer Carbonate* (Renvela*) 800 Mg Tablet, 800 MG PO WITH MEALS for 30 Days, #90 TAB Prov:MARGARITO MONDRAGON MD 03/04/18 Aspirin (Aspirin) 81 Mg Chew, 81 MG PO DAILY for 30 Days, #30 TAB Prov:MARGARITO MONDRAGON MD 03/04/18 Atorvastatin* (Atorvastatin*) 80 Mg Tablet, 80 MG PO DAILY for 30 Days, #30 TAB 1 Refill Prov:MARGARITO MONDRAGON MD 03/04/18 Tiotropium [place]* (Spiriva*) 18 Mcg Cap.w.dev, 1 INH INH DAILY for 30 Days, #30 CAP 1 Refill Prov:MARGARITO MONDRAGON MD 03/04/18 Reported Medications Sennosides* (Senna Lax*) 8.6 Mg Tablet, 1 TAB PO BID, TAB 05/09/18 Temazepam* (Temazepam*) 30 Mg Capsule, 30 MG PO HS PRN for INSOMNIA, CAP 05/09/18 Levetiracetam* (Levetiracetam*) 500 Mg Tablet, 500 MG PO BID, TAB 05/09/18 Metoprolol Tartrate* (Lopressor*) 25 Mg Tab, 25 MG PO BID, #60 TAB 05/09/18 Hydrocodone/Acetaminophen ([place] 10-325 Tablet) 1 Each Tablet, 1 EACH PO TID, TAB 05/09/18 Levothyroxine Sodium* (Levothyroxine Sodium*) 200 Mcg Tablet, 200 MCG PO BEFORE BREAKFAST, #30 TAB 05/09/18 Discontinued Reported Medications Temazepam* (Temazepam*) 30 Mg Capsule, 30 MG PO HS PRN for INSOMNIA, CAP 01/27/18 Ranolazine* (Ranexa*) 500 Mg Tab.sr.12h, 500 MG PO Q12, TAB 01/27/18 Hydrocodone/Acetaminophen ([place] 10-325 Tablet) 1 Each Tablet, 1 EACH PO, TAB 08/14/17 Loperamide Hcl* (Loperamide Hcl*) 1 Mg/5 Ml Liquid, 2 MG PO PRN for DIARRHEA, ML MAX 16 mg/day 08/14/17 Biotin (Biotin) 5 Mg Tablet, 5 MG PO, TAB 08/14/17 Biotin (BIOTIN) 1 Mg Capsule, 1 MG PO, CAP 08/14/17 Amlodipine Besylate* (Norvasc*) 5 Mg Tablet, 5 MG PO DAILY, TAB 11/20/16 Isosorbide Mononitrate* (Isosorbide Mononitrate*) 30 Mg Tab.er.24h, 30 MG PO DAILY, TAB 11/20/16 Clopidogrel Bisulfate (Clopidogrel) 75 Mg Tablet, 75 MG PO DAILY, #30 TAB 11/20/16 Levothyroxine Sodium* (Levothyroxine Sodium*) 200 Mcg Tablet, 200 MCG PO BEFORE BREAKFAST, #30 TAB 11/20/16 Metoprolol Tartrate* (Lopressor*) 25 Mg Tablet, 25 MG PO BID, #60 TAB 09/26/15 Discontinued Scripts Albuterol Sulfate* (Proair HFA*) 8.5 Gm Hfa.aer.ad, 2 PUFF INH Q6H PRN for WHEEZING AND SOB, #1 INHALER Prov:MARCELLE LAU MD 11/20/16 Medications Current Medications Miscellaneous Information (Flu Vaccine Previously Dispensed) FLU VACCINE PREVIOUSLY DISPENSED ... NOTE PRN XX NOTE; Start 05/09/18 at 12:30 IV Flush (NS 3 ml) 3 ml PER PROTOCOL IV ; Start 05/09/18 at 13:30 Lorazepam (Ativan) 0.5 mg Q8H PRN PO .ANXIETY; Start 05/09/18 at 13:30 Ondansetron HCl (Zofran Tab) 4 mg Q6H PRN PO NAUSEA/VOMITING; Start 05/09/18 at 13:30 Acetaminophen/ Hydrocodone Bitart ([place] (5/325)) 1 tab Q6H PRN PO .PAIN 4-6; Start 05/09/18 at 13:30 Morphine Sulfate (morphine) 2 mg Q4H PRN IV .PAIN 7-10; Start 05/09/18 at 13:30 Bisacodyl (Dulcolax) 5 mg DAILY PRN PO .CONSTIPATION; Start 05/09/18 at 13:30 Famotidine (Pepcid) 20 mg DAILY PO Last administered on 05/09/18at 14:07; Admin Dose 20 MG; Start 05/09/18 at 14:00 Heparin Sodium (Porcine) (Heparin (5000 Units/1ml)) 5,000 unit Q12 SC ; Start 05/09/18 at 21:00 Aspirin (Aspirin) 81 mg DAILY PO Last administered on 05/09/18at 14:07; Admin Dose 81 MG; Start 05/09/18 at 13:30 Atorvastatin Calcium (Lipitor) 80 mg DAILY PO Last administered on 05/09/18at 14:57; Admin Dose 80 MG; Start 05/09/18 at 13:30 Levetiracetam (Keppra) 500 mg BID PO ; Start 05/09/18 at 21:00 Levothyroxine Sodium (Synthroid) 200 mcg BEFORE BREAKFAST PO ; Start 05/10/18 at 07:00 Metoprolol Tartrate (Lopressor) 25 mg BID PO Last administered on 05/09/18at 1 4:57; Admin Dose 25 MG; Start 05/09/18 at 13:30 Senna (Senokot) 1 tab BID PO ; Start 05/09/18 at 21:00 Sevelamer Carbonate (Renvela) 0.8 gm WITH MEALS PO Last administered on 05/09/18at 17:38; Admin Dose 0.8 GM; Start 05/09/18 at 17:35 Tiotropium [place] (Spiriva) 1 inh DAILY INH ; Start 05/10/18 at 09:00 Zolpidem Tartrate (Ambien) 5 mg HS MAY REPEAT X 1 PRN PO INSOMNIA; Start 05/09/18 at 13:30 Allergies: Coded Allergies: No Known Drug Allergies (Verified Allergy, Unknown, 05/09/18) Past Surgical History Past Surgical Hx: angioplasty, other (Status post ; status post near total thyroidectomy) Social History Alcohol Use: none Smoking Status: Never smoker Drug Use: none Exam/Review of Systems Vital Signs Vitals Vital Signs Date Temp Pulse Resp B/P (MAP) Pulse Ox O2 O2 Flow FiO2 Time Delivery Rate 05/09/18 91 16:27 05/09/18 98.7 18 121/62 98 Room Air 16:17 (81) 05/09/18 21 07:32 Exam Exam General: no acute distress HEENT: NC/AT. pupils are equal. round. NECK: NO JVD. no stridor. CV: RRR. systolic murmur; no gallop or rubs. PULM: no wheezing or rhonchi. GI: SOFT, NT, ND, no rebound or guarding Extremity: trace B/L LE edema. no clubbing. neuro: awake and alert, OX3. Psych: calm and pleasant rectal: deferred EKG was personally reviewed showed normal sinus rhythm nonspecific ST-T wave abnormalities possible old inferior infarct Chest x-ray shows:Cardiomegaly. No pneumonia or failure. Labs Result Diagram: 05/09/18 0522 05/09/18 0522 Results 24hrs Laboratory Tests Test 05/09/18 05:22 05/09/18 13:53 White Blood Count 3.8 L Red Blood Count 3.49 L Hemoglobin 11.1 L Hematocrit 33.7 L Mean Corpuscular Volume 96.6 Mean Corpuscular Hemoglobin 31.8 Mean Corpuscular Hemoglobin Concent 32.9 Red Cell Distribution Width 22.6 H Platelet Count 77 #L Mean Platelet Volume 12.7 H Immature Granulocytes % 0.000 L Neutrophils % 47.8 Lymphocytes % 41.2 Monocytes % 6.3 Eosinophils % 3.9 Basophils % 0.8 Nucleated Red Blood Cells % 0.0 Immature Granulocytes # 0.000 Neutrophils # 1.8 Lymphocytes # 1.6 Monocytes # 0.2 L Eosinophils # 0.2 Basophils # 0.0 Nucleated Red Blood Cells # 0.0 Sodium Level 144 Potassium Level 4.4 Chloride Level 99 Carbon Dioxide Level 30 Anion Gap 15 H Blood Urea Nitrogen 25 H Creatinine 6.48 H Est Glomerular Filtrat Rate mL/min 8 L Glucose Level 111 Calcium Level 9.1 Total Bilirubin 0.6 Direct Bilirubin 0.00 Indirect Bilirubin 0.6 Aspartate Amino Transf (AST/SGOT) 28 Alanine Aminotransferase (ALT/SGPT) 8 L Alkaline Phosphatase 328 H Troponin I < 0.012 < 0.012 B-Type Natriuretic Peptide [id number] H Total Protein 8.3 H Albumin 4.4 Globulin 3.90 H Albumin/Globulin Ratio 1.12 Lipase 188 Creatine Kinase 49 Creatine Kinase Index 1.5 Creatinine Kinase MB (Mass) 0.73 Medications Medications Current Medications Miscellaneous Information (Flu Vaccine Previously Dispensed) FLU VACCINE PREVIOUSLY DISPENSED ... NOTE PRN XX NOTE; Start 05/09/18 at 12:30 IV Flush (NS 3 ml) 3 ml PER PROTOCOL IV ; Start 05/09/18 at 13:30 Lorazepam (Ativan) 0.5 mg Q8H PRN PO .ANXIETY; Start 05/09/18 at 13:30 Ondansetron HCl (Zofran Tab) 4 mg Q6H PRN PO NAUSEA/VOMITING; Start 05/09/18 at 13:30 Acetaminophen/ Hydrocodone Bitart ([place] (5/325)) 1 tab Q6H PRN PO .PAIN 4-6; Start 05/09/18 at 13:30 Morphine Sulfate (morphine) 2 mg Q4H PRN IV .PAIN 7-10; Start 05/09/18 at 13:30 Bisacodyl (Dulcolax) 5 mg DAILY PRN PO .CONSTIPATION; Start 05/09/18 at 13:30 Famotidine (Pepcid) 20 mg DAILY PO Last administered on 05/09/18at 14:07; Admin Dose 20 MG; Start 05/09/18 at 14:00 Heparin Sodium (Porcine) (Heparin (5000 Units/1ml)) 5,000 unit Q12 SC ; Start 05/09/18 at 21:00 Aspirin (Aspirin) 81 mg DAILY PO Last administered on 05/09/18at 14:07; Admin Dose 81 MG; Start 05/09/18 at 13:30 Atorvastatin Calcium (Lipitor) 80 mg DAILY PO Last administered on 05/09/18at 14:57; Admin Dose 80 MG; Start 05/09/18 at 13:30 Levetiracetam (Keppra) 500 mg BID PO ; Start 05/09/18 at 21:00 Levothyroxine Sodium (Synthroid) 200 mcg BEFORE BREAKFAST PO ; Start 05/10/18 at 07:00 Metoprolol Tartrate (Lopressor) 25 mg BID PO Last administered on 05/09/18at 14:57; Admin Dose 25 MG; Start 05/09/18 at 13:30 Senna (Senokot) 1 tab BID PO ; Start 05/09/18 at 21:00 Sevelamer Carbonate (Renvela) 0.8 gm WITH MEALS PO Last administered on 05/09/18at 17:38; Admin Dose 0.8 GM; Start 05/09/18 at 17:35 Tiotropium [place] (Spiriva) 1 inh DAILY INH ; Start 05/10/18 at 09:00 Zolpidem Tartrate (Ambien) 5 mg HS MAY REPEAT X 1 PRN PO INSOMNIA; Start 05/09/18 at 13:30 YESI BERNABE MD May 09, 2018 19:17
[2018-05-09] MEDS: SENNA TAB PO SCH (20:07)
[2018-05-09] MEDS: CLOPIDOGREL 75 MG TAB PO SCH (20:07)
[2018-05-09] MEDS: RANOLAZINE (SR) 500 MG TAB PO SCH (20:07)
[2018-05-09] MEDS: LEVETIRACETAM 500 MG TAB PO SCH (20:07)
[2018-05-09] MEDS: HEPARIN 5,000 UNIT/1 ML VIAL SC SCH (20:17)
[2018-05-10] VITALS (12 sets, daily range): BP systolic 105–139; BP diastolic 49–60; PULSE 72–80; RESP 18–20
[2018-05-10] MEDS: LEVOTHYROXINE 100 MCG TAB PO SCH (06:13)
[2018-05-10] MEDS: SEVELAMER CARBONATE 0.8 GM PKT PO SCH ×3 (07:55→17:55)
--- NOTE | 2018-05-10 08:33 | CONS ---
Assessment/Plan Assessment/Plan Hospital Course (Demo Recall) History of present illness: This is a 53-year-old -[place] female with history of ESRD (on HD every ,,), coronary artery disease apparently status post recent PCI at [facility] who was admitted because of chest pain syndrome. 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 She said that she had a angioplasty and stenting done about 2 weeks ago at [facility]. She stated a postop she had a "seizure,"and had loaded and had to be placed on hypothermia protocol. Since discharge the patient has hypotension, chest pain and pre-syncope with each dialysis treatment, even without any ultrafiltration, only a few minutes into her treatment. She had been able to finish her treatment with minimal UF and resolution of her symptoms. Yesterday she had chest pain again and [facility]. She has no chest pain at the moment. Pain is anteriorly sharp. 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, retinopathy, peripheral neuropathy), GERD, high cholesterol, hypertension, hypothyroid, renal disease (End-stage renal disease on hemodialysi s Friday) Review of system: 14 point ROS was done and pertinent findings are in hpi Home Meds Active Scripts Sevelamer Carbonate* (Renvela*) 800 Mg Tablet, 800 MG PO WITH MEALS for 30 Days, #90 TAB Prov:MARGARITO VIVAR MD 03/04/18 Aspirin (Aspirin) 81 Mg Chew, 81 MG PO DAILY for 30 Days, #30 TAB Prov:MARGARITO VIVAR MD 03/04/18 Atorvastatin* (Atorvastatin*) 80 Mg Tablet, 80 MG PO DAILY for 30 Days, #30 TAB 1 Refill Prov:MARGARITO VIVAR MD 03/04/18 Tiotropium Lomax* (Spiriva*) 18 Mcg Cap.w.dev, 1 INH INH DAILY for 30 Days, #30 CAP 1 Refill Prov:MARGARITO VIVAR MD 03/04/18 Reported Medications Sennosides* (Senna Lax*) 8.6 Mg Tablet, 1 TAB PO BID, TAB 05/09/18 Temazepam* (Temazepam*) 30 Mg Capsule, 30 MG PO HS PRN for INSOMNIA, CAP 05/09/18 Levetiracetam* (Levetiracetam*) 500 Mg Tablet, 500 MG PO BID, TAB 05/09/18 Metoprolol Tartrate* (Lopressor*) 25 Mg Tab, 25 MG PO BID, #60 TAB 05/09/18 Hydrocodone/Acetaminophen ([place] 10-325 Tablet) 1 Each Tablet, 1 EACH PO TID, TAB 05/09/18 Levothyroxine Sodium* (Levothyroxine Sodium*) 200 Mcg Tablet, 200 MCG PO BEFORE BREAKFAST, #30 TAB 05/09/18 Discontinued Reported Medications Temazepam* (Temazepam*) 30 Mg Capsule, 30 MG PO HS PRN for INSOMNIA, CAP 01/27/18 Ranolazine* (Ranexa*) 500 Mg Tab.sr.12h, 500 MG PO Q12, TAB 01/27/18 Hydrocodone/Acetaminophen ([place] 10-325 Tablet) 1 Each Tablet, 1 EACH PO, TAB 08/14/17 Loperamide Hcl* (Loperamide Hcl*) 1 Mg/5 Ml Liquid, 2 MG PO PRN for DIARRHEA, ML MAX 16 mg/day 08/14/17 Biotin (Biotin) 5 Mg Tablet, 5 MG PO, TAB 08/14/17 Biotin (BIOTIN) 1 Mg Capsule, 1 MG PO, CAP 08/14/17 Amlodipine Besylate* (Norvasc*) 5 Mg Tablet, 5 MG PO DAILY, TAB 11/20/16 Isosorbide Mononitrate* (Isosorbide Mononitrate*) 30 Mg Tab.er.24h, 30 MG PO DAILY, TAB 11/20/16 Clopidogrel Bisulfate (Clopidogrel) 75 Mg Tablet, 75 MG PO DAILY, #30 TAB 11/20/16 Levothyroxine Sodium* (Levothyroxine Sodium*) 200 Mcg Tablet, 200 MCG PO BEFORE BREAKFAST, #30 TAB 11/20/16 Metoprolol Tartrate* (Lopressor*) 25 Mg Tablet, 25 MG PO BID, #60 TAB 09/26/15 Discontinued Scripts Albuterol Sulfate* (Proair HFA*) 8.5 Gm Hfa.aer.ad, 2 PUFF INH Q6H PRN for WHEEZING AND SOB, #1 INHALER Prov:MARCELLE LAU MD 11/20/16 Medications Current Medications Miscellaneous Information (Flu Vaccine Previously Dispensed) FLU VACCINE PREVIOUSLY DISPENSED ... NOTE PRN XX NOTE; Start 05/09/18 at 12:30 IV Flush (NS 3 ml) 3 ml PER PROTOCOL IV ; Start 05/09/18 at 13:30 Lorazepam (Ativan) 0.5 mg Q8H PRN PO .ANXIETY; Start 05/09/18 at 13:30 Ondansetron HCl (Zofran Tab) 4 mg Q6H PRN PO NAUSEA/VOMITING; Start 05/09/18 at 13:30 Acetaminophen/ Hydrocodone Bitart ([place] (5/325)) 1 tab Q6H PRN PO .PAIN 4-6; Start 05/09/18 at 13:30 Morphine Sulfate (morphine) 2 mg Q4H PRN IV .PAIN 7-10; Start 05/09/18 at 13:30 Bisacodyl (Dulcolax) 5 mg DAILY PRN PO .CONSTIPATION; Start 05/09/18 at 13:30 Famotidine (Pepcid) 20 mg DAILY PO Last administered on 05/09/18at 14:07; Admin Dose 20 MG; Start 05/09/18 at 14:00 Heparin Sodium (Porcine) (Heparin (5000 Units/1ml)) 5,000 unit Q12 SC ; Start 05/09/18 at 21:00 Aspirin (Aspirin) 81 mg DAILY PO Last administered on 05/09/18at 14:07; Admin Dose 81 MG; Start 05/09/18 at 13:30 Atorvastatin Calcium (Lipitor) 80 mg DAILY PO Last administered on 05/09/18at 14:57; Admin Dose 80 MG; Start 05/09/18 at 13:30 Levetiracetam (Keppra) 500 mg BID PO ; Start 05/09/18 at 21:00 Levothyroxine Sodium (Synthroid) 200 mcg BEFORE BREAKFAST PO ; Start 05/10/18 at 07:00 Metoprolol Tartrate (Lopressor) 25 mg BID PO Last administered on 05/09/18at 14:57; Admin Dose 25 MG; Start 05/09/18 at 13:30 Senna (Senokot) 1 tab BID PO ; Start 05/09/18 at 21:00 Sevelamer Carbonate (Renvela) 0.8 gm WITH MEALS PO Last administered on 05/09/18at 17:38; Admin Dose 0.8 GM; Start 05/09/18 at 17:35 Tiotropium Lomax (Spiriva) 1 inh DAILY INH ; Start 05/10/18 at 09:00 Zolpidem Tartrate (Ambien) 5 mg HS MAY REPEAT X 1 PRN PO INSOMNIA; Start 05/09/18 at 13:30 Allergies: Coded Allergies: No Known Drug Allergies (Verified Allergy, Unknown, 05/09/18) Past Surgical History Past Surgical Hx: angioplasty, other (Status post ; status post near total thyroidectomy) Social History Alcohol Use: none Smoking Status: Never smoker Drug Use: none family history: + cardiac diseases Exam Exam General: no acute distress HEENT: NC/AT. pupils are equal. round. NECK: NO JVD. no stridor. CV: RRR. systolic murmur; no gallop or rubs. PULM: no wheezing or rhonchi. GI: SOFT, NT, ND, no rebound or guarding Extremity: trace B/L LE edema. no clubbing. neuro: awake and alert, OX3. Psych: calm and pleasant rectal: deferred EKG was personally reviewed showed normal sinus rhythm nonspecific ST-T wave abnormalities possible old inferior infarct Chest x-ray shows:Cardiomegaly. No pneumonia or failure. Impression and plan: 1. ESRD: patient has been having cp, hypotension and pre-syncope without any UF during first few minutes of HD. This is mostly cardiac related. repeat echo is pending to evaluate EF. old records from [facility] is requested. will hd in am while on monitor without any volume removal. 2. History of coronary artery disease status post likely PCI of chronic total occlusion of the right coronary artery although details not clear to me at this point 3. History of postop seizure versus cardiac arrest requiring appears to be hypothermia protocol 4. hyperparathyroidism: s/p parathyroidectomy. on IV Parsabiv 5. History of hypertension 6. History of diabetes 7. 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, retinopathy, peripheral neuropathy), GERD, high cholesterol, hypertension, hypothyroid, renal disease (End-stage renal disease on hemodial ysis Friday) Home Meds Active Scripts Sevelamer Carbonate* (Renvela*) 800 Mg Tablet, 800 MG PO WITH MEALS for 30 Days, #90 TAB Prov:MARGARITO VIVAR MD 03/04/18 Aspirin (Aspirin) 81 Mg Chew, 81 MG PO DAILY for 30 Days, #30 TAB Prov:MARGARITO VIVAR MD 03/04/18 Atorvastatin* (Atorvastatin*) 80 Mg Tablet, 80 MG PO DAILY for 30 Days, #30 TAB 1 Refill Prov:MARGARITO VIVAR MD 03/04/18 Tiotropium Lomax* (Spiriva*) 18 Mcg Cap.w.dev, 1 INH INH DAILY for 30 Days, #30 CAP 1 Refill Prov:MARGARITO VIVAR MD 03/04/18 Reported Medications Sennosides* (Senna Lax*) 8.6 Mg Tablet, 1 TAB PO BID, TAB 05/09/18 Temazepam* (Temazepam*) 30 Mg Capsule, 30 MG PO HS PRN for INSOMNIA, CAP 05/09/18 Levetiracetam* (Levetiracetam*) 500 Mg Tablet, 500 MG PO BID, TAB 05/09/18 Metoprolol Tartrate* (Lopressor*) 25 Mg Tab, 25 MG PO BID, #60 TAB 05/09/18 Hydrocodone/Acetaminophen ([place] 10-325 Tablet) 1 Each Tablet, 1 EACH PO TID, TAB 05/09/18 Levothyroxine Sodium* (Levothyroxine Sodium*) 200 Mcg Tablet, 200 MCG PO BEFORE BREAKFAST, #30 TAB 05/09/18 Discontinued Reported Medications Temazepam* (Temazepam*) 30 Mg Capsule, 30 MG PO HS PRN for INSOMNIA, CAP 01/27/18 Ranolazine* (Ranexa*) 500 Mg Tab.sr.12h, 500 MG PO Q12, TAB 01/27/18 Hydrocodone/Acetaminophen ([place] 10-325 Tablet) 1 Each Tablet, 1 EACH PO, TAB 08/14/17 Loperamide Hcl* (Loperamide Hcl*) 1 Mg/5 Ml Liquid, 2 MG PO PRN for DIARRHEA, ML MAX 16 mg/day 08/14/17 Biotin (Biotin) 5 Mg Tablet, 5 MG PO, TAB 08/14/17 Biotin (BIOTIN) 1 Mg Capsule, 1 MG PO, CAP 08/14/17 Amlodipine Besylate* (Norvasc*) 5 Mg Tablet, 5 MG PO DAILY, TAB 11/20/16 Isosorbide Mononitrate* (Isosorbide Mononitrate*) 30 Mg Tab.er.24h, 30 MG PO DAILY, TAB 11/20/16 Clopidogrel Bisulfate (Clopidogrel) 75 Mg Tablet, 75 MG PO DAILY, #30 TAB 11/20/16 Levothyroxine Sodium* (Levothyroxine Sodium*) 200 Mcg Tablet, 200 MCG PO BEFORE BREAKFAST, #30 TAB 11/20/16 Metoprolol Tartrate* (Lopressor*) 25 Mg Tablet, 25 MG PO BID, #60 TAB 09/26/15 Discontinued Scripts Albuterol Sulfate* (Proair HFA*) 8.5 Gm Hfa.aer.ad, 2 PUFF INH Q6H PRN for WHEEZING AND SOB, #1 INHALER Prov:MARCELLE LAU MD 11/20/16 Medications Current Medications Miscellaneous Information (Flu Vaccine Previously Dispensed) FLU VACCINE PREVIOUSLY DISPENSED ... NOTE PRN XX NOTE; Start 05/09/18 at 12:30 IV Flush (NS 3 ml) 3 ml PER PROTOCOL IV ; Start 05/09/18 at 13:30 Lorazepam (Ativan) 0.5 mg Q8H PRN PO .ANXIETY; Start 05/09/18 at 13:30 Ondansetron HCl (Zofran Tab) 4 mg Q6H PRN PO NAUSEA/VOMITING; Start 05/09/18 at 13:30 Acetaminophen/ Hydrocodone Bitart ([place] (5/325)) 1 tab Q6H PRN PO .PAIN 4-6; Start 05/09/18 at 13:30 Morphine Sulfate (morphine) 2 mg Q4H PRN IV .PAIN 7-10; Start 05/09/18 at 13:30 Bisacodyl (Dulcolax) 5 mg DAILY PRN PO .CONSTIPATION; Start 05/09/18 at 13:30 Famotidine (Pepcid) 20 mg DAILY PO Last administered on 05/09/18 14:07; Admin Dose 20 MG; Start 05/09/18 at 14:00 Heparin Sodium (Porcine) (Heparin (5000 Units/1ml)) 5,000 unit Q12 SC Last ad ministered on 05/09/18 20:17; Admin Dose 5,000 UNIT; Start 05/09/18 at 21:00 Aspirin (Aspirin) 81 mg DAILY PO Last administered on 05/09/18 14:07; Admin Dose 81 MG; Start 05/09/18 at 13:30 Atorvastatin Calcium (Lipitor) 80 mg DAILY PO Last administered on 05/09/18 14:57; Admin Dose 80 MG; Start 05/09/18 at 13:30 Levetiracetam (Keppra) 500 mg BID PO Last administered on 05/09/18 20:07; Admin Dose 500 MG; Start 05/09/18 at 21:00 Levothyroxine Sodium (Synthroid) 200 mcg BEFORE BREAKFAST PO Last administered on 05/10/18 06:13; Admin Dose 200 MCG; Start 05/10/18 at 07:00 Metoprolol Tartrate (Lopressor) 25 mg BID PO Last administered on 05/09/18 20:14; Admin Dose 25 MG; Start 05/09/18 at 13:30 Senna (Senokot) 1 tab BID PO Last administered on 05/09/18 20:07; Admin Dose 1 TAB; Start 05/09/18 at 21:00 Sevelamer Carbonate (Renvela) 0.8 gm WITH MEALS PO Last administered on 05/09/18 17:38; Admin Dose 0.8 GM; Start 05/09/18 at 17:35 Tiotropium Lomax (Spiriva) 1 inh DAILY INH ; Start 05/10/18 at 09:00 Zolpidem Tartrate (Ambien) 5 mg HS MAY REPEAT X 1 PRN PO INSOMNIA; Start at 13:30 Clopidogrel Bisulfate (plaVIX) 75 mg DAILY PO Last administered on 05/09/18 20:07; Admin Dose 75 MG; Start 05/09/18 at 19:30 Ranolazine (Ranexa) 500 mg Q12 PO Last administered on 05/09/18at 20:07; Admin Dose 500 MG; Start 05/09/18 at 21:00 Allergies: Coded Allergies: No Known Drug Allergies (Verified Allergy, Unknown, 05/09/18) Past Surgical History Past Surgical Hx: angioplasty, other (Status post ; status post near total thyroidectomy) Social History Alcohol Use: none Smoking Status: Never smoker Drug Use: none Exam/Review of Systems Exam Vitals Vital Signs Date Temp Pulse Resp B/P (MAP) Pulse Ox O2 O2 Flow FiO2 Time Delivery Rate 05/10/18 98.2 77 18 130/59 92 Room Air 08:05 (82) 05/09/18 21 07:32 Intake and Output 05/09/18 05/09/18 05/10/18 1515:00 23:00 07:00 IntakeIntake Total 100 ml 150 ml BalanceBalance 100 ml 150 ml Results Result Diagram: 05/10/18 0601 05/10/18 0601 Results 24hrs Laboratory Tests Test 05/09/18 13:53 05/09/18 18:29 05/10/18 06:01 Creatine Kinase 49 50 44 Creatine Kinase Index 1.5 1.6 1.8 Creatinine Kinase MB (Mass) 0.73 0.78 0.79 Troponin I < 0.012 < 0.012 < 0.012 White Blood Count 3.7 L Red Blood Count 3.28 L Hemoglobin 10.2 L Hematocrit 31.2 L Mean Corpuscular Volume 95.1 Mean Corpuscular Hemoglobin 31.1 Mean Corpuscular Hemoglobin Concent 32.7 Red Cell Distribution Width 19.9 H Platelet Count 85 L Mean Platelet Volume 11.3 H Immature Granulocytes % 0.300 Neutrophils % 40.1 Lymphocytes % 43.7 Monocytes % 9.4 Eosinophils % 5.4 Basophils % 1.1 Nucleated Red Blood Cells % 0.0 Immature Granulocytes # 0.010 Neutrophils # 1.5 L Lymphocytes # 1.6 Monocytes # 0.4 Eosinophils # 0.2 Basophils # 0.0 Nucleated Red Blood Cells # 0.0 Sodium Level 142 Potassium Level 4.6 Chloride Level 102 Carbon Dioxide Level 28 Anion Gap 12 Blood Urea Nitrogen 34 H Creatinine 7.38 H Est Glomerular Filtrat Rate mL/min 7 L Glucose Level 102 Hemoglobin A1c 5.9 Calcium Level 8.8 Total Bilirubin 0.4 Direct Bilirubin 0.00 Indirect Bilirubin 0.4 Aspartate Amino Transf (AST/SGOT) 18 Alanine Aminotransferase (ALT/SGPT) 15 Alkaline Phosphatase 221 H Total Protein 6.4 # Albumin 3.4 # Globulin 3.00 Albumin/Globulin Ratio 1.13 Medications Medication Current Medications Miscellaneous Information (Flu Vaccine Previously Dispensed) FLU VACCINE PREVIOUSLY DISPENSED ... NOTE PRN XX NOTE; Start 05/09/18 at 12:30 IV Flush (NS 3 ml) 3 ml PER PROTOCOL IV ; Start 05/09/18 at 13:30 Lorazepam (Ativan) 0.5 mg Q8H PRN PO .ANXIETY; Start 05/09/18 at 13:30 Ondansetron HCl (Zofran Tab) 4 mg Q6H PRN PO NAUSEA/VOMITING; Start 05/09/18 at 13:30 Acetaminophen/ Hydrocodone Bitart ([place] (5/325)) 1 tab Q6H PRN PO .PAIN 4-6; Start 05/09/18 at 13:30 Morphine Sulfate (morphine) 2 mg Q4H PRN IV .PAIN 7-10; Start 05/09/18 at 13:30 Bisacodyl (Dulcolax) 5 mg DAILY PRN PO .CONSTIPATION; Start 05/09/18 at 13:30 Famotidine (Pepcid) 20 mg DAILY PO Last administered on 05/09/18 14:07; Admin Dose 20 MG; Start 05/09/18 at 14:00 Heparin Sodium (Porcine) (Heparin (5000 Units/1ml)) 5,000 unit Q12 SC Last administered on 05/09/18at 20:17; Admin Dose 5,000 UNIT; Start 05/09/18 at 21:00 Aspirin (Aspirin) 81 mg DAILY PO Last administered on 05/09/18 14:07; Admin Dose 81 MG; Start 05/09/18 at 13:30 Atorvastatin Calcium (Lipitor) 80 mg DAILY PO Last administered on 05/09/18at 14:57; Admin Dose 80 MG; Start 05/09/18 at 13:30 Levetiracetam (Keppra) 500 mg BID PO Last administered on 05/09/18 20:07; Admin Dose 500 MG; Start 05/09/18 at 21:00 Levothyroxine Sodium (Synthroid) 200 mcg BEFORE BREAKFAST PO Last administered on 05/10/18 06:13; Admin Dose 200 MCG; Start 05/10/18 at 07:00 Metoprolol Tartrate (Lopressor) 25 mg BID PO Last administered on 05/09/18 20:14; Admin Dose 25 MG; Start 05/09/18 at 13:30 Senna (Senokot) 1 tab BID PO Last administered on 05/09/18 20:07; Admin Dose 1 TAB; Start 05/09/18 at 21:00 Sevelamer Carbonate (Renvela) 0.8 gm WITH MEALS PO Last administered on 05/09/18 17:38; Admin Dose 0.8 GM; Start 05/09/18 at 17:35 Tiotropium Lomax (Spiriva) 1 inh DAILY INH ; Start 05/10/18 at 09:00 Zolpidem Tartrate (Ambien) 5 mg HS MAY REPEAT X 1 PRN PO INSOMNIA; Start 05/09/18 at 13:30 Clopidogrel Bisulfate (plaVIX) 75 mg DAILY PO Last administered on 05/09/18 20:07; Admin Dose 75 MG; Start 05/09/18 at 19:30 Ranolazine (Ranexa) 500 mg Q12 PO Last administered on 05/09/18 20:07; Admin Dose 500 MG; Start 05/09/18 at 21:00 DEANDRE ROCHE DO May 10, 2018 08:33
[2018-05-10] MEDS ORDERED: ASPIRIN 81 MG TAB PO SCH (09:00)
[2018-05-10] MEDS: TIOTROPIUM 18 MCG CAPSULE INHA DEV INH SCH (09:35)
[2018-05-10] MEDS: ATORVASTATIN 80 MG TAB PO SCH (09:35)
[2018-05-10] MEDS: RANOLAZINE (SR) 500 MG TAB PO SCH ×2 (09:35→21:29)
[2018-05-10] MEDS: SENNA TAB PO SCH ×2 (09:36→21:30)
[2018-05-10] MEDS: FAMOTIDINE 20 MG TAB PO SCH (09:36)
[2018-05-10] MEDS: LEVETIRACETAM 500 MG TAB PO SCH ×2 (09:36→21:29)
[2018-05-10] MEDS: CLOPIDOGREL 75 MG TAB PO SCH (09:36)
[2018-05-10] MEDS: ASPIRIN 81 MG TAB PO SCH (09:36)
[2018-05-10] MEDS: METOPROLOL 25 MG TAB PO SCH ×2 (09:36→21:29)
[2018-05-10] MEDS: HEPARIN 5,000 UNIT/1 ML VIAL SC SCH ×2 (09:54→21:36)
--- NOTE | 2018-05-10 11:28 | PN ---
Date/Time of Note Date/Time of Note DATE: 05/10/18 TIME: 11:25 Assessment/Plan VTE Prophylaxis Risk score (from Nsg)>0 risk: 0 SCD applied (from Nsg): No SCD contraindicated: low risk/ambulating Pharmacological prophylaxis: heparin Pharm contraindication: low risk/ambulating Lines/Catheters IV Catheter Type (from Nrsg): Mid Line Urinary Cath still in place: No Assessment/Plan Problems: (1) Chest pain Status: Acute Comment: Her troponins are negative. The clopidogrel and also Ranexa have been taken care of by cardiology. Patient still has symptoms and we know she has coronary disease. Our attempt to get information from [facility] yielded 1 progress note from nephrology that did not mention cardiac catheterization, cardiac arrest or any other incidents. (I am not certain that the author that felt it was necessary to put in his note and therefore this note is not helpful to us at this juncture for our purposes) Qualifiers: Chest pain type: unspecified Qualified Codes: R07.9 - Chest pain, unspecified (2) Atherosclerotic heart disease of [place] coronary artery without angina pectoris Status: Chronic Comment: Cardiology input Qualifiers: [place] vs. transplanted heart: [place] heart Qualified Codes: I25.10 - At herosclerotic heart disease of [place] coronary artery without angina pectoris (3) End stage renal disease on dialysis due to type 2 diabetes mellitus Status: Chronic Comment: As per Dr. Sarah Mcdaniel (4) Essential (primary) hypertension Status: Chronic Comment: Adequate control but hold blood pressure medicines prior to dialysis until after dialysis complete (5) DM (diabetes mellitus), type 2 Status: Chronic Comment: Adequate glycemic control Qualifiers: Diabetes mellitus senior care insulin use: with senior care use Diabetes mellitus complication status: with ophthalmic complications Diabetes mellitus complication detail: with diabetic retinopathy Laterality: bilateral (6) Papillary thyroid carcinoma Onset Date: ~ 02/2013 Status: Chronic Comment: In remission (7) Secondary hyperparathyroidism of renal origin Status: Chronic Comment: Noted. Result Diagram: 05/10/18 0605/10/18 0601 Results 24hrs Laboratory Tests Test 05/09/18 13:53 05/09/18 18:29 05/10/18 06:01 Creatine Kinase 49 50 44 Creatine Kinase Index 1.5 1.6 1.8 Creatinine Kinase MB (Mass) 0.73 0.78 0.79 Troponin I < 0.012 < 0.012 < 0.012 White Blood Count 3.7 L Red Blood Count 3.28 L Hemoglobin 10.2 L Hematocrit 31.2 L Mean Corpuscular Volume 95.1 Mean Corpuscular Hemoglobin 31.1 Mean Corpuscular Hemoglobin Concent 32.7 Red Cell Distribution Width 19.9 H Platelet Count 85 L Mean Platelet Volume 11.3 H Immature Granulocytes % 0.300 Neutrophils % 40.1 Lymphocytes % 43.7 Monocytes % 9.4 Eosinophils % 5.4 Basophils % 1.1 Nucleated Red Blood Cells % 0.0 Immature Granulocytes # 0.010 Neutrophils # 1.5 L Lymphocytes # 1.6 Monocytes # 0.4 Eosinophils # 0.2 Basophils # 0.0 Nucleated Red Blood Cells # 0.0 Sodium Level 142 Potassium Level 4.6 Chloride Level 102 Carbon Dioxide Level 28 Anion Gap 12 Blood Urea Nitrogen 34 H Creatinine 7.38 H Est Glomerular Filtrat Rate mL/min 7 L Glucose Level 102 Hemoglobin A1c 5.9 Calcium Level 8.8 Total Bilirubin 0.4 Direct Bilirubin 0.00 Indirect Bilirubin 0.4 Aspartate Amino Transf (AST/SGOT) 18 Alanine Aminotransferase (ALT/SGPT) 15 Alkaline Phosphatase 221 H Total Protein 6.4 # Albumin 3.4 # Globulin 3.00 Albumin/Globulin Ratio 1.13 Subjective 24 Hr Interval Summary Free Text/Dictation Patient reports she still has chest wall pain from where she would had chest compressions by report from [facility]. Constitutional: no complaints (No fevers chills or sweats) Respiratory: no complaints Cardiovascular: chest pain (Chest pain where she had chest compressions but she states she also gets other chest pains as well when she gets dialysis) Gastrointestinal: no complaints Genitourinary: no complaints Exam/Review of Systems Exam Vitals Vital Signs Date Temp Pulse Resp B/P (MAP) Pulse Ox O2 O2 Flow FiO2 Time Delivery Rate 05/10/18 98.2 77 18 130/59 92 Room Air 08:05 (82) 05/09/18 21 07:32 Intake and Output 05/09/18 05/09/18 05/10/18 1515:00 23:00 07:00 IntakeIntake Total 100 ml 150 ml BalanceBalance 100 ml 150 ml Exam Present charming -[place] female in no obvious distress Constitutional: alert, oriented Neck: supple, non-tender Respiratory: clear to auscultation, normal air movement Cardiovascular: nl pulses Gastrointestinal: soft, nl liver, spleen, non-tender Results Results 24hrs Laboratory Tests Test 05/09/18 13:53 05/09/18 18:29 05/10/18 06:01 Creatine Kinase 49 50 44 Creatine Kinase Index 1.5 1.6 1.8 Creatinine Kinase MB (Mass) 0.73 0.78 0.79 Troponin I < 0.012 < 0.012 < 0.012 White Blood Count 3.7 L Red Blood Count 3.28 L Hemoglobin 10.2 L Hematocrit 31.2 L Mean Corpuscular Volume 95.1 Mean Corpuscular Hemoglobin 31.1 Mean Corpuscular Hemoglobin Concent 32.7 Red Cell Distribution Width 19.9 H Platelet Count 85 L Mean Platelet Volume 11.3 H Immature Granulocytes % 0.300 Neutrophils % 40.1 Lymphocytes % 43.7 Monocytes % 9.4 Eosinophils % 5.4 Basophils % 1.1 Nucleated Red Blood Cells % 0.0 Immature Granulocytes # 0.010 Neutrophils # 1.5 L Lymphocytes # 1.6 Monocytes # 0.4 Eosinophils # 0.2 Basophils # 0.0 Nucleated Red Blood Cells # 0.0 Sodium Level 142 Potassium Level 4.6 Chloride Level 102 Carbon Dioxide Level 28 Anion Gap 12 Blood Urea Nitrogen 34 H Creatinine 7.38 H Est Glomerular Filtrat Rate mL/min 7 L Glucose Level 102 Hemoglobin A1c 5.9 Calcium Level 8.8 Total Bilirubin 0.4 Direct Bilirubin 0.00 Indirect Bilirubin 0.4 Aspartate Amino Transf (AST/SGOT) 18 Alanine Aminotransferase (ALT/SGPT) 15 Alkaline Phosphatase 221 H Total Protein 6.4 # Albumin 3.4 # Globulin 3.00 Albumin/Globulin Ratio 1.13 Medications Medication Current Medications Miscellaneous Information (Flu Vaccine Previously Dispensed) FLU VACCINE PREVIOUSLY DISPENSED ... NOTE PRN XX NOTE; Start 05/09/18 at 12:30 IV Flush (NS 3 ml) 3 ml PER PROTOCOL IV ; Start 05/09/18 at 13:30 Lorazepam (Ativan) 0.5 mg Q8H PRN PO .ANXIETY; Start 05/09/18 at 13:30 Ondansetron HCl (Zofran Tab) 4 mg Q6H PRN PO NAUSEA/VOMITING; Start 05/09/18 at 13:30 Acetaminophen/ Hydrocodone Bitart ([place] (5/325)) 1 tab Q6H PRN PO .PAIN 4-6; Start 05/09/18 at 13:30 Morphine Sulfate (morphine) 2 mg Q4H PRN IV .PAIN 7-10; Start 05/09/18 at 13:30 Bisacodyl (Dulcolax) 5 mg DAILY PRN PO .CONSTIPATION; Start 05/09/18 at 13:30 Famotidine (Pepcid) 20 mg DAILY PO Last administered on 05/10/18 09:36; Admin Dose 20 MG; Start 05/09/18 at 14:00 Heparin Sodium (Porcine) (Heparin (5000 Units/1ml)) 5,000 unit Q12 SC Last administered on 05/10/18 09:54; Admin Dose 5,000 UNIT; Start 05/09/18 at 21:00 Aspirin (Aspirin) 81 mg DAILY PO Last administered on 05/10/18 09:36; Admin Dose 81 MG; Start 05/09/18 at 13:30 Atorvastatin Calcium (Lipitor) 80 mg DAILY PO Last administered on 05/10/18 09:35; Admin Dose 80 MG; Start 05/09/18 at 13:30 Levetiracetam (Keppra) 500 mg BID PO Last administered on 05/10/18 09:36; Admin Dose 500 MG; Start 05/09/18 at 21:00 Levothyroxine Sodium (Synthroid) 200 mcg BEFORE BREAKFAST PO Last administered on 05/10/18 06:13; Admin Dose 200 MCG; Start 05/10/18 at 07:00 Metoprolol Tartrate (Lopressor) 25 mg BID PO Last administered on 05/10/18 09: 36; Admin Dose 25 MG; Start 05/09/18 at 13:30 Senna (Senokot) 1 tab BID PO Last administered on 05/10/18 09:36; Admin Dose 1 TAB; Start 05/09/18 at 21:00 Sevelamer Carbonate (Renvela) 0.8 gm WITH MEALS PO Last administered on 05/09/18 17:38; Admin Dose 0.8 GM; Start 05/09/18 at 17:35 Tiotropium [place] (Spiriva) 1 inh DAILY INH Last administered on 05/10/18 09:35; Admin Dose 1 INH; Start 05/10/18 at 09:00 Zolpidem Tartrate (Ambien) 5 mg HS MAY REPEAT X 1 PRN PO INSOMNIA; Start 05/09/18 at 13:30 Clopidogrel Bisulfate (plaVIX) 75 mg DAILY PO Last administered on 05/10/18at 09:36; Admin Dose 75 MG; Start 05/09/18 at 19:30 Ranolazine (Ranexa) 500 mg Q12 PO Last administered on 05/10/18at 09:35; Admin Dose 500 MG; Start 05/09/18 at 21:00 Diphenhydramine HCl (Benadryl) 25 mg Q8H PRN PO ITCHING; Start 05/10/18 at 11:10 MARGARITO VIVAR MD May 10, 2018 11:28
[2018-05-10] MEDS: DIPHENHYDRAMINE 25 MG CAP PO PRN (12:11)
[2018-05-10] MEDS: morphine 2 MG INJ IV PRN (16:33)
--- NOTE | 2018-05-10 17:17 | CONS ---
Consult Date/Type/Reason Admit Date/Time May 09, 2018 at 08:36 Initial Consult Date 05/10/18 Type of Consultation: cv Requesting Provider: MARGARITO VIVAR MD Date/Time of Note DATE: 05/10/18 TIME: 17:13 Subjective cardiology follow up note S: PT C/O chest wall tenderness. worse with touch. d/w physicians and staff old records reviewed. pt with PCI JEWEL BEARING TURNER RCA and coded post procedure and had hypothermia General: no acute distress HEENT: NC/AT. pupils are equal. round. NECK: NO JVD. no stridor. CV: RRR. systolic murmur; no gallop or rubs. PULM: no wheezing or rhonchi. chest: + pain to touch. GI: SOFT, NT, ND, no rebound or guarding Extremity: trace B/L LE edema. no clubbing. neuro: awake and alert, OX3. Psych: calm and pleasant rectal: deferred EKG was personally reviewed showed normal sinus rhythm nonspecific ST-T wave abnormalities possible old inferior infarct Chest x-ray shows:Cardiomegaly. No pneumonia or failure. Objective Vitals Vital Signs Date Temp Pulse Resp B/P (MAP) Pulse Ox O2 O2 Flow FiO2 Time Delivery Rate 05/10/18 79 16:00 05/10/18 98.6 20 105/49 96 Room Air 15:37 (67) 05/09/18 21 07:32 Intake and Output 05/09/18 05/09/18 05/10/18 1414:59 22:59 06:59 IntakeIntake Total 100 ml 150 ml BalanceBalance 100 ml 150 ml Results/Medications Result Diagram: 05/10/18 0605/10/18 0601 Results 24 hrs Laboratory Tests Test 05/09/18 18:29 05/10/18 06:01 Creatine Kinase 50 44 Creatine Kinase Index 1.6 1.8 Creatinine Kinase MB (Mass) 0.78 0.79 Troponin I < 0.012 < 0.012 White Blood Count 3.7 L Red Blood Count 3.28 L Hemoglobin 10.2 L Hematocrit 31.2 L Mean Corpuscular Volume 95.1 Mean Corpuscular Hemoglobin 31.1 Mean Corpuscular Hemoglobin Concent 32.7 Red Cell Distribution Width 19.9 H Platelet Count 85 L Mean Platelet Volume 11.3 H Immature Granulocytes % 0.300 Neutrophils % 40.1 Lymphocytes % 43.7 Monocytes % 9.4 Eosinophils % 5.4 Basophils % 1.1 Nucleated Red Blood Cells % 0.0 Immature Granulocytes # 0.010 Neutrophils # 1.5 L Lymphocytes # 1.6 Monocytes # 0.4 Eosinophils # 0.2 Basophils # 0.0 Nucleated Red Blood Cells # 0.0 Sodium Level 142 Potassium Level 4.6 Chloride Level 102 Carbon Dioxide Level 28 Anion Gap 12 Blood Urea Nitrogen 34 H Creatinine 7.38 H Est Glomerular Filtrat Rate mL/min 7 L Glucose Level 102 Hemoglobin A1c 5.9 Calcium Level 8.8 Total Bilirubin 0.4 Direct Bilirubin 0.00 Indirect Bilirubin 0.4 Aspartate Amino Transf (AST/SGOT) 18 Alanine Aminotransferase (ALT/SGPT) 15 Alkaline Phosphatase 221 H Total Protein 6.4 # Albumin 3.4 # Globulin 3.00 Albumin/Globulin Ratio 1.13 Home Meds Active Scripts Sevelamer Carbonate* (Renvela*) 800 Mg Tablet, 800 MG PO WITH MEALS for 30 Days, #90 TAB Prov:MARGARITO VIVAR MD 03/04/18 Aspirin (Aspirin) 81 Mg Chew, 81 MG PO DAILY for 30 Days, #30 TAB Prov:MARGARITO VIVAR MD 03/04/18 Atorvastatin* (Atorvastatin*) 80 Mg Tablet, 80 MG PO DAILY for 30 Days, #30 TAB 1 Refill Prov:MARGARITO VIVAR MD 03/04/18 Tiotropium [place]* (Spiriva*) 18 Mcg Cap.w.dev, 1 INH INH DAILY for 30 Days, #30 CAP 1 Refill Prov:MARGARITO VIVAR MD 03/04/18 Reported Medications Sennosides* (Senna Lax*) 8.6 Mg Tablet, 1 TAB PO BID, TAB 05/09/18 Temazepam* (Temazepam*) 30 Mg Capsule, 30 MG PO HS PRN for INSOMNIA, CAP 05/09/18 Levetiracetam* (Levetiracetam*) 500 Mg Tablet, 500 MG PO BID, TAB 05/09/18 Metoprolol Tartrate* (Lopressor*) 25 Mg Tab, 25 MG PO BID, #60 TAB 05/09/18 Hydrocodone/Acetaminophen ([place] 10-325 Tablet) 1 Each Tablet, 1 EACH PO TID, TAB 05/09/18 Levothyroxine Sodium* (Levothyroxine Sodium*) 200 Mcg Tablet, 200 MCG PO BEFORE BREAKFAST, #30 TAB 05/09/18 Discontinued Reported Medications Temazepam* (Temazepam*) 30 Mg Capsule, 30 MG PO HS PRN for INSOMNIA, CAP 01/27/18 Ranolazine* (Ranexa*) 500 Mg Tab.sr.12h, 500 MG PO Q12, TAB 01/27/18 Hydrocodone/Acetaminophen ([place] 10-325 Tablet) 1 Each Tablet, 1 EACH PO, TAB 08/14/17 Loperamide Hcl* (Loperamide Hcl*) 1 Mg/5 Ml Liquid, 2 MG PO PRN for DIARRHEA, ML MAX 16 mg/day 08/14/17 Biotin (Biotin) 5 Mg Tablet, 5 MG PO, TAB 08/14/17 Biotin (BIOTIN) 1 Mg Capsule, 1 MG PO, CAP 08/14/17 Amlodipine Besylate* (Norvasc*) 5 Mg Tablet, 5 MG PO DAILY, TAB 11/20/16 Isosorbide Mononitrate* (Isosorbide Mononitrate*) 30 Mg Tab.er.24h, 30 MG PO DAILY, TAB 11/20/16 Clopidogrel Bisulfate (Clopidogrel) 75 Mg Tablet, 75 MG PO DAILY, #30 TAB 11/20/16 Levothyroxine Sodium* (Levothyroxine Sodium*) 200 Mcg Tablet, 200 MCG PO BEFORE BREAKFAST, #30 TAB 11/20/16 Metoprolol Tartrate* (Lopressor*) 25 Mg Tablet, 25 MG PO BID, #60 TAB 09/26/15 Discontinued Scripts Albuterol Sulfate* (Proair HFA*) 8.5 Gm Hfa.aer.ad, 2 PUFF INH Q6H PRN for WHEEZING AND SOB, #1 INHALER Prov:MARCELLE LAU MD 11/20/16 Medications Current Medications Miscellaneous Information (Flu Vaccine Previously Dispensed) FLU VACCINE PREVIOUSLY DISPENSED ... NOTE PRN XX NOTE; Start 05/09/18 at 12:30 IV Flush (NS 3 ml) 3 ml PER PROTOCOL IV ; Start 05/09/18 at 13:30 Lorazepam (Ativan) 0.5 mg Q8H PRN PO .ANXIETY; Start 05/09/18 at 13:30 Ondansetron HCl (Zofran Tab) 4 mg Q6H PRN PO NAUSEA/VOMITING; Start 05/09/18 at 13:30 Acetaminophen/ Hydrocodone Bitart ([place] (5/325)) 1 tab Q6H PRN PO .PAIN 4-6; Start 05/09/18 at 13:30 Morphine Sulfate (morphine) 2 mg Q4H PRN IV .PAIN 7-10 Last administered on 05/10/18 16:33; Admin Dose 2 MG; Start 05/09/18 at 13:30 Bisacodyl (Dulcolax) 5 mg DAILY PRN PO .CONSTIPATION; Start 05/09/18 at 13:30 Famotidine (Pepcid) 20 mg DAILY PO Last administered on 05/10/18 09:36; Admin Dose 20 MG; Start 05/09/18 at 14:00 Heparin Sodium (Porcine) (Heparin (5000 Units/1ml)) 5,000 unit Q12 SC Last administered on 05/10/18 09:54; Admin Dose 5,000 UNIT; Start 05/09/18 at 21:00 Aspirin (Aspirin) 81 mg DAILY PO Last administered on 05/10/18 09:36; Admin Dose 81 MG; Start 05/09/18 at 13:30 Atorvastatin Calcium (Lipitor) 80 mg DAILY PO Last administered on 05/10/18 09 :35; Admin Dose 80 MG; Start 05/09/18 at 13:30 Levetiracetam (Keppra) 500 mg BID PO Last administered on 05/10/18 09:36; Admin Dose 500 MG; Start 05/09/18 at 21:00 Levothyroxine Sodium (Synthroid) 200 mcg BEFORE BREAKFAST PO Last administered on 05/10/18 06:13; Admin Dose 200 MCG; Start 05/10/18 at 07:00 Metoprolol Tartrate (Lopressor) 25 mg BID PO Last administered on 05/10/18 09:36; Admin Dose 25 MG; Start 05/09/18 at 13:30 Senna (Senokot) 1 tab BID PO Last administered on 05/10/18 09:36; Admin Dose 1 TAB; Start 05/09/18 at 21:00 Sevelamer Carbonate (Renvela) 0.8 gm WITH MEALS PO Last administered on 05/09/18 17:38; Admin Dose 0.8 GM; Start 05/09/18 at 17:35 Tiotropium [place] (Spiriva) 1 inh DAILY INH Last administered on 05/10/18 09:35; Admin Dose 1 INH; Start 05/10/18 at 09:00 Zolpidem Tartrate (Ambien) 5 mg HS MAY REPEAT X 1 PRN PO INSOMNIA; Start 05/09/18 at 13:30 Clopidogrel Bisulfate (plaVIX) 75 mg DAILY PO Last administered on 05/10/18at 09:36; Admin Dose 75 MG; Start 05/09/18 at 19:30 Ranolazine (Ranexa) 500 mg Q12 PO Last administered on 05/10/18 09:35; Admin Dose 500 MG; Start 05/09/18 at 21:00 Diphenhydramine HCl (Benadryl) 25 mg Q8H PRN PO ITCHING Last administered on 05/10/18 12:11; Admin Dose 25 MG; Start 05/10/18 at 11:10 Assessment/Plan Hospital Course (Demo Recall) 1. Chest pain : OH ruled out and is reproducible now. but worsens during HD. 2. History of coronary artery disease status post likely PCI of chronic total occlusion of the right coronary artery. also with JEWEL BEARING TURNER LCX. Diag per [facility] 3. History of postop seizure / cardiac arrest requiring appears to be hypothermia protocol 4. Renal failure on dialysis 5. History of hypertension 6. History of diabetes 7. History of thyroid cancer Recommendation: Continue with aspirin. plavix Hemodialysis as per renal we will monitor on telemetry specially during HD to see if there is any arrhythmia \statin will be continued Diabetic management as per Dr. Vivar I have also added Ranexa to her regimen Thank you for his referral. We will continue to follow along with you until or his associate return on Friday YESI BERNABE MD [facility] YESI BERNABE MD May 10, 2018 17:17
--- NOTE | 2018-05-10 17:47 | RADRPT ---
Echocardiogram Report Patient Name: MARINA CALDERONPatient ID: [id number] : 1965 (53y )Study Date: 05/10/2018 8:59:09 AM Gender: FAccession #: [id number] Tech: [facility] [place] Location: Ref.Physician: JAKE ROGERS Height(Cm): 170 BSA: 1.91Weight(Kg): 77.1 Quality: AdequateAccount #: Procedures: Echocardiographic Report: Transthoracic echocardiogram with complete 2D, M-Mode, and doppler examination. Indications: Acute Coronary Syndrome. Measurements: 2D/M Mode Doppler Measurement Value Normal Range Measurement Value Normal Range LA Volume 103.0 [ 22.0 - 52.0 ] ml AV Peak Francisco J 1.2 [ 100.0 - 170.0 ] c m/sec LA Volume Index 55 [ 16 - 34 ] ml/m2 AV Peak PG 6.0 [ 2.0 - 9.0 ] mmHg LVIDd 2D 5.5 [ 3.8 - 5.2 ] cm LVOT Peak Francisco J 0.6 [ 70.0 - 110.0 ] cm /sec LVIDs 2D 4.9 [ 2.2 - 3.5 ] cm LVOT Peak PG 1.0 [ 2.0 - 6.0 ] mmHg LVPWd 2D 1.3 [ 0.6 - 0.9 ] cm MV E Peak Francisco J 1.5 [ 60.0 - 130.0 ] cm /sec IVSd 2D 1.6 [ 0.6 - 0.9 ] cm MV A Peak Francisco J 0.8 [ 100.0 - 120.0 ] c m/sec AoR Diam 2D 3.0 [ 2.3 - 3.1 ] cm MV E/A 2.0 [ 0.8 - 1.5 ] ratio EF 2D 24.5 [ 54.0 - 74.0 ] percent MV PHT 36.0 [ 20.0 - 100.0 ] ms ec LA Dimen 2D 5.3 [ 2.7 - 3.8 ] cm MV Decel Time 124 [ 104 - 258 ] msec MV Decel [place] 12 Lat E` Francisco J 0.1 [ 10.0 - 15.0 ] cm/ sec Lateral E/E` 19.9 [ 1.0 - 2.0 ] ratio Med E` Francisco J 0.0 cm/sec MV E/A 2.0 [ 0.8 - 1.5 ] ratio MVA PHT 6.1 [ 2.0 - 4.0 ] cm2 TR Peak Francisco J 3.7 [ 100.0 - 280.0 ] c m/sec TR Peak PG 54.0 mmHg PV Peak Francisco J 0.7 [ 40.0 - 80.0 ] cm/ sec PV Peak PG 2.0 mmHg RVSP 74.0 [ 10.0 - 36.0 ] mmH g RA Pressure 20.0 mmHg Findings: Left Ventricle: Normal left ventricular cavity size. Mild to moderate concentric left ventricular hypertrophy. Moderate left ventricular systolic dysfunction. Ejection fraction is visually estimated at 35 %. E/E'= 37. Multiple segmental wall motion abnormalities. Right Ventricle: Normal right ventricular size. Mild right ventricular hypokinesis. Left Atrium: There is severe enlargement of left atrium. Right Atrium: There is moderate enlargement of right atrium. Atrial Septum: Normal atrial septum. Mitral Valve: Mitral valve leaflets appear mildly thickened. Mild mitral leaflet calcification. Mild mitral annular calcification. Moderate to severe mitral valve regurgitation. Aortic Valve: Aortic sclerosis without significant stenosis. Aortic cusps appear mildly calcified. Trileaflet aortic valve. Trace aortic valve regurgitation. Tricuspid Valve: Normal appearance of the tricuspid valve. Estimated peak PA systolic pressure 74 mmHg. There is moderate to severe tricuspid regurgitation. Pulmonic Valve: Normal pulmonic valve appearance. There is trace pulmonic regurgitation. Pericardium: Normal pericardium with no significant pericardial effusion. Aorta: Normal aortic root. There is mild aortic root calcification. IVC: Dilated IVC without respiratory collapse consistent with elevated right atrial pressure. Pulmonary Artery: Normal pulmonary artery size. Conclusions: There is severe enlargement of left atrium. There is moderate enlargement of right atrium. Normal left ventricular cavity size. Mild to moderate concentric left ventricular hypertrophy. Moderate left ventricular systolic dysfunction. Ejection fraction is visually estimated at 35 %. E/E'= 37. Multiple segmental wall motion abnormalities. Mitral valve leaflets appear mildly thickened. Mild mitral leaflet calcification. Mild mitral annular calcification. Moderate to severe mitral valve regurgitation. Normal appearance of the tricuspid valve. Estimated peak PA systolic pressure 74 mmHg. There is moderate to severe tricuspid regurgitation. Aortic sclerosis without significant stenosis. Aortic cusps appear mildly calcified. Trileaflet aortic valve. Trace aortic valve regurgitation. Electronically Signed By: Jake Rogers 2018-05-10 17:47:06 PDT
[2018-05-11] VITALS (26 sets, daily range): BP systolic 130–157; BP diastolic 59–92; PULSE 70–87; RESP 17–20
[2018-05-11] MEDS: morphine 2 MG INJ IV PRN ×2 (00:50→20:32)
[2018-05-11] MEDS: LEVOTHYROXINE 100 MCG TAB PO SCH (06:08)
[2018-05-11] MEDS: CLOPIDOGREL 75 MG TAB PO SCH (08:13)
[2018-05-11] MEDS: TIOTROPIUM 18 MCG CAPSULE INHA DEV INH SCH (08:13)
[2018-05-11] MEDS: FAMOTIDINE 20 MG TAB PO SCH (08:13)
[2018-05-11] MEDS: SEVELAMER CARBONATE 0.8 GM PKT PO SCH ×3 (08:13→17:55)
[2018-05-11] MEDS: ASPIRIN 81 MG TAB PO SCH (08:13)
[2018-05-11] MEDS: LEVETIRACETAM 500 MG TAB PO SCH ×2 (08:13→20:32)
[2018-05-11] MEDS: ATORVASTATIN 80 MG TAB PO SCH (08:13)
[2018-05-11] MEDS: RANOLAZINE (SR) 500 MG TAB PO SCH ×2 (08:16→20:32)
[2018-05-11] MEDS: SENNA TAB PO SCH ×2 (08:17→20:32)
[2018-05-11] MEDS: HEPARIN 5,000 UNIT/1 ML VIAL SC SCH ×2 (08:28→21:17)
[2018-05-11] MEDS: METOPROLOL 25 MG TAB PO SCH (08:30)
--- NOTE | 2018-05-11 09:45 | PN ---
DATE: 05/11/2018 SUBJECTIVE: The patient remains stable. Continue to complain about intermittent chest pain. No oth er events noted. OBJECTIVE: VITAL SIGNS: Blood pressure is 131/59, pulse 80, respirations 20, temperature 98.6. HEENT: Head is normocephalic. NECK: Supple. HEART: Regular rate. LUNGS: Show diminished breath sounds at the base. ABDOMEN: Soft, nontender to palpation. No rebound or guarding. EXTREMITIES: Negative for clubbing, cyanosis, no edema. DERMATOLOGIC: No rashes. MUSCULOSKELETAL: No joint effusion. NEUROLOGIC: No change in exam. MEDICATIONS: The patient's medications have been reviewed. LABORATORY DATA: The laboratory data has been reviewed. ASSESSMENT AND PLAN: 1. End-stage renal disease. Plan is for hemodialysis today. We will dialyze for 3 hours 3k bath, c alcium 2.5. 2. Anemia. Monitor hemoglobin and hematocrit levels. Will give Epogen with hemodialysis. 3. Mineral bone disorder. The patient is status post parathyroidectomy on IV . Continue to mon itor. 4. Hypertension. Continue current blood pressure regimen. 5. Diabetes. Continue current insulin regimen. 6. Thyroid cancer. Continue medical management. 7. Coronary artery disease, status post percutaneous coronary intervention. Continue medical manage ment. 8. History of cardiac arrest. 9. Chest pain, etiology may be musculoskeletal versus cardiac. Continue to monitor. Follow up with Cardiology for recommendations. Dictated By: HARVEY LUCIO DO NR/NTS Conf#: [id number] DID#: [id number] CC: GUI VARGAS MD; DEANDRE ROCHE DO;*EndCC*
[2018-05-11] MEDS: DIPHENHYDRAMINE 25 MG CAP PO PRN (11:31)
--- NOTE | 2018-05-11 12:12 | CONS ---
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 Pain is also worse with coughing. Serial cardiac enzymes are negative. -Patient had recent complex intervention of the RCA at [facility]. It appears as per the medical records, patient with possible postoperative cardiac arrest. I asked for records to be scanned into EMR to be reviewed. She does have a diminished ejection fraction on current echocardiogram on this admission which is new compared to August 2017. -Would continue dual antiplatelet therapy, continue beta-mariaelena, start JIMENEZ inhibitor for afterload reduction -Consider trial of anti-inflammatories for chest wall pain -Fluid management via hemodialysis as per nephrology Consultation Date/Type/Reason Admit Date/Time May 09, 2018 at 08:36 Initial Consult Date 05/10/18 Type of Consult Cardiology Requesting Provider: MARGARITO VIVAR MD Date/Time of Note DATE: 05/11/18 TIME: 12:07 24 HR Interval Summary Free Text/Dictation Chest pain is better. Chest pain is with palpation of chest wall, and coughing. Pain is nonexertional. She denies any shortness of breath Exam/Review of Systems Vital Signs Vitals Vital Signs Date Temp Pulse Resp B/P (MAP) Pulse Ox O2 O2 Flow FiO2 Time Delivery Rate 05/11/18 85 12:05 05/11/18 98.3 20 151/84 96 11:18 (106) 05/11/18 Room Air 10:03 05/09/18 21 07:32 Intake and Output 05/10/18 05/10/18 05/11/18 1515:00 23:00 07:00 IntakeIntake Total 300 ml 120 ml BalanceBalance 300 ml 120 ml Exam Constitutional: alert, oriented (Undergoing hemodialysis) Respiratory: other (Coarse breath sounds bilaterally, no wheezing) Cardiovascular: regular rate and rhythm (S1-S2 heard) Gastrointestinal: soft, non-tender, bowel sounds Musculoskeletal: other (Pain with palpation of chest wall) Extremities: edema (Trace) Labs Result Diagram: 05/10/1860005/10/18 06 Medications Medications Current Medications Miscellaneous Information (Flu Vaccine Previously Dispensed) FLU VACCINE PREVIOUSLY DISPENSED ... NOTE PRN XX NOTE; Start 05/09/18 at 12:30 IV Flush (NS 3 ml) 3 ml PER PROTOCOL IV ; Start 05/09/18 at 13:30 Lorazepam (Ativan) 0.5 mg Q8H PRN PO .ANXIETY; Start 05/09/18 at 13:30 Ondansetron HCl (Zofran Tab) 4 mg Q6H PRN PO NAUSEA/VOMITING; Start 05/09/18 at 13:30 Acetaminophen/ Hydrocodone Bitart ([place] (5/325)) 1 tab Q6H PRN PO .PAIN 4-6; Start 05/09/18 at 13:30 Morphine Sulfate (morphine) 2 mg Q4H PRN IV .PAIN 7-10 Last administered on 05/11/18at 00:50; Admin Dose 2 MG; Start 05/09/18 at 13:30 Bisacodyl (Dulcolax) 5 mg DAILY PRN PO .CONSTIPATION; Start 05/09/18 at 13:30 Famotidine (Pepcid) 20 mg DAILY PO Last administered on 05/11/18 08:13; Admin Dose 20 MG; Start 05/09/18 at 14:00 Heparin Sodium (Porcine) (Heparin (5000 Units/1ml)) 5,000 unit Q12 SC Last administered on 05/11/18 08:28; Admin Dose 5,000 UNIT; Start 05/09/18 at 21:00 Aspirin (Aspirin) 81 mg DAILY PO Last administered on 05/11/18 08:13; Admin Dose 81 MG; Start 05/09/18 at 13:30 Atorvastatin Calcium (Lipitor) 80 mg DAILY PO Last administered on 05/11/18 08:13; Admin Dose 80 MG; Start 05/09/18 at 13:30 Levetiracetam (Keppra) 500 mg BID PO Last administered on 05/11/18 08:13; Admin Dose 500 MG; Start 05/09/18 at 21:00 Levothyroxine Sodium (Synthroid) 200 mcg BEFORE BREAKFAST PO Last administered on 05/11/18 06:08; Admin Dose 200 MCG; Start 05/10/18 at 07:00 Metoprolol Tartrate (Lopressor) 25 mg BID PO Last administered on 05/10/18 21:29; Admin Dose 25 MG; Start 05/09/18 at 13:30 Senna (Senokot) 1 tab BID PO Last administered on 05/10/18at 21:30; Admin Dose 1 TAB; Start 05/09/18 at 21:00 Sevelamer Carbonate (Renvela) 0.8 gm WITH MEALS PO Last administered on 05/11/18 08:13; Admin Dose 0.8 GM; Start 05/09/18 at 17:35 Tiotropium [place] (Spiriva) 1 inh DAILY INH Last administered on 05/11/18at 08:13; Admin Dose 1 INH; Start 05/10/18 at 09:00 Zolpidem Tartrate (Ambien) 5 mg HS MAY REPEAT X 1 PRN PO INSOMNIA; Start 05/09/18 at 13:30 Clopidogrel Bisulfate (plaVIX) 75 mg DAILY PO Last administered on 05/11/18at 08:13; Admin Dose 75 MG; Start 05/09/18 at 19:30 Ranolazine (Ranexa) 500 mg Q12 PO Last administered on 05/11/18at 08:16; Admin Dose 500 MG; Start 05/09/18 at 21:00 Diphenhydramine HCl (Benadryl) 25 mg Q8H PRN PO ITCHING Last administered on 05/11/18 11:31; Admin Dose 25 MG; Start 05/10/18 at 11:10 Epoetin Geo (Epogen (Esrd)) 10,000 units MoWeFr@17 SC ; Start 05/11/18 at 17:00 Heri Schaefer DO May 11, 2018 12:12
--- NOTE | 2018-05-11 13:18 | PN ---
Date/Time of Note Date/Time of Note DATE: 05/11/18 TIME: 13:11 Assessment/Plan VTE Prophylaxis Risk score (from Nsg)>0 risk: 4 SCD applied (from Nsg): Yes Pharmacological prophylaxis: heparin Lines/Catheters IV Catheter Type (from Nrsg): Mid Line Central line still needed: Yes Urinary Cath still in place: No Assessment/Plan Hospital Course patient admitted with chest pain probably 2nd to chest compression post arrest some other issues 2nd to dialysis. problems resolving Assessment/Plan will obtain social service consult await cardiology and renal assessment . Result Diagram: 05/10/1860005/10/18 06 Results 24hrs Laboratory Tests Test 05/11/18 09:25 Hepatitis B Surface Antigen NEGATIVE Subjective 24 Hr Interval Summary Constitutional: no complaints, improved Eyes: no complaints ENT: no complaints Respiratory: pain, shortness of breath Cardiovascular: lightheadedness Gastrointestinal: no complaints Genitourinary: no complaints Musculoskeletal: other (chest wall pain post cardiac arrest) Skin: no complaints Neurologic: headache Lymphatic: no complaints Psychological: depression Immunologic: no complaints Exam/Review of Systems Exam Vitals Vital Signs Date Temp Pulse Resp B/P (MAP) Pulse Ox O2 O2 Flow FiO2 Time Delivery Rate 05/11/18 85 17 141/92 95 Room Air 12:39 (108) 05/11/18 98.3 11:18 05/09/18 21 07:32 Intake and Output 05/10/18 05/10/18 05/11/18 1515:00 23:00 07:00 IntakeIntake Total 300 ml 120 ml BalanceBalance 300 ml 120 ml Constitutional: alert, oriented, well developed Psych: depression Head: normocephalic, atraumatic Eyes: nl conjunctiva ENMT: nl external ears & nose Neck: supple Respiratory: clear to auscultation, other (chest wall tenderness) Cardiovascular: regular rate and rhythm Gastrointestinal: soft Neurological: nl mental status, nl speech Skin: nl turgor Lymph: nl lymph nodes Results Results 24hrs Laboratory Tests Test 05/11/18 09:25 Hepatitis B Surface Antigen NEGATIVE Medications Medication Current Medications Miscellaneous Information (Flu Vaccine Previously Dispensed) FLU VACCINE PREVIOUSLY DISPENSED ... NOTE PRN XX NOTE; Start 05/09/18 at 12:30 IV Flush (NS 3 ml) 3 ml PER PROTOCOL IV ; Start 05/09/18 at 13:30 Lorazepam (Ativan) 0.5 mg Q8H PRN PO .ANXIETY; Start 05/09/18 at 13:30 Ondansetron HCl (Zofran Tab) 4 mg Q6H PRN PO NAUSEA/VOMITING; Start 05/09/18 at 13:30 Acetaminophen/ Hydrocodone Bitart ([place] (5/325)) 1 tab Q6H PRN PO .PAIN 4-6; Start 05/09/18 at 13:30 Morphine Sulfate (morphine) 2 mg Q4H PRN IV .PAIN 7-10 Last administered on 05/11/18 00:50; Admin Dose 2 MG; Start 05/09/18 at 13:30 Bisacodyl (Dulcolax) 5 mg DAILY PRN PO .CONSTIPATION; Start 05/09/18 at 13:30 Famotidine (Pepcid) 20 mg DAILY PO Last administered on 05/11/18 08:13; Admin Dose 20 MG; Start 05/09/18 at 14:00 Heparin Sodium (Porcine) (Heparin (5000 Units/1ml)) 5,000 unit Q12 SC Last administered on 05/11/18 08:28; Admin Dose 5,000 UNIT; Start 05/09/18 at 21:00 Aspirin (Aspirin) 81 mg DAILY PO Last administered on 05/11/18 08:13; Admin Dose 81 MG; Start 05/09/18 at 13:30 Atorvastatin Calcium (Lipitor) 80 mg DAILY PO Last administered on 05/11/18 08:13; Admin Dose 80 MG; Start 05/09/18 at 13:30 Levetiracetam (Keppra) 500 mg BID PO Last administered on 05/11/18 08:13; Admin Dose 500 MG; Start 05/09/18 at 21:00 Levothyroxine Sodium (Synthroid) 200 mcg BEFORE BREAKFAST PO Last administered on 05/11/18 06:08; Admin Dose 200 MCG; Start 05/10/18 at 07:00 Senna (Senokot) 1 tab BID PO Last administered on 05/10/18 21:30; Admin Dose 1 TAB; Start 05/09/18 at 21:00 Sevelamer Carbonate (Renvela) 0.8 gm WITH MEALS PO Last administered on 05/11/18 08:13; Admin Dose 0.8 GM; Start 05/09/18 at 17:35 Tiotropium [place] (Spiriva) 1 inh DAILY INH Last administered on 05/11/18at 08:13; Admin Dose 1 INH; Start 05/10/18 at 09:00 Zolpidem Tartrate (Ambien) 5 mg HS MAY REPEAT X 1 PRN PO INSOMNIA; Start 05/09/18 at 13:30 Clopidogrel Bisulfate (plaVIX) 75 mg DAILY PO Last administered on 05/11/18at 08:13; Admin Dose 75 MG; Start 05/09/18 at 19:30 Ranolazine (Ranexa) 500 mg Q12 PO Last administered on 05/11/18at 08:16; Admin Dose 500 MG; Start 05/09/18 at 21:00 Diphenhydramine HCl (Benadryl) 25 mg Q8H PRN PO ITCHING Last administered on 05/11/18at 11:31; Admin Dose 25 MG; Start 05/10/18 at 11:10 Epoetin Geo (Epogen (Esrd)) 10,000 units MoWeFr@17 SC ; Start 05/11/18 at 17:00 Carvedilol (Coreg) 3.125 mg BID PO ; Start 05/11/18 at 21:00 Lisinopril (Zestril) 5 mg DAILY PO ; Start 05/12/18 at 09:00 KISHORE HURST MD May 11, 2018 13:18
[2018-05-11] MEDS ORDERED: EPOETIN ALFA-EPBX (ESRD) 10,000 UNIT/ML VIAL SC SCH (17:00)
[2018-05-12] VITALS (10 sets, daily range): BP systolic 128–146; BP diastolic 57–75; PULSE 73–81; RESP 17–20
[2018-05-12] MEDS: LEVOTHYROXINE 100 MCG TAB PO SCH (06:04)
[2018-05-12] MEDS: SEVELAMER CARBONATE 0.8 GM PKT PO SCH ×3 (07:55→17:55)
[2018-05-12] MEDS: ATORVASTATIN 80 MG TAB PO SCH (08:05)
[2018-05-12] MEDS: RANOLAZINE (SR) 500 MG TAB PO SCH (08:05)
[2018-05-12] MEDS: FAMOTIDINE 20 MG TAB PO SCH (08:05)
[2018-05-12] MEDS: LEVETIRACETAM 500 MG TAB PO SCH (08:05)
[2018-05-12] MEDS: SENNA TAB PO SCH (08:05)
[2018-05-12] MEDS: CLOPIDOGREL 75 MG TAB PO SCH (08:05)
[2018-05-12] MEDS: ASPIRIN 81 MG TAB PO SCH (08:05)
[2018-05-12] MEDS: HEPARIN 5,000 UNIT/1 ML VIAL SC SCH (08:19)
--- NOTE | 2018-05-12 08:28 | PN ---
Date/Time of Note Date/Time of Note DATE: 05/12/18 TIME: 08:25 Assessment/Plan VTE Prophylaxis Risk score (from Nsg)>0 risk: 3 SCD applied (from Nsg): Yes Pharmacological prophylaxis: heparin Lines/Catheters IV Catheter Type (from Nrsg): [place] Urinary Cath still in place: No Assessment/Plan Hospital Course patient admitted with chest pain probably 2nd to chest compression post arrest some other issues 2nd to dialysis. problems resolving Assessment/Plan patient improving slowly cardiac status seems stable will ask for discharge planning Cont Hosp Indication/DC Plan: awai further dialysis and cardiac clearance Result Diagram: 05/10/1860005/10/18600 Results 24hrs Laboratory Tests Test 05/11/18 09:25 Hepatitis B Surface Antigen NEGATIVE Subjective 24 Hr Interval Summary Constitutional: no complaints, improved Eyes: no complaints Respiratory: no complaints Cardiovascular: no complaints Gastrointestinal: no complaints Genitourinary: no complaints Musculoskeletal: back pain Skin: no complaints Neurologic: no complaints Endocrine: no complaints Lymphatic: no complaints Psychological: no complaints Immunologic: no complaints Exam/Review of Systems Exam Vitals Vital Signs Date Temp Pulse Resp B/P (MAP) Pulse Ox O2 O2 Flow FiO2 Time Delivery Rate 05/12/18 98.4 74 17 128/57 93 07:27 (80) 05/11/18 Room Air 12:39 05/09/18 21 07:32 Intake and Output 05/11/18 05/11/18 05/12/18 1515:00 23:00 07:00 IntakeIntake Total 150 ml OutputOutput Total 900 ml BalanceBalance -900 ml 150 ml Constitutional: alert, oriented Psych: no complaints Head: normocephalic Eyes: nl conjunctiva ENMT: nl external ears & nose Neck: supple Respiratory: clear to auscultation, normal air movement Cardiovascular: regular rate and rhythm Gastrointestinal: soft Skin: nl turgor Lymph: nl lymph nodes Results Results 24hrs Laboratory Tests Test 05/11/18 09:25 Hepatitis B Surface Antigen NEGATIVE Medications Medication Current Medications Miscellaneous Information (Flu Vaccine Previously Dispensed) FLU VACCINE PREVIOUSLY DISPENSED ... NOTE PRN XX NOTE; Start 05/09/18 at 12:30 IV Flush (NS 3 ml) 3 ml PER PROTOCOL IV ; Start 05/09/18 at 13:30 Lorazepam (Ativan) 0.5 mg Q8H PRN PO .ANXIETY; Start 05/09/18 at 13:30 Ondansetron HCl (Zofran Tab) 4 mg Q6H PRN PO NAUSEA/VOMITING; Start 05/09/18 at 13:30 Acetaminophen/ Hydrocodone Bitart ([place] (5/325)) 1 tab Q6H PRN PO .PAIN 4-6; Start 05/09/18 at 13:30 Morphine Sulfate (morphine) 2 mg Q4H PRN IV .PAIN 7-10 Last administered on 05/11/18 20:32; Admin Dose 2 MG; Start 05/09/18 at 13:30 Bisacodyl (Dulcolax) 5 mg DAILY PRN PO .CONSTIPATION; Start 05/09/18 at 13:30 Famotidine (Pepcid) 20 mg DAILY PO Last administered on 05/12/18 08:05; Admin Dose 20 MG; Start 05/09/18 at 14:00 Heparin Sodium (Porcine) (Heparin (5000 Units/1ml)) 5,000 unit Q12 SC Last administered on 05/12/18 08:19; Admin Dose 5,000 UNIT; Start 05/09/18 at 21:00 Aspirin (Aspirin) 81 mg DAILY PO Last administered on 05/12/18 08:05; Admin Dose 81 MG; Start 05/09/18 at 13:30 Atorvastatin Calcium (Lipitor) 80 mg DAILY PO Last administered on 05/12/18 08:05; Admin Dose 80 MG; Start 05/09/18 at 13:30 Levetiracetam (Keppra) 500 mg BID PO Last administered on 05/12/18 08:05; Admin Dose 500 MG; Start 05/09/18 at 21:00 Levothyroxine Sodium (Synthroid) 200 mcg BEFORE BREAKFAST PO Last administered on 05/12/18 06:04; Admin Dose 200 MCG; Start 05/10/18 at 07:00 Senna (Senokot) 1 tab BID PO Last administered on 05/12/18 08:05; Admin Dose 1 TAB; Start 05/09/18 at 21:00 Sevelamer Carbonate (Renvela) 0.8 gm WITH MEALS PO Last administered on 05/11/18 08:13; Admin Dose 0.8 GM; Start 05/09/18 at 17:35 Tiotropium [place] (Spiriva) 1 inh DAILY INH Last administered on 05/11/18at 0 8:13; Admin Dose 1 INH; Start 05/10/18 at 09:00 Zolpidem Tartrate (Ambien) 5 mg HS MAY REPEAT X 1 PRN PO INSOMNIA; Start 05/09/18 at 13:30 Clopidogrel Bisulfate (plaVIX) 75 mg DAILY PO Last administered on 05/12/18 08:05; Admin Dose 75 MG; Start 05/09/18 at 19:30 Ranolazine (Ranexa) 500 mg Q12 PO Last administered on 05/12/18 08:05; Admin Dose 500 MG; Start 05/09/18 at 21:00 Diphenhydramine HCl (Benadryl) 25 mg Q8H PRN PO ITCHING Last administered on 05/11/18at 11:31; Admin Dose 25 MG; Start 05/10/18 at 11:10 Epoetin Geo-epbx (RETACRIT(esrd)) 10,000 unit MoWeFr@17 SC Last administered on 05/11/18at 16:29; Admin Dose 10,000 UNIT; Start 05/11/18 at 17:00 Carvedilol (Coreg) 3.125 mg BID PO Last administered on 05/12/18 08:07; Admin Dose 3.125 MG; Start 05/11/18 at 21:00 Lisinopril (Zestril) 5 mg DAILY PO Last administered on 05/12/18 08:06; Admin Dose 5 MG; Start 05/12/18 at 09:00 KISHORE HURST MD May 12, 2018 08:28
[2018-05-12] MEDS ORDERED: LISINOPRIL 5 MG TAB PO SCH (09:00)
--- NOTE | 2018-05-12 09:16 | PN ---
DATE: 05/12/2018 SUBJECTIVE: The patient is stable. No events overnight. She had hemodialysis yesterday, tolerated well. OBJECTIVE: VITAL SIGNS: Blood pressure is 128/56, pulse 74, respirations 17, temperature 98.4. HEENT: Head is normocephalic. NECK: Supple. HEART: Regular rate. LUNGS: Show diminished breath sounds at the base. ABDOMEN: Soft, nontender to palpation without rebound or guarding. EXTREMITIES: Negative for clubbing, cyanosis, no edema. DERMATOLOGIC: No rashes. MUSCULOSKELETAL: No joint effusion. NEUROLOGIC: No change in exam. MEDICATIONS: Reviewed. LABORATORY DATA: Reviewed. ASSESSMENT AND PLAN: 1. End-stage renal disease. The patient had hemodialysis yesterday, tolerated well. Plan is for di alysis tomorrow. 2. Anemia. Continue to monitor hemoglobin and hematocrit levels. We will give Epogen with hemodial ysis. 3. Mineral bone disorder. The patient is status post parathyroidectomy. Continue IV calcimimetic. Monitor closely. 4. Hypertension. Continue current blood pressure regimen. 5. Diabetes. Continue current insulin regimen. 6. History of thyroid cancer. Continue to monitor. 7. Coronary artery disease. Continue medical management. 8. History of cardiac arrest. 9. Chest pain, etiology may be musculoskeletal. Continue to monitor. Follow up with cardiology. A gree with anti-inflammatories. Dictated By: HARVEY LUCIO DO NR/NTS Conf#: [id number] DID#: [id number] CC: DEANDRE ROCHE DO; MARGARITO VIVAR MD;*End*
[2018-05-12] MEDS: DIPHENHYDRAMINE 25 MG CAP PO PRN (09:52)
[2018-05-12] MEDS: TIOTROPIUM 18 MCG CAPSULE INHA DEV INH SCH (10:00)
--- NOTE | 2018-05-12 16:00 | QN ---
Documentation Comment per Discharge planning team patient no longer Qualifies for Inpatient care so she will need to be discharge KISHORE HURST MD May 12, 2018 16:00
--- NOTE | 2018-05-12 16:06 | PDOCDIS ---
Discharge Instructions DIAGNOSIS Discharge Diagnosis chest pain resolved 2. C.A.D. with Angina stable now 3. CRF on dialysis D.M.type2 4.Papillary thyroid cancer CONDITION [id number] Patient Condition: [id number] Fair HOME CARE INSTRUCTIONS: [id number] Diet Instructions: Sruxl6a Reduced Sodium Edmgz5Os Special Diet: Zkoov5l renal diet ACTIVITY: Thhwe5Hi Activity Restrictions: Tzarg4p Slowly Increase Activity [id number] Bathing Restrictions: Hqpkn5c Shower FOLLOW UP/APPOINTMENTS Follow-up Plan patient to go to dialysis next scheduled appointment OTHER ORDERS: Other Orders: to keep her upcoming appoint. with me SCHOOL/WORK RELEASE May return to School/Work on: Jun 09, 2018 May return to School/Work with: No Restrictions KISHORE HURST MD May 12, 2018 16:06
--- NOTE | 2018-05-12 16:13 | DS ---
Date/Time of Note Date/Time of Note DATE: 05/12/18 TIME: 16:09 Discharge Summary Admission/Discharge Info Admit Date/Time May 09, 2018 at 08:36 Discharge Date/Time 05/12/2018 1600 Discharge Diagnosis chest pain resolved 2. C.A.D. with Angina stable now 3. CRF on dialysis D.M.type2 4.Papillary thyroid cancer Patient Condition: Fair Consults cardiology and nephrology Procedures hemo dialysis Hx of Present Illness patient presented to ER with chest pain known CAD was admitted to R/[facility] Hospital Course patient admitted with chest pain probably 2nd to chest compression post arrest some other issues 2nd to dialysis. problems resolving Home Meds Active Scripts Sevelamer Carbonate* (Renvela*) 800 Mg Tablet, 800 MG PO WITH MEALS for 30 Days, #90 TAB Prov:MARGARITO VIVAR MD 03/04/18 Aspirin (Aspirin) 81 Mg Chew, 81 MG PO DAILY for 30 Days, #30 TAB Prov:MARGARITO VIVAR MD 03/04/18 Atorvastatin* (Atorvastatin*) 80 Mg Tablet, 80 MG PO DAILY for 30 Days, #30 TAB 1 Refill Prov:MARGARITO VIVAR MD 03/04/18 Tiotropium [place]* (Spiriva*) 18 Mcg Cap.w.dev, 1 INH INH DAILY for 30 Days, #30 CAP 1 Refill Prov:MARGARITO VIVAR MD 03/04/18 Reported Medications Sennosides* (Senna Lax*) 8.6 Mg Tablet, 1 TAB PO BID, TAB 05/09/18 Temazepam* (Temazepam*) 30 Mg Capsule, 30 MG PO HS PRN for INSOMNIA, CAP 05/09/18 Levetiracetam* (Levetiracetam*) 500 Mg Tablet, 500 MG PO BID, TAB 05/09/18 Metoprolol Tartrate* (Lopressor*) 25 Mg Tab, 25 MG PO BID, #60 TAB 05/09/18 Hydrocodone/Acetaminophen ([place] 10-325 Tablet) 1 Each Tablet, 1 EACH PO TID, TAB 05/09/18 Levothyroxine Sodium* (Levothyroxine Sodium*) 200 Mcg Tablet, 200 MCG PO BEFORE BREAKFAST, #30 TAB 05/09/18 Discontinued Reported Medications Temazepam* (Temazepam*) 30 Mg Capsule, 30 MG PO HS PRN for INSOMNIA, CAP 01/27/18 Ranolazine* (Ranexa*) 500 Mg Tab.sr.12h, 500 MG PO Q12, TAB 01/27/18 Hydrocodone/Acetaminophen ([place] 10-325 Tablet) 1 Each Tablet, 1 EACH PO, TAB 08/14/17 Loperamide Hcl* (Loperamide Hcl*) 1 Mg/5 Ml Liquid, 2 MG PO PRN for DIARRHEA, ML MAX 16 mg/day 08/14/17 Biotin (Biotin) 5 Mg Tablet, 5 MG PO, TAB 08/14/17 Biotin (BIOTIN) 1 Mg Capsule, 1 MG PO, CAP 08/14/17 Amlodipine Besylate* (Norvasc*) 5 Mg Tablet, 5 MG PO DAILY, TAB 11/20/16 Isosorbide Mononitrate* (Isosorbide Mononitrate*) 30 Mg Tab.er.24h, 30 MG PO DAILY, TAB 11/20/16 Clopidogrel Bisulfate (Clopidogrel) 75 Mg Tablet, 75 MG PO DAILY, #30 TAB 11/20/16 Levothyroxine Sodium* (Levothyroxine Sodium*) 200 Mcg Tablet, 200 MCG PO BEFORE BREAKFAST, #30 TAB 11/20/16 Metoprolol Tartrate* (Lopressor*) 25 Mg Tablet, 25 MG PO BID, #60 TAB 09/26/15 Discontinued Scripts Albuterol Sulfate* (Proair HFA*) 8.5 Gm Hfa.aer.ad, 2 PUFF INH Q6H PRN for WHEEZING AND SOB, #1 INHALER Prov:MARCELLE LAU MD 11/20/16 Follow-up Plan patient to go to dialysis next scheduled appointment Primary Care Provider Tae Stephens MD Time spent on discharge: < 30 minutes TAE STEPHENS MD May 12, 2018 16:13
--- NOTE | 2018-05-12 21:32 | CONS ---
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 Pain is also worse with coughing. Pain improving. Serial cardiac enzymes are negative. -Patient had recent complex intervention of the RCA at [facility]. Records with bradycardia leading to cardiac arrest pre-procedure. -She does have a diminished ejection fraction on current echocardiogram on this admission which is new compared to August 2017. -Would continue dual antiplatelet therapy, continue beta-mariaelena, added JIMENEZ inhibitor for afterload reduction -Consider trial of anti-inflammatories for chest wall pain -Fluid management via hemodialysis as per nephrology Consultation Date/Type/Reason Admit Date/Time May 09, 2018 at 08:36 Initial Consult Date 05/10/18 Type of Consult Cardiology Requesting Provider: MARGARITO VIVAR MD Date/Time of Note DATE: 05/12/18 TIME: 21:30 24 HR Interval Summary Free Text/Dictation chest wall pain better, no sob Exam/Review of Systems Vital Signs Vitals Vital Signs Date Temp Pulse Resp B/P (MAP) Pulse Ox O2 O2 Flow FiO2 Time Delivery Rate 05/12/18 73 16:01 05/12/18 97.5 20 146/64 97 15:36 (91) 05/11/18 Room Air 12:39 05/09/18 21 07:32 Intake and Output 05/11/18 05/11/18 05/12/18 1414:59 22:59 06:59 IntakeIntake Total 150 ml OutputOutput Total 900 ml BalanceBalance -900 ml 150 ml Exam Constitutional: alert, oriented (nad) Head: normocephalic Respiratory: clear to auscultation, normal air movement Cardiovascular: regular rate and rhythm (s1s2) Gastrointestinal: soft, non-tender, bowel sounds Extremities: edema (trace) Labs Result Diagram: 05/10/1860005/10/18600 Heri Schaefer DO May 12, 2018 21:32
== END 2018-05-12 18:31 | disposition home or self-care (01) ==
LOC: E/R 04:24 → MS3 08:36 → EDBEDREQ 10:20 → TEL 15:55
PROVIDERS: ADMIT Internal Medicine; ATTEND Internal Medicine
DX: R07.9 Chest pain, unspecified (principal); I25.118 Atherosclerotic heart disease of native coronary artery with other forms of angina pectoris; I12.0 Hypertensive chronic kidney disease with stage 5 chronic kidney disease or end stage renal disease; E11.22 Type 2 diabetes mellitus with diabetic chronic kidney disease; N18.6 End stage renal disease; Z99.2 Dependence on renal dialysis; E78.5 Hyperlipidemia, unspecified; D63.1 Anemia in chronic kidney disease; M89.8X9 Other specified disorders of bone, unspecified site; Z85.850 Personal history of malignant neoplasm of thyroid; Z79.82 Long term (current) use of aspirin
CPT/HCPCS: 36415; 71045; 80053; 82550; 82553; 83036; 83690; 83880; 84484; 85025; 87340; 90935; 93005; 93306; 94664; 97162; 99285; G0378; J1644; J2270; J2405; J7030; Q4081; Q5105

== ENCOUNTER 2018-05-25 09:48 | Inpatient (IN) | payer MEDICARE, OTHER ==
[~2018-05-25] VITALS: Ht 170.2 cm; Wt 78.7 kg
[~2018-05-25 09:48] MED LIST changes: -ALBU8.5H8 INH; -AMLO5TAB4 PO; -BIOT1CAP3 PO; -BIOT5TAB PO; -CLOP75TA27 PO; -ISOS30TA67 PO; +LEVE500T8 PO; -LOPE1LIQ63 PO; +METO-448 PO; -METO25TA4 PO; -RANO500T2 PO; +SENN-120 PO
[2018-05-25] MEDS ORDERED: morphine 4 MG/ML VIAL IV STA (10:58)
[2018-05-25] MEDS ORDERED: ONDANSETRON 4 MG INJ IV STA ×2 (10:58→12:52)
--- NOTE | 2018-05-25 11:12 | ERD ---
ER Documentation Chief Complaint Chief Complaint bilateral leg swelling for the past 2 wks, no cp, sent by pmd for dialysis HPI This is a 53-year-old female who is on dialysis Friday and has not missed any treatments. She is sent in by her primary care Dr. Kinza Barcenas for admission due to volume overload in her lower extremities. She has a lot of swelling in her legs and feet causing a lot of pain. She spoke with him last on the phone and she was told to come to the ER today for admission to the hospital. No chest pain shortness of breath no fever. ROS All systems reviewed and are negative except as per history of present illness. Medications Home Meds Active Scripts Sevelamer Carbonate* (Renvela*) 800 Mg Tablet, 800 MG PO WITH MEALS for 30 Days, #90 TAB Prov:MARGARITO VIVAR MD 03/04/18 Aspirin (Aspirin) 81 Mg Chew, 81 MG PO DAILY for 30 Days, #30 TAB Prov:MARGARITO VIVAR MD 03/04/18 Atorvastatin* (Atorvastatin*) 80 Mg Tablet, 80 MG PO DAILY for 30 Days, #30 TAB 1 Refill Prov:MARGARITO VIVAR MD 03/04/18 Tiotropium [place]* (Spiriva*) 18 Mcg Cap.w.dev, 1 INH INH DAILY for 30 Days, #30 CAP 1 Refill Prov:MARGARITO VIVAR MD 03/04/18 Reported Medications Nitroglycerin* (Nitroglycerin* SL) 0.4 Mg Tab.subl, 0.4 MG SL Q5MIN PRN for CHEST PAIN, BOTTLE 05/25/18 Lisinopril* (Lisinopril*) 10 Mg Tablet, 10 MG PO DAILY, #30 TAB 05/25/18 Clopidogrel Bisulfate* (Clopidogrel Bisulfate*) 75 Mg Tablet, 75 MG PO DAILY, #3 0 TAB 05/25/18 Sennosides* (Senna Lax*) 8.6 Mg Tablet, 1 TAB PO BID, TAB 05/09/18 Temazepam* (Temazepam*) 30 Mg Capsule, 30 MG PO HS PRN for INSOMNIA, CAP 05/09/18 Levetiracetam* (Levetiracetam*) 500 Mg Tablet, 500 MG PO BID, TAB 05/09/18 Metoprolol Tartrate* (Lopressor*) 25 Mg Tab, 25 MG PO BID, #60 TAB 05/09/18 Hydrocodone/Acetaminophen ([place] 10-325 Tablet) 1 Each Tablet, 1 EACH PO NEED ED, TAB 05/09/18 Levothyroxine Sodium* (Levothyroxine Sodium*) 200 Mcg Tablet, 200 MCG PO BEFORE BREAKFAST, #30 TAB 05/09/18 Allergies Allergies: Coded Allergies: No Known Drug Allergies (Verified Allergy, Unknown, 05/25/18) PMhx/Soc History of Surgery: Yes (fistula placement) Anesthesia Reaction: No Hx Neurological Disorder: No Hx Respiratory Disorders: No Hx Cardiac Disorders: Yes (STENT) Hx Psychiatric Problems: No Hx Miscellaneous Medical Probl: Yes (ESRD on HD, DM 2 with peripheral neuropathy, HTN, hyperlipidemia, anemi) Hx Alcohol Use: No Hx Substance Use: No Hx Tobacco Use: No FmHx Family History: No coronary disease Physical Exam Vitals Vital Signs Date Temp Pulse Resp B/P (MAP) Pulse Ox O2 O2 Flow FiO2 Time Delivery Rate 05/25/18 Nasal 2 11:27 Cannula 05/25/18 98.5 96 20 207/100 98 09:52 (135) Physical Exam Const: Well-developed, well-nourished Head: Atraumatic, normocephalic Eyes: Normal Conjunctiva, PERRLA, EOMI, normal sclera, no nystagmus ENT: Normal External Ears, Nose and Mouth, moist mucus membranes. Neck: Full range of motion. No meningismus, no lymphadenopathy. Resp: Clear to auscultation bilaterally, no wheezing, rhonchi, rales Cardio: Regular rate and rhythm, no murmurs, S1 S2 present Abd: Soft, non tender x 4, non distended. Normal bowel sounds, no guarding or rebound, no pulsitile abdominal masses or bruits Skin: No petechiae or rashes, no ecchymosis , no maculopapular rash Back: No midline or flank tenderness Ext: No cyanosis, +3/4 edema, FROM x 4, normal inspection, neurovascularly intact x 4 Neur: Awake and alert, STR 5/5 x 4, sensation intact x 4, no focal findings, cerebellum intact Psych: Normal Mood and Affect Result Diagram: 05/25/18 1132 05/25/18 1132 Results 24 hrs Laboratory Tests Test 4/15/19 11:32 White Blood Count 4.9 10^3/ul Red Blood Count 4.01 10^6/ul Hemoglobin 11.3 g/dl Hematocrit 37.2 % Mean Corpuscular Volume 92.8 fl Mean Corpuscular Hemoglobin 28.2 pg Mean Corpuscular Hemoglobin Concent 30.4 g/dl Red Cell Distribution Width 20.1 % Platelet Count 62 10^3/UL Mean Platelet Volume 11.5 fl Immature Granulocytes % 0.200 % Neutrophils % 52.8 % Lymphocytes % 35.1 % Monocytes % 8.1 % Eosinophils % 3.2 % Basophils % 0.6 % Nucleated Red Blood Cells % 0.0 /100WBC Immature Granulocytes # 0.010 10^3/ul Neutrophils # 2.6 10^3/ul Lymphocytes # 1.7 10^3/ul Monocytes # 0.4 10^3/ul Eosinophils # 0.2 10^3/ul Basophils # 0.0 10^3/ul Nucleated Red Blood Cells # 0.0 10^3/ul Sodium Level 143 mmol/L Potassium Level 4.1 mmol/L Chloride Level 97 mmol/L Carbon Dioxide Level 27 mmol/L Anion Gap 19 Blood Urea Nitrogen 46 mg/dl Creatinine 7.91 mg/dl Est Glomerular Filtrat Rate mL/min 6 mL/min Glucose Level 172 mg/dl Calcium Level 8.9 mg/dl Total Bilirubin 0.3 mg/dl Direct Bilirubin 0.00 mg/dl Indirect Bilirubin 0.3 mg/dl Aspartate Amino Transf (AST/SGOT) 23 IU/L Alanine Aminotransferase (ALT/SGPT) 16 IU/L Alkaline Phosphatase 328 IU/L Total Protein 7.9 g/dl Albumin 4.3 g/dl Globulin 3.60 g/dl Albumin/Globulin Ratio 1.19 Current Medications Medications Dose Sig/Cheng Start Time Status Last (Trade) Ordered Route PRN Stop Time Admin Dose Reason Admin Morphine 4 mg ONCE STAT 05/25/18 DC 05/25/18 Sulfate IV 10:58 12:32 (morphine) 05/25/18 10:59 Ondansetron 4 mg ONCE STAT 05/25/18 DC 05/25/18 HCl (Zofran IV 10:58 12:32 Inj) 05/25/18 10:59 Lidocaine 5 ml ONCE ONCE 05/25/18 DC (Xylocaine SC 11:30 1% (Mpf)) 05/25/18 11:31 1 mg ONCE STAT 05/25/18 DC Hydromorphone IV 12:52 HCl 05/25/18 12:53 (Dilaudid) Ondansetron 4 mg ONCE STAT 05/25/18 DC HCl (Zofran IV 12:52 Inj) 05/25/18 12:53 Procedures/MDM Patient will be admitted to the hospital for volume overload she will need some extra dialysis to take off excess water in her legs. MR #: [id number] DOS: 05/25/18 1058 Ordering MD: ROSALINDA KEARNEY DO Location: E/R Room/Bed: PROCEDURE: XR Chest. CLINICAL INDICATION: Chest pain TECHNIQUE: Single frontal view of the chest was obtained COMPARISON: CR CHEST 07/18/2016; CR CHEST 09/26/2015; CR CHEST 12/05/2013 FINDINGS: Cardiomegaly with central vascular congestion. Atherosclerotic calcifications of the aortic arch. Small right pleural effusion with associated atelectasis/infiltrate. No pneumothorax. IMPRESSION: 1. Cardiomegaly with mild central vascular congestion. 2. Small right pleural effusion with atelectasis/infiltrate. RPTAT: QQ Physician Darian Date Time Electronically viewed and signed by richard Curtis Physician on 05/25/2018 11:18 rV/ CC: ROSALINDA KEARNEY DO [id number] Departure Diagnosis: Primary Impression: Volume overload Hypervolemia type: other Qualified Codes: E87.79 - Other fluid overload Additional Impression: Pedal edema Condition: Stable ROSALINDA KEARNEY DO May 25, 2018 11:12
[2018-05-25] MEDS ORDERED: LISI10TA2 PO (11:19)
[2018-05-25] MEDS ORDERED: CLOP75TA19 PO (11:19)
[2018-05-25] MEDS ORDERED: NITR0.4T32 SL (11:20)
[2018-05-25] MEDS ORDERED: LIDOCAINE 1% (MPF) 5 ML VIAL SC ONE (11:30)
[2018-05-25] MEDS ORDERED: HYDROmorphONE 1 MG/ML SYG IV STA (12:52)
[2018-05-25] MEDS ORDERED: ONDANSETRON 4 MG INJ IV PRN ×2 (13:30→20:30)
[2018-05-25] MEDS ORDERED: ACETAMINOPHEN 325 MG TAB PO PRN (13:30)
[2018-05-25] MEDS ORDERED: NITROGLYCERIN (SL) 0.4 MG TAB SL PRN (13:30)
[2018-05-25 14:20] VITALS: BP 121/63; PULSE 92; RESP 18
[2018-05-25 14:39] VITALS: Ht 170.2 cm; Wt 78.7 kg
[2018-05-25 15:44] VITALS: BP 125/59; PULSE 92; RESP 22
[2018-05-25 16:01] VITALS: PULSE 91
--- NOTE | 2018-05-25 16:11 | HP ---
DATE OF ADMISSION: 05/25/2018 CHIEF COMPLAINT: Volume overload, shortness of breath. HISTORY OF PRESENT ILLNESS: This is a 53-year-old female well known to me with a past medical histor y of end-stage renal disease on dialysis Friday, , Friday. Last hemodialysis was Friday . The patient has access of AV fistula. The patient also has history of diabetes, history of minera [place] bone disorder, history of hypertension, history of hypothyroidism, history of dyslipidemia, CHF, wh o presents to [facility] with worsening lower extremity edema. The patient states over the past several days and weeks during her hemodialysis, she has not had adequate ultrafiltratio n. The patient states that at times during dialysis, she has been hypotensive and has been receiving fluids. She describes having worsening lower extremity edema to the point of severe pain and descri bes shortness of breath. As a result, she came to the emergency room for evaluation. Upon arrival, the patient had laboratory data drawn, which showed a white count of 4.9, hemoglobin 9.3, sodium 143, BUN 46, creatinine 7.91. Chest x-ray was obtained which showed cardiomegaly with mild central vascu lar congestion and small right pleural effusion, atelectasis. In the emergency room, the patient was given pain medication and was admitted to telemetry for evaluation. Upon my evaluation of the patient at this time, she is stable. She is complaining of shortness of br eath. Denies any fevers, chills, nausea, vomiting. PAST MEDICAL HISTORY: History of end-stage renal disease, history of diabetes, history of hypertensi on, history of hypothyroidism, history of cardiomyopathy, history of valvular regurgitation, history of cardiac arrest. PAST SURGICAL HISTORY: Status post AV fistula placement, status post PCI, status post parathyroidect raj. FAMILY HISTORY: No family history of kidney disease. SOCIAL HISTORY: Does not drink, smoke, do drugs. MEDICATIONS: Have been reviewed. REVIEW OF SYSTEMS: A 14-point review of systems conducted. Pertinent positives stated in HPI, other brambila negative. PHYSICAL EXAMINATION: VITAL SIGNS: Blood pressure is 143/76, respiration is 18, temperature 98.6, heart rate 72. HEENT: Head is normocephalic. NECK: Supple. HEART: Regular rate. LUNGS: Show diminished breath sounds at base. ABDOMEN: Soft, nontender to palpation without rebound or guarding. EXTREMITIES: Negative for clubbing, cyanosis. Positive edema, +4. DERMATOLOGIC: No rashes. MUSCULOSKELETAL: No joint effusions. NEUROLOGIC: No focal deficits. LABORATORY DATA: Have been reviewed. IMAGING STUDIES: Have been reviewed. ASSESSMENT AND PLAN: This is a 53-year-old female who presents with: 1. End-stage renal disease. The patient is grossly volume overloaded. Plan for hemodialysis today. We will dialyze for 3-1/2 hours of 3k bath, calcium 2.5, ultrafiltrate as tolerated. Anticipate di alysis tomorrow. 2. Volume overload. Etiology is secondary to end-stage renal disease. Plan is for ultrafiltration hemodialysis with goal 2 to 3 liters for today and tomorrow. We will monitor closely. 3. Anemia. The patient's hemoglobin levels are ____. No need for Epogen. 4. Mineral bone disorder. The patient is status post parathyroidectomy. Continue to monitor calciu m levels. The patient has been receiving outpatient ____. 5. Cardiomyopathy with ejection fraction of 35%. Continue medical management. 6. History of coronary artery disease, status post PCI to RCA. Continue medical management. Contin ue antiplatelet therapy. 7. Hypertension. Continue current blood pressure regimen. 8. History of valvular regurgitation. Continue to monitor. 9. Seizure disorder. Continue medical management. 10. Diabetes. Continue current treatment plan. 11. History of papillary thyroid carcinoma. Continue to monitor. Consider endocrinology evaluation . Please note, I spent an additional 30 minutes in [id number] time with the patient, discussing advan olga directives and code status. The patient is full code. Dictated By: HARVEY BAIN/DANA Conf#: [id number] DID#: [id number]
[2018-05-25] MEDS: SEVELAMER CARBONATE 0.8 GM PKT PO SCH (18:00)
[2018-05-25 20:04] VITALS: PULSE 84
[2018-05-25] MEDS ORDERED: HYDROCODONE/APAP (10/325) TAB PO PRN (20:30)
[2018-05-25] MEDS: METOPROLOL 25 MG TAB PO SCH (21:00)
[2018-05-25] MEDS: SENNA TAB PO SCH (21:03)
[2018-05-25] MEDS: FAMOTIDINE 20 MG TAB NGT SCH (21:03)
[2018-05-25] MEDS: LEVETIRACETAM 500 MG TAB PO SCH (21:03)
[2018-05-25] MEDS: HEPARIN 5,000 UNIT/1 ML VIAL SC SCH (21:14)
[2018-05-26] VITALS (29 sets, daily range): BP systolic 87–148; BP diastolic 52–83; PULSE 64–90; RESP 18–20
[2018-05-26] MEDS ORDERED: ALBUMIN HUMAN 25% 100 ML IV PRN (01:00)
[2018-05-26] MEDS ORDERED: NALOXONE (0.4 MG/ML) INJ IV ONE ×2 (02:30→03:00)
[2018-05-26] MEDS: LEVOTHYROXINE 100 MCG TAB PO SCH (07:00)
[2018-05-26] MEDS: TIOTROPIUM 18 MCG CAPSULE INHA DEV INH SCH (08:48)
[2018-05-26] MEDS: SEVELAMER CARBONATE 0.8 GM PKT PO SCH ×3 (08:51→17:19)
[2018-05-26] MEDS: CLOPIDOGREL 75 MG TAB PO SCH (08:52)
[2018-05-26] MEDS: LEVETIRACETAM 500 MG TAB PO SCH ×2 (08:52→20:07)
[2018-05-26] MEDS: ATORVASTATIN 80 MG TAB PO SCH (08:52)
[2018-05-26] MEDS: SENNA TAB PO SCH ×2 (08:52→20:07)
[2018-05-26] MEDS: ASPIRIN 81 MG TAB PO SCH (08:52)
[2018-05-26] MEDS: HEPARIN 5,000 UNIT/1 ML VIAL SC SCH ×2 (08:59→20:17)
[2018-05-26] MEDS: LISINOPRIL 10 MG TAB PO SCH (09:00)
[2018-05-26] MEDS: METOPROLOL 25 MG TAB PO SCH ×2 (09:00→21:00)
--- NOTE | 2018-05-26 14:49 | PN ---
DATE: 05/26/2018 SUBJECTIVE: Overnight, the patient was noted to be confused. The patient was given a dose of Narcan with improvement in mental status. No other events noted. No hemoptysis, hematemesis, hematochezia . OBJECTIVE: VITAL SIGNS: Blood pressure is 131/61, respiratory rate 20, pulse 79, temperature 98.7. HEENT: Head is normocephalic. NECK: Supple. HEART: Regular rate. LUNGS: Show diminished breath sounds at the base. ABDOMEN: Soft, nontender to palpation without rebound or guarding. EXTREMITIES: Negative for clubbing, cyanosis. The patient does have positive edema. No significant change. DERMATOLOGIC: No rashes. MUSCULOSKELETAL: No joint effusion. NEUROLOGIC: No change in exam. MEDICATIONS: Have been reviewed. LABORATORY DATA: Have been reviewed. IMAGING STUDIES: Extremity venous ultrasound is negative for any DVT. ASSESSMENT AND PLAN: 1. End-stage renal disease. The patient is markedly volume overloaded, tolerating hemodialysis yest erday. Plan for dialysis again today and anticipate dialysis again tomorrow. 2. Volume overload. Continue ultrafiltration dialysis. 3. Anemia. Monitor hemoglobin and hematocrit levels. No need for Epogen. 4. Mineral bone disorder. The patient is status post parathyroidectomy. Continue to monitor calciu m levels. Continue phosphate binders. 5. Acute encephalopathy. Etiology is likely secondary to opiates. The patient's mental status is i mproved status post Narcan. Continue to monitor. We will defer any opiates at this time. 6. Cardiomyopathy with ejection fraction of 35%. Continue medical management. Continue ultrafiltra tion dialysis. 7. Coronary artery disease, status post PCI to RCA. Continue medical management. Continue aspirin, Plavix, statin therapy. Continue beta mariaelena. Continue JIMENEZ inhibitor. 8. Hypertension. Blood pressure is controlled. Continue current blood pressure regimen. 9. History of valvular disease. Continue to monitor. 10. Seizure disorder. Continue Keppra. 11. Diabetes. Continue current insulin regimen. 12. History of papillary thyroid carcinoma. Continue to monitor. Consider endocrinology evaluation . Dictated By: HARVEY LUCIO DO NR/NTS Conf#: [id number] DID#: [id number]
--- NOTE | 2018-05-26 15:25 | CONS ---
Assessment/Plan Assessment/Plan Hospital Course (Demo Recall) Shortness of breath and edema, likely volume overload secondary to insufficient hemodialysis Cardia myopathy with left ventricular ejection fraction 35% Mitral and tricuspid valve regurgitation CAD status post PCI to [place] of RCA End-stage renal disease on hemodialysis -Patient with shortness of breath and lower extremity edema likely secondary to volume overload and insufficient hemodialysis. Symptoms have improved after hemodialysis last night. -Fluid management as per renal -Continue dual antiplatelet therapy given recent PCI, statin therapy -Continue beta-mariaelena and afterload reducing agent as blood pressure tolerates Consultation Date/Type/Reason Admit Date/Time May 25, 2018 at 13:02 Type of Consult Cardiology Reason for Consultation Shortness of breath Date/Time of Note DATE: 05/26/18 TIME: 15:19 Hx of Present Illness This is a 53-year-old female with past medical history of CAD status post PCI, end-stage renal disease on hemodialysis, hypertension who presents with progressive worsening lower extremity edema and shortness of breath. It appears patient has not received full hemodialysis sessions because of fluctuations in blood pressure. She denies any chest pain, palpitations. She did have hemodialysis yesterday and is feeling better. She is also having cramping in her lower extremities which has been occurring since increased lower extremity edema. 12 point review of systems was performed with all pertinent positives and negatives mentioned above and all else is negative Past Medical History Medical History: congestive heart failure, coronary artery disease, high cholesterol, hypertension Home Meds Active Scripts Sevelamer Carbonate* (Renvela*) 800 Mg Tablet, 800 MG PO WITH MEALS for 30 Days, #90 TAB Prov:MARGARITO VIVAR MD 03/04/18 Aspirin (Aspirin) 81 Mg Chew, 81 MG PO DAILY for 30 Days, #30 TAB Prov:MARGARITO VIVAR MD 03/04/18 Atorvastatin* (Atorvastatin*) 80 Mg Tablet, 80 MG PO DAILY for 30 Days, #30 TAB 1 Refill Prov:MARGARITO VIVAR MD 03/04/18 Tiotropium [place]* (Spiriva*) 18 Mcg Cap.w.dev, 1 INH INH DAILY for 30 Days, #30 CAP 1 Refill Prov:MARGARITO VIVAR MD 03/04/18 Reported Medications Nitroglycerin* (Nitroglycerin* SL) 0.4 Mg Tab.subl, 0.4 MG SL Q5MIN PRN for CHEST PAIN, BOTTLE 05/25/18 Lisinopril* (Lisinopril*) 10 Mg Tablet, 10 MG PO DAILY, #30 TAB 05/25/18 Clopidogrel Bisulfate* (Clopidogrel Bisulfate*) 75 Mg Tablet, 75 MG PO DAILY, #30 TAB 05/25/18 Sennosides* (Senna Lax*) 8.6 Mg Tablet, 1 TAB PO BID, TAB 05/09/18 Temazepam* (Temazepam*) 30 Mg Capsule, 30 MG PO HS PRN for INSOMNIA, CAP 05/09/18 Levetiracetam* (Levetiracetam*) 500 Mg Tablet, 500 MG PO BID, TAB 05/09/18 Metoprolol Tartrate* (Lopressor*) 25 Mg Tab, 25 MG PO BID, #60 TAB 05/09/18 Hydrocodone/Acetaminophen ([place] 10-325 Tablet) 1 Each Tablet, 1 EACH PO NEEDED, TAB 05/09/18 Levothyroxine Sodium* (Levothyroxine Sodium*) 200 Mcg Tablet, 200 MCG PO BEFORE BREAKFAST, #30 TAB 05/09/18 Medications Current Medications Aspirin (Aspirin) 81 mg DAILY PO Last administered on 05/26/18at 08:52; Admin Dose 81 MG; Start 05/26/18 at 09:00 Atorvastatin Calcium (Lipitor) 80 mg DAILY PO Last administered on 05/26/18at 08:52; Admin Dose 80 MG; Start 05/26/18 at 09:00 Clopidogrel Bisulfate (plaVIX) 75 mg DAILY PO Last administered on 05/26/18at 08:52; Admin Dose 75 MG; Start 05/26/18 at 09:00 Levetiracetam (Keppra) 500 mg BID PO Last administered on 05/26/18at 08:52; Admin Dose 500 MG; Start 05/25/18 at 21:00 Levothyroxine Sodium (Synthroid) 200 mcg BEFORE BREAKFAST PO Last administered on 05/26/18at 07:00; Admin Dose 200 MCG; Start 05/26/18 at 07:00 Lisinopril (Zestril) 10 mg DAILY PO ; Start 05/26/18 at 09:00 Metoprolol Tartrate (Lopressor) 25 mg BID PO ; Start 05/25/18 at 21:00 Nitroglycerin (Nitroglycerin (Sl Tab) 0.4 Mg) 1 tab [id number] PRN SL CHEST PAIN; Start 05/25/18 at 13:30 Senna (Senokot) 1 tab BID PO Last administered on 05/26/18 08:52; Admin Dose 1 TAB; Start 05/25/18 at 21:00 Sevelamer Carbonate (Renvela) 0.8 gm WITH MEALS PO Last administered on 05/26/18 12:25; Admin Dose 0.8 GM; Start 05/25/18 at 18:00 Tiotropium [place] (Spiriva) 1 inh DAILY INH Last administered on 05/26/18 08:48; Admin Dose 1 INH; Start 05/26/18 at 09:00 Heparin Sodium (Porcine) (Heparin (5000 Units/1ml)) 5,000 unit BID SC Last administered on 05/26/18 08:59; Admin Dose 5,000 UNIT; Start 05/25/18 at 21:00 Famotidine (Pepcid) 20 mg HS NGT Last administered on 05/25/18 21:03; Admin Dose 20 MG; Start 05/25/18 at 21:00 Ondansetron HCl (Zofran Inj) 4 mg Q6H PRN IV NAUSEA AND/OR VOMITING Last administered on 05/25/18 20:45; Admin Dose 4 MG; Start 05/25/18 at 20:30 Albumin Human 100 ml @ 100 mls/hr WITH DIALYSIS PRN IV SBP <90 DURING DIALYSIS Last administered on 05/26/18 03:18; Admin Dose 100 MLS/HR; Start 05/26/18 at 01:00 Allergies: Coded Allergies: No Known Drug Allergies (Verified Allergy, Unknown, 05/25/18) Past Surgical History Past Surgical Hx: angioplasty, other Family History Significant Family History: no pertinent family hx Social History Smoking Status: Never smoker Exam/Review of Systems Vital Signs Vitals Vital Signs Date Temp Pulse Resp B/P (MAP) Pulse Ox O2 O2 Flow FiO2 Time Delivery Rate 05/26/18 98.6 86 18 125/83 94 Nasal 15:13 (97) Cannula 05/26/18 3.0 01:02 Intake and Output 05/25/18 05/25/18 05/26/18 1414:59 22:59 06:59 IntakeIntake Total 0 ml 300 ml OutputOutput Total 3100 ml BalanceBalance 0 ml -2800 ml Exam Constitutional: alert, oriented (No apparent distress) Head: normocephalic Respiratory: other (Coarse breath sounds bilaterally, no wheezing) Cardiovascular: regular rate and rhythm (S1-S2 heard) Gastrointestinal: soft, non-tender, bowel sounds Extremities: edema Labs Result Diagram: 05/26/18 1343 05/26/18 1344 Results 24hrs Laboratory Tests Test 05/26/18 01:55 05/26/18 13:43 05/26/18 13:44 Bedside Glucose 115 White Blood Count 4.0 L Red Blood Count 3.80 L Hemoglobin 10.6 L Hematocrit 34.9 L Mean Corpuscular Volume 91.8 Mean Corpuscular Hemoglobin 27.9 L Mean Corpuscular Hemoglobin Concent 30.4 L Red Cell Distribution Width 20.4 H Platelet Count 38 #L Mean Platelet Volume 12.4 H Immature Granulocytes % 0.300 Neutrophils % 49.6 Lymphocytes % 38.3 Monocytes % 8.5 Eosinophils % 2.5 Basophils % 0.8 Nucleated Red Blood Cells % 0.0 Immature Granulocytes # 0.010 Neutrophils # 2.0 Lymphocytes # 1.5 Monocytes # 0.3 Eosinophils # 0.1 Basophils # 0.0 Nucleated Red Blood Cells # 0.0 Sodium Level 140 Potassium Level 4.7 Chloride Level 100 Carbon Dioxide Level 25 Anion Gap 15 H Blood Urea Nitrogen 45 H Creatinine 8.34 H Est Glomerular Filtrat Rate mL/min 6 L Glucose Level 143 Calcium Level 8.8 Phosphorus Level 6.5 H Magnesium Level 2.1 Medications Medications Current Medications Aspirin (Aspirin) 81 mg DAILY PO Last administered on 05/26/18at 08:52; Admin Dose 81 MG; Start 05/26/18 at 09:00 Atorvastatin Calcium (Lipitor) 80 mg DAILY PO Last administered on 05/26/18at 08:52; Admin Dose 80 MG; Start 05/26/18 at 09:00 Clopidogrel Bisulfate (plaVIX) 75 mg DAILY PO Last administered on 05/26/18at 08:52; Admin Dose 75 MG; Start 05/26/18 at 09:00 Levetiracetam (Keppra) 500 mg BID PO Last administered on 05/26/18at 08:52; Admin Dose 500 MG; Start 05/25/18 at 21:00 Levothyroxine Sodium (Synthroid) 200 mcg BEFORE BREAKFAST PO Last administered on 05/26/18 07:00; Admin Dose 200 MCG; Start 05/26/18 at 07:00 Lisinopril (Zestril) 10 mg DAILY PO ; Start 05/26/18 at 09:00 Metoprolol Tartrate (Lopressor) 25 mg BID PO ; Start 05/25/18 at 21:00 Nitroglycerin (Nitroglycerin (Sl Tab) 0.4 Mg) 1 tab [id number] PRN SL CHEST PAIN; Start 05/25/18 at 13:30 Senna (Senokot) 1 tab BID PO Last administered on 05/26/18 08:52; Admin Dose 1 TAB; Start 05/25/18 at 21:00 Sevelamer Carbonate (Renvela) 0.8 gm WITH MEALS PO Last administered on 05/26/18 12:25; Admin Dose 0.8 GM; Start 05/25/18 at 18:00 Tiotropium [place] (Spiriva) 1 inh DAILY INH Last administered on 05/26/18 08:48; Admin Dose 1 INH; Start 05/26/18 at 09:00 Heparin Sodium (Porcine) (Heparin (5000 Units/1ml)) 5,000 unit BID SC Last a dministered on 05/26/18 08:59; Admin Dose 5,000 UNIT; Start 05/25/18 at 21:00 Famotidine (Pepcid) 20 mg HS NGT Last administered on 05/25/18 21:03; Admin Dose 20 MG; Start 05/25/18 at 21:00 Ondansetron HCl (Zofran Inj) 4 mg Q6H PRN IV NAUSEA AND/OR VOMITING Last administered on 05/25/18 20:45; Admin Dose 4 MG; Start 05/25/18 at 20:30 Albumin Human 100 ml @ 100 mls/hr WITH DIALYSIS PRN IV SBP <90 DURING DIALYSIS Last administered on 05/26/18 03:18; Admin Dose 100 MLS/HR; Start 05/26/18 at 01:00 Heri Schaefer DO May 26, 2018 15:25
[2018-05-26] MEDS: FAMOTIDINE 20 MG TAB NGT SCH (20:07)
[2018-05-26] MEDS ORDERED: DIPHENHYDRAMINE 50 MG INJ IV PRN (21:00)
[2018-05-26] MEDS: DIPHENHYDRAMINE 50 MG CAP PO PRN (21:41)
[2018-05-27] VITALS (28 sets, daily range): BP systolic 122–181; BP diastolic 58–93; PULSE 81–95; RESP 16–20
[2018-05-27] MEDS: SEVELAMER CARBONATE 0.8 GM PKT PO SCH ×3 (07:34→17:52)
[2018-05-27] MEDS: LEVOTHYROXINE 100 MCG TAB PO SCH (07:34)
[2018-05-27] MEDS: LISINOPRIL 10 MG TAB PO SCH (09:00)
[2018-05-27] MEDS: HEPARIN 5,000 UNIT/1 ML VIAL SC SCH ×2 (09:00→21:36)
[2018-05-27] MEDS: SENNA TAB PO SCH ×2 (09:00→20:49)
[2018-05-27] MEDS ORDERED: EPOETIN ALFA-EPBX (ESRD) 10,000 UNIT/ML VIAL SC ONE (09:00)
[2018-05-27] MEDS: METOPROLOL 25 MG TAB PO SCH ×2 (09:00→20:50)
--- NOTE | 2018-05-27 10:01 | PN ---
DATE: 05/27/2018 SUBJECTIVE: The patient is complaining about lower extremity pain, improving. The patient scheduled for hemodialysis today. Dialysis was not done yesterday. OBJECTIVE: VITAL SIGNS: Blood pressure is 170/86, respirations 16, pulse 83, temperature 97.6. HEENT: Head is normocephalic. NECK: Supple. HEART: Regular rate. LUNGS: Show diminished breath sounds at the base. ABDOMEN: Soft, nontender to palpation without rebound or guarding. EXTREMITIES: Negative for clubbing, cyanosis. Positive edema. DERMATOLOGIC: No rashes. MUSCULOSKELETAL: No joint effusion. NEUROLOGIC: No change in exam. MEDICATIONS: Reviewed. LABORATORY DATA: Reviewed. ASSESSMENT AND PLAN: 1. End-stage renal disease. The patient remains volume overloaded. Anticipate daily dialysis for s olute clearance and volume removal. 2. Volume overload. Continue ultrafiltration with dialysis. 3. Anemia. Continue to monitor hemoglobin and hematocrit levels. We will give Epogen as needed. 4. Mineral bone disorder, monitor calcium and phosphorus levels. Continue phosphate binders. 5. Acute encephalopathy. Etiology was likely due to opiates. The patient's mental status is improv ed. Continue to monitor. 6. Cardiomyopathy with ejection fraction of 35%. Continue medical management. Continue ultrafiltra tion with dialysis. 7. Coronary artery disease with a history of percutaneous coronary intervention to right coronary ar nadir. Continue medical management. Appreciate cardiology's help with management. 8. Hypertension. Continue current blood pressure regimen. Continue ultrafiltration with dialysis. 9. History of valvular disease. 10. Seizure disorder. Continue Keppra. 11. Diabetes. Continue current insulin regimen. 12. History of papillary thyroid cancer. Dictated By: HARVEY LUCIO DO NR/NTS Conf#: [id number] DID#: [id number] CC: HARVEY LUCIO DO;*EndCC*
--- NOTE | 2018-05-27 12:27 | CONS ---
Assessment/Plan Assessment/Plan Hospital Course (Demo Recall) Shortness of breath and edema, likely volume overload secondary to insufficient hemodialysis Cardia myopathy with left ventricular ejection fraction 35% Mitral and tricuspid valve regurgitation CAD status post PCI to PRINT MANAGER of RCA End-stage renal disease on hemodialysis -Patient with shortness of breath and lower extremity edema likely secondary to volume overload and insufficient hemodialysis. Symptoms progressively been improving after hemodialysis. -Blood pressure on the higher side the patient not receive medications today because of hemodialysis -Fluid management as per renal -Continue dual antiplatelet therapy given recent PCI, statin therapy -Continue beta-mariaelena and afterload reducing agent as blood pressure tolerates Consultation Date/Type/Reason Admit Date/Time May 25, 2018 at 13:02 Initial Consult Date Type of Consult Cardiology Date/Time of Note DATE: 05/27/18 TIME: 12:24 24 HR Interval Summary Free Text/Dictation Overall feeling better, lower extremity pain is much improved. Denies shortness of breath Exam/Review of Systems Vital Signs Vitals Vital Signs Date Temp Pulse Resp B/P (MAP) Pulse Ox O2 O2 Flow FiO2 Time Delivery Rate 05/27/18 98.2 90 20 148/72 96 Room Air 11:59 (97) 05/26/18 3.0 01:02 Intake and Output 05/26/18 05/26/18 05/27/18 1515:00 23:00 07:00 IntakeIntake Total 680 ml BalanceBalance 680 ml Exam Constitutional: alert, oriented (No apparent distress, undergoing hemodialysis) Head: normocephalic Respiratory: other (Coarse breath sounds bilaterally, no wheezing) Cardiovascular: regular rate and rhythm (S1-S2 heard) Gastrointestinal: soft, non-tender, bowel sounds Extremities: edema Labs Result Diagram: 05/27/18 0551 05/27/18 0551 Results 24hrs Laboratory Tests Test 05/26/18 13:43 05/26/18 13:44 05/27/18 05:51 White Blood Count 4.0 L 4.2 L Red Blood Count 3.80 L 3.73 L Hemoglobin 10.6 L 10.7 L Hematocrit 34.9 L 34.8 L Mean Corpuscular Volume 91.8 93.3 Mean Corpuscular Hemoglobin 27.9 L 28.7 L Mean Corpuscular Hemoglobin Concent 30.4 L 30.7 L Red Cell Distribution Width 20.4 H 20.3 H Platelet Count 38 #L 48 #L Mean Platelet Volume 12.4 H 11.9 H Immature Granulocytes % 0.300 0.200 Neutrophils % 49.6 39.6 Lymphocytes % 38.3 46.3 Monocytes % 8.5 8.6 Eosinophils % 2.5 4.1 Basophils % 0.8 1.2 Nucleated Red Blood Cells % 0.0 0.0 Immature Granulocytes # 0.010 0.010 Neutrophils # 2.0 1.7 Lymphocytes # 1.5 1.9 Monocytes # 0.3 0.4 Eosinophils # 0.1 0.2 Basophils # 0.0 0.1 Nucleated Red Blood Cells # 0.0 0.0 Sodium Level 140 141 Potassium Level 4.7 4.9 Chloride Level 100 98 Carbon Dioxide Level 25 24 Anion Gap 15 H 19 H Blood Urea Nitrogen 45 H 52 H Creatinine 8.34 H 8.73 H Est Glomerular Filtrat Rate mL/min 6 L 6 L Glucose Level 143 105 Calcium Level 8.8 8.8 Phosphorus Level 6.5 H 7.1 H Magnesium Level 2.1 2.2 Medications Medications Current Medications Aspirin (Aspirin) 81 mg DAILY PO Last administered on 05/26/18 08:52; Admin Dose 81 MG; Start 05/26/18 at 09:00 Atorvastatin Calcium (Lipitor) 80 mg DAILY PO Last administered on 05/26/18 08:52; Admin Dose 80 MG; Start 05/26/18 at 09:00 Clopidogrel Bisulfate (plaVIX) 75 mg DAILY PO Last administered on 05/26/18 08:52; Admin Dose 75 MG; Start 05/26/18 at 09:00 Levetiracetam (Keppra) 500 mg BID PO Last administered on 05/26/18at 20:07; Admin Dose 500 MG; Start 05/25/18 at 21:00 Levothyroxine Sodium (Synthroid) 200 mcg BEFORE BREAKFAST PO Last administered on 05/27/18 07:34; Admin Dose 200 MCG; Start 05/26/18 at 07:00 Lisinopril (Zestril) 10 mg DAILY PO ; Start 05/26/18 at 09:00 Metoprolol Tartrate (Lopressor) 25 mg BID PO ; Start 05/25/18 at 21:00 Nitroglycerin (Nitroglycerin (Sl Tab) 0.4 Mg) 1 tab [id number] PRN SL CHEST PAIN; Start 05/25/18 at 13:30 Senna (Senokot) 1 tab BID PO Last administered on 05/26/18 20:07; Admin Dose 1 TAB; Start 05/25/18 at 21:00 Sevelamer Carbonate (Renvela) 0.8 gm WITH MEALS PO Last administered on 05/27/18 07:34; Admin Dose 0.8 GM; Start 05/25/18 at 18:00 Tiotropium [place] (Spiriva) 1 inh DAILY INH Last administered on 05/26/18 08:48; Admin Dose 1 INH; Start 05/26/18 at 09:00 Heparin Sodium (Porcine) (Heparin (5000 Units/1ml)) 5,000 unit BID SC Last administered on 05/26/18 20:17; Admin Dose 5,000 UNIT; Start 05/25/18 at 21:00 Famotidine (Pepcid) 20 mg HS NGT Last administered on 05/26/18 20:07; Admin Dose 20 MG; Start 05/25/18 at 21:00 Ondansetron HCl (Zofran Inj) 4 mg Q6H PRN IV NAUSEA AND/OR VOMITING Last administered on 05/25/18 20:45; Admin Dose 4 MG; Start 05/25/18 at 20:30 Albumin Human 100 ml @ 100 mls/hr WITH DIALYSIS PRN IV SBP <90 DURING DIALYSIS Last administered on 05/26/18 03:18; Admin Dose 100 MLS/HR; Start 05/26/18 at 01:00 Diphenhydramine HCl (Benadryl) 50 mg Q6H PRN PO ITCHING; Start 05/26/18 at 21:00 Diphenhydramine HCl (Benadryl) 50 mg Q6H PRN IV ITCHING; Start 05/26/18 at 21:00 Heri Schaefer DO May 27, 2018 12:27
[2018-05-27] MEDS: TIOTROPIUM 18 MCG CAPSULE INHA DEV INH SCH (12:31)
[2018-05-27] MEDS: ATORVASTATIN 80 MG TAB PO SCH (12:40)
[2018-05-27] MEDS: ASPIRIN 81 MG TAB PO SCH (12:40)
[2018-05-27] MEDS: CLOPIDOGREL 75 MG TAB PO SCH (12:40)
[2018-05-27] MEDS: LEVETIRACETAM 500 MG TAB PO SCH ×2 (12:41→20:49)
[2018-05-27] MEDS: DIPHENHYDRAMINE 50 MG CAP PO PRN (14:07)
[2018-05-27] MEDS: FAMOTIDINE 20 MG TAB NGT SCH (20:49)
[2018-05-28] VITALS (23 sets, daily range): BP systolic 113–183; BP diastolic 33–98; PULSE 66–84; RESP 18
[2018-05-28] MEDS: LEVOTHYROXINE 100 MCG TAB PO SCH (06:50)
[2018-05-28] MEDS: SEVELAMER CARBONATE 0.8 GM PKT PO SCH ×3 (08:16→17:16)
[2018-05-28] MEDS: LEVETIRACETAM 500 MG TAB PO SCH (08:16)
[2018-05-28] MEDS: SENNA TAB PO SCH (08:16)
[2018-05-28] MEDS: CLOPIDOGREL 75 MG TAB PO SCH (08:16)
[2018-05-28] MEDS: ATORVASTATIN 80 MG TAB PO SCH (08:16)
[2018-05-28] MEDS: ASPIRIN 81 MG TAB PO SCH (08:16)
[2018-05-28] MEDS: LISINOPRIL 10 MG TAB PO SCH ×2 (08:17→11:31)
[2018-05-28] MEDS: METOPROLOL 25 MG TAB PO SCH ×2 (08:17→11:32)
[2018-05-28] MEDS: HEPARIN 5,000 UNIT/1 ML VIAL SC SCH (08:22)
[2018-05-28] MEDS: TIOTROPIUM 18 MCG CAPSULE INHA DEV INH SCH (09:18)
--- NOTE | 2018-05-28 10:02 | DS ---
DATE OF ADMISSION: 05/27/2018 DATE OF DISCHARGE: 05/28/2018 HOSPITAL COURSE: This is a 53-year-old female with a past medical history of end-stage renal disease on dialysis Friday, , Friday, with access AV fistula, history of diabetes, mineral bone d isorder, hypertension, hypothyroidism, dyslipidemia, congestive heart failure, who presented to [facility] with worsening lower extremity edema. The patient stated that during the t several sessions of hemodialysis she was unable to get adequate ultrafiltration. As a result, she started developing shortness of breath, lower extremity edema and pain. As a result, she came to [facility], and subsequently admitted. During the hospital course, the patient has be en receiving aggressive hemodialysis. The patient's edema and shortness of breath have subsequently improved. During the hospital, the patient had one episode of confusion related to opiate since reso lved. The patient is also being followed by cabinet maker, Dr. Schaefer during the hospital course. patient's other medical problems including cardiomyopathy, coronary artery disease, hypertension, s eizure disorder, mineral bone disorder and anemia have been stable during the hospital course. Currdylan ntly, at this point, the patient will be discharged after hemodialysis today. We will follow up with primary care physician, primary pharmaceutical compounding supervisor and will follow up with outpatient hemodialysis at [facility]. At the time of discharge, the patient is stable, in no acute distress. FINAL DIAGNOSES: 1. End-stage renal disease. 2. Volume overload, resolving. 3. Acute respiratory failure, resolving. 4. Anemia. 5. Mineral bone disorder. 6. Cardiomyopathy. 7. Coronary artery disease. 8. Hypertension. 9. Acute encephalopathy, resolved. 10. History of valvular regurgitation. 11. Seizure disorder. 12. Diabetes. 13. History of papillary thyroid carcinoma being followed by outpatient endocrinology. CONDITION ON DISCHARGE: At the time of discharge, the patient is stable, in no acute distress. FINAL MEDICATIONS: Please see reconciliation list. Please note I spent over 30 minutes of time preparing the patient's discharge. Dictated By: HARVEY LUCIO DO NR/NTS Conf#: [id number] DID#: [id number] CC: HARVEY LUCIO DO;*EndCC*
[2018-05-28] MEDS: DIPHENHYDRAMINE 50 MG CAP PO PRN (10:38)
--- NOTE | 2018-05-28 16:31 | CONS ---
Assessment/Plan Assessment/Plan Hospital Course (Demo Recall) Shortness of breath and edema, likely volume overload secondary to insufficient hemodialysis Cardia myopathy with left ventricular ejection fraction 35% Mitral and tricuspid valve regurgitation CAD status post PCI to CUTTER [employer] of RCA End-stage renal disease on hemodialysis -Patient with shortness of breath and lower extremity edema likely secondary to volume overload and insufficient hemodialysis. Symptoms progressively been improving after hemodialysis. -Fluid management as per renal -Continue dual antiplatelet therapy given recent PCI, statin therapy -Continue beta-mariaelena and afterload reducing agent as blood pressure tolerates -DC planning Consultation Date/Type/Reason Admit Date/Time May 27, 2018 at 14:09 Initial Consult Date Type of Consult Cardiology Date/Time of Note DATE: 05/28/18 TIME: 16:31 24 HR Interval Summary Free Text/Dictation Overall feeling better. Denies chest pain, shortness of breath. Leg discomfort has resolved Exam/Review of Systems Vital Signs Vitals Vital Signs Date Temp Pulse Resp B/P (MAP) Pulse Ox O2 O2 Flow FiO2 Time Delivery Rate 05/28/18 83 16:12 05/28/18 98.0 18 130/60 96 15:24 (83) 05/28/18 Room Air 14:20 05/26/18 3.0 01:02 Intake and Output 05/27/18 05/27/18 05/28/18 1515:00 23:00 07:00 IntakeIntake Total 300 ml 200 ml OutputOutput Total 2600 ml BalanceBalance -2600 ml 300 ml 200 ml Exam Constitutional: alert, oriented (No apparent distress) Head: normocephalic Respiratory: other (Coarse breath sounds bilaterally, no wheezing) Cardiovascular: regular rate and rhythm (S1-S2 heard) Gastrointestinal: soft, non-tender, bowel sounds Extremities: edema Labs Result Diagram: 05/27/18 0551 05/27/18 0551 Medications Medications Current Medications Aspirin (Aspirin) 81 mg DAILY PO Last administered on 05/28/18at 08:16; Admin Dose 81 MG; Start 05/26/18 at 09:00 Atorvastatin Calcium (Lipitor) 80 mg DAILY PO Last administered on 05/28/18at 08:16; Admin Dose 80 MG; Start 05/26/18 at 09:00 Clopidogrel Bisulfate (plaVIX) 75 mg DAILY PO Last administered on 05/28/18at 0 8:16; Admin Dose 75 MG; Start 05/26/18 at 09:00 Levetiracetam (Keppra) 500 mg BID PO Last administered on 05/28/18 08:16; Admin Dose 500 MG; Start 05/25/18 at 21:00 Levothyroxine Sodium (Synthroid) 200 mcg BEFORE BREAKFAST PO Last administered on 05/28/18 06:50; Admin Dose 200 MCG; Start 05/26/18 at 07:00 Lisinopril (Zestril) 10 mg DAILY PO Last administered on 05/28/18 11:31; Admin Dose 10 MG; Start 05/26/18 at 09:00 Metoprolol Tartrate (Lopressor) 25 mg BID PO Last administered on 05/28/18 11:32; Admin Dose 25 MG; Start 05/25/18 at 21:00 Nitroglycerin (Nitroglycerin (Sl Tab) 0.4 Mg) 1 tab [id number] PRN SL CHEST PAIN; Start 05/25/18 at 13:30 Senna (Senokot) 1 tab BID PO Last administered on 05/28/18 08:16; Admin Dose 1 TAB; Start 05/25/18 at 21:00 Sevelamer Carbonate (Renvela) 0.8 gm WITH MEALS PO Last administered on 05/28/18 11:48; Admin Dose 0.8 GM; Start 05/25/18 at 18:00 Tiotropium [place] (Spiriva) 1 inh DAILY INH Last administered on 05/28/18 09:18; Admin Dose 1 INH; Start 05/26/18 at 09:00 Heparin Sodium (Porcine) (Heparin (5000 Units/1ml)) 5,000 unit BID SC Last administered on 05/28/18 08:22; Admin Dose 5,000 UNIT; Start 05/25/18 at 21:00 Famotidine (Pepcid) 20 mg HS NGT Last administered on 05/27/18 20:49; Admin Dose 20 MG; Start 05/25/18 at 21:00 Ondansetron HCl (Zofran Inj) 4 mg Q6H PRN IV NAUSEA AND/OR VOMITING Last administered on 05/25/18 20:45; Admin Dose 4 MG; Start 05/25/18 at 20:30 Albumin Human 100 ml @ 100 mls/hr WITH DIALYSIS PRN IV SBP <90 DURING DIALYSIS Last administered on 05/26/18at 03:18; Admin Dose 100 MLS/HR; Start 05/26/18 at 01:00 Diphenhydramine HCl (Benadryl) 50 mg Q6H PRN PO ITCHING Last administered on 05/28/18at 10:38; Admin Dose 50 MG; Start 05/26/18 at 21:00 Diphenhydramine HCl (Benadryl) 50 mg Q6H PRN IV ITCHING; Start 05/26/18 at 21:00 Heri Schaefer DO May 28, 2018 16:31
== END 2018-05-28 18:35 | disposition home or self-care (01) | DRG 698 ==
LOC: E/R 09:48 → 6WM 13:02 → EDBEDREQ 13:10 → EDBEDREQSVC 13:11 → OBSVTOIN 05-27 14:09
PROVIDERS: ADMIT Internal Medicine; ATTEND Internal Medicine
PROC: 5A1D70Z Performance of Urinary Filtration, Intermittent, Less than 6 Hours Per Day (ICD-10-PCS; principal; 2018-05-26)
DX: E11.22 Type 2 diabetes mellitus with diabetic chronic kidney disease (principal); J96.00 Acute respiratory failure, unspecified whether with hypoxia or hypercapnia; G92 Toxic encephalopathy; I13.2 Hypertensive heart and chronic kidney disease with heart failure and with stage 5 chronic kidney disease, or end stage renal disease; G93.40 Encephalopathy, unspecified; I42.9 Cardiomyopathy, unspecified; N18.6 End stage renal disease; E87.79 Other fluid overload; D64.9 Anemia, unspecified; E83.89 Other disorders of mineral metabolism; I25.10 Atherosclerotic heart disease of native coronary artery without angina pectoris; Z98.61 Coronary angioplasty status; G40.909 Epilepsy, unspecified, not intractable, without status epilepticus; Z85.850 Personal history of malignant neoplasm of thyroid; I08.1 Rheumatic disorders of both mitral and tricuspid valves; I50.9 Heart failure, unspecified; E03.9 Hypothyroidism, unspecified; E78.5 Hyperlipidemia, unspecified; Z86.74 Personal history of sudden cardiac arrest; T40.605A Adverse effect of unspecified narcotics, initial encounter
CPT/HCPCS: 71045; 80048; 80053; 82962; 83735; 84100; 85025; 87340; 90935; 93970; 96374; 96375; G0378; J1170; J1644; J2270; J2310; J2405; P9047; Q5105

== ENCOUNTER 2018-06-06 06:44 | Inpatient (IN) | payer MEDICARE, OTHER ==
[~2018-06-06] VITALS: Ht 165.1 cm; Wt 75.2 kg
[2018-06-06] VITALS (18 sets, daily range): BP systolic 106–185; BP diastolic 56–101; PULSE 84–96; RESP 18–43; Ht 165.1 cm; Wt 75.2 kg
[~2018-06-06 06:44] MED LIST changes: +CLOP75TA19 PO; +LISI10TA2 PO; +NITR0.4T32 SL
--- NOTE | 2018-06-06 06:59 | ERD ---
ER Documentation Chief Complaint Chief Complaint bib ra 39 eval of fainting episode at dialysis center. HPI This is a 54-year-old woman brought in by EMS from dialysis center prior to her completing dialysis for altered mental status. Nurses at the facility found her minimally responsive and began chest compressions although there was no documented loss of pulses, upon EMS arrival at the scene they discontinued chest compressions and palpated normal pulses and transported here somewhat agitated with altered mental status. She does have a history of seizure disorder. HPI was limited ROS All systems reviewed and are negative except as per history of present illness. Medications Home Meds Active Scripts Sevelamer Carbonate* (Renvela*) 800 Mg Tablet, 800 MG PO WITH MEALS for 30 Days, #90 TAB Prov:MARGARITO VIVAR MD 03/04/18 Aspirin (Aspirin) 81 Mg Chew, 81 MG PO DAILY for 30 Days, #30 TAB Prov:MARGARITO VIVAR MD 03/04/18 Atorvastatin* (Atorvastatin*) 80 Mg Tablet, 80 MG PO DAILY for 30 Days, #30 TAB 1 Refill Prov:MARGARITO VIVAR MD 03/04/18 Tiotropium [place]* (Spiriva*) 18 Mcg Cap.w.dev, 1 INH INH DAILY for 30 Days, #30 CAP 1 Refill Prov:MARGARITO VIVAR MD 03/04/18 Reported Medications Nitroglycerin* (Nitroglycerin* SL) 0.4 Mg Tab.subl, 0.4 MG SL Q5MIN PRN for CHEST PAIN, BOTTLE 05/25/18 Lisinopril* (Lisinopril*) 10 Mg Tablet, 10 MG PO DAILY, #30 TAB 05/25/18 Clopidogrel Bisulfate* (Clopidogrel Bisulfate*) 75 Mg Tablet, 75 MG PO DAILY, #30 TAB 05/25/18 Sennosides* (Senna Lax*) 8.6 Mg Tablet, 1 TAB PO BID, TAB 05/09/18 Temazepam* (Temazepam*) 30 Mg Capsule, 30 MG PO HS PRN for INSOMNIA, CAP 05/09/18 Levetiracetam* (Levetiracetam*) 500 Mg Tablet, 500 MG PO BID, TAB 05/09/18 Metoprolol Tartrate* (Lopressor*) 25 Mg Tab, 25 MG PO BID, #60 TAB 05/09/18 Hydrocodone/Acetaminophen ([place] 10-325 Tablet) 1 Each Tablet, 1 EACH PO NEEDED, TAB 05/09/18 Levothyroxine Sodium* (Levothyroxine Sodium*) 200 Mcg Tablet, 200 MCG PO BEFORE BREAKFAST, #30 TAB 05/09/18 Allergies Allergies: Coded Allergies: No Known Drug Allergies (Verified Allergy, Unknown, 06/06/18) PMhx/Soc History of hypertension, end-stage kidney disease hemodialysis Friday, , Saturdays, CAD status post PCI, anemia, cardiomyopathy with LVEF of 35%, hypertension, seizure disorder, diabetes mellitus, papillary thyroid carcinoma History of Surgery: Yes (Thyroid, AV Fistula Placement ) Anesthesia Reaction: No Hx Neurological Disorder: No Hx Respiratory Disorders: No Hx Cardiac Disorders: Yes (Stents, HTN, Hyperlipid) Hx Psychiatric Problems: No Hx Miscellaneous Medical Probl: No Hx Alcohol Use: No Hx Substance Use: No Hx Tobacco Use: No Physical Exam Vitals Vital Signs Date Temp Pulse Resp B/P (MAP) Pulse Ox O2 O2 Flow FiO2 Time Delivery Rate 06/06/18 94 18 173/68 100 Mechanical 10:00 (103) Ventilator 06/06/18 50 09:57 06/06/18 98.1 99 16 136/73 100 09:00 (94) 06/06/18 98.1 99 16 136/73 100 Mechanical 09:00 (94) Ventilator 06/06/18 84 33 100 100 07:50 06/06/18 120 24 179/99 100 Mask 10.0 07:15 (125) 06/06/18 96.5 122 16 186/111 99 06:52 (136) Physical Exam GENERAL: Well-developed, afebrile, agitated HEENT: Moist mucous membranes, pink conjunctiva, no cervical spine tenderness or step-off deformities, no goiter, no jaundice or icterus, extraocular movements intact without pain. No submandibular induration, and no pharyngeal erythema NEURO: Appears confused, agitated, moving all extremities, pupils equal round reactive to light, no focal deficits CARDIAC: Tachycardic and regular LUNGS: Poor breath sounds bilaterally, dense crackles, no stridor SKIN: Warm and dry to touch, no abrasions, contusions, or hematomas, no lacerations, no ecchymosis, no target lesions, and without ulcers Result Diagram: 06/06/18 0718 06/06/18 0718 Results 24 hrs Laboratory Tests Test 06/06/18 06:57 06/06/18 06:59 06/06/18 07:18 06/06/18 08:22 Bedside Glucose 165 mg/dL POC Venous 3.6 mmol/L Lactate White Blood 6.2 10^3/ul Count Red Blood Count 3.56 10^6/ul Hemoglobin 11.0 g/dl Hematocrit 34.7 % Mean Corpuscular 97.5 fl Volume Mean Corpuscular 30.9 pg Hemoglobin Mean Corpuscular 31.7 g/dl Hemoglobin Nuha nt Red Cell 21.9 % Distribution Width Platelet Count 45 10^3/UL Mean Platelet 11.8 fl Volume Immature 0.600 % Granulocytes % Neutrophils % 41.5 % Lymphocytes % 46.5 % Monocytes % 8.1 % Eosinophils % 2.7 % Basophils % 0.6 % Nucleated Red 0.0 /100WBC Blood Cells % Immature 0.040 10^3/ul Granulocytes # Neutrophils # 2.6 10^3/ul Lymphocytes # 2.9 10^3/ul Monocytes # 0.5 10^3/ul Eosinophils # 0.2 10^3/ul Basophils # 0.0 10^3/ul Nucleated Red 0.0 10^3/ul Blood Cells # Prothrombin Time 15.2 Sec Prothrombin Time 1.2 Ratio INR 1.19 International Normalized Ratio Activated 30.6 Sec Partial Thrombop last Time Sodium Level 143 mmol/L Potassium Level 3.9 mmol/L Chloride Level 97 mmol/L Carbon Dioxide 30 mmol/L Level Anion Gap 16 Blood Urea 22 mg/dl Nitrogen Creatinine 4.16 mg/dl Est Glomerular 14 mL/min Filtrat Rate mL/min Glucose Level 160 mg/dl Calcium Level 8.9 mg/dl Total Bilirubin 0.6 mg/dl Direct Bilirubin 0.00 mg/dl Indirect 0.6 mg/dl Bilirubin Aspartate Amino 67 IU/L Transf (AST/SGOT ) Alanine 33 IU/L Aminotransferase (ALT/SGPT) Alkaline 376 IU/L Phosphatase Troponin I < 0.012 ng/ml Total Protein 7.6 g/dl Albumin 4.2 g/dl Globulin 3.40 g/dl Albumin/Globulin 1.23 Ratio Lipase 182 U/L Blood Gas Blood arterial Specimen Source Arterial Blood 06/06/2018 8:49:4 Date Drawn 8 AM Arterial Blood 7.409 pH (Temp corrected) Arterial Blood 45.9 mmhg pCO2 (Temp correct) Arterial Blood 357.8 mmHG pO2 (Temp corrected) Arterial Blood 28.4 mmol/L HCO3 Arterial Blood 3.2 mmol/L Base Excess Arterial Blood 99.7 mmHG Oxygen Saturatio n Raul Test ACCEPTAB Arterial Blood Left Radial Gas Puncture Site Arterial 0.5 % Blood Carboxyhem oglobin Arterial Blood 0.3 % Methemoglobin Blood Gas A-a O2 309.3 mmHg Differential Oxyhemoglobin 98.9 % Percent Blood Gas 37.0 C Temperature Blood Gas 18.0 Respiration Rate Blood Gas Actual 33 Respiration Rate Blood Gas VENT - AC Modality FiO2 100.0 % Blood Gas Tidal 500.0 mL Volume Blood Gas Low 5.0 cmH2O PEEP Setting Blood Gas 24.0 Inspiratory Pressure Blood Gas JASON RT Notified Whom Blood Gas 06/06/2018 9:13:1 Notified Time 7 AM Current Medications Medications Dose Sig/Cheng Start Time Status Last (Trade) Ordered Route PRN Stop Time Admin Dose Reason Admin Lorazepam 2 mg ONCE ONCE 06/06/18 DC 06/06/18 (Ativan) IV 07:00 07:15 06/06/18 07:01 Propofol 100 ml @ ONCE STAT 06/06/18 06/06/18 2.1 mls/hr IV 08:22 09:04 06/08/18 07:59 Propofol 100 ml @ ud STK-MED 06/06/18 DC ONCE .ROUTE 08:25 06/06/18 08:26 Ondansetron 4 mg ONCE STAT 06/06/18 DC 06/06/18 HCl (Zofran IV 08:52 09:04 Inj) 06/06/18 08:54 100 ml @ ONCE ONCE 06/06/18 DC 06/06/18 Levetiracetam 400 mls/hr IVPB 09:30 10:06 06/06/18 09:44 Albuterol 10 mg ONCE STAT 06/06/18 DC 06/06/18 (Proventil INH 09:03 09:24 0.5% (Neb)) 06/06/18 09:08 Albuterol/ 3 ml Q2H RESP 06/06/18 UNV Ipratropium THERAPY PRN 10:30 (Duoneb) NEB SHORTNESS OF BREATH 650 mg Q4H PRN 06/06/18 UNV Acetaminophen MS PAIN 10:30 (Tylenol LEVEL 1-3 OR Supp) FEVER Famotidine 20 mg Q12 IV 06/06/18 UNV (Pepcid Iv) 21:00 Heparin 5,000 unit Q12 SC 06/06/18 UNV Sodium 21:00 (Porcine) (Heparin (5000 Units/1ml)) Aspirin 81 mg DAILY PO 06/07/18 UNV (Aspirin) 09:00 80 mg DAILY PO 06/07/18 UNV Atorvastatin 09:00 Calcium (Lipitor) Clopidogrel 75 mg DAILY PO 06/07/18 UNV Bisulfate 09:00 (plaVIX) 1 tab Q6 PRN PO 06/06/18 UNV Acetaminophen PAIN LEVEL 10:30 / 1-5 Hydrocodone Bitart ([place] (10/325)) 500 mg BID PO 06/06/18 UNV Levetiracetam 21:00 (Keppra) 200 mcg BEFORE 06/07/18 UNV Levothyroxine BREAKFAST 07:00 Sodium PO (Synthroid) Lisinopril 10 mg DAILY PO 06/07/18 UNV (Zestril) 09:00 Metoprolol 25 mg BID PO 06/06/18 UNV Tartrate 21:00 (Lopressor) 1 tab [id number] 06/06/18 UNV Nitroglycerin PRN SL 10:30 CHEST PAIN (Nitroglyceri n (Sl Tab) 0.4 Mg) Senna 1 tab BID PO 06/06/18 UNV (Senokot) 21:00 Sevelamer 0.8 gm WITH MEALS 06/06/18 UNV Carbonate PO 12:00 (Renvela) Tiotropium 1 inh DAILY INH 06/07/18 UNV [place] 09:00 (Spiriva) 30 mg HS PRN PO 06/06/18 UNV Miscellaneous INSOMNIA 10:30 Information Procedures/MDM IV line was established patient was placed on monitoring and evaluation advisor rhythm strip revealed a sinus tachycardia at 120 bpm with upright P and T waves. Patient was afebrile EKG performed, read by me revealed a sinus tachycardia 122 bpm, normal axis, right ventricular conduction delay QRS duration 102 ms, first-degree AV block, diffuse inferior and lateral T wave inversions CT scan of the head was performed it was negative for acute bleed mass or shift. 1 view chest x-ray performed, read by me revealed cardiomegaly and dense pulmonary edema, no acute infiltrates, no pneumothorax. Patient was agitated upon presentation and intracranial hemorrhage was a concern, she had to be sedated with lorazepam [address] scanning. I also ordered Zofran 4 mg IV and Keppra 1 g IV Patient was also given albuterol 10 mg via nebulizer CBC was normal, electrolytes revealed a BUN/creatinine of 22/4.2, liver function tests normal, troponin negative ABG performed, pH 7.41, PCO2 46, PaO2 almost 400. Normal. Endotracheal Intubation by me: Pre assessment performed. See preceding note for details. Pre-oxygenation performed with 100% oxygen RSI: Performed w/o complication or hypoxic events. Medications as ordered. Blade: 7.5 ET Tube: 7.5 cm Depth: 22 cm at the lip Intubation confirmed by colorimetric CO2, equal breath sounds, quiet over the stomach. Chest X-ray 1V Interpreted by me: 3 cm above the poppy ET tube. Normal soft tissue, No pneumothorax. Bilateral pulmonary edema Critical Care: Time: 50 minutes, this was time separate from other billable procedures. Treatments/Evaluations: Close monitoring and treatment of unstable vital signs, cardiorespiratory, and neurologic status, while maintaining tight balance of fluid, respiratory, and cardiac interventions. Patient will require hemodialysis and I spoke to the admitting physician and her director auto. Patient admitted to the intensive care unit. Departure Diagnosis: Primary Impression: Acute respiratory failure Respiratory failure complication: hypoxia and hypercapnia Qualified Codes: J96.01 - Acute respiratory failure with hypoxia; J96.02 - Acute respiratory failure with hypercapnia Additional Impressions: Acute encephalopathy End stage kidney disease Post-ictal state Volume overload Hypervolemia type: unspecified Qualified Codes: E87.70 - Fluid overload, unspecified Condition: Critical MARCELLE LAU MD Jun 06, 2018 06:59
[2018-06-06] MEDS ORDERED: LORAZEPAM 2 MG INJ IV ONE (07:00)
[2018-06-06] MEDS ORDERED: PROPOFOL 100 ML IV STA ×2 (08:22→13:16)
[2018-06-06] MEDS ORDERED: PROPOFOL 100 ML ONE (08:25)
[2018-06-06] MEDS ORDERED: ONDANSETRON 4 MG INJ IV STA (08:52)
[2018-06-06] MEDS ORDERED: ALBUTEROL 0.5% (NEB) 2.5 MG/0.5 ML AMP INH STA (09:03)
[2018-06-06] MEDS ORDERED: LEVETIRACETAM 1000 MG (PMX) 100 ML IVPB ONE (09:30)
[2018-06-06] MEDS ORDERED: NITROGLYCERIN (SL) 0.4 MG TAB SL PRN (10:30)
[2018-06-06] MEDS ORDERED: ACETAMINOPHEN 650 MG SUPP PR PRN (10:30)
[2018-06-06] MEDS ORDERED: ALBUTEROL/IPRATROPIUM (NEB) 3 ML AMP NEB PRN (10:30)
--- NOTE | 2018-06-06 10:35 | HP ---
Date/Time of Note Date/Time of Note DATE: 06/06/18 TIME: Assessment/Plan VTE Prophylaxis SCD applied (from Nsg): Yes Pharmacological prophylaxis: heparin Lines/Catheters IV Catheter Type (from Nrsg): Saline Lock Assessment/Plan Problems: (1) Acute respiratory failure Status: Acute Comment: Intubated in the emergency room. I will have pulmonary assist. I do not think we will be able to get her off the ventilator until we can have nephrology dialyze off some of the excess fluid. Because of the known history of coronary disease requiring angioplasties and I am not sure that she had her second necessary angioplasty will go through formalized cardiac evaluation as well. 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 transplanted heart: [place] heart Qualified Codes: I25.10 - Atherosclerotic heart disease of [place] coronary artery without angina pectoris (6) Essential (primary) hypertension Status: Chronic Comment: Continue standard treatment (7) Hyperlipidemia Status: Chronic Comment: Continue full dose statin therapy Qualifiers: Hyperlipidemia type: pure hypercholesterolemia Qualified Codes: E78.00 - Pure hypercholesterolemia, unspecified (8) Hepatic steatosis Status: Chronic Comment: Noted. (9) Abnormal liver function tests Status: Acute Comment: Noted. (10) Secondary hyperparathyroidism of renal origin Status: Chronic Comment: Noted. Continue treatment as outlined by nephrology (11) Papillary thyroid carcinoma Onset Date: ~ 02/2013 Status: Chronic Comment: This is really no incidentaloma not a significant pathologic finding therefore it should be viewed as in remission Result Diagram: 06/06/18 0718 06/06/18 0718 Results 24hrs Laboratory Tests Test 06/06/18 06:57 06/06/18 06:59 06/06/18 07:18 06/06/18 08:22 Bedside Glucose 165 POC Venous 3.6 *H Lactate White Blood Count 6.2 # Red Blood Count 3.56 L Hemoglobin 11.0 L Hematocrit 34.7 L Mean Corpuscular 97.5 Volume Mean Corpuscular 30.9 Hemoglobin Mean Corpuscular 31.7 L Hemoglobin Concen t Red Cell 21.9 H Distribution Width Platelet Count 45 L Mean Platelet 11.8 H Volume Immature 0.600 H Granulocytes % Neutrophils % 41.5 Lymphocytes % 46.5 Monocytes % 8.1 Eosinophils % 2.7 Basophils % 0.6 Nucleated Red 0.0 Blood Cells % Immature 0.040 H Granulocytes # Neutrophils # 2.6 Lymphocytes # 2.9 Monocytes # 0.5 Eosinophils # 0.2 Basophils # 0.0 Nucleated Red 0.0 Blood Cells # Prothrombin Time 15.2 H Prothrombin Time 1.2 Ratio INR International 1.19 Normalized Ratio Activated 30.6 Partial Thrombopl ast Time Sodium Level 143 Potassium Level 3.9 Chloride Level 97 Carbon Dioxide 30 Level Anion Gap 16 H Blood Urea 22 H Nitrogen Creatinine 4.16 H Est Glomerular 14 L Filtrat Rate mL/min Glucose Level 160 Calcium Level 8.9 Total Bilirubin 0.6 Direct Bilirubin 0.00 Indirect 0.6 Bilirubin Aspartate Amino 67 H Transf (AST/SGOT) Alanine 33 Aminotransferase (ALT/SGPT) Alkaline 376 H Phosphatase Troponin I < 0.012 Total Protein 7.6 Albumin 4.2 Globulin 3.40 H Albumin/Globulin 1.23 Ratio Lipase 182 Blood Gas Blood arterial Specimen Source Arterial Blood 06/06/2018 8:49:4 Date Drawn 8 AM Arterial Blood pH 7.409 (Temp corrected) Arterial Blood 45.9 H pCO2 (Temp correct) Arterial Blood 357.8 H pO2 (Temp corrected) Arterial Blood 28.4 H HCO3 Arterial Blood 3.2 H Base Excess Arterial Blood 99.7 H Oxygen Saturation Raul Test ACCEPTAB Arterial Blood Left Radial Gas Puncture Site Arterial 0.5 Blood Carboxyhemo globin Arterial Blood 0.3 Methemoglobin Blood Gas A-a O2 309.3 H Differential Oxyhemoglobin 98.9 Percent Blood Gas 37.0 Temperature Blood Gas 18.0 Respiration Rate Blood Gas Actual 33 Respiration Rate Blood Gas VENT - AC Modality FiO2 100.0 Blood Gas Tidal 500.0 Volume Blood Gas Low 5.0 PEEP Setting Blood Gas 24.0 Inspiratory Pressure Blood Gas JASON RT Notified Whom Blood Gas 06/06/2018 9:13:1 Notified Time 7 AM HPI/ROS Admit Date/Time Admit Date/Time June 06, 2018 Hx of Present Illness 53-year-old -[place] female sent over from her dialysis unit. She had been receiving dialysis when she became short of breath. They were actually concerned enough that they started CPR but that was stopped when paramedics arrived and advised him that that might not be necessary at that moment. She was transferred here still with significant volume overload requiring intubation but not CPR. She is now being admitted to the ICU as she is on the ventilator with significant volume overload. ROS Presently on propofol drip Subjective hx not possible: pt non-verbal PMH/Family/Social Past Medical History Medical History: cancer (Papillary carcinoma thyroid with 3 microfoci at the time of surgery i.e. in remission i.e. incidentaloma), coronary artery disease, diabetes (Type II with complications), GERD (Hiatal hernia with gastroesophageal reflux disease), high cholesterol, hypertension, renal disease (Stage renal disease on CHD 3 times weekly; secondary hyperparathyroidism of renal origin), other (Hepatic steatosis with abnormal liver chemistries; Major depressive disorder; seizure disorder; osteoarthritis;) Medications Current Medications Propofol 100 ml @ 2.1 mls/hr ONCE STAT IV Last administered on 06/06/18at 09:04; Admin Dose 2.1 MLS/HR; Start 06/06/18 at 08:22; Stop 06/08/18 at 07:59 Coded Allergies: No Known Drug Allergies (Verified Allergy, Unknown, 06/06/18) Past Surgical History Past Surgical Hx: angioplasty, other (Status post near total thyroidectomy; status post times 2; status post right shoulder arthroscopy; status post parathyroidectomy; status post AV fistula; cataract extraction) Family History Significant Family History: no pertinent family hx, diabetes, hypertension Social History Alcohol Use: none Smoking Status: Unknown if ever smoked Drug Use: none Exam/Review of Systems Vital Signs Vitals Vital Signs Date Temp Pulse Resp B/P (MAP) Pulse Ox O2 O2 Flow FiO2 Time Delivery Rate 06/06/18 94 18 173/68 100 Mechanical 10:00 (103) Ventilator 06/06/18 50 09:57 06/06/18 98.1 09:00 06/06/18 10.0 07:15 Exam Exam Sedated and on propofol on ventilator Constitutional: non-verbal Head: normocephalic, atraumatic Eyes: nl conjunctiva, nl lids, nl sclera ENMT: intubated Neck: supple, non-tender Respiratory: normal air movement, crackles/rales (Basilar crackles) Cardiovascular: regular rate and rhythm, nl pulses Gastrointestinal: soft, nl liver, spleen, non-tender Musculoskeletal: nl extremities to inspection, nl gait and stance Skin: nl MARGARITO Morales MD Jun 06, 2018 10:29
[2018-06-06] MEDS: FAMOTIDINE 20 MG INJ IV SCH (11:30)
[2018-06-06] MEDS: SEVELAMER CARBONATE 0.8 GM PKT PO SCH ×2 (11:31→18:38)
[2018-06-06] MEDS: ACCU-CHEK XX SCH ×3 (12:49→21:42)
--- NOTE | 2018-06-06 15:09 | CONS ---
Assessment/Plan Assessment/Plan Assessment/Plan (Daily) IMP: 1. Respiratory Failure 2/2 pulmonary edema/volume overload, possibly worsened by HTN crisis. Will evaluate for cardiac ischemia, however likely needs more UF 2. ESRD on HD 3. Volume Overload 4. HTN Heart Disease 5. CHF 6. Hypothyroid 7. Seizure d/o RECS: 1. Vent support 2. Needs HD/UF 3. BP control 4. Am ABG/CXR 5. Serial troponin 6. DVT/GI prophylaxis Consultation Date/Type/Reason Admit Date/Time June 06, 2018 Date of Consultation: Jun 06, 2018 Type of Consult Pulm/CCM Date/Time of Note DATE: 06/06/18 TIME: 15:03 Hx of Present Illness Briefly, this is a 53-year-old female with a past medical history of end-stage renal disease on dialysis Friday, , Friday, with access AV fistula, diabetes, hypertension, hypothyroidism, dyslipidemia, congestive heart failure, seizure d/o who was transferred from SNF after worsening respiratory insufficiency 2/2 volume overload requiring intubation. Subjective hx not possible: pt non-verbal Past Medical History Medical History: cancer (Papillary carcinoma thyroid with 3 microfoci at the time of surgery i.e. in remission i.e. incidentaloma), coronary artery disease, diabetes (Type II with complications), GERD (Hiatal hernia with gastroesophageal reflux disease), high cholesterol, hypertension, renal disease (Stage renal disease on CHD 3 times weekly; secondary hyperparathyroidism of renal origin), other (Hepatic steatosis with abnormal liver chemistries; Major depressive disorder; seizure disorder; osteoarthritis;) Home Meds Active Scripts Sevelamer Carbonate* (Renvela*) 800 Mg Tablet, 800 MG PO WITH MEALS for 30 Days, #90 TAB Prov:MARGARITO VIVAR MD 03/04/18 Aspirin (Aspirin) 81 Mg Chew, 81 MG PO DAILY for 30 Days, #30 TAB Prov:MARGARITO VIVAR MD 03/04/18 Atorvastatin* (Atorvastatin*) 80 Mg Tablet, 80 MG PO DAILY for 30 Days, #30 TAB 1 Refill Prov:MARGARITO VIVAR MD 03/04/18 Tiotropium [place]* (Spiriva*) 18 Mcg Cap.w.dev, 1 INH INH DAILY for 30 Days, #30 CAP 1 Refill Prov:MARGARITO VIVAR MD 03/04/18 Reported Medications Nitroglycerin* (Nitroglycerin* SL) 0.4 Mg Tab.subl, 0.4 MG SL Q5MIN PRN for CHEST PAIN, BOTTLE 05/25/18 Lisinopril* (Lisinopril*) 10 Mg Tablet, 10 MG PO DAILY, #30 TAB 05/25/18 Clopidogrel Bisulfate* (Clopidogrel Bisulfate*) 75 Mg Tablet, 75 MG PO DAILY, #30 TAB 05/25/18 Sennosides* (Senna Lax*) 8.6 Mg Tablet, 1 TAB PO BID, TAB 05/09/18 Temazepam* (Temazepam*) 30 Mg Capsule, 30 MG PO HS PRN for INSOMNIA, CAP 05/09/18 Levetiracetam* (Levetiracetam*) 500 Mg Tablet, 500 MG PO BID, TAB 05/09/18 Metoprolol Tartrate* (Lopressor*) 25 Mg Tab, 25 MG PO BID, #60 TAB 05/09/18 Hydrocodone/Acetaminophen (Klemme 10-325 Tablet) 1 Each Tablet, 1 EACH PO NEEDED, TAB 05/09/18 Levothyroxine Sodium* (Levothyroxine Sodium*) 200 Mcg Tablet, 200 MCG PO BEFORE BREAKFAST, #30 TAB 05/09/18 Medications Current Medications Propofol 100 ml @ 2.1 mls/hr ONCE STAT IV Last administered on 06/06/18at 09:04; Admin Dose 2.1 MLS/HR; Start 06/06/18 at 08:22; Stop 06/08/18 at 07:59 Albuterol/ Ipratropium (Duoneb) 3 ml Q2H RESP THERAPY PRN NEB SHORTNESS OF BREATH; Start 06/06/18 at 10:30 Acetaminophen (Tylenol Supp) 650 mg Q4H PRN MD PAIN LEVEL 1-3 OR FEVER; Start 06/06/18 at 10:30 Famotidine (Pepcid Iv) 20 mg DAILY IV Last administered on 06/06/18at 11:30; Admin Dose 20 MG; Start 06/06/18 at 11:00 Heparin Sodium (Porcine) (Heparin (5000 Units/1ml)) 5,000 unit Q12 SC ; Start 06/06/18 at 21:00 Aspirin (Aspirin) 81 mg DAILY PO ; Start 06/07/18 at 09:00 Atorvastatin Calcium (Lipitor) 80 mg DAILY PO ; Start 06/07/18 at 09:00 Clopidogrel Bisulfate (plaVIX) 75 mg DAILY PO ; Start 06/07/18 at 09:00 Acetaminophen/ Hydrocodone Bitart (Klemme (10/325)) 1 tab Q6 PRN PO PAIN LEVEL 1-5; Start 06/06/18 at 10:30 Levetiracetam (Keppra) 500 mg BID PO ; Start 06/06/18 at 21:00 Levothyroxine Sodium (Synthroid) 200 mcg BEFORE BREAKFAST PO ; Start 06/07/18 at 07:00 Lisinopril (Zestril) 10 mg DAILY PO ; Start 06/07/18 at 09:00 Metoprolol Tartrate (Lopressor) 25 mg BID PO ; Start 06/06/18 at 21:00 Nitroglycerin (Nitroglycerin (Sl Tab) 0.4 Mg) 1 tab [id number] PRN SL CHEST PAIN; Start 06/06/18 at 10:30 Senna (Senokot) 1 tab BID PO ; Start 06/06/18 at 21:00 Sevelamer Carbonate (Renvela) 0.8 gm WITH MEALS PO ; Start 06/06/18 at 12:00 Tiotropium [place] (Spiriva) 1 inh DAILY INH ; Start 06/07/18 at 09:00 Zolpidem Tartrate (Ambien) 5 mg HS PRN PO INSOMNIA; Start 06/06/18 at 21:00 Diagnostic Test (Pha) (Accu-Chek) 1 ea Q4 XX Last administered on 06/06/18at 12:49; Admin Dose 1 EA; Start 06/06/18 at 13:00 Propofol 100 ml @ 2.1 mls/hr ONCE STAT IV Last administered on 06/06/18at 14:20; Admin Dose 35 MLS/HR; Start 06/06/18 at 13:16; Stop 06/08/18 at 12:53 Allergies: Coded Allergies: No Known Drug Allergies (Verified Allergy, Unknown, 06/06/18) Past Surgical History Past Surgical Hx: angioplasty, other (Status post near total thyroidectomy; s tatus post times 2; status post right shoulder arthroscopy; status post parathyroidectomy; status post AV fistula; cataract extraction) Social History Alcohol Use: none Smoking Status: Unknown if ever smoked Drug Use: none Exam/Review of Systems Exam Vitals Vital Signs Date Temp Pulse Resp B/P (MAP) Pulse Ox O2 O2 Flow FiO2 Time Delivery Rate 06/06/18 98.0 89 18 167/66 100 Mechanical 10.0 14:00 (99) Ventilator 06/06/18 50 11:54 Constitutional: non-verbal Head: normocephalic, atraumatic Eyes: nl conjunctiva, EOMI, nl lids ENMT: nl external ears & nose, intubated Neck: supple, non-tender, jvd Respiratory: crackles/rales Cardiovascular: regular rate and rhythm, jugular venous distention (JVD), systolic murmur Gastrointestinal: soft, nl liver, spleen, non-tender Extremities: normal pulses, edema Neurological: DTR's symmetric, lethargic Results Result Diagram: 06/06/18 0718 06/06/18 0718 Results 24hrs Laboratory Tests Test 06/06/18 06:57 06/06/18 06:59 06/06/18 07:17 06/06/18 07:18 Bedside Glucose 165 POC Venous 3.6 *H Lactate Hemoglobin A1c 6.0 H White Blood Count 6.2 # Red Blood Count 3.56 L Hemoglobin 11.0 L Hematocrit 34.7 L Mean Corpuscular 97.5 Volume Mean Corpuscular 30.9 Hemoglobin Mean Corpuscular 31.7 L Hemoglobin Concen t Red Cell 21.9 H Distribution Width Platelet Count 45 L Mean Platelet 11.8 H Volume Immature 0.600 H Granulocytes % Neutrophils % 41.5 Lymphocytes % 46.5 Monocytes % 8.1 Eosinophils % 2.7 Basophils % 0.6 Nucleated Red 0.0 Blood Cells % Immature 0.040 H Granulocytes # Neutrophils # 2.6 Lymphocytes # 2.9 Monocytes # 0.5 Eosinophils # 0.2 Basophils # 0.0 Nucleated Red 0.0 Blood Cells # Prothrombin Time 15.2 H Prothrombin Time 1.2 Ratio INR International 1.19 Normalized Ratio Activated 30.6 Partial Thrombopl ast Time Sodium Level 143 Potassium Level 3.9 Chloride Level 97 Carbon Dioxide 30 Level Anion Gap 16 H Blood Urea 22 H Nitrogen Creatinine 4.16 H Est Glomerular 14 L Filtrat Rate mL/min Glucose Level 160 Calcium Level 8.9 Total Bilirubin 0.6 Direct Bilirubin 0.00 Indirect 0.6 Bilirubin Aspartate Amino 67 H Transf (AST/SGOT) Alanine 33 Aminotransferase (ALT/SGPT) Alkaline 376 H Phosphatase Troponin I < 0.012 Total Protein 7.6 Albumin 4.2 Globulin 3.40 H Albumin/Globulin 1.23 Ratio Lipase 182 Test 06/06/18 08:22 06/06/18 12:05 06/06/18 13:44 Blood Gas Blood arterial Specimen Source Arterial Blood 06/06/2018 8:49:4 Date Drawn 8 AM Arterial Blood pH 7.409 (Temp corrected) Arterial Blood 45.9 H pCO2 (Temp correct) Arterial Blood 357.8 H pO2 (Temp corrected) Arterial Blood 28.4 H HCO3 Arterial Blood 3.2 H Base Excess Arterial Blood 99.7 H Oxygen Saturation Raul Test ACCEPTAB Arterial Blood Left Radial Gas Puncture Site Arterial 0.5 Blood Carboxyhemo globin Arterial Blood 0.3 Methemoglobin Blood Gas A-a O2 309.3 H Differential Oxyhemoglobin 98.9 Percent Blood Gas 37.0 Temperature Blood Gas 18.0 Respiration Rate Blood Gas Actual 33 Respiration Rate Blood Gas VENT - AC Modality FiO2 100.0 Blood Gas Tidal 500.0 Volume Blood Gas Low 5.0 PEEP Setting Blood Gas 24.0 Inspiratory Pressure Blood Gas JASON RT Notified Whom Blood Gas 06/06/2018 9:13:1 Notified Time 7 AM Troponin I < 0.012 Bedside Glucose 134 Medications Medication Current Medications Propofol 100 ml @ 2.1 mls/hr ONCE STAT IV Last administered on 06/06/18at 09:04; Admin Dose 2.1 MLS/HR; Start 06/06/18 at 08:22; Stop 06/08/18 at 07:59 Albuterol/ Ipratropium (Duoneb) 3 ml Q2H RESP THERAPY PRN NEB SHORTNESS OF BREATH; Start 06/06/18 at 10:30 Acetaminophen (Tylenol Supp) 650 mg Q4H PRN MD PAIN LEVEL 1-3 OR FEVER; Start 06/06/18 at 10:30 Famotidine (Pepcid Iv) 20 mg DAILY IV Last administered on 06/06/18at 11:30; Admin Dose 20 MG; Start 06/06/18 at 11:00 Heparin Sodium (Porcine) (Heparin (5000 Units/1ml)) 5,000 unit Q12 SC ; Start 06/06/18 at 21:00 Aspirin (Aspirin) 81 mg DAILY PO ; Start 06/07/18 at 09:00 Atorvastatin Calcium (Lipitor) 80 mg DAILY PO ; Start 06/07/18 at 09:00 Clopidogrel Bisulfate (plaVIX) 75 mg DAILY PO ; Start 06/07/18 at 09:00 Acetaminophen/ Hydrocodone Bitart (Klemme (10/325)) 1 tab Q6 PRN PO PAIN LEVEL 1-5; Start 06/06/18 at 10:30 Levetiracetam (Keppra) 500 mg BID PO ; Start 06/06/18 at 21:00 Levothyroxine Sodium (Synthroid) 200 mcg BEFORE BREAKFAST PO ; Start 06/07/18 at 07:00 Lisinopril (Zestril) 10 mg DAILY PO ; Start 06/07/18 at 09:00 Metoprolol Tartrate (Lopressor) 25 mg BID PO ; Start 06/06/18 at 21:00 Nitroglycerin (Nitroglycerin (Sl Tab) 0.4 Mg) 1 tab [id number] PRN SL CHEST PAIN; Start 06/06/18 at 10:30 Senna (Senokot) 1 tab BID PO ; Start 06/06/18 at 21:00 Sevelamer Carbonate (Renvela) 0.8 gm WITH MEALS PO ; Start 06/06/18 at 12:00 Tiotropium [place] (Spiriva) 1 inh DAILY INH ; Start 06/07/18 at 09:00 Zolpidem Tartrate (Ambien) 5 mg HS PRN PO INSOMNIA; Start 06/06/18 at 21:00 Diagnostic Test (Pha) (Accu-Chek) 1 ea Q4 XX Last administered on 06/06/18at 12:49; Admin Dose 1 EA; Start 06/06/18 at 13:00 Propofol 100 ml @ 2.1 mls/hr ONCE STAT IV Last administered on 06/06/18at 14:20; Admin Dose 35 MLS/HR; Start 06/06/18 at 13:16; Stop 06/08/18 at 12:53 JJ SINGER MD Jun 06, 2018 15:09
--- NOTE | 2018-06-06 19:55 | CONS ---
DATE OF ADMISSION: 06/06/2018 DATE OF CONSULTATION: 06/06/2018 TYPE OF CONSULTATION: Nephrology. REASON FOR CONSULTATION: End-stage renal disease, volume overload. PHYSICIAN REQUESTING CONSULT: Dr. Mondragon. HISTORY OF PRESENT ILLNESS: This is a 53-year-old female with a past medical history of end-stage re nal disease on dialysis Friday, , Friday with access of AV fistula, history of hypertensio n, history of coronary artery disease, history of mineral bone disorder, diabetes, hypothyroidism, dy slipidemia who presented to [facility] after the patient had an apparent seizure ep isode, questionable arrest at her dialysis facility. The patient apparently was found to be minimall y responsive at her dialysis facility. The patient at that point had chest compressions performed. There was no documented loss of pulse. Upon EMS arrival to the scene, the patient's chest compressio ns were discontinued, pulse was palpated. The patient was then transferred to [facility] Room. The patient was intubated upon arrival in the emergency room. A CT scan of the brain was obtained which showed no acute intracranial bleed. The patient had a chest x-ray performed which showed evidence of vascular congestion, cardiomegaly, diffuse air opacification. The patient in the emergency room was started on antibiotic therapy, was given IV Keppra. In terms of patient's renal history, the patient has end-stage renal disease as stated above. Hemodi alysis is today, not completed. There is no report of any hemoptysis, hematemesis or hematochezia. PAST MEDICAL HISTORY: History of end-stage renal disease, history of coronary artery disease, histor y of dyslipidemia, history of cardiac arrest, history of hypertension, history of mineral bone disord er, history of seizure disorder. FAMILY HISTORY: No family history of kidney disease. PAST SURGICAL HISTORY: Status post AV fistula placement, status post parathyroidectomy, history of c ardiac catheterization. MEDICATIONS: The patient's medications have been reviewed. ALLERGIES: NO KNOWN DRUG ALLERGIES. SOCIAL HISTORY: Does not drink, smoke, do drugs. REVIEW OF SYSTEMS: Unable to do adequate review of systems as patient is altered and obtunded. Pert inent positives as obtained by reviewing medical records and speaking to hospital staff, stated in HP I, otherwise negative. PHYSICAL EXAMINATION: VITAL SIGNS: Blood pressure is 163/77, respirations 13, pulse 88, temperature 97.8. HEENT: Head is normocephalic. NECK: Supple. HEART: Regular rate. LUNGS: Show diminished breath sounds at the base. ABDOMEN: Soft, nontender to palpation without rebound or guarding. EXTREMITIES: Negative for clubbing, cyanosis. Positive edema. DERMATOLOGIC: No rashes. MUSCULOSKELETAL: No joint effusions. NEUROLOGIC: Patient is obtunded. LABORATORY DATA: Has been reviewed. IMAGING STUDIES: Have been reviewed. ASSESSMENT AND PLAN: This is a 53-year-old female who presents with: 1. End-stage renal disease. The patient is on dialysis Friday, , Friday, access AV fistu la. Plan is for urgent dialysis today for volume removal and solute clearance. We will dialyze for 3 hours 2k bath, calcium 2.5, attempt ultrafiltration approximately 2 to 3 liters. 2. Hypertensive urgency, etiology is in part due to increased intravascular volume. We will plan fo r ultrafiltration approximately 2 to 3 liters today with hemodialysis. 3. Anemia. Monitor hemoglobin and hematocrit levels. 4. 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 Monitor calcium and phosphorus levels. 5. Acute encephalopathy, etiology is possibly secondary to seizure disorder, postictal state, questi onable cardiac. The patient is status post CT scan of the brain, no acute finding. We will continue to monitor closely. Consider neurologic and cardiac evaluation. 6. Ventilator-dependent respiratory failure. Vent settings and ABG was reviewed. Continue to rafy tor. 7. Seizure disorder, questionable postictal state. Continue antiepileptic medications. Monitor main sely. 8. History of coronary artery disease. Continue medical management. 9. Dyslipidemia. Continue statin therapy. 10. History of papillary thyroid carcinoma. 11. Hepatic steatosis. 12. History of cardiac arrest. 13. Volume overload. We will plan for ultrafiltration with dialysis. Thank you, Dr. Mondragon, for this interesting consult. It will be a pleasure to follow patient with you throughout the hospital course. Dictated By: HARVEY BAIN/DANA Conf#: [id number] DID#: [id number]
[2018-06-06] MEDS ORDERED: PROPOFOL 100 ML IV ONE (20:30)
[2018-06-06] MEDS ORDERED: LEVETIRACETAM 500 MG TAB PO SCH (21:00)
[2018-06-06] MEDS ORDERED: METOPROLOL 25 MG TAB PO SCH (21:00)
[2018-06-06] MEDS ORDERED: SENNA TAB PO SCH (21:00)
[2018-06-06] MEDS: PROPOFOL 100 ML IV SCH (21:23)
[2018-06-06] MEDS: HEPARIN 5,000 UNIT/1 ML VIAL SC SCH (21:42)
[2018-06-07] VITALS (49 sets, daily range): BP systolic 100–191; BP diastolic 30–167; PULSE 75–97; RESP 10–50
[2018-06-07] MEDS: ACCU-CHEK XX SCH ×6 (01:12→21:16)
[2018-06-07] MEDS: PROPOFOL 100 ML IV SCH (03:54)
[2018-06-07] MEDS ORDERED: LEVOTHYROXINE 100 MCG TAB PO SCH (07:00)
--- NOTE | 2018-06-07 08:03 | QN ---
Documentation Comment Patient at this time is unable to sign for themselves. The patient's family is unavailable to us at this particular moment in time. Her status is extremely critical and she is in the ICU on a ventilator. She is in need of urgent/emergent dialysis with fluid removal. As such the indication exists to proceed with a physician documenting that consent is appropriate via the medical team. We will get the formalized paperwork if and when we can get in touch with the family. For now proceed with hemodialysis/ultrafiltration MARGARITO Mckeon MD, MD Jun 07, 2018 08:03
[2018-06-07] MEDS: SEVELAMER CARBONATE 0.8 GM PKT NGT SCH ×3 (08:16→17:35)
[2018-06-07] MEDS: LEVOTHYROXINE 100 MCG TAB NGT SCH (08:16)
--- NOTE | 2018-06-07 08:21 | PN ---
DATE: 06/07/2018 SUBJECTIVE: The patient had hemodialysis yesterday. Please note that hemodialysis was necessary and urgent yesterday. A two-doctor consent was obtained by myself and Dr. Mcdaniel. No other acute even ts noted overnight. OBJECTIVE: VITAL SIGNS: Blood pressure is 119/35, respirations 16, pulse 84, temperature 98.6. HEENT: Head is normocephalic. NECK: Supple. HEART: Regular rate. LUNGS: Show diminished breath sounds at the base. ABDOMEN: Soft, nontender to palpation without rebound or guarding. EXTREMITIES: Negative for clubbing, cyanosis. Trace edema. DERMATOLOGIC: No rashes. MUSCULOSKELETAL: No joint effusion. NEUROLOGIC: No change in exam. MEDICATIONS: The patient's medications have been reviewed. LABORATORY DATA: Reviewed. ABG was reviewed. IMAGING STUDIES: Reviewed. ASSESSMENT AND PLAN: 1. End-stage renal disease. The patient is on dialysis Friday, , Friday with access AV f istula. The patient had hemodialysis yesterday with 3 liters removed. We will anticipate dialysis a gain tomorrow for ultrafiltration and solute clearance. 2. Hypertensive urgency. Etiology is in part due to increased intravascular volume. Blood pressure s are improved. Continue current blood pressure regimen, adjust as needed. Continue ultrafiltration with dialysis. 3. Anemia. Continue to monitor hemoglobin and hematocrit levels. We will give Epogen intermittentl y with dialysis. 4. 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 We will continue to monitor calcium, an d phosphorus levels. Continue phosphate binders. 5. Ventilator dependent respiratory failure. Vent settings and ABG has been reviewed. Continue to monitor. Follow up with pulmonary. Consider weaning. 6. Acute encephalopathy. Etiology may be multifactorial secondary to seizure, postictal state, ques tionable cardiac arrest. The patient's mental status is improving. Continue to monitor. Consider n eurologic evaluation. 7. Coronary artery disease. Continue medical management. 8. Dyslipidemia. Continue statin therapy. 9. Hepatic steatosis. 10. History of papillary thyroid carcinoma. 11. History of cardiac arrest. 12. Volume overload. Continue ultrafiltration with hemodialysis. Dictated By: HARVEY BAIN/NTS Conf#: [id number] DID#: [id number] CC: MARGARITO VIVAR MD; JJ SINGER M.D.;*EndCC*
[2018-06-07] MEDS: LEVETIRACETAM 500 MG TAB NGT SCH ×2 (08:31→20:32)
[2018-06-07] MEDS: ASPIRIN 81 MG TAB NGT SCH (08:33)
[2018-06-07] MEDS: SENNA TAB NGT SCH ×2 (08:34→20:33)
[2018-06-07] MEDS: CLOPIDOGREL 75 MG TAB NGT SCH (08:34)
[2018-06-07] MEDS: LISINOPRIL 10 MG TAB NGT SCH (08:35)
[2018-06-07] MEDS: METOPROLOL 25 MG TAB NGT SCH ×2 (08:35→20:32)
[2018-06-07] MEDS ORDERED: ATORVASTATIN 80 MG TAB PO SCH (09:00)
[2018-06-07] MEDS ORDERED: CLOPIDOGREL 75 MG TAB PO SCH (09:00)
[2018-06-07] MEDS: TIOTROPIUM 18 MCG CAPSULE INHA DEV INH SCH (09:00)
[2018-06-07] MEDS ORDERED: ASPIRIN 81 MG TAB PO SCH (09:00)
[2018-06-07] MEDS ORDERED: LISINOPRIL 10 MG TAB PO SCH (09:00)
[2018-06-07] MEDS: FAMOTIDINE 20 MG INJ IV SCH (09:12)
[2018-06-07] MEDS: HEPARIN 5,000 UNIT/1 ML VIAL SC SCH ×2 (09:13→20:35)
--- NOTE | 2018-06-07 10:46 | CONS ---
Assessment/Plan Assessment/Plan Hospital Course (Demo Recall) Acute hypoxemic hypercapnic respiratory failure status post intubation on the ventilator now Coronary artery disease with history of NV History of multiple PCI including coronary total occlusion of the right coronary artery at [facility] complicated by cardiopulmonary arrest at recovery per review of the old chart History of hypertension Renal failure on dialysis Congestive heart failure/fluid overload Ischemic cardiomyopathy Recommendation: Continue with aspirin and Plavix given her recent PCI Vent support as per pulmonary. Antibiotic management will be deferred to internal medicine team and pulmonary recommendations Hemodialysis will be continued managed as per renal team Fluid management through hemodialysis Continue with ICU care for now Thank you for his referral. We will continue to follow along with you until or his associate return on Friday YESI BERNABE MD [facility] Consultation Date/Type/Reason Admit Date/Time June 06, 2018 Date of Consultation: Jun 07, 2018 Type of Consult Cardiology Reason for Consultation CAD . CHF Requesting Provider: MARGARITO VIVAR MD Date/Time of Note DATE: 06/07/18 TIME: 10:39 Hx of Present Illness Interventional cardiology consultation note (on behalf of ) Chief complaint: Respiratory failure Reason for consult: Congestive heart failure, coronary artery disease History of present illness: Thank you for this referral. History was obtained from review of the old chart discussion with the staff and physicians. Patient himself is intubated and unable to provide any history to me. Patient also is known to me from previous admission to the hospital This is a 53-year-old -[place] female with multiple complicated medical history including severe coronary artery disease status post PCI, renal failure on dialysis, cardiomyopathy who was brought in from the senior living because of increased respiratory failure. Patient had to be intubated in the emergency room and has been admitted to intensive care unit. Patient is currently intubated on the vent in the ICU and is unable to provide any history to me. Allergies: No known drug allergies Medications were reviewed as per medical reconciliation sheet + Plavix as far as she can tell me Family history: No history of early coronary artery disease Social history: Does not smoke or drink Past medical history: History of well differentiated papillary carcinoma thyroid), coronary artery disease that is post PCI, diabetes (Type II complicated by end-stage renal disease, retinopathy, peripheral neuropathy), GERD, high cholesterol, hypertension, hypothyroid, renal disease (End-stage renal disease on hemodialysi s Friday) Review of system: Patient denies all others except for above-mentioned Past Medical History Home Meds Active Scripts Sevelamer Carbonate* (Renvela*) 800 Mg Tablet, 800 MG PO WITH MEALS for 30 Days, #90 TAB Prov:MARGARITO VIVAR MD 03/04/18 Aspirin (Aspirin) 81 Mg Chew, 81 MG PO DAILY for 30 Days, #30 TAB Prov:MARGARITO VIVAR MD 03/04/18 Atorvastatin* (Atorvastatin*) 80 Mg Tablet, 80 MG PO DAILY for 30 Days, #30 TAB 1 Refill Prov:MARGARITO VIVAR MD 03/04/18 Tiotropium [place]* (Spiriva*) 18 Mcg Cap.w.dev, 1 INH INH DAILY for 30 Days, #30 CAP 1 Refill Prov:MARGARITO VIVAR MD 03/04/18 Reported Medications Nitroglycerin* (Nitroglycerin* SL) 0.4 Mg Tab.subl, 0.4 MG SL Q5MIN PRN for CHEST PAIN, BOTTLE 05/25/18 Lisinopril* (Lisinopril*) 10 Mg Tablet, 10 MG PO DAILY, #30 TAB 05/25/18 Clopidogrel Bisulfate* (Clopidogrel Bisulfate*) 75 Mg Tablet, 75 MG PO DAILY, #30 TAB 05/25/18 Sennosides* (Senna Lax*) 8.6 Mg Tablet, 1 TAB PO BID, TAB 05/09/18 Temazepam* (Temazepam*) 30 Mg Capsule, 30 MG PO HS PRN for INSOMNIA, CAP 05/09/18 Levetiracetam* (Levetiracetam*) 500 Mg Tablet, 500 MG PO BID, TAB 05/09/18 Metoprolol Tartrate* (Lopressor*) 25 Mg Tab, 25 MG PO BID, #60 TAB 05/09/18 Hydrocodone/Acetaminophen ([place] 10-325 Tablet) 1 Each Tablet, 1 EACH PO NEEDED, TAB 05/09/18 Levothyroxine Sodium* (Levothyroxine Sodium*) 200 Mcg Tablet, 200 MCG PO BEFORE BREAKFAST, #30 TAB 05/09/18 Medications Current Medications Propofol 100 ml @ 2.1 mls/hr ONCE STAT IV Last administered on 06/06/18 09:04; Admin Dose 2.1 MLS/HR; Start 06/06/18 at 08:22; Stop 06/08/18 at 07:59 Albuterol/ Ipratropium (Duoneb) 3 ml Q2H RESP THERAPY PRN NEB SHORTNESS OF BREATH; Start 06/06/18 at 10:30 Acetaminophen (Tylenol Supp) 650 mg Q4H PRN [place] PAIN LEVEL 1-3 OR FEVER; Start 06/06/18 at 10:30 Famotidine (Pepcid Iv) 20 mg DAILY IV Last administered on 06/07/18 09:12; Admin Dose 20 MG; Start 06/06/18 at 11:00 Heparin Sodium (Porcine) (Heparin (5000 Units/1ml)) 5,000 unit Q12 SC Last administered on 06/07/18at 09:13; Admin Dose 5,000 UNIT; Start 06/06/18 at 21:00 Acetaminophen/ Hydrocodone Bitart ([place] (10/325)) 1 tab Q6 PRN [place] PAIN LEVEL 1-5; Start 06/06/18 at 10:30 Nitroglycerin (Nitroglycerin (Sl Tab) 0.4 Mg) 1 tab [id number] PRN SL CHEST PAIN; Start 06/06/18 at 10:30 Tiotropium [place] (Spiriva) 1 inh DAILY INH ; Start 06/07/18 at 09:00 Zolpidem Tartrate (Ambien) 5 mg HS PRN PO INSOMNIA; Start 06/06/18 at 21:00 Diagnostic Test (Pha) (Accu-Chek) 1 ea Q4 XX Last administered on 06/07/18at 09:15; Admin Dose 1 EA; Start 06/06/18 at 13:00 Propofol 100 ml @ 2.1 mls/hr Q12H IV Last administered on 06/07/18 03:54; Admin Dose 6.3 MLS/HR; Start 06/06/18 at 21:00 Aspirin (Aspirin) 81 mg DAILY NGT Last administered on 06/07/18 08:33; Admin Dose 81 MG; Start 06/07/18 at 09:00 Atorvastatin Calcium (Lipitor) 80 mg QHS NGT ; Start 06/07/18 at 21:00 Clopidogrel Bisulfate (plaVIX) 75 mg DAILY NGT Last administered on 06/07/18 08:34; Admin Dose 75 MG; Start 06/07/18 at 09:00 Levetiracetam (Keppra) 500 mg BID NGT Last administered on 06/07/18 08:31; Admin Dose 500 MG; Start 06/07/18 at 09:00 Levothyroxine Sodium (Synthroid) 200 mcg BEFORE BREAKFAST NGT Last administered on 06/07/18 08:16; Admin Dose 200 MCG; Start 06/07/18 at 07:00 Lisinopril (Zestril) 10 mg DAILY NGT Last administered on 06/07/18 08:35; Admin Dose 10 MG; Start 06/07/18 at 09:00 Metoprolol Tartrate (Lopressor) 25 mg BID NGT Last administered on 06/07/18 08:35; Admin Dose 25 MG; Start 06/07/18 at 09:00 Senna (Senokot) 1 tab BID NGT Last administered on 06/07/18 08:34; Admin Dose 1 TAB; Start 06/07/18 at 09:00 Sevelamer Carbonate (Renvela) 0.8 gm WITH MEALS NGT Last administered on 06/07/18 08:16; Admin Dose 0.8 GM; Start 06/07/18 at 07:35 Allergies: Coded Allergies: No Known Drug Allergies (Verified Allergy, Unknown, 06/06/18) Past Surgical History Past Surgical Hx: angioplasty, other (Status post near total thyroidectomy; status post times 2; status post right shoulder arthroscopy; status post parathyroidectomy; status post AV fistula; cataract extraction) Social History Alcohol Use: none Smoking Status: Unknown if ever smoked Drug Use: none Exam/Review of Systems Vital Signs Vitals Vital Signs Date Temp Pulse Resp B/P (MAP) Pulse Ox O2 O2 Flow FiO2 Time Delivery Rate 06/07/18 75 12 107/46 100 10:00 (66) 06/07/18 98.4 Mechanical 09:00 Ventilator 06/07/18 35 05:37 06/06/18 10.0 14:00 Intake and Output 06/06/18 06/06/18 06/07/18 1515:00 23:00 07:00 IntakeIntake Total 100 ml 222.0 ml 58.8 ml OutputOutput Total 3500 ml BalanceBalance 100 ml 222.0 ml -3441.2 ml Exam Exam General: Status post intubation on the ventilator now HEENT: NC/AT. pupils are equal. round. NECK:. no stridor. CV: RRR. systolic murmur; no gallop or rubs. PULM: no wheezing + rhonchi. GI: SOFT, NT, ND, no rebound or guarding Extremity: + B/L LE edema. no clubbing. neuro: Sedated. Psych: calm rectal: deferred EKG was personally reviewed which shows sinus tachycardia. Marked ST-T wave depression consistent with inferolateral ischemia possible inferior infarct age undetermined Chest x-ray on admission shows: Cardiomegaly and mild pulmonary venous congestion, decreased compared with the prior study. Mild bibasilar atelectasis and small pleural effusions, decreased. Labs Result Diagram: 06/07/18 0818 06/07/18 0818 Results 24hrs Laboratory Tests Test 06/06/18 12:05 06/06/18 13:44 06/06/18 15:41 06/06/18 16:55 Troponin I < 0.012 < 0.012 Bedside Glucose 134 120 Test 06/06/18 21:43 06/06/18 22:36 06/07/18 01:10 06/07/18 05:00 Bedside Glucose 99 88 Troponin I 0.031 Blood Gas Blood arterial Specimen Source Arterial Blood 06/07/2018 4:20:4 Date Drawn 5 AM Arterial Blood pH 7.574 *H (Temp corrected) Arterial Blood 28.8 L pCO2 (Temp correct) Arterial Blood 138.4 H pO2 (Temp corrected) Arterial Blood 26.0 HCO3 Arterial Blood 4.6 H Base Excess Arterial Blood 98.9 H Oxygen Saturation Raul Test N/A Arterial Blood LB Gas Puncture Site Arterial 0.6 Blood Carboxyhemo globin Arterial Blood 0.3 Methemoglobin Blood Gas A-a O2 113.7 H Differential Oxyhemoglobin 98.0 Percent Blood Gas 37.0 Temperature Blood Gas 12.0 Respiration Rate Blood Gas Actual 18 Respiration Rate Blood Gas VENT - AC Modality FiO2 40.0 Blood Gas Tidal 500.0 Volume Blood Gas Low 5.0 PEEP Setting Blood Gas ISAAC ORTIZ Critical Value Read Back Blood Gas UP Notified Whom Blood Gas 06/07/2018 4:29:4 Notified Time 5 AM Test 06/07/18 05:21 4/28/19 08:18 06/07/18 08:48 Bedside Glucose 84 84 White Blood Count 4.2 #L Red Blood Count 3.76 L Hemoglobin 10.9 L Hematocrit 34.8 L Mean Corpuscular 92.6 Volume Mean Corpuscular 29.0 Hemoglobin Mean Corpuscular 31.3 L Hemoglobin Concen t Red Cell 20.5 H Distribution Width Platelet Count 53 L Mean Platelet 11.5 H Volume Immature 0.200 Granulocytes % Neutrophils % 54.8 Lymphocytes % 28.8 Monocytes % 13.1 H Eosinophils % 2.4 Basophils % 0.7 Nucleated Red 0.0 Blood Cells % Immature 0.010 Granulocytes # Neutrophils # 2.3 Lymphocytes # 1.2 Monocytes # 0.6 Eosinophils # 0.1 Basophils # 0.0 Nucleated Red 0.0 Blood Cells # Sodium Level 140 Potassium Level 4.0 Chloride Level 96 L Carbon Dioxide 30 Level Anion Gap 14 H Blood Urea 18 Nitrogen Creatinine 3.69 H Est Glomerular 16 L Filtrat Rate mL/min Glucose Level 84 # Lactic Acid Level 2.1 *H Calcium Level 9.2 Phosphorus Level 4.4 Magnesium Level 1.9 Medications Medications Current Medications Propofol 100 ml @ 2.1 mls/hr ONCE STAT IV Last administered on 06/06/18at 09:04; Admin Dose 2.1 MLS/HR; Start 06/06/18 at 08:22; Stop 06/08/18 at 07:59 Albuterol/ Ipratropium (Duoneb) 3 ml Q2H RESP THERAPY PRN NEB SHORTNESS OF BREATH; Start 06/06/18 at 10:30 Acetaminophen (Tylenol Supp) 650 mg Q4H PRN [place] PAIN LEVEL 1-3 OR FEVER; Start 06/06/18 at 10:30 Famotidine (Pepcid Iv) 20 mg DAILY IV Last administered on 06/07/18at 09:12; Admin Dose 20 MG; Start 06/06/18 at 11:00 Heparin Sodium (Porcine) (Heparin (5000 Units/1ml)) 5,000 unit Q12 SC Last administered on 06/07/18at 09:13; Admin Dose 5,000 UNIT; Start 06/06/18 at 21:00 Acetaminophen/ Hydrocodone Bitart ([place] (10)) 1 tab Q6 PRN PO PAIN LEVEL 1-5; Start 06/06/18 at 10:30 Nitroglycerin (Nitroglycerin (Sl Tab) 0.4 Mg) 1 tab [id number] PRN SL CHEST PAIN; Start 06/06/18 at 10:30 Tiotropium [place] (Spiriva) 1 inh DAILY INH ; Start 06/07/18 at 09:00 Zolpidem Tartrate (Ambien) 5 mg HS PRN PO INSOMNIA; Start 06/06/18 at 21:00 Diagnostic Test (Pha) (Accu-Chek) 1 ea Q4 XX Last administered on 06/07/18 09:15; Admin Dose 1 EA; Start 06/06/18 at 13:00 Propofol 100 ml @ 2.1 mls/hr Q12H IV Last administered on 06/07/18 03:54; Admin Dose 6.3 MLS/HR; Start 06/06/18 at 21:00 Aspirin (Aspirin) 81 mg DAILY NGT Last administered on 06/07/18 08:33; Admin Dose 81 MG; Start 06/07/18 at 09:00 Atorvastatin Calcium (Lipitor) 80 mg QHS NGT ; Start 06/07/18 at 21:00 Clopidogrel Bisulfate (plaVIX) 75 mg DAILY NGT Last administered on 06/07/18 08:34; Admin Dose 75 MG; Start 06/07/18 at 09:00 Levetiracetam (Keppra) 500 mg BID NGT Last administered on 06/07/18 08:31; Admin Dose 500 MG; Start 06/07/18 at 09:00 Levothyroxine Sodium (Synthroid) 200 mcg BEFORE BREAKFAST NGT Last administered on 06/07/18 08:16; Admin Dose 200 MCG; Start 06/07/18 at 07:00 Lisinopril (Zestril) 10 mg DAILY NGT Last administered on 06/07/18 08:35; Admin Dose 10 MG; Start 06/07/18 at 09:00 Metoprolol Tartrate (Lopressor) 25 mg BID NGT Last administered on 06/07/18 08:35; Admin Dose 25 MG; Start 06/07/18 at 09:00 Senna (Senokot) 1 tab BID NGT Last administered on 06/07/18 08:34; Admin Dose 1 TAB; Start 06/07/18 at 09:00 Sevelamer Carbonate (Renvela) 0.8 gm WITH MEALS NGT Last administered on 06/07/18at 08:16; Admin Dose 0.8 GM; Start 06/07/18 at 07:35 YESI BERNABE MD Jun 07, 2018 10:46
--- NOTE | 2018-06-07 11:36 | CONS ---
Consult Date/Type/Reason Admit Date/Time Jun 06, 2018 at 08:42 Initial Consult Date 06/07/18 Type of Consultation: Pulm/CC Requesting Provider: MARGARITO VIVAR MD Date/Time of Note DATE: 06/07/18 TIME: 11:33 Subjective No events. s/p HD/UF - 3L. On sedation vacation. Objective Vitals Vital Signs Date Temp Pulse Resp B/P (MAP) Pulse Ox O2 O2 Flow FiO2 Time Delivery Rate 06/07/18 75 12 107/46 100 10:00 (66) 06/07/18 98.4 Mechanical 09:00 Ventilator 06/07/18 30 08:00 06/06/18 10.0 14:00 Intake and Output 06/06/18 06/06/18 06/07/18 1515:00 23:00 07:00 IntakeIntake Total 100 ml 222.0 ml 69.3 ml OutputOutput Total 3500 ml BalanceBalance 100 ml 222.0 ml -3430.7 ml Exam HEENT: Neck supple; no JVD; no LAD; + ET tube CVS: RRR, S1 and S2, + 2/6 LEANNE CHEST: Diminished BS at bases ABD: Soft, NT, + BS EXT: No c/c; + tr edema Results/Medications Result Diagram: 06/07/1818 06/07/1818 Results 24 hrs Laboratory Tests Test 06/06/18 12:05 06/06/18 13:44 06/06/18 15:41 06/06/18 16:55 Troponin I < 0.012 < 0.012 Bedside Glucose 134 120 Test 06/06/18 21:43 06/06/18 22:36 06/07/18 01:10 06/07/18 05:00 Bedside Glucose 99 88 Troponin I 0.031 Blood Gas Blood arterial Specimen Source Arterial Blood 06/07/2018 4:20:4 Date Drawn 5 AM Arterial Blood pH 7.574 *H (Temp corrected) Arterial Blood 28.8 L pCO2 (Temp correct) Arterial Blood 138.4 H pO2 (Temp corrected) Arterial Blood 26.0 HCO3 Arterial Blood 4.6 H Base Excess Arterial Blood 98.9 H Oxygen Saturation Raul Test N/A Arterial Blood LB Gas Puncture Site Arterial 0.6 Blood Carboxyhemo globin Arterial Blood 0.3 Methemoglobin Blood Gas A-a O2 113.7 H Differential Oxyhemoglobin 98.0 Percent Blood Gas 37.0 Temperature Blood Gas 12.0 Respiration Rate Blood Gas Actual 18 Respiration Rate Blood Gas VENT - AC Modality FiO2 40.0 Blood Gas Tidal 500.0 Volume Blood Gas Low 5.0 PEEP Setting Blood Gas ISAAC ORTIZ Critical Value Read Back Blood Gas UP Notified Whom Blood Gas 06/07/2018 4:29:4 Notified Time 5 AM Test 06/07/18 05:21 06/07/18 08:18 06/07/18 08:48 Bedside Glucose 84 84 White Blood Count 4.2 #L Red Blood Count 3.76 L Hemoglobin 10.9 L Hematocrit 34.8 L Mean Corpuscular 92.6 Volume Mean Corpuscular 29.0 Hemoglobin Mean Corpuscular 31.3 L Hemoglobin Concen t Red Cell 20.5 H Distribution Width Platelet Count 53 L Mean Platelet 11.5 H Volume Immature 0.200 Granulocytes % Neutrophils % 54.8 Lymphocytes % 28.8 Monocytes % 13.1 H Eosinophils % 2.4 Basophils % 0.7 Nucleated Red 0.0 Blood Cells % Immature 0.010 Granulocytes # Neutrophils # 2.3 Lymphocytes # 1.2 Monocytes # 0.6 Eosinophils # 0.1 Basophils # 0.0 Nucleated Red 0.0 Blood Cells # Sodium Level 140 Potassium Level 4.0 Chloride Level 96 L Carbon Dioxide 30 Level Anion Gap 14 H Blood Urea 18 Nitrogen Creatinine 3.69 H Est Glomerular 16 L Filtrat Rate mL/min Glucose Level 84 # Lactic Acid Level 2.1 *H Calcium Level 9.2 Phosphorus Level 4.4 Magnesium Level 1.9 Home Meds Active Scripts Sevelamer Carbonate* (Renvela*) 800 Mg Tablet, 800 MG PO WITH MEALS for 30 Days, #90 TAB Prov:MARGARITO VIVAR MD 03/04/18 Aspirin (Aspirin) 81 Mg Chew, 81 MG PO DAILY for 30 Days, #30 TAB Prov:MARGARITO VIVAR MD 03/04/18 Atorvastatin* (Atorvastatin*) 80 Mg Tablet, 80 MG PO DAILY for 30 Days, #30 TAB 1 Refill Prov:MARGARITO VIVAR MD 03/04/18 Tiotropium [place]* (Spiriva*) 18 Mcg Cap.w.dev, 1 INH INH DAILY for 30 Days, #30 CAP 1 Refill Prov:MARGARITO VIVAR MD 03/04/18 Reported Medications Nitroglycerin* (Nitroglycerin* SL) 0.4 Mg Tab.subl, 0.4 MG SL Q5MIN PRN for CHEST PAIN, BOTTLE 05/25/18 Lisinopril* (Lisinopril*) 10 Mg Tablet, 10 MG PO DAILY, #30 TAB 05/25/18 Clopidogrel Bisulfate* (Clopidogrel Bisulfate*) 75 Mg Tablet, 75 MG PO DAILY, #30 TAB 05/25/18 Sennosides* (Senna Lax*) 8.6 Mg Tablet, 1 TAB PO BID, TAB 05/09/18 Temazepam* (Temazepam*) 30 Mg Capsule, 30 MG PO HS PRN for INSOMNIA, CAP 05/09/18 Levetiracetam* (Levetiracetam*) 500 Mg Tablet, 500 MG PO BID, TAB 05/09/18 Metoprolol Tartrate* (Lopressor*) 25 Mg Tab, 25 MG PO BID, #60 TAB 05/09/18 Hydrocodone/Acetaminophen ([place] 10-325 Tablet) 1 Each Tablet, 1 EACH PO NEEDED, TAB 05/09/18 Levothyroxine Sodium* (Levothyroxine Sodium*) 200 Mcg Tablet, 200 MCG PO BEFORE BREAKFAST, #30 TAB 05/09/18 Medications Current Medications Propofol 100 ml @ 2.1 mls/hr ONCE STAT IV Last administered on 06/06/18at 09:04; Admin Dose 2.1 MLS/HR; Start 06/06/18 at 08:22; Stop 06/08/18 at 07:59 Albuterol/ Ipratropium (Duoneb) 3 ml Q2H RESP THERAPY PRN NEB SHORTNESS OF BREATH; Start 06/06/18 at 10:30 Acetaminophen (Tylenol Supp) 650 mg Q4H PRN [place] PAIN LEVEL 1-3 OR FEVER; Start 06/06/18 at 10:30 Famotidine (Pepcid Iv) 20 mg DAILY IV Last administered on 06/07/18at 09:12; Admin Dose 20 MG; Start 06/06/18 at 11:00 Heparin Sodium (Porcine) (Heparin (5000 Units/1ml)) 5,000 unit Q12 SC Last administered on 06/07/18at 09:13; Admin Dose 5,000 UNIT; Start 06/06/18 at 21:00 Acetaminophen/ Hydrocodone Bitart ([place] (10/325)) 1 tab Q6 PRN PO PAIN LEVEL 1-5; Start 06/06/18 at 10:30 Nitroglycerin (Nitroglycerin (Sl Tab) 0.4 Mg) 1 tab [id number] PRN SL CHEST PAIN; Start 06/06/18 at 10:30 Tiotropium [place] (Spiriva) 1 inh DAILY INH ; Start 06/07/18 at 09:00 Zolpidem Tartrate (Ambien) 5 mg HS PRN PO INSOMNIA; Start 06/06/18 at 21:00 Diagnostic Test (Pha) (Accu-Chek) 1 ea Q4 XX Last administered on 06/07/18at 09:15; Admin Dose 1 EA; Start 06/06/18 at 13:00 Propofol 100 ml @ 2.1 mls/hr Q12H IV Last administered on 06/07/18 03:54; Admin Dose 6.3 MLS/HR; Start 06/06/18 at 21:00 Aspirin (Aspirin) 81 mg DAILY NGT Last administered on 06/07/18 08:33; Admin Dose 81 MG; Start 06/07/18 at 09:00 Atorvastatin Calcium (Lipitor) 80 mg QHS NGT ; Start 06/07/18 at 21:00 Clopidogrel Bisulfate (plaVIX) 75 mg DAILY NGT Last administered on 06/07/18 08:34; Admin Dose 75 MG; Start 06/07/18 at 09:00 Levetiracetam (Keppra) 500 mg BID NGT Last administered on 06/07/18 08:31; Admin Dose 500 MG; Start 06/07/18 at 09:00 Levothyroxine Sodium (Synthroid) 200 mcg BEFORE BREAKFAST NGT Last administered on 06/07/18 08:16; Admin Dose 200 MCG; Start 06/07/18 at 07:00 Lisinopril (Zestril) 10 mg DAILY NGT Last administered on 06/07/18 08:35; Admin Dose 10 MG; Start 06/07/18 at 09:00 Metoprolol Tartrate (Lopressor) 25 mg BID NGT Last administered on 06/07/18 08:35; Admin Dose 25 MG; Start 06/07/18 at 09:00 Senna (Senokot) 1 tab BID NGT Last administered on 06/07/18at 08:34; Admin Dose 1 TAB; Start 06/07/18 at 09:00 Sevelamer Carbonate (Renvela) 0.8 gm WITH MEALS NGT Last administered on 06/07/18at 08:16; Admin Dose 0.8 GM; Start 06/07/18 at 07:35 Assessment/Plan Assessment/Plan (Daily) IMP: 1. Respiratory Failure 2/2 pulmonary edema/volume overload, possibly worsened by HTN crisis. Will evaluate for cardiac ischemia, however likely needs more UF 2. ESRD on HD 3. Volume Overload 4. HTN Heart Disease 5. CHF 6. Hypothyroid 7. Seizure d/o RECS: 1. Wean to CPAP/PS--extubate if tolerated 2. Cont HD/UF 3. BP control 4. Hold sedation 5. Follow-up TTE 40 min cc time JJ SINGER MD Jun 07, 2018 11:36
--- NOTE | 2018-06-07 13:17 | PN ---
Date/Time of Note Date/Time of Note DATE: 06/07/18 TIME: 13:15 Assessment/Plan VTE Prophylaxis Risk score (from Ns)>0 risk: 6 SCD applied (from Ns): Yes Pharmacological prophylaxis: heparin Lines/Catheters IV Catheter Type (from Nrs): Mid Line Urinary Cath still in place: No Assessment/Plan Problems: (1) Volume overload Status: Acute Comment: Has been dialyzed and ultrafiltrate. She is now off of the ventilator successfully. Careful continuation of hemodialysis as per nephrology. Qualifiers: Hypervolemia type: other Qualified Codes: E87.79 - Other fluid overload (2) End stage renal disease on dialysis due to type 2 diabetes mellitus Status: Chronic Comment: As above. (3) Atherosclerotic heart disease of [place] coronary artery without angina pectoris Status: Chronic Comment: Quiescent and her enzymes were fortunately negative. According the family there is no further planned procedures pending at [facility] although her primary check inspector will have more information on that Qualifiers: [place] vs. transplanted heart: [place] heart Qualified Codes: I25.10 - Atherosclerotic heart disease of [place] coronary artery without angina pectoris (4) DM (diabetes mellitus), type 2 Status: Chronic Comment: Adequate glycemic control. Resume diet now that extubated Qualifiers: Diabetes mellitus longterm insulin use: unspecified ferry terminal agent insulin use status Diabetes mellitus complication status: with kidney complications Diabetes mellitus complication detail: with chronic kidney disease Chronic kidney disease stage: on chronic dialysis Qualified Codes: E11.22 - Type 2 diabetes mellitus with diabetic chronic kidney disease; N18.6 - End stage renal disease; Z99.2 - Dependence on renal dialysis (5) Essential (primary) hypertension Status: Chronic Comment: Adequate Result Diagram: 06/07/18 0818 06/07/18 0818 Results 24hrs Laboratory Tests Test 06/06/18 13:44 06/06/18 15:41 06/06/18 16:55 06/06/18 21:43 Bedside Glucose 134 120 99 Troponin I < 0.012 Test 06/06/18 22:36 06/07/18 01:10 06/07/18 05:00 06/07/18 05:21 Troponin I 0.031 Bedside Glucose 88 84 Blood Gas Blood arterial Specimen Source Arterial Blood 06/07/2018 4:20:4 Date Drawn 5 AM Arterial Blood pH 7.574 *H (Temp corrected) Arterial Blood 28.8 L pCO2 (Temp correct) Arterial Blood 138.4 H pO2 (Temp corrected) Arterial Blood 26.0 HCO3 Arterial Blood 4.6 H Base Excess Arterial Blood 98.9 H Oxygen Saturation Raul Test N/A Arterial Blood LB Gas Puncture Site Arterial 0.6 Blood Carboxyhemo globin Arterial Blood 0.3 Methemoglobin Blood Gas A-a O2 113.7 H Differential Oxyhemoglobin 98.0 Percent Blood Gas 37.0 Temperature Blood Gas 12.0 Respiration Rate Blood Gas Actual 18 Respiration Rate Blood Gas VENT - AC Modality FiO2 40.0 Blood Gas Tidal 500.0 Volume Blood Gas Low 5.0 PEEP Setting Blood Gas ISAAC ORTIZ Critical Value Read Back Blood Gas UP Notified Whom Blood Gas 06/07/2018 4:29:4 Notified Time 5 AM Test 06/07/18 08:18 06/07/18 08:48 06/07/18 12:14 White Blood Count 4.2 #L Red Blood Count 3.76 L Hemoglobin 10.9 L Hematocrit 34.8 L Mean Corpuscular 92.6 Volume Mean Corpuscular 29.0 Hemoglobin Mean Corpuscular 31.3 L Hemoglobin Concen t Red Cell 20.5 H Distribution Width Platelet Count 53 L Mean Platelet 11.5 H Volume Immature 0.200 Granulocytes % Neutrophils % 54.8 Lymphocytes % 28.8 Monocytes % 13.1 H Eosinophils % 2.4 Basophils % 0.7 Nucleated Red 0.0 Blood Cells % Immature 0.010 Granulocytes # Neutrophils # 2.3 Lymphocytes # 1.2 Monocytes # 0.6 Eosinophils # 0.1 Basophils # 0.0 Nucleated Red 0.0 Blood Cells # Sodium Level 140 Potassium Level 4.0 Chloride Level 96 L Carbon Dioxide 30 Level Anion Gap 14 H Blood Urea 18 Nitrogen Creatinine 3.69 H Est Glomerular 16 L Filtrat Rate mL/min Glucose Level 84 # Lactic Acid Level 2.1 *H Calcium Level 9.2 Phosphorus Level 4.4 Magnesium Level 1.9 Bedside Glucose 84 90 Subjective 24 Hr Interval Summary Free Text/Dictation Patient has now successfully been extubated. Patient is got a sore throat but is able to speak a few words which are cogent and coherent Respiratory: no complaints Cardiovascular: no complaints Gastrointestinal: no complaints Genitourinary: no complaints Exam/Review of Systems Exam Vitals Vital Signs Date Temp Pulse Resp B/P (MAP) Pulse Ox O2 O2 Flow FiO2 Time Delivery Rate 06/07/18 90 12:00 06/07/18 98.6 20 131/80 100 Nasal 12:00 (97) Cannula 06/07/18 30 08:00 06/06/18 10.0 14:00 Intake and Output 06/06/18 06/06/18 06/07/18 1515:00 23:00 07:00 IntakeIntake Total 100 ml 222.0 ml 69.3 ml OutputOutput Total 3500 ml BalanceBalance 100 ml 222.0 ml -3430.7 ml Constitutional: alert, oriented Respiratory: normal air movement, crackles/rales Cardiovascular: regular rate and rhythm, nl pulses Gastrointestinal: soft, nl liver, spleen, non-tender Results Results 24hrs Laboratory Tests Test 06/06/18 13:44 06/06/18 15:41 06/06/18 16:55 06/06/18 21:43 Bedside Glucose 134 120 99 Troponin I < 0.012 Test 06/06/18 22:36 06/07/18 01:10 06/07/18 05:00 06/07/18 05:21 Troponin I 0.031 Bedside Glucose 88 84 Blood Gas Blood arterial Specimen Source Arterial Blood 06/07/2018 4:20:4 Date Drawn 5 AM Arterial Blood pH 7.574 *H (Temp corrected) Arterial Blood 28.8 L pCO2 (Temp correct) Arterial Blood 138.4 H pO2 (Temp corrected) Arterial Blood 26.0 HCO3 Arterial Blood 4.6 H Base Excess Arterial Blood 98.9 H Oxygen Saturation Raul Test N/A Arterial Blood LB Gas Puncture Site Arterial 0.6 Blood Carboxyhemo globin Arterial Blood 0.3 Methemoglobin Blood Gas A-a O2 113.7 H Differential Oxyhemoglobin 98.0 Percent Blood Gas 37.0 Temperature Blood Gas 12.0 Respiration Rate Blood Gas Actual 18 Respiration Rate Blood Gas VENT - AC Modality FiO2 40.0 Blood Gas Tidal 500.0 Volume Blood Gas Low 5.0 PEEP Setting Blood Gas ISAAC ORTIZ Critical Value Read Back Blood Gas UP Notified Whom Blood Gas 06/07/2018 4:29:4 Notified Time 5 AM Test 06/07/18 08:18 06/07/18 08:48 06/07/18 12:14 White Blood Count 4.2 #L Red Blood Count 3.76 L Hemoglobin 10.9 L Hematocrit 34.8 L Mean Corpuscular 92.6 Volume Mean Corpuscular 29.0 Hemoglobin Mean Corpuscular 31.3 L Hemoglobin Concen t Red Cell 20.5 H Distribution Width Platelet Count 53 L Mean Platelet 11.5 H Volume Immature 0.200 Granulocytes % Neutrophils % 54.8 Lymphocytes % 28.8 Monocytes % 13.1 H Eosinophils % 2.4 Basophils % 0.7 Nucleated Red 0.0 Blood Cells % Immature 0.010 Granulocytes # Neutrophils # 2.3 Lymphocytes # 1.2 Monocytes # 0.6 Eosinophils # 0.1 Basophils # 0.0 Nucleated Red 0.0 Blood Cells # Sodium Level 140 Potassium Level 4.0 Chloride Level 96 L Carbon Dioxide 30 Level Anion Gap 14 H Blood Urea 18 Nitrogen Creatinine 3.69 H Est Glomerular 16 L Filtrat Rate mL/min Glucose Level 84 # Lactic Acid Level 2.1 *H Calcium Level 9.2 Phosphorus Level 4.4 Magnesium Level 1.9 Bedside Glucose 84 90 Medications Medication Current Medications Propofol 100 ml @ 2.1 mls/hr ONCE STAT IV Last administered on 06/06/18at 09:04; Admin Dose 2.1 MLS/HR; Start 06/06/18 at 08:22; Stop 06/08/18 at 07:59 Albuterol/ Ipratropium (Duoneb) 3 ml Q2H RESP THERAPY PRN NEB SHORTNESS OF BREATH; Start 06/06/18 at 10:30 Acetaminophen (Tylenol Supp) 650 mg Q4H PRN [place] PAIN LEVEL 1-3 OR FEVER; Start 06/06/18 at 10:30 Famotidine (Pepcid Iv) 20 mg DAILY IV Last administered on 06/07/18at 09:12; Ad min Dose 20 MG; Start 06/06/18 at 11:00 Heparin Sodium (Porcine) (Heparin (5000 Units/1ml)) 5,000 unit Q12 SC Last administered on 06/07/18at 09:13; Admin Dose 5,000 UNIT; Start 06/06/18 at 21:00 Acetaminophen/ Hydrocodone Bitart ([place] ()) 1 tab Q6 PRN [place] PAIN LEVEL 1-5; Start 06/06/18 at 10:30 Nitroglycerin (Nitroglycerin (Sl Tab) 0.4 Mg) 1 tab [id number] PRN SL CHEST PAIN; Start 06/06/18 at 10:30 Tiotropium [place] (Spiriva) 1 inh DAILY INH ; Start 06/07/18 at 09:00 Zolpidem Tartrate (Ambien) 5 mg HS PRN PO INSOMNIA; Start 06/06/18 at 21:00 Diagnostic Test (Pha) (Accu-Chek) 1 ea Q4 XX Last administered on 06/07/18 12:40; Admin Dose 1 EA; Start 06/06/18 at 13:00 Aspirin (Aspirin) 81 mg DAILY NGT Last administered on 06/07/18 08:33; Admin Dose 81 MG; Start 06/07/18 at 09:00 Atorvastatin Calcium (Lipitor) 80 mg QHS NGT ; Start 06/07/18 at 21:00 Clopidogrel Bisulfate (plaVIX) 75 mg DAILY NGT Last administered on 06/07/18 08:34; Admin Dose 75 MG; Start 06/07/18 at 09:00 Levetiracetam (Keppra) 500 mg BID NGT Last administered on 06/07/18 08:31; Admin Dose 500 MG; Start 06/07/18 at 09:00 Levothyroxine Sodium (Synthroid) 200 mcg BEFORE BREAKFAST NGT Last administered on 06/07/18 08:16; Admin Dose 200 MCG; Start 06/07/18 at 07:00 Lisinopril (Zestril) 10 mg DAILY NGT Last administered on 06/07/18 08:35; Admin Dose 10 MG; Start 06/07/18 at 09:00 Metoprolol Tartrate (Lopressor) 25 mg BID NGT Last administered on 06/07/18 08:35; Admin Dose 25 MG; Start 06/07/18 at 09:00 Senna (Senokot) 1 tab BID NGT Last administered on 06/07/18 08:34; Admin Dose 1 TAB; Start 06/07/18 at 09:00 Sevelamer Carbonate (Renvela) 0.8 gm WITH MEALS NGT Last administered on 06/07/18 08:16; Admin Dose 0.8 GM; Start 06/07/18 at 07:35 MARGARITO VIVAR MD Jun 07, 2018 13:17
[2018-06-07] MEDS: ATORVASTATIN 80 MG TAB NGT SCH (20:42)
[2018-06-08] VITALS (31 sets, daily range): BP systolic 92–137; BP diastolic 32–76; PULSE 73–87; RESP 13–27
[2018-06-08] MEDS: ACCU-CHEK XX SCH ×6 (01:36→21:00)
[2018-06-08] MEDS: LEVOTHYROXINE 100 MCG TAB NGT SCH (06:53)
[2018-06-08] MEDS: LISINOPRIL 10 MG TAB NGT SCH (09:00)
[2018-06-08] MEDS: TIOTROPIUM 18 MCG CAPSULE INHA DEV INH SCH (09:00)
[2018-06-08] MEDS: METOPROLOL 25 MG TAB NGT SCH ×2 (09:00→22:16)
--- NOTE | 2018-06-08 09:09 | PN ---
DATE: 06/08/2018 SUBJECTIVE: The patient was extubated yesterday. The patient is confused this morning, is not aware of what events happened. No other events noted. No hemoptysis, hematemesis, hematochezia. OBJECTIVE: VITAL SIGNS: Blood pressure is 125/42, respirations 23, pulse 82, temperature 98.6. HEENT: Head is normocephalic. NECK: Supple. HEART: Regular rate. LUNGS: Show diminished breath sounds at the base. ABDOMEN: Soft, nontender to palpation. No rebound or guarding. EXTREMITIES: Negative for clubbing, cyanosis, no edema. DERMATOLOGIC: No rashes. MUSCULOSKELETAL: No joint effusion. NEUROLOGIC: No change in exam. MEDICATIONS: The patient's medications have been reviewed. LABORATORY DATA: From 06/08/2018, was reviewed. IMAGING STUDIES: Reviewed. ASSESSMENT AND PLAN: 1. End-stage renal disease. The patient is scheduled for dialysis today. We will dialyze 3 hours 3 k bath, calcium 2.5. 2. Hypertensive urgency, improved. Etiology in part due to increased intravascular volume. Continu e current blood pressure regimen. Continue ultrafiltration with dialysis. 3. Anemia. Monitor hemoglobin and hematocrit levels loss. Continue Epogen intermittently with dial ysis. 4. 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 Will monitor calcium and phosphorus lev els closely. Continue phosphate binders. 5. Respiratory failure. The patient is status post extubation. Currently stable on nasal cannula. Continue to monitor. Follow up with pulmonary. 6. Acute encephalopathy. Etiology may be multifactorial secondary to seizure, postictal state. The patient remains confused. Continue to monitor. 7. Coronary artery disease. Continue medical management. 8. Dyslipidemia. Continue statin therapy. 9. History of hepato cytosis. 10. History of papillary thyroid carcinoma. 11. History of cardiac arrest. 12. Volume overload. Continue ultrafiltration with hemodialysis. Dictated By: HARVEY LUCIO DO NR/NTS Conf#: [id number] DID#: [id number] CC: MARGARITO VIVAR MD;*EndCC*
[2018-06-08] MEDS: LEVETIRACETAM 500 MG TAB NGT SCH ×2 (09:19→22:16)
[2018-06-08] MEDS: CLOPIDOGREL 75 MG TAB NGT SCH (09:20)
[2018-06-08] MEDS: ASPIRIN 81 MG TAB NGT SCH (09:20)
[2018-06-08] MEDS: SEVELAMER CARBONATE 0.8 GM PKT NGT SCH ×3 (09:21→17:53)
[2018-06-08] MEDS: SENNA TAB NGT SCH ×2 (09:21→22:16)
[2018-06-08] MEDS: FAMOTIDINE 20 MG INJ IV SCH (09:21)
[2018-06-08] MEDS: HEPARIN 5,000 UNIT/1 ML VIAL SC SCH ×2 (09:34→22:25)
--- NOTE | 2018-06-08 09:46 | CONS ---
Assessment/Plan Assessment/Plan Assessment/Plan (Daily) Chest x-ray from today showing cardiomegaly with increasing pulmonary edema. Assessment and recommendations; 1. Patient admitted with respiratory failure due to pulmonary edema and fluid overload with history of end-stage renal disease which is hemodialysis dependent. 2. Underlying seizure disorder. However no overt seizure activity reported during in hospital stay. 3. History of hypothyroidism. 4. Anemia and severe thrombocytopenia. Continue current supportive care. Patient would benefit from another hemodialysis session today. Consultation Date/Type/Reason Admit Date/Time Jun 06, 2018 at 08:42 Initial Consult Date 06/07/18 Type of Consult Pulmonary/critical care Patient's condition is stable. Was successfully extubated yesterday. Patient has remained hemodynamically stable. Also exhibiting stable pulmonary status. Patient however is refusing medications. General exam; middle-aged female, awake and alert. Currently in no distress. Reason for Consultation H ENT exam; supple neck, positive JVD. No lymphadenopathy. Midline trachea. No thyromegaly. Patient is edentulous. Chest exam; diminished but clear breath sounds. S1-S2 audible, no murmurs. Regular rhythm. Abdomen exam; soft, no organomegaly. Bowel sounds audible. Nontender. Extremity exam; no peripheral edema. 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 Requesting Provider: MARGARITO VIVAR MD Date/Time of Note DATE: 06/08/18 TIME: 09:43 Exam/Review of Systems Exam Vitals Vital Signs Date Temp Pulse Resp B/P (MAP) Pulse Ox O2 O2 Flow FiO2 Time Delivery Rate 06/08/18 79 08:00 06/08/18 23 125/42 96 Nasal 4.0 06:00 (69) Cannula 06/08/18 98.6 04:00 06/08/18 27 02:09 Intake and Output 06/07/18 06/07/18 06/08/18 1515:00 23:00 07:00 IntakeIntake Total 131.5 ml 80 ml 140 ml OutputOutput Total 0 ml 0 ml BalanceBalance 131.5 ml 80 ml 140 ml Results Result Diagram: 06/08/18 0330 06/08/18 0330 Results 24hrs Laboratory Tests Test 06/07/18 12:14 06/07/18 16:44 06/07/18 21:16 06/08/18 01:36 Bedside Glucose 90 101 82 100 Test 06/08/18 03:30 06/08/18 05:15 06/08/18 08:21 White Blood Count 4.1 L Red Blood Count 2.81 #L Hemoglobin 9.4 L Hematocrit 27.4 #L Mean Corpuscular 97.5 Volume Mean Corpuscular 33.5 H Hemoglobin Mean Corpuscular 34.3 Hemoglobin Concent Red Cell 22.1 H Distribution Width Platelet Count 70 #L Mean Platelet Volume 12.1 H Immature 0.200 Granulocytes % Neutrophils % 45.2 Lymphocytes % 39.4 Monocytes % 10.8 Eosinophils % 3.4 Basophils % 1.0 Nucleated Red Blood 0.0 Cells % Immature 0.010 Granulocytes # Neutrophils # 1.9 Lymphocytes # 1.6 Monocytes # 0.4 Eosinophils # 0.1 Basophils # 0.0 Nucleated Red Blood 0.0 Cells # Sodium Level 140 Potassium Level 4.1 Chloride Level 98 Carbon Dioxide Level 30 Anion Gap 12 Blood Urea Nitrogen 25 H Creatinine 4.95 #H Est Glomerular 11 L Filtrat Rate mL/min Glucose Level 79 Calcium Level 8.8 Bedside Glucose 84 78 Medications Medication Current Medications Albuterol/ Ipratropium (Duoneb) 3 ml Q2H RESP THERAPY PRN NEB SHORTNESS OF BREATH; Start 06/06/18 at 10:30 Acetaminophen (Tylenol Supp) 650 mg Q4H PRN [place] PAIN LEVEL 1-3 OR FEVER; Start 06/06/18 at 10:30 Famotidine (Pepcid Iv) 20 mg DAILY IV Last administered on 06/08/18at 09:21; Admin Dose 20 MG; Start 06/06/18 at 11:00 Heparin Sodium (Porcine) (Heparin (5000 Units/1ml)) 5,000 unit Q12 SC Last administered on 06/08/18at 09:34; Admin Dose 5,000 UNIT; Start 06/06/18 at 21:00 Acetaminophen/ Hydrocodone Bitart ([place] (10325)) 1 tab Q6 PRN PO PAIN LEVEL 1-5; Start 06/06/18 at 10:30 Nitroglycerin (Nitroglycerin (Sl Tab) 0.4 Mg) 1 tab [id number] PRN SL CHEST PAIN; Start 06/06/18 at 10:30 Tiotropium [place] (Spiriva) 1 inh DAILY INH ; Start 06/07/18 at 09:00 Zolpidem Tartrate (Ambien) 5 mg HS PRN PO INSOMNIA; Start 06/06/18 at 21:00 Diagnostic Test (Pha) (Accu-Chek) 1 ea Q4 XX Last administered on 06/08/18 09:22; Admin Dose 1 EA; Start 06/06/18 at 13:00 Aspirin (Aspirin) 81 mg DAILY NGT Last administered on 06/08/18 09:20; Admin Dose 81 MG; Start 06/07/18 at 09:00 Atorvastatin Calcium (Lipitor) 80 mg QHS NGT Last administered on 06/07/18 20:42; Admin Dose 80 MG; Start 06/07/18 at 21:00 Clopidogrel Bisulfate (plaVIX) 75 mg DAILY NGT Last administered on 06/08/18 09:20; Admin Dose 75 MG; Start 06/07/18 at 09:00 Levetiracetam (Keppra) 500 mg BID NGT Last administered on 06/08/18 09:19; Admin Dose 500 MG; Start 06/07/18 at 09:00 Levothyroxine Sodium (Synthroid) 200 mcg BEFORE BREAKFAST NGT Last administered on 06/08/18 06:53; Admin Dose 200 MCG; Start 06/07/18 at 07:00 Lisinopril (Zestril) 10 mg DAILY NGT Last administered on 06/07/18 08:35; Admin Dose 10 MG; Start 06/07/18 at 09:00 Metoprolol Tartrate (Lopressor) 25 mg BID NGT Last administered on 06/07/18 20:32; Admin Dose 25 MG; Start 06/07/18 at 09:00 Senna (Senokot) 1 tab BID NGT Last administered on 06/08/18 09:21; Admin Dose 1 TAB; Start 06/07/18 at 09:00 Sevelamer Carbonate (Renvela) 0.8 gm WITH MEALS NGT Last administered on 06/08/18 09:21; Admin Dose 0.8 GM; Start 06/07/18 at 07:35 Epoetin Geo-epbx (RETACRIT(esrd)) 10,000 unit MoWeFr@1700 SC ; Start 06/08/18 john crespo 17:00 PATIENCE HASSAN Jun 08, 2018 09:46
--- NOTE | 2018-06-08 09:52 | PN ---
Date/Time of Note Date/Time of Note DATE: 06/08/18 TIME: 09:45 Assessment/Plan VTE Prophylaxis Risk score (from [facility])>0 risk: 3 SCD applied (from [facility]): Yes Pharmacological prophylaxis: heparin Lines/Catheters IV Catheter Type (from [facility] [place] Urinary Cath still in place: No Assessment/Plan Problems: (1) Volume overload Status: Acute Comment: Being dialyzed again to remove excess fluid. Progressing nicely and after dialysis today should be able to be moved out of the intensive care unit. Qualifiers: Hypervolemia type: other Qualified Codes: E87.79 - Other fluid overload (2) End stage renal disease on dialysis due to type 2 diabetes mellitus Status: Chronic Comment: As per nephrology (3) Acute encephalopathy Status: Acute Comment: Clearing. (4) Post-ictal state Status: Resolved (5) DM (diabetes mellitus), type 2 Status: Chronic Comment: Good glycemic control Qualifiers: Diabetes mellitus oil heaterman insulin use: unspecified retirement insulin use status Diabetes mellitus complication status: with kidney complications Diabetes mellitus complication detail: with chronic kidney disease Chronic kidney disease stage: on chronic dialysis Qualified Codes: E11.22 - Type 2 diabetes mellitus with diabetic chronic kidney disease; N18.6 - End stage renal disease; Z99.2 - Dependence on renal dialysis (6) Essential (primary) hypertension Status: Chronic Comment: Adequate control blood pressure (7) Hyperlipidemia Status: Chronic Comment: On aggressive treatment Qualifiers: Hyperlipidemia type: pure hypercholesterolemia Qualified Codes: E78.00 - Pure hypercholesterolemia, unspecified (8) Atherosclerotic heart disease of [place] coronary artery without angina p ectoris Status: Chronic Comment: Awaiting follow-up note from cardiology regarding whether or not were completed with doing her angioplasties Qualifiers: [place] vs. transplanted heart: [place] heart Qualified Codes: I25.10 - Atherosclerotic heart disease of [place] coronary artery without angina pectoris (9) Major depressive disorder, single episode, severe without psychotic features Status: Chronic Comment: Noted and on medications Result Diagram: 06/08/1832906/08/18329 Results 24hrs Laboratory Tests Test 06/07/18 12:14 06/07/18 16:44 06/07/18 21:16 06/08/18 01:36 Bedside Glucose 90 101 82 100 Test 06/08/18 03:30 06/08/18 05:15 06/08/18 08:21 White Blood Count 4.1 L Red Blood Count 2.81 #L Hemoglobin 9.4 L Hematocrit 27.4 #L Mean Corpuscular 97.5 Volume Mean Corpuscular 33.5 H Hemoglobin Mean Corpuscular 34.3 Hemoglobin Concent Red Cell 22.1 H Distribution Width Platelet Count 70 #L Mean Platelet Volume 12.1 H Immature 0.200 Granulocytes % Neutrophils % 45.2 Lymphocytes % 39.4 Monocytes % 10.8 Eosinophils % 3.4 Basophils % 1.0 Nucleated Red Blood 0.0 Cells % Immature 0.010 Granulocytes # Neutrophils # 1.9 Lymphocytes # 1.6 Monocytes # 0.4 Eosinophils # 0.1 Basophils # 0.0 Nucleated Red Blood 0.0 Cells # Sodium Level 140 Potassium Level 4.1 Chloride Level 98 Carbon Dioxide Level 30 Anion Gap 12 Blood Urea Nitrogen 25 H Creatinine 4.95 #H Est Glomerular 11 L Filtrat Rate mL/min Glucose Level 79 Calcium Level 8.8 Bedside Glucose 84 78 Subjective 24 Hr Interval Summary Free Text/Dictation She is more awake today than she was yesterday reports that she does not know what happened Constitutional: no complaints Respiratory: no complaints Cardiovascular: no complaints Gastrointestinal: no complaints Exam/Review of Systems Exam Vitals Vital Signs Date Temp Pulse Resp B/P (MAP) Pulse Ox O2 O2 Flow FiO2 Time Delivery Rate 06/08/18 79 08:00 06/08/18 23 125/42 96 Nasal 4.0 06:00 (69) Cannula 06/08/18 98.6 04:00 06/08/18 27 02:09 Intake and Output 06/07/18 06/07/18 06/08/18 1515:00 23:00 07:00 IntakeIntake Total 131.5 ml 80 ml 140 ml OutputOutput Total 0 ml 0 ml BalanceBalance 131.5 ml 80 ml 140 ml Constitutional: alert, oriented Respiratory: clear to auscultation, normal air movement Cardiovascular: regular rate and rhythm, nl pulses Gastrointestinal: soft, nl liver, spleen, non-tender Results Results 24hrs Laboratory Tests Test 06/07/18 12:14 06/07/18 16:44 06/07/18 21:16 06/08/18 01:36 Bedside Glucose 90 101 82 100 Test 06/08/18 03:30 06/08/18 05:15 06/08/18 08:21 White Blood Count 4.1 L Red Blood Count 2.81 #L Hemoglobin 9.4 L Hematocrit 27.4 #L Mean Corpuscular 97.5 Volume Mean Corpuscular 33.5 H Hemoglobin Mean Corpuscular 34.3 Hemoglobin Concent Red Cell 22.1 H Distribution Width Platelet Count 70 #L Mean Platelet Volume 12.1 H Immature 0.200 Granulocytes % Neutrophils % 45.2 Lymphocytes % 39.4 Monocytes % 10.8 Eosinophils % 3.4 Basophils % 1.0 Nucleated Red Blood 0.0 Cells % Immature 0.010 Granulocytes # Neutrophils # 1.9 Lymphocytes # 1.6 Monocytes # 0.4 Eosinophils # 0.1 Basophils # 0.0 Nucleated Red Blood 0.0 Cells # Sodium Level 140 Potassium Level 4.1 Chloride Level 98 Carbon Dioxide Level 30 Anion Gap 12 Blood Urea Nitrogen 25 H Creatinine 4.95 #H Est Glomerular 11 L Filtrat Rate mL/min Glucose Level 79 Calcium Level 8.8 Bedside Glucose 84 78 Medications Medication Current Medications Albuterol/ Ipratropium (Duoneb) 3 ml Q2H RESP THERAPY PRN NEB SHORTNESS OF [place] ATH; Start 06/06/18 at 10:30 Acetaminophen (Tylenol Supp) 650 mg Q4H PRN [place] PAIN LEVEL 1-3 OR FEVER; Start 06/06/18 at 10:30 Famotidine (Pepcid Iv) 20 mg DAILY IV Last administered on 06/08/18at 09:21; Admin Dose 20 MG; Start 06/06/18 at 11:00 Heparin Sodium (Porcine) (Heparin (5000 Units/1ml)) 5,000 unit Q12 SC Last administered on 06/08/18at 09:34; Admin Dose 5,000 UNIT; Start 06/06/18 at 21:00 Acetaminophen/ Hydrocodone Bitart ([place] (10325)) 1 tab Q6 PRN PO PAIN LEVEL 1-5; Start 06/06/18 at 10:30 Nitroglycerin (Nitroglycerin (Sl Tab) 0.4 Mg) 1 tab [id number] PRN SL CHEST PAIN; Start 06/06/18 at 10:30 Tiotropium [place] (Spiriva) 1 inh DAILY INH ; Start 06/07/18 at 09:00 Zolpidem Tartrate (Ambien) 5 mg HS PRN PO INSOMNIA; Start 06/06/18 at 21:00 Diagnostic Test (Pha) (Accu-Chek) 1 ea Q4 XX Last administered on 06/08/18 09:22; Admin Dose 1 EA; Start 06/06/18 at 13:00 Aspirin (Aspirin) 81 mg DAILY NGT Last administered on 06/08/18 09:20; Admin Dose 81 MG; Start 06/07/18 at 09:00 Atorvastatin Calcium (Lipitor) 80 mg QHS NGT Last administered on 06/07/18 20:42; Admin Dose 80 MG; Start 06/07/18 at 21:00 Clopidogrel Bisulfate (plaVIX) 75 mg DAILY NGT Last administered on 06/08/18 09:20; Admin Dose 75 MG; Start 06/07/18 at 09:00 Levetiracetam (Keppra) 500 mg BID NGT Last administered on 06/08/18 09:19; Admin Dose 500 MG; Start 06/07/18 at 09:00 Levothyroxine Sodium (Synthroid) 200 mcg BEFORE BREAKFAST NGT Last administered on 06/08/18 06:53; Admin Dose 200 MCG; Start 06/07/18 at 07:00 Lisinopril (Zestril) 10 mg DAILY NGT Last administered on 06/07/18 08:35; A dmin Dose 10 MG; Start 06/07/18 at 09:00 Metoprolol Tartrate (Lopressor) 25 mg BID NGT Last administered on 06/07/18 20:32; Admin Dose 25 MG; Start 06/07/18 at 09:00 Senna (Senokot) 1 tab BID NGT Last administered on 06/08/18 09:21; Admin Dose 1 TAB; Start 06/07/18 at 09:00 Sevelamer Carbonate (Renvela) 0.8 gm WITH MEALS NGT Last administered on 06/08/18 09:21; Admin Dose 0.8 GM; Start 06/07/18 at 07:35 Epoetin Geo-epbx (RETACRIT(esrd)) 10,000 unit MoWeFr@1700 SC ; Start 06/08/18 at 17:00 MARGARITO VIVAR MD Jun 08, 2018 09:52
--- NOTE | 2018-06-08 12:49 | CONS ---
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 End-stage renal disease on hemodialysis -Continue dual antiplatelet therapy, statin therapy, beta-mariaelena as heart rate and blood pressure permits, absolute reduction with JIMENEZ inhibitor as renal function and blood pressure permits -Recheck echocardiogram -Fluid management via hemodialysis as per nephrology Consultation Date/Type/Reason Admit Date/Time Jun 06, 2018 at 08:42 Initial Consult Date 06/07/18 Type of Consult Cardiology Requesting Provider: MARGARITO VIVAR MD Date/Time of Note DATE: 06/08/18 TIME: 12:46 24 HR Interval Summary Free Text/Dictation Denies shortness of breath currently, chest pain or palpitations Exam/Review of Systems Vital Signs Vitals Vital Signs Date Temp Pulse Resp B/P (MAP) Pulse Ox O2 O2 Flow FiO2 Time Delivery Rate 06/08/18 80 12:30 06/08/18 21 114/49 100 Nasal 3.0 10:30 (70) Cannula 06/08/18 98.4 08:00 06/08/18 27 02:09 Intake and Output 06/07/18 06/07/18 06/08/18 1515:00 23:00 07:00 IntakeIntake Total 131.5 ml 80 ml 140 ml OutputOutput Total 0 ml 0 ml BalanceBalance 131.5 ml 80 ml 140 ml Exam Constitutional: alert, oriented (No apparent distress, undergoing hemodialysis) Head: normocephalic Respiratory: other (Coarse breath sounds bilaterally, no wheezing) Cardiovascular: regular rate and rhythm (S1-S2 heard) Gastrointestinal: soft, non-tender, bowel sounds Extremities: edema Labs Result Diagram: 06/08/18 0330 06/08/18 0330 Results 24hrs Laboratory Tests Test 06/07/18 16:44 06/07/18 21:16 06/08/18 01:36 06/08/18 03:30 Bedside Glucose 101 82 100 White Blood Count 4.1 L Red Blood Count 2.81 #L Hemoglobin 9.4 L Hematocrit 27.4 #L Mean Corpuscular 97.5 Volume Mean Corpuscular 33.5 H Hemoglobin Mean Corpuscular 34.3 Hemoglobin Concent Red Cell 22.1 H Distribution Width Platelet Count 70 #L Mean Platelet Volume 12.1 H Immature 0.200 Granulocytes % Neutrophils % 45.2 Lymphocytes % 39.4 Monocytes % 10.8 Eosinophils % 3.4 Basophils % 1.0 Nucleated Red Blood 0.0 Cells % Immature 0.010 Granulocytes # Neutrophils # 1.9 Lymphocytes # 1.6 Monocytes # 0.4 Eosinophils # 0.1 Basophils # 0.0 Nucleated Red Blood 0.0 Cells # Sodium Level 140 Potassium Level 4.1 Chloride Level 98 Carbon Dioxide Level 30 Anion Gap 12 Blood Urea Nitrogen 25 H Creatinine 4.95 #H Est Glomerular 11 L Filtrat Rate mL/min Glucose Level 79 Calcium Level 8.8 Test 06/08/18 05:15 06/08/18 08:21 Bedside Glucose 84 78 Medications Medications Current Medications Albuterol/ Ipratropium (Duoneb) 3 ml Q2H RESP THERAPY PRN NEB SHORTNESS OF BREATH; Start 06/06/18 at 10:30 Acetaminophen (Tylenol Supp) 650 mg Q4H PRN [place] PAIN LEVEL 1-3 OR FEVER; Start 06/06/18 at 10:30 Heparin Sodium (Porcine) (Heparin (5000 Units/1ml)) 5,000 unit Q12 SC Last administered on 06/08/18at 09:34; Admin Dose 5,000 UNIT; Start 06/06/18 at 21:00 Acetaminophen/ Hydrocodone Bitart ([place] (10/325)) 1 tab Q6 PRN [place] PAIN LEVEL 1-5; Start 06/06/18 at 10:30 Nitroglycerin (Nitroglycerin (Sl Tab) 0.4 Mg) 1 tab [id number] PRN SL CHEST PAIN; Start 06/06/18 at 10:30 Tiotropium [place] (Spiriva) 1 inh DAILY INH ; Start 06/07/18 at 09:00 Zolpidem Tartrate (Ambien) 5 mg HS PRN PO INSOMNIA; Start 06/06/18 at 21:00 Diagnostic Test (Pha) (Accu-Chek) 1 ea Q4 XX Last administered on 06/08/18at 09:22; Admin Dose 1 EA; Start 06/06/18 at 13:00 Aspirin (Aspirin) 81 mg DAILY NGT Last administered on 06/08/18at 09:20; Admin Dose 81 MG; Start 06/07/18 at 09:00 Atorvastatin Calcium (Lipitor) 80 mg QHS NGT Last administered on 06/07/18 20:42; Admin Dose 80 MG; Start 06/07/18 at 21:00 Clopidogrel Bisulfate (plaVIX) 75 mg DAILY NGT Last administered on 06/08/18 09:20; Admin Dose 75 MG; Start 06/07/18 at 09:00 Levetiracetam (Keppra) 500 mg BID NGT Last administered on 06/08/18 09:19; Admin Dose 500 MG; Start 06/07/18 at 09:00 Levothyroxine Sodium (Synthroid) 200 mcg BEFORE BREAKFAST NGT Last administered on 06/08/18 06:53; Admin Dose 200 MCG; Start 06/07/18 at 07:00 Lisinopril (Zestril) 10 mg DAILY NGT Last administered on 06/07/18 08:35; Admin Dose 10 MG; Start 06/07/18 at 09:00 Metoprolol Tartrate (Lopressor) 25 mg BID NGT Last administered on 06/07/18 20:32; Admin Dose 25 MG; Start 06/07/18 at 09:00 Senna (Senokot) 1 tab BID NGT Last administered on 06/08/18 09:21; Admin Dose 1 TAB; Start 06/07/18 at 09:00 Sevelamer Carbonate (Renvela) 0.8 gm WITH MEALS NGT Last administered on 06/08/18 09:21; Admin Dose 0.8 GM; Start 06/07/18 at 07:35 Epoetin Geo-epbx (RETACRIT(esrd)) 10,000 unit MoWeFr@1700 SC ; Start 06/08/18 at 17:00 Famotidine (Pepcid) 20 mg DAILY NGT ; Start 06/09/18 at 09:00 Heri Schaefer DO Jun 08, 2018 12:49
[2018-06-08] MEDS: EPOETIN ALFA-EPBX (ESRD) 10,000 UNIT/ML VIAL SC SCH (17:54)
[2018-06-08] MEDS: ZOLPIDEM 5 MG TAB PO PRN (22:16)
[2018-06-08] MEDS: ATORVASTATIN 80 MG TAB NGT SCH (22:16)
[2018-06-09] VITALS (12 sets, daily range): BP systolic 117–129; BP diastolic 59–72; PULSE 79–97; RESP 18–20
[2018-06-09] MEDS: ACCU-CHEK XX SCH ×6 (01:00→21:00)
[2018-06-09] MEDS: LEVOTHYROXINE 100 MCG TAB NGT SCH (06:29)
--- NOTE | 2018-06-09 08:44 | PN ---
DATE: 06/09/2018 SUBJECTIVE: The patient is stable, transferred from intensive care unit to telemetry. The patient h ad hemodialysis yesterday and tolerated well. No other events noted. OBJECTIVE: VITAL SIGNS: Blood pressure is 121/71, pulse 82, respirations 18, temperature 98.0. HEENT: Head is normocephalic. NECK: Supple. HEART: Regular rate. LUNGS: Show diminished breath sounds at the base. ABDOMEN: Soft, nontender to palpation without rebound or guarding. EXTREMITIES: Negative for clubbing, cyanosis, no edema. DERMATOLOGIC: No rashes. MUSCULOSKELETAL: No joint effusion. NEUROLOGIC: No change in exam. MEDICATIONS: Reviewed. LABORATORY DATA: Reviewed. IMAGING STUDIES: Reviewed. ASSESSMENT AND PLAN: 1. End-stage renal disease. The patient had hemodialysis yesterday, tolerated well. Plan is for di alysis again tomorrow. 2. Hypertensive urgency, improved. Continue current blood pressure regimen. Continue ultrafiltrati on with hemodialysis. 3. Anemia. Continue to monitor hemoglobin and hematocrit levels. We will give Epogen intermittentl y. 4. 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 Continue to monitor calcium and phospho jv levels. Continue phosphate binders. 5. Respiratory failure, status post extubation. The patient is currently stable on nasal cannula. Continue to monitor. 6. Encephalopathy. Etiology may be multifactorial secondary to postictal state, continue to monitor mental status is improving. 7. Coronary artery disease. Continue current treatment plan. Follow up with cardiology. 8. Dyslipidemia. Continue statin therapy. 9. History of papillary thyroid carcinoma. 10. History of cardiac arrest. 11. Volume overload, improving. Dictated By: HARVEY LUCIO DO NR/NTS Conf#: [id number] DID#: [id number] CC: MARGARITO VIVAR MD; JJ SINGER M.D.;*EndCC*
[2018-06-09] MEDS: CLOPIDOGREL 75 MG TAB NGT SCH (08:56)
[2018-06-09] MEDS: SENNA TAB NGT SCH ×2 (08:56→20:42)
[2018-06-09] MEDS: SEVELAMER CARBONATE 0.8 GM PKT NGT SCH ×3 (08:56→17:34)
[2018-06-09] MEDS: LEVETIRACETAM 500 MG TAB NGT SCH ×2 (08:56→21:00)
[2018-06-09] MEDS: ASPIRIN 81 MG TAB NGT SCH (08:56)
[2018-06-09] MEDS: FAMOTIDINE 20 MG TAB NGT SCH (08:56)
[2018-06-09] MEDS: LISINOPRIL 10 MG TAB NGT SCH (08:58)
[2018-06-09] MEDS: TIOTROPIUM 18 MCG CAPSULE INHA DEV INH SCH (08:58)
[2018-06-09] MEDS: METOPROLOL 25 MG TAB NGT SCH (08:58)
[2018-06-09] MEDS: HEPARIN 5,000 UNIT/1 ML VIAL SC SCH ×2 (09:07→20:48)
--- NOTE | 2018-06-09 12:50 | CONS ---
Consult Date/Type/Reason Admit Date/Time Jun 06, 2018 at 08:42 Initial Consult Date 06/07/18 Type of Consult Pulmonary Requesting Provider: MARGARITO VIVAR MD Date/Time of Note DATE: 06/09/18 TIME: 12:15 Subjective Remains stable following extubation awake alert this morning somewhat anxious but no respiratory distress on room air. Objective Vital Signs Date Temp Pulse Resp B/P (MAP) Pulse Ox O2 O2 Flow FiO2 Time Delivery Rate 06/09/18 98.0 90 20 117/72 97 12:12 (87) 06/09/18 Room Air 04:08 06/08/18 2.0 18:22 06/08/18 02:09 Intake and Output 06/08/18 06/08/18 06/09/18 1515:00 23:00 07:00 IntakeIntake Total 720 ml 300 ml OutputOutput Total 2400 ml BalanceBalance -1680 ml 300 ml Exam GENERAL: Well-nourished well-developed lady comfortable on room air. No respiratory distress. VITAL SIGNS: per chart NECK: Supple. No JVD or lymphadenopathy. CARDIAC EXAM: S1, S2. No added sounds or murmurs. CHEST: clear bilaterally, No added sounds, rales or wheezes ABDOMEN: Soft, nontender. No guarding or rebound. EXTREMITIES: No cyanosis, clubbing or edema. NEUROLOGIC: Generalized weakness. No focal deficits. Vent Setting Ventilator Support Mode: CPAP, PS Fraction of Inspired Oxygen pe: 27 Positive End Expiratory Pressu: 5.0 Results/Medications Result Diagram: 06/08/18 0330 06/08/18 0330 Results 24 hrs Laboratory Tests Test 06/08/18 14:06 06/08/18 14:25 06/08/18 14:55 06/08/18 15:20 Bedside Glucose 66 L 76 94 124 Test 06/08/18 17:55 06/08/18 22:28 06/09/18 01:12 06/09/18 06:27 Bedside Glucose 148 96 147 123 Test 06/09/18 08:20 Bedside Glucose 115 Medications Current Medications Albuterol/ Ipratropium (Duoneb) 3 ml Q2H RESP THERAPY PRN NEB SHORTNESS OF BREATH; Start 06/06/18 at 10:30 Acetaminophen (Tylenol Supp) 650 mg Q4H PRN [place] PAIN LEVEL 1-3 OR FEVER; Start 06/06/18 at 10:30 Heparin Sodium (Porcine) (Heparin (5000 Units/1ml)) 5,000 unit Q12 SC Last administered on 06/09/18 09:07; Admin Dose 5,000 UNIT; Start 06/06/18 at 21:00 Acetaminophen/ Hydrocodone Bitart ([place] (10/325)) 1 tab Q6 PRN PO PAIN LEVEL 1-5; Start 06/06/18 at 10:30 Nitroglycerin (Nitroglycerin (Sl Tab) 0.4 Mg) 1 tab [id number] PRN SL CHEST PAIN; Start 06/06/18 at 10:30 Tiotropium [place] (Spiriva) 1 inh DAILY INH Last administered on 06/09/18 08:58; Admin Dose 1 INH; Start 06/07/18 at 09:00 Zolpidem Tartrate (Ambien) 5 mg HS PRN PO INSOMNIA Last administered on 06/08/18 22:16; Admin Dose 5 MG; Start 06/06/18 at 21:00 Diagnostic Test (Pha) (Accu-Chek) 1 ea Q4 XX Last administered on 06/09/18 08:47; Admin Dose 1 EA; Start 06/06/18 at 13:00 Aspirin (Aspirin) 81 mg DAILY NGT Last administered on 06/09/18 08:56; Admin Dose 81 MG; Start 06/07/18 at 09:00 Atorvastatin Calcium (Lipitor) 80 mg QHS NGT Last administered on 06/08/18 22:16; Admin Dose 80 MG; Start 06/07/18 at 21:00 Clopidogrel Bisulfate (plaVIX) 75 mg DAILY NGT Last administered on 06/09/18 08:56; Admin Dose 75 MG; Start 06/07/18 at 09:00 Levetiracetam (Keppra) 500 mg BID NGT Last administered on 06/09/18 08:56; Admin Dose 500 MG; Start 06/07/18 at 09:00 Levothyroxine Sodium (Synthroid) 200 mcg BEFORE BREAKFAST NGT Last administe red on 06/09/18 06:29; Admin Dose 200 MCG; Start 06/07/18 at 07:00 Lisinopril (Zestril) 10 mg DAILY NGT Last administered on 06/09/18 08:58; Admin Dose 10 MG; Start 06/07/18 at 09:00 Metoprolol Tartrate (Lopressor) 25 mg BID NGT Last administered on 06/09/18 08:58; Admin Dose 25 MG; Start 06/07/18 at 09:00 Senna (Senokot) 1 tab BID NGT Last administered on 06/09/18 08:56; Admin Dose 1 TAB; Start 06/07/18 at 09:00 Sevelamer Carbonate (Renvela) 0.8 gm WITH MEALS NGT Last administered on 08:56; Admin Dose 0.8 GM; Start 06/07/18 at 07:35 Epoetin Geo-epbx (RETACRIT(esrd)) 10,000 unit MoWeFr@1700 SC Last administered on 06/08/18 17:54; Admin Dose 10,000 UNIT; Start 06/08/18 at 17:00 Famotidine (Pepcid) 20 mg DAILY NGT Last administered on 06/09/18 08:56; Admin Dose 20 MG; Start 06/09/18 at 09:00 Assessment/Plan Hospital Course (Demo Recall) Assessment 1. Status post acute seizure in a patient with a known seizure history. 2. Status post acute hypoxic respiratory failure likely secondary to volume overload 3. End-stage renal failure on hemodialysis 4. Thrombocytopenia Plan 1. Continue O2 as needed 2. Encourage out of bed 3. Seizure medications and precautions 4. Consider outpatient sleep study Consider transfer to [facility] and [place] planning. ISABELA PATEL MD, [facility] Jun 09, 2018 12:50
--- NOTE | 2018-06-09 13:40 | RADRPT ---
Echocardiogram Report Patient Name: MARINA CALDERONPatient ID: [id number] : 1965 (53y 1m)Study Date: 06/08/2018 2:24:44 PM Gender: FAccession #: [id number] Tech: Cecilio Woodall RDCS Location: [facility] Ref.Physician: HERI SCHAEFER Height(Cm): BSA: Weight(Kg): Quality: AdequateAccount #: Procedures: Echocardiographic Report: Transthoracic echocardiogram with complete 2D, M-Mode, and doppler examination. Indications: Evaluate Left Ventricular function. Measurements: 2D/M Mode Doppler Measurement Value Normal Range Measurement Value Normal Range LVIDd 2D 5.5 [ 3.8 - 5.2 ] cm AV Peak Francisco J 1.4 [ 100.0 - 170.0 ] cm/sec LVIDs 2D 3.4 [ 2.2 - 3.5 ] cm AV Peak PG 8.0 [ 2.0 - 9.0 ] mmHg LVPWd 2D 1.5 [ 0.6 - 0.9 ] cm LVOT Peak Francisco J 1.0 [ 70.0 - 110.0 ] cm/sec IVSd 2D 1.3 [ 0.6 - 0.9 ] cm LVOT Peak PG 4.0 [ 2.0 - 6.0 ] mmHg AoR Diam 2D 2.7 [ 2.3 - 3.1 ] cm MV E Peak Francisco J 1.1 [ 60.0 - 130.0 ] cm/sec EDV 2D 146.0 [ 46.0 - 106.0 ] ml MV A Peak Francisco J 0.6 [ 100.0 - 120.0 ] cm/sec ESV 2D 48.1 [ 14.0 - 42.0 ] ml MV E/A 1.9 [ 0.8 - 1.5 ] ratio EF 2D 67.1 [ 54.0 - 74.0 ] percent MV Decel Time 130 [ 104 - 258 ] msec LA Dimen 2D 4.9 [ 2.7 - 3.8 ] cm Lat E` Francisco J 0.1 [ 10.0 - 15.0 ] cm/sec Lateral E/E` 20.5 [ 1.0 - 2.0 ] ratio MV E/A 1.9 [ 0.8 - 1.5 ] ratio TR Peak Francisco J 2.7 [ 100.0 - 280.0 ] cm/sec TR Peak PG 29.0 mmHg RVSP 44.0 [ 10.0 - 36.0 ] mmHg RA Pressure 15.0 mmHg Findings: Left Ventricle: Normal left ventricular cavity size. Mild concentric left ventricular hypertrophy. Mild to moderate left ventricular systolic dysfunction. Ejection fraction is visually estimated at 40 %. Tissue Doppler/Mitral Doppler indices are consistent with pseudonormalization with mildly elevated left atrial pressure (Stage II diastolic dysfunction). Right Ventricle: Normal right ventricular size. Normal right ventricular systolic function. Left Atrium: There is moderate enlargement of left atrium. Right Atrium: The right atrium is normal in size. Mitral Valve: Mitral valve leaflets appear mildly thickened. Mild mitral annular calcification. Moderate mitral valve regurgitation. Aortic Valve: No significant aortic stenosis or insufficiency. Aortic cusps appear mildly calcified. Tricuspid Valve: Normal appearance of the tricuspid valve. Estimated peak PA systolic pressure 44 mmHg. There is mild tricuspid regurgitation. Pulmonic Valve: Normal pulmonic valve appearance. Pericardium: Normal pericardium with no significant pericardial effusion. Aorta: Normal aortic root. IVC: Dilated IVC without respiratory collapse consistent with elevated right atrial pressure. Conclusions: Normal left ventricular cavity size. Mild concentric left ventricular hypertrophy. Mild to moderate left ventricular systolic dysfunction. Ejection fraction is visually estimated at 40 %. Tissue Doppler/Mitral Doppler indices are consistent with pseudonormalization with mildly elevated left atrial pressure (Stage II diastolic dysfunction). Normal right ventricular size. Normal right ventricular systolic function. There is moderate enlargement of left atrium. The right atrium is normal in size. Moderate mitral valve regurgitation. No significant aortic stenosis or insufficiency. Estimated peak PA systolic pressure 44 mmHg. There is mild tricuspid regurgitation. Normal pericardium with no significant pericardial effusion. Electronically Signed By: Heri Schaefer 2018-06-09 13:40:24 PDT
--- NOTE | 2018-06-09 14:03 | CONS ---
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 The angiogram I performed prior to that in approximately November 2017 with patent LAD, circumflex was a small caliber vessel and diseased, not amendable to percutaneous coronary intervention and a complete occlusion of the RCA which was recently fixed. I have requested the films from [facility] but based on the history, I do not think any further for percutaneous coronary intervention is necessary at the current time -Fluid management via hemodialysis as per nephrology Consultation Date/Type/Reason Admit Date/Time Jun 06, 2018 at 08:42 Initial Consult Date 06/07/18 Type of Consult Cardiology Requesting Provider: MARGARITO VIVAR MD Date/Time of Note DATE: 06/09/18 TIME: 13:59 24 HR Interval Summary Free Text/Dictation Denies current shortness of breath, chest pain or palpitations Exam/Review of Systems Vital Signs Vitals Vital Signs Date Temp Pulse Resp B/P (MAP) Pulse Ox O2 O2 Flow FiO2 Time Delivery Rate 06/09/18 98.0 90 20 117/72 97 12:12 (87) 06/09/18 Room Air 04:08 06/08/18 2.0 18:22 06/08/18 27 02:09 Intake and Output 06/08/18 06/08/18 06/09/18 1515:00 23:00 07:00 IntakeIntake Total 720 ml 300 ml OutputOutput Total 2400 ml BalanceBalance -1680 ml 300 ml Exam Constitutional: alert, oriented (No apparent distress) Head: normocephalic Respiratory: other (Coarse breath sounds bilaterally, no wheezing) Cardiovascular: regular rate and rhythm (S1-S2 heard) Gastrointestinal: soft, non-tender, bowel sounds Extremities: edema Labs Result Diagram: 06/08/18 03306/08/18 0330 Results 24hrs Laboratory Tests Test 06/08/18 14:06 06/08/18 14:25 06/08/18 14:55 06/08/18 15:20 Bedside Glucose 66 L 76 94 124 Test 06/08/18 17:55 06/08/18 22:28 06/09/18 01:12 06/09/18 06:27 Bedside Glucose 148 96 147 123 Test 06/09/18 08:20 06/09/18 13:01 Bedside Glucose 115 95 Medications Medications Current Medications Albuterol/ Ipratropium (Duoneb) 3 ml Q2H RESP THERAPY PRN NEB SHORTNESS OF BREATH; Start 06/06/18 at 10:30 Acetaminophen (Tylenol Supp) 650 mg Q4H PRN [place] PAIN LEVEL 1-3 OR FEVER; Start 06/06/18 at 10:30 Heparin Sodium (Porcine) (Heparin (5000 Units/1ml)) 5,000 unit Q12 SC Last administered on 06/09/18 09:07; Admin Dose 5,000 UNIT; Start 06/06/18 at 21:00 Acetaminophen/ Hydrocodone Bitart ([place] (10325)) 1 tab Q6 PRN PO PAIN LEVEL 1-5; Start 06/06/18 at 10:30 Nitroglycerin (Nitroglycerin (Sl Tab) 0.4 Mg) 1 tab [id number] PRN SL CHEST PAIN; Start 06/06/18 at 10:30 Tiotropium [place] (Spiriva) 1 inh DAILY INH Last administered on 06/09/18 08:58; Admin Dose 1 INH; Start 06/07/18 at 09:00 Zolpidem Tartrate (Ambien) 5 mg HS PRN PO INSOMNIA Last administered on 06/08/18 22:16; Admin Dose 5 MG; Start 06/06/18 at 21:00 Diagnostic Test (Pha) (Accu-Chek) 1 ea Q4 XX Last administered on 06/09/18 13:02; Admin Dose 1 EA; Start 06/06/18 at 13:00 Aspirin (Aspirin) 81 mg DAILY NGT Last administered on 06/09/18 08:56; Admin Dose 81 MG; Start 06/07/18 at 09:00 Atorvastatin Calcium (Lipitor) 80 mg QHS NGT Last administered on 06/08/18 22:16; Admin Dose 80 MG; Start 06/07/18 at 21:00 Clopidogrel Bisulfate (plaVIX) 75 mg DAILY NGT Last administered on 06/09/18 08:56; Admin Dose 75 MG; Start 06/07/18 at 09:00 Levetiracetam (Keppra) 500 mg BID NGT Last administered on 06/09/18 08:56; Admin Dose 500 MG; Start 06/07/18 at 09:00 Levothyroxine Sodium (Synthroid) 200 mcg BEFORE BREAKFAST NGT Last administered on 06/09/18 06:29; Admin Dose 200 MCG; Start 06/07/18 at 07:00 Lisinopril (Zestril) 10 mg DAILY NGT Last administered on 06/09/18 08:58; Admin Dose 10 MG; Start 06/07/18 at 09:00 Metoprolol Tartrate (Lopressor) 25 mg BID NGT Last administered on 06/09/18 08:58; Admin Dose 25 MG; Start 06/07/18 at 09:00 Senna (Senokot) 1 tab BID NGT Last administered on 06/09/18 08:56; Admin Dose 1 TAB; Start 06/07/18 at 09:00 Sevelamer Carbonate (Renvela) 0.8 gm WITH MEALS NGT Last administered on 06/09/18 08:56; Admin Dose 0.8 GM; Start 06/07/18 at 07:35 Epoetin Geo-epbx (RETACRIT(esrd)) 10,000 unit MoWeFr@1700 SC Last administered on 06/08/18 17:54; Admin Dose 10,000 UNIT; Start 06/08/18 at 17:00 Famotidine (Pepcid) 20 mg DAILY NGT Last administered on 06/09/18 08:56; Admin Dose 20 MG; Start 06/09/18 at 09:00 Heri Schaefer DO Jun 09, 2018 14:03
[2018-06-09] MEDS: ATORVASTATIN 80 MG TAB NGT SCH (20:43)
[2018-06-09] MEDS: METOPROLOL (XL) 25 MG TAB PO SCH (20:43)
[2018-06-09] MEDS: ZOLPIDEM 5 MG TAB PO PRN (20:50)
--- NOTE | 2018-06-09 21:33 | PN ---
Date/Time of Note Date/Time of Note DATE: 06/09/18 TIME: 21:15 Assessment/Plan VTE Prophylaxis Risk score (from Ns)>0 risk: 2 SCD applied (from Ns): Yes Pharmacological prophylaxis: heparin Lines/Catheters IV Catheter Type (from Nrsg): Mid Line Central line still needed: Yes Urinary Cath still in place: No Assessment/Plan Problems: (1) End stage kidney disease Status: Chronic Comment: HD per nephrology (2) Acute encephalopathy Status: Resolved (3) DM (diabetes mellitus), type 2 Status: Chronic Comment: Good glycemic control Qualifiers: Diabetes mellitus terminal block assembler insulin use: unspecified penitentiary insulin use status Diabetes mellitus complication status: with kidney complications Diabetes mellitus complication detail: with chronic kidney disease Chronic kidney disease stage: on chronic dialysis Qualified Codes: E11.22 - Type 2 diabetes mellitus with diabetic chronic kidney disease; N18.6 - End stage renal disease; Z99.2 - Dependence on renal dialysis (4) Acute respiratory failure Status: Resolved Comment: Tolerating extubation Qualifiers: Respiratory failure complication: hypoxia Qualified Codes: J96.01 - Acute respiratory failure with hypoxia (5) Atherosclerotic heart disease of [place] coronary artery without angina pectoris Status: Chronic Comment: Status post intervention at [facility]. No acute issues at this time. Qualifiers: [place] vs. transplanted heart: [place] heart Qualified Codes: I25.10 - Atherosclerotic heart disease of [place] coronary artery without angina pectoris (6) Congestive heart failure Status: Chronic Comment: Management per cardiology (7) Essential (primary) hypertension Status: Chronic Comment: Good control Result Diagram: 06/08/18 0330 06/08/18 0330 Results 24hrs Laboratory Tests Test 06/08/18 22:28 06/09/18 01:12 06/09/18 06:27 06/09/18 08:20 Bedside Glucose 96 147 123 115 Test 06/09/18 13:01 06/09/18 17:33 06/09/18 20:33 Bedside Glucose 95 83 73 Subjective 24 Hr Interval Summary Free Text/Dictation Feeling tired but overall better. Transferred from ICU to Telemetry. Exam/Review of Systems Exam Vitals Vital Signs Date Temp Pulse Resp B/P (MAP) Pulse Ox O2 O2 Flow FiO2 Time Delivery Rate 06/09/18 96 20:01 06/09/18 98.3 19 126/59 95 19:48 (81) 06/09/18 Room Air 04:08 06/08/18 2.0 18:22 06/08/18 02:09 Intake and Output 06/08/18 06/08/18 06/09/18 1515:00 23:00 07:00 IntakeIntake Total 720 ml 300 ml OutputOutput Total 2400 ml BalanceBalance -1680 ml 300 ml Constitutional: alert, oriented, well developed Neck: supple Respiratory: clear to auscultation Cardiovascular: regular rate and rhythm Gastrointestinal: soft Musculoskeletal: nl extremities to inspection, other (LUE IV access) Extremities: edema (none) Neurological: confused (resolved) Results Results 24hrs Laboratory Tests Test 06/08/18 22:28 06/09/18 01:12 06/09/18 06:27 06/09/18 08:20 Bedside Glucose 96 147 123 115 Test 06/09/18 13:01 06/09/18 17:33 06/09/18 20:33 Bedside Glucose 95 83 73 Medications Medication Current Medications Albuterol/ Ipratropium (Duoneb) 3 ml Q2H RESP THERAPY PRN NEB SHORTNESS OF BREATH; Start 06/06/18 at 10:30 Acetaminophen (Tylenol Supp) 650 mg Q4H PRN [place] PAIN LEVEL 1-3 OR FEVER; Start 06/06/18 at 10:30 Heparin Sodium (Porcine) (Heparin (5000 Units/1ml)) 5,000 unit Q12 SC Last administered on 06/09/18at 20:48; Admin Dose 5,000 UNIT; Start 06/06/18 at 21:00 Acetaminophen/ Hydrocodone Bitart ([place] (10/325)) 1 tab Q6 PRN PO PAIN LEVEL 1-5; Start 06/06/18 at 10:30 Nitroglycerin (Nitroglycerin (Sl Tab) 0.4 Mg) 1 tab [id number] PRN SL CHEST PAIN; Start 06/06/18 at 10:30 Tiotropium [place] (Spiriva) 1 inh DAILY INH Last administered on 06/09/18at 08:58; Admin Dose 1 INH; Start 06/07/18 at 09:00 Zolpidem Tartrate (Ambien) 5 mg HS PRN PO INSOMNIA Last administered on 06/09/18at 20:50; Admin Dose 5 MG; Start 06/06/18 at 21:00 Diagnostic Test (Pha) (Accu-Chek) 1 ea Q4 XX Last administered on 06/09/18 17:34; Admin Dose 1 EA; Start 06/06/18 at 13:00 Aspirin (Aspirin) 81 mg DAILY NGT Last administered on 06/09/18 08:56; Admin Dose 81 MG; Start 06/07/18 at 09:00 Atorvastatin Calcium (Lipitor) 80 mg QHS NGT Last administered on 06/09/18 20:43; Admin Dose 80 MG; Start 06/07/18 at 21:00 Clopidogrel Bisulfate (plaVIX) 75 mg DAILY NGT Last administered on 06/09/18 08:56; Admin Dose 75 MG; Start 06/07/18 at 09:00 Levetiracetam (Keppra) 500 mg BID NGT Last administered on 06/09/18 08:56; Admin Dose 500 MG; Start 06/07/18 at 09:00 Levothyroxine Sodium (Synthroid) 200 mcg BEFORE BREAKFAST NGT Last administered on 06/09/18 06:29; Admin Dose 200 MCG; Start 06/07/18 at 07:00 Senna (Senokot) 1 tab BID NGT Last administered on 06/09/18 20:42; Admin Dose 1 TAB; Start 06/07/18 at 09:00 Sevelamer Carbonate (Renvela) 0.8 gm WITH MEALS NGT Last administered on 06/09/18 17:34; Admin Dose 0.8 GM; Start 06/07/18 at 07:35 Epoetin Geo-epbx (RETACRIT(esrd)) 10,000 unit MoWeFr@1700 SC Last administered on 06/08/18 17:54; Admin Dose 10,000 UNIT; Start 06/08/18 at 17:00 Famotidine (Pepcid) 20 mg DAILY NGT Last administered on 06/09/18 08:56; Admin Dose 20 MG; Start 06/09/18 at 09:00 Sacubitril/ Valsartan (Entresto 24 Mg-26 Mg) 1 tab BID PO ; Start 06/10/18 at 21:00 Metoprolol Succinate (Toprol Xl) 25 mg BID PO Last administered on 06/09/18 20:43; Admin Dose 25 MG; Start 06/09/18 at 21:00 ARASELI MILLER MD Jun 09, 2018 21:27
[2018-06-10] VITALS (26 sets, daily range): BP systolic 110–151; BP diastolic 49–94; PULSE 77–95; RESP 17–20
[2018-06-10] MEDS: ACCU-CHEK XX SCH ×6 (01:00→20:37)
[2018-06-10] MEDS: HYDROCODONE/APAP (10/325) TAB PO PRN ×2 (04:38→19:33)
[2018-06-10] MEDS: LEVOTHYROXINE 100 MCG TAB NGT SCH (06:48)
[2018-06-10] MEDS: SEVELAMER CARBONATE 0.8 GM PKT NGT SCH ×3 (07:59→17:56)
--- NOTE | 2018-06-10 08:33 | PN ---
DATE: 06/10/2018 SUBJECTIVE: The patient is stable, no events overnight. OBJECTIVE: VITAL SIGNS: Blood pressure is 119/69, pulse 91, respirations 18, temperature 98.0. HEENT: Head is normocephalic. NECK: Supple. HEART: Regular rate. LUNGS: Show diminished breath sounds at the base. ABDOMEN: Soft, nontender to palpation. No rebound or guarding. EXTREMITIES: Negative for clubbing, cyanosis, no edema. DERMATOLOGIC: No rashes. MUSCULOSKELETAL: No joint effusion. NEUROLOGIC: No change in exam. MEDICATIONS: Reviewed. LABORATORY DATA: Reviewed. ASSESSMENT AND PLAN: 1. End-stage renal disease. Plan is for hemodialysis today. We will dialyze for 3 hours 3k bath, c alcium 2.5. 2. Hypertensive urgency, improved. Continue current blood pressure regimen. Continue ultrafiltrati on with hemodialysis. 3. Anemia. Continue to monitor hemoglobin and hematocrit levels. Continue Epogen intermittently. 4. Mineral bone disorder, monitor calcium and phosphorus levels. Continue phosphate binders. 5. Respiratory failure, status post extubation. The patient is currently stable on nasal cannula. Continue to monitor. 6. Encephalopathy, etiology is multifactorial. Mental status is improving. Continue to monitor. 7. Coronary artery disease. Continue current treatment plan. Follow up with cardiology. 8. Dyslipidemia. Continue statin therapy. 9. History of hypothyroid carcinoma. 10. History of cardiac arrest. 11. Volume overload, improving. Dictated By: HARVEY LUCIO DO NR/NTS Conf#: [id number] DID#: [id number] CC: MARGARITO VIVAR MD; JJ SINGER M.D.;*EndCC*
[2018-06-10] MEDS: FAMOTIDINE 20 MG TAB NGT SCH (08:48)
[2018-06-10] MEDS: LEVETIRACETAM 500 MG TAB NGT SCH ×2 (08:48→20:30)
[2018-06-10] MEDS: ASPIRIN 81 MG TAB NGT SCH (08:48)
[2018-06-10] MEDS: SENNA TAB NGT SCH ×2 (08:48→20:30)
[2018-06-10] MEDS: METOPROLOL (XL) 25 MG TAB PO SCH ×2 (08:49→20:31)
[2018-06-10] MEDS: TIOTROPIUM 18 MCG CAPSULE INHA DEV INH SCH (08:49)
[2018-06-10] MEDS: CLOPIDOGREL 75 MG TAB NGT SCH (08:49)
[2018-06-10] MEDS: HEPARIN 5,000 UNIT/1 ML VIAL SC SCH ×2 (09:06→20:37)
[2018-06-10] MEDS ORDERED: NAPROXEN 500 MG TAB PO PRN (10:30)
--- NOTE | 2018-06-10 10:52 | PN ---
Date/Time of Note Date/Time of Note DATE: 06/10/18 TIME: 10:43 Assessment/Plan VTE Prophylaxis Risk score (from Ns)>0 risk: 1 SCD applied (from Ns): No SCD contraindicated: low risk/ambulating Pharmacological prophylaxis: heparin Lines/Catheters IV Catheter Type (from Nrsg): Mid Line Central line still needed: Yes Urinary Cath still in place: No Assessment/Plan Problems: (1) Congestive heart failure Status: Chronic Comment: Symptomatic improvement overall. Management per cardiology. (2) End stage kidney disease Status: Chronic Comment: HD and management per nephrology (3) Atherosclerotic heart disease of [place] coronary artery without angina pectoris Status: Chronic Comment: Despite patients significant cardiac history current chest pain is reproducible with palpation and resembles costochondritis more that acute coronary syndrome. Will start NSAID and defer further work up to cardiology. Qualifiers: [place] vs. transplanted heart: [place] heart Qualified Codes: I25.10 - Atherosclerotic heart disease of [place] coronary artery without angina pectoris (4) Costochondritis Status: Acute Comment: Reproducible chest pain with palpation. Will start Naproxen (5) DM (diabetes mellitus), type 2 Status: Chronic Comment: Good glycemic control Qualifiers: Diabetes mellitus residential insulin use: unspecified middle or intermediate school principal insulin use status Diabetes mellitus complication status: with kidney complications Diabetes mellitus complication detail: with chronic kidney disease Chronic kidney disease stage: on chronic dialysis Qualified Codes: E11.22 - Type 2 diabetes mellitus with diabetic chronic kidney disease; N18.6 - End stage renal disease; Z99.2 - Dependence on renal dialysis (6) Essential (primary) hypertension Status: Chronic Comment: Decent blood pressure control (7) Acute respiratory failure Status: Resolved Qualifiers: Respiratory failure complication: hypoxia Qualified Codes: J96.01 - Acute respiratory failure with hypoxia Result Diagram: 06/08/18 0330 06/08/18 0330 Results 24hrs Laboratory Tests Test 06/09/18 13:01 06/09/18 17:33 06/09/18 20:33 06/10/18 01:38 Bedside Glucose 95 83 73 122 Test 06/10/18 04:43 06/10/18 08:47 Bedside Glucose 108 97 Subjective 24 Hr Interval Summary Free Text/Dictation Complain of right sided chest pain with cough and inspiration. Reproducible with palpation. Exam/Review of Systems Exam Vitals Vital Signs Date Temp Pulse Resp B/P (MAP) Pulse Ox O2 O2 Flow FiO2 Time Delivery Rate 06/10/18 91 08:08 06/10/18 98.0 18 119/69 94 Room Air 07:12 (86) 06/08/18 2.0 18:22 06/08/18 27 02:09 Intake and Output 06/09/18 06/09/18 06/10/18 1515:00 23:00 07:00 IntakeIntake Total 700 ml 420 ml BalanceBalance 700 ml 420 ml Constitutional: alert, oriented Neck: supple Respiratory: clear to auscultation Cardiovascular: regular rate and rhythm, other (Anterior chest wall tender to palpation) Gastrointestinal: soft Musculoskeletal: nl extremities to inspection Extremities: edema (none) Additional Comments POC glucose reviewed Results Results 24hrs Laboratory Tests Test 06/09/18 13:01 06/09/18 17:33 06/09/18 20:33 06/10/18 01:38 Bedside Glucose 95 83 73 122 Test 06/10/18 04:43 06/10/18 08:47 Bedside Glucose 108 97 Medications Medication Current Medications Albuterol/ Ipratropium (Duoneb) 3 ml Q2H RESP THERAPY PRN NEB SHORTNESS OF [place] TH; Start 06/06/18 at 10:30 Acetaminophen (Tylenol Supp) 650 mg Q4H PRN [place] PAIN LEVEL 1-3 OR FEVER; Start 06/06/18 at 10:30 Heparin Sodium (Porcine) (Heparin (5000 Units/1ml)) 5,000 unit Q12 SC Last administered on 06/10/18at 09:06; Admin Dose 5,000 UNIT; Start 06/06/18 at 21:00 Acetaminophen/ Hydrocodone Bitart ([place] (10/325)) 1 tab Q6 PRN PO PAIN LEVEL 1-5 Last administered on 06/10/18at 04:38; Admin Dose 1 TAB; Start 06/06/18 at 10:30 Nitroglycerin (Nitroglycerin (Sl Tab) 0.4 Mg) 1 tab [id number] PRN SL CHEST PAIN; Start 06/06/18 at 10:30 Tiotropium [place] (Spiriva) 1 inh DAILY INH Last administered on 06/10/18at 08:49; Admin Dose 1 INH; Start 06/07/18 at 09:00 Zolpidem Tartrate (Ambien) 5 mg HS PRN PO INSOMNIA Last administered on 06/09/18 20:50; Admin Dose 5 MG; Start 06/06/18 at 21:00 Diagnostic Test (Pha) (Accu-Chek) 1 ea Q4 XX Last administered on 06/10/18 09:07; Admin Dose 1 EA; Start 06/06/18 at 13:00 Aspirin (Aspirin) 81 mg DAILY NGT Last administered on 06/10/18 08:48; Admin Dose 81 MG; Start 06/07/18 at 09:00 Atorvastatin Calcium (Lipitor) 80 mg QHS NGT Last administered on 06/09/18 20:43; Admin Dose 80 MG; Start 06/07/18 at 21:00 Clopidogrel Bisulfate (plaVIX) 75 mg DAILY NGT Last administered on 06/10/18 08:49; Admin Dose 75 MG; Start 06/07/18 at 09:00 Levetiracetam (Keppra) 500 mg BID NGT Last administered on 06/10/18 08:48; Admin Dose 500 MG; Start 06/07/18 at 09:00 Levothyroxine Sodium (Synthroid) 200 mcg BEFORE BREAKFAST NGT Last administered on 06/10/18 06:48; Admin Dose 200 MCG; Start 06/07/18 at 07:00 Senna (Senokot) 1 tab BID NGT Last administered on 06/10/18 08:48; Admin Dose 1 TAB; Start 06/07/18 at 09:00 Sevelamer Carbonate (Renvela) 0.8 gm WITH MEALS NGT Last administered on 06/09/18 17:34; Admin Dose 0.8 GM; Start 06/07/18 at 07:35 Epoetin Geo-epbx (RETACRIT(esrd)) 10,000 unit MoWeFr@1700 SC Last administered on 06/08/18 17:54; Admin Dose 10,000 UNIT; Start 06/08/18 at 17:00 Famotidine (Pepcid) 20 mg DAILY NGT Last administered on 06/10/18 08:48; Admin Dose 20 MG; Start 06/09/18 at 09:00 Sacubitril/ Valsartan (Entresto 24 Mg-26 Mg) 1 tab BID PO ; Start 06/10/18 at 21:00 Metoprolol Succinate (Toprol Xl) 25 mg BID PO Last administered on 06/10/18at 08:49; Admin Dose 25 MG; Start 06/09/18 at 21:00 Naproxen (Naprosyn) 500 mg BID PRN PO pain; Start 06/10/18 at 10:30 Alprazolam (Xanax) 0.25 mg Q12H PRN PO ANXIETY; Start 06/10/18 at 10:30 ARASELI MILLER MD June 10, 2018 10:52
--- NOTE | 2018-06-10 11:05 | CONS ---
Consult Date/Type/Reason Admit Date/Time Jun 06, 2018 at 08:42 Initial Consult Date 06/07/18 Type of Consult Pulmonary Requesting Provider: MARGARITO VIVAR MD Date/Time of Note DATE: 06/10/18 TIME: 11:03 Subjective Remains stable, denies shortness of breath Objective Vital Signs Date Temp Pulse Resp B/P (MAP) Pulse Ox O2 O2 Flow FiO2 Time Delivery Rate 06/10/18 91 08:08 06/10/18 98.0 18 119/69 94 Room Air 07:12 (86) 06/08/18 2.0 18:22 06/08/18 02:09 Intake and Output 06/09/18 06/09/18 06/10/18 1515:00 23:00 07:00 IntakeIntake Total 700 ml 420 ml BalanceBalance 700 ml 420 ml Exam GENERAL: Well-nourished well-developed lady comfortable on room air. No respiratory distress. VITAL SIGNS: per chart NECK: Supple. No JVD or lymphadenopathy. CARDIAC EXAM: S1, S2. No added sounds or murmurs. CHEST: clear bilaterally, No added sounds, rales or wheezes ABDOMEN: Soft, nontender. No guarding or rebound. EXTREMITIES: No cyanosis, clubbing or edema. NEUROLOGIC: Generalized weakness. No focal deficits. Vent Setting Ventilator Support Mode: CPAP, PS Fraction of Inspired Oxygen pe: 27 Positive End Expiratory Pressu: 5.0 Results/Medications Result Diagram: 06/08/18 0330 06/08/18 0330 Results 24 hrs Laboratory Tests Test 06/09/18 13:01 06/09/18 17:33 06/09/18 20:33 06/10/18 01:38 Bedside Glucose 95 83 73 122 Test 06/10/18 04:43 06/10/18 08:47 Bedside Glucose 108 97 Medications Current Medications Albuterol/ Ipratropium (Duoneb) 3 ml Q2H RESP THERAPY PRN NEB SHORTNESS OF BREATH; Start 06/06/18 at 10:30 Acetaminophen (Tylenol Supp) [address] PAIN LEVEL 1-3 OR FEVER; Start 06/06/18 at 10:30 Heparin Sodium (Porcine) (Heparin (5000 Units/1ml)) 5,000 unit Q12 SC Last administered on 06/10/18at 09:06; Admin Dose 5,000 UNIT; Start 06/06/18 at 21:00 Acetaminophen/ Hydrocodone Bitart ([place] (10/325)) 1 tab Q6 PRN PO PAIN LEVEL 1-5 Last administered on 06/10/18 04:38; Admin Dose 1 TAB; Start 06/06/18 at 10:30 Nitroglycerin (Nitroglycerin (Sl Tab) 0.4 Mg) 1 tab [id number] PRN SL CHEST PAIN; Start 06/06/18 at 10:30 Tiotropium [place] (Spiriva) 1 inh DAILY INH Last administered on 06/10/18 08:49; Admin Dose 1 INH; Start 06/07/18 at 09:00 Zolpidem Tartrate (Ambien) 5 mg HS PRN PO INSOMNIA Last administered on 06/09/18 20:50; Admin Dose 5 MG; Start 06/06/18 at 21:00 Diagnostic Test (Pha) (Accu-Chek) 1 ea Q4 XX Last administered on 06/10/18 09:07; Admin Dose 1 EA; Start 06/06/18 at 13:00 Aspirin (Aspirin) 81 mg DAILY NGT Last administered on 06/10/18 08:48; Admin Dose 81 MG; Start 06/07/18 at 09:00 Atorvastatin Calcium (Lipitor) 80 mg QHS NGT Last administered on 06/09/18 20:43; Admin Dose 80 MG; Start 06/07/18 at 21:00 Clopidogrel Bisulfate (plaVIX) 75 mg DAILY NGT Last administered on 06/10/18 08:49; Admin Dose 75 MG; Start 06/07/18 at 09:00 Levetiracetam (Keppra) 500 mg BID NGT Last administered on 06/10/18 08:48; Admin Dose 500 MG; Start 06/07/18 at 09:00 Levothyroxine Sodium (Synthroid) 200 mcg BEFORE BREAKFAST NGT Last administered on 06/10/18 06:48; Admin Dose 200 MCG; Start 06/07/18 at 07:00 Senna (Senokot) 1 tab BID NGT Last administered on 06/10/18 08:48; Admin Dose 1 TAB; Start 06/07/18 at 09:00 Sevelamer Carbonate (Renvela) 0.8 gm WITH MEALS NGT Last administered on 06/09/18at 17:34; Admin Dose 0.8 GM; Start 06/07/18 at 07:35 Epoetin Geo-epbx (RETACRIT(esrd)) 10,000 unit MoWeFr@1700 SC Last administered on 06/08/18at 17:54; Admin Dose 10,000 UNIT; Start 06/08/18 at 17:00 Famotidine (Pepcid) 20 mg DAILY NGT Last administered on 06/10/18at 08:48; Admin Dose 20 MG; Start 06/09/18 at 09:00 Sacubitril/ Valsartan (Entresto 24 Mg-26 Mg) 1 tab BID PO ; Start 06/10/18 at 21:00 Metoprolol Succinate (Toprol Xl) 25 mg BID PO Last administered on 06/10/18at 08:49; Admin Dose 25 MG; Start 06/09/18 at 21:00 Naproxen (Naprosyn) 500 mg BID PRN PO pain; Start 06/10/18 at 10:30 Alprazolam (Xanax) 0.25 mg Q12H PRN PO ANXIETY; Start 06/10/18 at 10:30 Assessment/Plan Hospital Course (Demo Recall) Assessment 1. Status post acute seizure in a patient with a known seizure history. 2. Status post acute hypoxic respiratory failure likely secondary to volume overload 3. End-stage renal failure on hemodialysis 4. Thrombocytopenia Plan 1. Continue O2 as needed 2. Encourage out of bed 3. Seizure medications and precautions 4. Consider outpatient sleep study Consider transfer to [facility] and [place] planning. ISABELA PATEL MD, [facility] June 10, 2018 11:05
--- NOTE | 2018-06-10 11:21 | CONS ---
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 The angiogram I performed prior to that in approximately November 2017 with patent LAD, circumflex was a small caliber vessel and diseased, not amendable to percutaneous coronary intervention and a complete occlusion of the RCA which was recently fixed at [facility]. I have requested the films from [facility] but based on the history, I do not think any further for percutaneous coronary intervention is necessary at the current time -Fluid management via hemodialysis as per nephrology Consultation Date/Type/Reason Admit Date/Time Jun 06, 2018 at 08:42 Initial Consult Date 06/07/18 Type of Consult Cardiology Requesting Provider: MARGARITO VIVAR MD Date/Time of Note DATE: 06/10/18 TIME: 11:19 24 HR Interval Summary Free Text/Dictation Denies chest pain, shortness of breath or palpitations Exam/Review of Systems Vital Signs Vitals Vital Signs Date Temp Pulse Resp B/P (MAP) Pulse Ox O2 O2 Flow FiO2 Time Delivery Rate 06/10/18 91 08:08 06/10/18 98.0 18 119/69 94 Room Air 07:12 (86) 06/08/18 2.0 18:22 06/08/18 27 02:09 Intake and Output 06/09/18 06/09/18 06/10/18 1414:59 22:59 06:59 IntakeIntake Total 700 ml 420 ml BalanceBalance 700 ml 420 ml Exam Constitutional: alert, oriented (No apparent distress) Head: normocephalic Respiratory: clear to auscultation, normal air movement Cardiovascular: regular rate and rhythm (S1-S2 heard) Gastrointestinal: soft, non-tender, bowel sounds Extremities: edema (Trace) Labs Result Diagram: 06/08/18 0330 4/29/19 0330 Results 24hrs Laboratory Tests Test 06/09/18 13:01 06/09/18 17:33 06/09/18 20:33 06/10/18 01:38 Bedside Glucose 95 83 73 122 Test 06/10/18 04:43 06/10/18 08:47 Bedside Glucose 108 97 Medications Medications Current Medications Albuterol/ Ipratropium (Duoneb) 3 ml Q2H RESP THERAPY PRN NEB SHORTNESS OF BREATH; Start 06/06/18 at 10:30 Acetaminophen (Tylenol Supp) 650 mg Q4H PRN [place] PAIN LEVEL 1-3 OR FEVER; Start 06/06/18 at 10:30 Heparin Sodium (Porcine) (Heparin (5000 Units/1ml)) 5,000 unit Q12 SC Last administered on 06/10/18 09:06; Admin Dose 5,000 UNIT; Start 06/06/18 at 21:00 Acetaminophen/ Hydrocodone Bitart ([place] (10325)) 1 tab Q6 PRN PO PAIN LEVEL 1-5 Last administered on 06/10/18 04:38; Admin Dose 1 TAB; Start 06/06/18 at 10:30 Nitroglycerin (Nitroglycerin (Sl Tab) 0.4 Mg) 1 tab [id number] PRN SL CHEST PAIN; Start 06/06/18 at 10:30 Tiotropium [place] (Spiriva) 1 inh DAILY INH Last administered on 06/10/18 08:49; Admin Dose 1 INH; Start 06/07/18 at 09:00 Zolpidem Tartrate (Ambien) 5 mg HS PRN PO INSOMNIA Last administered on 06/09/18 20:50; Admin Dose 5 MG; Start 06/06/18 at 21:00 Diagnostic Test (Pha) (Accu-Chek) 1 ea Q4 XX Last administered on 06/10/18 09:07; Admin Dose 1 EA; Start 06/06/18 at 13:00 Aspirin (Aspirin) 81 mg DAILY NGT Last administered on 06/10/18 08:48; Admin Dose 81 MG; Start 06/07/18 at 09:00 Atorvastatin Calcium (Lipitor) 80 mg QHS NGT Last administered on 06/09/18 20:43; Admin Dose 80 MG; Start 06/07/18 at 21:00 Clopidogrel Bisulfate (plaVIX) 75 mg DAILY NGT Last administered on 06/10/18 08:49; Admin Dose 75 MG; Start 06/07/18 at 09:00 Levetiracetam (Keppra) 500 mg BID NGT Last administered on 06/10/18 08:48; Admin Dose 500 MG; Start 06/07/18 at 09:00 Levothyroxine Sodium (Synthroid) 200 mcg BEFORE BREAKFAST NGT Last administered on 06/10/18 06:48; Admin Dose 200 MCG; Start 06/07/18 at 07:00 Senna (Senokot) 1 tab BID NGT Last administered on 06/10/18 08:48; Admin Dose 1 TAB; Start 06/07/18 at 09:00 Sevelamer Carbonate (Renvela) 0.8 gm WITH MEALS NGT Last administered on 06/09/18 17:34; Admin Dose 0.8 GM; Start 06/07/18 at 07:35 Epoetin Geo-epbx (RETACRIT(esrd)) 10,000 unit MoWeFr@1700 SC Last administered on 06/08/18 17:54; Admin Dose 10,000 UNIT; Start 06/08/18 at 17:00 Famotidine (Pepcid) 20 mg DAILY NGT Last administered on 06/10/18 08:48; Admin Dose 20 MG; Start 06/09/18 at 09:00 Sacubitril/ Valsartan (Entresto 24 Mg-26 Mg) 1 tab BID PO ; Start 06/10/18 at 21:00 Metoprolol Succinate (Toprol Xl) 25 mg BID PO Last administered on 06/10/18 08:49; Admin Dose 25 MG; Start 06/09/18 at 21:00 Naproxen (Naprosyn) 500 mg BID PRN PO pain; Start 06/10/18 at 10:30 Alprazolam (Xanax) 0.25 mg Q12H PRN PO ANXIETY; Start 06/10/18 at 10:30 Heri Schaefer DO June 10, 2018 11:21
[2018-06-10] MEDS: ALPRAZOLAM 0.25 MG TAB PO PRN (11:59)
[2018-06-10] MEDS: EPOETIN ALFA-EPBX (ESRD) 10,000 UNIT/ML VIAL SC SCH (18:31)
[2018-06-10] MEDS: SACUBITRIL/VALSARTAN (24mg-26mg) TABLET PO SCH (20:30)
[2018-06-10] MEDS: ATORVASTATIN 80 MG TAB NGT SCH (20:30)
[2018-06-11] VITALS (13 sets, daily range): BP systolic 124–160; BP diastolic 58–78; PULSE 67–81; RESP 17–22
[2018-06-11] MEDS: ACCU-CHEK XX SCH ×5 (01:12→20:28)
[2018-06-11] MEDS: LEVOTHYROXINE 100 MCG TAB NGT SCH (05:57)
[2018-06-11] MEDS: SEVELAMER CARBONATE 0.8 GM PKT NGT SCH ×3 (07:28→17:07)
[2018-06-11] MEDS: SENNA TAB NGT SCH ×2 (08:55→20:28)
[2018-06-11] MEDS: BALSAM PERU/CASTOR OIL 60 GM TUBE TOP SCH (08:55)
[2018-06-11] MEDS: CLOPIDOGREL 75 MG TAB NGT SCH (08:56)
[2018-06-11] MEDS: ASPIRIN 81 MG TAB NGT SCH (08:56)
[2018-06-11] MEDS: FAMOTIDINE 20 MG TAB NGT SCH (08:56)
[2018-06-11] MEDS: LEVETIRACETAM 500 MG TAB NGT SCH ×2 (08:56→20:27)
[2018-06-11] MEDS: SACUBITRIL/VALSARTAN (24mg-26mg) TABLET PO SCH ×2 (08:56→20:28)
[2018-06-11] MEDS: METOPROLOL (XL) 25 MG TAB PO SCH ×2 (08:57→20:28)
[2018-06-11] MEDS: TIOTROPIUM 18 MCG CAPSULE INHA DEV INH SCH (08:57)
[2018-06-11] MEDS: HEPARIN 5,000 UNIT/1 ML VIAL SC SCH ×2 (09:03→20:36)
--- NOTE | 2018-06-11 09:51 | PN ---
DATE: 06/11/2018 SUBJECTIVE: The patient is stable, no events noted. No fevers, chills, nausea, or vomiting. OBJECTIVE: VITAL SIGNS: Blood pressure 126/58, pulse 73, respirations 22, temperature 98.6. HEENT: Head is normocephalic. NECK: Supple. HEART: Regular rate. LUNGS: Show diminished breath sounds at the base. ABDOMEN: Soft, nontender to palpation without rebound or guarding. EXTREMITIES: Negative for clubbing, cyanosis, no edema. DERMATOLOGIC: No rashes. MUSCULOSKELETAL: No joint effusion. NEUROLOGIC: No change in exam. MEDICATIONS: Reviewed. LABORATORY DATA: Reviewed. ASSESSMENT AND PLAN: 1. End-stage renal disease. The patient had hemodialysis yesterday, tolerated well. Plan is for di alysis tomorrow. 2. Hypertension, improved. Continue current blood pressure regimen. 3. Anemia. Continue to monitor hemoglobin and hematocrit levels. We will continue Epogen as needed . 4. Mineral bone disorder, monitor calcium and phosphorus levels. Continue phosphate binders. 5. Encephalopathy, improving. Continue to monitor. 6. Coronary artery disease. Continue current treatment plan. 7. Dyslipidemia. Continue statin therapy. 8. History of cardiac arrest. 9. Volume overload, improving. 10. Status post respiratory failure. Dictated By: HARVEY BAIN/NTS Conf#: [id number] DID#: [id number] CC: JJ SINGER M.D.; MARGARITO VIVAR MD;*EndCC*
--- NOTE | 2018-06-11 12:09 | CONS ---
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 which was complicated by cardiac arrest. The angiogram I performed prior to that in approximately November 2017 with patent LAD, circumflex was a small caliber vessel and diseased, not amendable to percutaneous coronary intervention and a complete occlusion of the RCA which was recently fixed at [facility]. I have requested the films from [facility] (which we have still not received), but based on the history, I do not think any further for percutaneous coronary intervention is necessary at the current time -Fluid management via hemodialysis as per nephrology -DC planning Consultation Date/Type/Reason Admit Date/Time Jun 06, 2018 at 08:42 Initial Consult Date 06/07/18 Type of Consult Cardiology Requesting Provider: MARGARITO VIVAR MD Date/Time of Note DATE: 06/11/18 TIME: 12:07 24 HR Interval Summary Free Text/Dictation No shortness of breath, chest pain. Complains of fatigue Exam/Review of Systems Vital Signs Vitals Vital Signs Date Temp Pulse Resp B/P (MAP) Pulse Ox O2 O2 Flow FiO2 Time Delivery Rate 06/11/18 74 12:04 06/11/18 98.0 22 125/65 96 Nasal 11:30 (85) Cannula 06/11/18 2.0 07:22 06/08/18 27 02:09 Intake and Output 06/10/18 06/10/18 06/11/18 1515:00 23:00 07:00 IntakeIntake Total 620 ml 60 ml OutputOutput Total 2600 ml BalanceBalance -1980 ml 60 ml Exam Constitutional: alert, oriented (No apparent distress) Head: normocephalic Respiratory: other (Coarse breath sounds bilaterally, no wheezing) Cardiovascular: regular rate and rhythm (S1-S2 heard) Gastrointestinal: soft, non-tender, bowel sounds Extremities: edema (Trace) Labs Result Diagram: 06/08/18 0330 06/08/18 0330 Results 24hrs Laboratory Tests Test 06/10/18 17:34 06/10/18 20:28 06/10/18 21:21 06/11/18 07:30 Bedside Glucose 78 62 L 78 81 Test 06/11/18 11:14 Bedside Glucose 77 Medications Medications Current Medications Albuterol/ Ipratropium (Duoneb) 3 ml Q2H RESP THERAPY PRN NEB SHORTNESS OF BREATH; Start 06/06/18 at 10:30 Acetaminophen (Tylenol Supp) 650 mg Q4H PRN [place] PAIN LEVEL 1-3 OR FEVER; Start 06/06/18 at 10:30 Heparin Sodium (Porcine) (Heparin (5000 Units/1ml)) 5,000 unit Q12 SC Last administered on 06/11/18 09:03; Admin Dose 5,000 UNIT; Start 06/06/18 at 21:00 Acetaminophen/ Hydrocodone Bitart ([place] (10/325)) 1 tab Q6 PRN [place] PAIN LEVEL 1-5 Last administered on 06/10/18 19:33; Admin Dose 1 TAB; Start 06/06/18 at 10:30 Nitroglycerin (Nitroglycerin (Sl Tab) 0.4 Mg) 1 tab [id number] PRN SL CHEST PAIN; Start 06/06/18 at 10:30 Tiotropium [place] (Spiriva) 1 inh DAILY INH Last administered on 06/10/18 08:49; Admin Dose 1 INH; Start 06/07/18 at 09:00 Zolpidem Tartrate (Ambien) 5 mg HS PRN PO INSOMNIA Last administered on 06/09/18 20:50; Admin Dose 5 MG; Start 06/06/18 at 21:00 Aspirin (Aspirin) 81 mg DAILY NGT Last administered on 06/11/18 08:56; Admin Dose 81 MG; Start 06/07/18 at 09:00 Atorvastatin Calcium (Lipitor) 80 mg QHS NGT Last administered on 06/10/18 20:30; Admin Dose 80 MG; Start 06/07/18 at 21:00 Clopidogrel Bisulfate (plaVIX) 75 mg DAILY NGT Last administered on 06/11/18 08:56; Admin Dose 75 MG; Start 06/07/18 at 09:00 Levetiracetam (Keppra) 500 mg BID NGT Last administered on 06/11/18 08:56; Admin Dose 500 MG; Start 06/07/18 at 09:00 Levothyroxine Sodium (Synthroid) 200 mcg BEFORE BREAKFAST NGT Last administered on 06/11/18 05:57; Admin Dose 200 MCG; Start 06/07/18 at 07:00 Senna (Senokot) 1 tab BID NGT Last administered on 06/11/18 08:55; Admin Dose 1 TAB; Start 06/07/18 at 09:00 Sevelamer Carbonate (Renvela) 0.8 gm WITH MEALS NGT Last administered on 17:34; Admin Dose 0.8 GM; Start 06/07/18 at 07:35 Epoetin Geo-epbx (RETACRIT(esrd)) 10,000 unit MoWeFr@1700 SC Last administered on 06/10/18 18:31; Admin Dose 10,000 UNIT; Start 06/08/18 at 17:00 Famotidine (Pepcid) 20 mg DAILY NGT Last administered on 06/11/18 08:56; Admin Dose 20 MG; Start 06/09/18 at 09:00 Sacubitril/ Valsartan (Entresto 24 Mg-26 Mg) 1 tab BID PO Last administered on 06/11/18 08:56; Admin Dose 1 TAB; Start 06/10/18 at 21:00 Metoprolol Succinate (Toprol Xl) 25 mg BID PO Last administered on 06/11/18 08:57; Admin Dose 25 MG; Start 06/09/18 at 21:00 Naproxen (Naprosyn) 500 mg BID PRN PO pain; Start 06/10/18 at 10:30 Alprazolam (Xanax) 0.25 mg Q12H PRN PO ANXIETY Last administered on 06/10/18 11:59; Admin Dose 0.25 MG; Start 06/10/18 at 10:30 Diagnostic Test (Pha) (Accu-Chek) 1 ea AC MEALS AND BEDTIME XX Last administered on 06/11/18 11:17; Admin Dose 1 EA; Start 06/11/18 at 07:00 Heri Schaefer DO June 11, 2018 12:09
[2018-06-11] MEDS: ALPRAZOLAM 0.25 MG TAB PO PRN (13:42)
--- NOTE | 2018-06-11 17:01 | PN ---
Date/Time of Note Date/Time of Note DATE: 06/11/18 TIME: 16:55 Assessment/Plan VTE Prophylaxis Risk score (from Ns)>0 risk: 2 SCD applied (from Ns): No SCD contraindicated: low risk/ambulating Pharmacological prophylaxis: heparin Lines/Catheters IV [facility]from [facility] Mid Line Urinary Cath still in place: No Assessment/Plan Problems: (1) Congestive heart failure Status: Chronic Comment: Clinical improvement overall. 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 (6) Discharged to home Comment: Plan for discharge home tomorrow. Result Diagram: 06/08/18 0330 06/08/18 0330 Results 24hrs Laboratory Tests Test 06/10/18 17:34 06/10/18 20:28 06/10/18 21:21 06/11/18 07:30 Bedside Glucose 78 62 L 78 81 Test 06/11/18 11:14 Bedside Glucose 77 Subjective 24 Hr Interval Summary Free Text/Dictation Still with reproducible chest pain. Never received the Naproxen. Now complain of generalized pruritus. Exam/Review of Systems Exam Vitals Vital Signs Date Temp Pulse Resp B/P (MAP) Pulse Ox O2 O2 Flow FiO2 Time Delivery Rate 06/11/18 78 16:34 06/11/18 97.8 22 149/63 96 Nasal 2.0 15:05 (91) Cannula 06/08/18 27 02:09 Intake and Output 06/10/18 06/10/18 06/11/18 1515:00 23:00 07:00 IntakeIntake Total 620 ml 60 ml OutputOutput Total 2600 ml BalanceBalance -1980 ml 60 ml Constitutional: alert, oriented Neck: supple Respiratory: clear to auscultation Cardiovascular: regular rate and rhythm Musculoskeletal: nl extremities to inspection Additional Comments POC glucose reviewed Results Results 24hrs Laboratory Tests Test 06/10/18 17:34 06/10/18 20:28 06/10/18 21:21 06/11/18 07:30 Bedside Glucose 78 62 L 78 81 Test 06/11/18 11:14 Bedside Glucose 77 Medications Medication Current Medications Albuterol/ Ipratropium (Duoneb) 3 ml Q2H RESP THERAPY PRN NEB SHORTNESS OF BREATH; Start 06/06/18 at 10:30 Acetaminophen (Tylenol Supp) 650 mg Q4H PRN [place] PAIN LEVEL 1-3 OR FEVER; Start 06/06/18 at 10:30 Heparin Sodium (Porcine) (Heparin (5000 Units/1ml)) 5,000 unit Q12 SC Last administered on 06/11/18 09:03; Admin Dose 5,000 UNIT; Start 06/06/18 at 21:00 Nitroglycerin (Nitroglycerin (Sl Tab) 0.4 Mg) 1 tab [id number] PRN SL CHEST PAIN; Start 06/06/18 at 10:30 Tiotropium [place] (Spiriva) 1 inh DAILY INH Last administered on 06/10/18 08:49; Admin Dose 1 INH; Start 06/07/18 at 09:00 Zolpidem Tartrate (Ambien) 5 mg HS PRN PO INSOMNIA Last administered on 06/09/18 20:50; Admin Dose 5 MG; Start 06/06/18 at 21:00 Aspirin (Aspirin) 81 mg DAILY NGT Last administered on 06/11/18 08:56; Admin Dose 81 MG; Start 06/07/18 at 09:00 Atorvastatin Calcium (Lipitor) 80 mg QHS NGT Last administered on 06/10/18 20:30; Admin Dose 80 MG; Start 06/07/18 at 21:00 Clopidogrel Bisulfate (plaVIX) 75 mg DAILY NGT Last administered on 06/11/18 08:56; Admin Dose 75 MG; Start 06/07/18 at 09:00 Levetiracetam (Keppra) 500 mg BID NGT Last administered on 06/11/18 08:56; Admin Dose 500 MG; Start 06/07/18 at 09:00 Levothyroxine Sodium (Synthroid) 200 mcg BEFORE BREAKFAST NGT Last administered on 06/11/18 05:57; Admin Dose 200 MCG; Start 06/07/18 at 07:00 Senna (Senokot) 1 tab BID NGT Last administered on 06/11/18 08:55; Admin Dose 1 TAB; Start 06/07/18 at 09:00 Sevelamer Carbonate (Renvela) 0.8 gm WITH MEALS NGT Last administered on 06/09/18 17:34; Admin Dose 0.8 GM; Start 06/07/18 at 07:35 Epoetin Geo-epbx (RETACRIT(esrd)) 10,000 unit MoWeFr@1700 SC Last administered on 06/10/18 18:31; Admin Dose 10,000 UNIT; Start 06/08/18 at 17:00 Famotidine (Pepcid) 20 mg DAILY NGT Last administered on 06/11/18 08:56; Admin Dose 20 MG; Start 06/09/18 at 09:00 Sacubitril/ Valsartan (Entresto 24 Mg-26 Mg) 1 tab BID PO Last administered on 06/11/18 08:56; Admin Dose 1 TAB; Start 06/10/18 at 21:00 Metoprolol Succinate (Toprol Xl) 25 mg BID PO Last administered on 06/11/18 08:57; Admin Dose 25 MG; Start 06/09/18 at 21:00 Naproxen (Naprosyn) 500 mg BID PRN PO pain; Start 06/10/18 at 10:30 Alprazolam (Xanax) 0.25 mg Q12H PRN PO ANXIETY Last administered on 06/11/18 13:42; Admin Dose 0.25 MG; Start 06/10/18 at 10:30 Diagnostic Test (Pha) (Accu-Chek) 1 ea AC MEALS AND BEDTIME XX Last administered on 06/11/18 11:17; Admin Dose 1 EA; Start 06/11/18 at 07:00 Diphenhydramine HCl (Benadryl) 25 mg Q8H PRN PO ITCHING; Start 06/11/18 at 16:30 ARASELI MILLER MD June 11, 2018 17:01
[2018-06-11] MEDS: DIPHENHYDRAMINE 25 MG CAP PO PRN (17:03)
--- NOTE | 2018-06-11 17:03 | PDOCDIS ---
Discharge Instructions CONDITION [id number] Patient Condition: [id number] Stable HOME CARE INSTRUCTIONS: [id number] Diet Instructions: [id number] UP/APPOINTMENTS Follow-up Plan HD as scheduled. Cardiology 10 days. PMD 14 days ARASELI MILLER MD June 11, 2018 17:02
[2018-06-11] MEDS: ATORVASTATIN 80 MG TAB NGT SCH (20:28)
[2018-06-12] VITALS (26 sets, daily range): BP systolic 65–151; BP diastolic 44–89; PULSE 63–84; RESP 17–20
[2018-06-12] MEDS: LEVOTHYROXINE 100 MCG TAB NGT SCH (06:05)
[2018-06-12] MEDS: ACCU-CHEK XX SCH ×4 (07:00→20:47)
[2018-06-12] MEDS: SEVELAMER CARBONATE 0.8 GM PKT NGT SCH ×3 (08:00→18:00)
--- NOTE | 2018-06-12 08:40 | PN ---
DATE: 06/12/2018 SUBJECTIVE: The patient is stable, no events overnight. OBJECTIVE: VITAL SIGNS: Blood pressure is 121/89, respirations 17, pulse 77, temperature 98.6. HEENT: Head is normocephalic. NECK: Supple. HEART: Regular rate. LUNGS: Show diminished breath sounds at the base. ABDOMEN: Soft, nontender to palpation. No rebound or guarding. EXTREMITIES: Negative for clubbing, cyanosis, no edema. DERMATOLOGIC: No rashes. MUSCULOSKELETAL: No joint effusion. NEUROLOGIC: No change in exam. MEDICATIONS: Reviewed. LABORATORY DATA: Reviewed. ASSESSMENT AND PLAN: 1. End-stage renal disease. Plan is for hemodialysis today. We will dialyze for 3 hours 3k bath, c alcium 2.5. 2. Hypertension, improved. Continue current blood pressure regimen. 3. Anemia. Continue to monitor hemoglobin and hematocrit levels. Hold Epogen at this time. 4. Mineral bone disorder, monitor calcium and phosphorus levels. Continue phosphate binders. 5. Encephalopathy, improving. 6. Coronary artery disease. Continue current treatment plan. 7. Dyslipidemia. Continue statin therapy. 8. History of cardiac arrest. 9. Volume overload, improving. 10. Status post respiratory failure. Dictated By: HARVEY LUCIO DO NR/NTS Conf#: [id number] DID#: [id number] CC: JJ SINGER M.D.; MARGARITO VIVAR MD;*EndCC*
[2018-06-12] MEDS: SENNA TAB NGT SCH ×2 (09:00→20:40)
[2018-06-12] MEDS: TIOTROPIUM 18 MCG CAPSULE INHA DEV INH SCH (09:00)
[2018-06-12] MEDS: BALSAM PERU/CASTOR OIL 60 GM TUBE TOP SCH (09:00)
[2018-06-12] MEDS: SACUBITRIL/VALSARTAN (24mg-26mg) TABLET PO SCH ×2 (11:02→20:40)
[2018-06-12] MEDS: LEVETIRACETAM 500 MG TAB NGT SCH ×2 (11:02→20:40)
[2018-06-12] MEDS: ASPIRIN 81 MG TAB NGT SCH (11:03)
[2018-06-12] MEDS: FAMOTIDINE 20 MG TAB NGT SCH (11:03)
[2018-06-12] MEDS: CLOPIDOGREL 75 MG TAB NGT SCH (11:03)
[2018-06-12] MEDS: METOPROLOL (XL) 25 MG TAB PO SCH ×2 (11:03→20:40)
[2018-06-12] MEDS: HEPARIN 5,000 UNIT/1 ML VIAL SC SCH ×2 (11:09→20:51)
--- NOTE | 2018-06-12 11:51 | CONS ---
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 The angiogram I performed prior to that in approximately November 2017 with patent LAD, circumflex was a small caliber vessel and diseased, not amendable to percutaneous coronary intervention and a complete occlusion of the RCA which was recently fixed at [facility]. I have requested the films from [facility] (which we have still not received), but based on the history, I do not think any further for percutaneous coronary intervention is necessary at the current time -Fluid management via hemodialysis as per nephrology -DC planning Consultation Date/Type/Reason Admit Date/Time Jun 06, 2018 at 08:42 Initial Consult Date 06/07/18 Type of Consult Cardiology Requesting Provider: MARGARITO VIVAR MD Date/Time of Note DATE: 06/12/18 TIME: 11:50 24 HR Interval Summary Free Text/Dictation No shortness of breath, chest pain, palpitations Exam/Review of Systems Vital Signs Vitals Vital Signs Date Temp Pulse Resp B/P (MAP) Pulse Ox O2 O2 Flow FiO2 Time Delivery Rate 06/12/18 76 10:30 06/12/18 98.6 17 121/89 100 Room Air 07:23 (100) 06/11/18 2.0 15:05 Intake and Output 06/11/18 06/11/18 06/12/18 1515:00 23:00 07:00 IntakeIntake Total 780 ml 300 ml BalanceBalance 780 ml 300 ml Exam Constitutional: alert, oriented (No apparent distress) Head: normocephalic Respiratory: other (Coarse breath sounds bilaterally, no wheezing) Cardiovascular: regular rate and rhythm (S1-S2 heard) Gastrointestinal: soft, non-tender, bowel sounds Extremities: edema (Trace) Labs Result Diagram: 06/12/18 0446 06/08/18 0330 Results 24hrs Laboratory Tests Test 06/11/18 17:06 06/11/18 20:27 06/12/18 04:46 06/12/18 07:53 Bedside Glucose 123 165 99 Hemoglobin 11.5 #L Medications Medications Current Medications Albuterol/ Ipratropium (Duoneb) 3 ml Q2H RESP THERAPY PRN NEB SHORTNESS OF BREATH; Start 06/06/18 at 10:30 Acetaminophen (Tylenol Supp) 650 mg Q4H PRN [place] PAIN LEVEL 1-3 OR FEVER; Start 06/06/18 at 10:30 Heparin Sodium (Porcine) (Heparin (5000 Units/1ml)) 5,000 unit Q12 SC Last administered on 06/12/18 11:09; Admin Dose 5,000 UNIT; Start 06/06/18 at 21:00 Nitroglycerin (Nitroglycerin (Sl Tab) 0.4 Mg) 1 tab [id number] PRN SL CHEST PAIN; Start 06/06/18 at 10:30 Tiotropium [place] (Spiriva) 1 inh DAILY INH Last administered on 06/10/18 08:49; Admin Dose 1 INH; Start 06/07/18 at 09:00 Zolpidem Tartrate (Ambien) 5 mg HS PRN PO INSOMNIA Last administered on 06/09/18 20:50; Admin Dose 5 MG; Start 06/06/18 at 21:00 Aspirin (Aspirin) 81 mg DAILY NGT Last administered on 06/12/18 11:03; Admin Dose 81 MG; Start 06/07/18 at 09:00 Atorvastatin Calcium (Lipitor) 80 mg QHS NGT Last administered on 06/11/18 20:28; Admin Dose 80 MG; Start 06/07/18 at 21:00 Clopidogrel Bisulfate (plaVIX) 75 mg DAILY NGT Last administered on 06/12/18 11:03; Admin Dose 75 MG; Start 06/07/18 at 09:00 Levetiracetam (Keppra) 500 mg BID NGT Last administered on 06/12/18 11:02; Admin Dose 500 MG; Start 06/07/18 at 09:00 Levothyroxine Sodium (Synthroid) 200 mcg BEFORE BREAKFAST NGT Last administered on 06/12/18 06:05; Admin Dose 200 MCG; Start 06/07/18 at 07:00 Senna (Senokot) 1 tab BID NGT Last administered on 06/11/18 20:28; Admin Dose 1 TAB; Start 06/07/18 at 09:00 Sevelamer Carbonate (Renvela) 0.8 gm WITH MEALS NGT Last administered on 06/09/18 17:34; Admin Dose 0.8 GM; Start 06/07/18 at 07:35 Epoetin Geo-epbx (RETACRIT(esrd)) 10,000 unit MoWeFr@1700 SC Last administered on 06/10/18 18:31; Admin Dose 10,000 UNIT; Start 06/08/18 at 17:00; Status Hold Famotidine (Pepcid) 20 mg DAILY NGT Last administered on 06/12/18 11:03; Admin Dose 20 MG; Start 06/09/18 at 09:00 Sacubitril/ Valsartan (Entresto 24 Mg-26 Mg) 1 tab BID PO Last administered on 06/12/18 11:02; Admin Dose 1 TAB; Start 06/10/18 at 21:00 Metoprolol Succinate (Toprol Xl) 25 mg BID PO Last administered on 06/12/18 11:03; Admin Dose 25 MG; Start 06/09/18 at 21:00 Naproxen (Naprosyn) 500 mg BID PRN PO pain; Start 06/10/18 at 10:30 Alprazolam (Xanax) 0.25 mg Q12H PRN PO ANXIETY Last administered on 06/11/18 13:42; Admin Dose 0.25 MG; Start 06/10/18 at 10:30 Diagnostic Test (Pha) (Accu-Chek) 1 ea AC MEALS AND BEDTIME XX Last administered on 06/12/18 07:00; Admin Dose 1 EA; Start 06/11/18 at 07:00 Diphenhydramine HCl (Benadryl) 25 mg Q8H PRN PO ITCHING Last administered on 06/11/18 17:03; Admin Dose 25 MG; Start 06/11/18 at 16:30 Heri Schaefer DO June 12, 2018 11:51
[2018-06-12] MEDS: DIPHENHYDRAMINE 25 MG CAP PO PRN ×2 (12:01→21:40)
[2018-06-12] MEDS: ALPRAZOLAM 0.25 MG TAB PO PRN ×2 (13:21→23:11)
--- NOTE | 2018-06-12 16:04 | PN ---
Date/Time of Note Date/Time of Note DATE: 06/12/18 TIME: 16:01 Assessment/Plan VTE Prophylaxis Risk score (from Ns)>0 risk: 1 SCD applied (from Ns): No SCD contraindicated: other Pharmacological prophylaxis: heparin Lines/Catheters [facility] Mid Line Urinary Cath still in place: No Assessment/Plan Result Diagram: 06/12/18 0446 06/08/18 0330 Results 24hrs Laboratory Tests Test 06/11/18 17:06 06/11/18 20:27 06/12/18 04:46 06/12/18 07:53 Bedside Glucose 123 165 99 Hemoglobin 11.5 #L Test 06/12/18 12:10 Bedside Glucose 85 Subjective 24 Hr Interval Summary Free Text/Dictation no further cardiac events. still fluid overload, had hd today. pruritis on xanax and benadryl and quite sleepy. on rousing says not feeling very well. vs noted. sleepy lungs rel clear, some edema will cont w current rx till cleared forf dc by renal, cards, pt lives at home, perhaps tomorrow Skin: pruritis Exam/Review of Systems Exam Vitals Vital Signs Date Temp Pulse Resp B/P (MAP) Pulse Ox O2 O2 Flow FiO2 Time Delivery Rate 06/12/18 98.6 82 19 65/ 98 12:24 06/12/18 Room Air 07:23 06/11/18 2.0 15:05 Intake and Output 06/11/18 06/11/18 06/12/18 1515:00 23:00 07:00 IntakeIntake Total 780 ml 300 ml BalanceBalance 780 ml 300 ml Results Results 24hrs Laboratory Tests Test 06/11/18 17:06 06/11/18 20:27 06/12/18 04:46 06/12/18 07:53 Bedside Glucose 123 165 99 Hemoglobin 11.5 #L Test 06/12/18 12:10 Bedside Glucose 85 Medications Medication Current Medications Albuterol/ Ipratropium (Duoneb) 3 ml Q2H RESP THERAPY PRN NEB SHORTNESS OF BREATH; Start 06/06/18 at 10:30 Acetaminophen (Tylenol Supp) 650 mg Q4H PRN [place] PAIN LEVEL 1-3 OR FEVER; Start 06/06/18 at 10:30 Heparin Sodium (Porcine) (Heparin (5000 Units/1ml)) 5,000 unit Q12 SC Last administered on 06/12/18 11:09; Admin Dose 5,000 UNIT; Start 06/06/18 at 21:00 Nitroglycerin (Nitroglycerin (Sl Tab) 0.4 Mg) 1 tab [id number] PRN SL CHEST PAIN; Start 06/06/18 at 10:30 Tiotropium [place] (Spiriva) 1 inh DAILY INH Last administered on 06/10/18 08:49; Admin Dose 1 INH; Start 06/07/18 at 09:00 Zolpidem Tartrate (Ambien) 5 mg HS PRN PO INSOMNIA Last administered on 06/09/18 20:50; Admin Dose 5 MG; Start 06/06/18 at 21:00 Aspirin (Aspirin) 81 mg DAILY NGT Last administered on 06/12/18 11:03; Admin Dose 81 MG; Start 06/07/18 at 09:00 Atorvastatin Calcium (Lipitor) 80 mg QHS NGT Last administered on 06/11/18 20:28; Admin Dose 80 MG; Start 06/07/18 at 21:00 Clopidogrel Bisulfate (plaVIX) 75 mg DAILY NGT Last administered on 06/12/18 11:03; Admin Dose 75 MG; Start 06/07/18 at 09:00 Levetiracetam (Keppra) 500 mg BID NGT Last administered on 06/12/18 11:02; Admin Dose 500 MG; Start 06/07/18 at 09:00 Levothyroxine Sodium (Synthroid) 200 mcg BEFORE BREAKFAST NGT Last administered on 06/12/18 06:05; Admin Dose 200 MCG; Start 06/07/18 at 07:00 Senna (Senokot) 1 tab BID NGT Last administered on 06/11/18 20:28; Admin Dose 1 TAB; Start 06/07/18 at 09:00 Sevelamer Carbonate (Renvela) 0.8 gm WITH MEALS NGT Last administered on 06/09/18 17:34; Admin Dose 0.8 GM; Start 06/07/18 at 07:35 Epoetin Geo-epbx (RETACRIT(esrd)) 10,000 unit MoWeFr@1700 SC Last administered on 06/10/18 18:31; Admin Dose 10,000 UNIT; Start 06/08/18 at 17:00; Status Hold Famotidine (Pepcid) 20 mg DAILY NGT Last administered on 06/12/18 11:03; Admin Dose 20 MG; Start 06/09/18 at 09:00 Sacubitril/ Valsartan (Entresto 24 Mg-26 Mg) 1 tab BID PO Last administered on 06/12/18 11:02; Admin Dose 1 TAB; Start 06/10/18 at 21:00 Metoprolol Succinate (Toprol Xl) 25 mg BID PO Last administered on 06/12/18 11:03; Admin Dose 25 MG; Start 06/09/18 at 21:00 Naproxen (Naprosyn) 500 mg BID PRN PO pain; Start 06/10/18 at 10:30 Alprazolam (Xanax) 0.25 mg Q12H PRN PO ANXIETY Last administered on 06/12/18 13:21; Admin Dose 0.25 MG; Start 06/10/18 at 10:30 Diagnostic Test (Pha) (Accu-Chek) 1 ea AC MEALS AND BEDTIME XX Last administered on 06/12/18 12:10; Admin Dose 1 EA; Start 06/11/18 at 07:00 Diphenhydramine HCl (Benadryl) 25 mg Q8H PRN PO ITCHING Last administered on 06/12/18 12:01; Admin Dose 25 MG; Start 06/11/18 at 16:30 JEFFREY PADRON MD June 12, 2018 16:04
[2018-06-12] MEDS: ATORVASTATIN 80 MG TAB NGT SCH (20:40)
[2018-06-13] VITALS (10 sets, daily range): BP systolic 102–125; BP diastolic 54–60; PULSE 73–84; RESP 18–20
[2018-06-13] MEDS: LEVOTHYROXINE 100 MCG TAB NGT SCH (06:16)
[2018-06-13] MEDS: DIPHENHYDRAMINE 25 MG CAP PO PRN ×2 (06:16→21:22)
[2018-06-13] MEDS: ACCU-CHEK XX SCH ×4 (06:19→20:22)
--- NOTE | 2018-06-13 06:40 | PN ---
Date/Time of Note Date/Time of Note DATE: 06/13/18 TIME: 06:31 Assessment/Plan VTE Prophylaxis Risk score (from Ns)>0 risk: 1 SCD applied (from Ns): No SCD contraindicated: low risk/ambulating Pharmacological prophylaxis: heparin Lines/Catheters IV Catheter Type (from Nrs): Mid Line Urinary Cath still in place: No Assessment/Plan Problems: (1) Uremic pruritus Status: Acute Comment: Will not increase antihistamines as this pt. has a h/o delirium in previous visits. Will add topical emollients and lyrica 25 mg tid. Monitor this symptom. (2) Volume overload Status: Acute Comment: Due to combination of ESRD and CHF. Pt. s/p resp. failure and intubation. Now diuresed enough to resolve resp. failure but still w/ volume O/L. Defer to nephrology and cardiology to optimize pt. Qualifiers: Hypervolemia type: other Qualified Codes: E87.79 - Other fluid overload (3) Congestive heart failure Status: Chronic Comment: On Entresto, metoprolol. Defer to cardiology. (4) End stage renal disease on dialysis due to type 2 diabetes mellitus Status: Chronic Comment: Cont. HD per nephrology. Glucose levels mostly controlled although slightly elevated this am. If recurrent elevations occur may add tradjenta. (5) Essential (primary) hypertension Status: Chronic Comment: BP controlled. Cont. metoprolol, entresto. (6) Hyperlipidemia Status: Chronic Comment: Cont. 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 Cont. clopidogrel Qualifiers: [place] vs. transplanted heart: [place] heart Qualified Codes: I25.10 - Atherosclerotic heart disease of [place] coronary artery without angina pectoris (8) H/O thyroidectomy Status: Chronic Comment: Cont. LT4 replacement. Cont Hosp Indication/DC Plan: Case management for d/c planning. Result Diagram: 06/12/18 0446 Results 24hrs Laboratory Tests Test 06/12/18 07:53 06/12/18 12:10 06/12/18 18:21 06/12/18 20:45 Bedside Glucose 99 85 165 129 Test 06/13/18 06:19 Bedside Glucose 216 Subjective 24 Hr Interval Summary Constitutional: no complaints Respiratory: no complaints Cardiovascular: no complaints Gastrointestinal: no complaints Genitourinary: no complaints Musculoskeletal: no complaints Skin: pruritis (diffuse) Neurologic: no complaints Exam/Review of Systems Exam Vitals VS - Last 72 Hours, by Label Date Temp Pulse Resp B/P (MAP) Pulse Ox O2 O2 Flow FiO2 Time Delivery Rate 06/13/18 84 04:00 06/13/18 97.8 79 18 102/54 93 03:55 (70) 06/13/18 81 00:00 06/12/18 98.9 84 18 125/65 98 23:46 (85) 06/12/18 79 20:00 06/12/18 98.1 79 18 105/53 92 19:43 (70) 06/12/18 98.0 80 18 122/62 97 Room Air 16:25 (82) 06/12/18 79 16:00 06/12/18 98.6 82 19 65/ 98 12:24 06/12/18 76 12:00 06/12/18 76 10:30 06/12/18 76 10:15 06/12/18 77 10:00 06/12/18 70 09:45 06/12/18 75 09:30 06/12/18 79 09:15 06/12/18 79 09:00 06/12/18 77 08:45 06/12/18 78 08:30 06/12/18 78 08:15 06/12/18 77 08:00 06/12/18 79 08:00 06/12/18 76 07:45 06/12/18 72 07:30 06/12/18 98.6 77 17 121/89 100 Room Air 07:23 (100) 06/12/18 80 20 121/89 100 Room Air 07:20 (100) 06/12/18 98.0 74 17 122/69 97 04:31 (86) 06/12/18 77 04:00 06/12/18 97.8 76 17 125/64 98 00:07 (84) 06/12/18 79 00:00 06/11/18 79 20:00 06/11/18 97.7 78 17 129/62 98 19:37 (84) 06/11/18 78 16:34 06/11/18 97.8 81 22 149/63 96 Nasal 2.0 15:05 (91) Cannula 06/11/18 74 12:04 06/11/18 98.0 75 22 125/65 96 Nasal 11:30 (85) Cannula 06/11/18 73 08:06 06/11/18 96.8 74 22 126/58 96 Room Air 2.0 07:22 (80) 06/11/18 98.0 79 18 132/62 98 04:14 (85) 06/11/18 67 124/60 04:03 (81) 152/67 (95) 160/78 (105) 06/11/18 74 04:00 06/11/18 75 01:35 06/11/18 98.1 76 17 130/64 98 00:35 (86) 06/10/18 78 20:00 06/10/18 97.0 78 17 132/62 98 19:40 (85) 06/10/18 78 18:35 06/10/18 78 18:15 06/10/18 79 18:00 06/10/18 81 17:45 06/10/18 78 17:30 06/10/18 78 17:15 06/10/18 78 17:00 06/10/18 80 16:45 06/10/18 80 16:30 06/10/18 80 16:15 06/10/18 80 16:13 06/10/18 79 16:00 06/10/18 77 15:45 06/10/18 98.0 77 18 123/50 98 Room Air 15:39 (74) 06/10/18 77 15:30 06/10/18 80 20 139/60 98 Nasal 2.0 15:15 (86) Cannula 06/10/18 78 15:15 06/10/18 88 12:10 06/10/18 97.7 89 19 134/60 95 Room Air 11:25 (84) 06/10/18 91 08:08 06/10/18 98.0 91 18 119/69 94 Room Air 07:12 (86) Vital Signs Date Temp Pulse Resp B/P (MAP) Pulse Ox O2 O2 Flow FiO2 Time Delivery Rate 06/13/18 84 04:00 06/13/18 97.8 18 102/54 93 03:55 (70) 06/12/18 Room Air 16:25 06/11/18 2.0 15:05 Intake and Output 06/12/18 06/12/18 06/13/18 1515:00 23:00 07:00 IntakeIntake Total 720 ml OutputOutput Total 2600 ml BalanceBalance -2600 ml 720 ml Constitutional: alert, oriented, frail Psych: no complaints, nl mood/affect Respiratory: clear to auscultation, normal air movement Cardiovascular: regular rate and rhythm, murmurs/extra sounds; No edema, No rub Gastrointestinal: soft, nl liver, spleen, non-tender, bowel sounds; No mass, No rebound or guarding Musculoskeletal: nl extremities to inspection Extremities: No cyanosis, No clubbing, No edema Neurological: 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 TECHNICIAN II-XII 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, nl mental status, nl speech, nl strength Additional Comments Bedside Glucose - 72 Hours Test 06/10/18 08:47 06/10/18 12:01 06/10/18 17:34 06/10/18 20:28 Bedside 97 93 78 62 Glucose mg/dL (70-220) mg/dL (70-220) mg/dL (70-220) mg/dL (70-220) L Test 06/10/18 21:21 06/11/18 07:30 06/11/18 11:14 06/11/18 17:06 Bedside 78 81 77 123 Glucose mg/dL (70-220) mg/dL (70-220) mg/dL (70-220) mg/dL (70-220) Test 06/11/18 20:27 06/12/18 07:53 06/12/18 12:10 06/12/18 18:21 Bedside 165 99 85 165 Glucose mg/dL (70-220) mg/dL (70-220) mg/dL (70-220) mg/dL (70-220) Test 06/12/18 20:45 06/13/18 06:19 Bedside 129 216 Glucose mg/dL (70-220) mg/dL (70-220) Results Results 24hrs Laboratory Tests Test 06/12/18 07:53 06/12/18 12:10 06/12/18 18:21 06/12/18 20:45 Bedside Glucose 99 85 165 129 Test 06/13/18 06:19 Bedside Glucose 216 Medications Medication Current Medications Albuterol/ Ipratropium (Duoneb) 3 ml Q2H RESP THERAPY PRN NEB SHORTNESS OF BREATH; Start 4/27/19 at 10:30 Acetaminophen (Tylenol Supp) 650 mg Q4H PRN [place] PAIN LEVEL 1-3 OR FEVER; Start 06/06/18 at 10:30 Heparin Sodium (Porcine) (Heparin (5000 Units/1ml)) 5,000 unit Q12 SC Last administered on 06/12/18 11:09; Admin Dose 5,000 UNIT; Start 06/06/18 at 21:00 Nitroglycerin (Nitroglycerin (Sl Tab) 0.4 Mg) 1 tab [id number] PRN SL CHEST PAIN; Start 06/06/18 at 10:30 Tiotropium [place] (Spiriva) 1 inh DAILY INH Last administered on 06/10/18 0 8:49; Admin Dose 1 INH; Start 06/07/18 at 09:00 Zolpidem Tartrate (Ambien) 5 mg HS PRN PO INSOMNIA Last administered on 06/09/18 20:50; Admin Dose 5 MG; Start 06/06/18 at 21:00 Aspirin (Aspirin) 81 mg DAILY NGT Last administered on 06/12/18 11:03; Admin Dose 81 MG; Start 06/07/18 at 09:00 Atorvastatin Calcium (Lipitor) 80 mg QHS NGT Last administered on 06/12/18 20:40; Admin Dose 80 MG; Start 06/07/18 at 21:00 Clopidogrel Bisulfate (plaVIX) 75 mg DAILY NGT Last administered on 06/12/18 11:03; Admin Dose 75 MG; Start 06/07/18 at 09:00 Levetiracetam (Keppra) 500 mg BID NGT Last administered on 06/12/18 20:40; Admin Dose 500 MG; Start 06/07/18 at 09:00 Levothyroxine Sodium (Synthroid) 200 mcg BEFORE BREAKFAST NGT Last administered on 06/13/18 06:16; Admin Dose 200 MCG; Start 06/07/18 at 07:00 Senna (Senokot) 1 tab BID NGT Last administered on 06/11/18 20:28; Admin Dose 1 TAB; Start 06/07/18 at 09:00 Sevelamer Carbonate (Renvela) 0.8 gm WITH MEALS NGT Last administered on 06/09/18 17:34; Admin Dose 0.8 GM; Start 06/07/18 at 07:35 Epoetin Geo-epbx (RETACRIT(esrd)) 10,000 unit MoWeFr@1700 SC Last administered on 06/10/18 18:31; Admin Dose 10,000 UNIT; Start 06/08/18 at 17:00; Status Hold Famotidine (Pepcid) 20 mg DAILY NGT Last administered on 06/12/18 11:03; Admin Dose 20 MG; Start 06/09/18 at 09:00 Sacubitril/ Valsartan (Entresto 24 Mg-26 Mg) 1 tab BID PO Last administered on 06/12/18 20:40; Admin Dose 1 TAB; Start 06/10/18 at 21:00 Metoprolol Succinate (Toprol Xl) 25 mg BID PO Last administered on 06/12/18 11:03; Admin Dose 25 MG; Start 06/09/18 at 21:00 Naproxen (Naprosyn) 500 mg BID PRN PO pain; Start 06/10/18 at 10:30 Alprazolam (Xanax) 0.25 mg Q12H PRN PO ANXIETY Last administered on 06/12/18 23:11; Admin Dose 0.25 MG; Start 06/10/18 at 10:30 Diagnostic Test (Pha) (Accu-Chek) 1 ea AC MEALS AND BEDTIME XX Last administered on 06/13/18 06:19; Admin Dose 1 EA; Start 06/11/18 at 07:00 Diphenhydramine HCl (Benadryl) 25 mg Q8H PRN PO ITCHING Last administered on 06/13/18 06:16; Admin Dose 25 MG; Start 06/11/18 at 16:30 Multi-Ingredient Lotion (Cetaphil Cleanser) 1 applic TID TOP ; Start 06/13/18 at 09:00 Pregabalin (Lyrica) 25 mg TID PO ; Start 06/13/18 at 09:00 KEZIA COLBERT MD June 13, 2018 06:40
[2018-06-13] MEDS: SEVELAMER CARBONATE 0.8 GM PKT NGT SCH ×3 (08:00→17:39)
[2018-06-13] MEDS: BALSAM PERU/CASTOR OIL 60 GM TUBE TOP SCH (08:09)
[2018-06-13] MEDS: CETAPHIL CLEANSER TOP SCH ×3 (08:09→20:16)
[2018-06-13] MEDS: LEVETIRACETAM 500 MG TAB NGT SCH ×2 (08:10→20:17)
[2018-06-13] MEDS: FAMOTIDINE 20 MG TAB NGT SCH (08:10)
[2018-06-13] MEDS: SENNA TAB NGT SCH ×2 (08:10→20:22)
[2018-06-13] MEDS: CLOPIDOGREL 75 MG TAB NGT SCH (08:10)
[2018-06-13] MEDS: SACUBITRIL/VALSARTAN (24mg-26mg) TABLET PO SCH ×2 (08:10→20:17)
[2018-06-13] MEDS: METOPROLOL (XL) 25 MG TAB PO SCH ×2 (08:11→20:17)
[2018-06-13] MEDS: PREGABALIN 25 MG CAP PO SCH ×3 (08:11→20:17)
[2018-06-13] MEDS: ASPIRIN 81 MG TAB NGT SCH (08:11)
[2018-06-13] MEDS: HEPARIN 5,000 UNIT/1 ML VIAL SC SCH (08:16)
[2018-06-13] MEDS: TIOTROPIUM 18 MCG CAPSULE INHA DEV INH SCH (10:30)
--- NOTE | 2018-06-13 11:38 | CONS ---
Assessment/Plan Assessment/Plan Hospital Course (Demo Recall) 1. End-stage renal disease. Plan is for hemodialysis tomorrow. 2. Hypertension, improved. Continue current blood pressure regimen. 3. Anemia. Continue to monitor hemoglobin and hematocrit levels. Hold Epogen at this time. 4. Mineral bone disorder, monitor calcium and phosphorus levels. Continue phosphate binders. 5. Encephalopathy, improving. 6. Coronary artery disease. Continue current treatment plan. 7. Dyslipidemia. Continue statin therapy. 8. History of cardiac arrest. 9. Volume overload, improving. 10. Status post respiratory failure. Consultation Date/Type/Reason Admit Date/Time Jun 06, 2018 at 08:42 Initial Consult Date 06/07/18 Requesting Provider: MARGARITO VIVAR MD Date/Time of Note DATE: 06/13/18 TIME: 11:37 24 HR Interval Summary Free Text/Dictation denies shortness of breath, n/v s/p HD yesterday dw rn gen nad cv rrr pulm ctab abd soft, nd, nt +bs ext: no edema Exam/Review of Systems Exam Vitals Vital Signs Date Temp Pulse Resp B/P (MAP) Pulse Ox O2 O2 Flow FiO2 Time Delivery Rate 06/13/18 98.2 78 20 122/59 98 11:10 (80) 06/12/18 Room Air 16:25 06/11/18 2.0 15:05 Intake and Output 06/12/18 06/12/18 06/13/18 1515:00 23:00 07:00 IntakeIntake Total 720 ml 600 ml OutputOutput Total 2600 ml BalanceBalance -2600 ml 720 ml 600 ml Results Result Diagram: 06/12/18 0446 Results 24hrs Laboratory Tests Test 06/12/18 12:10 06/12/18 18:21 06/12/18 20:45 06/13/18 06:19 Bedside Glucose 85 165 129 216 Medications Medication Current Medications Albuterol/ Ipratropium (Duoneb) 3 ml Q2H RESP THERAPY PRN NEB SHORTNESS OF BREATH; Start 06/06/18 at 10:30 Acetaminophen (Tylenol Supp) 650 mg Q4H PRN [place] PAIN LEVEL 1-3 OR FEVER; Start 06/06/18 at 10:30 Heparin Sodium (Porcine) (Heparin (5000 Units/1ml)) 5,000 unit Q12 SC Last administered on 06/12/18 11:09; Admin Dose 5,000 UNIT; Start 06/06/18 at 21:00 Nitroglycerin (Nitroglycerin (Sl Tab) 0.4 Mg) 1 tab [id number] PRN SL CHEST PAIN; Start 06/06/18 at 10:30 Tiotropium [place] (Spiriva) 1 inh DAILY INH Last administered on 06/13/18 10:30; Admin Dose 1 INH; Start 06/07/18 at 09:00 Zolpidem Tartrate (Ambien) 5 mg HS PRN PO INSOMNIA Last administered on 06/09/18 20:50; Admin Dose 5 MG; Start 06/06/18 at 21:00 Aspirin (Aspirin) 81 mg DAILY NGT Last administered on 06/13/18 08:11; Admin Dose 81 MG; Start 06/07/18 at 09:00 Atorvastatin Calcium (Lipitor) 80 mg QHS NGT Last administered on 06/12/18 20:40; Admin Dose 80 MG; Start 06/07/18 at 21:00 Clopidogrel Bisulfate (plaVIX) 75 mg DAILY NGT Last administered on 06/13/18 08:10; Admin Dose 75 MG; Start 06/07/18 at 09:00 Levetiracetam (Keppra) 500 mg BID NGT Last administered on 06/13/18 08:10; Admin Dose 500 MG; Start 06/07/18 at 09:00 Levothyroxine Sodium (Synthroid) 200 mcg BEFORE BREAKFAST NGT Last administered on 06/13/18 06:16; Admin Dose 200 MCG; Start 06/07/18 at 07:00 Senna (Senokot) 1 tab BID NGT Last administered on 06/13/18 08:10; Admin Dose 1 TAB; Start 06/07/18 at 09:00 Sevelamer Carbonate (Renvela) 0.8 gm WITH MEALS NGT Last administered on 06/09/18 17:34; Admin Dose 0.8 GM; Start 06/07/18 at 07:35 Epoetin Geo-epbx (RETACRIT(esrd)) 10,000 unit MoWeFr@1700 SC Last administered on 06/10/18 18:31; Admin Dose 10,000 UNIT; Start 06/08/18 at 17:00; Status Hold Famotidine (Pepcid) 20 mg DAILY NGT Last administered on 06/13/18 08:10; Admin Dose 20 MG; Start 06/09/18 at 09:00 Sacubitril/ Valsartan (Entresto 24 Mg-26 Mg) 1 tab BID PO Last administered on 06/13/18 08:10; Admin Dose 1 TAB; Start 06/10/18 at 21:00 Metoprolol Succinate (Toprol Xl) 25 mg BID PO Last administered on 06/13/18 08:11; Admin Dose 25 MG; Start 06/09/18 at 21:00 Naproxen (Naprosyn) 500 mg BID PRN PO pain; Start 06/10/18 at 10:30 Alprazolam (Xanax) 0.25 mg Q12H PRN PO ANXIETY Last administered on 06/12/18 23:11; Admin Dose 0.25 MG; Start 06/10/18 at 10:30 Diagnostic Test (Pha) (Accu-Chek) 1 ea AC MEALS AND BEDTIME XX Last administered on 06/13/18 06:19; Admin Dose 1 EA; Start 06/11/18 at 07:00 Diphenhydramine HCl (Benadryl) 25 mg Q8H PRN PO ITCHING Last administered on 06/13/18 06:16; Admin Dose 25 MG; Start 06/11/18 at 16:30 Multi-Ingredient Lotion (Cetaphil Cleanser) 1 applic TID TOP Last administered on 06/13/18 08:09; Admin Dose 1 APPLIC; Start 06/13/18 at 09:00 Pregabalin (Lyrica) 25 mg TID PO Last administered on 06/13/18 08:11; Admin Dose 25 MG; Start 06/13/18 at 09:00 YESENIA JACOME MD June 13, 2018 11:38
[2018-06-13] MEDS: ATORVASTATIN 80 MG TAB NGT SCH (20:17)
[2018-06-14] VITALS (21 sets, daily range): BP systolic 94–151; BP diastolic 52–72; PULSE 73–82; RESP 16–18
[2018-06-14] MEDS: DIPHENHYDRAMINE 25 MG CAP PO PRN (06:10)
[2018-06-14] MEDS: LEVOTHYROXINE 100 MCG TAB NGT SCH (06:10)
[2018-06-14] MEDS: ACCU-CHEK XX SCH ×2 (06:14→12:36)
--- NOTE | 2018-06-14 07:05 | DS ---
Date/Time of Note Date/Time of Note DATE: 06/14/18 TIME: 06:55 Discharge Summary Admission/Discharge Info Admit Date/Time Jun 06, 2018 at 08:42 Discharge Date/Time 06/14/2018 @ 1200 Discharge Diagnosis Volume overload w/ respiratory failure Patient Condition: Fair Consults Alyangar: pulmonary; Vahdat: cardiology; Pati: nephrology Procedures Endotracheal intubation in ER on 06/06/18. Extubated on 06/07/18; Brain CT: 1. No acute intracranial abnormality. 2. Mild generalized parenchymal volume loss. 3. Mild chronic microvascular white matter ischemic disease. 4. Atherosclerosis. 5. Left maxillary sinus retention cyst or polyp. Echocardiogram: Normal left ventricular cavity size. Mild concentric left ventricular hypertrophy. Mild to moderate left ventricular systolic dysfunction. Ejection fraction is visually estimated at 40 %. Tissue Doppler/Mitral Doppler indices are consistent with pseudonormalization with mildly elevated left atrial pressure (Stage II diastolic dysfunction). Normal right ventricular size. Normal right ventricular systolic function. There is moderate enlargement of left atrium. The right atrium is normal in size. Moderate mitral valve regurgitation. No significant aortic stenosis or insufficiency. Estimated peak PA systolic pressure 44 mmHg. There is mild tricuspid regurgitation. Normal pericardium with no significant pericardial effusion. Hx of Present Illness 53-year-old -[place] female sent over from her dialysis unit. She had been receiving dialysis when she became short of breath. They were actually c oncerned enough that they started CPR but that was stopped when paramedics arrived and advised him that that might not be necessary at that moment. She was transferred here still with significant volume overload requiring intubation but not CPR. She is now being admitted to the ICU as she is on the ventilator with significant volume overload. Hospital Course Dialysis initiated and pt. had improvement of respiratory function. Was able to be extubated the following day. Continued to have HD throughout her hospital stay. Pulmonary and cardiology involved in her care. Cardiology changed pt.'s ACEi to Entresto w/ hope that this will prevent recurrent episodes. Pt. stabilized from medical standpoint and ready for d/c home. Home Meds Active Scripts Sevelamer Carbonate* (Renvela*) 800 Mg Tablet, 800 MG PO WITH MEALS for 30 Days, #90 TAB Prov:MARGARITO VIVAR MD 03/04/18 Aspirin (Aspirin) 81 Mg Chew, 81 MG PO DAILY for 30 Days, #30 TAB Prov:MARGARITO VIVAR MD 03/04/18 Atorvastatin* (Atorvastatin*) 80 Mg Tablet, 80 MG PO DAILY for 30 Days, #30 TAB 1 Refill Prov:MARGARITO VIVAR MD 03/04/18 Tiotropium [place]* (Spiriva*) 18 Mcg Cap.w.dev, 1 INH INH DAILY for 30 Days, #30 CAP 1 Refill Prov:MARGARITO VIVAR MD 03/04/18 Reported Medications Nitroglycerin* (Nitroglycerin* SL) 0.4 Mg Tab.subl, 0.4 MG SL Q5MIN PRN for CHEST PAIN, BOTTLE 05/25/18 Lisinopril* (Lisinopril*) 10 Mg Tablet, 10 MG PO DAILY, #30 TAB 05/25/18 Clopidogrel Bisulfate* (Clopidogrel Bisulfate*) 75 Mg Tablet, 75 MG PO DAILY, #30 TAB 05/25/18 Sennosides* (Senna Lax*) 8.6 Mg Tablet, 1 TAB PO BID, TAB 05/09/18 Temazepam* (Temazepam*) 30 Mg Capsule, 30 MG PO HS PRN for INSOMNIA, CAP 05/09/18 Levetiracetam* (Levetiracetam*) 500 Mg Tablet, 500 MG PO BID, TAB 05/09/18 Metoprolol Tartrate* (Lopressor*) 25 Mg Tab, 25 MG PO BID, #60 TAB 05/09/18 Hydrocodone/Acetaminophen ([place] 10-325 Tablet) 1 Each Tablet, 1 EACH PO NEEDED, TAB 05/09/18 Levothyroxine Sodium* (Levothyroxine Sodium*) 200 Mcg Tablet, 200 MCG PO BEFORE BREAKFAST, #30 TAB 05/09/18 Follow-up Plan HD as scheduled. Cardiology 10 days. PMD 14 days Primary Care Provider Tae Stephens MD Time spent on discharge: > 30 minutes Pending Labs Laboratory Tests Test 06/13/18 11:37 06/13/18 17:38 06/13/18 20:20 06/14/18 06:13 Bedside 164 140 120 112 Glucose mg/dL (70-220) mg/dL (70-220) mg/dL (70-220) mg/dL (70-220) KEZIA COLBERT MD June 14, 2018 07:05
[2018-06-14] MEDS ORDERED: LYRI25 PO (07:08)
[2018-06-14] MEDS ORDERED: SACU1TAB PO (07:08)
[2018-06-14] MEDS: SEVELAMER CARBONATE 0.8 GM PKT NGT SCH ×2 (08:00→12:00)
[2018-06-14] MEDS: PREGABALIN 25 MG CAP PO SCH ×2 (08:59→15:23)
[2018-06-14] MEDS: CETAPHIL CLEANSER TOP SCH ×2 (09:00→15:24)
[2018-06-14] MEDS: BALSAM PERU/CASTOR OIL 60 GM TUBE TOP SCH (09:00)
[2018-06-14] MEDS: SACUBITRIL/VALSARTAN (24mg-26mg) TABLET PO SCH (09:00)
[2018-06-14] MEDS: METOPROLOL (XL) 25 MG TAB PO SCH (09:00)
[2018-06-14] MEDS: LEVETIRACETAM 500 MG TAB NGT SCH (09:01)
[2018-06-14] MEDS: FAMOTIDINE 20 MG TAB NGT SCH (09:01)
[2018-06-14] MEDS: SENNA TAB NGT SCH (09:02)
[2018-06-14] MEDS: ASPIRIN 81 MG TAB NGT SCH (09:03)
[2018-06-14] MEDS: CLOPIDOGREL 75 MG TAB NGT SCH (09:03)
--- NOTE | 2018-06-14 11:42 | CONS ---
Assessment/Plan Assessment/Plan Hospital Course (Demo Recall) 1. End-stage renal disease. HD today 2. Hypertension, improved. Continue current blood pressure regimen. 3. Anemia. Continue to monitor hemoglobin and hematocrit levels. Hold Epogen at this time. 4. Mineral bone disorder, monitor calcium and phosphorus levels. Continue phosphate binders. 5. Encephalopathy, improving. 6. Coronary artery disease. Continue current treatment plan. 7. Dyslipidemia. Continue statin therapy. 8. History of cardiac arrest. 9. Volume overload, improving. 10. Status post respiratory failure. Consultation Date/Type/Reason Admit Date/Time Jun 06, 2018 at 08:42 Initial Consult Date 06/07/18 Requesting Provider: MARGARITO VIVAR MD Date/Time of Note DATE: 06/14/18 TIME: 11:40 24 HR Interval Summary Free Text/Dictation denies n/v or shortness of breath d/w rn gen nad cv rrr pulm ctab abd soft, nd, nt +bs ext: no edema Exam/Review of Systems Exam Vitals Vital Signs Date Temp Pulse Resp B/P (MAP) Pulse Ox O2 O2 Flow FiO2 Time Delivery Rate 06/14/18 74 11:25 06/14/18 97.5 18 133/62 93 07:48 (85) 06/12/18 Room Air 16:25 06/11/18 2.0 15:05 Intake and Output 06/13/18 06/13/18 06/14/18 1515:00 23:00 07:00 IntakeIntake Total 240 ml 750 ml BalanceBalance 240 ml 750 ml Results Result Diagram: 06/12/18 0446 Results 24hrs Laboratory Tests Test 06/13/18 17:38 06/13/18 20:20 06/14/18 06:13 06/14/18 11:17 Bedside Glucose 140 120 112 White Blood Count Pending Red Blood Count Pending Hemoglobin Pending Hematocrit Pending Mean Corpuscular Volume Pending Mean Corpuscular Pending Hemoglobin Mean Corpuscular Pending Hemoglobin Concent Red Cell Distribution Pending Width Platelet Count Pending Mean Platelet Volume Pending Medications Medication Current Medications Albuterol/ Ipratropium (Duoneb) 3 ml Q2H RESP THERAPY PRN NEB SHORTNESS OF BREATH; Start 06/06/18 at 10:30 Acetaminophen (Tylenol Supp) 650 mg Q4H PRN [place] PAIN LEVEL 1-3 OR FEVER; Start 06/06/18 at 10:30 Nitroglycerin (Nitroglycerin (Sl Tab) 0.4 Mg) 1 tab [id number] PRN SL CHEST PAIN; Start 06/06/18 at 10:30 Tiotropium [place] (Spiriva) 1 inh DAILY INH Last administered on 06/13/18 10:30; Admin Dose 1 INH; Start 06/07/18 at 09:00 Zolpidem Tartrate (Ambien) 5 mg HS PRN PO INSOMNIA Last administered on 06/09/18 20:50; Admin Dose 5 MG; Start 06/06/18 at 21:00 Aspirin (Aspirin) 81 mg DAILY NGT Last administered on 06/14/18 09:03; Admin Dose 81 MG; Start 06/07/18 at 09:00 Atorvastatin Calcium (Lipitor) 80 mg QHS NGT Last administered on 06/13/18 20:17; Admin Dose 80 MG; Start 06/07/18 at 21:00 Clopidogrel Bisulfate (plaVIX) 75 mg DAILY NGT Last administered on 06/14/18 09:03; Admin Dose 75 MG; Start 06/07/18 at 09:00 Levetiracetam (Keppra) 500 mg BID NGT Last administered on 06/14/18 09:01; Admin Dose 500 MG; Start 06/07/18 at 09:00 Levothyroxine Sodium (Synthroid) 200 mcg BEFORE BREAKFAST NGT Last a dministered on 06/14/18 06:10; Admin Dose 200 MCG; Start 06/07/18 at 07:00 Senna (Senokot) 1 tab BID NGT Last administered on 06/14/18 09:02; Admin Dose 1 TAB; Start 06/07/18 at 09:00 Sevelamer Carbonate (Renvela) 0.8 gm WITH MEALS NGT Last administered on 06/09/18 17:34; Admin Dose 0.8 GM; Start 06/07/18 at 07:35 Epoetin Geo-epbx (RETACRIT(esrd)) 10,000 unit MoWeFr@1700 SC Last administered on 06/10/18 18:31; Admin Dose 10,000 UNIT; Start 06/08/18 at 17:00; Status Hold Famotidine (Pepcid) 20 mg DAILY NGT Last administered on 06/14/18 09:01; Admin Dose 20 MG; Start 06/09/18 at 09:00 Sacubitril/ Valsartan (Entresto 24 Mg-26 Mg) 1 tab BID PO Last administered on 06/13/18 20:17; Admin Dose 1 TAB; Start 06/10/18 at 21:00 Metoprolol Succinate (Toprol Xl) 25 mg BID PO Last administered on 06/13/18 20:17; Admin Dose 25 MG; Start 06/09/18 at 21:00 Naproxen (Naprosyn) 500 mg BID PRN PO pain; Start 06/10/18 at 10:30 Alprazolam (Xanax) 0.25 mg Q12H PRN PO ANXIETY Last administered on 06/12/18 23:11; Admin Dose 0.25 MG; Start 06/10/18 at 10:30 Diagnostic Test (Pha) (Accu-Chek) 1 ea AC MEALS AND BEDTIME XX Last administered on 06/14/18 06:14; Admin Dose 1 EA; Start 06/11/18 at 07:00 Diphenhydramine HCl (Benadryl) 25 mg Q8H PRN PO ITCHING Last administered on 06/14/18 06:10; Admin Dose 25 MG; Start 06/11/18 at 16:30 Multi-Ingredient Lotion (Cetaphil Cleanser) 1 applic TID TOP Last administered on 06/13/18 20:16; Admin Dose 1 APPLIC; Start 06/13/18 at 09:00 Pregabalin (Lyrica) 25 mg TID PO Last administered on 06/14/18 08:59; Admin Dose 25 MG; Start 06/13/18 at 09:00 YESENIA JACOME MD June 14, 2018 11:42
[2018-06-14] MEDS: TIOTROPIUM 18 MCG CAPSULE INHA DEV INH SCH (11:52)
--- NOTE | 2018-06-14 13:44 | CONS ---
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% Mitral and tricuspid valve regurgitation CAD status post PCI to INDEPENDENT JEWELER of RCA End-stage renal disease on hemodialysis -Continue dual antiplatelet therapy, statin therapy, beta-mariaelena as heart rate and blood pressure permits -Repeat echocardiogram on this admission with slight improvement in ejection fraction to 40%, patient with moderate mitral valve regurgitation -Given recurrent decompensated congestive heart failure, we have stopped JIMENEZ inhibitor and initiated Entresto -As mentioned, patient with recent chronic total occlusion intervention of the RCA performed at [facility] which was complicated by cardiac arrest. The angiogram I performed prior to that in approximately November 2017 with patent LAD, circumflex was a small caliber vessel and diseased, not amendable to percutaneous coronary intervention and a complete occlusion of the RCA which was recently fixed at [facility]. I have requested the films from [facility] (which we have still not received), but based on the history, I do not think any further for percutaneous coronary intervention is necessary at the current time -Fluid management via hemodialysis as per nephrology -MI planning Exam/Review of Systems Vital Signs Vitals Vital Signs Date Temp Pulse Resp B/P (MAP) Pulse Ox O2 O2 Flow FiO2 Time Delivery Rate 06/14/18 78 12:40 06/14/18 16 114/61 98 Room Air 11:25 (78) 06/14/18 97.5 07:48 06/11/18 2.0 15:05 Intake and Output 06/13/18 06/13/18 06/14/18 1515:00 23:00 07:00 IntakeIntake Total 240 ml 750 ml BalanceBalance 240 ml 750 ml Exam Constitutional: frail (drowzy but arousable undergoing dialysis) Respiratory: clear to auscultation Cardiovascular: regular rate and rhythm Extremities: No edema Labs Result Diagram: 06/14/18 1117 06/14/18 1117 Results 24hrs Laboratory Tests Test 06/13/18 17:38 06/13/18 20:20 06/14/18 06:13 06/14/18 11:17 Bedside Glucose 140 120 112 White Blood Count 3.3 L Red Blood Count 4.16 #L Hemoglobin 11.5 L Hematocrit 38.0 # Mean Corpuscular Volume 91.3 Mean Corpuscular 27.6 L Hemoglobin Mean Corpuscular 30.3 L Hemoglobin Concent Red Cell Distribution 19.8 H Width Platelet Count 146 # Mean Platelet Volume 10.8 H Immature Granulocytes % 0.000 L Neutrophils % 25.1 L Lymphocytes % 54.2 H Monocytes % 12.9 H Eosinophils % 6.3 Basophils % 1.5 Nucleated Red Blood 0.0 Cells % Immature Granulocytes # 0.000 Neutrophils # 0.8 L Lymphocytes # 1.8 Monocytes # 0.4 Eosinophils # 0.2 Basophils # 0.1 Nucleated Red Blood 0.0 Cells # Sodium Level 144 Potassium Level 4.3 Chloride Level 104 Carbon Dioxide Level 29 Anion Gap 11 Blood Urea Nitrogen 18 Creatinine 6.83 H Est Glomerular Filtrat 8 L Rate mL/min Glucose Level 103 Calcium Level 9.4 Phosphorus Level 5.0 H Magnesium Level 2.2 Test 06/14/18 12:04 Bedside Glucose 90 Medications Medications Current Medications Albuterol/ Ipratropium (Duoneb) 3 ml Q2H RESP THERAPY PRN NEB SHORTNESS OF B REATH; Start 06/06/18 at 10:30 Acetaminophen (Tylenol Supp) 650 mg Q4H PRN [place] PAIN LEVEL 1-3 OR FEVER; Start 06/06/18 at 10:30 Nitroglycerin (Nitroglycerin (Sl Tab) 0.4 Mg) 1 tab [id number] PRN SL CHEST PAIN; Start 06/06/18 at 10:30 Tiotropium [place] (Spiriva) 1 inh DAILY INH Last administered on 06/13/18at 10:30; Admin Dose 1 INH; Start 06/07/18 at 09:00 Zolpidem Tartrate (Ambien) 5 mg HS PRN PO INSOMNIA Last administered on 06/09/18 20:50; Admin Dose 5 MG; Start 06/06/18 at 21:00 Aspirin (Aspirin) 81 mg DAILY NGT Last administered on 06/14/18 09:03; Admin Dose 81 MG; Start 06/07/18 at 09:00 Atorvastatin Calcium (Lipitor) 80 mg QHS NGT Last administered on 06/13/18 20:17; Admin Dose 80 MG; Start 06/07/18 at 21:00 Clopidogrel Bisulfate (plaVIX) 75 mg DAILY NGT Last administered on 06/14/18 09:03; Admin Dose 75 MG; Start 06/07/18 at 09:00 Levetiracetam (Keppra) 500 mg BID NGT Last administered on 06/14/18 09:01; Admin Dose 500 MG; Start 06/07/18 at 09:00 Levothyroxine Sodium (Synthroid) 200 mcg BEFORE BREAKFAST NGT Last administered on 06/14/18 06:10; Admin Dose 200 MCG; Start 06/07/18 at 07:00 Senna (Senokot) 1 tab BID NGT Last administered on 06/14/18 09:02; Admin Dose 1 TAB; Start 06/07/18 at 09:00 Sevelamer Carbonate (Renvela) 0.8 gm WITH MEALS NGT Last administered on 06/09/18 17:34; Admin Dose 0.8 GM; Start 06/07/18 at 07:35 Epoetin Geo-epbx (RETACRIT(esrd)) 10,000 unit MoWeFr@1700 SC Last administered on 06/10/18 18:31; Admin Dose 10,000 UNIT; Start 06/08/18 at 17:00; Status Hold Famotidine (Pepcid) 20 mg DAILY NGT Last administered on 06/14/18 09:01; Admin Dose 20 MG; Start 06/09/18 at 09:00 Sacubitril/ Valsartan (Entresto 24 Mg-26 Mg) 1 tab BID PO Last administered on 06/13/18 20:17; Admin Dose 1 TAB; Start 06/10/18 at 21:00 Metoprolol Succinate (Toprol Xl) 25 mg BID PO Last administered on 06/13/18 20:17; Admin Dose 25 MG; Start 06/09/18 at 21:00 Naproxen (Naprosyn) 500 mg BID PRN PO pain; Start 06/10/18 at 10:30 Alprazolam (Xanax) 0.25 mg Q12H PRN PO ANXIETY Last administered on 06/12/18 23:11; Admin Dose 0.25 MG; Start 06/10/18 at 10:30 Diagnostic Test (Pha) (Accu-Chek) 1 ea AC MEALS AND BEDTIME XX Last administered on 06/14/18 12:36; Admin Dose 1 EA; Start 06/11/18 at 07:00 Diphenhydramine HCl (Benadryl) 25 mg Q8H PRN PO ITCHING Last administered on 06/14/18 06:10; Admin Dose 25 MG; Start 06/11/18 at 16:30 Multi-Ingredient Lotion (Cetaphil Cleanser) 1 applic TID TOP Last administered on 06/13/18 20:16; Admin Dose 1 APPLIC; Start 06/13/18 at 09:00 Pregabalin (Lyrica) 25 mg TID PO Last administered on 06/14/18 08:59; Admin Do se 25 MG; Start 06/13/18 at 09:00 LAURYN CORTES MD June 14, 2018 13:44
== END 2018-06-14 16:54 | disposition home or self-care (01) | DRG 682 ==
LOC: E/R 06:44 → ICU 08:42 → 6WM 19:39
PROVIDERS: ADMIT Internal Medicine; ATTEND Internal Medicine
PROC: 5A1945Z Respiratory Ventilation, 24-96 Consecutive Hours (ICD-10-PCS; principal; 2018-06-06)
PROC: 5A1D70Z Performance of Urinary Filtration, Intermittent, Less than 6 Hours Per Day (ICD-10-PCS; 2018-06-06)
PROC: 0BH17EZ Insertion of Endotracheal Airway into Trachea, Via Natural or Artificial Opening (ICD-10-PCS; 2018-06-06)
DX: I12.0 Hypertensive chronic kidney disease with stage 5 chronic kidney disease or end stage renal disease (principal); J96.01 Acute respiratory failure with hypoxia; N18.6 End stage renal disease; I50.23 Acute on chronic systolic (congestive) heart failure; G93.40 Encephalopathy, unspecified; N25.81 Secondary hyperparathyroidism of renal origin; F32.2 Major depressive disorder, single episode, severe without psychotic features; E87.79 Other fluid overload; E11.22 Type 2 diabetes mellitus with diabetic chronic kidney disease; Z99.2 Dependence on renal dialysis; I16.0 Hypertensive urgency; G40.909 Epilepsy, unspecified, not intractable, without status epilepticus; Z98.61 Coronary angioplasty status; I25.10 Atherosclerotic heart disease of native coronary artery without angina pectoris; K76.0 Fatty (change of) liver, not elsewhere classified; I25.5 Ischemic cardiomyopathy; I34.0 Nonrheumatic mitral (valve) insufficiency; I36.1 Nonrheumatic tricuspid (valve) insufficiency
CPT/HCPCS: 31500; 36415; 36600; 70450; 71045; 80048; 80053; 82803; 82962; 83036; 83605; 83690; 83735; 84100; 84484; 85018; 85025; 85610; 85730; 86704; 86709; 86803; 87081; 87340; 90935; 93005; 93306; 94002; 94003; 94644; 94770; 96374; J1644; J1953; J2060; J2405; Q5105

== ENCOUNTER 2018-10-08 08:20 | Emergency (ER) | payer MEDICARE, OTHER ==
[~2018-10-08] VITALS: Ht 167.6 cm; Wt 65.0 kg
[~2018-10-08 08:20] MED LIST changes: +DOCU-144 PO; +LISI10TA2 ORAL; -LISI10TA2 PO; +LYRI25 PO; +NALO4SPR NS; +SACU1TAB PO
[2018-10-08 08:25] VITALS: Ht 167.6 cm; Wt 65.0 kg
[2018-10-08] MEDS ORDERED: ONDANSETRON (ODT) 4 MG TAB ODT STA (08:31)
[2018-10-08] MEDS ORDERED: HYDROCODONE/APAP (10/325) TAB PO ONE (09:00)
[2018-10-08 10:40] VITALS: BP 150/82; PULSE 82; RESP 16
== END 2018-10-08 10:41 | disposition home or self-care (01) ==
LOC: E/R 08:20
DX: S62.91XA Unspecified fracture of right hand, initial encounter for closed fracture (principal); I12.9 Hypertensive chronic kidney disease with stage 1 through stage 4 chronic kidney disease, or unspecified chronic kidney disease; N18.9 Chronic kidney disease, unspecified; E11.22 Type 2 diabetes mellitus with diabetic chronic kidney disease; F17.210 Nicotine dependence, cigarettes, uncomplicated; S40.012A Contusion of left shoulder, initial encounter; S80.02XA Contusion of left knee, initial encounter; S80.01XA Contusion of right knee, initial encounter; V47.9XXA Unspecified car occupant injured in collision with fixed or stationary object in traffic accident, initial encounter; Z79.82 Long term (current) use of aspirin; Z79.01 Long term (current) use of anticoagulants
CPT/HCPCS: 73030; 73060; 73590